=== PATIENT | female | born 1960 | race Caucasian/White ===

== ENCOUNTER 2020-01-21 14:04 | Emergency (ER) | payer SELFPAY ==
[2020-01-21 14:05] VITALS: BP 136/84; PULSE 80; RESP 18; TEMP 36.6; O2SAT 98; BMI 47.0
--- NOTE | 2020-01-21 14:27 | ED.DCSUM_ITS ---
- ER Visit Summary Date of Service: 01/21/20 Chief Complaint: Head pain History of Present Illness: The patient is a 59 F who presents with right-sided hip pain. Started 2 days ago. She states that it hurts to brush her hair and touch the right side of her head. She denies seeing any rashes. No fevers. She states that it sharp and throbbing. She took no medications for this at home. She denies any falls or trauma. Physical Examination: Vital signs reviewed. Head exam does show some tenderness of the right side of the scalp. There are no rashes seen. EENT exam unremarkable. Heart is regular rate and rhythm without murmurs. Lungs are clear to auscultation. Abdomen is soft and nontender. Extremities reveal no edema. Skin exam normal. Neurologic exam normal. Test Results: None performed Emergency Department Course and Treatment: The patient's neurologic exam is normal. Do not feel that a CT scan is necessary. I do not see any rashes that would indicate that this is shingles. He does not follow any specific dermatomal distribution. At this point I will treat her with naproxen. I will give her a primary care physician to follow-up with. She is going to monitor this area and if her rash does appear she is going to follow-up with the doctor or come back to the emergency department. Treatment Plan: [] Disposition: Discharge Impression: Cephalgia This note was generated with [employer] dictation software. It may contain incorrect words, spelling, and punctuation that were not noted in review of the chart prior to signing ED Disposition - Plan for ED Patient: Disposition: Home or Assisted Living Instructions: ED CEPHALGIA Tension Headache Referrals: NOT,DEFINED [Primary Care Provider] - Yesica Smith [NON-STAFF] -
[2020-01-21] MEDS: Naproxen 500 MG Tablet PO (14:46)
== END 2020-01-21 15:49 | disposition home or self-care (01) ==
LOC: ED 14:44
PROVIDERS: Emergency Provider Emergency Medicine
DX: R51 Headache (principal); J44.9 Chronic obstructive pulmonary disease, unspecified; Z79.51 Long term (current) use of inhaled steroids
CPT/HCPCS: 99282

== ENCOUNTER → 2020-05-06 11:27 | Outpatient (CLI) | payer SELFPAY ==
--- NOTE | 2020-05-06 11:40 | RAD_ITS ---
STUDY: X-RAY - RIGHT KNEE REASON FOR EXAM: Female, 59 years old. Pain TECHNIQUE: 4 view(s) of the knee. COMPARISON: None. FINDINGS: There is no evidence of fracture or dislocation. There are mild degenerative changes in the medial compartment. There are no radiodense foreign bodies. RAD/Knee 4 or More Views IMPRESSION: No fracture or dislocation in the right knee. Mild degenerative changes in the medial compartment. Electronically Signed: Martín Che, at 19:39 EDT Tel , Service support ,
== END ==
PROVIDERS: Referring Provider Nurse Practitioner Family; Visit Provider Nurse Practitioner Family
DX: M25.561 Pain in right knee (principal)
CPT/HCPCS: 73564

== ENCOUNTER 2020-11-25 09:44 | Emergency (ER) | payer SELFPAY ==
[2020-06-22 10:20] VITALS: BMI 47.0
[2020-11-25 09:45] VITALS: BP 157/100; PULSE 98; RESP 20; TEMP 36.3; O2SAT 95; BMI 39.9
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
[2020-11-25 10:33] VITALS: BP 148/87; PULSE 71; RESP 15; O2SAT 96
== END 2020-11-25 10:34 | disposition home or self-care (01) ==
LOC: ED 10:30
PROVIDERS: Emergency Provider Emergency Medicine
DX: S63.91XA Sprain of unspecified part of right wrist and hand, initial encounter (principal); S10.91XA Abrasion of unspecified part of neck, initial encounter; J44.9 Chronic obstructive pulmonary disease, unspecified; I10 Essential (primary) hypertension; Z87.891 Personal history of nicotine dependence; Y04.2XXA Assault by strike against or bumped into by another person, initial encounter; Y93.89 Activity, other specified; Y92.009 Unspecified place in unspecified non-institutional (private) residence as the place of occurrence of the external cause; Y99.8 Other external cause status
CPT/HCPCS: 73130; 99284

== ENCOUNTER → 2020-12-29 08:39 | Outpatient (CLI) | payer SELFPAY ==
[2020-12-29 09:33] LABS: Absolute Lymphocyte Count 1.98 X10^3/uL (0.83-4.51); Absolute Neutrophil Count 3.2 X10^3/uL (2.0-7.7); Basophil# 0.04 X10^3/uL; Basophil% 0.7 % (0-1); Eosinophil# 0.12 X10^3/uL; Eosinophils% 2.1 % (0-5); Hematocrit 45.3 % (37-47); Hemoglobin 14.5 g/dL (12.0-15.0); Lymphocyte # 1.98 X10^3/ul (4.0); Lymphocyte % 35.2 % (19-41); Mean Corpuscular Hgb 27.1 pg (27.0-32.0); Mean Corpuscular Volume 84.7 fL (81-99); Mean Platelet Vol. 10.4 fl (6.2-12.0); Monocyte% 5.3 % (0-10); NRBC Flagged by Analyzer 0 % (0-5); Neutrophil # 3.17 X10^3/uL (2.7-7.7); Neutrophil % 56.5 % (47-70); Platelet Count 234 K/mm3 (150-450); RBC Distribution Width CV 14.2 % (11.6-14.6); RBC Distribution Width SD 43.8 fl (35.1-43.9); Red Blood Count 5.35 M/mm3 (4.2-5.4); White Blood Count 5.6 K/mm3 (4.4-11.0)
[2020-12-29 10:31] LABS: Anion Gap 6 (5-15); BUN 19 mg/dL (7-18); Calcium,Total 8.9 mg/dL (8.5-10.1); Chloride 109 mmol/L (98-107); Cholesterol 181 mg/dL (200); Creatinine, Serum 0.61 mg/dL (0.55-1.02); EST Glomerular Filtration Rate 105 mL/min (>60); Est Glom Filt Rate - Afr Amer 128 mL/min (>60); Glucose 111 mg/dL (74-106); High Density Lipoprotein 57 mg/dL; Potassium 4.2 mmol/L (3.5-5.1); Sodium Level 138 mmol/L (136-145); Triglycerides 118 mg/dL; Very Low Density Lipoprotein 24 mg/dL (5-40)
== END ==
LOC: LAB 08:42
PROVIDERS: Referring Provider Family Medicine; Visit Provider Family Medicine
DX: E78.5 Hyperlipidemia, unspecified (principal)
CPT/HCPCS: 36415; 80048; 80061; 85025

== ENCOUNTER → 2021-01-14 12:24 | Outpatient (CLI) | payer OTHER, SELFPAY ==
--- NOTE | 2021-01-14 12:27 | BI_ITS ---
MAMMOGRAPHY - BILATERAL SCREENING REASON FOR EXAM: Female, 60 years old. Routine annual screening examination. PERTINENT HISTORY: Non-contributory. Prior left stereotactic breast biopsy. TECHNIQUE: Digital bilateral breast mary beth (3D mammographic acquisition) in the CC and MLO projections. 2-D mediolateral oblique (MLO) and craniocaudad (CC) views of both breasts were obtained. CAD: Full Field Digital Mammography with Computer Added Detection was performed. COMPARISON: Comparison is made with prior EXAMINATION dated 12/22/2008. FINDINGS: Breast Composition: The breasts are heterogeneously dense, which may obscure small masses. There are no dominant masses or suspicious calcifications. Tissue clip marker is seen in the upper lateral aspect of the left breast. A tissue clip marker is also seen in the anterior upper retroareolar region of the left breast as well. Stable small benign appearing bilateral axillary lymph nodes. No other significant abnormalities are identified. There has been no significant change since the prior study. BI/SCRN MAMM (CAD)W/MARY BETH BILAT IMPRESSION: Stable bilateral screening mammogram. Yearly follow-up mammogram recommended. (A) ASSESSMENT CATEGORY: BIRADS Category 2: Benign. A letter regarding these results will be sent to the patient by the facility within 30 days. Approximately 10% of breast cancers are not detected by mammography. A normal mammogram should not delay biopsy of a clinically suspicious abnormality. [id number] Electronically Signed: Geovanny Kent MD at 13:19 EDT , Service support ,
== END ==
DX: Z12.31 Encounter for screening mammogram for malignant neoplasm of breast (principal)
CPT/HCPCS: 77063; 77067

== ENCOUNTER → 2022-02-03 | Outpatient (CLI) | payer SELFPAY ==
--- NOTE | 2022-02-03 13:01 | BI_ITS ---
MAMMOGRAPHY - BILATERAL SCREENING REASON FOR EXAM: Female, 61 years old. Routine annual screening examination. PERTINENT HISTORY: Non-contributory. Remote left stereotactic breast biopsy. TECHNIQUE: Digital bilateral breast maryb eth (3D mammographic acquisition) in the CC and MLO projections. 2-D mediolateral oblique (MLO) and craniocaudad (CC) views of both breasts were obtained. CAD: Full Field Digital Mammography with Computer Added Detection was performed. COMPARISON: Comparison is made with prior study dated 01/14/2021. FINDINGS: Breast Composition: The breasts are heterogeneously dense, which may obscure small masses. There are no dominant masses or suspicious calcifications. Stable benign appearing bilateral axillary lymph nodes. A tissue clip marker is once again seen in the upper lateral aspect of the left breast as well as in the retroareolar region. No other significant abnormalities are identified. There has been no significant change since the prior study. BI/SCRN MAMM (CAD)W/MARY BETH BILAT IMPRESSION: Stable bilateral screening mammogram. Yearly follow-up mammogram recommended. (A) ASSESSMENT CATEGORY: BIRADS Category 2: Benign. A letter regarding these results will be sent to the patient by the facility within 30 days. Approximately 10% of breast cancers are not detected by mammography. A normal mammogram should not delay biopsy of a clinically suspicious abnormality. [id number] Electronically Signed: Geovanny Kent MD at 14:26 EDT ,
== END | disposition home or self-care (01) ==
LOC: OPBI 12:57
PROVIDERS: Visit Provider Nurse Practitioner Adult Health
DX: Z12.31 Encounter for screening mammogram for malignant neoplasm of breast (principal)
CPT/HCPCS: 77063; 77067

== ENCOUNTER 2022-09-07 13:01 | Inpatient (IN) | payer SELFPAY ==
[2022-09-07 13:02] VITALS: BP 132/78; PULSE 87; RESP 16; TEMP 36.6; O2SAT 96; BMI 40.1
--- NOTE | 2022-09-07 13:11 | EKG12_ITS ---
Test Reason : CP Blood Pressure : / mmHG Vent. Rate : 079 BPM Atrial Rate : 079 BPM P-R Int : 176 ms QRS Dur : 146 ms QT Int : 428 ms P-R-T Axes : 053 048 061 degrees QTc Int : 490 ms Normal sinus rhythm Right bundle branch block Abnormal ECG Confirmed by KYLAH COREY, JHOAN ([id number]), acquisition editor ALEXIS ROSS ([id number]) on 09/09/2022 10:28:31 A M Referred By: SEAN Confirmed By:ROSIBEL MONTERO MD
[2022-09-07 13:26] LABS: Absolute Lymphocyte Count 2.07 X10^3/uL (0.83-4.51); Absolute Neutrophil Count 2.7 X10^3/uL (2.0-7.7); Basophil# 0.03 X10^3/uL; Basophil% 0.6 % (0-1); Eosinophil# 0.14 X10^3/uL; Eosinophils% 2.7 % (0-5); Hematocrit 43.3 % (37-47); Hemoglobin 13.9 g/dL (12.0-15.0); Lymphocyte # 2.07 X10^3/ul (0.83-4.51); Lymphocyte % 39.4 % (19-41); Mean Corp Hgb Conc 32.1 g/dL (32-36); Mean Corpuscular Hgb 27.4 pg (27.0-32.0); Mean Corpuscular Volume 85.2 fL (81-99); Mean Platelet Vol. 10.3 fl (6.2-12.0); Monocyte# 0.29 X10^3/uL; Monocyte% 5.5 % (0-10); NRBC Flagged by Analyzer 0 % (0-5); Neutrophil % 51.4 % (47-70); Platelet Count 207 K/mm3 (150-450); RBC Distribution Width CV 13.8 % (11.6-14.6); RBC Distribution Width SD 42.9 fl (35.1-43.9); Red Blood Count 5.08 M/mm3 (4.2-5.4); White Blood Count 5.3 K/mm3 (4.4-11.0)
--- NOTE | 2022-09-07 13:50 | RAD_ITS ---
STUDY: X-RAY CHEST REASON FOR EXAM: Female, 62 years old. Chest pain TECHNIQUE: Single AP portable view of the chest. COMPARISON: None. FINDINGS: The lungs are clear and expanded. There is no demonstrated pleural abnormality. Normal size heart. Normal mediastinum and seema. Normal visualized pulmonary arteries. Normal visualized aortic arch and descending thoracic aorta. Normal visualized thoracic spine. Normal visualized ribs, clavicles, and shoulders. There is no demonstrated abnormality of the visualized soft tissue structures of the upper abdomen. RAD/Chest 1 View (Portable) IMPRESSION: Normal x-ray examination of the chest. Electronically Signed: Geovanny Kent MD at 14:12 EST ,
[2022-09-07 13:51] LABS: Anion Gap 5 (5-15); BUN 23 mg/dL (7-18); BUN/Creat Ratio 39.5 RATIO (10-20); Calcium,Total 8.8 mg/dL (8.5-10.1); Chloride 112 mmol/L (98-107); Creatinine, Serum 0.58 mg/dL (0.55-1.02); EST Glomerular Filtration Rate 111 mL/min (>60); Est Glom Filt Rate - Afr Amer 134 mL/min (>60); Estimated Creatinine Clearance 127.25 ml/min; Glucose 140 mg/dL (74-106); Potassium 3.8 mmol/L (3.5-5.1); Sodium Level 141 mmol/L (136-145); Troponin-I HS 121 pg/mL (3.0-54.0)
--- NOTE | 2022-09-07 15:00 | EDS_ITS ---
HPI History of Present Illness Chief Complaint: Nausea/Vomiting Informant: patient Narrative Narrative: 3-day history of nausea and vomiting. Initial symptoms with lightheaded symptoms prior to vomiting. She states too many to count. Nonbloody. Yesterday reported vomiting and diarrhea all day. No recent antibiotics. No abdominal pain. Reports occasional headache. Today no vomiting or diarrhea is tolerating oral fluids. Further discussion after midnight awakening with sharp chest pains left side with nausea lasted an hour. It reoccurred at 9:30 AM this morning similar presentation. No current symptoms. History of hypertension borderline diabetes hyperlipidemia. Remote tobacco history. History of COPD no home oxygen. Reports could not finish her stress test a year ago when she was referred to cardiology at [place]. No history of heart caths. Denies any allergies. Nonvaccinated for COVID. Denies myalgias. Reports had a melanoma removal 6 months ago under local analgesia left posterior shoulder. Prior similar symptoms: No PFSH PFSH Medical History COPD (chronic obstructive pulmonary disease) Diabetes GERD (gastroesophageal reflux disease) Hypertension Migraines Home Medications ergocalciferol (vitamin D2) 1,250 mcg (50,000 unit) capsule 1 cap PO FR SUPPLEMENT 01/21/20 [History Last Taken 09/02/22] lisinopril 10 mg tablet 10 mg PO DAILY 01/21/20 [History Last Taken 09/06/22] lovastatin 20 mg tablet,extended release 24 hr 20 mg PO QHS 01/21/20 [History Last Taken 09/06/22] montelukast 10 mg tablet 10 mg PO DAILY@1700 ALLERGIES 01/21/20 [History Last Taken 09/06/22 17:00] loratadine 10 mg tablet 10 mg PO DAILY@1700 ALLERGIES 06/22/20 [History Last Taken 09/06/22 17:00] ascorbic acid (vitamin C) 500 mg tablet (Vitamin C) 500 mg PO DAILY 09/07/22 [History Last Taken 09/06/22] omeprazole 40 mg capsule,delayed release 40 mg PO DAILY GERD 09/07/22 [History Last Taken 09/07/22] Allergy/AdvReac Type Severity Reaction Status Date / Time No Known Allergies Allergy Verified 09/07/22 13:04 Surgical History H/O knee surgery H/O: hysterectomy Social History Smoking Status: Former smoker alcohol intake: former substance use type: does not use ROS ROS ED Constitutional Constitutional ED: Denies chills, fever(s) or sweats Eyes Eyes: Denies change in vision ENT ENT ED: Denies dysphagia or sore throat Cardiovascular Cardiovascular: Reports chest pain; Denies leg edema, palpitations or racing heartbeat Respiratory/Chest Respiratory/Chest: Denies cough, dyspnea or dyspnea on exertion Gastrointestinal Gastrointestinal: Reports diarrhea and vomiting; Denies abdominal pain or nausea Genitourinary Genitourinary ED: Denies dysuria, hematuria or urinary frequency Musculoskeletal Musculoskeletal: Denies back pain, extremity pain or neck pain Integumentary Denies rash or wounds Neurologic Neurologic: Reports headache(s); Denies paresthesias or weakness EXAM Physical Exam Const Vital Signs: 09/07/22 13:02 09/07/22 13:12 09/07/22 14:00 Temperature 98 F Temperature Source Temporal Pulse Rate 87 Respiratory Rate 16 Respiratory Effort Normal Non-Labored Respiratory Pattern Normal Blood Pressure 132/78 H Blood Pressure Mean 96 Pulse Ox 96 Oxygen Delivery Method Room Air Room Air MDM MDM MDM Narrative Medical decision making narrative: Patient EKG new right bundle branch block compared to 2014 new T wave version V3. Currently no chest pains no abdominal pain. Moist mucosal membranes. Nursing protocol initiated work-up, 1 view chest x-ray reviewed by myself and read by radiology shows no acute process. Labs with normal creatinine 0.58. White count 5.3 hemoglobin 13.9. Troponin returned at 121. Patient meeting NSTEMI criteria 2 episodes chest pains today. She has risk factors. However was pretty atypical with sharp pains. No recent PE risk factors. She was given aspirin for her NSTEMI criteria. I spoke with covering skin care specialist Dr. Dee, no further anticoagulation at this time with atypical presentation. We will trend troponins and decide at that time. He will follow as a clinical sales consultant and decide further testing. I spoke with hospitalist Dr. Vazquez for admission to PCU. I did add a COVID testing with her vomiting and diarrhea and headaches. She is nonvaccinated for COVID. COVID returned negative. Repeat troponin down to 118. Lab Data Attestation: I reviewed the patient's lab results. Labs: Laboratory Results - last 24 hr 09/07/22 09/07/22 09/07/22 13:15 13:15 13:15 WBC 5.3 RBC 5.08 Hgb 13.9 Hct 43.3 MCV 85.2 MCH 27.4 MCHC 32.1 RDW Std Deviation 42.9 RDW Coeff of Kameron 13.8 Plt Count 207 MPV 10.3 Immature Gran % (Auto) 0.400 Neut % (Auto) 51.4 Lymph % (Auto) 39.4 [place] % (Auto) 5.5 Eos % (Auto) 2.7 Baso % (Auto) 0.6 Absolute Neuts (auto) 2.7 Absolute Lymphs (auto) 2.07 Nucleated RBC % 0 PT 13.1 INR 1.0 APTT 27.9 Sodium 141 Potassium 3.8 Chloride 112 H Carbon Dioxide 24.0 Anion Gap 5 BUN 23 H Creatinine 0.58 Estim Creat Clear Calc 127.25 Est GFR (MDRD) Af Amer 134 Est GFR (MDRD) Non-Af 111 BUN/Creatinine Ratio 39.5 H Glucose 140 H Calcium 8.8 Troponin I High Sens 121 H* 09/07/22 15:06 WBC RBC Hgb Hct MCV MCH MCHC RDW Std Deviation RDW Coeff of Kameron Plt Count MPV Immature Gran % (Auto) Neut % (Auto) Lymph % (Auto) [place] % (Auto) Eos % (Auto) Baso % (Auto) Absolute Neuts (auto) Absolute Lymphs (auto) Nucleated RBC % PT INR APTT Sodium Potassium Chloride Carbon Dioxide Anion Gap BUN Creatinine Estim Creat Clear Calc Est GFR (MDRD) Af Amer Est GFR (MDRD) Non-Af BUN/Creatinine Ratio Glucose Calcium Troponin I High Sens 118 H Radiography Diagnostic Testing: Clinical Impression(s) from Imaging Studies Chest X-Ray 09/07/22 13:50 IMPRESSION: Normal x-ray examination of the chest. Electronically Signed: Geovanny Kent MD at 14:12 EST , Critical Care Time Critical Care Time: Yes Critical care time (excluding procedures): 30-74 minutes, Discussing w/Patient &/or Family/Quick Print Operator, Discussing w/Consultants, Arranging Admission or Transfer, Performing Direct Patient Care at Bedside and - (35 minutes) Discharge Plan Dx/Rx/DC Orders Clinical Impression: Non-ST elevation MT (NSTEMI), Chest pain, Vomiting and diarrhea Disposition Disposition: Acute Care Hospital [facility] Discharge Date/Time: 09/07/22 16:05
[2022-09-07] MEDS: Aspirin 81 MG TAB.CHEW 324 MG PO (15:09)
[2022-09-07] MEDS: 0.9% Normal Saline 1,000 ML 100 ML IV (15:09)
--- NOTE | 2022-09-07 15:09 | NURSING ---
DR BLUE GLASS
--- NOTE | 2022-09-07 15:13 | HP.PCM.HOS_ITS ---
HPI - General General Date of Admission: 09/07/22 Date of Service: 09/07/22 Chief Complaint: Nausea, vomiting - a day prior Chest pain -on and off, 2 days HPI Flower SHERIDAN, is a 62 F who presents with the above. Patient has past medical history of hypertension, hyperlipidemia, GERD who started having nausea and vomiting a day prior to admission. This was associated with chest pain that came on and off. She denied any diaphoresis, palpitations but admits to dizziness. She denied eating any new food, sick contacts, fever or chills. She has not had any nausea or vomiting today because she had no eating. Patient describes the chest pain as sharp, substernal, comes on and off, lasts about an hour, not related to activity. Vitals in the ED showed BP of 132/78, heart rate 87, RR 16, temperature 98F, oxygen sat 98% on room air. CBCD and CMP is unremarkable. Troponins are 121-->118. EKG shows new RBBB. Chest x-ray is unremarkable. [facility] Medical History COPD (chronic obstructive pulmonary disease) Diabetes GERD (gastroesophageal reflux disease) Hypertension Migraines Home Medications ergocalciferol (vitamin D2) 1,250 mcg (50,000 unit) capsule 1 cap PO FR SUPPLEMENT 01/21/20 [History Last Taken 09/02/22] lisinopril 10 mg tablet 10 mg PO DAILY 01/21/20 [History Last Taken 09/06/22] lovastatin 20 mg tablet,extended release 24 hr 20 mg PO QHS 01/21/20 [History Last Taken 09/06/22] montelukast 10 mg tablet 10 mg PO DAILY@1700 ALLERGIES 01/21/20 [History Last Taken 09/06/22 17:00] loratadine 10 mg tablet 10 mg PO DAILY@1700 ALLERGIES 06/22/20 [History Last Taken 09/06/22 17:00] ascorbic acid (vitamin C) 500 mg tablet (Vitamin C) 500 mg PO DAILY 09/07/22 [History Last Taken 09/06/22] omeprazole 40 mg capsule,delayed release 40 mg PO DAILY GERD 09/07/22 [History Last Taken 09/07/22] Allergy/AdvReac Type Severity Reaction Status Date / Time No Known Allergies Allergy Verified 09/07/22 13:04 Surgical History (Updated 09/07/22 @ 17:[address] Mary Lou Vazquez MD) H/O knee surgery H/O: hysterectomy Social History (Updated 09/07/22 @ 17:[address] Mary Lou Vazquez MD) Smoking Status: Former smoker alcohol intake: former substance use type: does not use ROS ROS Narrative Constitutional: Denies: Anorexia, Chills, Fever, Night Sweats, Weight Change Eyes: Denies: Blurred vision, Cataracts, Conjunctivae Inflammation, Pain, Redness, Vision Change HEENT: Denies: Difficulty Hearing, Difficulty Swallowing, Head Aches, Hearing Changes, Sinus Congestion, Sinus Drainage Cardiovascular: See HPI Respiratory: Denies: Cough, Shortness of breath at rest, Sputum production Gastrointestinal: Denies: Abdominal Pain, Nausea, Vomiting Genitourinary: Denies: Dysuria Musculoskeletal: Denies: Joint Pain, Joint stiffness, Joint swelling, Joint Tenderness Skin: Denies: Rash, Wounds Neurological: Denies: Numbness, Tingling, Focal weakness Vital Signs Vital Signs Vital Signs: 09/07/22 13:02 09/07/22 13:12 09/07/22 14:00 Temperature 98 F Temperature Source Temporal Pulse Rate 87 Respiratory Rate 16 Respiratory Effort Normal Non-Labored Respiratory Pattern Normal Blood Pressure 132/78 H Blood Pressure Mean 96 Pulse Ox 96 Oxygen Delivery Method Room Air Room Air Weight Weight: 81.193 kg Body Mass Index (BMI) 40.1 Physical Exam Narrative Physical exam: General: Alert, Oriented x3, Cooperative HEENT: Atraumatic Oral: Moist Mucosa Neck: Supple Lungs: Diminished to auscultation, chest pain is not reproducible Cardiovascular: HS I+II, regular, no murmurs Abdomen: Bowel Sounds Present, Soft, Non Tender Extremities: No edema Skin: No rashes, No breakdown Neurological: Grossly intact Psych/Mental Status: Appropriate Results Lab / Micro Data Result Diagrams: 09/07/22 13:15 09/07/22 13:15 Labs: Laboratory Results - last 24 hr 09/07/22 13:15: WBC 5.3, RBC 5.08, Hgb 13.9, Hct 43.3, MCV 85.2, MCH 27.4, MCHC 32.1, RDW Std Deviation 42.9, RDW Coeff of Kameron 13.8, Plt Count 207, MPV 10.3, Immature Gran % (Auto) 0.400, Neut % (Auto) 51.4, Lymph % (Auto) 39.4, [place] % (Auto) 5.5, Eos % (Auto) 2.7, Baso % (Auto) 0.6, Absolute Neuts (auto) 2.7, Absolute Lymphs (auto) 2.07, Nucleated RBC % 0 09/07/22 13:15: Sodium 141, Potassium 3.8, Chloride 112 H, Carbon Dioxide 24.0, Anion Gap 5, BUN 23 H, Creatinine 0.58, Estim Creat Clear Calc 127.25, Est GFR (MDRD) Af Amer 134, Est GFR (MDRD) Non-Af 111, BUN/Creatinine Ratio 39.5 H, Glucose 140 H, Calcium 8.8, Troponin I High Sens 121 H* Radiology Impression Chest X-Ray 09/07/22 13:50 IMPRESSION: Normal x-ray examination of the chest. Electronically Signed: Geovanny Kent MD at 14:12 EST , Assessment & Plan Assessment/Plan (1) Non-ST elevation DC (NSTEMI): PLAN: Plan 1. Acute NSTEMI, unclear type for now, in a patient with cardiovascular risk factors EKG shows new right bundle branch block, Troponins are 121-->118 Admit to PCU, trend troponins, cardiology consult Continue aspirin, statin 2. Acute nausea and vomiting, appears resolved 3. Hypertension/Hyperlipidemia, stable Continue on lisinopril, lovastatin 4. GERD, continue on PPI. 5. Borderline diabetes, will continue to monitor with insulin sliding scale with blood glucose checks 6. DVT prophylaxis?Lovenox subcu Charges/Coding Visit Charges Inpatient E&M: 10025 Init Hosp L3
[2022-09-07 15:15] LABS: Prothrombin Time (Protime)PT. 13.1 SECONDS (11.7-14.9)
[2022-09-07 15:16] LABS: Partial Thromboplast Time 27.9 Seconds (24.1-36.2)
--- NOTE | 2022-09-07 15:25 | NURSING ---
[facility] NSTEMI, CHEST PAIN
[2022-09-07 15:34] LABS: Troponin-I HS 118 pg/mL (3.0-54.0)
[2022-09-07 16:20] VITALS: BP 134/79; PULSE 70; RESP 14; TEMP 36.7; O2SAT 97
[2022-09-07 16:21] VITALS: BMI 39.2
[2022-09-07 16:35] VITALS: PULSE 71
--- NOTE | 2022-09-07 16:47 | EKG12_ITS ---
Test Reason : AM EKG Blood Pressure : / mmHG Vent. Rate : 073 BPM Atrial Rate : 073 BPM P-R Int : 192 ms QRS Dur : 146 ms QT Int : 454 ms P-R-T Axes : 058 066 047 degrees QTc Int : 500 ms Normal sinus rhythm Right bundle branch block Abnormal ECG When compared with ECG of 07-SEP-2022 13:10, MANUAL COMPARISON REQUIRED, DATA IS UNCONFIRMED Confirmed by ISMAEL COREY, RIVERA ([id number]), photographic editor ALEXIS ROSS ([id number]) on 09/13/2022 11:31:40 AM Referred By: BLUE Confirmed By:RIVERA GUEVARA MD
--- NOTE | 2022-09-07 17:24 | PCM.CONS.C ---
Assessment & Plan Assessment/Plan (1) Chest pain: PLAN: She presents with chest discomfort with some features which appear to be noncardiac. Her cardiac enzymes are abnormal in the range of an non-ST elevation myocardial infarction. It appears that this does not particularly have a rise and fall. However due to her risk factors at this particular time I would suggest that we definitively exclude obstructive coronary disease by performing a left heart catheterization. Depending on the findings further recommendations will be made. The risk benefits alternatives have been explained to her she understands and agrees to proceed. HPI Consult Data Date of Consult: 09/07/22 HPI Narrative HPI Narrative: BOBBY SHERIDAN, is a 62 F who presents to the emergency room with a 3-day history of chest discomfort described as sharp but sometimes dull in the center of her chest occurring 3 days in a row. It was nonassertive persuaded by activity there was minimal radiation. She does have a history of hypertension hyperlipidemia and gastroesophageal reflux. She denies any dizziness or diaphoresis near syncope or syncope. In the emergency room she was evaluated with an EKG which demonstrated a right bundle branch block with no acute changes but cardiac enzymes were elevated. Cardiology was called for further evaluation and management. She says that she has been compliant with her medications and currently is pain-free. She has not had any previous cardiac testing. [facility] Medical History COPD (chronic obstructive pulmonary disease) Diabetes GERD (gastroesophageal reflux disease) Hypertension Migraines Home Medications ergocalciferol (vitamin D2) 1,250 mcg (50,000 unit) capsule 1 cap PO FR SUPPLEMENT 01/21/20 [History Last Taken 09/02/22] lisinopril 10 mg tablet 10 mg PO DAILY 01/21/20 [History Last Taken 09/06/22] lovastatin 20 mg tablet,extended release 24 hr 20 mg PO QHS 01/21/20 [History Last Taken 09/06/22] montelukast 10 mg tablet 10 mg PO DAILY@1700 ALLERGIES 01/21/20 [History Last Taken 09/06/22 17:00] loratadine 10 mg tablet 10 mg PO DAILY@1700 ALLERGIES 06/22/20 [History Last Taken 09/06/22 17:00] ascorbic acid (vitamin C) 500 mg tablet (Vitamin C) 500 mg PO DAILY 09/07/22 [History Last Taken 09/06/22] omeprazole 40 mg capsule,delayed release 40 mg PO DAILY GERD 09/07/22 [History Last Taken 09/07/22] Allergy/AdvReac Type Severity Reaction Status Date / Time No Known Allergies Allergy Verified 09/07/22 13:04 Surgical History H/O knee surgery H/O: hysterectomy Social History Smoking Status: Former smoker alcohol intake: former substance use type: does not use ROS Constitutional Constitutional: Denies fever(s) or weight loss Eyes Eyes: Reports systems reviewed and no addt'l complaints, except as documented ENT HEENT: Reports systems reviewed and no addt'l complaints, except as documented Cardiovascular Cardiovascular: Reports chest pain at rest and chest pain with activity; Denies dyspnea at rest, dyspnea on exertion, edema, palpitations or paroxysmal nocturnal dyspnea Respiratory/Chest Respiratory/Chest: Denies dyspnea on exertion, productive cough, shortness of breath at rest or shortness of breath with exertion Gastrointestinal Gastrointestinal: Denies change in bowel habits, nausea, vomiting or weight changes Genitourinary Genitourinary: Denies difficulty urinating Musculoskeletal Musculoskeletal: Denies joint stiffness or muscle weakness Integumentary Integumentary: Denies lesions Neurologic Neurologic: Denies dizziness or syncope Psychiatric Psychiatric: Denies anxiety Endocrine Endocrinology: Denies excessive sweating or fatigue Hematologic/Lymphatic Hematologic/Lymphatic: Denies anemia Allergic/Immunologic Allergic/Immunologic: Denies seasonal rhinorrhea Physical Exam Const alert, oriented x3 and no apparent distress General Appearance: cooperative HEENT hearing grossly normal bilaterally Head and Scalp: atraumatic Eyes EOMs intact bilaterally Neck General: normal visual inspection Chest inspection of chest normal and palpation of chest normal Resp normal respiratory effort Auscultation: clear to auscultation bilaterally Cardio regular rate, regular rhythm, S1 normal heart sound and S2 normal heart sound Jugular Venous Distention: JVD GI normal to inspection, nondistended, normoactive bowel sounds Extremity normal capillary refill and no pedal edema Peripheral Pulses: Yes pulses 2+ throughout and femoral pulses present Skin no rashes or lesions noted Neuro oriented x3 and CN's II-XII intact bilaterally Psych Appearance: grossly normal and appropriate Risk Stratification Risk Stratification Applicable: Yes Age >/= 65: No >/= 3 CAD Risk Factors (HTN, HLD, DM, family hx of CAD, or current smoker): No Aspirin Use in the Past 7 Days: No Severe Angina (>/= episodes in 24 hours): No EKG ST Changes >/= 0.5mm: No Positive Cardiac Marker: Yes MIAN Risk Stratification Score: 1 MIAN % Risk: 5% Risk Objective Data Vital Signs: Vital Signs Temp Pulse Resp BP Pulse Ox O2 Del Method 98.1 F 71 14 134/79 H 97 Room Air 09/07/22 16:20 09/07/22 16:35 09/07/22 16:20 09/07/22 16:20 09/07/22 16:20 09/07/22 16:43 Oxygen Delivery Method Room Air Weight: 174 lb 13.225 oz Body Mass Index (BMI) 39.2 Lab / Micro Data Result Diagrams: 09/07/22 13:15 09/07/22 13:15 Labs: Laboratory Results - last 24 hr 09/07/22 13:15: WBC 5.3, RBC 5.08, Hgb 13.9, Hct 43.3, MCV 85.2, MCH 27.4, MCHC 32.1, RDW Std Deviation 42.9, RDW Coeff of [place]amer[place] 13.8, Plt Count 207, MPV 10.3, Immature Gran % (Auto) 0.400, Neut % (Auto) 51.4, Lymph % (Auto) 39.4, [place] % (Auto) 5.5, Eos % (Auto) 2.7, Baso % (Auto) 0.6, Absolute Neuts (auto) 2.7, Absolute Lymphs (auto) 2.07, Nucleated RBC % 0 09/07/22 13:15: Sodium 141, Potassium 3.8, Chloride 112 H, Carbon Dioxide 24.0, Anion Gap 5, BUN 23 H, Creatinine 0.58, Estim Creat Clear Calc 127.25, Est GFR (MDRD) Af Amer 134, Est GFR (MDRD) Non-Af 111, BUN/Creatinine Ratio 39.5 H, Glucose 140 H, Calcium 8.8, Troponin I High Sens 121 H* 09/07/22 13:15: PT 13.1, INR 1.0, APTT 27.9 09/07/22 15:06: Troponin I High Sens 118 H Micro: Microbiology 09/07/22 14:59 Nasal Secretion SARS-CoV-2 Antigen (Rapid) - Final Cardiology Labs/Tests 09/07/22 13:15: WBC 5.3, RBC 5.08, Hgb 13.9, Hct 43.3, MCV 85.2, MCH 27.4, MCHC 32.1, Plt Count 207, MPV 10.3, Immature Gran % (Auto) 0.400, Neut % (Auto) 51.4, Lymph % (Auto) 39.4, [place] % (Auto) 5.5, Eos % (Auto) 2.7, Baso % (Auto) 0.6, Absolute Neuts (auto) 2.7, Nucleated RBC % 0 09/07/22 13:15: Sodium 141, Potassium 3.8, Chloride 112 H, Carbon Dioxide 24.0, Anion Gap 5, BUN 23 H, Creatinine 0.58, Est GFR (MDRD) Af Amer 134, Est GFR (MDRD) Non-Af 111, BUN/Creatinine Ratio 39.5 H, Glucose 140 H, Calcium 8.8 09/07/22 13:15: PT 13.1, INR 1.0, APTT 27.9 Rhythm: EKG: ECHO: Stress Test: Cardiac Cath: PCI: CT Surgery: Holter monitor: EPS: PPM: CXR: Chest CT Scan: Radiography Diagnostic Testing: Radiology Impression Chest X-Ray 09/07/22 13:50 IMPRESSION: Normal x-ray examination of the chest. Electronically Signed: Geovanny Kent MD at 14:12 EST ,
[2022-09-07] MEDS: Famotidine 200 MG/20 ML MDV 20 MG in 0.9% Normal Saline (Pres. free 8 ML 300 MG IV (17:27)
[2022-09-07 19:37] VITALS: PULSE 81
[2022-09-07 19:41] LABS: Troponin-I HS 120 pg/mL (3.0-54.0)
[2022-09-07 22:00] VITALS: BP 128/78; PULSE 78; RESP 16; TEMP 36.7; O2SAT 97
[2022-09-07] MEDS: Atorvastatin Calcium 10 MG Tablet PO (22:10)
[2022-09-07 22:31] LABS: Bedside Glucose 120 mg/dL (74-106)
[2022-09-08] VITALS (14 sets, daily range): BP systolic 117–146; BP diastolic 68–85; PULSE 66–84; RESP 12–16; TEMP 36.4–37; O2SAT 70–98
--- NOTE | 2022-09-08 05:55 | EKG12_ITS ---
Test Reason : cp Blood Pressure : / mmHG Vent. Rate : 065 BPM Atrial Rate : 065 BPM P-R Int : 184 ms QRS Dur : 144 ms QT Int : 456 ms P-R-T Axes : 043 060 045 degrees QTc Int : 474 ms Normal sinus rhythm Right bundle branch block Abnormal ECG When compared with ECG of 07-SEP-2022 13:10, MANUAL COMPARISON REQUIRED, DATA IS UNCONFIRMED Confirmed by ISMAEL COREY, RIVERA ([id number]), industrial editor ALEXIS ROSS ([id number]) on 09/13/2022 11:32:14 AM Referred By: Taylor Confirmed By:RIVERA GUEVARA MD
[2022-09-08 06:12] LABS: Absolute Lymphocyte Count 2.17 X10^3/uL (0.83-4.51); Absolute Neutrophil Count 2.4 X10^3/uL (2.0-7.7); Basophil# 0.02 X10^3/uL; Basophil% 0.4 % (0-1); Eosinophil# 0.15 X10^3/uL; Hematocrit 39.8 % (37-47); Hemoglobin 12.6 g/dL (12.0-15.0); Lymphocyte # 2.17 X10^3/ul (0.83-4.51); Lymphocyte % 43.1 % (19-41); Mean Corp Hgb Conc 31.7 g/dL (32-36); Mean Corpuscular Volume 85.4 fL (81-99); Mean Platelet Vol. 10.5 fl (6.2-12.0); Monocyte# 0.31 X10^3/uL; Monocyte% 6.2 % (0-10); NRBC Flagged by Analyzer 0 % (0-5); Neutrophil # 2.37 X10^3/uL (2.7-7.7); Neutrophil % 46.9 % (47-70); Platelet Count 190 K/mm3 (150-450); RBC Distribution Width CV 14.1 % (11.6-14.6); RBC Distribution Width SD 43.7 fl (35.1-43.9); Red Blood Count 4.66 M/mm3 (4.2-5.4)
[2022-09-08] MEDS: Lisinopril 10 MG Tablet PO (06:34)
[2022-09-08] MEDS: Aspirin 81 MG TAB.CHEW PO (06:34)
[2022-09-08 06:45] LABS: ALB/GLOB Ratio 1.2 RATIO (0.9-2.4); AST(SGOT) 18 U/L (15-37); Alanine Aminotransfer ALT/SGPT 30 U/L (13-56); Albumin, Serum 3.1 g/dL (3.2-5.0); Alkaline Phosphatase 67 U/L (45-117); Anion Gap 5 (5-15); BUN 21 mg/dL (7-18); BUN/Creat Ratio 45.3 RATIO (10-20); Calcium,Total 8.3 mg/dL (8.5-10.1); Chloride 112 mmol/L (98-107); Creatinine, Serum 0.46 mg/dL (0.55-1.02); EST Glomerular Filtration Rate 144 mL/min (>60); Est Glom Filt Rate - Afr Amer 175 mL/min (>60); Estimated Creatinine Clearance 163.43 ml/min; Globulin 2.5 g/dL (2.2-4.2); Glucose 113 mg/dL (74-106); Potassium 3.8 mmol/L (3.5-5.1); Protein, Total 5.6 g/dL (6.4-8.2); Sodium Level 141 mmol/L (136-145)
[2022-09-08 07:15] LABS: Bedside Glucose 112 mg/dL (74-106)
[2022-09-08] MEDS: 0.9% Normal Saline 1,000 ML 15 ML IV (07:42)
--- NOTE | 2022-09-08 09:17 | PN.HOSP_ITS ---
Subjective Subjective Doing well, denies any significant chest pain. Troponins are stabilized, no issues overnight Objective Data Objective Data Vital Signs: Vital Signs Temp Pulse Resp BP Pulse Ox O2 Del Method 98.6 F 72 16 146/75 H 97 Room Air 09/08/22 06:30 09/08/22 07:09 09/08/22 06:30 09/08/22 06:30 09/08/22 06:30 09/08/22 07:47 Oxygen Delivery Method Room Air Weight: 182 lb 5.156 oz Body Mass Index (BMI) 39.2 Intake & Output: Intake and Output for Last 24 Hours 09/07/22 09/08/22 09/09/22 03:59 03:59 03:59 Intake Total 621.67 / 621.67 763.33 / 763.33 Balance 621.67 / 621.67 763.33 / 763.33 Lab / Micro Data Result Diagrams: 09/08/22 05:47 09/08/22 05:47 Labs: Laboratory Results - last 24 hr 09/07/22 13:15: WBC 5.3, RBC 5.08, Hgb 13.9, Hct 43.3, MCV 85.2, MCH 27.4, MCHC 32.1, RDW Std Deviation 42.9, RDW Coeff of [place]amer[place] 13.8, Plt Count 207, MPV 10.3, Immature Gran % (Auto) 0.400, Neut % (Auto) 51.4, Lymph % (Auto) 39.4, [place] % (Auto) 5.5, Eos % (Auto) 2.7, Baso % (Auto) 0.6, Absolute Neuts (auto) 2.7, Absolute Lymphs (auto) 2.07, Nucleated RBC % 0 09/07/22 13:15: Sodium 141, Potassium 3.8, Chloride 112 H, Carbon Dioxide 24.0, Anion Gap 5, BUN 23 H, Creatinine 0.58, Estim Creat Clear Calc 127.25, Est GFR (MDRD) Af Amer 134, Est GFR (MDRD) Non-Af 111, BUN/Creatinine Ratio 39.5 H, Glucose 140 H, Calcium 8.8, Troponin I High Sens 121 H* 09/07/22 13:15: PT 13.1, INR 1.0, APTT 27.9 09/07/22 15:06: Troponin I High Sens 118 H 09/07/22 19:18: Troponin I High Sens 120 H 09/07/22 22:05: POC Glucose 120 H 09/08/22 05:47: WBC 5.0, RBC 4.66, Hgb 12.6, Hct 39.8, MCV 85.4, MCH 27.0, MCHC 31.7 L, RDW Std Deviation 43.7, RDW Coeff of [place]amer[place] 14.1, Plt Count 190, MPV 10.5, Immature Gran % (Auto) 0.400, Neut % (Auto) 46.9 L, Lymph % (Auto) 43.1 H, [place] % (Auto) 6.2, Eos % (Auto) 3.0, Baso % (Auto) 0.4, Absolute Neuts (auto) 2.4, Absolute Lymphs (auto) 2.17, Nucleated RBC % 0 09/08/22 05:47: Sodium 141, Potassium 3.8, Chloride 112 H, Carbon Dioxide 24.0, Anion Gap 5, BUN 21 H, Creatinine 0.46 L, Estim Creat Clear Calc 163.43, Est GFR (MDRD) Af Amer 175, Est GFR (MDRD) Non-Af 144, BUN/Creatinine Ratio 45.3 H, Gl ucose 113 H, Calcium 8.3 L, Total Bilirubin 0.40, AST 18, ALT 30, Alkaline Phosphatase 67, Total Protein 5.6 L, Albumin 3.1 L, Globulin 2.5, Albumin/Globulin Ratio 1.2 09/08/22 06:32: POC Glucose 112 H Micro: Microbiology 09/07/22 14:59 Nasal Secretion SARS-CoV-2 Antigen (Rapid) - Final Radiography Diagnostic Testing: Radiology Impression Chest X-Ray 09/07/22 13:50 IMPRESSION: Normal x-ray examination of the chest. Electronically Signed: Geovanny Kent MD at 14:12 EST , Physical Exam Narrative General: Alert, Oriented x3, Cooperative, No apparent distress HEENT: Atraumatic, PERRLA, EOMI, Normocephalic Oral: Moist Mucosa Neck: Supple, No JVD Lungs: Diminished, Normal air movement, No rhonchi, No wheeze, No rales Cardiovascular: Regular rate, Regular Rhythm, Normal S1, Normal S2, No murmurs Abdomen: Soft, Non Tender, Non-Distended, No Hepato-splenomegaly Extremities: No edema, Capillary Refill Less than 3 Seconds Skin: No rashes, No breakdown Musculoskeletal: No Tenderness to Palpation of Joints or Extremities Neurological: Cranial nerves II-XII grossly intact, Motor Exam 5/5 strength throughout, Sensory exam intact to light touch and pain Psych/Mental Status: Normal Affect, Appropriate Assessment & Plan Assessment/Plan (1) Non-ST elevation ID (NSTEMI): PLAN: Plan 1. Acute non-STEMI/HTN/HLD ? EKG with new right bundle branch block, troponins are stable at around 120 ? Appreciate cardiology's input ? Plan for heart cath today ? Continue with as aspirin and statin ? Continue with her blood pressure med 2. GERD ? Stable ? Continue with PPI DVT: Lovenox Charges/Coding Visit Charges Inpatient E&M: 72541 Subs Hosp L2
--- NOTE | 2022-09-08 09:57 | CL.D_ITS ---
Patient Name: BOBBY SHERIDAN Study Date: 09/08/2022 Performing: Jovani Dee MD Ht: 56 inches 142.24 cm : 1960 Wt: 182.32 lbs 82.7 kg Age: 62 Gender: female BSA: 1.71 PROCEDURE(S) PERFORMED DC01-(72484)LHC/COR/LV CLINICAL PROFILE AND INDICATIONS Indications: Suspected CAD Heart Failure: None Stress/Imaging Stress/Image Study Performed: No CAD Presentations: Symptom unlikely to be ischemic. CONCLUSIONS Normal coronary arteries Normal LV size, wall motion,and systolic function RECOMMENDATIONS Medical therapy DESCRIPTION OF PROCEDURE The patient arrived to the procedure lab. The risks and benefits of the procedure as well as a full description of our services here and current unavailability of surgical backup were fully explained to the patient and/or their significant other prior to the catheterization. The Timeout was completed, verifying the correct patient and procedure. The patient's procedural site was prepped and draped in the usual fashion. Local anesthetic was given subcutaneously to right radial region with Lidocaine 2%. Using a modified Seldinger technique, arterial access was obtained via the right radial artery, a 6Fr sheath was inserted. Left Coronary Artery selective angiography was performed in multiple views using a 5 Fr. 4.0 [place] catheter. Right Coronary Artery selective angiography was then performed in multiple views using a 5 Fr. 4.0 [place] catheter. Left Ventriculography was performed in ENRIQUEZ projection using a 5 Fr. Pigtail catheter. LV to AO pullback pressures were then recorded.The arterial sheath was pulled and a TR Band was applied for hemostasis CORONARY ANGIOGRAPHY DOMINANCE: Right Dominant LEFT HEART ASSESSMENT Left Ventricular Ejection Fraction: by LV Gram 60 % Normal LV wall motion Normal Left Ventricular systolic function Normal Left Ventricular systolic function LEFT MAIN: Angiographically normal LEFT ANTERIOR DESCENDING ARTERY: Angiographically normal CIRCUMFLEX ARTERY: Angiographically normal RIGHT CORONARY ARTERY: Angiographically normal COMPLICATIONS PROCEDURE MEDICATIONS Fentanyl 50 mcg IV Versed 1 mg IV Versed 1 mg IV Oxygen: 2 L/min via nasal cannula Heparin given IA 09/08/2022 09:40:17 Verapamil 2.5mg, Ntg 100mcgs, 3000 units of Heparin given IA 09/08/2022 09:40:17 SUMMARY OF HEMODYNAMIC DATA Time AIR REST ECG 09:12:54 ECG 09:13:30 AO 138/78 (104) SA 09:42:28 LV 119/14, 23 09:48:07 LV 125/12, 21 09:48:09 LV 122/16, 26 09:48:58 LVp 128/13, 26 09:49:03 AOp 132/76 (100) 09:49:08 Signed By Jovani Dee MD On 09/08/2022 09:57:04 Jovani Dee MD
--- NOTE | 2022-09-08 09:59 | PCM.PN.CARD ---
Subjective Subjective Patient seen and evaluated Objective Data Vital Signs: Vital Signs Temp Pulse Resp BP Pulse Ox O2 Del Method 98.6 F 72 16 146/75 H 97 Room Air 09/08/22 06:30 09/08/22 07:09 09/08/22 06:30 09/08/22 06:30 09/08/22 06:30 09/08/22 07:47 Oxygen Delivery Method Room Air Weight: 182 lb 5.156 oz Body Mass Index (BMI) 39.2 Intake & Output: Intake and Output for Last 24 Hours 09/06/22 09/07/22 09/08/22 23:59 23:59 23:59 Intake Total 621.67 / 621.67 763.33 / 763.33 Balance 621.67 / 621.67 763.33 / 763.33 Lab / Micro Data Result Diagrams: 09/08/22 05:47 09/08/22 05:47 Labs: Laboratory Results - last 24 hr 09/07/22 13:15: WBC 5.3, RBC 5.08, Hgb 13.9, Hct 43.3, MCV 85.2, MCH 27.4, MCHC 32.1, RDW Std Deviation 42.9, RDW Coeff of Kameron 13.8, Plt Count 207, MPV 10.3, Immature Gran % (Auto) 0.400, Neut % (Auto) 51.4, Lymph % (Auto) 39.4, [place] % (Auto) 5.5, Eos % (Auto) 2.7, Baso % (Auto) 0.6, Absolute Neuts (auto) 2.7, Absolute Lymphs (auto) 2.07, Nucleated RBC % 0 09/07/22 13:15: Sodium 141, Potassium 3.8, Chloride 112 H, Carbon Dioxide 24.0, Anion Gap 5, BUN 23 H, Creatinine 0.58, Estim Creat Clear Calc 127.25, Est GFR (MDRD) Af Amer 134, Est GFR (MDRD) Non-Af 111, BUN/Creatinine Ratio 39.5 H, Glucose 140 H, Calcium 8.8, Troponin I High Sens 121 H* 09/07/22 13:15: PT 13.1, INR 1.0, APTT 27.9 09/07/22 15:06: Troponin I High Sens 118 H 09/07/22 19:18: Troponin I High Sens 120 H 09/07/22 22:05: POC Glucose 120 H 09/08/22 05:47: WBC 5.0, RBC 4.66, Hgb 12.6, Hct 39.8, MCV 85.4, MCH 27.0, MCHC 31.7 L, RDW Std Deviation 43.7, RDW Coeff of Kameron 14.1, Plt Count 190, MPV 10.5, Immature Gran % (Auto) 0.400, Neut % (Auto) 46.9 L, Lymph % (Auto) 43.1 H, [place] % (Auto) 6.2, Eos % (Auto) 3.0, Baso % (Auto) 0.4, Absolute Neuts (auto) 2.4, Absolute Lymphs (auto) 2.17, Nucleated RBC % 0 09/08/22 05:47: Sodium 141, Potassium 3.8, Chloride 112 H, Carbon Dioxide 24.0, Anion Gap 5, BUN 21 H, Creatinine 0.46 L, Estim Creat Clear Calc 163.43, Est GFR (MDRD) Af Amer 175, Est GFR (MDRD) Non-Af 144, BUN/Creatinine Ratio 45.3 H, Glucose 113 H, Calcium 8.3 L, Total Bilirubin 0.40, AST 18, ALT 30, Alkaline Phosphatase 67, Total Protein 5.6 L, Albumin 3.1 L, Globulin 2.5, Albumin/Globulin Ratio 1.2 09/08/22 06:32: POC Glucose 112 H Micro: Microbiology 09/07/22 14:59 Nasal Secretion SARS-CoV-2 Antigen (Rapid) - Final Cardiology Labs/Tests 09/07/22 13:15: WBC 5.3, RBC 5.08, Hgb 13.9, Hct 43.3, MCV 85.2, MCH 27.4, MCHC 32.1, Plt Count 207, MPV 10.3, Immature Gran % (Auto) 0.400, Neut % (Auto) 51.4, Lymph % (Auto) 39.4, [place] % (Auto) 5.5, Eos % (Auto) 2.7, Baso % (Auto) 0.6, Absolute Neuts (auto) 2.7, Nucleated RBC % 0 09/07/22 13:15: Sodium 141, Potassium 3.8, Chloride 112 H, Carbon Dioxide 24.0, Anion Gap 5, BUN 23 H, Creatinine 0.58, Est GFR (MDRD) Af Amer 134, Est GFR (MDRD) Non-Af 111, BUN/Creatinine Ratio 39.5 H, Glucose 140 H, Calcium 8.8 09/07/22 13:15: PT 13.1, INR 1.0, APTT 27.9 09/08/22 05:47: WBC 5.0, RBC 4.66, Hgb 12.6, Hct 39.8, MCV 85.4, MCH 27.0, MCHC 31.7 L, Plt Count 190, MPV 10.5, Immature Gran % (Auto) 0.400, Neut % (Auto) 46.9 L, Lymph % (Auto) 43.1 H, [place] % (Auto) 6.2, Eos % (Auto) 3.0, Baso % (Auto) 0.4, Absolute Neuts (auto) 2.4, Nucleated RBC % 0 09/08/22 05:47: Sodium 141, Potassium 3.8, Chloride 112 H, Carbon Dioxide 24.0, Anion Gap 5, BUN 21 H, Creatinine 0.46 L, Est GFR (MDRD) Af Amer 175, Est GFR (MDRD) Non-Af 144, BUN/Creatinine Ratio 45.3 H, Glucose 113 H, Calcium 8.3 L, Total Bilirubin 0.40 Rhythm: EKG: ECHO: Stress Test: Cardiac Cath: PCI: CT Surgery: Holter monitor: EPS: PPM: CXR: Chest CT Scan: Radiography Diagnostic Testing: Radiology Impression Chest X-Ray 09/07/22 13:50 IMPRESSION: Normal x-ray examination of the chest. Electronically Signed: Geovanny Kent MD at 14:12 EST , Physical Exam Const alert, oriented x3 and no apparent distress General Appearance: cooperative HEENT hearing grossly normal bilaterally Head and Scalp: atraumatic Eyes EOMs intact bilaterally Neck General: normal visual inspection Chest inspection of chest normal and palpation of chest normal Resp normal respiratory effort Auscultation: clear to auscultation bilaterally Cardio regular rate, regular rhythm, S1 normal heart sound and S2 normal heart sound Jugular Venous Distention: JVD GI normal to inspection, nondistended, normoactive bowel sounds Extremity normal capillary refill and no pedal edema Peripheral Pulses: Yes pulses 2+ throughout and femoral pulses present Skin no rashes or lesions noted Neuro oriented x3 and CN's II-XII intact bilaterally Psych Appearance: grossly normal and appropriate Assessment & Plan Assessment/Plan (1) Chest pain: PLAN: She presents with chest discomfort with some features which appear to be noncardiac. Her cardiac enzymes are abnormal in the range of an non-ST elevation myocardial infarction. Cardiac catheterization demonstrated normal coronary arteries and preserved ejection fraction. Would discharge for outpatient follow-up.
--- NOTE | 2022-09-08 10:30 | CASEMGMT ---
RN WM Face to Face with patient for initial transition planning/care coordination assessment. RN CM introduced self and role at [facility]. Patient lying in bed, alert and oriented. Patient willing to participate in assessment and is able to answer all questions appropriately. Care providers, pharmacy, and demographics verified. Patient wishes to discharge home, denies need for home health at this time. Patient states she has no further needs or concerns at this time. CM to follow for discharge planning needs that may arise. PCP: Yesica Villa Specialists: Ryan, global expansion sales director, Roshni Preferred Pharmacy: [facility] Insurance: selfpay Prescription Benefit: none Living Will/HPOA: none LNOK: Living Arrangements: Patient lives with in a first floor apartment with no steps to enter. Patient states she is independent at home. Transportation: aunt, public DME/HHC: Patient denies DME in the home. No previous HHC or SNF. Disposition Plan: Patient to discharge home with family support and follow-up plans in place. Myrna SNEED, RN, CM
[2022-09-08] MEDS: Loratadine 10 MG Tablet PO (10:32)
[2022-09-08] MEDS: Montelukast 10 MG Tablet PO (10:32)
[2022-09-08] MEDS: Ascorbic Acid 500 MG Tablet PO (10:32)
[2022-09-08] MEDS: FLU VACC QS2022-23(6MOS UP)/PF 60 MCG/0.5 ML SYRINGE IM (10:39)
[2022-09-08] MEDS: Famotidine 200 MG/20 ML MDV 20 MG in 0.9% Normal Saline (Pres. free 8 ML 300 MG IV (10:39)
--- NOTE | 2022-09-08 11:11 | DCINST_ITS ---
Discharge Instructions Diet Discharge Diet: Low fat / Low cholesterol Activity Discharge Activity: Return to Normal Activity Dressing / Incision Call your doctor if you observe: Fever of 101 or Higher, Shortness of breath, Dizziness, Fainting spells, Swelling in the ankles, Chest pain and Increased palpitations (irregular heartbeat) Follow Up Care Test Results: Test results from this visit will be discussed in further detail at your follow- up appointment, if applicable. Discharge Plan Admission Admit Date/Time: 09/07/22 15:09 Attending Provider: Karson Lagunas [facility] Providers: Jovani Dee ; Mary Lou Vazquez Discharge Orders/Prescriptions Prescriptions: Continued loratadine 10 mg tablet 10 mg PO DAILY@1700 lisinopril 10 MG tablet 10 mg PO DAILY montelukast 10 MG tablet 10 mg PO DAILY@1700 ergocalciferol (vitamin D2) 1,250 mcg (50,000 unit) capsule 1 cap PO FR Label Comments: TAKE 1 CAPSULE EVERY WEEK lovastatin 20 MG tablet extended release 24 hr 20 mg PO QHS omeprazole 40 mg capsule,delayed release(DR/EC) 40 mg PO DAILY Label Comments: Take 1 by mouth every day ascorbic acid (vitamin C) [Vitamin C] 500 mg Tablet 500 mg PO DAILY [facility] - Within 1 Week Disposition Disposition (needs filled in before D/C Order can be placed): Home, Self Care
[2022-09-08 11:25] LABS: Bedside Glucose 80 mg/dL (74-106)
--- NOTE | 2022-09-08 11:28 | CASEMGMT ---
SW reviewed patient's chart as she is self pay. SW met with patient, introduced self and role at [facility]. Patient goes to [facility]. Patient is able to afford her medications. Patient has applied for Medicaid in the past, but she and her make too much money. Patient did not need any resources. Nikole Lindsay MSW JIM
--- NOTE | 2022-09-08 13:07 | PCM.DC.SUM ---
Providers Date of Admission: 09/07/22 Primary Care Physician: [facility] Consultations 09/07/22 16:15 Consult: Cardiology Routine Consulting Provider: Jovani Dee Reason for Consult: NSTEMI EMERGENT Consult: No MD Notified: Yes Date Notified: 09/07/22 Time Notified: 16:18 Method of Notification: Text Reason For Visit: NSTEMI Diagnosis Discharge Diagnosis (1) Chest pain: Status: Acute Code(s): R07.9 - Chest pain, unspecified Plan 1. Acute non-STEMI/HTN/HLD ? EKG with new right bundle branch block, troponins are stable at around 120 ? Appreciate cardiology's input ? Plan for heart cath today ? Continue with as aspirin and statin ? Continue with her blood pressure med 2. GERD ? Stable ? Continue with PPI DVT: Lovenox Medications at Discharge Home Medications ergocalciferol (vitamin D2) 1,250 mcg (50,000 unit) capsule 1 cap PO FR SUPPLEMENT 01/21/20 lisinopril 10 mg tablet 10 mg PO DAILY blood pressure 01/21/20 lovastatin 20 mg tablet,extended release 24 hr 20 mg PO QHS cholesterol 01/21/20 montelukast 10 mg tablet 10 mg PO DAILY@1700 ALLERGIES 01/21/20 loratadine 10 mg tablet 10 mg PO DAILY@1700 ALLERGIES 06/22/20 ascorbic acid (vitamin C) 500 mg tablet (Vitamin C) 500 mg PO DAILY vitamin 09/07/22 omeprazole 40 mg capsule,delayed release 40 mg PO DAILY GERD 09/07/22 Hospital Course Operations None Procedures Cardiac catheterization Summary of Care Provided Minutes Spent on Discharge: 40 Hospital Course: Per HPI: BOBBY SHERIDAN, is a 62 F who presents with the above. Patient has past medical history of hypertension, hyperlipidemia, GERD who started having nausea and vomiting a day prior to admission. This was associated with chest pain that came on and off.? She denied any diaphoresis, palpitations but admits to dizziness.? She denied eating any new food, sick contacts, fever or chills.? She has not had any nausea or vomiting today because she had no eating. Patient describes the chest pain as sharp, substernal, comes on and off, lasts about an hour, not related to activity. Vitals in the? ED showed BP of 132/78, heart rate 87, RR 16, temperature 98F, oxygen sat 98% on room air. CBCD and CMP is unremarkable.? Troponins are 121-->118. EKG shows new RBBB.? Chest x-ray is unremarkable. Hospital Course: 1. Acute non-STEMI/HTN/HLD?62-year-old female presented to the hospital with nausea and vomiting followed by chest pain.?Given her elevated troponin cardiology was consulted and recommended a heart cath. The heart cath was done today and the coronary arteries were completely clean. They recommended discharge home with no changes in her medications. Her chest pain has resolved today. It does appear that this is likely from her vomiting and since this is also resolved I discussed with her the plan for discharge today she expressed understanding of the risk benefits of going home and would like to go home today. I do recommend she follow-up with her PCP in 3 to 5 days. She was discharged sooner than anticipated as her heart cath was negative and her symptoms had resolved despite the elevated troponin. 2. GERD is a chronic medical condition which complicates her care. Her home medications were continued where appropriate Weight / BMI Weight Weight: 182 lb 5.156 oz Body Mass Index (BMI) 39.2 ABG / Lab / Microbiology Data Result Diagrams: 09/08/22 05:47 09/08/22 05:47 Laboratory: Laboratory Results - last 24 hr 09/07/22 13:15: WBC 5.3, RBC 5.08, Hgb 13.9, Hct 43.3, MCV 85.2, MCH 27.4, MCHC 32.1, RDW Std Deviation 42.9, RDW Coeff of Kameron 13.8, Plt Count 207, MPV 10.3, Immature Gran % (Auto) 0.400, Neut % (Auto) 51.4, Lymph % (Auto) 39.4, [place] % (Auto) 5.5, Eos % (Auto) 2.7, Baso % (Auto) 0.6, Absolute Neuts (auto) 2.7, Absolute Lymphs (auto) 2.07, Nucleated RBC % 0 09/07/22 13:15: Sodium 141, Potassium 3.8, Chloride 112 H, Carbon Dioxide 24.0, Anion Gap 5, BUN 23 H, Creatinine 0.58, Estim Creat Clear Calc 127.25, Est GFR (MDRD) Af Amer 134, Est GFR (MDRD) Non-Af 111, BUN/Creatinine Ratio 39.5 H, Glucose 140 H, Calcium 8.8, Troponin I High Sens 121 H* 09/07/22 13:15: PT 13.1, INR 1.0, APTT 27.9 09/07/22 15:06: Troponin I High Sens 118 H 09/07/22 19:18: Troponin I High Sens 120 H 09/07/22 22:05: POC Glucose 120 H 09/08/22 05:47: WBC 5.0, RBC 4.66, Hgb 12.6, Hct 39.8, MCV 85.4, MCH 27.0, MCHC 31.7 L, RDW Std Deviation 43.7, RDW Coeff of Kameron 14.1, Plt Count 190, MPV 10.5, Immature Gran % (Auto) 0.400, Neut % (Auto) 46.9 L, Lymph % (Auto) 43.1 H, [place] % (Auto) 6.2, Eos % (Auto) 3.0, Baso % (Auto) 0.4, Absolute Neuts (auto) 2.4, Absolute Lymphs (auto) 2.17, Nucleated RBC % 0 09/08/22 05:47: Sodium 141, Potassium 3.8, Chloride 112 H, Carbon Dioxide 24.0, Anion Gap 5, BUN 21 H, Creatinine 0.46 L, Estim Creat Clear Calc 163.43, Est GFR (MDRD) Af Amer 175, Est GFR (MDRD) Non-Af 144, BUN/Creatinine Ratio 45.3 H, Glucose 113 H, Calcium 8.3 L, Total Bilirubin 0.40, AST 18, ALT 30, Alkaline Phosphatase 67, Total Protein 5.6 L, Albumin 3.1 L, Globulin 2.5, Albumin/Globulin Ratio 1.2 09/08/22 06:32: POC Glucose 112 H 09/08/22 10:59: POC Glucose 80 Microbiology: Microbiology 09/07/22 14:59 Nasal Secretion SARS-CoV-2 Antigen (Rapid) - Final Radiography Diagnostic Testing: Radiology Impression Chest X-Ray 09/07/22 13:50 IMPRESSION: Normal x-ray examination of the chest. Electronically Signed: Geovanny Kent MD at 14:12 EST , D/C Instructions Discharge Diet: Low fat / Low cholesterol Call your doctor if you observe: Fever of 101 or Higher, Shortness of breath, Dizziness, Fainting spells, Swelling in the ankles, Chest pain and Increased palpitations (irregular heartbeat) Meaningful Use Info Meaningful Use Diagnoses (Choose all that apply): None applicable Discharge Plan Admission Admit Date/Time: 09/07/22 15:09 Attending Provider: Karson Lagunas [facility] Providers: Jovani Dee ; Mary Lou Vazquez Discharge Orders/Prescriptions Prescriptions: Continued loratadine 10 mg tablet 10 mg PO DAILY@1700 lisinopril 10 MG tablet 10 mg PO DAILY montelukast 10 MG tablet 10 mg PO DAILY@1700 ergocalciferol (vitamin D2) 1,250 mcg (50,000 unit) capsule 1 cap PO FR Label Comments: TAKE 1 CAPSULE EVERY WEEK lovastatin 20 MG tablet extended release 24 hr 20 mg PO QHS omeprazole 40 mg capsule,delayed release(DR/EC) 40 mg PO DAILY Label Comments: Take 1 by mouth every day ascorbic acid (vitamin C) [Vitamin C] 500 mg Tablet 500 mg PO DAILY [facility] - Within 1 Week Disposition Disposition (needs filled in before D/C Order can be placed): Home, Self Care Charges/Coding Visit Charges Inpatient E&M: [id number] Disch Hosp
== END 2022-09-08 15:42 | disposition home or self-care (01) | DRG 287 ==
LOC: ED 15:15 → PCU 15:39
PROVIDERS: Admitting Provider Internal Medicine; Emergency Provider Emergency Medicine; Visit Provider Family Medicine
DX: R07.9 Chest pain, unspecified (principal); E11.9 Type 2 diabetes mellitus without complications; J44.9 Chronic obstructive pulmonary disease, unspecified; E78.5 Hyperlipidemia, unspecified; I45.10 Unspecified right bundle-branch block; I10 Essential (primary) hypertension; R19.7 Diarrhea, unspecified; K21.9 Gastro-esophageal reflux disease without esophagitis; R11.2 Nausea with vomiting, unspecified; Z23 Encounter for immunization; Z20.822 Contact with and (suspected) exposure to COVID-19; Z28.310 Unvaccinated for COVID-19; Z87.891 Personal history of nicotine dependence
CPT/HCPCS: 36415; 71045; 80048; 80053; 82962; 84484; 85025; 85610; 85730; 87811; 93005; 93458; 99152; 99153; 99251; 99283; 99406; J7030; 90686; A4216; C1769; C1894; G0463; J3490; Q9967

== ENCOUNTER 2023-01-20 12:22 | Observation (INO) | payer SELFPAY ==
[2023-01-20 12:22] VITALS: BP 126/83; PULSE 86; RESP 16; TEMP 36; O2SAT 93; BMI 43.0
--- NOTE | 2023-01-20 12:34 | EX.ED.DYSGE1 ---
HPI History of Present Illness Chief Complaint: Dizziness Narrative Narrative: 62-year-old female here with dizziness. She also endorses chest pain. States has been feeling numbness all over. This started yesterday. Patient states this has been ongoing, constant and severe. There are no alleviating or exacerbating features. Patient further states there is no associated nausea, shortness of breath. The patient denies recent surgery in the last 4 weeks or immobilization in the last 3 days, denies previous diagnosis of DVT or PE, hemoptysis, unilateral leg swelling or malignancy with treatment the last 6 months. No estrogen use noted. She denies any palpitations. Denies any bleeding diathesis. Denies any vomiting or diarrhea. Patient denies sudden onset of pain, no tearing sensation, no migratory symptoms, weakness or loss of sensation. Patient denies family history or personal history of Marfan syndrome or Brady-Danlos [facility] Medical History (Updated 01/20/23 @ 15:[address] Michael Sanchez MD) COPD (chronic obstructive pulmonary disease) Diabetes GERD (gastroesophageal reflux disease) Hypertension Migraines Home Medications ergocalciferol (vitamin D2) 1,250 mcg (50,000 unit) capsule 1 cap PO FR SUPPLEMENT 01/21/20 [History Last Taken 09/02/22] lisinopril 10 mg tablet 10 mg PO DAILY blood pressure 01/21/20 [History Last Taken 09/06/22] lovastatin 20 mg tablet,extended release 24 hr 20 mg PO QHS cholesterol 01/21/20 [History Last Taken 09/06/22] montelukast 10 mg tablet 10 mg PO DAILY@1700 ALLERGIES 01/21/20 [History Last Taken 09/06/22 17:00] loratadine 10 mg tablet 10 mg PO DAILY@1700 ALLERGIES 06/22/20 [History Last Taken 09/06/22 17:00] ascorbic acid (vitamin C) 500 mg tablet (Vitamin C) 500 mg PO DAILY vitamin 09/07/22 [History Last Taken 09/06/22] omeprazole 40 mg capsule,delayed release 40 mg PO DAILY GERD 09/07/22 [History Last Taken 09/07/22] cyclobenzaprine 5 mg tablet 5 mg PO QHS pain 01/20/23 [History Last Taken 01/19/23] naproxen 500 mg tablet 500 mg PO BID pain 01/20/23 [History Last Taken 01/19/23] Allergy/AdvReac Type Severity Reaction Status Date / Time aspirin Allergy Vomiting Verified 01/20/23 12:25 Surgical History (Updated 01/20/23 @ 16:05 by Cheryl Tovar) H/O shoulder surgery H/O: hysterectomy History of mandibular surgery Social History Smoking Status: Former smoker alcohol intake: former substance use type: does not use ROS ROS ED ROS Narrative Constitutional: Denies fever HEENT: Denies sore throat Neck: Denies neck pain Cardiovascular: Endorses chest pain Respiratory: Denies shortness of breath GI: Denies nausea vomiting or abdominal pain : Denies changes in urinary habits Musculoskeletal: Denies muscle or joint pain Neurologic: Denies numbness weakness, endorses numbness, dizziness Skin denies rash EXAM Physical Exam Narrative Exam Narrative: Nursing triage notes reviewed, Vital signs reviewed Constitutional: please see mdm HENT: MMM Eyes: Pupils equal round and reactive to light, Extraocular muscles intact Neck: No stridor, no JVD, full neck ROM Lungs: Clear to auscultation, No wheezing or rales. No increased work of breathing, no conversational dyspnea, no accessory muscle use, no nasal flaring. No respiratory distress noted Heart: Regular rate and rhythm, No murmurs, No rubs and No gallops, 2+ distal pulses (radial, femoral, posterior tibial) in all extremities Abdomen: Soft, there is no tenderness, rigidity, rebound or guarding, no obvious peritoneal signs, no palpable pulsatile abdominal masses, no auscultated abdominal bruit : No CVAT Extremities: No edema Neuro: Alert and oriented x3, neuro exam at baseline, cranial nerves II through XII are intact. No pain with extraocular muscle movement. There is negative test of skew. Normal speech. 5 of 5 strength in upper and lower extremities in flexion extension. Intact sensation to light touch in upper and lower extremity dermatomes. No truncal or extremity ataxia. No dysdiadochokinesia. Normal gait. 2+ reflexes. No meningeal signs. Negative Babinski. NIH of 0 Skin: No rash or lesions noted Const Vital Signs: 01/20/23 12:22 01/20/23 13:02 01/20/23 14:47 Temperature 96.8 F L Temperature Source Temporal Pulse Rate 86 Respiratory Rate 16 Respiratory Effort Normal Non-Labored Respiratory Pattern Normal Blood Pressure 126/83 H 120/100 H Blood Pressure Mean 97 106 Pulse Ox 93 Oxygen Delivery Method Room Air MDM MDM MDM Narrative Medical decision making narrative: Chief Complaint: Dizziness External records reviewed: No recent advanced imaging of the brain MDM: The patient was hemodynamically stable, afebrile, nontoxic-appearing I considered the following differential diagnosis: Posterior circulation CVA, dehydration, electrolyte abnormalities, arrhythmia, anemia, myocardial ischemia I obtained a broad lab and imaging work-up to further elucidate etiology patient complaints. Labs with evidence of myocardial ischemia, EKG without evidence of STEMI. Remainder of labs showed no evidence of severe anemia, electrolyte abnormalities, hepatobiliary pathology, no evidence of UTI. Chest x-ray without evidence of pneumonia, pneumothorax. CT scan of the brain was negative. Given the patient advanced age, evidence of NSTEMI, Heart score of 5, she will need observation for serial cardiac biomarkers, telemetry monitoring, serial EKGs and possible provocative testing. Will discuss with the internal medicine physician. Factors affecting care: History of hypertension, hyperlipidemia Social determinants of health: Former smoker History obtained from others: Shared decision making: I will have a discussion with the patient and or visitors regarding risk/benefits of further testing or admission. They will be made aware of of the risk/benefits inherent in this decision they will be given the opportunity to voice understanding. Consults: Internal Medicine Lab Data Attestation: I reviewed the patient's lab results. Lab results narrative: CBC without leukocytosis, severe anemia, no thrombocytopenia. EKG with normal sinus rhythm, normal axis, prolonged QT, baseline anterior T wave inversions noted, right bundle branch block noted similar to prior EKG on September 2022, no ischemic changes, no injury pattern BMP without evidence of significant electrolyte abnormalities, no anion gap, no acute kidney injury. LFTs show no evidence of hepatobiliary pathology. Initial troponin elevated concerning for myocardial ischemia Urinalysis without evidence of infection Labs: Laboratory Results - last 24 hr 01/20/23 01/20/23 01/20/23 12:35 12:35 13:59 WBC 6.9 RBC 5.32 Hgb 14.7 Hct 45.3 MCV 85.2 MCH 27.6 MCHC 32.5 RDW Std Deviation 43.4 RDW Coeff of Kameron 14.0 Plt Count 208 MPV 10.4 Immature Gran % (Auto) 0.100 Neut % (Auto) 60.1 Lymph % (Auto) 31.1 [place] % (Auto) 5.7 Eos % (Auto) 2.3 Baso % (Auto) 0.7 Absolute Neuts (auto) 4.1 Absolute Lymphs (auto) 2.13 Nucleated RBC % 0 Sodium 139 Potassium 4.0 Chloride 109 H Carbon Dioxide 27.0 Anion Gap 3 L BUN 20 H Creatinine 0.57 Estim Creat Clear Calc 138.89 Est GFR (MDRD) Af Amer 137 Est GFR (MDRD) Non-Af 113 BUN/Creatinine Ratio 34.9 H Glucose 132 H Calcium 8.9 Phosphorus Magnesium Total Bilirubin 0.50 AST 22 ALT 37 Alkaline Phosphatase 106 Troponin I High Sens 128 H* Total Protein 6.6 Albumin 3.8 Globulin 2.8 Albumin/Globulin Ratio 1.4 Urine Color Yellow Urine Clarity Clear Urine pH 7.0 Ur Specific [place] 1.015 Urine Protein Negative Urine Glucose (UA) Normal Urine Ketones Negative Urine Occult Blood Negative Urine Nitrite Negative Urine Bilirubin Negative Urine Urobilinogen Normal Ur Leukocyte Esterase 100 H Urine RBC 0 SEEN Urine WBC 0-5 SEEN Ur Squamous Epith Cells 0 SEEN Urine Bacteria 0 SEEN Urine Mucus 0 SEEN 01/20/23 01/20/23 14:47 14:47 WBC RBC Hgb Hct MCV MCH MCHC RDW Std Deviation RDW Coeff of Kameron Plt Count MPV Immature Gran % (Auto) Neut % (Auto) Lymph % (Auto) [place] % (Auto) Eos % (Auto) Baso % (Auto) Absolute Neuts (auto) Absolute Lymphs (auto) Nucleated RBC % Sodium Potassium Chloride Carbon Dioxide Anion Gap BUN Creatinine Estim Creat Clear Calc Est GFR (MDRD) Af Amer Est GFR (MDRD) Non-Af BUN/Creatinine Ratio Glucose Calcium Phosphorus 3.2 Magnesium 2.1 Total Bilirubin AST ALT Alkaline Phosphatase Troponin I High Sens 118 H Total Protein Albumin Globulin Albumin/Globulin Ratio Urine Color Urine Clarity Urine pH Ur Specific [place] Urine Protein Urine Glucose (UA) Urine Ketones Urine Occult Blood Urine Nitrite Urine Bilirubin Urine Urobilinogen Ur Leukocyte Esterase Urine RBC Urine WBC Ur Squamous Epith Cells Urine Bacteria Urine Mucus Radiography Chest X-Ray - ED: Read by ED Physician Diagnostic Testing: Clinical Impression(s) from Imaging Studies Brain CT 01/20/23 13:02 IMPRESSION: Normal unenhanced CT scan of the brain. Electronically Signed: Geovanny Kent MD at 13:44 EDT , Chest X-Ray 01/20/23 14:10 IMPRESSION: Normal x-ray examination of the chest. Electronically Signed: Geovanny Kent MD at 14:48 EDT , I have personally reviewed the patient's chest x-ray. Chest x-ray is unremarkable for pulmonary edema, pneumothorax, pneumonia or focal cardiopulmonary abnormality. Discharge Plan Dx/Rx/DC Orders Clinical Impression: Non-ST elevation VA (NSTEMI), Dizziness Disposition Disposition: Acute Care Hospital [facility] Discharge Date/Time: 01/20/23 15:40
--- NOTE | 2023-01-20 12:53 | ED.RN ---
SHAYAN FROM RESPIRATORY NOTIFIED OF NEED FOR EKG AT THIS TIME.
--- NOTE | 2023-01-20 13:02 | CT_ITS ---
STUDY: CT BRAIN WITHOUT CONTRAST REASON FOR EXAM: Female, 62 years old. Dizziness RADIATION DOSAGE (If Supplied By Facility): CTDIvol = ( 44.99 ) mGy, DLP = ( 745.49 ) mGycm TECHNIQUE: Transaxial CT imaging of the brain was performed without administration of intravenous contrast material. Individualized dose optimization techniques were used for this CT. COMPARISON: No relevant priors. FINDINGS: Normal soft tissue structures. There is hyperostosis frontalis internus. Normal size ventricles and extra-axial spaces for the patient''s age. Normal white matter tracts of the cerebral hemispheres. Normal basal ganglia and thalami. Normal brainstem. Normal cerebellum. There is no intracranial hemorrhage. There are no findings of an acute ischemic infarction. Normal visualized paranasal sinuses. CT/Brain/Head without Contrast IMPRESSION: Normal unenhanced CT scan of the brain. Electronically Signed: Geovanny Kent MD at 13:44 EDT ,
[2023-01-20 13:11] LABS: Absolute Lymphocyte Count 2.13 X10^3/uL (0.83-4.51); Absolute Neutrophil Count 4.1 X10^3/uL (2.0-7.7); Basophil# 0.05 X10^3/uL; Basophil% 0.7 % (0-1); Eosinophil# 0.16 X10^3/uL; Eosinophils% 2.3 % (0-5); Hematocrit 45.3 % (37-47); Hemoglobin 14.7 g/dL (12.0-15.0); Lymphocyte # 2.13 X10^3/ul (0.83-4.51); Lymphocyte % 31.1 % (19-41); Mean Corp Hgb Conc 32.5 g/dL (32-36); Mean Corpuscular Hgb 27.6 pg (27.0-32.0); Mean Corpuscular Volume 85.2 fL (81-99); Mean Platelet Vol. 10.4 fl (6.2-12.0); Monocyte# 0.39 X10^3/uL; Monocyte% 5.7 % (0-10); NRBC Flagged by Analyzer 0 % (0-5); Neutrophil # 4.11 X10^3/uL (2.7-7.7); Neutrophil % 60.1 % (47-70); Platelet Count 208 K/mm3 (150-450); RBC Distribution Width SD 43.4 fl (35.1-43.9); Red Blood Count 5.32 M/mm3 (4.2-5.4); White Blood Count 6.9 K/mm3 (4.4-11.0)
[2023-01-20 13:35] LABS: ALB/GLOB Ratio 1.4 RATIO (0.9-2.4); AST(SGOT) 22 U/L (15-37); Alanine Aminotransfer ALT/SGPT 37 U/L (13-56); Albumin, Serum 3.8 g/dL (3.2-5.0); Alkaline Phosphatase 106 U/L (45-117); Anion Gap 3 (5-15); BUN 20 mg/dL (7-18); BUN/Creat Ratio 34.9 RATIO (10-20); Calcium,Total 8.9 mg/dL (8.5-10.1); Chloride 109 mmol/L (98-107); Creatinine, Serum 0.57 mg/dL (0.55-1.02); EST Glomerular Filtration Rate 113 mL/min (>60); Est Glom Filt Rate - Afr Amer 137 mL/min (>60); Estimated Creatinine Clearance 138.89 ml/min; Globulin 2.8 g/dL (2.2-4.2); Glucose 132 mg/dL (74-106); Protein, Total 6.6 g/dL (6.4-8.2); Sodium Level 139 mmol/L (136-145); Troponin-I HS 128 pg/mL (3.0-54.0)
--- NOTE | 2023-01-20 13:52 | EKG12_ITS ---
Test Reason : Blood Pressure : / mmHG Vent. Rate : 082 BPM Atrial Rate : 082 BPM P-R Int : 176 ms QRS Dur : 142 ms QT Int : 440 ms P-R-T Axes : 046 048 046 degrees QTc Int : 514 ms Sinus rhythm with occasional Premature ventricular complexes Right bundle branch block Possible Inferior infarct , age undetermined Abnormal ECG When compared with ECG of 08-SEP-2022 04:47, Premature ventricular complexes are now Present Borderline criteria for Inferior infarct are now Present Confirmed by ISMAEL COREY, RIVERA ([id number]), medical transcription editor ALEXIS ROSS ([id number]) on 01/24/2023 10:46:48 AM Referred By: RIKA Confirmed By:RIVERA GUEVARA MD
[2023-01-20 14:04] LABS: Bacteria 0 SEEN /hpf (None Seen); Mucous, Urine 0 SEEN /hpf (<or=2+); Red Blood Cells-Urine 0 SEEN /hpf (0-5); Squamous Epithelial Cells - UA 0 SEEN /hpf (5-10)
[2023-01-20 14:07] LABS: Color, Urine Yellow (Yellow); Glucose, Dipstick Normal (Normal); Ketone-Dipstick Negative (Negative); Leukocyte Esterase-Dipstick 100 /ul (Negative); Nitrite-Dipstick Negative (Negative); Occult Blood-Urine Negative /ul (Negative); Protein-Dipstick Negative (Negative); Specific Gravity, Urine 1.015 (1.002-1.030); Urine Bilirubin Dipstick Negative (Negative); Urine Clarity Clear (Clear); Urine Urobilinogen Normal (Normal)
--- NOTE | 2023-01-20 14:10 | RAD_ITS ---
STUDY: X-RAY CHEST REASON FOR EXAM: Female, 62 years old. Chest pain, elevated troponin TECHNIQUE: Single AP portable view of the chest. COMPARISON: Comparison is made with prior study dated September 07, 2022. FINDINGS: EKG electrodes are seen. The lungs are clear and expanded. There is no demonstrated pleural abnormality. Normal size heart. Normal mediastinum and seema. Normal visualized pulmonary arteries. Normal visualized aortic arch and descending thoracic aorta. There are degenerative changes of the visualized thoracic spine. Normal visualized ribs, clavicles, and shoulders. There is no demonstrated abnormality of the visualized soft tissue structures of the upper abdomen. RAD/Chest 1 View (Portable) IMPRESSION: Normal x-ray examination of the chest. Electronically Signed: Geovanny Kent MD at 14:48 EDT ,
[2023-01-20 14:13] LABS: White Blood Cells 0-5 SEEN /hpf (0-5)
[2023-01-20 14:47] VITALS: BP 120/100
--- NOTE | 2023-01-20 15:02 | HP.PCM.HOS_ITS ---
[facility] - General General Date of Admission: 01/20/23 Date of Service: 01/20/23 Chief Complaint: Dizziness started in the morning today. Had atypical chest pain, on and off HPI Narrative BOBBY SHERIDAN, is a 62 F who came to ED for dizziness. Dizziness started in the morning. She also feel whole body now that is started yesterday. It is nonfocal without associated with weakness, dysarthria or dysphagia or vision change. Her dizziness is also chronic problem on and off when she stands up suddenly or banged her head associated with mild blurry vision. She also said she had chest pain on both lower chest but predominantly left inframammary region, nonradiating, localized that lasted for 10 to 15 minutes. She had 2 episodes 1 yesterday night and 1 in the morning today. She has history of COPD and uses scheduled inhalers but denies any change in severity or characteristic of shortness of breath associated with chest pain. Social history: Started smoking in teenage, pack per day quit 22 years ago. About 25 pack years of smoking. Denies substance use. Family history: Her brother has congenital cardiac abnormality with whole and had repair. Denies NM/CAD in her mother or other siblings. Does not know medical history of her father. Vital done in the ED is normal range. Patient is comfortable. 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 Rate 82 bpm, QTc 514 ms, QRS [address]-T changes. No significant change from previous EKG of September 2022. Troponins mildly elevated. [facility] Medical History COPD (chronic obstructive pulmonary disease) Diabetes GERD (gastroesophageal reflux disease) Hypertension Migraines Home Medications ergocalciferol (vitamin D2) 1,250 mcg (50,000 unit) capsule 1 cap PO FR SUPP LEMENT 01/21/20 [History Last Taken 09/02/22] lisinopril 10 mg tablet 10 mg PO DAILY blood pressure 01/21/20 [History Last Taken 09/06/22] lovastatin 20 mg tablet,extended release 24 hr 20 mg PO QHS cholesterol 01/21/20 [History Last Taken 09/06/22] montelukast 10 mg tablet 10 mg PO DAILY@1700 ALLERGIES 04/21/20 [History Last Taken 09/06/22 17:00] loratadine 10 mg tablet 10 mg PO DAILY@1700 ALLERGIES 06/22/20 [History Last Taken 09/06/22 17:00] ascorbic acid (vitamin C) 500 mg tablet (Vitamin C) 500 mg PO DAILY vitamin 09/07/22 [History Last Taken 09/06/22] omeprazole 40 mg capsule,delayed release 40 mg PO DAILY GERD 09/07/22 [History Last Taken 09/07/22] Allergy/AdvReac Type Severity Reaction Status Date / Time aspirin Allergy Vomiting Verified 01/20/23 12:25 Surgical History H/O knee surgery H/O: hysterectomy Social History Smoking Status: Former smoker alcohol intake: former substance use type: does not use ROS ROS Narrative Constitutional: Reports chronic fatigue and weakness. No acute fever or URI or flulike symptoms. HEENT: Reports systems reviewed and no addt'l complaints, except as documented Respiratory/Chest: As described in HPI. History of COPD. Chronic wheezing. CVS: No peripheral arterial disease. Rest as described in HPI Gastrointestinal: Denies coffee ground emesis, hematemesis or vomiting Genitourinary: Denies burning urination or new urinary tract symptoms Musculoskeletal: Reports chronic joint pain and limited range of motion Neurologic: Denies seizure-like activity. No history of stroke skin: No ulcer. No rash Endocrinology: Reports systems reviewed and no addt'l complaints, except as documented Hematologic/Lymphatic: Reports systems reviewed and no addt'l complaints, except as documented Rest 14 ROS are negative except as mentioned in HPI Vital Signs Vital Signs Vital Signs: 01/20/23 12:22 01/20/23 13:02 Temperature 96.8 F L Temperature Source Temporal Pulse Rate 86 Respiratory Rate 16 Respiratory Effort Normal Non-Labored Respiratory Pattern Normal Blood Pressure 126/83 H Blood Pressure Mean 97 Pulse Ox 93 Oxygen Delivery Method Room Air Weight Weight: 192 lb Body Mass Index (BMI) 43.0 Physical Exam Narrative General: Alert, Oriented x3, Cooperative HEENT: Atraumatic, PERRLA, EOMI, Normocephalic Oral: Oral mucosa moist. No Gingival or Mucosal Lesions/ Ulcerations Neck: Supple, No JVD, Negative Carotid Bruits Lungs: Air entry diminished in bilateral lung bases. Bilateral expiratory rhonchi occasional. No tachypnea or hypoxia. Cardiovascular: Regular rate, Regular Rhythm, Normal S1, Normal S2, systolic murmur right second ICS. Abdomen: Bowel Sounds Present, Soft, Non Tender, Non-Distended : No renal angle tenderness. No suprapubic tenderness. Extremities: Mild 1+ nonpitting chronic edema, Capillary Refill Less than 3 Seconds Skin: No rashes, No breakdown Musculoskeletal: No Tenderness to Palpation of Joints or Extremities. ROM restricted. Muscle strength 4+/5 at knees and hip joints Neurological: Cranial nerves II-XII grossly intact, DTR 2+/4 and Symmetrical, gross sensation of touch and pressure symmetrical and equal on both sides. No acute focal deficit. Psych/Mental Status: Normal Affect, Appropriate. Results Lab / Micro Data Result Diagrams: 01/20/23 12:35 01/20/23 12:35 Labs: Laboratory Results - last 24 hr 01/20/23 12:35: WBC 6.9, RBC 5.32, Hgb 14.7, Hct 45.3, MCV 85.2, MCH 27.6, MCHC 32.5, RDW Std Deviation 43.4, RDW Coeff of Kamer[place] 14.0, Plt Count 208, MPV 10.4, Immature Gran % (Auto) 0.100, Neut % (Auto) 60.1, Lymph % (Auto) 31.1, [place] % (Auto) 5.7, Eos % (Auto) 2.3, Baso % (Auto) 0.7, Absolute Neuts (auto) 4.1, Absolute Lymphs (auto) 2.13, Nucleated RBC % 0 01/20/23 12:35: Sodium 139, Potassium 4.0, Chloride 109 H, Carbon Dioxide 27.0, Anion Gap 3 L, BUN 20 H, Creatinine 0.57, Estim Creat Clear Calc 138.89, Est GFR (MDRD) Af Amer 137, Est GFR (MDRD) Non-Af 113, BUN/Creatinine Ratio 34.9 H, Glucose 132 H, Calcium 8.9, Total Bilirubin 0.50, AST 22, ALT 37, Alkaline Phosphatase 106, Troponin I High Sens 128 H*, Total Protein 6.6, Albumin 3.8, Globulin 2.8, Albumin/Globulin Ratio 1.4 04/21/23 13:59: Urine Color Yellow, Urine Clarity Clear, Urine pH 7.0, Ur Specific [place] 1.015, Urine Protein Negative, Urine Glucose (UA) Normal, Urine Ketones Negative, Urine Occult Blood Negative, Urine Nitrite Negative, Urine Bilirubin Negative, Urine Urobilinogen Normal, Ur Leukocyte Esterase 100 H, Urine RBC 0 SEEN, Urine WBC 0-5 SEEN, Ur Squamous Epith Cells 0 SEEN, Urine B acteria 0 SEEN, Urine Mucus 0 SEEN Radiology Impression Brain CT 01/20/23 13:02 IMPRESSION: Normal unenhanced CT scan of the brain. Electronically Signed: Geovanny Kent MD at 13:44 EDT , Chest X-Ray 01/20/23 14:10 IMPRESSION: Normal x-ray examination of the chest. Electronically Signed: Geovanny Kent MD at 14:48 EDT , Assessment & Plan Assessment/Plan (1) Dizziness: (2) Chest pain, atypical: PLAN: Plan This is a 62-year-old female is being admitted for dizziness and atypical chest pain. 1. Atypical chest pain: Patient is being admitted in PCU. First troponin mildly elevated at 128-second 118. Downward trend. No acute change in EKG. MIAN risk score is 3. Patient was last admitted in September 2022 for similar symptoms of chest pain. At that time patient had elevated troponins and cardiac cath was done which was reported normal. I discussed with the ED physician and power electronics engineer. Third troponin ordered. Patient also had a stress test by outside power electronics engineer a year ago and was normal. Plan cycle third troponin. Str ess test not recommended as patient is physically deconditioned to walk on treadmill and Lexiscan may be relative contraindication for COPD and unnecessary in view of recent normal heart cath. 2D echo is ordered for systolic heart murmur. Repeat EKG. Patient on baby aspirin. 2. Acute on chronic intermittent dizziness nonspecific: Patient does not have vertigo. History and exam not supportive of focal neurological deficit. CT head was done which was reported normal. Symptomatic management. Orthostatic vitals. Patient not having nausea or vomiting are acutely sick. 3. Hypertension and dyslipidemia: Blood pressure is controlled. Continue home medication. Fasting profile tomorrow AM. 4. GERD: Chronic medical condition. Might be a reason for atypical chest pain. Continue PPI. Follow-up with GI as an outpatient for EGD. 5. Hyperglycemia: Patient might have prediabetes. A1c ordered for tomorrow AM. Living will/advanced directive/end of life care: Patient does not have living will or advanced directive. She does not endanger power of banking attorney for health. Next of kin is her . After discussion of benefits/risks procedures involved with full code, DNR CC arrest and DNR CC, the patient is not yet decided therefore full code. Patient does want artificial life support including intubation, tube feed, ventilator and/chest compression, central venous catheter, vasopressor and DC shock if needed Total time spent in [id number] encounter in discussion of advanced directive 17 minutes. Laboratory Results 01/20/23 12:35: WBC 6.9, RBC 5.32, Hgb 14.7, Hct 45.3, MCV 85.2, MCH 27.6, MCHC 32.5, RDW Std Deviation 43.4, RDW Coeff of Kamer[place] 14.0, Plt Count 208, MPV 10.4, Immature Gran % (Auto) 0.100, Neut % (Auto) 60.1, Lymph % (Auto) 31.1, [place] % (Auto) 5.7, Eos % (Auto) 2.3, Baso % (Auto) 0.7, Absolute Neuts (auto) 4.1, Absolute Lymphs (auto) 2.13, Nucleated RBC % 0 01/20/23 12:35: Sodium 139, Potassium 4.0, Chloride 109 H, Carbon Dioxide 27.0, Anion Gap 3 L, BUN 20 H, Creatinine 0.57, Estim Creat Clear Calc 138.89, Est GFR (MDRD) Af Amer 137, Est GFR (MDRD) Non-Af 113, BUN/Creatinine Ratio 34.9 H, Glucose 132 H, Calcium 8.9, Total Bilirubin 0.50, AST 22, ALT 37, Alkaline P hosphatase 106, Troponin I High Sens 128 H*, Total Protein 6.6, Albumin 3.8, Globulin 2.8, Albumin/Globulin Ratio 1.4 01/20/23 13:59: Urine Color Yellow, Urine Clarity Clear, Urine pH 7.0, Ur Specific [place] 1.015, Urine Protein Negative, Urine Glucose (UA) Normal, Urine Ketones Negative, Urine Occult Blood Negative, Urine Nitrite Negative, Urine Bilirubin Negative, Urine Urobilinogen Normal, Ur Leukocyte Esterase 100 H, Urine RBC 0 SEEN, Urine WBC 0-5 SEEN, Ur Squamous Epith Cells 0 SEEN, Urine Bacteria 0 SEEN, Urine Mucus 0 SEEN 01/20/23 14:47: Troponin I High Sens 118 H 01/20/23 14:47: Phosphorus Pending, Magnesium Pending Clinical Impression(s) from Imaging Studies Brain CT 01/20/23 13:02 IMPRESSION: Normal unenhanced CT scan of the brain. Chest X-Ray 01/20/23 14:10 IMPRESSION: Normal x-ray examination of the chest. Charges/Coding Visit Charges Inpatient E&M: 11409 Init Hosp L3 Procedures Hospitalists Procedures: 05778 Advncd Care Plan 30 Min
[2023-01-20 15:16] VITALS: BP 120/100; PULSE 80; RESP 18; TEMP 36.4; O2SAT 98
[2023-01-20 15:18] LABS: Troponin-I HS 118 pg/mL (3.0-54.0)
[2023-01-20] MEDS: Aspirin 325 MG Tablet PO (15:28)
[2023-01-20 15:38] LABS: Magnesium 2.1 mg/dL (1.6-2.6); Phosphorus 3.2 mg/dL (2.5-4.9)
[2023-01-20 15:53] VITALS: BMI 43.3
[2023-01-20 16:00] VITALS: BP 134/84; PULSE 75; RESP 22; TEMP 35.8; O2SAT 97; O2SAT 98
--- NOTE | 2023-01-20 16:03 | EKG12_ITS ---
Test Reason : CP ADMIT Blood Pressure : / mmHG Vent. Rate : 067 BPM Atrial Rate : 067 BPM P-R Int : 194 ms QRS Dur : 146 ms QT Int : 452 ms P-R-T Axes : 056 055 050 degrees QTc Int : 477 ms Normal sinus rhythm Right bundle branch block Possible Inferior infarct , age undetermined Abnormal ECG When compared with ECG of 20-JAN-2023 13:52, MANUAL COMPARISON REQUIRED, DATA IS UNCONFIRMED Confirmed by ISMAEL COREY, RIVERA ([id number]), videotape editor ALEXIS ROSS ([id number]) on 01/24/2023 10:30:38 AM Referred By: Confirmed By:RIVERA GUEVARA MD
--- NOTE | 2023-01-20 16:03 | ECHOCS_ITS ---
Reason For Study: Murmur Procedure This was a 2D Doppler, Color Flow transthoracic echocardiogram. The study was technically difficult. Contrast injection was performed. Exam performed portable in patient room. Left Ventricle Normal left ventricle. The estimated ejection fraction is 55-60 %. Right Ventricle Normal right ventricle. Normal systolic function. Atria Normal left atrium. Normal right atrium. Mitral Valve There is mild mitral annular calcification. Mild (1+) mitral valve insufficiency. Tricuspid Valve Normal tricuspid valve. Aortic Valve Normal aortic valve. Pulmonic Valve The pulmonic valve is not well visualized. Great Vessels Normal aortic root. Pericardium/Pleural No pericardial effusion. Medication Diluted definity 2ml given slow IV push to enhance endocardial definition. MMode/2D Measurements & Calculations LVIDd: 4.1 cm IVSd: 0.84 cm Ao root diam: 3.4 cm LVIDs: 3.1 cm LVPWd: 0.91 cm LA dimension: 3.1 cm FS: 25.6 % LAV(MOD-bp): 41.0 ml LA A4 area: 16.0 cm2 LAV(MOD-bp) Indexed: 23.1 ml/m2 LAV(MOD-sp2): 44.1 ml LAV(MOD-sp4): 37.8 ml Time Measurements MV dec time: 0.19 sec Doppler Measurements & Calculations MV E max thomas: 80.3 cm/sec Lat Peak E' Thomas: 9.4 cm/sec Med Peak E' Thomas: 7.3 cm/sec MV A max thomas: 85.7 cm/sec E/E' lat: 8.6 E/E' med: 11.1 MV E/A: 0.94 MV V2 max: 96.9 cm/sec MV P1/2t max thomas: 90.8 cm/sec Ao V2 max: 104.0 cm/sec MV max P.8 mmHg MV P1/2t: 64.4 msec Ao max P.3 mmHg MV V2 mean: 58.2 cm/sec MV dec slope: 413.2 cm/sec2 Ao V2 mean: 74.6 cm/sec MV mean P.5 mmHg Ao mean P.5 mmHg MV V2 VTI: 25.3 cm MVA(P1/2t): 3.4 cm2 Ao V2 VTI: 25.6 cm AV (velocity ratio): 0.73 LV V1 max: 82.1 cm/sec MR max thomas: 553.8 cm/sec PA V2 max: 73.9 cm/sec LV V1 max P.7 mmHg MR max P.7 mmHg LV V1 mean P.6 mmHg MR mean thomas: 430.8 cm/sec LV V1 mean: 61.6 cm/sec MR mean P.2 mmHg LV V1 VTI: 18.6 cm MR VTI: 213.4 cm TR max thomas: 257.1 cm/sec TR max P.4 mmHg ECHO/Echo Complete W/ Contrast Interpretation Summary The estimated ejection fraction is 55-60 %. Mild MR Ordering Physician: Michael Sanchez Performed By: Nito Kirkpatrick RCS
[2023-01-20] MEDS: Enoxaparin 40 MG/0.4 ML Syringe SC (18:39)
[2023-01-20] MEDS: Montelukast 10 MG Tablet PO (18:40)
[2023-01-20] MEDS: Ergocalciferol 1.25 MG (50, 000 UNIT) Capsule PO (18:40)
[2023-01-20] MEDS: Lactated Ringers 1,000 ML 100 ML IV (18:54)
[2023-01-20 19:33] VITALS: BP 127/76; PULSE 75; RESP 18; TEMP 36.4; O2SAT 95
[2023-01-20 21:22] LABS: Troponin-I HS 124 pg/mL (3.0-54.0)
[2023-01-20] MEDS: Atorvastatin Calcium 10 MG Tablet PO (21:36)
[2023-01-20 21:40] VITALS: BP 125/69; PULSE 74; RESP 16; TEMP 36.6; O2SAT 97
[2023-01-20] MEDS: Acetaminophen 325 MG Tablet 650 MG PO (21:42)
[2023-01-20] MEDS: Pantoprazole Sodium 40 MG Tablet PO (21:46)
[2023-01-21 03:55] VITALS: BP 134/88; PULSE 83; RESP 18; TEMP 36.7; O2SAT 95
[2023-01-21 06:00] VITALS: BMI 43.4
[2023-01-21] MEDS: 0.9% Saline Lock 10 ML Syringe IV (06:02)
[2023-01-21] MEDS: Acetaminophen 325 MG Tablet 650 MG PO (06:09)
[2023-01-21 06:19] LABS: Absolute Lymphocyte Count 2.18 X10^3/uL (0.83-4.51); Absolute Neutrophil Count 2.1 X10^3/uL (2.0-7.7); Basophil# 0.04 X10^3/uL; Basophil% 0.8 % (0-1); Eosinophil# 0.22 X10^3/uL; Eosinophils% 4.5 % (0-5); Hematocrit 40.2 % (37-47); Hemoglobin 12.8 g/dL (12.0-15.0); Lymphocyte # 2.18 X10^3/ul (0.83-4.51); Mean Corp Hgb Conc 31.8 g/dL (32-36); Mean Corpuscular Hgb 27.3 pg (27.0-32.0); Mean Corpuscular Volume 85.7 fL (81-99); Mean Platelet Vol. 10.6 fl (6.2-12.0); Monocyte% 6.2 % (0-10); NRBC Flagged by Analyzer 0 % (0-5); Neutrophil # 2.09 X10^3/uL (2.7-7.7); Neutrophil % 43.3 % (47-70); Platelet Count 185 K/mm3 (150-450); RBC Distribution Width CV 14.1 % (11.6-14.6); RBC Distribution Width SD 43.7 fl (35.1-43.9); Red Blood Count 4.69 M/mm3 (4.2-5.4); White Blood Count 4.8 K/mm3 (4.4-11.0)
[2023-01-21 07:03] LABS: Anion Gap 4 (5-15); BUN 19 mg/dL (7-18); BUN/Creat Ratio 35.9 RATIO (10-20); Calcium,Total 8.9 mg/dL (8.5-10.1); Chloride 110 mmol/L (98-107); Cholesterol 155 mg/dL (200); Creatinine, Serum 0.53 mg/dL (0.55-1.02); EST Glomerular Filtration Rate 124 mL/min (>60); Est Glom Filt Rate - Afr Amer 150 mL/min (>60); Estimated Creatinine Clearance 150.93 ml/min; Glucose 122 mg/dL (74-106); High Density Lipoprotein 46 mg/dL; Potassium 3.8 mmol/L (3.5-5.1); Sodium Level 139 mmol/L (136-145); Thyroid Stim Hormone (TSH) 6.81 uIU/mL (0.358-3.74); Triglycerides 213 mg/dL; Very Low Density Lipoprotein 43 mg/dL (5-40)
[2023-01-21 07:47] LABS: Hemoglobin A1c 5.8 % (3.8-5.6)
[2023-01-21 07:56] VITALS: O2SAT 94
--- NOTE | 2023-01-21 07:59 | PCM.DC ---
Discharge Instructions Diet Discharge Diet: No restrictions Activity Discharge Activity: Return to Normal Activity Weight Bearing Status: Weight bearing as tolerated Dressing / Incision Call your doctor if you observe: Fever of 101 or Higher, Coldness, Increased Pain, Numbness or Tingling, Change in Color, Inability to urinate, Inability to have a bowel movement, Using more than 1 pad per hour, Shortness of breath, Dizziness, Fainting spells, Swelling in the ankles, Chest pain, Prolonged hiccupping, Increased palpitations (irregular heartbeat) and Calf discomfort Follow Up Care When: IN 2 WEEKS Test Results: Test results from this visit will be discussed in further detail at your follow-up appointment, if applicable. Discharge Plan Admission Admit Date/Time: 01/20/23 15:02 Primary Reason for Your Visit: Atypical chest pain, noncardiac Attending Provider: Michael Sanchez Primary Care Provider: [facility] Instructions Additional Instructions / Restrictions: Patient already on antihistamine regulatory and therefore prescription for Antivert not given. Take it as needed for dizziness Discharge Orders/Prescriptions Prescriptions: New pantoprazole 40 mg Tablet,Delayed Release (Dr/Ec) 40 mg PO BID 30 Days Qty: 60 1RF Rx Instructions: 40 mg twice daily for 2 months and then once daily. atorvastatin 20 mg tablet 20 mg PO QHS Qty: 30 2RF Continued lisinopril 10 MG tablet 20 mg PO DAILY montelukast 10 MG tablet 10 mg PO DAILY@1700 ergocalciferol (vitamin D2) 1,250 mcg (50,000 unit) capsule 1 cap PO FR Label Comments: TAKE 1 CAPSULE EVERY WEEK ascorbic acid (vitamin C) [Vitamin C] 500 mg Tablet 500 mg PO DAILY cyclobenzaprine 5 mg tablet 5 mg PO QHS Label Comments: TAKE 1 TABLET BY MOUTH AT BEDTIME NEEDED for muscle pain Changed loratadine 10 mg tablet 10 mg PO DAILY@1700 PRN (Reason: allergy) 30 Days Qty: 0 0RF naproxen 500 mg tablet 500 mg PO BID PRN (Reason: arthritis pain) 30 Days Qty: 0 0RF Label Comments: TAKE 1 TABLET BY MOUTH TWICE DAILY NEEDED Discontinued lovastatin 20 MG tablet extended release 24 hr 20 mg PO QHS omeprazole 40 mg capsule,delayed release(DR/EC) 40 mg PO QHS Label Comments: Take 1 by mouth every day Referrals / Follow Up: Philip Guadarrama MD [Med Staff - Active Staff] - Within 1 Month (Possible undiagnosed COPD, PFT and sleep study. Quit smoking 22 years ago) Friend,DO Bob [Med Staff - Active Staff] - Within 1 Month (For EGD for possible GERD/PUD/atypical noncardiac chest pain) [facility] [Primary Care Provider] - Disposition Disposition (needs filled in before D/C Order can be placed): Home, Self Care
[2023-01-21] MEDS: Enoxaparin 40 MG/0.4 ML Syringe SC (09:47)
[2023-01-21] MEDS: Ascorbic Acid 500 MG Tablet PO (09:49)
[2023-01-21] MEDS: Naproxen 500 MG Tablet PO (09:49)
[2023-01-21] MEDS: Pantoprazole Sodium 40 MG Tablet PO (09:49)
[2023-01-21] MEDS: Aspirin E.C. 81 MG Tablet PO (09:49)
[2023-01-21] MEDS: cycloBENZAPRine HCl 5 MG TABLET PO (09:49)
[2023-01-21] MEDS: Lisinopril 10 MG Tablet PO (09:49)
[2023-01-21 09:52] VITALS: BP 141/76; PULSE 69; RESP 16; TEMP 36.4; O2SAT 99
[2023-01-21 09:53] VITALS: BP 141/76; BP 148/100; BP 152/82; PULSE 67; PULSE 69; PULSE 75
--- NOTE | 2023-01-21 11:28 | CASEMGMT ---
Social Work SW spoke with patient regarding self-pay status. Pt reports she and her were over income when they last applied for Medicaid approx. one year ago. Pt has not been working while ill and reports concerns for paying bills and mounting medical debts. SW assisted in filling out Medicaid application and faxed arianna to [employer] for review. Destiny Kulkarni SKINNING MACHINE FEEDER, ELEVATOR DISPATCHER
[2023-01-21 11:30] LABS: T4 Free Direct 0.89 ng/dL (0.76-1.46)
--- NOTE | 2023-01-21 13:20 | DS.PCM_ITS ---
Providers Date of Admission: 01/20/23 Date of Discharge: 01/21/23 Primary Care Physician: [facility] Reason For Visit: DIZZINESS AND CP Diagnosis Discharge Diagnosis (1) Dizziness: Status: Acute Code(s): R42 - Dizziness and giddiness (2) Chest pain, atypical: Status: Acute Code(s): R07.89 - Other chest pain Plan This is a 62-year-old female is being admitted for dizziness and atypical chest pain. 1.? Atypical chest pain noncardiac in nature: Patient is being admitted in PCU.? First troponin mildly elevated at 128-second 118 and 31 124. Flat and plateau. No acute change in EKG.? MIAN risk score is 3. ? Patient was last admitted in September 2022 for similar symptoms of chest pain.? At that time patient had elevated troponins and cardiac cath was done which was reported normal. I discus sed with the ED physician and brick unloader tender.? Patient also had a stress test by outside brick unloader tender a year ago and was normal.?? Stress test not recommended as unnecessary in view of recent normal heart cath. And patient is physically deconditioned to walk on treadmill and Lexiscan may be relative contraindication for COPD. Repeat EKG does not show acute change. 01/21 D echo was done, reported EF 55 to 60%. No RWMA. Normal RV size and systolic function. Normal right and left atria. Mild MR. Patient might have atypical chest pain from GERD/extra esophageal symptoms of GERD/PUD. Patient on naproxen 500 mg twice daily. I change it to as needed only needed for arthritis pain. Started on pantoprazole 40 mg twice daily for 2 months, prescription given. Follow-up with Dr. Dueñas for outpatient EGD in 1 to 2 months. Patient might have pleuritic chest pain with history of smoking and possible undiagnosed COPD. Follow with Dr. Guadarrama in 1 month for PFT/sleep study. 2.? Acute on chronic intermittent dizziness nonspecific: Patient does not have vertigo.? History and exam not supportive of focal neurological deficit.? CT head was done which was reported normal.? Symptomatic management.? Orthostatic vitals.? Patient not having nausea or vomiting are acutely sick. 01/21 dizziness resolved. Clinically acute stroke/TIA not concerning. 3.? Hypertension and dyslipidemia: Blood pressure is controlled.? Continue home medication.? Fasting profile tomorrow AM. 4.? GERD: Chronic medical condition.? Might be a reason for atypical chest pain.? Rest as mentioned above 5.? Hyperglycemia diagnosed prediabetes: Patient might have prediabetes.? 01/21 A1c 5.8 prediabetes range. 1800 ADA diet recommended. Living will/advanced directive/end of life care: Patient does not have living will or advanced directive.? She does not endanger power of servicer coin machines for health.? Next of kin is her .? After discussion of benefits/risks procedures involved with? full code, DNR CC arrest and DNR CC, the patient is not yet decided therefore full code. Patient? does want artificial life support including intubation, tube feed, ventilator and/chest compression, central venous catheter, vasopressor and DC shock if needed Medications at Discharge Home Medications ergocalciferol (vitamin D2) 1,250 mcg (50,000 unit) capsule 1 cap PO FR SUPPLEMENT 01/21/20 lisinopril 10 mg tablet 20 mg PO DAILY blood pressure 01/21/20 montelukast 10 mg tablet 10 mg PO DAILY@1700 ALLERGIES 01/21/20 ascorbic acid (vitamin C) 500 mg tablet (Vitamin C) 500 mg PO DAILY vitamin 09/07/22 cyclobenzaprine 5 mg tablet 5 mg PO QHS pain 01/20/23 atorvastatin 20 mg tablet 20 mg PO QHS #30 tabs 01/21/23 loratadine 10 mg tablet 10 mg PO DAILY@1700 PRN allergy 30 days #0 tabs 01/21/23 naproxen 500 mg tablet 500 mg PO BID PRN arthritis pain 30 days #0 tabs 01/21/23 pantoprazole 40 mg tablet,delayed release 40 mg PO BID 30 days #60 tabs 01/21/23 Physical Exam Narrative Seen and examined. Chest pain and dizziness has resolved. Patient on baseline. No acute symptoms. General: Alert, Oriented x3, Cooperative HEENT: Atraumatic, PERRLA, EOMI, Normocephalic Oral: Oral mucosa moist.? No Gingival or Mucosal Lesions/ Ulcerations Neck: Supple, No JVD, Negative Carotid Bruits Lungs:? Air entry diminished in bilateral lung bases.? Occasional bilateral expiratory rhonchi? No tachypnea or hypoxia. Cardiovascular: Regular rate, Regular Rhythm, Normal S1, Normal S2, systolic murmur right second ICS. Abdomen: Bowel Sounds Present, Soft, Non Tender, Non-Distended : No renal angle tenderness.? No suprapubic tenderness. Extremities: Mild 1+ nonpitting chronic edema, Capillary Refill Less than 3 Seconds Skin: No rashes, No breakdown Musculoskeletal: No Tenderness to Palpation of Joints or Extremities.? ROM restricted.? Muscle strength 4+/5 at knees and hip joints Neurological: Cranial nerves II-XII grossly intact, DTR? 2+/4 and Symmetrical, gross sensation of touch and pressure symmetrical and equal on both sides.? No acute focal deficit. Psych/Mental Status: Flat affect. Weight / BMI Weight Weight: 194 lb 0.108 oz Body Mass Index (BMI) 43.4 ABG / Lab / Microbiology Data Result Diagrams: 01/21/23 05:48 01/21/23 05:48 Laboratory: Laboratory Results - last 24 hr 01/20/23 12:35: WBC 6.9, RBC 5.32, Hgb 14.7, Hct 45.3, MCV 85.2, MCH 27.6, MCHC 32.5, RDW Std Deviation 43.4, RDW Coeff of Kamer[place] 14.0, Plt Count 208, MPV 10.4, Immature Gran % (Auto) 0.100, Neut % (Auto) 60.1, Lymph % (Auto) 31.1, Coffee % (Auto) 5.7, Eos % (Auto) 2.3, Baso % (Auto) 0.7, Absolute Neuts (auto) 4.1, A bsolute Lymphs (auto) 2.13, Nucleated RBC % 0 01/20/23 12:35: Sodium 139, Potassium 4.0, Chloride 109 H, Carbon Dioxide 27.0, Anion Gap 3 L, BUN 20 H, Creatinine 0.57, Estim Creat Clear Calc 138.89, Est GFR (MDRD) Af Amer 137, Est GFR (MDRD) Non-Af 113, BUN/Creatinine Ratio 34.9 H, Glucose 132 H, Calcium 8.9, Total Bilirubin 0.50, AST 22, ALT 37, Alkaline Phos phatase 106, Troponin I High Sens 128 H*, Total Protein 6.6, Albumin 3.8, Cher bulin 2.8, Albumin/Globulin Ratio 1.4 01/20/23 13:59: Urine Color Yellow, Urine Clarity Clear, Urine pH 7.0, Ur Specific [place] 1.015, Urine Protein Negative, Urine Glucose (UA) Normal, Urine Ketones Negative, Urine Occult Blood Negative, Urine Nitrite Negative, Urine Bilirubin Negative, Urine Urobilinogen Normal, Ur Leukocyte Esterase 100 H, Urine RBC 0 SEEN, Urine WBC 0-5 SEEN, Ur Squamous Epith Cells 0 SEEN, Urine Bacteria 0 SEEN, Urine Mucus 0 SEEN 01/20/23 14:47: Troponin I High Sens 118 H 01/20/23 14:47: Phosphorus 3.2, Magnesium 2.1 01/20/23 20:30: Troponin I High Sens 124 H* 01/21/23 05:48: WBC 4.8, RBC 4.69, Hgb 12.8, Hct 40.2, MCV 85.7, MCH 27.3, MCHC 31.8 L, RDW Std Deviation 43.7, RDW Coeff of Kamer[place] 14.1, Plt Count 185, MPV 10.6, Immature Gran % (Auto) 0.200, Neut % (Auto) 43.3 L, Lymph % (Auto) 45.0 H, Coffee % (Auto) 6.2, Eos % (Auto) 4.5, Baso % (Auto) 0.8, Absolute Neuts (auto) 2.1, Absolute Lymphs (auto) 2.18, Nucleated RBC % 0 01/21/23 05:48: Sodium 139, Potassium 3.8, Chloride 110 H, Carbon Dioxide 25.0, Anion Gap 4 L, BUN 19 H, Creatinine 0.53 L, Estim Creat Clear Calc 150.93, Est GFR (MDRD) Af Amer 150, Est GFR (MDRD) Non-Af 124, BUN/Creatinine Ratio 35.9 H, Glucose 122 H, Calcium 8.9, Triglycerides 213 H, Cholesterol 155, LDL Cholesterol 66, VLDL Cholesterol 43 H, HDL Cholesterol 46, TSH 6.81 H 01/21/23 05:48: Hemoglobin A1c 5.8 H Radiography Diagnostic Testing: Radiology Impression Brain CT 01/20/23 13:02 IMPRESSION: Normal unenhanced CT scan of the brain. Electronically Signed: Geovanny Kent MD at 13:44 EDT , Chest X-Ray 01/20/23 14:10 IMPRESSION: Normal x-ray examination of the chest. Electronically Signed: Geovanny Kent MD at 14:48 EDT , D/C Instructions Discharge Diet: No restrictions Weight Bearing Status: Weight bearing as tolerated Call your doctor if you observe: Fever of 101 or Higher, Coldness, Increased Pain, Numbness or Tingling, Change in Color, Inability to urinate, Inability to have a bowel movement, Shortness of breath, Dizziness, Fainting spells, Swelling in the ankles, Chest pain, Prolonged hiccupping, Increased palpitations (irregular heartbeat) and Calf discomfort When: IN 2 WEEKS Meaningful Use Info Meaningful Use Diagnoses (Choose all that apply): None applicable Discharge Plan Admission Admit Date/Time: 01/20/23 15:02 Primary Reason for Your Visit: Atypical chest pain, noncardiac Attending Provider: Michael Sanchez [facility] Inst[facility] Additional Instructions / Restrictions: Patient already on antihistamine regulatory and therefore prescription for Antivert not given. Take it as needed for dizziness Discharge Orders/Prescriptions Prescriptions: New pantoprazole 40 mg Tablet,Delayed Release (Dr/Ec) 40 mg PO BID 30 Days Qty: 60 1RF Rx Instructions: 40 mg twice daily for 2 months and then once daily. atorvastatin 20 mg tablet 20 mg PO QHS Qty: 30 2RF Continued lisinopril 10 MG tablet 20 mg PO DAILY montelukast 10 MG tablet 10 mg PO DAILY@1700 ergocalciferol (vitamin D2) 1,250 mcg (50,000 unit) capsule 1 cap PO FR Label Comments: TAKE 1 CAPSULE EVERY WEEK ascorbic acid (vitamin C) [Vitamin C] 500 mg Tablet 500 mg PO DAILY cyclobenzaprine 5 mg tablet 5 mg PO QHS Label Comments: TAKE 1 TABLET BY MOUTH AT BEDTIME NEEDED for muscle pain Changed loratadine 10 mg tablet 10 mg PO DAILY@1700 PRN (Reason: allergy) 30 Days Qty: 0 0RF naproxen 500 mg tablet 500 mg PO BID PRN (Reason: arthritis pain) 30 Days Qty: 0 0RF Label Comments: TAKE 1 TABLET BY MOUTH TWICE DAILY NEEDED Discontinued lovastatin 20 MG tablet extended release 24 hr 20 mg PO QHS omeprazole 40 mg capsule,delayed release(DR/EC) 40 mg PO QHS Label Comments: Take 1 by mouth every day Referrals / Follow Up: Philip Guadarrama MD [Med Staff - Active Staff] - Within 1 Month (Possible undiagnosed COPD, PFT and sleep study. Quit smoking 22 years ago) Friend,DO Bob [Med Staff - Active Staff] - Within 1 Month (For EGD for possible GERD/PUD/atypical noncardiac chest pain) [facility] [Primary Care Provider] - Disposition Disposition (needs filled in before D/C Order can be placed): Home, Self Care Charges/Coding Visit Charges Inpatient E&M: 95832 Disch Hosp >30min
== END 2023-01-21 11:03 | disposition home or self-care (01) ==
LOC: ED 13:08 → PCU 15:27
PROVIDERS: Admitting Provider Internal Medicine; Emergency Provider Emergency Medicine; Visit Provider Internal Medicine
DX: R07.89 Other chest pain (principal); J44.9 Chronic obstructive pulmonary disease, unspecified; E11.9 Type 2 diabetes mellitus without complications; R42 Dizziness and giddiness; I10 Essential (primary) hypertension; E78.5 Hyperlipidemia, unspecified; Z87.891 Personal history of nicotine dependence; I25.9 Chronic ischemic heart disease, unspecified; Z79.899 Other long term (current) drug therapy; K21.9 Gastro-esophageal reflux disease without esophagitis
CPT/HCPCS: 36415; 70450; 71045; 80048; 80053; 80061; 81001; 83036; 83735; 84100; 84439; 84443; 84484; 85025; 93005; 93306; 94668; 96361; 96365; 96372; 99221; 99252; 99285; J7040; J7120; Q9957; A4216; C8929; G0378; G0463

== ENCOUNTER → 2023-02-08 | Outpatient (CLI) | payer SELFPAY | END | disposition home or self-care (01) | LOC: PSN 12:26 | PROVIDERS: Referring Provider Nurse Practitioner Family; Visit Provider Nurse Practitioner Family | DX: R00.2 Palpitations (principal); R42 Dizziness and giddiness | CPT/HCPCS: 93225; 93226 ==

== ENCOUNTER 2023-05-13 09:43 | Emergency (ER) | payer OTHER, SELFPAY ==
[2023-05-13 09:44] VITALS: BP 118/85; PULSE 88; RESP 18; TEMP 36.6; O2SAT 96; BMI 43.0
--- NOTE | 2023-05-13 09:58 | RAD_ITS ---
STUDY: X-RAY - LEFT HAND REASON FOR EXAM: Female, 62 years old. Injury/Pain TECHNIQUE: 3 view(s) of the hand. COMPARISON: None. FINDINGS: Normal radiocarpal articulation. Normal distal radioulnar joint. Normal visualized carpal bones. Normal carpal articulations Normal carpometacarpal articulation of the thumb. Normal second through fifth carpometacarpal joints. Normal metacarpi. Normal metacarpophalangeal joint of the thumb. Normal interphalangeal joint of the thumb. Normal proximal and distal phalanges of the thumb. Normal metacarpophalangeal joints of the second through fifth fingers. Normal proximal and distal interphalangeal joints of the second through fifth fingers. Normal phalanges of the second through fifth fingers. The soft tissue structures are unremarkable. RAD/Hand Min 3 Views IMPRESSION: Normal x-ray examination of the hand. Electronically Signed: Mazin Elias MD at 10:59 EDT ,
--- NOTE | 2023-05-13 09:58 | RAD_ITS ---
STUDY: X-RAY - LEFT KNEE REASON FOR EXAM: Female, 62 years old. Injury/Pain TECHNIQUE: 4 view(s) of the knee. COMPARISON: None. FINDINGS: Normal visualized distal femur. Normal visualized proximal tibia and fibula. Normal proximal tibiofibular articulation. Normal medial femorotibial compartment. Normal lateral femorotibial compartment. Normal patellofemoral articulation. The soft tissue structures are unremarkable. RAD/Knee 4 or More Views IMPRESSION: Normal x-ray examination of the knee. Electronically Signed: Mazin Elias MD at 11:00 EDT ,
--- NOTE | 2023-05-13 09:59 | EDS_ITS ---
HPI HPI - Fall History of Present Illness Chief Complaint: Fall Detail of Chief Complaint: Fall at work injuring the left knee, hand and elbow Informant: patient Occured/Mechanism Occurred: Today and Hours Mechanism/Context: Yes same level fall Narrative: Patient was at work. She tripped. She slid and put her arms out to break her fall. Usually ambulates: Without assistance Pain/Injury Location: Left elbow, hand and knee Worsened by: Movement and palpation Relieved by: Nothing Associated Symptoms Associated Symptoms: Negative for Parasthesias, Weakness, Loss of function, Inability to ambulate, Loss of consciousness or Amnesia Narrative Narrative: Patient is a 62-year-old [id number] woman who presents because of injury that occurred at work. She fell and put her arms out. She comes planes of pain to the left hand, elbow and left knee. She denies head trauma. She states she is on an anticoagulant. Review of her list reveals no anticoagulant and she is unable to name an anticoagulant. She denies visual, ocular auditory symptoms. She denies neck pain. She denies cardiac or respiratory symptoms. She denies paresthesia, anesthesia or motor weakness upper or lower extremities. Tetanus is unknown. Tetanus Immunization: Unknown Prior similar symptoms: No Recent Illness/Hospitalization: No PFSH PFSH Medical History Chronic bronchitis COPD (chronic obstructive pulmonary disease) Diabetes GERD (gastroesophageal reflux disease) Hypertension Migraines SOURAV (obstructive sleep apnea) Home Medications ergocalciferol (vitamin D2) 1,250 mcg (50,000 unit) capsule 1 cap PO FR SUPPLEMENT 01/21/20 [History Last Taken 01/13/23] lisinopril 10 mg tablet 20 mg PO DAILY blood pressure 01/21/20 [History Last Taken 01/19/23] montelukast 10 mg tablet 10 mg PO DAILY@1700 ALLERGIES 01/21/20 [History Last Taken 01/19/23] ascorbic acid (vitamin C) 500 mg tablet (Vitamin C) 500 mg PO DAILY vitamin 09/07/22 [History Last Taken 01/19/23] cyclobenzaprine 5 mg tablet 5 mg PO QHS pain 01/20/23 [History Last Taken 01/19/23] atorvastatin 20 mg tablet 20 mg PO QHS #30 tabs 01/21/23 [Rx Last Taken Unknown] loratadine 10 mg tablet 10 mg PO DAILY@1700 PRN allergy 30 days #0 tabs 01/21/23 [Rx Last Taken 01/19/23] aspirin 81 mg tablet,delayed release 81 mg PO DAILY 03/15/23 [History Last Taken Unknown] pantoprazole 40 mg tablet,delayed release 40 mg PO QAM #90 tabs 03/15/23 [Rx Last Taken Unknown] sucralfate 1 gram tablet 1 g PO BID #60 tabs 05/09/23 [Rx Last Taken Unknown] Allergy/AdvReac Type Severity Reaction Status Date / Time aspirin Allergy Vomiting Verified 05/13/23 09:50 Surgical History H/O shoulder surgery H/O: hysterectomy History of mandibular surgery Social History Smoking Status: Former smoker alcohol intake: former substance use type: does not use ROS ROS ED Constitutional Constitutional ED: Denies chills, fever(s), subjective, sweats or weight loss Eyes Eyes: Denies blurry vision or change in vision ENT ENT ED: Denies ear pain or sore throat Cardiovascular Cardiovascular: Denies chest pain or palpitations Respiratory/Chest Respiratory/Chest: Denies cough or dyspnea Gastrointestinal Gastrointestinal: Denies nausea or vomiting Musculoskeletal Musculoskeletal: Denies back pain or neck pain Integumentary Reports other Details: Bruising to left hand, proximal left forearm/elbow, left knee and an abrasion dorsal surface left ring finger over the proximal phalanx region. Neurologic Neurologic: Denies headache(s) or paresthesias Hematologic/Lymphatic Hematologic/Lymphatic: Reports easy bruising; Denies easy bleeding EXAM Physical Exam Const Vital Signs: 05/13/23 09:44 05/13/23 10:22 Temperature 97.9 F Temperature Source Temporal Pulse Rate 88 Respiratory Rate 18 Respiratory Effort Normal Blood Pressure 118/85 H Blood Pressure Mean 96 Pulse Ox 96 Oxygen Delivery Method Room Air Positive well nourished, well developed and obese General Appearance ED: well developed and NAD Nutritional Appearance: obese HEENT Reports normocephalic and TM's normal bilaterally HEENT Narrative: There is no evidence of trauma to the nose. There is no dental trauma. atraumatic Eyes PERRL and EOMs intact bilaterally General Eye ED: Negative for pale conjunctiva or scleral icterus Neck full ROM and no lymphadenopathy Chest Wall inspection of chest normal and palpation of chest normal Resp normal respiratory effort, no retractions and clear to auscultation bilaterally Cardio regular rate, regular rhythm, S1 normal heart sound, S2 normal heart sound and no murmurs Extremity Extremity Narrative: There is Pingel patient with a lateral epicondyles olecranon process. She has pain with supination pronation but not over the radial head per se. There is no pain the patient with distal radius or ulna. There is no pain that is over the carpal bones, anatomical snuffbox or with axial loading of the thumb. There is pain to outpatient over the third, fourth and fifth metacarpal bone left hand. There is soft tissue swelling with ecchymosis noted. There is an abrasion dorsal surface of the left ring finger with pain elevation of the proximal phalanx. The extensor minimally, extensor commonness and extensor inside tendon are intact. The flexor digitorum superficialis and flexor digitorum profundus is intact for the index, long, ring and little finger. There is no subungual hematoma of the thumb or fingers. Axillary, median, radial and ulnar function intact. Radial pulses palpable. There is no pain ovation over the proximal left humerus. There is soft tissue swelling and ecchymosis noted left knee. There is pain outpatient along the left joint line. This may be due to contusion versus bony injury. The patella is not ballotable. There is swelling but no effusion appreciated. Patient able to extend to 180 degrees and flex to 90 degrees. There is no laxity varus valgus stress testing. Lynette's test was negative. Patient is able to ambulate and bear weight. She does have a slight limp. Neuro oriented x3, CN's II-XII intact bilaterally, moves all extremities, no focal motor deficits and no sensory deficits noted Eliseo Coma Scale: document GCS findings Spontaneous Obeys Commands Oriented 15 Sensorium / Orientation: alert Motor Exam: strength 5/5 throughout Psych mental status grossly normal and thought process normal Skin Skin Narrative: Contusion as previously described under the extremity portion of the EMR Lesions: no lesions Rashes: no rashes Trauma: abrasion MDM MDM MDM Narrative Medical decision making narrative: Patient received Tylenol for her pain. X-ray of the left hand, elbow and knee were obtained to evaluate for contusion versus fracture. Since there is no head trauma she has no neurologic symptoms imaging of the head was not obtained. Since there is no complaint of neck point at this point there is no indication to x-ray the neck. Radiography Chest X-Ray - ED: Read by ED Physician (Three-view x-ray of the elbow and hand and 4 view x-ray of the knee was independent reviewed interpreted by me at 1047. The elbow x-ray reveals no evidence of anterior posterior fat pad, fracture, subluxation or dislocation. The hand x-ray reveals no evidence of fracture or foreign body. The x-ra) Discharge Plan Triage Chief Complaint: Fall ED Provider: Natan Gusman Dx/Rx/DC Orders Clinical Impression: Injury due to fall, Contusion of left hand including fingers, Contusion of left elbow, initial encounter, Abrasion of left ring finger, initial encounter, Contusion of left knee, initial encounter Instructions: ED Abrasion, ED Contusion, Lower Extremity, ED Contusion, Upper Extremity Prescriptions: No Action aspirin 81 mg tablet,delayed release (DR/EC) 81 mg PO DAILY pantoprazole 40 mg tablet,delayed release (DR/EC) 40 mg PO QAM Qty: 90 3RF lisinopril 10 MG tablet 20 mg PO DAILY montelukast 10 MG tablet 10 mg PO DAILY@1700 ergocalciferol (vitamin D2) 1,250 mcg (50,000 unit) capsule 1 cap PO FR Patient Comments: TAKE 1 CAPSULE EVERY WEEK ascorbic acid (vitamin C) [Vitamin C] 500 mg Tablet 500 mg PO DAILY cyclobenzaprine 5 mg tablet 5 mg PO QHS Patient Comments: TAKE 1 TABLET BY MOUTH AT BEDTIME NEEDED for muscle pain atorvastatin 20 mg tablet 20 mg PO QHS Qty: 30 2RF loratadine 10 mg tablet 10 mg PO DAILY@1700 PRN (Reason: allergy) 30 Days Qty: 0 0RF sucralfate 1 gram tablet 1 g PO BID Qty: 60 0RF Primary Care Provider: [facility] Philip Referrals: [facility] [Group of Physicians] - [facility] - Activity Restrictions/Additional Instructions: 1. You may hurt in more places and you presently do over the next several days 2. Your pain may increase over the next 24 to 48 hours 3. Apply ice to areas of discomfort 6-10 times a day for the next 3 to 5 days 4. Follow-up with [facility] 5. You may take Tylenol every 4-6 hours for pain. Disposition Disposition: Home, Self Care
[2023-05-13] MEDS: Acetaminophen 325 MG Tablet 650 MG PO (10:13)
--- NOTE | 2023-05-13 10:20 | RAD_ITS ---
STUDY: X-RAY - LEFT ELBOW REASON FOR EXAM: Female, 62 years old. Injury/Pain TECHNIQUE: 3 view(s) of the elbow. COMPARISON: None. FINDINGS: Normal visualized humerus, radius and ulna. Normal radiocapitellar and ulnotrochlear articulations. The soft tissue structures are unremarkable. RAD/Elbow min 3 Views IMPRESSION: Normal x-ray examination of the elbow. Electronically Signed: Mazin Elias MD at 10:55 EDT ,
== END 2023-05-13 10:59 | disposition home or self-care (01) ==
PROVIDERS: Emergency Provider Emergency Medicine; Visit Provider Emergency Medicine
DX: S50.02XA Contusion of left elbow, initial encounter (principal); J44.9 Chronic obstructive pulmonary disease, unspecified; E11.9 Type 2 diabetes mellitus without complications; S80.02XA Contusion of left knee, initial encounter; S60.415A Abrasion of left ring finger, initial encounter; S60.222A Contusion of left hand, initial encounter; I10 Essential (primary) hypertension; Z87.891 Personal history of nicotine dependence; W01.0XXA Fall on same level from slipping, tripping and stumbling without subsequent striking against object, initial encounter; Y99.0 Civilian activity done for income or pay; E66.9 Obesity, unspecified
CPT/HCPCS: 73080; 73130; 73564; 99282

== ENCOUNTER 2024-04-14 16:38 | Emergency (ER) | payer OTHER, SELFPAY ==
[2024-04-14 16:39] VITALS: BP 139/88; PULSE 85; RESP 18; TEMP 36.1; O2SAT 96; BMI 41.8
--- NOTE | 2024-04-14 17:00 | EDS_ITS ---
HPI HPI - Fall History of Present Illness Chief Complaint: Fall Informant: patient Occured/Mechanism Occurred: Today Narrative Narrative: Patient presents secondary to a fall at work. 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 She does not remember if she tripped over something. She landed on her right shoulder and complains of pain to her right shoulder and right arm, right hand, bilateral knees. She reports a small laceration or abrasion to the left thumb that was cleansed by a coworker and a bandage placed. She did not strike her head or lose consciousness. She is not on blood thinners. She is right-hand dominant. [facility] Medical History SOURAV (obstructive sleep apnea) Chronic bronchitis Diabetes GERD (gastroesophageal reflux disease) COPD (chronic obstructive pulmonary disease) Hypertension Migraines Home Medications ?Medication ?Instructions ?Recorded ?Last Taken ?Type ergocalciferol (vitamin D2) 1,250 1 cap PO FR SUPPLEMENT 01/21/20 01/13/23 History mcg (50,000 unit) capsule lisinopril 10 mg tablet 20 mg PO DAILY blood pressure 01/21/20 01/19/23 History montelukast 10 mg tablet 10 mg PO DAILY@1700 ALLERGIES 01/21/20 01/19/23 History ascorbic acid (vitamin C) 500 mg 500 mg PO DAILY vitamin 09/07/22 01/19/23 History tablet (Vitamin C) cyclobenzaprine 5 mg tablet 5 mg PO QHS pain 01/20/23 01/19/23 History atorvastatin 20 mg tablet 20 mg PO QHS #30 tabs 01/21/23 Unknown Rx loratadine 10 mg tablet 10 mg PO DAILY@1700 PRN allergy 30 01/21/23 01/19/23 Rx days #0 tabs aspirin 81 mg tablet,delayed 81 mg PO DAILY 03/15/23 Unknown History release pantoprazole 40 mg tablet,delayed 40 mg PO QAM #90 tabs 03/15/23 Unknown Rx release sucralfate 1 gram tablet 1 g PO BID #60 tabs 01/29/24 Unknown Rx Allergy/AdvReac Type Severity Reaction Status Date / Time aspirin Allergy Vomiting Verified 04/14/24 16:39 Surgical History History of mandibular surgery H/O shoulder surgery H/O: hysterectomy Social History Smoking Status: Former smoker alcohol intake: former substance use type: does not use ROS ROS ED Constitutional Constitutional ED: Denies chills or fever(s) Eyes Eyes: Denies discharge from eye(s) ENT ENT ED: Denies discharge from eye(s) or rhinorrhea Cardiovascular Cardiovascular: Denies chest pain or palpitations Respiratory/Chest Respiratory/Chest: Denies cough or dyspnea Gastrointestinal Gastrointestinal: Denies abdominal pain, nausea or vomiting Genitourinary Genitourinary ED: Denies dysuria Musculoskeletal Musculoskeletal: Reports extremity pain; Denies back pain Integumentary Reports Abrasions; Denies rash Neurologic Neurologic: Reports weakness; Denies headache(s) or paresthesias Psychiatric Psychiatric: Denies anxiety or depression Allergic/Immunologic Allergic/Immunologic ED: Denies lip swelling or urticaria EXAM Physical Exam Const Vital Signs: 04/14/24 16:39 04/14/24 16:53 Temperature 97 F L Temperature Source Temporal Pulse Rate 85 Respiratory Rate 18 Respiratory Effort Normal Non-Labored Respiratory Depth Normal Respiratory Pattern Normal Blood Pressure 139/88 H Blood Pressure Mean 105 Pulse Ox 96 Oxygen Delivery Method Room Air Positive well nourished and well developed General Appearance ED: well developed HEENT Reports normocephalic Eyes EOMs intact bilaterally Neck full ROM Neck Narrative: No C-spine tenderness. Chest Wall inspection of chest normal and palpation of chest normal Resp normal respiratory effort and clear to auscultation bilaterally Cardio regular rate and regular rhythm GI non-tender Palpation: soft Extremity Extremity Narrative: Right upper extremity: Diffuse tenderness location around the right shoulder and scapula. No obvious deformity. Decreased range of motion secondary to pain. Mild tenderness over the proximal humerus. No focal tenderness at the elbow or wrist. Patient has a small area of erythema to the palm of the hand with some mild tenderness. Good cap refill distally and can wiggle fingers. Left upper extremity: Bandage on the left thumb is removed. There is a small abrasion with no active bleeding. No blood noted on the dressing. Full range of motion with no bony tenderness. Lower extremities: Mild tenderness outpatient of the anterior bilateral knees. Good range of motion. Neuro oriented x3, no focal motor deficits and no sensory deficits noted MDM MDM MDM Narrative Medical decision making narrative: X-rays of the right shoulder, right humerus, right hand, bilateral knees will be obtained to evaluate for fracture or acute bony injury. Radiography Diagnostic Testing: Clinical Impression(s) from Imaging Studies Hand X-Ray 04/14/24 17:15 IMPRESSION: Negative right hand x-rays. Electronically Signed: Jalil Humphries MD at 18:27 EDT , Humerus X-Ray 04/14/24 17:15 IMPRESSION: Negative right humerus x-rays. Electronically Signed: Jalil Humphries MD at 18:19 EDT Reading Location ID and State: [id number] / [employer] , Service support , Knee X-Ray 04/14/24 17:15 IMPRESSION: Degenerative arthrosis. Electronically Signed: Jalil Humphries MD at 18:14 EDT Reading Location ID and State: [id number] / [address] , [employer] support , Knee X-Ray 04/14/24 17:15 IMPRESSION: Negative left knee x-rays. Electronically Signed: Jalil Humphries MD at 18:24 EDT , Shoulder X-Ray 04/14/24 17:15 IMPRESSION: There are no acute findings of the shoulder. Electronically Signed: Jalil Humphries MD at 18:21 EDT , Treatment and Re-Evaluation Narrative: X-rays were all reviewed by myself. I see no obvious fracture or dislocation. Radiology interpretation is reviewed and all studies and are in agreement. Test results were discussed with the patient. We did discuss the possibility of a tendon injury in her shoulder. She was given a sling and will work on range of motion over the next several days. When she follows up with corporate care they will reevaluate her shoulder. If there is still suspicion for possible ligament or tendon injury, they can refer her for further imaging or orthopedics follow-up. Patient comfortable with the plan. Discharge Plan Triage Chief Complaint: Fall ED Provider: Dulce Izquierdo Dx/Rx/DC Orders Clinical Impression: Fall, Sprain of right shoulder, Contusion of knee Instructions: ED Contusion, Lower Extremity, ED Mechanical Fall, ED Shoulder Sprain Prescriptions: No Action aspirin 81 mg tablet,delayed release (DR/EC) 81 mg PO DAILY pantoprazole 40 mg tablet,delayed release (DR/EC) 40 mg PO QAM Qty: 90 3RF sucralfate 1 gram tablet 1 g PO BID Qty: 60 10RF lisinopril 10 MG tablet 20 mg PO DAILY montelukast 10 MG tablet 10 mg PO DAILY@1700 ergocalciferol (vitamin D2) 1,250 mcg (50,000 unit) capsule 1 cap PO FR Patient Comments: TAKE 1 CAPSULE EVERY WEEK ascorbic acid (vitamin C) [Vitamin C] 500 mg Tablet 500 mg PO DAILY cyclobenzaprine 5 mg tablet 5 mg PO QHS Patient Comments: TAKE 1 TABLET BY MOUTH AT BEDTIME NEEDED for muscle pain atorvastatin 20 mg tablet 20 mg PO QHS Qty: 30 2RF loratadine 10 mg tablet 10 mg PO DAILY@1700 PRN (Reason: allergy) 30 Days Qty: 0 0RF Stand Alone Forms: Work Status Form Primary Care Provider: [facility] Yesica Philip Referrals[facility] [Group of Physicians] - [facility] - Print Language: [place] Disposition Disposition: Home, Self Care
--- NOTE | 2024-04-14 17:15 | RAD_ITS ---
EXAM: XR RIGHT HAND COMPLETE, 3 OR MORE VIEWS CLINICAL INDICATION: injury TECHNIQUE: Frontal, lateral and oblique views of the right hand. COMPARISON: No relevant prior studies available. FINDINGS: BONES/JOINTS: Unremarkable. No acute fracture. No subluxation. Normal alignment. Preservation of the joint space. No sclerotic or destructive changes observed. SOFT TISSUES: Unremarkable. No soft tissue swelling or gas. No radiopaque foreign body. RAD/Hand Min 3 Views IMPRESSION: Negative right hand x-rays. Electronically Signed: Jalil Humphries MD at 18:27 EDT ,
--- NOTE | 2024-04-14 17:15 | RAD_ITS ---
STUDY: XR Knee Complete 4 Views or More 04/14/2024 6:13 PM REASON FOR EXAM: Female, 63 years old. injury TECHNIQUE: XR Knee Complete 4 Views or More RIGHT COMPARISON: None FINDINGS: Normal visualized distal femur. Normal visualized proximal tibia and fibula. Normal proximal tibiofibular articulation. There is mild degenerative arthrosis of the medial femorotibial compartment. There is mild degenerative arthrosis of the lateral femorotibial compartment. There is mild degenerative arthrosis of the patellofemoral articulation. The soft tissue structures are unremarkable. RAD/Knee 4 or More Views IMPRESSION: Degenerative arthrosis. Electronically Signed: Jalil Humphries MD at 18:14 EDT ,
--- NOTE | 2024-04-14 17:15 | RAD_ITS ---
STUDY: XR Shoulder Min 2 Views REASON FOR EXAM: Female, 63 years old. injury TECHNIQUE: XR Shoulder 2 Views RIGHT COMPARISON: None. FINDINGS: There is mild degenerative arthrosis of the glenohumeral articulation. There is degenerative arthrosis of the acromioclavicular joint without inferior osseous spur formation. Normal acromion. Normal humeral head and visualized proximal humerus. The soft tissue structures are unremarkable. Normal visualized pulmonary apex. RAD/Shoulder min 2 Views IMPRESSION: There are no acute findings of the shoulder. Electronically Signed: Jalil Humphries MD at 18:21 EDT ,
--- NOTE | 2024-04-14 17:15 | RAD_ITS ---
EXAM: XR RIGHT HUMERUS, 2 OR MORE VIEWS CLINICAL INDICATION: injury TECHNIQUE: Frontal and lateral views of the right humerus. COMPARISON: No relevant prior studies available. FINDINGS: BONES/JOINTS: Unremarkable. No acute fracture. No subluxation. Normal alignment. Preservation of the joint space. No sclerotic or destructive changes observed. SOFT TISSUES: Unremarkable. No soft tissue swelling or gas. No radiopaque foreign body. RAD/Humerus min 2 Views IMPRESSION: Negative right humerus x-rays. Electronically Signed: Jalil Humphries MD at 18:19 EDT ,
--- NOTE | 2024-04-14 17:15 | RAD_ITS ---
EXAM: XR LEFT KNEE COMPLETE, 4 OR MORE VIEWS CLINICAL INDICATION: injury TECHNIQUE: Four or more views of the left knee. COMPARISON: No relevant prior studies available. FINDINGS: BONES/JOINTS: Unremarkable. No acute fracture. No subluxation. Normal alignment. Preservation of the joint space. No sclerotic or destructive changes observed. SOFT TISSUES: Unremarkable. No soft tissue swelling or gas. No radiopaque foreign body. RAD/Knee 4 or More Views IMPRESSION: Negative left knee x-rays. Electronically Signed: Jalil Humphries MD at 18:24 EDT ,
== END 2024-04-14 19:32 | disposition home or self-care (01) ==
PROVIDERS: Emergency Provider Emergency Medicine; Visit Provider Emergency Medicine
DX: S43.401A Unspecified sprain of right shoulder joint, initial encounter (principal); J44.9 Chronic obstructive pulmonary disease, unspecified; E11.9 Type 2 diabetes mellitus without complications; W19.XXXA Unspecified fall, initial encounter; I10 Essential (primary) hypertension; M79.632 Pain in left forearm; M79.631 Pain in right forearm; Z87.891 Personal history of nicotine dependence; K21.9 Gastro-esophageal reflux disease without esophagitis; Y99.0 Civilian activity done for income or pay; S80.01XA Contusion of right knee, initial encounter
CPT/HCPCS: 73030; 73060; 73130; 73564; 99283

== ENCOUNTER → 2024-05-07 | Outpatient (CLI) | payer OTHER, SELFPAY ==
--- NOTE | 2024-05-07 11:33 | RAD_ITS ---
STUDY: X-RAY - RIGHT ELBOW REASON FOR EXAM: Female, 63 years old. Fall TECHNIQUE: 3 view(s) of the elbow. COMPARISON: None. FINDINGS: Normal visualized humerus, radius and ulna. Normal radiocapitellar and ulnotrochlear articulations. The soft tissue structures are unremarkable. RAD/Elbow min 3 Views IMPRESSION: Normal x-ray examination of the elbow. Electronically Signed: Geovanny Kent MD at 11:50 EDT ,
--- NOTE | 2024-05-07 11:33 | RAD_ITS ---
STUDY: X-RAY - RIGHT WRIST REASON FOR EXAM: Female, 63 years old. Wrist pain following a fall. TECHNIQUE: 3 view(s) of the wrist were obtained. COMPARISON: None. FINDINGS: Normal visualized distal radius and ulna. Normal radiocarpal articulation. Normal distal radioulnar articulation. Normal carpal bones. Normal carpal articulations. Normal carpometacarpal articulation of the thumb. Normal second through fifth carpometacarpal articulations. Normal visualized metacarpal bones. Soft tissue swelling. RAD/Wrist min 3 Views IMPRESSION: Soft tissue swelling. Electronically Signed: Geovanny Kent MD at 11:50 EDT ,
== END | disposition home or self-care (01) ==
PROVIDERS: Referring Provider Physician Assistant; Visit Provider Physician Assistant
DX: M25.531 Pain in right wrist (principal); W19.XXXA Unspecified fall, initial encounter
CPT/HCPCS: 73080; 73110

== ENCOUNTER → 2024-06-18 | Outpatient (CLI) | payer MEDICARE, SELFPAY ==
[2024-06-18 16:00] LABS: Vitamin B12 808 pg/mL (211-911); Vitamin D,25 Hydroxy 46.7 ng/mL
[2024-06-18 16:13] LABS: ALB/GLOB Ratio 1.3 RATIO (0.9-2.4); AST(SGOT) 19 U/L (15-37); Alanine Aminotransfer ALT/SGPT 32 U/L (13-56); Albumin, Serum 3.9 g/dL (3.2-5.0); Alkaline Phosphatase 113 U/L (45-117); Anion Gap 6 (5-15); BUN 23 mg/dL (7-18); BUN/Creat Ratio 48.2 RATIO (10-20); Calcium,Total 9.3 mg/dL (8.5-10.1); Chloride 109 mmol/L (98-107); Cholesterol 161 mg/dL (200); Creatinine, Serum 0.48 mg/dL (0.55-1.02); EST Glomerular Filtration Rate 139 mL/min (>60); Est Glom Filt Rate - Afr Amer 168 mL/min (>60); Glucose 94 mg/dL (74-106); High Density Lipoprotein 57 mg/dL; Protein, Total 6.9 g/dL (6.4-8.2); Sodium Level 141 mmol/L (136-145); Triglycerides 145 mg/dL; Very Low Density Lipoprotein 29 mg/dL (5-40)
[2024-06-19 08:39] LABS: Absolute Lymphocyte Count 2.13 X10^3/uL (0.83-4.51); Absolute Neutrophil Count 3.3 X10^3/uL (2.0-7.7); Basophil# 0.05 X10^3/uL; Basophil% 0.8 % (0-1); Eosinophil# 0.11 X10^3/uL; Eosinophils% 1.8 % (0-5); Hematocrit 44.7 % (37-47); Hemoglobin 14.3 g/dL (12.0-15.0); Lymphocyte # 2.13 X10^3/ul (0.83-4.51); Lymphocyte % 35.8 % (19-41); Mean Corpuscular Hgb 27.7 pg (27.0-32.0); Mean Corpuscular Volume 86.6 fL (81-99); Mean Platelet Vol. 11.2 fl (6.2-12.0); NRBC Flagged by Analyzer 0 % (0-5); Neutrophil # 3.33 X10^3/uL (2.7-7.7); Neutrophil % 56.1 % (47-70); Platelet Count 215 K/mm3 (150-450); RBC Distribution Width CV 14.3 % (11.6-14.6); RBC Distribution Width SD 45.5 fl (35.1-43.9); Red Blood Count 5.16 M/mm3 (4.2-5.4)
== END | disposition home or self-care (01) ==
LOC: LAB 14:06
PROVIDERS: Referring Provider Nurse Practitioner Family; Visit Provider Nurse Practitioner Family
DX: I10 Essential (primary) hypertension (principal); E78.5 Hyperlipidemia, unspecified; E56.9 Vitamin deficiency, unspecified; R73.03 Prediabetes
CPT/HCPCS: 36415; 80053; 80061; 82306; 82607; 83036; 84443; 85025

== ENCOUNTER 2024-07-02 14:30 | Outpatient (RCR) | payer OTHER, SELFPAY | END 2024-07-02 19:00 | disposition home or self-care (01) | LOC: PT 14:30 | PROVIDERS: Referring Provider Physician Assistant; Visit Provider Physician Assistant | DX: S46.911D Strain of unspecified muscle, fascia and tendon at shoulder and upper arm level, right arm, subsequent encounter (principal) | CPT/HCPCS: 97110; 97140; 97162 ==

== ENCOUNTER → 2025-01-14 | Outpatient (CLI) | payer MEDICARE, OTHER, SELFPAY ==
[2025-01-14 17:04] LABS: Absolute Neutrophil Count 2.9 X10^3/uL (2.0-7.7); Basophil# 0.07 X10^3/uL; Basophil% 1.2 % (0-1); Eosinophil# 0.09 X10^3/uL; Eosinophils% 1.5 % (0-5); Hematocrit 44.6 % (37-47); Hemoglobin 14.5 g/dL (12.0-15.0); Lymphocyte % 41.7 % (19-41); Mean Corp Hgb Conc 32.5 g/dL (32-36); Mean Corpuscular Hgb 27.7 pg (27.0-32.0); Mean Corpuscular Volume 85.1 fL (81-99); Mean Platelet Vol. 10.3 fl (6.2-12.0); Monocyte# 0.38 X10^3/uL; Monocyte% 6.3 % (0-10); NRBC Flagged by Analyzer 0 % (0-5); Neutrophil # 2.93 X10^3/uL (2.7-7.7); Platelet Count 224 K/mm3 (150-450); RBC Distribution Width CV 14.4 % (11.6-14.6); RBC Distribution Width SD 44.2 fl (35.1-43.9); Red Blood Count 5.24 M/mm3 (4.2-5.4)
[2025-01-14 17:27] LABS: ALB/GLOB Ratio 1.8 RATIO (0.9-2.4); AST(SGOT) 37 U/L (<=31); Alanine Aminotransfer ALT/SGPT 42 U/L (<=34); Albumin, Serum 4.6 g/dL (3.4-4.8); Alkaline Phosphatase 120 U/L (35-104); Anion Gap 13 (5-15); BUN 19 mg/dL (4-19); BUN/Creat Ratio 34.4 RATIO (10-20); Calcium,Total 9.9 mg/dL (7.6-11.0); Carbon Dioxide 23.8 mmol/L (21.0-32.0); Chloride 103 mmol/L (98-108); Creatinine, Serum 0.55 mg/dL (0.70-1.20); EST Glomerular Filtration Rate 102 (>60); Globulin 2.6 g/dL (2.2-4.2); Glucose 75 mg/dL (70-99); Protein, Total 7.2 g/dL (5.9-8.4); Sodium Level 140 mmol/L (133-145); Total Bilirubin 0.61 mg/dL (0.00-1.30)
[2025-01-14 17:28] LABS: Hemoglobin A1c 6.4 % (<=5.6)
== END | disposition home or self-care (01) ==
LOC: VSLAB 13:35
PROVIDERS: PCP Nurse Practitioner Family; Visit Provider Nurse Practitioner Family
DX: R73.03 Prediabetes (principal); I10 Essential (primary) hypertension
CPT/HCPCS: 36415; 80053; 83036; 85025

== ENCOUNTER → 2025-02-25 | Outpatient (CLI) | payer MEDICARE, SELFPAY | END | disposition home or self-care (01) | PROVIDERS: PCP Nurse Practitioner Family; Referring Provider Nurse Practitioner Family; Visit Provider Nurse Practitioner Family | DX: G47.33 Obstructive sleep apnea (adult) (pediatric) (principal) | CPT/HCPCS: 95806 ==

== ENCOUNTER → 2025-03-14 | Outpatient (CLI) | payer MEDICARE, SELFPAY ==
--- NOTE | 2025-03-14 10:56 | BI_ITS ---
EXAM: SCRN MAMM (CAD)W/MARY BETH BILAT 03/14/2025 CLINICAL HISTORY: F, Age 64 y/o , SCREENING TECHNIQUE: Bilateral screening digital breast tomosynthesis with 2D and 3D images. Computer aided detection. COMPARISON: Prior exam(s) dated 02/03/2022, 01/14/2021. FINDINGS: TISSUE DENSITY: The breast tissue is composed of scattered area of fibroglandular density. Bilateral Breast Mammographic Findings: No significant masses, calcifications or other abnormalities are identified. BI/SCRN MAMM (CAD)W/MARY BETH BILAT IMPRESSION: Right Breast: BIRADS 1 NEGATIVE. Left Breast: BIRADS 1 NEGATIVE. OVERALL FINAL ASSESSMENT: BIRADS 1 NEGATIVE. RECOMMENDATION: Routine annual follow-up in 1 Year A letter with findings and recommendations will be mailed to the patient. Reading Location: [id number]
== END | disposition home or self-care (01) ==
LOC: OPBI 10:53
PROVIDERS: PCP Nurse Practitioner Family; Referring Provider Nurse Practitioner Family; Visit Provider Nurse Practitioner Family
DX: Z12.31 Encounter for screening mammogram for malignant neoplasm of breast (principal)
CPT/HCPCS: 77063; 77067

== ENCOUNTER → 2025-03-21 | Outpatient (CLI) | payer MEDICARE, SELFPAY | END | disposition home or self-care (01) | LOC: PSN 12:43 | PROVIDERS: PCP Nurse Practitioner Family; Referring Provider Nurse Practitioner Family; Visit Provider Nurse Practitioner Family | DX: J42 Unspecified chronic bronchitis (principal) | CPT/HCPCS: 94060; 94726; 94729 ==

== ENCOUNTER → 2025-04-10 | Outpatient (CLI) | payer MEDICARE, SELFPAY ==
--- NOTE | 2025-04-10 12:52 | NM_ITS ---
PROCEDURE: GASTRIC EMPTYING STUDY 04/10/2025 REASON FOR EXAM: FREQUENT NAUSEA TECHNIQUE: The patient ingested a semi solid meal of oatmeal. There was no vomiting postprandially. Anterior and posterior planar images of the upper abdomen were obtained for 60 minutes. Regions of interest were drawn, and a geometric mean was used to calculate a [id number]. Medications taken in the past 24 hours that may affect gastric emptying: None RADIOPHARMACEUTICAL: Technetium 99 M sulfur colloid DOSE 1.0mCi orally, with the oatmeal. FINDINGS: During the time of imaging, gastroesophageal reflux was not visualized. Linear fit gastric emptying half time of 45.65 minutes. Raw data gastric emptying half-time of 44.99 minutes. Gastric emptying at 18 minutes of 19%, at 30 minutes of 37%, at 48 minutes of 50%, and at 60 minutes of 62%. NM/Gastric Emptying Study IMPRESSION: Normal semi solid phase gastric emptying. Reading Location: [address]
== END | disposition home or self-care (01) ==
LOC: NM 12:52
PROVIDERS: PCP Nurse Practitioner Family
DX: R10.13 Epigastric pain (principal); R11.0 Nausea; K21.9 Gastro-esophageal reflux disease without esophagitis
CPT/HCPCS: 78264; A9541

== ENCOUNTER 2025-04-13 11:55 | Emergency (ER) | payer MEDICARE, SELFPAY ==
[2025-04-13 11:56] VITALS: BP 142/88; PULSE 93; RESP 18; TEMP 36.9; O2SAT 97; BMI 43.4
--- NOTE | 2025-04-13 12:15 | EDS_ITS ---
HPI <JOSEPHINE Lomas - Last Filed: 04/13/25 13:36> History of Present Illness Chief Complaint: Foreign Body Narrative Narrative: Patient presenting today due to concerns for a pill being lodged in her throat. She was her daily medications this morning and took multiple pills at 1 time and felt like 1 got lodged in her throat. Her then performed the Heimlich maneuver which did not improve her symptoms. She denies any associated vomiting, difficulty swallowing, shortness of breath, or coughing. She is tolerating her secretions. PFSH <JOSEPHINE Lomas - Last Filed: 04/13/25 13:36> [facility] Medical History Right wrist sprain Contusion of right elbow Right shoulder strain Contusion of left knee Contusion of right knee SOURAV (obstructive sleep apnea) Chronic bronchitis Diabetes GERD (gastroesophageal reflux disease) COPD (chronic obstructive pulmonary disease) Hypertension Migraines Home Medications ?Medication ?Instructions ?Recorded ?Last Taken ?Type ergocalciferol (vitamin D2) 1,250 1 cap PO FR SUPPLEME NT 01/21/20 01/13/23 History mcg (50,000 unit) capsule montelukast 10 mg tablet 10 mg PO DAILY@1700 ALLERGIE S 01/21/20 01/19/23 History ascorbic acid (vitamin C) 500 mg 500 mg PO DAILY vitam in 09/07/22 01/19/23 History tablet (Vitamin C) cyclobenzaprine 5 mg tablet 5 mg PO QHS pain 01/20/23 01/19/23 History atorvastatin 20 mg tablet 20 mg PO QHS #30 tabs Unknown Rx loratadine 10 mg tablet 10 mg PO DAILY@1700 PRN berna rgy 30 01/21/23 01/19/23 Rx days #0 tabs aspirin 81 mg tablet,delayed 81 mg PO DAILY 03/15/23 U nknown History release sucralfate 1 gram tablet 1 g PO BID #60 tabs 01/29/24 Unknown Rx fluticasone fur. 100 mcg-umeclid 1 ea inhalation QDAY 02/07/25 Unknown History 62.5 mcg-vilant 25 mcg inhalat.powder (Trelegy Ellipta) fluticasone propionate 50 2 spray intranasal QHS 02/07 Unknown History mcg/actuation nasal spray,suspension ipratropium 0.5 mg-albuterol 3 mg ml inhalation Q8 PRN 02/07/25 Unknown History (2.5 mg base)/3 mL nebulization soln lisinopril 20 mg tablet 20 mg PO QDAY 02/07/25 Unkno wn History metformin 500 mg tablet,extended 500 mg PO QDAY Unknown History release 24 hr metoprolol succinate 25 mg 25 mg PO QDAY 02/07/25 Unkn own History tablet,extended release 24 hr multivitamin 1 tab PO QDAY 02/07/25 Unkno wn History nebulizers (Compact Compressor 02/07/25 Unknown Histo ry Nebulizer) triamcinolone acetonide 0.1 % applic topical BID PRN i tch 02/07/25 Unknown History topical cream famotidine 40 mg tablet 40 mg PO QHS #30 tabs Unknown Rx omeprazole 40 mg capsule,delayed 40 mg PO QDAY #30 cap s 03/25/25 Unknown Rx release ondansetron HCl 4 mg tablet 4 mg PO Q8H PRN nausea and 03/25/25 Unknown Rx vomiting #30 tabs Allergy/AdvReac Type Severity Reaction Status Date / Time latex Allergy Intermediate Other Verified 04/13/25 11:58 aspirin Allergy Vomiting Verified 04/13/25 11:58 Family History Father Diabetes Surgical History History of mandibular surgery H/O shoulder surgery H/O: hysterectomy Social History Smoking Status: Former smoker alcohol intake: former substance use type: does not use ROS <JOSEPHINE Lomas - Last Filed: 04/13/25 13:36> ROS ED Constitutional Constitutional ED: Denies chills or fever(s) Cardiovascular Cardiovascular: Denies chest pain Respiratory/Chest Respiratory/Chest: Denies dyspnea Gastrointestinal Gastrointestinal: Denies abdominal pain, nausea or vomiting Musculoskeletal Musculoskeletal: Denies arthralgias or myalgias Integumentary Denies rash Neurologic Neurologic: Denies weakness EXAM <JOSEPHINE Lomas - Last Filed: 04/13/25 13:36> Physical Exam Const Vital Signs: 04/13/25 11:56 04/13/25 12:20 04/13/25 12:56 Temperature 98.4 F 97.9 F Temperature Source Oral Pulse Rate 93 75 Respiratory Rate 18 16 Respiratory Effort Normal Non-Labored Respiratory Pattern Normal Blood Pressure 142/88 H 144/96 H Blood Pressure Mean 106 112 Pulse Ox 97 97 Oxygen Delivery Method Room Air Positive well nourished, well developed and no apparent distress General Appearance ED: well developed HEENT Reports normocephalic and head/scalp atraumatic HEENT Narrative: Posterior pharynx clear, tolerating secretions, no drooling Mouth ED: Yes moist mucous membranes normal Eyes PERRL and EOMs intact bilaterally Neck full ROM and supple Neck Narrative: No stridor Chest Wall inspection of chest normal Resp normal respiratory effort and clear to auscultation bilaterally Cardio regular rate and regular rhythm GI soft to palpation, non-tender, non-distended and no masses Back/Spine normal ROM and normal to inspection Extremity normal to inspection and full ROM Neuro oriented x3, CN's II-XII intact bilaterally, moves all extremities, no focal motor deficits and no sensory deficits noted Sensorium / Orientation: awake and alert Psych mental status grossly normal and thought process normal Skin no rashes or lesions noted and no wounds <Dr. Alfredo Owen DO - Last Filed: 04/13/25 12:40> Physical Exam Const Vital Signs: 04/13/25 11:56 04/13/25 12:20 04/13/25 12:56 Temperature 98.4 F 97.9 F Temperature Source Oral Pulse Rate 93 75 Respiratory Rate 18 16 Respiratory Effort Normal Non-Labored Respiratory Pattern Normal Blood Pressure 142/88 H 144/96 H Blood Pressure Mean 106 112 Pulse Ox 97 97 Oxygen Delivery Method Room Air MDM <Juliane Arita PA - Last Filed: 04/13/25 13:36> [facility] Narrative Medical decision making narrative: Patient presenting today due to feeling like a pill is stuck in her throat. She is tolerating p.o. fluids at the bedside, she was able to drink a can of Sprite and eat saltine crackers without difficulty. She is tolerating her secretions. She has no cough, no vomiting. She is otherwise in no acute distress. Vitals are unremarkable. After drinking the Sprite she did have some improvement of her symptoms. Suspect she could have an esophageal abrasion. She was given a GI cocktail which also improved her symptoms. Recommended she follow-up with her PCP and she will be discharged home in stable condition. <Dr. Alfredo Owen, DO - Last Filed: 04/13/25 12:40> [facility] Treatment and Re-Evaluation :: I have personally performed a face to face assessment of the patient and have reviewed the SALINA Note. I performed a substantive portion of the visit including all aspects of the following. My howard findings include: History: Patient presents with possible esophageal foreign body that occurred today. Patient states she is swallowing pills when she felt stuck. Patient is stating that her gave her a lot of the Heimlich maneuver. Patient states nothing came out. Patient patient is able to swallow liquids and crackers. Patient denies any shortness of breath. Patient denies any cough. Exam: Vital signs are stable. Patient is afebrile. Patient is in no acute distress. Oral mucosa is pink and moist. Oropharynx is clear. Airway is patent. Neck is supple. Trachea is midline. There is no JVD. Heart was regular rate and rhythm. Lungs are clear and equal bilaterally. Abdomen is soft. Bowel sounds are normal. There is no tenderness. Cranial nerves II through XII are intact. There are no focal motor or sensory deficits noted. Medical Decision Making: Patient was advised that this could be an esophageal abrasion. Since she is able to swallow liquids and crackers, I do not feel that an emergent endoscopy is necessary at this time. Patient was given a GI cocktail. Patient was instructed to follow-up with her primary care physician in 5 to 7 days. Patient was instructed to start with a soft diet and advance as tolerated. Patient understood and was agreeable with the plan. All questions were answered. Discharge Plan Triage Chief Complaint: Foreign Body ED Midlevel Provider: Juliane Arita ED Provider: Alfredo Owen Dx/Rx/DC Orders Clinical Impression: Sensation of foreign body in throat Instructions: ED Swallowed Foreign Body (Adult) Prescriptions: No Action aspirin 81 mg tablet,delayed release (DR/EC) 81 mg PO DAILY sucralfate 1 gram tablet 1 g PO BID Qty: 60 10RF fluticasone propionate 50 mcg/actuation spray,suspension 2 spray intranasal QHS lisinopril 20 mg tablet 20 mg PO QDAY metoprolol succinate 25 mg tablet extended release 24 hr 25 mg PO QDAY triamcinolone acetonide 0.1 % cream topical BID PRN (Reason: itch) Trelegy Ellipta 100-62.5-25 mcg blister with device 1 ea inhalation QDAY ipratropium-albuterol 0.5 mg-3 mg(2.5 mg base)/3 mL solution for nebulization inhalation Q8 PRN (DME) nebulizers [Compact Compressor Nebulizer] Misc See Rx Instructions .Route Rx Instructions: As directed metformin 500 mg tablet extended release 24 hr 500 mg PO QDAY multivitamin Tablet 1 tab PO QDAY omeprazole 40 mg capsule,delayed release(DR/EC) 40 mg PO QDAY Qty: 30 2RF famotidine 40 mg tablet 40 mg PO QHS Qty: 30 2RF ondansetron HCl 4 mg tablet 4 mg PO Q8H PRN (Reason: nausea and vomiting) Qty: 30 0RF montelukast 10 MG tablet 10 mg PO DAILY@1700 ergocalciferol (vitamin D2) 1,250 mcg (50,000 unit) capsule 1 cap PO FR Patient Comments: TAKE 1 CAPSULE EVERY WEEK ascorbic acid (vitamin C) [Vitamin C] 500 mg Tablet 500 mg PO DAILY cyclobenzaprine 5 mg tablet 5 mg PO QHS Patient Comments: TAKE 1 TABLET BY MOUTH AT BEDTIME NEEDED for muscle pain atorvastatin 20 mg tablet 20 mg PO QHS Qty: 30 2RF loratadine 10 mg tablet 10 mg PO DAILY@1700 PRN (Reason: allergy) 30 Days Qty: 0 0RF Primary Care Provider: Yenny Perez Referrals: Yenny Perez, [employer] [Primary Care Provider] - 5-7 Days Activity Restrictions/Additional Instructions: Follow-up with your PCP and return for any other concerns or worsening symptoms. Print Language: Serbian Disposition Disposition: Home, Self Care Discharge Date/Time: 04/13/25 13:19
[2025-04-13] MEDS: Lidocaine 2% Viscous15 ML UDC 15 ML PO (12:37)
--- OUTSIDE RECORDS SUMMARY | 2025-04-13 12:38 | XMS RPT_ITS | CCD ---
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 tabs aspirin 81 mg tablet,delayed 81 mg PO DAILY 03/15/23 03/21/25 H istory release sucralfate 1 gram tablet 1 g PO BID #60 tabs 01/29/2403/21 Rx fluticasone fur. 100 mcg-umeclid 1 ea inhalation QDAY 02/07/2503/03 History 62.5 mcg-vilant 25 mcg inhalat.powder (Trelegy Ellipta) fluticasone propionate 50 2 spray intranasal QHS 02/07/25 History mcg/actuation nasal spray,suspension ipratropium 0.5 mg-albuterol 3 mg ml inhalation Q8 PRN 02/07/25 History (2.5 mg base)/3 mL nebulization soln lisinopril 20 mg tablet 20 mg PO QDAY 02/07/25 03/21/25 Hi story metformin 500 mg tablet,extended 500 mg PO QDAY 02/07/25 03/21/25 H istory release 24 hr metoprolol succinate 25 mg 25 mg PO QDAY 02/07/25 03/21/25 Hi story tablet,extended release 24 hr multivitamin 1 tab PO QDAY 02/07/25 03/21/25 Hi story nebulizers (Compact Compressor 02/07/25 03/21/25 History Nebulizer) triamcinolone acetonide 0.1 % applic topical BID PRN itch 03/21/25 History topical cream famotidine 40 mg tablet 40 mg PO QHS #30 tabs 03/25/25 Rx omeprazole 40 mg capsule,delayed 40 mg PO QDAY #30 caps 03/25/25 Rx release ondansetron HCl 4 mg tablet 4 mg PO Q8H PRN nausea and 5 03/25/25 Rx vomiting #30 tabs Patient : No Have you fallen in the past year?: No Nurse's Note: OV 03/25/25 Pt here for a f/u. Pt reports n/v, abdominal pain, gas, bloating and difficulty swallowing. Pt reports she vomits daily. Continues taking pantoprazole and sucralfate daily. [facility] Medical History Right wrist sprain Contusion of right elbow Right shoulder strain Contusion of left knee Contusion of right knee SOURAV (obstructive sleep apnea) Chronic bronchitis Diabetes GERD (gastroesophageal reflux disease) COPD (chronic obstructive pulmonary disease) Hypertension Migraines Surgical History History of mandibular surgery H/O shoulder surgery H/O: hysterectomy Family History Father Diabetes Social History Smoking Status: Former smoker alcohol intake: former substance use type: does not use HPI HPI Details: BRANDI SAUCEDA, is a 64 F who presents to the office today for FU. *BGI established 03.15.23 with referral from pulmonology for upper abdominal/chest/epiga stric pain/burning with sensation of food sticking and morning nausea with intermittent heartburn; PPI started with resolution of emesis. No health insurance making EGD cost prohibitive. Continue protonix, start sucralfate. OV 08.07.23 PCP stopped Carafate. While taking Carafate she has a resolution of symptoms, with stop of Carafate she is now having nausea and upset stomach. PPI continues. Denies marijuana, cigarette and alcohol use. OV 01.29.24 pt reports daily N/V since her PCP took her off carafate. Pt reports that she occasionally has trouble swallowing. Pt reports that she has 3-4 formed bm per day. Pt continues taking pantoprazole.Continue pantoprazole 40 mg, ok to take it QAM to save costs, but can increase back to BID if needed. Add sucralfate bid for a month, GoodRx $15 at [facility]. f/u 2 mos 03.25.25 OV She reports being on pantoprazole daily and sucralfate but it's not working. She reports daily nausea, uses motion sickness medicine from OTC, and epigastric pain from heartburn. She denies emesis, d (more content not included)... Normal [facility] Breast imaging reportOrdered By: Fatou Deluca on 03-14-2025 Study report [facility] Imaging Services [address] [place] [address] SCRN MAMM (CAD)W/MARY BETH BILAT MR#: [id number] Acct: [id number] Name: BRANDI SAUCEDA Rep #: [id number] : 1960 F 64 From: Melissa Deluca MD PCP: Yenny Kauffman Cecil, G[employer] OR W[employer] METER INSTALLER-C Status: [facility] CLI Study:SCRN MAMM (CAD)W/MARY BETH BILAT Date of Exa m: 03/14/25 Exam# [id number] Ordering Dr: Yenny Kauffman Cecil G[employer] METER INSTALLER-C EXAM: SCRN MAMM (CAD)W/MARY BETH BILAT 03/14/2025 CLINICAL HISTORY: F, Age 64 y/o , SCREENING TECHNIQUE: Bilateral screening digital breast tomosynthesis with 2D and 3D images. Computeraided detection. COMPARISON: Prior exam(s) dated 02/03/2022, 01/14/2021. FINDINGS: TISSUE DENSITY: The breast tissue is composed of scattered area of fibroglandular density. Bilateral Breast Mammographic Findings: No significant masses, calcifications or other abnormalities are identified. BI/SCRN MAMM (CAD)W/MARY BETH BILAT IMPRESSION: Right Breast: BIRADS 1 NEGATIVE. Left Breast: BIRADS 1 NEGATIVE. OVERALL FINAL ASSESSMENT: BIRADS 1 NEGATIVE. RECOMMENDATION: Routine annual follow-up in 1 Year A letter with findings and recommendations will be mailed to the patient. Reading Location: [id number] CC: [facility] G[employer] OR WATER METER INSTALLER-C Yenny Kauffman ~ Editor Map: Signed [facility] SCRN MAMM (CAD)W/MARY BETH BILATo n 03-14-2025 SCRN MAMM (CAD)W/MARY BETH BILAT [facility] Imaging Services [address] [place] [address] SCRN MAMM (CAD)W/MARY BETH BILAT MR#: [id number] Acct: [id number] Name: BRANDI SAUCEDA Rep #: [id number] : 1960 F 64 From: Fatou Deluca MD PCP: RONEY Reyes, G[employer] W[employer] METER INSTALLER-C Status: REG CLI Study: SCRN MAMM (CAD)W/MARY BETH BILAT Date of Exam: 03/02 12/24 Exam# [id number] Ordering Dr: Yenny Kauffman G[employer] W[employer] METER INSTALLER-C EXAM: SCRN MAMM (CAD)W/MARY BETH BILAT 03/14/2025 CLINICAL HISTORY: F, Age 64 y/o , SCREENING TECHNIQUE: Bilateral screening digital breast tomosynthesis with 2D and 3D images. Computer aided detection. COMPARISON: Prior exam(s) dated 02/03/2022, 01/14/2021. FINDINGS: TISSUE DENSITY: The breast tissue is composed of scattered area of fibroglandular density. Bilateral Breast Mammographic Findings: No significant masses, calcifications or other abnormalities are identified. BI/SCRN MAMM (CAD)W/MARY BETH BILAT IMPRESSION: Right Breast: BIRADS 1 NEGATIVE. Left Breast: BIRADS 1 NEGATIVE. OVERALL FINAL ASSESSMENT: BIRADS 1 NEGATIVE. RECOMMENDATION: Routine annual follow-up in 1 Year A letter with findings and recommendations will be mailed to the patient. Reading Location: [id number] CC: [facility] GAS OR WATER METER INSTALLER-Cecil Kauffman Editor Map: Signed Normal [facility] Pulmonary Visit Reporton Pulmonary Visit Report [facility] [place] [address] [place], [place] [address] OFFICE VISIT Date of Service: 02/07/25 MR#: [id number] Acct: [id number] Name: BRANDI SAUCEDA Rep #: [id number] : 1960 Provider: Dolores Hunt NP Age/Sex: 64/F [place] [facility] [place] Status: Signed Assessment and Plan Assessment and Plan (1) Chronic bronchitis: Status: Chronic Qualifiers: Chronic bronchitis type: unspecified Qualified Code(s): J42 - Unspecified chronic bronchitis Plan: Suspect COPD, former 43-beyn-zgar smoker, quit smoking 22 years ago, verses asthma. I have recommended a PFT at this time. The patient indicates that at her PCP as previously prescribed Trelegy so a refill does not need to be sent into pharmacy today. I have recommended that she continue on this current therapy. The patient does not meet criteria for low-dose screening lung CT as she did quit smoking over 20 years ago. The patient should notify this practice if she has worsening respiratory symptoms. (2) SOURAV (obstructive sleep apnea): Status: Suspected Plan: I am suspecting obstructive sleep apnea due to patient's daytime hypersomnia and high STOP-BANG. The patient is agreeable to a home sleep study. She was not agreeable to an in lab study. I have recommended that she proceed in this direction at this time. The pathophysiology of obstructive sleep apnea was reviewed at length with patient today. The treatment for sleep apnea was also discussed. She understands that if she is found to have sleep apnea that PAP therapy is recommended. I have recommended a follow-up in 3 months for which testing will be completed and if patient is positive will have been set up on PAP therapy so that at the follow-up a compliance download can be reviewed. Orders: Orders Unattended Sleep Study Today G47.33 - Obstructive sleep apnea (adult) (pediatric) PFT Complete - DLCO, Spirometry b/a bronchodilators, lung volumes 03/21/25 J42 - Unspecified chronic bronchitis Plan Details Follow Up: 3 Months (LMR) HPI HPI Comments Details: Patient is a 64-year-old female who presents today to follow-up regarding COPD and suspected obstructive sleep apnea. She has not followed with this clinic since 2022, her PCP recommended follow-up at this time. She is ambulatory and currently on room air. At last evaluation it was recommended that she undergo a home sleep study along with a PFT. She quit smoking over 20 years ago. still smokes. She has not had respiratory illness requiring oral prednisone or antibiotics since last visit. She did use Trelegy 100, and did not have side effects to this inhaled therapy such as hoarseness or sore throat. Unfortunately she was not able to afford the inhaler so had discontinued it. She was given samples of Breztri and reports that it did not work as well as Trelegy. When she did use Trelegy she reports that there was benefit in regards to releasing mucous from her chest. She has had an insurance change and believes that Trelegy will be more affordable at this time. she also has available albuterol nebulized, for which she is using it once daily. She reports compliance with montelukast, loratadine. She denies wheezing and coughing. She reports that shortness of breath is present. She denies chest pain and chest tightness. She denies fever, chills, body aches. She is tired throughout the day. She reports that she does snore and has witnessed apnea by her . She does awaken at night gasping for air. She has hypertension present. BMI is elevated. STOP-BANG Assessment: 1. Do you snore? [Y] 2. Are you frequently tired during the day? [Y] 3. Have you been observed gasping or choking while asleep? [Y] 4. Do you have high blood pressure? [Y] 5. BMI - greater than 35kg/m2? [Y] 6. Age - over 50 years old? [Y] 7. Neck Circumference - greater than 37 cm for females or 40 cm for males? [N, 36cm] 8. Gender - male? [N] Total STOP-BANG score = [6] which indicates [high] risk for obstructive sleep apnea (yes to 3 or more questions = high risk of sleep apnea). Intake Vital Signs 05/07/24 11:08 02/07/25 08:05 Height 4 ft 8 in 4 ft 8 in Weight: 193 lb BMI 43.2 BP 145/89 H Blood Pressure Location Lt radial Position Sitting Respiration 20 H Pulse 88 Pulse Source Monitor Temp 97.3 F L Temperature Source Temporal Artery Pulse Oximetry (%) 96 Oxygen Delivery Method room air Intake Visit Reasons: Pt to follow up per PCP Vp Revenue Cycle Required: No DME Vendor: n/a Accompanied by: Self Is patient in pain?: No Allergies aspirin Allergy (Verified 02/07/25 13:54) Vomiting Medications ???Medication ???Instructions ???Recorded ???Confirmed ???Type ergocalciferol (vitamin D2) 1,250 1 cap PO FR SUPPLEMENT 01/21/20 0 02/07 (more content not included)... Normal [facility] Absolute lymphocyte countOrd ered By: [facility] Yennyjonathan Kauffman on 01-14-2025 Lymphocytes Auto (Unsp spec) [#/Vol] 2.50 10*3/uL 0.83-4.51 [facility] Absolute neutrophil countOrd ered By: [facility] Yenny Kauffman on 01-14-2025 Neutrophils (Bld) [#/Vol] 2.9 10*3/uL 2.0-7.7 [facility] Anion gap in Serum or Plasma Ordered By: [facility] Yennyjonathan Kauffman on 01-14-2025 Anion gap [Moles/Vol] 13 mmol/L 02-13 [facility] Automated lymphocyte count a s percentage of total leukocytesOrdered By: [facility] Yenny Kauffman on 01-14-2025 Lymphocytes/100 WBC Auto (Unsp spec) 41.7 % High 19-41 [facility] BUN/creatinine ratioOrdered By: [facility] Yennyjonathan Kauffman on 01-14-2025 Urea nitrogen/Creatinine [Mass ratio] 34.4 mg/mg High 10-20 [facility] Basophil percentageOrdered B y: [facility] Yenny Kauffman on 01-14-2025 Basophils/100 WBC (Bld) 1.2 % High 0-1 [facility] Bilirubin, totalOrdered By: [facility] Yenny Kauffman on 01-14-2025 Bilirubin [Mass/Vol] 0.61 mg/dL 0.00-1.30 [facility] CBC W/Diff, Automatedon 04-1 5-2025 Absolute Lymph 2.50 X10 3/uL Normal 0.83-4.51 [facility] Comment on above: Performed By: #### L 501.9985, L500.4050, L100.0100 ####[facility] [address] [place], [address] Absolute Neut 2.9 X10 3/uL Normal 2.0-7.7 [facility] Comment on above: Performed By: #### L 501.9985, L500.4050, L100.0100 ####[facility] [address] [place], [address] Basophils/100 WBC (Bld) 1.2 % High 0-1 [facility] Comment on above: Performed By: #### L 501.9985, L500.4050, L100.0100 ####[facility] [address] [place], [address] Eosinophils/100 WBC (Bld) 1.5 % Normal 0-5 [facility] Comment on above: Performed By: #### L 501.9985, L500.4050, L100.0100 ####[facility] [address] [place], [address] Erythrocyte distribution width (RBC) [Ratio] 14.4 % Normal 11.6-14.6 [facility] Comment on above: Performed By: #### L 501.9985, L500.4050, L100.0100 ####[facility] [address] [place], [address] Hematocrit (Bld) [Volume fraction] 44.6 % Normal 37-47 [facility] Comment on above: Performed By: #### L 501.9985, L500.4050, L100.0100 ####[facility] [address] [place], [address] Hemoglobin (Bld) [Mass/Vol] 14.5 g/dL Normal 12.0-15.0 [facility] Comment on above: Performed By: #### L 501.9985, L500.4050, L100.0100 ####[facility] [address] [place], [address] IG% 0.300 Normal 0.0-0.9 [facility] Comment on above: Result Comment: IG% - Immature Granulocytes (promyelocytes, myelocytes and metamyelocytes) > 1% indicates that a LEFT SHIFT is Present. Performed By: #### L 501.9985, L500.4050, L100.0100 ####[facility] [address] [place], [address] Lymphocytes/100 WBC (Bld) 41.7 % High 19-41 [facility] Comment on above: Performed By: #### L 501.9985, L500.4050, L100.0100 ####[facility] [address] [place], [address] MCH (RBC) [Entitic mass] 27.7 pg Normal 27.0-32.0 [facility] Comment on above: Performed By: #### L 501.9985, L500.4050, L100.0100 ####[facility] [address] [place], [address] MCHC (RBC) [Mass/Vol] 32.5 g/dL Normal 32-36 [facility] Comment on above: Performed By: #### L 501.9985, L500.4050, L100.0100 ####[facility] [address] [place], [address] MCV (RBC) [Entitic vol] 85.1 fL Normal 81-99 [facility] Comment on above: Performed By: #### L 501.9985, L500.4050, L100.0100 ####[facility] [address] [place], [address] Monocytes/100 WBC (Bld) 6.3 % Normal 0-10 [facility] Comment on above: Performed By: #### L 501.9985, L500.4050, L100.0100 ####[facility] [address] [place], [address] Neutrophils/100 WBC (Bld) 49.0 % Normal 47-70 [facility] Comment on above: Performed By: #### L 501.9985, L500.4050, L100.0100 ####[facility] [address] [place], [address] Nucleated RBC (Bld) [#/Vol] 0 10*3/uL Normal 0-5 [facility] Comment on above: Performed By: #### L 501.9985, L500.4050, L100.0100 ####[facility] [address] [place], [address] Platelet mean volume (Bld) [Entitic vol] 10.3 fL Normal 6.2-12.0 [facility] Comment on above: Performed By: #### L 501.9985, L500.4050, L100.0100 ####[facility] [address] [place], [address] Platelets (Bld) [#/Vol] 224 10*3/uL Normal 150-450 [facility] Comment on above: Performed By: #### L 501.9985, L500.4050, L100.0100 ####[facility] [address] [place], [address] RBC (Bld) [#/Vol] 5.24 10*6/uL Normal 4.2-5.4 [facility] Comment on above: Performed By: #### L 501.9985, L500.4050, L100.0100 ####[facility] [address] [place], [address] RDW SD 44.2 fl High 35.1-43.9 [facility] Comment on above: Performed By: #### L 501.9985, L500.4050, L100.0100 ####[facility] [address] [place], [address] WBC (Bld) [#/Vol] 6.0 10*3/uL Normal 4.4-11.0 [facility] Comment on above: Performed By: #### L 501.9985, L500.4050, L100.0100 ####[facility] [address] [place], [address] Carbon dioxide, total [Moles /volume] in Central venous bloodOrdered By: [facility] Yenny Kauffman on 01-14-2025 CO2 [Moles/Vol] 23.8 mmol/L 21.0-32.0 [facility] Chloride assayOrdered By: [facility] Yenny Kauffman on 01-14-2025 Chloride [Moles/Vol] 103 mmol/L 98-108 [facility] Comprehensive Metabolic Prof ilon 01-14-2025 Albumin [Mass/Vol] 4.6 g/dL Normal 3.4-4.8 [facility] Comment on above: Performed By: #### L 501.9985, L500.4050, L100.0100 ####[facility] [address] [place], [address] Albumin/Globulin [Mass ratio] 1.8 {ratio} Normal 0.9-2.4 [facility] Comment on above: Performed By: #### L 501.9985, L500.4050, L100.0100 ####[facility] [address] [place], [address] ALK PHOS 120 U/L High 35-104 [facility] Comment on above: Performed By: #### L 501.9985, L500.4050, L100.0100 ####[facility] [address] [place], [address] ALT [Catalytic activity/Vol] 42 U/L High <=34 [facility] Comment on above: Performed By: #### L 501.9985, L500.4050, L100.0100 ####[facility] [address] [place], [address] AST [Catalytic activity/Vol] 37 U/L High <=31 [facility] Comment on above: Performed By: #### L 501.9985, L500.4050, L100.0100 ####[facility] [address] [place], [address] Bilirubin [Mass/Vol] 0.61 mg/dL Normal 0.00-1.30 [facility] Comment on above: Performed By: #### L 501.9985, L500.4050, L100.0100 ####[facility] [address] [place], [address] BUN/CRE 34.4 RATIO High 10-20 [facility] Comment on above: Performed By: #### L 501.9985, L500.4050, L100.0100 ####[facility] [address] [place], [address] Calcium [Mass/Vol] 9.9 mg/dL Normal 7.6-11.0 [facility] Comment on above: Performed By: #### L 501.9985, L500.4050, L100.0100 ####[facility] [address] [place], [address] Chloride [Moles/Vol] 103 mmol/L Normal 98-108 [facility] Comment on above: Performed By: #### L 501.9985, L500.4050, L100.0100 ####[facility] [address] [place], [address] CO2 [Moles/Vol] 23.8 mmol/L Normal 21.0-32.0 [facility] Comment on above: Performed By: #### L 501.9985, L500.4050, L100.0100 ####[facility] [address] [place], [address] Creatinine [Mass/Vol] 0.55 mg/dL Low 0.70-1.20 [facility] Comment on above: Performed By: #### L 501.9985, L500.4050, L100.0100 ####[facility] [address] [place], [address] GAP 13 Normal 5-15 [facility] Comment on above: Performed By: #### L 501.9985, L500.4050, L100.0100 ####[facility] [address] [place], [address] GFR/1.73 sq M.predicted among non-blacks MDRD (S/P/Bld) [Vol rate/Area] 102 mL/min/{1.73_m2} Normal >60 [facility] Comment on above: Result Comment: mL/m in/1.73m2 CKD-EPI Creatinine Equation (2020) Performed By: #### L 501.9985, L500.4050, L100.0100 ####[facility] [address] [place], [address] Globulin (S) [Mass/Vol] 2.6 g/dL Normal 2.2-4.2 [facility] Comment on above: Performed By: #### L 501.9985, L500.4050, L100.0100 ####[facility] [address] [place], [address] Glucose [Mass/Vol] 75 mg/dL Normal 70-99 [facility] Comment on above: Performed By: #### L 501.9985, L500.4050, L100.0100 ####[facility] [address] [place], [address] Potassium [Moles/Vol] 4.0 mmol/L Normal 3.3-5.1 [facility] Comment on above: Performed By: #### L 501.9985, L500.4050, L100.0100 ####[facility] [address] [place], [address] Sodium [Moles/Vol] 140 mmol/L Normal 133-145 [facility] Comment on above: Performed By: #### L 501.9985, L500.4050, L100.0100 ####[facility] [address] [place], [address] T PROT 7.2 g/dL Normal 5.9-8.4 [facility] Comment on above: Performed By: #### L 501.9985, L500.4050, L100.0100 ####[facility] [address] [place], [address] Urea nitrogen [Mass/Vol] 19 mg/dL Normal 4-19 [facility] Comment on above: Performed By: #### L 501.9985, L500.4050, L100.0100 ####[facility] [address] [place], [address] Eosinophil percentageOrdered By: [facility] Yenny Kauffman on 01-14-2025 Eosinophils/100 WBC (Bld) 1.5 % 0-5 [facility] Erythrocyte distribution wid th ratioOrdered By: [facility] Yenny Kauffman on 01-14-2025 Erythrocyte distribution width (RBC) [Ratio] 14.4 % 11.6-14.6 [facility] Erythrocyte distribution wid th standard deviationOrdered By: [facility] Yenny Kauffman on 01-14-2025 Erythrocyte distribution width (RBC) [Ratio] 44.2 fl High 35.1-43.9 [facility] Glomerular filtration rate ( GFR) estimation/1.73 sq m using serum, plasma, or whole bOrdered By: [facility] Yenny Kauffman on 01-14-2025 GFR/1.73 sq M.predicted among non-blacks MDRD (S/P/Bld) [Vol rate/Area] 102 mL/min/{1.73_m2} >60 [facility] Comment on above: mL/min/1.73m2 CKD-EP I Creatinine Equation (2020) Hematocrit Auto (Bld) [Volum e fraction]Ordered By: [facility] Yenny Kauffman on 01-14-2025 Hematocrit (Bld) [Volume fraction] 44.6 % 37-47 [facility] Hemoglobin A1con 01-14-2025 HbA1c (Bld) [Mass fraction] 6.4 % High <=5.6 [facility] Comment on above: Result Comment: Norm al < 5.7 % Prediabetic 5.7 - 6.4 % Diabetic >or= 6.5 % Please note range changes. Performed By: #### L 501.9985, L500.4050, L100.0100 ####[facility] [address] [place], [address] Hemoglobin A1c percentageOrd ered By: [facility] Yenny Kauffman on 01-14-2025 HbA1c (Bld) [Mass fraction] 6.4 % High <5.7 [facility] Comment on above: Normal < 5.7 % Predi abetic 5.7 - 6.4 % Diabetic >or= 6.5 % Please note range changes. Hemoglobin measurementOrdere d By: [facility] Yenny Kauffman on 01-14-2025 Hemoglobin (Bld) [Mass/Vol] 14.5 g/dL 12.0-15.0 [facility] Immature granulocytes/100 WB C Auto (Bld)Ordered By: [facility] Yenny Kauffman on 01-14-2025 Immature granulocytes/100 WBC (Bld) 0.300 % 0.0-0.9 [facility] Comment on above: IG% - Immature Granu locytes (promyelocytes, myelocytes and metamyelocytes) > 1% indicates that a LEFT SHIFT is Present. Laboratory - Chemistry and C hemistry - challengeOrdered By: [facility] Yenny Kauffman on 01-14-2025 AST [Catalytic activity/Vol] 37 U/L High <32 [facility] MCV (mean corpuscular volume ) determinationOrdered By: [facility] Yenny Kauffman on 01-14-2025 MCV (RBC) [Entitic vol] 85.1 fL 81-99 [facility] Mean corpuscular hemoglobin (MCH) determinationOrdered By: [facility] Yenny Kauffman on 01-14-2025 MCH (RBC) [Entitic mass] 27.7 pg 27.0-32.0 [facility] Mean corpuscular hemoglobin concentration (MCHC) determinationOrdered By: [facility] Yenny Kauffman on 01-14-2025 MCHC (RBC) [Mass/Vol] 32.5 g/dL 32-36 [facility] Mean platelet volume determi nationOrdered By: [facility] Yenny Kauffman on 01-14-2025 Platelet mean volume (Bld) [Entitic vol] 10.3 fL 6.2-12.0 [facility] Monocyte percentageOrdered B y: [facility] Yenny Kauffman on 01-14-2025 Monocytes/100 WBC (Bld) 6.3 % 0-10 [facility] Neutrophil percentageOrdered By: [facility] Yenny Kauffman on 01-14-2025 Neutrophils/100 WBC (Bld) 49.0 % 47-70 [facility] Nucleated red blood cell per centageOrdered By: [facility] Yenny Kauffman on 01-14-2025 Nucleated RBC/100 WBC (Bld) [Ratio] 0 % 0-5 [facility] Platelet countOrdered By: [facility] Yenny Kauffman on 01-14-2025 Platelets (Bld) [#/Vol] 224 10*3/uL 150-450 [facility] Potassium measurement (mass/ volume)Ordered By: [facility] Yenny Kauffman on 01-14-2025 Potassium (Unsp spec) [Mass/Vol] 4.0 mmol/L 3.3-5.1 [facility] RBC Auto (Bld) [#/Vol]Ordere d By: [facility] Yenny Kauffman on 01-14-2025 RBC (Bld) [#/Vol] 5.24 10*6/uL 4.2-5.4 [facility] Serum creatinine measurement (mass/volume)Ordered By: [facility] Yenny Kauffman on 01-14-2025 Creatinine [Mass/Vol] 0.55 mg/dL Low 0.70-1.20 [facility] Serum globulin measurementOr dered By: [facility] Yenny Kauffman on 01-14-2025 Globulin (S) [Mass/Vol] 2.6 g/dL 2.2-4.2 [facility] Serum glucose measurement (m ass/volume)Ordered By: [facility] Yenny Kauffman on 01-14-2025 Glucose [Mass/Vol] 75 mg/dL 70-99 [facility] Serum or plasma alanine coto otransferase (ALT) measurementOrdered By: [facility] Yenny Kauffman on 01-14-2025 ALT [Catalytic activity/Vol] 42 U/L High <35 [facility] Serum or plasma albumin faizan urement (mass/volume)Ordered By: [facility] Yenny Kauffman on 01-14-2025 Albumin [Mass/Vol] 4.6 g/dL 3.4-4.8 [facility] Serum or plasma albumin/glob ulin mass ratioOrdered By: [facility] Yenny Kauffman on 01-14-2025 Albumin/Globulin [Mass ratio] 1.8 {ratio} 0.9-2.4 [facility] Serum or plasma alkaline hillary sphatase measurementOrdered By: [facility] Yenny Kauffman on 01-14-2025 ALP [Catalytic activity/Vol] 120 U/L High 35-104 [facility] Serum or plasma calcium faizan urement (mass/volume)Ordered By: [facility] Yenny Kauffman 01-14-2025 Calcium [Mass/Vol] 9.9 mg/dL 7.6-11.0 [facility] Serum or plasma urea nitroge n measurement (mass/volume)Ordered By: [facility] Yenny Kauffman 01-14-2025 Urea nitrogen [Mass/Vol] 19 mg/dL 4-19 [facility] Sodium levelOrdered By: [facility] Yenny Kauffman on 01-14-2025 Sodium [Moles/Vol] 140 mmol/L 133-145 [facility] Total proteinOrdered By: [facility] Yenny Kauffman 01-14-2025 Protein [Mass/Vol] 7.2 g/dL 5.9-8.4 [facility] White blood cell (WBC) count Ordered By: [facility] Yenny Jamari on 01-14-2025 WBC (Bld) [#/Vol] 6.0 10*3/uL 4.4-11.0 [facility] Urgent Care Visit Reporton 1 Urgent Care Visit Report [facility] [address], [address] [place] [address] OFFICE VISIT Date of Service: 07/03/24 MR#: [id number] Acct: [id number] Name: BRANDI SAUCEDA ASHLEY Rep #: [id number] : 1960 Provider: JOSEPHINE Solano Age/Sex: 64/F Location: [facility] Status: Signed Intake Vital Signs 05/07/24 11:08 07/03/24 13:03 Height 4 ft 8 in BP 140/78 H Blood Pressure Location Lt brachial Position Sitting Respiration 16 Pulse 85 Pulse Source NIBP Temp 98.4 F Temp Source Temporal Pulse Oximetry (%) 97 Oxygen Delivery Method room air Intake Visit Reasons: 1 M FU/WENDYS Chief Complaint: WC f/u right shoulder Vp Revenue Cycle Required: No Is patient in pain?: No Allergies aspirin Allergy (Verified 07/03/24 13:03) Vomiting Is last menstrual period known: No Post menopausal: Yes Patient : No Have you fallen in the past year?: Yes [facility] Medical History (Updated 05/07/24 @ 12:02 by Martín BURTON, PA) Right wrist sprain Contusion of right elbow Right shoulder strain Contusion of left knee Contusion of right knee SOURAV (obstructive sleep apnea) Chronic bronchitis Diabetes GERD (gastroesophageal reflux disease) COPD (chronic obstructive pulmonary disease) Hypertension Migraines Surgical History History of mandibular surgery H/O shoulder surgery H/O: hysterectomy Social History Smoking Status: Former smoker alcohol intake: former substance use type: does not use HPI HPI Chief Complaint: WC f/u right shoulder Details: BRANDI SAUCEDA, is a 64 F who presents to the office today for follow-up of work-related injury. Patient today states that her shoulder pain has nearly completely resolved other than some intermittent minor pain when she reaches above her head or when she is lifting something heavy. Patient does state that she has been completing physical therapy and states that has made quite a bit of difference however she is ready to be done with that. She denies numbness, tingling or loss range of motion to the arm or shoulder. No other associated symptoms or alleviating/aggravati ng factors. ROS Const Constitutional: No other (as above) Exam Const General: cooperative and no acute distress Neck Neck: normal visual inspection, full ROM, no lymphadenopathy, no meningeal signs and supple Neuro General: patient alert, patient awake and patient oriented x3 Extrem General: normal to inspection, full ROM and capillary refill normal Psych Appearance: grossly normal Coding Level of Care Code Off vis,est,level 3 Diagnoses Right shoulder strain S46.911A Contusion of left knee S80.02XA Contusion of right knee S80.01XA Assessment and Plan Assessment and Plan (1) Right shoulder strain: Status: Acute (2) Contusion of left knee: Status: Acute (3) Contusion of right knee: Status: Acute Plan [employer] 14 filled out releasing patient back to work work today without restrictions per her request. Patient advised to continue with stretching exercises as advised to her through physical therapy. Advised to continue with ibuprofen or Tylenol as needed for pain unless contraindicated. Patient verbalized understanding and agreement with all the above. Clinical Quality Measures Falls Risk Screening/Assistive Devices Have you fallen in the past year?: Yes 07/03/24 1622 Date Luís Samuels Signature: Date (if applicable) CC: Normal [facility] HIGH RISK HUMAN PAPILLOMA SOLE (HPV), PCR FOR DETECTION AND GENOTYPINGon 07-01-2024 HPV 16 Ag Ql (Unsp spec) Not detected Normal Not detec thiago [facility] Comment on above: Order Comment: Speci men Type: FLUID SPECIMENOrdering Facility: [facility] Address: [address] [place] [address], [place] [address] Performed By: #### L [id number], HPVHRT ####[facility] [id number] [place] [address] [place] ELISA HPV 18 Ag Ql (Unsp spec) Not detected Normal Not detec thiago [facility] Comment on above: Order Comment: Speci men Type: FLUID SPECIMENOrdering Facility: [facility] Address: [address] [place] [address] Performed By: #### L [id number], HPVHRT ####[facility] [id number] [place] [address] [place] ELISA HPV 31+33+35+39+45+51+52+56+ 58+59+66+68 DNA JIMMY+probe Ql (Cvx) Not detected Normal Not detected [facility] Comment on above: Order Comment: Speci men Type: FLUID SPECIMENOrdering Facility: [facility] Address: [address] [place] [address] Result Comment: High Risk HPV Other Type includes HPV types 31, 33, 35, 39, 45, 51, 52, 56, 58, 59, 66 and 68. Performed By: #### L [id number], HPVHRT ####[facility] [id number] [place] [address] [place] ELISA PAP TESTon 07-01-2024 ADEQUACY Normal [facility] Comment on above: Order Comment: Speci men Type: FLUID SPECIMENOrdering Facility: [facility] Address: [address] [place] [address] Result Comment: Sati sfactory for interpretation. Limited cellularity due to acellular background material Performed By: #### L [id number], HPVHRT ####[facility] [id number] [place] [address] [place] ELISA CASE REPORT Normal [facility] Comment on above: Order Comment: Speci men Type: FLUID SPECIMENOrdering Facility: [facility] Address: [address] [place] [address] Result Comment: Gyne cologic Cytology Report Case: [id number] Authorizing Provider: Yenny Kauffman NP Collected: 07/01/2024 11:30 AM Ordering Location: [facility] Received: 07/02/2024 12:50 PM [facility] First Screen: Devika, Livia, CT, ASCP Rescreen: Anila, Gabriel, CT, ASCP Specimen: Pap Test, ThinPrep, Vagina Performed By: #### L [id number], HPVHRT ####[facility] [id number] [place] [address] [place] ELISA CLINICAL HISTORY, CYTOLOGY, STORE STANDARDS ASSOCIATE Post Menopausal Normal [facility] Comment on above: Order Comment: Speci men Type: FLUID SPECIMENOrdering Facility: [facility] Address: [address] [place] [address] Result Comment: Prev ious pap: 02/15/2023 (insufficient) Hysterectomy (subtotal) Performed By: #### L [id number], HPVHRT ####[facility] [id number] [address] OF ELISA FINAL PERFORMING LAB Normal [facility] Comment on above: Order Comment: Speci men Type: FLUID SPECIMENOrdering Facility: [facility] Address: [address] [place] [address] Result Comment: Tech nical component, requirements engineer screening performed at [facility], [facility] [place] [id number] CLIA# [id number] Diagnostic interpretation performed at [facility], [address] [id number] CLIA# [id number] Coremaker Helper: Luke Gilbert M.D. Performed By: #### L [id number], HPVHRT ####[facility] [id number] [place] [address] [place] HPV REFLEX Yes HPV Normal [facility] Comment on above: Order Comment: Speci men Type: FLUID SPECIMENOrdering Facility: [facility] Address: [address] [place] [address] Performed By: #### L [id number], HPVHRT ####[facility] [id number] [place] [id number] [place] ELISA INTERPRETATION, CYTOLOGY, STORE STANDARDS ASSOCIATE Normal [facility] Comment on above: Order Comment: Speci men Type: FLUID SPECIMENOrdering Facility: [facility] Address: [address] [place] [address] Result Comment: Nega tive for intraepithelial lesion or malignancy. Performed By: #### L [id number], HPVHRT ####[facility] [id number] [place] [address] [place] PAP DISCLAIMER COMMENT The Pap Smear is a screening test for cervical cancer. False negative results occur with all screening tests, emphasizing the need for rescreening at recommended intervals, and clinical correlation. Normal [facility] Comment on above: Order Comment: Speci men Type: FLUID SPECIMENOrdering Facility: [facility] Address: [address] [place] [address] Performed By: #### L [id number], HPVHRT ####[facility] [id number] [place] [address] [place] PAP TAXONOMIST COMMENT This specimen has been analyzed by the ThinPrep Imaging System, an automated imaging and review system, which assists the laboratory in evaluating cells on ThinPrep Pap tests. Following automated imaging, selected poole from every slide are reviewed by a requirements engineer. Normal [facility] Comment on above: Order Comment: Speci men Type: FLUID SPECIMENOrdering Facility: [facility] Address: [address] [place] [address], [place] [address] Performed By: #### L [id number], HPVHRT ####[facility] [id number] [facility] [address] [address] [place] ELISA CBC W/Diff, Automatedon - Absolute Lymph 2.13 X10 3/uL Normal 0.83-4.51 [facility] Comment on above: Order Comment: ADDON PLEASE Performed By: #### L 506.1000, L503.0105, L501.9985, L500.4050, L100.0100, L500.4100, L501.9520 ####[facility] [address] [place], [address] Absolute Neut 3.3 X10 3/uL Normal 2.0-7.7 [facility] Comment on above: Order Comment: ADDON PLEASE Performed By: #### L 506.1000, L503.0105, L501.9985, L500.4050, L100.0100, L500.4100, L501.9520 ####[facility] [address] [place], [address] Basophils/100 WBC (Bld) 0.8 % Normal 0-1 [facility] Comment on above: Order Comment: ADDON PLEASE Performed By: #### L 506.1000, L503.0105, L501.9985, L500.4050, L100.0100, L500.4100, L501.9520 ####[facility] [address] [place], [address] Eosinophils/100 WBC (Bld) 1.8 % Normal 0-5 [facility] Comment on above: Order Comment: ADDON PLEASE Performed By: #### L 506.1000, L503.0105, L501.9985, L500.4050, L100.0100, L500.4100, L501.9520 ####[facility] [address] [place], [address] Erythrocyte distribution width (RBC) [Ratio] 14.3 % Normal 11.6-14.6 [facility] Comment on above: Order Comment: ADDON PLEASE Performed By: #### L 506.1000, L503.0105, L501.9985, L500.4050, L100.0100, L500.4100, L501.9520 ####[facility] [address] [place], [address] Hematocrit (Bld) [Volume fraction] 44.7 % Normal 37-47 [facility] Comment on above: Order Comment: ADDON PLEASE Performed By: #### L 506.1000, L503.0105, L501.9985, L500.4050, L100.0100, L500.4100, L501.9520 ####[facility] [address] [place], [address] Hemoglobin (Bld) [Mass/Vol] 14.3 g/dL Normal 12.0-15.0 [facility] Comment on above: Order Comment: ADDON PLEASE Performed By: #### L 506.1000, L503.0105, L501.9985, L500.4050, L100.0100, L500.4100, L501.9520 ####[facility] [address] [place], [address] IG% 0.500 Normal 0.0-0.9 [facility] Comment on above: Order Comment: ADDON PLEASE Result Comment: IG% - Immature Granulocytes (promyelocytes, myelocytes and metamyelocytes) > 1% indicates that a LEFT SHIFT is Present. Performed By: #### L 506.1000, L503.0105, L501.9985, L500.4050, L100.0100, L500.4100, L501.9520 ####[facility] [address] [place], [address] Lymphocytes/100 WBC (Bld) 35.8 % Normal 19-41 [facility] Comment on above: Order Comment: ADDON PLEASE Performed By: #### L 506.1000, L503.0105, L501.9985, L500.4050, L100.0100, L500.4100, L501.9520 ####[facility] [address] [place], [address] MCH (RBC) [Entitic mass] 27.7 pg Normal 27.0-32.0 [facility] Comment on above: Order Comment: ADDON PLEASE Performed By: #### L 506.1000, L503.0105, L501.9985, L500.4050, L100.0100, L500.4100, L501.9520 ####[facility] [address] [place], [address] MCHC (RBC) [Mass/Vol] 32.0 g/dL Normal 32-36 [facility] Comment on above: Order Comment: ADDON PLEASE Performed By: #### L 506.1000, L503.0105, L501.9985, L500.4050, L100.0100, L500.4100, L501.9520 ####[facility] [address] [place], [address] MCV (RBC) [Entitic vol] 86.6 fL Normal 81-99 [facility] Comment on above: Order Comment: ADDON PLEASE Performed By: #### L 506.1000, L503.0105, L501.9985, L500.4050, L100.0100, L500.4100, L501.9520 ####[facility] [address] [place], [address] Monocytes/100 WBC (Bld) 5.0 % Normal 0-10 [facility] Comment on above: Order Comment: ADDON PLEASE Performed By: #### L 506.1000, L503.0105, L501.9985, L500.4050, L100.0100, L500.4100, L501.9520 ####[facility] [address] [place], [address] Neutrophils/100 WBC (Bld) 56.1 % Normal 47-70 [facility] Comment on above: Order Comment: ADDON PLEASE Performed By: #### L 506.1000, L503.0105, L501.9985, L500.4050, L100.0100, L500.4100, L501.9520 ####[facility] [address] [place], [address] Nucleated RBC (Bld) [#/Vol] 0 10*3/uL Normal 0-5 [facility] Comment on above: Order Comment: ADDON PLEASE Performed By: #### L 506.1000, L503.0105, L501.9985, L500.4050, L100.0100, L500.4100, L501.9520 ####[facility] [address] [place], [address] Platelet mean volume (Bld) [Entitic vol] 11.2 fL Normal 6.2-12.0 [facility] Comment on above: Order Comment: ADDON PLEASE Performed By: #### L 506.1000, L503.0105, L501.9985, L500.4050, L100.0100, L500.4100, L501.9520 ####[facility] [address] [place], [address] Platelets (Bld) [#/Vol] 215 10*3/uL Normal 150-450 [facility] Comment on above: Order Comment: ADDON PLEASE Performed By: #### L 506.1000, L503.0105, L501.9985, L500.4050, L100.0100, L500.4100, L501.9520 ####[facility] [address] [place], [address] RBC (Bld) [#/Vol] 5.16 10*6/uL Normal 4.2-5.4 [facility] Comment on above: Order Comment: ADDON PLEASE Performed By: #### L 506.1000, L503.0105, L501.9985, L500.4050, L100.0100, L500.4100, L501.9520 ####[facility] [address] [place], [address] RDW SD 45.5 fl High 35.1-43.9 [facility] Comment on above: Order Comment: ADDON PLEASE Performed By: #### L 506.1000, L503.0105, L501.9985, L500.4050, L100.0100, L500.4100, L501.9520 ####[facility] [address] [place], [address] WBC (Bld) [#/Vol] 6.0 10*3/uL Normal 4.4-11.0 [facility] Comment on above: Order Comment: ADDON PLEASE Performed By: #### L 506.1000, L503.0105, L501.9985, L500.4050, L100.0100, L500.4100, L501.9520 ####[facility] [address] [place], [address] Comprehensive Metabolic Prof ilon 06-18-2024 Albumin [Mass/Vol] 3.9 g/dL Normal 3.2-5.0 [facility] Comment on above: Order Comment: CBCD Performed By: #### L 506.1000, L503.0105, L501.9985, L500.4050, L100.0100, L500.4100, L501.9520 #### [facility] [address] [place], [address] Albumin/Globulin [Mass ratio] 1.3 {ratio} Normal 0.9-2.4 [facility] Comment on above: Order Comment: CBCD Performed By: #### L 506.1000, L503.0105, L501.9985, L500.4050, L100.0100, L500.4100, L501.9520 #### [facility] [address] [place], [address] ALK P 113 U/L Normal 45-117 [facility] Comment on above: Order Comment: CBCD Performed By: #### L 506.1000, L503.0105, L501.9985, L500.4050, L100.0100, L500.4100, L501.9520 #### [facility] [address] [place], [address] ALT [Catalytic activity/Vol] 32 U/L Normal 13-56 [facility] Comment on above: Order Comment: CBCD Performed By: #### L 506.1000, L503.0105, L501.9985, L500.4050, L100.0100, L500.4100, L501.9520 #### [facility] [address] [place], [address] AST [Catalytic activity/Vol] 19 U/L Normal 15-37 [facility] Comment on above: Order Comment: CBCD Performed By: #### L 506.1000, L503.0105, L501.9985, L500.4050, L100.0100, L500.4100, L501.9520 #### [facility] [address] [place], [address] Bilirubin [Mass/Vol] 0.80 mg/dL Normal 0.20-1.00 [facility] Comment on above: Order Comment: CBCD Result Comment: For patients on eltrombopag therapy, use of Dimension [place] TBIL is not recommended. Performed By: #### L 506.1000, L503.0105, L501.9985, L500.4050, L100.0100, L500.4100, L501.9520 #### [facility] [address] [place], [address] BUN/CRE 48.2 RATIO High 10-20 [facility] Comment on above: Order Comment: CBCD Performed By: #### L 506.1000, L503.0105, L501.9985, L500.4050, L100.0100, L500.4100, L501.9520 #### [facility] [address] [place], [address] CA,Total 9.3 mg/dL Normal 8.5-10.1 [facility] Comment on above: Order Comment: CBCD Performed By: #### L 506.1000, L503.0105, L501.9985, L500.4050, L100.0100, L500.4100, L501.9520 #### [facility] [address] [place], [address] Chloride [Moles/Vol] 109 mmol/L High 98-107 [facility] Comment on above: Order Comment: CBCD Performed By: #### L 506.1000, L503.0105, L501.9985, L500.4050, L100.0100, L500.4100, L501.9520 #### [facility] [address] [place], [address] CO2 [Moles/Vol] 26.0 mmol/L Normal 21.0-32.0 [facility] Comment on above: Order Comment: CBCD Performed By: #### L 506.1000, L503.0105, L501.9985, L500.4050, L100.0100, L500.4100, L501.9520 #### [facility] [address] [place], [address] Creatinine [Mass/Vol] 0.48 mg/dL Low 0.55-1.02 [facility] Comment on above: Order Comment: CBCD Result Comment: The validity of the calculated GFR GFRAA in patients over 70 years has not been determined. Clinical correlation is essential. Performed By: #### L 506.1000, L503.0105, L501.9985, L500.4050, L100.0100, L500.4100, L501.9520 #### [facility] [address] [place], [place], [phone] (657) EST GFR - AA 168 mL/min Normal >60 [facility] Comment on above: Order Comment: CBCD Result Comment: Afri can Brazilian GFR Calc Performed By: #### L 506.1000, L503.0105, L501.9985, L500.4050, L100.0100, L500.4100, L501.9520 #### [facility] [address] [place], [place], [id number] GAP 6 Normal 5-15 [facility] Comment on above: Order Comment: CBCD Performed By: #### L 506.1000, L503.0105, L501.9985, L500.4050, L100.0100, L500.4100, L501.9520 #### [facility] [address] [place], [place], [phone] GFR/1.73 sq M.predicted among non-blacks MDRD (S/P/Bld) [Vol rate/Area] 139 mL/min/{1.73_m2} Normal >60 [facility] Comment on above: Order Comment: CBCD Result Comment: Non- GFR Calc Performed By: #### L 506.1000, L503.0105, L501.9985, L500.4050, L100.0100, L500.4100, L501.9520 #### [facility] [address] [place], [place], [phone] Globulin (S) [Mass/Vol] 3.0 g/dL Normal 2.2-4.2 [facility] Comment on above: Order Comment: CBCD Performed By: #### L 506.1000, L503.0105, L501.9985, L500.4050, L100.0100, L500.4100, L501.9520 #### [facility] [address] [place], [address] Glucose [Mass/Vol] 94 mg/dL Normal 74-106 [facility] Comment on above: Order Comment: CBCD Performed By: #### L 506.1000, L503.0105, L501.9985, L500.4050, L100.0100, L500.4100, L501.9520 #### [facility] [address] [place], [address] Potassium [Moles/Vol] 4.0 mmol/L Normal 3.5-5.1 [facility] Comment on above: Order Comment: CBCD Performed By: #### L 506.1000, L503.0105, L501.9985, L500.4050, L100.0100, L500.4100, L501.9520 #### [facility] [address] [place], [address] Sodium [Moles/Vol] 141 mmol/L Normal 136-145 [facility] Comment on above: Order Comment: CBCD Performed By: #### L 506.1000, L503.0105, L501.9985, L500.4050, L100.0100, L500.4100, L501.9520 #### [facility] [address] [place], [address] T PROT 6.9 g/dL Normal 6.4-8.2 [facility] Comment on above: Order Comment: CBCD Performed By: #### L 506.1000, L503.0105, L501.9985, L500.4050, L100.0100, L500.4100, L501.9520 #### [facility] [address] [place], [address] Urea nitrogen [Mass/Vol] 23 mg/dL High 7-18 [facility] Comment on above: Order Comment: CBCD Performed By: #### L 506.1000, L503.0105, L501.9985, L500.4050, L100.0100, L500.4100, L501.9520 #### [facility] [address] [place], [address] Hemoglobin A1con 06-18-2024 HbA1c (Bld) [Mass fraction] 6.0 % High 3.8-5.6 [facility] Comment on above: Result Comment: Norm al < 5.7 % Prediabetic 5.7 - 6.4 % Diabetic >or= 6.5 % Please note range changes. Performed By: #### L 506.1000, L503.0105, L501.9985, L500.4050, L100.0100, L500.4100, L501.9520 #### [facility] [address] [place], [address] Lipid Profileon 06-18-2024 Cholesterol [Mass/Vol] 161 mg/dL Normal 200 [facility] Comment on above: Order Comment: CBCD Result Comment: <200 mg/dL Desirable 200-240 mg/dL Borderline >240 mg/dL High Risk Performed By: #### L 506.1000, L503.0105, L501.9985, L500.4050, L100.0100, L500.4100, L501.9520 #### [facility] [address] [place], [address] Cholesterol in HDL [Mass/Vol] 57 mg/dL Normal [facility] Comment on above: Order Comment: CBCD Result Comment: The drugs N-Acetylcysteine and Metamizole may falsely depress this assay. Reference Range HDL <40 mg/dL Low HDL Cholesterol HDL >or= 60 mg/dL High HDL Cholesterol Performed By: #### L 506.1000, L503.0105, L501.9985, L500.4050, L100.0100, L500.4100, L501.9520 #### [facility] [address] [place], [address] Cholesterol in LDL [Mass/Vol] 75 mg/dL Normal 0-130 [facility] Comment on above: Order Comment: CBCD Performed By: #### L 506.1000, L503.0105, L501.9985, L500.4050, L100.0100, L500.4100, L501.9520 #### [facility] [address] [place], [address] Cholesterol in VLDL [Mass/Vol] 29 mg/dL Normal 5-40 [facility] Comment on above: Order Comment: CBCD Performed By: #### L 506.1000, L503.0105, L501.9985, L500.4050, L100.0100, L500.4100, L501.9520 #### [facility] [address] [facility] [address] [place], [place], [phone] Triglyceride [Mass/Vol] 145 mg/dL Normal [facility] Comment on above: Order Comment: CBCD Result Comment: The drugs N-Acetylcysteine and Metamizole may falsely depress this assay. Serum Triglycerides Reference Interval Normal <150 mg/dL Borderline high 150 - 199 mg/dL High 200 - 499 mg/dL Very High > or = 500 mg/dL Performed By: #### L 506.1000, L503.0105, L501.9985, L500.4050, L100.0100, L500.4100, L501.9520 #### [facility] [address] [place], [address] Thyroid Stim Hormone (TSH)on 06-18-2024 TSH 2.370 uIU/mL Normal 0.358-3.740 [facility] Comment on above: Order Comment: CBCD Performed By: #### L 506.1000, L503.0105, L501.9985, L500.4050, L100.0100, L500.4100, L501.9520 #### [facility] [address] [place], [place], [address] Vitamin B12on 06-18-2024 Cobalamin (Vitamin B12) [Mass/Vol] 808 pg/mL Normal 211-911 [facility] Comment on above: Performed By: #### L 506.1000, L503.0105, L501.9985, L500.4050, L100.0100, L500.4100, L501.9520 #### [facility] [address] [place], [place], [phone] Vitamin D,25 Hydroxyon 06-18 Vitamin D 25-OH 46.7 ng/mL Normal [facility] Comment on above: Result Comment: Lynda min D 25(OH) Status Range Deficiency <20 ng/mL (50nmol/L) Insufficiency 20 - 30 ng/mL (50 - 75 nmol/L) Sufficiency 30 - 100 ng/mL (75 - 250 nmol/L) Toxicity >100 ng/mL (>250 nmol/L) Performed By: #### L 506.1000, L503.0105, L501.9985, L500.4050, L100.0100, L500.4100, L501.9520 #### [facility] [address] [place], [place], [address] Urgent Care Visit Reporton 0 06-05-2024 Urgent Care Visit Report [facility] [address], [address] [place], [place] [address] OFFICE VISIT Date of Service: 06/05/24 MR#: [id number] Acct: [id number] Name: BRANDI SAUCEDA ASHLEY Rep #: [id number] : 1960 Provider: JOSEPHINE Issa Age/Sex: 64/F Location: [facility] Status: Signed Intake Vital Signs 05/07/24 11:08 06/05/24 13:12 Height 4 ft 8 in BP 138/82 H Blood Pressure Location Lt brachial Position Sitting Respiration 17 Pulse 88 Pulse Source NIBP Temp 98.4 F Temp Source Temporal Pulse Oximetry (%) 96 Oxygen Delivery Method room air Intake Visit Reasons: 2 W FU/WENDYS Chief Complaint: WC f/u right shoulder Vp Revenue Cycle Required: No Is patient in pain?: Yes Allergies aspirin Allergy (Verified 06/05/24 13:13) Vomiting Is last menstrual period known: No Post menopausal: Yes Patient : No Have you fallen in the past year?: Yes [facility] Medical History (Updated 05/07/24 @ 12:02 by Martín Webb PA, PA) Right wrist sprain Contusion of right elbow Right shoulder strain Contusion of left knee Contusion of right knee SOURAV (obstructive sleep apnea) Chronic bronchitis Diabetes GERD (gastroesophageal reflux disease) COPD (chronic obstructive pulmonary disease) Hypertension Migraines Surgical History History of mandibular surgery H/O shoulder surgery H/O: hysterectomy Social History Smoking Status: Former smoker alcohol intake: former substance use type: does not use HPI HPI Chief Complaint: WC f/u right shoulder Details: BRANDI SAUCEDA, is a 64 F who presents to the office today for follow-up status post work-related injury suffered on 04/14/2024. Patient states on date of injury while at work losing footing tripping falling landing on both knees and RUE. She reported [facility] ED same day where she was treated and released with diagnosis of right shoulder strain and bilateral knee contusions. Since her last evaluation here 1 wk ago, she persistent right shoulder pain which is improving, and right elbow (lateral epicondyle) tenderness nearly resolved - and still has no cervical complaints or upper extremity radicular complaints. She notes both knees and right wrist symptoms have resolved. She notes right shoulder is still aggravated to touch and with range of motion, alleviated with rest and isolation. She notes no longer working as she has retired effective 2024. PMH NC. Lkoqt-biei-xdnfvepk. No exta-dwp-rbjaqqo products taken with assist. No other associated symptoms and no other alleviating/aggravati ng factors. ROS Const Constitutional: No other (as above) Exam Const General: cooperative, healthy appearing and no acute distress Orientation: alert and awake HENMT Head: normal to inspection Ears: hearing grossly normal bilaterally and external ears normal Nose: external nose normal Eyes General: appearance normal, both eyes and all related structures Neck Neck: normal visual inspection, full ROM, no lymphadenopathy, no meningeal signs and supple Resp Effort Inspection: normal respiratory effort and able to speak in complete sentences Cardio Rate: regular rate Pulses: radial pulses present GI Inspection: normal to inspection Skin General: no rashes or lesions noted Neuro General: patient alert, patient awake and patient oriented x3 Cognition: normal cognition Speech: speech normal Extrem General: normal to inspection, capillary refill normal and normal exam except as noted (see Other) Other: Left knee and right knee: Unguarded FAROM with unguarded ambulation appreciated. Right shoulder: Limited range of motion though improved to all (w/ trace tender to palpation anterior/ACJ/posterio r shoulder. Right elbow/ wrist: minimally Guarded FAROM Psych Appearance: grossly normal Mental Status: mental status grossly normal Mood: congruent mood Affect: normal affect Speech and Movement: speech and movement normal Attitude: cooperative Diagnoses Contusion of right knee S80.01XA Contusion of left knee S80.02XA Right shoulder strain S46.911A Assessment and Plan Assessment and Plan (1) Contusion of right knee: Status: Acute (2) Contusion of left knee: Status: Acute (3) Right shoulder strain: Status: Acute Plan: See unchanged work restrictions, limiting work to 4 hours/day / 20 hours/week as noted on today's [employer] (machine today she plans on retiring effective 2024). Reinforce supportive measures including acetaminophen and NSAIDs as tolerated along with passive range of motion exercises as discussed again today. Continue physical therapy to evaluate and treat. [facility] in approximately 4 wee (more content not included)... Normal [facility] Inital Evaluation (1) - PTon 05-30-2024 Inital Evaluation (1) - PT [facility] Physical Therapy [facility] [place] [address] / REHABILITATION SERVICES INITIAL EVALUATION MR#: [id number] Acct: [id number] Name: BRANDI SAUCEDA Rep #: [id number] : 1960 63 From: Poncho Salgado PT, Cert. T, OCS Referring Dr.: JOSEPHINE Issa Status: REG R CR Insurance: SELF INS [facility] [employer] SELF PAY INSURANCE Patient's Visit Information Visit Information Visit Information: BRANDI SAUCEDA is a 63 year old F referred to Physical Therapy by JOSEPHINE Issa with a diagnosis of STRAIN OF UNSPECIFIED MUSCLE ,FASCIA AND TENDON AT SHOULDER. Date of Evaluation: 05/30/24 Physical Therapist: Poncho Salgado, PT, Cert MDT, OCS Visit Plan Frequency: 2x /Week Duration: 4 Weeks Plan: POSSIBLE RTC TEAR PT INTERVENTIONS GRADED RTC STRENGTHENING ,SCAPULAR STRENGTHENING ,POSTURAL EX'S , ROM AND MODALITIES FOR PAIN Subjective Subjective: This 63 y/o female presents to physical therapy with right shoulder pain. Patient injury shoulder fell forward at work April 14. Patient went to ER at [facility] x-rays -.Recommended anibal seen [facility] who recommended PT x-rays-. Patient is on light duty with 4 hours /day. Patient pain global right shoulder . Described as sharp pain ache in lateral deltoid. Aggravating raises arm OH and lifting affects job demands and housework. Alleviating factors rest. Patient pain affects sleeping wakes patient up . Denies parestehesia/tingling -. Patient condition affects QOL and job demands/housework tasks. Patient goals to get stronger and no pain right shoulder. 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 Pain Right Shoulder: Pain Intensity (Out of 10): 8 Pain Intensity Range: 10 Objective Objective: POSTURE: mild forward posture PALPATION: tender AC NEURO: denies paresthesia/tingling AROM: shoulder flexion 110 degrees pain ,abduction 110 degrees pain ,ER 80 degrees ,IR S1 MMT: ( peak force) infraspinatus 3.9 weak ,supraspinatus 4.9 ,deltoid 4.3 ,subscapularis 12.2 Special Tests R Shoulder External Rotation Lag Test - RC Tear: Positive R Shoulder Drop Sign - IS Test: Negative R Shoulder Empty Can - SS: Positive R Shoulder Belly Press - SupScap: Negative R Shoulder Neer - Impingement: Positive R Shoulder Jalloh Dominguez - Impingement: Positive R Shoulder O'Briens - SLAP/A-C: Positive Balance/Special Test Scores Quick DASH Score: 61.3625 Goals Goal 1:: Patient to be I with HEP for shoulder Goal Time Frame: 4-6 Weeks Goal 2:: Patient to demonstrate 50% improvement with improve ROM and strength with less pain Goal Time Frame: 4-6 Weeks Goal 3:: Patient to improve peak force RTC and deltoid by 5-10# strength to improve function Goal Time Frame: 4-6 Weeks Goal 4:: Patient to improve AROM shoulder flexion/abduction by130 degrees to reach in cupboard Goal Time Frame: 4-6 Weeks Goal 5:: Patient to improve quick dash by 5 points to improve QOL Goal Time Frame: 4-6 Weeks Rehabilitation Potential Physical Therapy Diagnosis: This patient has right shoulder pain with possible tear of infraspinatus due to weakness and pain with ROM and weakness affecting OH activity and ADLS thus benefit from skilled PT Rehabilitation Potential: Good Anticipated Interventions Patient/Client Instruction: Educate patient on: Condition and Plan of Care For the Purpose of:: To decrease pain, To increase ROM, To improve muscle performance and motor function, To improve ability to perform ADL's, To increase tolerance to activity/condition/po sition, To improve ability of physical actions for home/community/work/l eisure, To improve health of tissue, To decrease soft tissue restriction, To increase flexibility/ROM, To reduce risk of recurrence, To prevent re-injury and To improve tolerance to ADL's Therapeutic Exercise to Include: Strength training, Postural training, Flexibilty training, Active ROM and Scapular Strength/Stabilizatio n Comment: RTC For the Purpose of:: To decrease pain, To increase ROM, To improve muscle performance and motor function, To improve ability to perform ADL's, To increase tolerance to activity/condition/po sition, To improve ability of physical actions for home/community/work/l eisure, To decrease soft tissue restriction, To prevent re-injury and To improve tolerance to ADL's TENS: Yes IF ES: Yes Cryotherapy (ice pack, ice massage): Yes Thermo therapy (hot pack): Yes Ultrasound (thermal/non thermal): Yes For the Purpose of:: To decrease pain, To increase ROM, To improve nutrient delivery to tissue, To increase oxygenation perfusion, To improve health of tissue and To decrease soft tissue restriction Text: Thank you for the opportunity to evaluate your patient. For Medicare and Medicare HMO plans, please review the plan of care and approve it. It will need to be FAXED BACK to us at [phone] (more content not included)... Normal [facility] Urgent Care Visit Reporton 0 05-21-2024 Urgent Care Visit Report [facility] [address], [address] [place], [place] [address] OFFICE VISIT Date of Service: 05/21/24 MR#: [id number] Acct: [id number] Name: BRANDI SAUCEDA Rep #: [id number] : 1960 Provider: JOSEPHINE Issa Age/Sex: 63/F Location: [facility] Status: Signed Intake Vital Signs 05/07/24 11:08 05/21/24 09:59 Height 4 ft 8 in Weight: 191 lb BMI 42.8 BP 132/92 H 138/90 H Blood Pressure Location Lt brachial Lt brachial Position Sitting Sitting Respiration 16 18 Pulse 87 82 Pulse Source Monitor NIBP Temp 98.2 F 98.4 F Temp Source Temporal Temporal Pulse Oximetry (%) 91 96 Oxygen Delivery Method room air room air Intake Visit Reasons: 2 W FU / WENDYS Chief Complaint: WC f/u right shoulder Vp Revenue Cycle Required: No Is patient in pain?: Yes Allergies aspirin Allergy (Verified 05/21/24 10:00) Vomiting Is last menstrual period known: No Post menopausal: Yes Patient : No Have you fallen in the past year?: Yes [facility] Medical History (Updated 05/07/24 @ 12:02 by Martín BURTON, PA) Right wrist sprain Contusion of right elbow Right shoulder strain Contusion of left knee Contusion of right knee SOURAV (obstructive sleep apnea) Chronic bronchitis Diabetes GERD (gastroesophageal reflux disease) COPD (chronic obstructive pulmonary disease) Hypertension Migraines Surgical History History of mandibular surgery H/O shoulder surgery H/O: hysterectomy Social History Smoking Status: Former smoker alcohol intake: former substance use type: does not use HPI HPI Chief Complaint: WC f/u right shoulder Details: BRANDI SAUCEDA, is a 63 F who presents to the office today for follow-up status post work-related injury suffered on 04/14/2024. Patient states on date of injury while at work losing footing tripping falling landing on both knees and RUE. She reported [facility] ED same day where she was treated and released with diagnosis of right shoulder strain and bilateral knee contusions. Since her last evaluation here 1 wk ago, she persistent right shoulder and right elbow (lateral epicondyle) tenderness persists though still has no cervical complaints or upper extremity radicular complaints. She notes both knees and right wrist symptoms have resolved. She notes right shoulder/elbow are still aggravated to touch and with range of motion (the ROM to both improving she admits), alleviated with minimally with rest and isolation. She notes working within the work restrictions without difficulty, noting the reduced hours has definitely helped. PMH NC. [place]-gvlu-xegxvrrm. No gvyg-qzf-mnrmnha products taken with assist. No other associated symptoms and no other alleviating/aggravati ng factors. ROS Const Constitutional: No other (as above) Exam Const General: cooperative, healthy appearing and no acute distress Orientation: alert and awake HENMT Head: normal to inspection Ears: hearing grossly normal bilaterally and external ears normal Nose: external nose normal Eyes General: appearance normal, both eyes and all related structures Neck Neck: normal visual inspection, full ROM, no lymphadenopathy, no meningeal signs and supple Resp Effort Inspection: normal respiratory effort and able to speak in complete sentences Cardio Rate: regular rate Pulses: radial pulses present GI Inspection: normal to inspection Skin General: no rashes or lesions noted Neuro General: patient alert, patient awake and patient oriented x3 Cognition: normal cognition Speech: speech normal Extrem General: normal to inspection, capillary refill normal and normal exam except as noted (see Other) Other: Left knee and right knee: Unguarded FAROM with unguarded ambulation appreciated. Right shoulder: Limited range of motion though improved to all (w/ tender to palpation anterior/ACJ/posterio r shoulder. Right elbow: Guarded limited range of motion with mild tender to palpation lateral epicondyle with right elbow pain exacerbated with elbow flexion and wrist pronation/supination. Right wrist: Guarded FAROM of the same with guarded 4+/5 mercury cell cleaner strength due to discomfort Psych Appearance: grossly normal Mental Status: mental status grossly normal Mood: congruent mood Affect: normal affect Speech and Movement: speech and movement normal Attitude: cooperative Coding Level of Care Code Off vis,new,level 4 Diagnoses Contusion of right knee S80.01XA Contusion of left knee S80.02XA Right shoulder strain S46.911A Assessment and Plan Assessment and Plan (1) Contusion of right knee: Status: Acute (2) Contusion of left knee: Status: Acute (3) Right shoulder (more content not included)... Normal [facility] Elbow min 3 Viewson 05-07-20 24 Elbow min 3 Views [facility] Imaging Services [address] [place] [address] Elbow min 3 Views MR#: [id number] Acct: [id number] Name: BRANDI SAUCEDA Rep #: [id number] : 1960 F 63 From: Geovanny mackenzie MD PCP: [facility] Status: REG CLI Study: Elbow min 3 Views Date of Exam: 05/07/24 Exam# [id number] Ordering Dr: Martín Webb [id number] STUDY: X-RAY - RIGHT ELBOW REASON FOR EXAM: Female, 63 years old. Fall TECHNIQUE: 3 view(s) of the elbow. COMPARISON: None. FINDINGS: Normal visualized humerus, radius and ulna. Normal radiocapitellar and ulnotrochlear articulations. The soft tissue structures are unremarkable. RAD/Elbow min 3 Views IMPRESSION: Normal x-ray examination of the elbow. Electronically Signed: Geovanny Kent MD at 11:50 EDT , CC: JOSEPHINE Issa; [facility] Editor Map: Signed Normal [facility] Urgent Care Visit Reporton 0 05-07-2024 Urgent Care Visit Report [facility] [address], [address] [place] [address] OFFICE VISIT Date of Service: 05/07/24 MR#: [id number] Acct: [id number] Name: BRANDI SAUCEDA Rep #: [id number] : 1960 Provider: JOSEPHINE Issa Age/Sex: 63/F Location: [facility] Status: Signed Intake Vital Signs 04/14/24 16:39 05/07/24 11:08 Height 4 ft 8 in 4 ft 8 in Weight: 191 lb BMI 42.8 BP 132/92 H Blood Pressure Location Lt brachial Position Sitting Respiration 16 Pulse 87 Pulse Source Monitor Temp 98.2 F Temp Source Temporal Pulse Oximetry (%) 91 Oxygen Delivery Method room air Intake Visit Reasons: ED follow up/ WENDYS Chief Complaint: C ED F/U Vp Revenue Cycle Required: No Accompanied by: Self Is patient in pain?: Yes Allergies aspirin Allergy (Verified 05/07/24 11:09) Vomiting Medications ???Medication ???Instructions ???Recorded ???Confirmed ???Type ergocalciferol (vitamin D2) 1,250 1 cap PO FR SUPPLEMENT 01/21/20 05/07/24 History mcg (50,000 unit) capsule lisinopril 10 mg tablet 20 mg PO DAILY blood pressure 01/21/20 05/07/24 History montelukast 10 mg tablet 10 mg PO DAILY@1700 ALLERGIES 01/21/20 05/07/24 History ascorbic acid (vitamin C) 500 mg 500 mg PO DAILY vitamin 09/07/22 05/07/24 History tablet (Vitamin C) cyclobenzaprine 5 mg tablet 5 mg PO QHS pain 01/20/23 05/07/24 History atorvastatin 20 mg tablet 20 mg PO QHS #30 tabs 01/21/23 05/07/24 Rx loratadine 10 mg tablet 10 mg PO DAILY@1700 PRN allergy 30 01/21/23 05/07/24 Rx days #0 tabs aspirin 81 mg tablet,delayed 81 mg PO DAILY 03/15/23 05/07/24 History release pantoprazole 40 mg tablet,delayed 40 mg PO QAM #90 tabs 03/15/23 05/07/24 Rx release sucralfate 1 gram tablet 1 g PO BID #60 tabs 01/29/24 05/07/24 Rx [facility] Medical History (Updated 05/07/24 @ 12:02 by Martín BURTON, PA) Right wrist sprain Contusion of right elbow Right shoulder strain Contusion of left knee Contusion of right knee SOURAV (obstructive sleep apnea) Chronic bronchitis Diabetes GERD (gastroesophageal reflux disease) COPD (chronic obstructive pulmonary disease) Hypertension Migraines Surgical History History of mandibular surgery H/O shoulder surgery H/O: hysterectomy Social History Smoking Status: Former smoker alcohol intake: former substance use type: does not use HPI HPI Chief Complaint: [facility] ED F/U Details: BRANDI SAUECDA, is a 63 F who presents to the office today for follow-up status post work-related injury suffered on 04/14/2024. Patient states on date of injury while at work losing footing tripping falling landing on both knees and RUE. She reported [facility] ED same day where she was treated and released with diagnosis of right shoulder strain and bilateral knee contusions, though admits her right elbow/wrist aggravates her symptoms as well. She has no cervical complaints or upper extremity radicular complaints. She notes both knees symptoms have essentially resolved. She notes right shoulder and elbow and wrist are aggravated to touch and with range of motion, alleviated with minimally with rest and isolation. Since the date of injury she been working without restrictions though appreciates at the end of each shift that her right wrist/elbow/shoulder are all aggravated with a trace amount of swelling appreciated throughout the right upper extremity as she describes. PMH NC. Veann-zbny-rokutiqd. No ufke-hma-arjkqta products taken with assist. No other associated symptoms and no other alleviating/aggravati ng factors. ROS Const Constitutional: No other (as above) Exam Const General: cooperative, healthy appearing and no acute distress Orientation: alert and awake [facility] Head: normal to inspection Ears: hearing grossly normal bilaterally and external ears normal Nose: external nose normal Eyes General: appearance normal, both eyes and all related structures Neck Neck: normal visual inspection, full ROM, no lymphadenopathy, no meningeal signs and supple Resp Effort Inspection: normal respiratory effort and able to speak in complete sentences Cardio Rate: regular rate Pulses: radial pulses present GI Inspection: normal to inspection Skin General: no rashes or lesions noted Neuro General: patient alert, patient awake and patient oriented x3 Cognition: normal cognition Speech: speech normal Extrem General: normal to inspection, capillary refill normal and normal exam except as noted (see Other) Other: Left knee and right knee: Unguarded FAROM with unguarded ambulation appreciated. Right shoulder: Limited range of motion to all with positive empty can and tende (more content not included)... Normal [facility] Wrist min 3 Viewson 05-07-20 Wrist min 3 Views [facility] Imaging Services [address] [place] [address] Wrist min 3 Views MR#: [id number] Acct: [id number] Name: BRANDI SAUCEDA Rep #: [id number] : 1960 F 63 From: Geovanny mackenzie MD PCP: [facility] Status: REG CLI Study: Wrist min 3 Views Date of Exam: 05/07/24 Exam# [id number] Ordering Dr: Martín Webb [id number] STUDY: X-RAY - RIGHT WRIST REASON FOR EXAM: Female, 63 years old. Wrist pain following a fall. TECHNIQUE: 3 view(s) of the wrist were obtained. COMPARISON: None. FINDINGS: Normal visualized distal radius and ulna. Normal radiocarpal articulation. Normal distal radioulnar articulation. Normal carpal bones. Normal carpal articulations. Normal carpometacarpal articulation of the thumb. Normal second through fifth carpometacarpal articulations. Normal visualized metacarpal bones. Soft tissue swelling. RAD/Wrist min 3 Views IMPRESSION: Soft tissue swelling. Electronically Signed: Geovanny Kent MD at 11:50 EDT , CC: JOSEPHINE Issa; [facility] Editor Map: Signed Normal [facility] Emergency Department Summary on 04-14-2024 Emergency Department Summary [facility] Medical Records Department [address] [place] [address] Emergency Department Summary 04/14/24 MR#: [id number] Acct: [id number] Name: BRANDI SAUCEDA Rep #: [id number] : 1960 63 From: Dulce Izquierdo MD PCP: [facility] Status:DEP ER Location: ED HPI HPI - Fall History of Present Illness Chief Complaint: Fall Informant: patient Occured/Mechanism Occurred: Today Narrative Narrative: Patient presents secondary to a fall at work. 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 She does not remember if she tripped over something. She landed on her right shoulder and complains of pain to her right shoulder and right arm, right hand, bilateral knees. She reports a small laceration or abrasion to the left thumb that was cleansed by a coworker and a bandage placed. She did not strike her head or lose consciousness. She is not on blood thinners. She is right-hand dominant. [facility] Medical History SOURAV (obstructive sleep apnea) Chronic bronchitis Diabetes GERD (gastroesophageal reflux disease) COPD (chronic obstructive pulmonary disease) Hypertension Migraines Home Medications ???Medication ???Instructions ???Recorded ???Last Taken ???Type ergocalciferol (vitamin D2) 1,250 1 cap PO FR SUPPLEMENT 01/21/20 01/13/23 History mcg (50,000 unit) capsule lisinopril 10 mg tablet 20 mg PO DAILY blood pressure 01/21/20 01/19/23 History montelukast 10 mg tablet 10 mg PO DAILY@1700 ALLERGIES 01/21/20 01/19/23 History ascorbic acid (vitamin C) 500 mg 500 mg PO DAILY vitamin 09/07/22 01/19/23 History tablet (Vitamin C) cyclobenzaprine 5 mg tablet 5 mg PO QHS pain 01/20/23 01/19/23 History atorvastatin 20 mg tablet 20 mg PO QHS #30 tabs 01/21/23 Unknown Rx loratadine 10 mg tablet 10 mg PO DAILY@1700 PRN allergy 30 01/21/23 01/19/23 Rx days #0 tabs aspirin 81 mg tablet,delayed 81 mg PO DAILY 03/15/23 Unknown History release pantoprazole 40 mg tablet,delayed 40 mg PO QAM #90 tabs 03/15/23 Unknown Rx release sucralfate 1 gram tablet 1 g PO BID #60 tabs 01/29/24 Unknown Rx Allergy/AdvReac Type Severity Reaction Status Date / Time aspirin Allergy Vomiting Verified 04/14/24 16:39 Surgical History History of mandibular surgery H/O shoulder surgery H/O: hysterectomy Social History Smoking Status: Former smoker alcohol intake: former substance use type: does not use ROS ROS ED Constitutional Constitutional ED: Denies chills or fever(s) Eyes Eyes: Denies discharge from eye(s) ENT ENT ED: Denies discharge from eye(s) or rhinorrhea Cardiovascular Cardiovascular: Denies chest pain or palpitations Respiratory/Chest Respiratory/Chest: Denies cough or dyspnea Gastrointestinal Gastrointestinal: Denies abdominal pain, nausea or vomiting Genitourinary Genitourinary ED: Denies dysuria Musculoskeletal Musculoskeletal: Reports extremity pain; Denies back pain Integumentary Reports Abrasions; Denies rash Neurologic Neurologic: Reports weakness; Denies headache(s) or paresthesias Psychiatric Psychiatric: Denies anxiety or depression Allergic/Immunologic Allergic/Immunologic ED: Denies lip swelling or urticaria EXAM Physical Exam Const Vital Signs: 04/14/24 16:39 04/14/24 16:53 Temperature 97 F L Temperature Source Temporal Pulse Rate 85 Respiratory Rate 18 Respiratory Effort Normal Non-Labored Respiratory Depth Normal Respiratory Pattern Normal Blood Pressure 139/88 H Blood Pressure Mean 105 Pulse Ox 96 Oxygen Delivery Method Room Air Positive well nourished and well developed General Appearance ED: well developed HEENT Reports normocephalic Eyes EOMs intact bilaterally Neck full ROM Neck Narrative: No C-spine tenderness. Chest Wall inspection of chest normal and palpation of chest normal Resp normal respiratory effort and clear to auscultation bilaterally Cardio regular rate and regular rhythm GI non-tender Palpation: soft Extremity Extremity Narrative: Right upper extremity: Diffuse tenderness location around the right shoulder and scapula. No obvious deformity. Decreased range of motion secondary to pain. Mild tenderness over the proximal humerus. No focal tenderness at the elbow or wrist. Patient has a small area of erythema to the palm of the hand with some mild tenderness. Good cap refill distally and can wiggle fingers. Left upper extremity: Bandage on the left thumb is removed. There is a small abrasion with no active bleeding. No blood noted on the d (more content not included)... Normal [facility] Hand Min 3 Viewson 4 Hand Min 3 Views [facility] Imaging Services [address] [place] [address] Hand Min 3 Views MR#: [id number] Acct: [id number] Name: BRANDI SAUCEDA Rep #: [id number] : 1960 F 63 From: Jalil Langston PCP: [facility] Status: REG ER Study: Hand Min 3 Views Date of Exam: 04/14/24 Exam# [id number] Ordering Dr: Dulce Izquierdo MD [id number] EXAM: XR RIGHT HAND COMPLETE, 3 OR MORE VIEWS CLINICAL INDICATION: injury TECHNIQUE: Frontal, lateral and oblique views of the right hand. COMPARISON: No relevant prior studies available. FINDINGS: BONES/JOINTS: Unremarkable. No acute fracture. No subluxation. Normal alignment. Preservation of the joint space. No sclerotic or destructive changes observed. SOFT TISSUES: Unremarkable. No soft tissue swelling or gas. No radiopaque foreign body. RAD/Hand Min 3 Views IMPRESSION: Negative right hand x-rays. Electronically Signed: Jalil Humphries MD at 18:27 EDT , CC: Dr. Dulce Izquierdo MD; [facility] Editor Map: Signed Normal [facility] Humerus min 2 Viewson 2023 Humerus min 2 Views [facility] Imaging Services [address] [place] [place] [address] Humerus min 2 Views MR#: [id number] Acct: [id number] Name: BRANDI SAUCEDA ASHLEY Rep #: [id number] : 1960 63 From: Jalil Langston PCP: [facility] Status: REG ER Study: Humerus min 2 Views Date of Exam: 04/14/24 Exam# [id number] Ordering Dr: Dulce Izquierdo MD [id number] EXAM: XR RIGHT HUMERUS, 2 OR MORE VIEWS CLINICAL INDICATION: injury TECHNIQUE: Frontal and lateral views of the right humerus. COMPARISON: No relevant prior studies available. FINDINGS: BONES/JOINTS: Unremarkable. No acute fracture. No subluxation. Normal alignment. Preservation of the joint space. No sclerotic or destructive changes observed. SOFT TISSUES: Unremarkable. No soft tissue swelling or gas. No radiopaque foreign body. RAD/Humerus min 2 Views IMPRESSION: Negative right humerus x-rays. Electronically Signed: Jalil Humphries MD at 18:19 EDT Reading Location ID and State: [facility] / [place] , Service support , CC: Dr. Dulce Izquierdo MD; [facility] Editor Map: Signed Normal [facility] Knee 4 or More Viewson 04-14 Knee 4 or More Views [facility] Imaging Services [address] [place] [address] Knee 4 or More Views MR#: [id number] Acct: [id number] Name: BRANDI SAUCEDA ASHLEY Rep #: [id number] : 1960 F 63 From: Jalil Langston PCP: [facility] Status: REG ER Study: Knee 4 or More Views Date of Exam: 04/14/24 Exam# [id number] Ordering Dr: Dulce Izquierdo MD [id number] EXAM: XR LEFT KNEE COMPLETE, 4 OR MORE VIEWS CLINICAL INDICATION: injury TECHNIQUE: Four or more views of the left knee. COMPARISON: No relevant prior studies available. FINDINGS: BONES/JOINTS: Unremarkable. No acute fracture. No subluxation. Normal alignment. Preservation of the joint space. No sclerotic or destructive changes observed. SOFT TISSUES: Unremarkable. No soft tissue swelling or gas. No radiopaque foreign body. RAD/Knee 4 or More Views IMPRESSION: Negative left knee x-rays. Electronically Signed: Jalil Humphries MD at 18:24 EDT Reading Location ID and State: [facility] / [place] , Service support , CC: Dr. Dulce Izquierdo MD; [facility] Editor Map: Signed Normal [facility] Knee 4 or More Views [facility] Imaging Services [address] [place], [place] [address] Knee 4 or More Views MR#: [id number] Acct: [id number] Name: BRANDI SAUCEDA Rep #: [id number] : 1960 F 63 From: Jalil Langston PCP: [facility] Status: REG ER Study: Knee 4 or More Views Date of Exam: 04/14/24 Exam# [id number] Ordering Dr: Dulce Izquierdo MD [id number] STUDY: XR Knee Complete 4 Views or More 04/14/2024 6:13 PM REASON FOR EXAM: Female, 63 years old. injury TECHNIQUE: XR Knee Complete 4 Views or More RIGHT COMPARISON: None FINDINGS: Normal visualized distal femur. Normal visualized proximal tibia and fibula. Normal proximal tibiofibular articulation. There is mild degenerative arthrosis of the medial femorotibial compartment. There is mild degenerative arthrosis of the lateral femorotibial compartment. There is mild degenerative arthrosis of the patellofemoral articulation. The soft tissue structures are unremarkable. RAD/Knee 4 or More Views IMPRESSION: Degenerative arthrosis. Electronically Signed: Jalil Humphries MD at 18:14 EDT , CC: Dr. Dulce Izquierdo MD; [facility] Editor Map: Signed Normal [facility] Shoulder min 2 Viewson 04-14 Shoulder min 2 Views [facility] Imaging Services [address] [place] [address] Shoulder min 2 Views MR#: [id number] Acct: [id number] Name: BRANDI SAUCEDA ASHLEY Rep #: [id number] : 1960 F 63 From: Jalil Langston PCP: [facility] Status: REG ER Study: Shoulder min 2 Views Date of Exam: 04/14/24 Exam# [id number] Ordering Dr: Dulce Izquierdo MD [id number] STUDY: XR Shoulder Min 2 Views REASON FOR EXAM: Female, 63 years old. injury TECHNIQUE: XR Shoulder 2 Views RIGHT COMPARISON: None. FINDINGS: There is mild degenerative arthrosis of the glenohumeral articulation. There is degenerative arthrosis of the acromioclavicular joint without inferior osseous spur formation. Normal acromion. Normal humeral head and visualized proximal humerus. The soft tissue structures are unremarkable. Normal visualized pulmonary apex. RAD/Shoulder min 2 Views IMPRESSION: There are no acute findings of the shoulder. Electronically Signed: Jalil Humphries MD at 18:21 EDT , CC: Dr. Dulce Izquierdo MD; [facility] Editor Map: Signed Normal [facility] CBC panel Auto (Bld)on 03-26 Erythrocyte distribution width (RBC) [Ratio] 13.9 % Normal 11.5-15.0 [facility] Comment on above: Order Comment: Speci men Type: BLOOD SPECIMENOrdering Facility: [facility] Address: [address] [place] [address] Performed By: #### 5 8410-2 ####[facility] [id number] [place] [address] [place] ELISA Hematocrit (Bld) [Volume fraction] 45.3 % Normal 36.0-46.0 [facility] Comment on above: Order Comment: Ryleei omar Type: BLOOD SPECIMENOrdering Facility: [facility] Address: [address] [place] [address] Performed By: #### 5 8410-2 ####[facility] [id number] [place] [address] [place] Hemoglobin (Bld) [Mass/Vol] 14.5 g/dL Normal 11.5-15.5 [facility] Comment on above: Order Comment: Speci men Type: BLOOD SPECIMENOrdering Facility: [facility] Address: [address] [place] [address] Performed By: #### 5 8410-2 ####[facility] [id number] [address] STATES OF [facility] MCH (RBC) [Entitic mass] 27.6 pg Normal 26.0-34.0 [facility] Comment on above: Order Comment: Speci men Type: BLOOD SPECIMENOrdering Facility: [facility] Address: [address] [place] [address] Performed By: #### 5 8410-2 ####[facility] [id number] [address] [facility] MCHC (RBC) [Mass/Vol] 32.0 g/dL Normal 30.5-36.0 [facility] Comment on above: Order Comment: Speci men Type: BLOOD SPECIMENOrdering Facility: [facility] Address: [address] [place] [address] Performed By: #### 5 8410-2 ####[facility] [id number] [address] [facility] MCV (RBC) [Entitic vol] 86.3 fL Normal 80.0-100.[address] [facility] Comment on above: Order Comment: Speci men Type: BLOOD SPECIMENOrdering Facility: [facility] Address: [address] [place] [address] Performed By: #### 5 8410-2 ####[facility] [id number] [address] STATES [place] ELISA Nucleated RBC (Bld) [#/Vol] 10*3/uL Normal <0.01 [facility] Comment on above: Order Comment: Speci men Type: BLOOD SPECIMENOrdering Facility: [facility] Address: [address] [place] [address] Performed By: #### 5 8410-2 ####[facility] [id number] [address] STATES OF ELISA Platelet mean volume (Bld) [Entitic vol] 11.0 fL Normal 9.0-12.7 [facility] Comment on above: Order Comment: Speci men Type: BLOOD SPECIMENOrdering Facility: [facility] Address: [address] [place] [address] Performed By: #### 5 8410-2 ####[facility] [id number] [place] [address] [place] Platelets (Bld) [#/Vol] 232 10*3/uL Normal 150-400 [facility] Comment on above: Order Comment: Speci men Type: BLOOD SPECIMENOrdering Facility: [facility] Address: [address] [place] [address] Performed By: #### 5 8410-2 ####[facility] [id number] [place] [address] [place] RBC (Bld) [#/Vol] 5.25 10*6/uL High 3.90-5.20 [facility] Comment on above: Order Comment: Speci men Type: BLOOD SPECIMENOrdering Facility: [facility] Address: [address] [place] [address] Performed By: #### 5 8410-2 ####[facility] [id number] [place] [address] [place] WBC (Bld) [#/Vol] 5.74 10*3/uL Normal 3.70-11.00 [facility] Comment on above: Order Comment: Speci men Type: BLOOD SPECIMENOrdering Facility: [facility] Address: [address] [place] [address] Performed By: #### 5 8410-2 ####[facility] [id number] [place] [id number] [place] ELISA Comprehensive metabolic 2000 panelon 03-26-2024 Albumin [Mass/Vol] 4.5 g/dL Normal 3.9-4.9 [facility] Comment on above: Order Comment: Speci men Type: BLOOD SPECIMENOrdering Facility: [facility] Address: [address], [place] [address] Performed By: #### 2 4323-8, 78329-8 ####[facility] [id number] [place] [id number] [place] ELISA ALP [Catalytic activity/Vol] 115 U/L Normal 34-123 [facility] Comment on above: Order Comment: Speci men Type: BLOOD SPECIMENOrdering Facility: [facility] Address: [address] [facility], [place] [address] Performed By: #### 2 4323-8, 30327-8 ####[facility] [id number] [place] [address] [place] ALT [Catalytic activity/Vol] 29 U/L Normal 7-38 [facility] Comment on above: Order Comment: Speci men Type: BLOOD SPECIMENOrdering Facility: [facility] Address: [address] [facility], [place] [address] Performed By: #### 2 4323-8, 86349-9 ####[facility] [id number] [place] [address] [place] Anion gap [Moles/Vol] 12 mmol/L Normal 8-15 [facility] Comment on above: Order Comment: Speci men Type: BLOOD SPECIMENOrdering Facility: [facility] Address: [address], [place] [address] Performed By: #### 2 4323-8, 65886-5 ####[facility] [id number] [place] [id number] [place] ELISA AST [Catalytic activity/Vol] 29 U/L Normal 13-35 [facility] Comment on above: Order Comment: Speci men Type: BLOOD SPECIMENOrdering Facility: [facility] Address: [address] [facility], [place] [address] Performed By: #### 2 4323-8, 62685-1 ####[facility] [id number] [facility] [place] [address] [place] Bilirubin [Mass/Vol] 0.5 mg/dL Normal 0.2-1.3 [facility] Comment on above: Order Comment: Speci men Type: BLOOD SPECIMENOrdering Facility: [facility] Address: [address] [place] [address], [place] [address] Performed By: #### 2 4323-8, 15099-1 ####[facility] [id number] [place] [address] [place] Calcium [Mass/Vol] 9.6 mg/dL Normal 8.5-10.2 [facility] Comment on above: Order Comment: Speci men Type: BLOOD SPECIMENOrdering Facility: [facility] Address: [address] [place] [address], [place] [address] Performed By: #### 2 432-8, 83799-2 ####[facility] [id number] [place] [address] [place] Chloride [Moles/Vol] 105 mmol/L Normal 98-107 [facility] Comment on above: Order Comment: Speci men Type: BLOOD SPECIMENOrdering Facility: [facility] Address: [address] [place] [address], [place] [address] Performed By: #### 2 43238, ####[facility] [id number] [facility] [place] [id number] [place] ELISA CO2 [Moles/Vol] 23 mmol/L Normal 22-30 [facility] Comment on above: Order Comment: Speci men Type: BLOOD SPECIMENOrdering Facility: [facility] Address: [address] [place] [address], [place] [address] Performed By: #### 2 4323-8, 32202-5 ####[facility] [id number] [place] [id number] [place] ELISA Creatinine [Mass/Vol] 0.48 mg/dL Low 0.58-0.96 [facility] Comment on above: Order Comment: Barbara nelson Type: BLOOD SPECIMENOrdering Facility: [facility] Address: [address] [place] [address], [place] [address] Performed By: #### 2 4323-8, 64269-9 ####[facility] [id number] [address] Creatinine and Glomerular filtration rate.predicted panel (S/P/Bld) 106 mL/min/1.73m??? Normal >=60 [facility] Comment on above: Order Comment: Barbara nelson Type: BLOOD SPECIMENOrdering Facility: [facility] Address: [address] [place] [address], [place] [address] Result Comment: Daisy mated Glomerular Filtration Rate (eGFR) is calculated using the 2020 CKD-EPI creatinine equation. This equation utilizes serum creatinine, sex, and age as parameters. The creatinine assay has traceable calibration to isotope dilution-mass spectrometry. Refer to KDIGO guidelines for clinical interpretation. In patients with unstable renal function, e.g. those with acute kidney injury, the eGFR may not accurately reflect actual GFR. Performed By: #### 2 4323-8, 51860-4 ####[facility] [id number] [place] [id number] [place] ELISA Glucose [Mass/Vol] 100 mg/dL High 74-99 [facility] Comment on above: Order Comment: Barbara nelson Type: BLOOD SPECIMENOrdering Facility: [facility] Address: [address] [place] [address], [place] [address] Result Comment: The [place] Diabetes Association (ADA) provides guidance for cutoff values for fasting glucose and random glucose. The ADA defines fasting as no caloric intake for at least 8 hours. Fasting plasma glucose results between 100 to 125 mg/dL indicate increased risk for diabetes (prediabetes). Fasting plasma glucose results greater than or equal to 126 mg/dL meet the criteria for diagnosis of diabetes. In the absence of unequivocal hyperglycemia, results should be confirmed by repeat testing. In a patient with classic symptoms of hyperglycemia or hyperglycemic crisis, random plasma glucose results greater than or equal to 200 mg/dL meet the criteria for diagnosis of diabetes. Reference: Standards of Medical Care in Diabetes 2016, [place] Diabetes Association. Diabetes Care. 2016.39(Suppl 1). Performed By: #### 2 4323-8, 14358-0 ####[facility] [id number] [address] [address] [place] ELISA Potassium [Moles/Vol] 4.5 mmol/L Normal 3.7-5.1 [facility] Comment on above: Order Comment: Speci men Type: BLOOD SPECIMENOrdering Facility: [facility] Address: [address] [place] [address], [place] [address] Performed By: #### 2 4328, ####[facility] [id number] [place] [address] [place] ELISA Protein [Mass/Vol] 5.9 g/dL Low 6.3-8.0 [facility] Comment on above: Order Comment: Ryleei omar Type: BLOOD SPECIMENOrdering Facility: [facility] Address: [address] [place] [address], [place] [address] Performed By: #### 2 4328, ####[facility] [id number] [place] [id number] [place] ELISA Sodium [Moles/Vol] 140 mmol/L Normal 136-144 [facility] Comment on above: Order Comment: Speci men Type: BLOOD SPECIMENOrdering Facility: [facility] Address: [address] [place] [address], [place] [address] Performed By: #### 2 4328, ####[facility] [id number] [address] [address] [place] ELISA Urea nitrogen [Mass/Vol] 20 mg/dL Normal 7-21 [facility] Comment on above: Order Comment: Speci omar Type: BLOOD SPECIMENOrdering Facility: [facility] Address: [address] [place] [address], [place] [address] Performed By: #### 2 4323-8, 42068-3 ####[facility] [id number] [address] OF ELISA HbA1c (Bld)on 03-26-2024 Average glucose Estimated from glycated hemoglobin (Bld) [Mass/Vol] 123 mg/dL Normal [facility] Comment on above: Order Comment: Ryleecamille nelson Type: BLOOD SPECIMENOrdering Facility: [facility] Address: [address] [place] [address], [place] [address] Result Comment: eAG: (Estimated average glucose) is a calculated value from HgbA1c and is electroplating sales representative of the average blood glucose level in the last 2-3 month period. Performed By: #### 5 5454-3 ####[facility] [id number] [address] STATES OF [facility] HbA1c (Bld) [Mass fraction] 5.9 % High 4.3-5.6 [facility] Comment on above: Order Comment: Ryleecamille nelson Type: BLOOD SPECIMENOrdering Facility: [facility] Address: [address] [place] [address] Result Comment: [place] Diabetes Association guidelines indicate that patients with HgbA1c in the range 5.7-6.4% are at increased risk for development of diabetes, and intervention by lifestyle modification may be beneficial. HgbA1c greater or equal to 6.5% is considered diagnostic of diabetes. Performed By: #### 5 5454-3 ####[facility] [id number] [place] [address] [place] ELISA Lipid 1996 panelon Cholesterol [Mass/Vol] 162 mg/dL Normal <200 [facility] Comment on above: Order Comment: Barbara nelson Type: BLOOD SPECIMENOrdering Facility: [facility] Address: [address] [place] [address], [place] [address] Result Comment: <200 mg/dL, Desirable 200-239 mg/dL, Borderline high >239 mg/dL, High Performed By: #### 2 4323-8, 32631-6 ####[facility] [id number] [address] [address] [place] ELISA Cholesterol in HDL [Mass/Vol] 48 mg/dL Normal >39 [facility] Comment on above: Order Comment: Speci men Type: BLOOD SPECIMENOrdering Facility: [facility] Address: [address] [place] [address], [place] [address] Result Comment: 40-5 9 mg/dL, Acceptable >59 mg/dL, High: Negative risk factor for coronary heart disease <40 mg/dL, Low: Positive risk factor for coronary heart disease Performed By: #### 2 4323-8, 77176-2 ####[facility] [id number] [place] [address] [place] ELISA Cholesterol in LDL [Mass/Vol] 87 mg/dL Normal <100 [facility] Comment on above: Order Comment: Ryleei omar Type: BLOOD SPECIMENOrdering Facility: [facility] Address: [address] [place] [address], [place] [address] Result Comment: <100 mg/dL, Optimal 100-129 mg/dL, Near optimal/above optimal 130-159 mg/dL, Borderline high 160-189 mg/dL, High >189 mg/dL, Very high Secondary prevention optimal LDL Cholesterol levels are recommended to be < 70 mg/dL Performed By: #### 2 4323-8, 24872-7 ####[facility] [id number] [address] [address] [place] ELISA Cholesterol in LDL/Cholesterol in HDL [Mass ratio] 1.81 {ratio} Normal <2.54 [facility] Comment on above: Order Comment: Barbara men Type: BLOOD SPECIMENOrdering Facility: [facility] Address: [address] [place] [address], [place] [address] Result Comment: Refe paoce: 1. National Cholesterol Education Program ATP III Guideline At-A-Glance Quick Desk Reference: National Heart, Lung, and Blood [place]. National Institutes of Health. 2001: NIH Publication No. 01-3305. 2. An International Atherosclerosis Society position paper: global recommendations for the management of dyslipidemia: executive summary, Atherosclerosis. 2014: 232(2):410-413. Performed By: #### 2 4323-8, 20087-5 ####[facility] [id number] [place] [address] [place] ELISA Cholesterol in VLDL [Mass/Vol] 27 mg/dL Normal <30 [facility] Comment on above: Order Comment: Speci men Type: BLOOD SPECIMENOrdering Facility: [facility] Address: [address] [place] [address] Performed By: #### 2 4328, ####[facility] [id number] [address] STATES OF ELISA Cholesterol non HDL [Mass/Vol] 114 mg/dL Normal <130 [facility] Comment on above: Order Comment: Speci men Type: BLOOD SPECIMENOrdering Facility: [facility] Address: [address] [place] [address] Result Comment: <130 mg/dL, Optimal 130-159 mg/dL, Near optimal/above optimal 160-189 mg/dL, Borderline high 190-219 mg/dL, High >219 mg/dL, Very high Secondary prevention optimal non HDL Cholesterol levels are recommended to be <100 mg/dL Performed By: #### 2 4323-05, ####[facility] [id number] [address] STATES OF ELISA Cholesterol.total/Choles terol in HDL [Mass ratio] 3.38 {ratio} Normal <5.10 [facility] Comment on above: Order Comment: Speci men Type: BLOOD SPECIMENOrdering Facility: [facility] Address: [address] [place] [address], [place] [address] Performed By: #### 2 4328, 41667-9 ####[facility] [id number] [place] [address] [place] ELISA FASTING TIME UNKNOWN Normal [facility] Comment on above: Order Comment: Speci men Type: BLOOD SPECIMENOrdering Facility: [facility] Address: [address] [place] [address] Performed By: #### 2 4323-8, 10761-5 ####[facility] [id number] [place] [address] [place] ELISA Triglyceride [Mass/Vol] 135 mg/dL Normal <[address] [facility] Comment on above: Order Comment: Speci men Type: BLOOD SPECIMENOrdering Facility: [facility] Address: [address] [place] [address] Result Comment: <150 mg/dL, Normal 150-199 mg/dL, Borderline high 200-499 mg/dL, High >499 mg/dL, Very high Performed By: #### 2 4323-8, 74627-5 ####[facility] [id number] [place] [address] [place] ELISA MA MAMMOGRAM SCREENING BILAT ERAL W/TOMOon 03-12-2024 MA MAMMOGRAM SCREENING BILATERAL W/MARY BETH ORIGINAL FROM: [place] [address] PROCEDURE FOR: BRANDI SAUCEDA [address] [place] [address] Home: PID#: [id number] Exam#: [id number] : 1960 Age: 63 TO: YENNY KAUFFMAN NP [place] [address] Fax: NO FAX EXAMINATION: SCREENING DIGITAL BILATERAL MAMMOGRAM WITH TOMOSYNTHESIS, 03/12/2024 11:23 am TECHNIQUE: Screening mammography of the bilateral breasts was performed with tomosynthesis. 2D standard and 3D tomosynthesis combination imaging performed through both breasts in the MLO and CC projection. Computer aided detection was utilized in the interpretation of this exam. COMPARISON: March 08, 2023, September 04, 2017, April 22, 2016 HISTORY: Breast cancer screening. FINDINGS: BREAST DENSITY: Scattered fibroglandular tissue There left biopsy marker clips. Bilateral benign-type calcifications are noted. There is no significant mass, architectural distortion or microcalcification. Fibroglandular pattern is stable. IMPRESSION: No mammographic evidence of malignancy. Continued screening with annual mammograms is recommended. Vipul Pennington risk calculations, generated with the history provided, report this patient's 10 year risk and lifetime risk for developing breast cancer at 2.8% and 6%, respectively. Based on this assessment tool, if the patient's calculated lifetime risk is below 20%, then the patient is considered at average risk for developing breast cancer. If the patient's calculated lifetime risk is at or above 20%, then the patient is considered high risk for developing breast cancer and may be a candidate for supplemental breast MRI screening in addition to annual mammographic screening per the [place] Cancer Society. BIRADS: MAMMOGRAM BI-RADS: 2: Benign finding RECALL: 1 year screening RECALL TYPE: mammo LETTER SENT: Normal BI-RADS 1 and 2 Interpreted by: Kitty Cruz Preliminary Report By: Kitty Cruz Electronically signed By Kitty Cruz Dictated Date: 03/12/2024 3:25:08 PM Prelim Date: 03/12/2024 3:40:01 PM Sign Date: 03/12/2024 3:40:01 PM Ordering Provider: YENNY KAUFFMAN Master Machinist: WILFREDO MARCELO(R) RDMS letter sent: Normal BI-RADS 1 and 2 Mammogram BI-RADS: 2 Benign Normal [facility] ([place]) CNOVon 12-22-2023 CNOV Office Visit (PODIWS ) BRANDI SAUCEDA ([id number]) 1960 F Date Time Provider Department 12/22/23 10:45 AM [facility] P[facility] During your visit today, we recorded the following information about you: Juany Day RN 12/22/2023 11:06 AM Signed AMB ROOMING INTAKE FLOWSHEET DATA Pain Pain Level: 6 Pain Location: Other: See Comment (bilateral foot toes) Description: Aching, Throbbing Duration Amount of Time: 2 Duration Units: Weeks Frequency: Intermittent Intervention/Comfort measure: Relaxation Patient presents with: Left Foot - Established Patient, Follow Up, Post Op Right Foot - Established Patient, Follow Up, Post Op Patient presents for follow up of matrixectomy to bilateral toenails 1-5. Procedure was done 12/08/23. States still some tenderness. Has been soaking them. Corby Power 12/22/2023 11:06 AM Signed FOLLOW UP PODIATRIC OFFICE VISIT Chief Complaint: This 63 year old who presents for follow up:nail matrixectomy, toes 1-5 b/l feet Patient presents to clinic for follow-up matrixectomy of toes 1-5 b/l Patient denies drainage Reports some discomfort but improving Overall doing well PAIN EVALUATION 12/22/2023 1043 Pain Level: 6 Pain Location: Other: See Comment bilateral foot toes Description: Aching;Throbbing Duration Amount of Time: 2 Duration Units: Weeks Frequency: Intermittent Intervention/Comfort measure: Relaxation Hemoglobin A1C Date Value Ref Range Status 01/17/2023 5.8 (H) 4.3 - 5.6 % Final Comment: [place] Diabetes Association guidelines indicate that patients with HgbA1c in the range 5.7-6.4% are at increased risk for development of diabetes, and intervention by lifestyle modification may be beneficial. HgbA1c greater or equal to 6.5% is considered diagnostic of diabetes. PCP: Yenny Kauffman NP PAST MEDICAL HISTORY Diagnosis Date Chronic bronchitis with COPD (chronic obstructive pulmonary disease) (HCC) GERD (gastroesophageal reflux disease) HTN (hypertension) Mixed hyperlipidemia Osteoarthritis Osteoporosis Sciatica Valvular heart disease Current Outpatient Medications Medication Sig Lactobacillus acidophilus (PROBIOTIC ORAL) Take 1 capsule by mouth once daily. MULTIVITAMIN ORAL Take 1 tablet by mouth once daily. pantoprazole DR (PROTONIX) 40 mg tablet Take 1 tablet by mouth once daily. aspirin, enteric coated (ASPIRIN, ENTERIC COATED) 81 mg EC tablet Take 81 mg by mouth once daily. Ascorbic Acid (VITAMIN C) 1,000 mg tablet Take 1,000 mg by mouth once daily. sucralfate (CARAFATE) 1 gram tablet Take 1 tablet by mouth every 12 hours. triamcinolone acetonide (KENALOG) 0.1 % cream Apply 1 application twice daily at shoulder excision scar as needed for sting/itch. metoprolol succinate ER (TOPROL XL) 25 mg 24 hr tablet Take 1 tablet by mouth every afternoon. ergocalciferol 50,000 unit capsule (VITAMIN D2, DRISDOL) Take 1 capsule by mouth one time a week. fluticasone (FLONASE) 50 mcg/actuation nasal spray Inhale 2 sprays in each nostril at night atorvastatin (LIPITOR) 20 mg tablet Take 20 mg by mouth once daily. cyclobenzaprine (FLEXERIL) 5 mg tablet Take 5 mg by mouth daily at bedtime. lisinopril (ZESTRIL, PRINIVIL) 10 mg tablet Take 20 mg by mouth once daily. loratadine (CLARITIN) 10 mg tablet Take 10 mg by mouth once daily. montelukast (SINGULAIR) 10 mg tablet Take 10 mg by mouth once daily. No current facility-administered medications for this visit. ALLERGIES Allergen Reactions Aspirin GI Upset vomitting and stomach pains Codeine GI Upset PAST SURGICAL HISTORY Procedure Laterality Date APPENDECTOMY BX BREAST PERC VACUUM/ROTN Left 01/19/2009 VAGINAL HYSTERECTOMY UTERUS 250 GM/< 1982 Hysterectomy, vaginal Physical Exam: OBJECTIVE: Constitutional: Pt is a well developed 63 year old female who is alert, oriented, cooperative and in no apparent distress. Eyes: Following during examination. No redness or drainage. Respiratory: RR normal and nonlabored. Even breathing. No evidence of distress. Psychology: Patient is engaged during conversation. Normal affect and mood. Does not appear depressed or anxious. NVSI unchanged from previous visit. Dermatological: Toes 1-5 b/l have nails removed. Nail beds appear to be healing without infection ASSESSMENT: (S99.109A) Open wound of toe, initial encounter (primary encounter diagnosis) PLAN: Patient is s/p total nail matrixectomy 1-5 b/l Toes appear to be healing without infection Continue with local wound care until all healing has achieved Patient is very pleased with outcome KATIE Dc Matthew 12/22/2023 11:04 AM Signed Your wound appears to be healing nicely Continue with soaking of the toes daily for the next 2-3 weeks or however long it takes for the toe to be completely healed Continue with topical antibiot (more content not included)... Normal [facility] CNPNon 12-11-2023 CNPN Telephone (PODIWS) BRANDI SAUCEDA ([id number]) 1960 F Date Time Provider Department 12/11/23 [facility] PODIWS During your visit today, we recorded the following information about you: Jeovanny Powell MA 12/11/2023 12:15 PM Signed Pt calling to see when she can return to work. She is scheduled Monday. She works at [employer] and is on her feet the whole time. She was unsure of her restrictions. If she is able to return, she will need a note. Please review and advise. WILLIAM Antoine Amelia, MINESH 12/11/2023 1:41 PM Signed Corby Power [facility] [place] 38 minutes ago (1:01 PM) I called patient. She is doing well. She is ok to return to work as scheduled Continue with local wound care Corby Power DPM Allergies As of Date: 12/11/2023 Noted Allergy Reaction ASPIRIN 01/15/2009 8 - GI Upset Comments: vomitting and stomach pains CODEINE 01/15/2009 8 - GI Upset Date Reviewed: 12/08/2023 Reviewed by: Renetta Miranda, RN - Fully Assessed Reason for Visit: Patient Question [1117] Prescriptions as of 12/11/2023 - Lactobacillus acidophilus (PROBIOTIC ORAL) Take 1 capsule by mouth once daily. - MULTIVITAMIN ORAL Take 1 tablet by mouth once daily. - pantoprazole DR (PROTONIX) 40 mg tablet Take 1 tablet by mouth once daily. - aspirin, enteric coated (ASPIRIN, ENTERIC COATED) 81 mg EC tablet Take 81 mg by mouth once daily. - Ascorbic Acid (VITAMIN C) 1,000 mg tablet Take 1,000 mg by mouth once daily. - sucralfate (CARAFATE) 1 gram tablet Take 1 tablet by mouth every 12 hours. - triamcinolone acetonide (KENALOG) 0.1 % cream Apply 1 application twice daily at shoulder excision scar as needed for sting/itch. - metoprolol succinate ER (TOPROL XL) 25 mg 24 hr tablet Take 1 tablet by mouth every afternoon. - ergocalciferol 50,000 unit capsule (VITAMIN D2, DRISDOL) Take 1 capsule by mouth one time a week. - fluticasone (FLONASE) 50 mcg/actuation nasal spray Inhale 2 sprays in each nostril at night - atorvastatin (LIPITOR) 20 mg tablet Take 20 mg by mouth once daily. - cyclobenzaprine (FLEXERIL) 5 mg tablet Take 5 mg by mouth daily at bedtime. - lisinopril (ZESTRIL, PRINIVIL) 10 mg tablet Take 20 mg by mouth once daily. - loratadine (CLARITIN) 10 mg tablet Take 10 mg by mouth once daily. - montelukast (SINGULAIR) 10 mg tablet Take 10 mg by mouth once daily. Meds Comments as of 09/03/2021: Vit c/d Problem List As Of Date 12/11/2023 Noted Resolved UNSP ABNORMAL MAMMOGRAM [R92.8] 01/15/2009 HTN (hypertension) [I10] Mixed hyperlipidemia [E78.2] Valvular heart disease [I38] Chronic bronchitis with COPD (chronic obstructi* Fatty liver [K76.0] GERD (gastroesophageal reflux disease) [K21.9] Morbidly obese (HCC) [E66.01] Chronic obstructive pulmonary disease (COPD) (H*12/08/2023 Encounter Status:Closed by JEOVANNY POWELL on 12/11/23 Normal [facility] ANES POSTPROC EVALon 024 ANES POSTPROC EVAL HNO ID: [id number] Author: DARRICK MENDEZ MD Service: ? Author Type: Anesthesiologist Type: Anesthesia Postprocedure Evaluation Filed: 12/08/2023 12:01 Note Text: POST ANESTHESIA EVALUATION NOTE : 1960 Procedure Summary Date: 12/08/23 Room / Location: PR OR02 / ME OR Anesthesia Start: 832 Anesthesia Stop: 999 Procedure: EXCISION OF NAIL AND MATRIX FOR PERMANENT REMOVAL (Bilateral) Diagnosis: Onychomycosis (Onychomycosis [B35.1]) Surgeons: Corby Power Responsible Provider: Darrick Mendez MD Anesthesia Type: MAC ASA Status: 3 Anesthesia Type: MAC Last Vitals Vitals Value Taken Time BP 147/79 12/08/23 1015 Temp 36.2 ?C (97.2 ?F) 12/08/23 1001 Pulse 65 12/08/23 1024 Resp 34 12/08/23 1024 SpO2 98 % 12/08/23 1024 Vitals shown include unfiled device data. Post Anesthesia Patient Status Patient Evaluation: bedside. Anticipated Disposition: phase 2 then home. Neurological Status: aware and responsive. Pulmonary Status: breathing comfortably on room air Airway Control: returned to baseline unsupported. Cardiovascular Status: stable. Pain Management: clinically adequate Postoperative Hydration: acceptable. Intraoperative Events: no significant anesthesia events Post Operative Nausea/Vomiting Status: no significant post operative nausea or vomiting Recommendation: continue current plan of care. Anesthesia Observations No Documentation SIGNATURE: Darrick Mendez MD PATIENT NAME: Brandi Sauceda DATE: December 08, 2023 TIME: 12:00 PM CSN: [id number] [facility] ANES PRE-OPon 12-08-2023 ANES PRE-OP HNO ID: [id number] Author: DARRICK MENDEZ MD Service: ? Author Type: Anesthesiologist Type: Anesthesia Preprocedure Evaluation Filed: 12/08/2023 08:04 Note Text: ANESTHESIOLOGY DAY OF SURGERY NOTE : 1960 Procedure Information Date/Time: 12/08/23826 Procedure: EXCISION OF NAIL AND MATRIX FOR PERMANENT REMOVAL (Bilateral) Location: [facility] OR02 / PR OR Surgeons: Corby Power Estimated body mass index is 42.82 kg/m? as calculated from the following: Height as of this encounter: 142.2 cm (4' 8). Weight as of this encounter: 86.6 kg (191 lb). Most recent hematocrit and potassium results: Hematocrit 44.5 01/17/2023 Potassium 4.3 01/17/2023 Relevant Problems ANESTHESIA (-) At risk for hemorrhage associated with anticoagulation therapy (-) Delayed emergence from anesthesia CARDIO (+) HTN (hypertension) (-) Angina at rest (HCC) (-) Angina of effort (HCC) GI (+) GERD (gastroesophageal reflux disease) -RENAL (+) Fatty liver PULMONARY (+) Chronic obstructive pulmonary disease (COPD) (HCC) I - PHYSICAL EVALUATION AIRWAY Patient intubated: No. Tracheostomy tube not present Mallampati: II. TM distance: >3 FB. Neck ROM: full ROM without neurological symptoms. Mouth opening: adequate. Short neck: no. Thick neck: yes Donnelly present: no DENTAL Dental findings: edentulous. II - ANESTHESIA PLAN ASA Score: 3 Anesthetic Plan: MAC The patient is not a current smoker. NPO Status: adequate Beta Kadie Monitoring Plan Post Procedure Analgesic Plan Postoperative analgesic plan: multimodal analgesia. Informed Consent Anesthetic risks, benefits, alternatives, personnel and consent discussed: yes. Patient / Responsible Alliance Party agrees to proceed: yes Patient / Surrogate agrees to blood products: Yes DNR status not reviewed with patient and/or family prior to surgery. Significant changes in the patient condition since the History and Physical, not otherwise documented in primary service progress note: no. Potential Anesthesia issues that may suggest increased risk of complications or contraindication to planned procedure: none. Vitals Value Taken Time BP 125/72 12/08/23 0731 Pulse 70 12/08/23 0731 Resp 20 12/08/23 0731 Temp 36.2 ?C (97.2 ?F) 12/08/23 0731 SpO2 97 % 12/08/23 0731 Facility-Administered Medications as of 12/08/2023 Medication Dose Route Frequency - lidocaine (PF) 10 mg/mL (1 %) 1-2 mg injection (XYLOCAINE) 0.1-0.2 mL INTRADERMAL PRN - lactated ringers iv infusion 5-30 mL/hr INTRAVENOUS CONTINUOUS - NaCl 0.9% iv flush bag 20 mL INTRAVENOUS PRN Outpatient Medications as of 12/08/2023 Medication Sig - pantoprazole DR (PROTONIX) 40 mg tablet Take 1 tablet by mouth once daily. - Ascorbic Acid (VITAMIN C) 1,000 mg tablet Take 1,000 mg by mouth once daily. - metoprolol succinate ER (TOPROL XL) 25 mg 24 hr tablet Take 1 tablet by mouth every afternoon. - ergocalciferol 50,000 unit capsule (VITAMIN D2, DRISDOL) Take 1 capsule by mouth one time a week. - atorvastatin (LIPITOR) 20 mg tablet Take 20 mg by mouth once daily. - lisinopril (ZESTRIL, PRINIVIL) 10 mg tablet Take 20 mg by mouth once daily. - loratadine (CLARITIN) 10 mg tablet Take 10 mg by mouth once daily. - montelukast (SINGULAIR) 10 mg tablet Take 10 mg by mouth once daily. - aspirin, enteric coated (ASPIRIN, ENTERIC COATED) 81 mg EC tablet Take 81 mg by mouth once daily. - sucralfate (CARAFATE) 1 gram tablet Take 1 tablet by mouth every 12 hours. - triamcinolone acetonide (KENALOG) 0.1 % cream Apply 1 application twice daily at shoulder excision scar as needed for sting/itch. - fluticasone (FLONASE) 50 mcg/actuation nasal spray Inhale 2 sprays in each nostril at night - cyclobenzaprine (FLEXERIL) 5 mg tablet Take 5 mg by mouth daily at bedtime. I have interviewed and examined the patient. I have reviewed the medical record and/or the pre-anesthesia evaluation, pertinent labs, and test results. This contains updated information obtained within 48 hours of Surgery/Procedure. SIGNATURE: Darrick Mendez MD PATIENT NAME: Brandi Sauceda DATE: December 08, 2023 TIME: 8:02 AM CSN: [id number] [facility] BRIEF OP NOTon 12-08-2023 BRIEF OP NOT HNO ID: [id number] Author: CORBY POWER, ? Service: ? Author Type: Physician Type: Brief Op Note Filed: 12/08/2023 09:57 Note Text: BRIEF OPERATIVE / PROCEDURE NOTE LOG ID: [id number] SURGERY/PROCEDURE DATE: 12/08/2023 INCISION/PROCEDURE START TIME: 8:45 AM INCISION CLOSE/PROCEDURE END TIME: 9:49 AM SURGEON(S)/PROCEDURAL IST(S) AND SPACE AND MISSILE OPERATIONS(S): Surgeon(s) and Role: * Corby Power - Primary No Additional Staff SURGERY/PROCEDURE(S): chemical matrixectomy, toenails 1,2,3,4,5 right. Chemical matrixectomy, toenails 1,2,3,4,5 left ANESTHESIA: Monitored Anesthesia Care FINDINGS: severe dystrophic toenails, b/l feet ESTIMATED BLOOD LOSS: 1 mls SPECIMENS: None COMPLICATIONS: None CLOSURE TECHNIQUE: Non-primary PRE-OP/PRE-PROCEDURE DIAGNOSIS: onychodystrophy, b/l toes 1,2,3,4,5 POST-OP/POST-PROCEDUR E DIAGNOSIS: Same as Preop SIGNATURE: Corby Power DPM PATIENT NAME: Brandi Sauceda DATE: December 08, 2023 TIME: 9:56 AM [facility] HISTORY PHYSICALon HISTORY PHYSICAL HNO ID: [id number] Author: CORBY POWER, ? Service: ? Author Type: Physician Type: H&P Filed: 12/08/2023 08:18 Note Text: UPDATED HISTORY AND PHYSICAL EXAMINATION SERVICE DATE: 12/08/2023 SERVICE TIME: 8:16 PHYSICAL EXAM MUST BE COMPLETED ON ADMISSION The History and Physical (completed in the past 30 days) has been reviewed and the patient has been examined. The contents accurately reflect the patient's condition with the following additions or revisions since the HANDP was completed. Examination indicates no changes. This HANDP can be found in the Electronic Medical Record Physical exam: Lungs are clear. No wheezing Heart: regular rate and rhythm. Vascular: DP and PT pulses are palpable. CFT is brisk. Skin temperature is warm. Pvr is normal Derm: toenails 1-5 b/l are dystrophic. Assessment: onychodystrophy 1-5 b/l Plan: will proceed with phenol matrixectomy toes 1-5 b/l . Reviewed pvr . Circulation appears normal. Reviewed past A1c from December 2022. 5.8. offered repeat. She declined. She chose to proceed with procedure today. All r/b/a discussed. Consent is signed for phenol matrixectomy toes 1-5 b/l. SIGNATURE: Corby Power DPM PATIENT NAME: Brandi Sauceda DATE: December 08, 2023 TIME: 8:16 AM [facility] OPERATIVE NOon 12-08-2023 OPERATIVE NO HNO ID: [id number] Author: CORBY POWER, ? Service: ? Author Type: Physician Type: Operative Report Filed: 12/09/2023 06:21 Note Text: OPERATIVE/PROCEDURE REPORT LOG ID: [id number] SURGERY/PROCEDURE DATE: 12/08/2023 INCISION/PROCEDURE START TIME: 8:45 AM INCISION CLOSE/PROCEDURE END TIME: 9:49 AM SURGEON(S)/PROCEDURAL IST(S) AND SPACE AND MISSILE OPERATIONS(S): Surgeon(s) and Role: * Corby Power - Primary No Additional Staff SURGERY/PROCEDURE(S): ,chemical matrixectomy, toenails 1,2,3,4,5 bilateral hallux ANESTHESIA: Monitored Anesthesia Care SURGERY/PROCEDURE DETAILS: patient is a pleasant 63 year old female who complains of thickening of her toenails of both feet. She states the nails are thick, deformed, difficult to maintain and cause her pain. She is interested in total nail removal and attempted chemical matrixectomy. I discussed risks of the procedure not limited to infection, pain, swelling, bleeding, slow wound healing, recurrent nail formation, loss of toe, blistering from chemical. I discussed history of border line diabetes. I reviewed A1c from 2021 and 2022. I offered repeat A1c. She elected to proceed without further testing. I did obtain pvr prior to procedure and she does have adequate perfusion. I informed her of the anticipated recovery and the need for local wound care. She understands all that is being done. She provides consent to proceed with chemical matrixectomy, toenails 1,2,3,4,5 of b/l feet. Patient was transferred to the operating room and placed on the operating room table in the supine position. She was identified by name and procedure. She was placed under sedation and the bilateral lower extremity was prepped and draped in the usual aseptic technique. Time out was performed noting the procedure planned. Attention was then directed to both feet. A total of 22 cc of 1% lidocaine plain was injected to b/l feet. (8 cc on right, 14 cc on left). Attention was first directed to the right foot. A saida drain was applied to the right 1st and 2nd toe. Using an elevator, the first and 2nd toenail was freed and removed. A curette was used to assure no remaining nail debris. All nonviable tissue including keratosis was debrided with tissue nippers. Three applications of phenol was then applied to the nail bed x 30 seconds each application. The saida drain was the removed. Hemostasis was aschieved. A saida drain was then applied to the right 3rd and 4th toe. Using an elevator, the 3rd and 4th toenail was freed and removed. A curette was used to assure no remaining nail debris. All nonviable tissue including keratosis was debrided with tissue nippers. Three applications of phenol was then applied to the nail bed x 30 seconds each application. The saida drain was the removed. Hemostasis was aschieved. A saida drain was then applied to the right 5th toe. Using an elevator, the fifth toenail was freed and removed. A curette was used to assure no remaining nail debris. All nonviable tissue including keratosis was debrided with tissue nippers. Three applications of phenol was then applied to the nail bed x 30 seconds each application. The saida drain was the removed. Hemostasis was aschieved. Attention was then directed to the left foot. A saida drain was applied to the left 1st and 2nd toe. Using an elevator, the first and 2nd toenail was freed and removed. A curette was used to assure no remaining nail debris. All nonviable tissue including keratosis was debrided with tissue nippers. Three applications of phenol was then applied to the nail bed x 30 seconds each application. The saida drain was the removed. Hemostasis was aschieved. A saida drain was then applied to the left 3rd and 4th toe. Using an elevator, the 3rd and 4th toenail was freed and removed. A curette was used to assure no remaining nail debris. All nonviable tissue including keratosis was debrided with tissue nippers. Three applications of phenol was then applied to the nail bed x 30 seconds each application. The saida drain was the removed. Hemostasis was aschieved. A saida drain was then applied to the left 5th toe. Using an elevator, the fifth toenail was freed and removed. A curette was used to assure no remaining nail debris. All nonviable tissue including keratosis was debrided with tissue nippers. Three applications of phenol was then applied to the nail bed x 30 seconds each application. The saida drain was the removed. Hemostasis was aschieved. All toes were then irrigated with alcohol followed by saline. The toes were then dressed with silvadene cream, adaptic, guaze and lightly applied oc. She was awakened and found to be in stable condition. She was transferred to the pacu in stable condition. She will perform local wound care on the toes daily. PRE-OP/PRE-PROCEDURE DIAGNOSIS: onychomycosis, toes 1-5 b/l POST-OP/POST-PROCEDUR E DIAGNOSIS: Same as (more content not included)... Normal [facility] HISTORY PHYSICALon HISTORY PHYSICAL HNO ID: [id number] Author: RAMON MURGUIA APRN.KINDERGARTEN TUTOR Service: ? Author Type: Nurse Practitioner Type: H&P Filed: 12/04/2023 14:55 Note Text: HISTORY AND PHYSICAL EXAMINATION SERVICE DATE: 12/04/2023 SERVICE TIME: 2:07 PM PRIMARY CARE PHYSICIAN: Yenny Kauffman NP Assessment Patient has the following medical conditions which may affect vicenta-operative course: Chronic bronchitis with COPD (chronic obstructive pulmonary disease) (HCC) Assessment: Patient quit smoking about 20 years ago. She has chronic, stable dyspnea with stairs but does OK walking on flat ground. She was prescribed inhalers but cannot afford them as she does not have health insurance. Fatty liver Assessment: Noted on 2020 ultrasound, LFTs WNL 12/2022. GERD (gastroesophageal reflux disease) Assessment: Symptoms currently stable on Rx. Does have some nausea if she doesn't take her meds. Valvular heart disease Assessment: Echo 2020 with mild MR and TR. Has occasional palpitations, lightheaded and dizziness. Denies syncope. Previously saw Dr. Davis in cardiology and recommended to follow up as needed. HTN (hypertension) Assessment: Compliant with Rx. Last 2 Encounter BP Readings: Date: BP: 12/04/2023 122/64 09/03/2021 112/80 Mixed hyperlipidemia Assessment: Compliant with Rx, following with PCP. Morbidly obese (HCC) Assessment: Body mass index is 42.82 kg/m?. Camacho Activity Status Index: METS: Walk a block or two on level ground (2.75 METs) Cannot do moderate work around the house, such as vacuuming, sweeping floors, or carrying in groceries Cannot climb a flight of stairs or walk up a hill DASI Score: 2.75 Patient denies any chest pain or undue shortness of breath with the above physical activity. Clinical Frailty Scale: 3. Well, with treated comorbid disease STOP-Bang Score: Snores loudly Often feels tired, fatigued, or sleepy during the daytime Has been observed to stop breathing or choking/gasping during sleep Has or is being treated for high blood pressure BMI greater than 35 kg/m2 Patient over 50 years old Does not have a large neck Non-male patient STOP-Bang Score: 6 ANESTHESIA FINDINGS: Intubation History: No history of difficult intubation. No abnormal airway history Significant Anesthesia Considerations: none Airway History: No history of difficult airway No abnormal airway history I - PHYSICAL EVALUATION AIRWAY Patient intubated: No. Tracheostomy tube not present Mallampati: I. TM distance: >3 FB. Neck ROM: full ROM without neurological symptoms. Mouth opening: adequate. Short neck: yes. Thick neck: no Donnelly present: no Upper lip bite test: ROCAEL. Microretrognathia/Hero ronagthia/Recessed Chin: No DENTAL Dental findings: edentulous. II - ANESTHESIA PLAN Beta Kadie Monitoring Plan Post Procedure Analgesic Plan Prepared for Surgery: optimally prepared for surgery. CONSULTS: Patient does not require consults for optimization at this time Planned Anesthetic: anesthesia choice The Following Tests/Procedures Have Been Initiated: Orders Placed This Encounter Lactobacillus acidophilus (PROBIOTIC ORAL) Sig: Take 1 capsule by mouth once daily. MULTIVITAMIN ORAL Sig: Take 1 tablet by mouth once daily. REASON FOR VISIT: Brandi Sauceda is a 63 year old female who is scheduled for EXCISION OF NAIL AND MATRIX FOR PERMANENT REMOVAL at the request of Dr. Corby Power for consultation. My final recommendation will be communicated back to the requesting physician by way of shared medical record or letter. Subjective The patient has the following: ACTIVE PROBLEM LIST Abnormal Mammogram, Unspecified Htn (Hypertension) Mixed Hyperlipidemia Valvular Heart Disease Chronic Bronchitis With Copd (Chronic Obstructive Pulmonary Disease) (Hcc) Fatty Liver Gerd (Gastroesophageal Reflux Disease) Morbidly Obese (Hcc) COVID-19 Immunization Status Overdue - Covid-19 Vaccine (1) Never done No completion, postpone, frequency change, or communication history exists for this topic. CHIEF COMPLAINT: Anesthesia Consult HPI: 63 year old female presents with onychomycosis. Patient states she has tried oral medication and soaking her feet in vinegar previously for treatment without significant improvement. She stands on her feet for long periods of time for work and her feet get very sore. She will usually wear a couple of pairs of socks so that the toes don't rub against her shoes. REVIEW OF SYSTEMS: General: No weight loss, malaise or fevers. Neurological: Positive for: headaches and impaired sensorium. Negative for: multiple sclerosis, Parkinson's disease, seizures, TIA and strokes. Respiratory: Positive for: COPD, current cough and dyspnea. Negative for: asthma, bronchitis, home oxygen, orthopnea, pneumonia within 6 weeks, tobacco use and obstructive sleep apnea. Cardiovascular: Positive for: hyperlipidemia, hyperten (more content not included)... Normal [facility] CNCOon 11-24-2023 CNCO Letter Text Normal [facility] CNOVon 11-13-2023 CNOV Office Visit (PODIWS ) BRANDI SAUCEDA ([id number]) 1960 F Date Time Provider Department 11/13/23 9:15 AM CORBY POWER PODIWS During your visit today, we recorded the following information about you: Juany Day, RN 11/13/2023 9:26 AM Signed Patient presents with: Left Foot - Established Patient, Follow Up, Nail Check Right Foot - Established Patient, Follow Up, Nail Check Patient presents for thick toenails. States that she was coming in to have all of them removed. Patient had recent PVR that showed good circulation. Nails are thick and discolored. Informed patient that we do not normally remove all the nails in office. Corby Power 11/13/2023 9:26 AM Signed FOLLOW UP PODIATRIC OFFICE VISIT Chief Complaint: This 63 year old who presents for follow up:toenail deformity Patient presents to clinic for followup dystrophic toenails Is here to discuss options for removal. PAIN EVALUATION No data found in the last 1 encounters. Hemoglobin A1C Date Value Ref Range Status 01/17/2023 5.8 (H) 4.3 - 5.6 % Final Comment: [place] [employer] guidelines indicate that patients with HgbA1c in the range 5.7-6.4% are at increased risk for development of diabetes, and intervention by lifestyle modification may be beneficial. HgbA1c greater or equal to 6.5% is considered diagnostic of diabetes. PCP: Cayla Chowdhury CNP PAST MEDICAL HISTORY Diagnosis Date Chronic bronchitis with COPD (chronic obstructive pulmonary disease) HTN (hypertension) Mixed hyperlipidemia Osteoarthritis Osteoporosis Sciatica Valvular heart disease Current Outpatient Medications Medication Sig pantoprazole DR (PROTONIX) 40 mg tablet Take 1 tablet by mouth once daily. aspirin, enteric coated (ASPIRIN, ENTERIC COATED) 81 mg EC tablet Take 81 mg by mouth once daily. Ascorbic Acid (VITAMIN C) 1,000 mg tablet Take 1,000 mg by mouth once daily. sucralfate (CARAFATE) 1 gram tablet Take 1 tablet by mouth every 12 hours. triamcinolone acetonide (KENALOG) 0.1 % cream Apply 1 application twice daily at shoulder excision scar as needed for sting/itch. metoprolol succinate ER (TOPROL XL) 25 mg 24 hr tablet Take 1 tablet by mouth every afternoon. ergocalciferol 50,000 unit capsule (VITAMIN D2, DRISDOL) Take 1 capsule by mouth one time a week. fluticasone (FLONASE) 50 mcg/actuation nasal spray Inhale 2 sprays in each nostril at night atorvastatin (LIPITOR) 20 mg tablet Take 20 mg by mouth daily at bedtime. cyclobenzaprine (FLEXERIL) 5 mg tablet Take 5 mg by mouth daily at bedtime. lisinopril (ZESTRIL, PRINIVIL) 10 mg tablet Take 20 mg by mouth once daily. loratadine (CLARITIN) 10 mg tablet Take 10 mg by mouth once daily. montelukast (SINGULAIR) 10 mg tablet Take 10 mg by mouth once daily. omeprazole (PRILOSEC) 20 mg capsule Take 20 mg by mouth once daily. (Patient not taking: Reported on 08/15/2023) naproxen (NAPROSYN) 500 mg tablet Take 500 mg by mouth twice daily as needed. (Patient not taking: Reported on 08/15/2023) lovastatin (MEVACOR) 20 mg tablet Take 20 mg by mouth daily at bedtime. (Patient not taking: Reported on 11/13/2023) alendronate sodium(FOSAMAX 70 MG TAB) Take once per week in the morning with a full glass of water, on an empty stomach, and do not take anything else by mouth or lie down for the next 30 minutes. (Patient not taking: No sig reported) No current facility-administered medications for this visit. ALLERGIES Allergen Reactions Aspirin GI Upset vomitting and stomach pains Codeine PAST SURGICAL HISTORY Procedure Laterality Date APPENDECTOMY BX BREAST PERC VACUUM/ROTN Left VAGINAL HYSTERECTOMY UTERUS 250 GM/< 1982 Hysterectomy, vaginal Physical Exam: OBJECTIVE: Constitutional: Pt is a well developed 63 year old female who is alert, oriented, cooperative and in no apparent distress. Eyes: Following during examination. No redness or drainage. Respiratory: RR normal and nonlabored. Even breathing. No evidence of distress. Psychology: Patient is engaged during conversation. Normal affect and mood. Does not appear depressed or anxious. NVSI unchanged from previous visit. Non-Invasive Vascular Laboratory [facility] Lower Extremity Arterial Physiology Study Bilateral/Complete Date of service/time: 09/08/2023 12:22:58 PM Name: MRS. BRANDI SAUCEDA Date of : 1960 Age: 63 years Gender: F Clinical Indication Decreased pulses. TECHNIQUE -------- An arterial physiological examination was performed, including measurement of blood pressures using continuous wave Doppler and recording of plethysmographic with or without Doppler waveforms at the below-mentioned limb segments. FINDINGS -------- RIGHT SIDE AT REST Right Doppler Waveforms Dors (more content not included)... Normal [facility] 11-13-2023 [facility] Telephone (PODIWS) BRANDI SAUCEDA ([id number]) 1960 F Date Time Provider Department 11/13/23 CORBY POWER During your visit today, we recorded the following information about you: Corby Power 11/13/2023 9:27 AM Signed Patient name: Brandi Sauceda* Type of surgery:chemical matrixectomy, toes 1-5 b/l CPT code:85540 Diagnosis: onychomycosis* Length of surgery:120 min Change Management Consultant needed: none* Anesthesia: mac Special equipment: 30 phenol sticks Myrtle Villa RN 11/14/2023 4:09 PM Signed Patient called in stating that financial assistance said they would help with cost of surgery. She was told a fax was being sent to the office. DONATO Amin Amelia, LPN 11/24/2023 2:57 PM Signed Patient presented to office on 11/13/2023 to discuss surgery and sign consent. Patient elected to schedule surgery for chemical matrixectomy, toes 1-5 b/l on 12/08/2023 at [facility]. Patient was provided with surgical packet including electronic and paper copy of surgical confirmation letter, and instruction on where to go at [facility] All post op were scheduled with in office as well. Patient verbalized understanding of all instructions. Surgery scheduled in [facility]. Indigo Smith LPN Allergies As of Date: 11/13/2023 Noted Allergy Reaction ASPIRIN 01/15/2009 8 - GI Upset Comments: vomitting and stomach pains CODEINE 01/15/2009 Date Reviewed: 11/13/2023 Reviewed by: Juany Day RN - Fully Assessed Reason for Visit: Patient Update [1234] Prescriptions as of 12/08/2023 - Lactobacillus acidophilus (PROBIOTIC ORAL) Take 1 capsule by mouth once daily. - MULTIVITAMIN ORAL Take 1 tablet by mouth once daily. - pantoprazole DR (PROTONIX) 40 mg tablet Take 1 tablet by mouth once daily. - aspirin, enteric coated (ASPIRIN, ENTERIC COATED) 81 mg EC tablet Take 81 mg by mouth once daily. - Ascorbic Acid (VITAMIN C) 1,000 mg tablet Take 1,000 mg by mouth once daily. - sucralfate (CARAFATE) 1 gram tablet Take 1 tablet by mouth every 12 hours. - triamcinolone acetonide (KENALOG) 0.1 % cream Apply 1 application twice daily at shoulder excision scar as needed for sting/itch. - metoprolol succinate ER (TOPROL XL) 25 mg 24 hr tablet Take 1 tablet by mouth every afternoon. - ergocalciferol 50,000 unit capsule (VITAMIN D2, DRISDOL) Take 1 capsule by mouth one time a week. - fluticasone (FLONASE) 50 mcg/actuation nasal spray Inhale 2 sprays in each nostril at night - atorvastatin (LIPITOR) 20 mg tablet Take 20 mg by mouth once daily. - cyclobenzaprine (FLEXERIL) 5 mg tablet Take 5 mg by mouth daily at bedtime. - lisinopril (ZESTRIL, PRINIVIL) 10 mg tablet Take 20 mg by mouth once daily. - loratadine (CLARITIN) 10 mg tablet Take 10 mg by mouth once daily. - montelukast (SINGULAIR) 10 mg tablet Take 10 mg by mouth once daily. Meds Comments as of 09/03/2021: Vit c/d Problem List As Of Date 11/13/2023 Noted Resolved UNSP ABNORMAL MAMMOGRAM [R92.8] 01/15/2009 HTN (hypertension) [I10] Mixed hyperlipidemia [E78.2] Valvular heart disease [I38] Encounter Status:Closed by INDIGO SMITH on 12/08/23 Normal [facility] PVR ANK PRESS [facility]TAN [facility]AS LABon 09-08-2023 PVR ANK PRESS [facility] LAB Non-Invasive Vascular Laboratory [facility] Lower Extremity Arterial Physiology Study Bilateral/Complete Date of service/time: 09/08/2023 12:22:58 PM Name: MRS. BRANDI SAUCEDA Date of : 1960 Age: 63 years Gender: F Clinical Indication Decreased pulses. TECHNIQUE -------- An arterial physiological examination was performed, including measurement of blood pressures using continuous wave Doppler and recording of plethysmographic with or without Doppler waveforms at the below-mentioned limb segments. FINDINGS -------- RIGHT SIDE AT REST Right Doppler Waveforms Dorsalis pedis: Multiphasic. Post tibial: Multiphasic. Right Pressures Brachial: 120 mmHg Ankle dorsalis pedis: 144 mmHg AKI: 1.20 Ankle posterior tibial: 150 mmHg AKI: 1.25 Digit: 121 mmHg Right PVR Waveforms Ankle: Normal. Digit: Normal. LEFT SIDE AT REST Left Doppler Waveforms Dorsalis pedis: Multiphasic. Post tibial: Multiphasic. Left Pressures Brachial: 120 mmHg Ankle dorsalis pedis: 141 mmHg AKI: 1.18 Ankle posterior tibial: 144 mmHg AKI: 1.20 Digit: 125 mmHg Left PVR Waveforms Ankle: Normal. Digit: Normal. IMPRESSION RIGHT SIDE Resting right ankle brachial index: 1.25 Right toe brachial index: 1.01 Normal ankle brachial index at rest in the right leg. Normal toe brachial index at rest in the right leg. Right ankle: Normal at rest. LEFT SIDE Resting left ankle brachial index: 1.20 Left toe brachial index: 1.04 Normal ankle brachial index at rest in the left leg. Normal toe brachial index at rest in the left leg. Left ankle: Normal at rest. Technologist: Fariha Cunningham RVT [facility] Ordering physician: CORBY POWER Interpreting physician: MILLY Mckinney DO Final CC [employer] [facility] Image : [id number] See Link below for Image Normal [facility] CNOVon 08-15-2023 CNOV Office Visit (PODIWS ) BRANDI SAUCEDA ([id number]) 1960 F Date Time Provider Department 08/15/23 3:45 PM CORBY POWER During your visit today, we recorded the following information about you: Juany Day RN 08/15/2023 9:03 PM Signed AMB ROOMING INTAKE FLOWSHEET DATA Risk Screening Do you have concerns about personal safety or safety in the home?: No Pain Pain Level: 8 Pain Location: Other: See Comment (Bilateral feet) Frequency: Intermittent Intervention/Comfort measure: Relaxation, Reposition Patient presents with: Left Foot - New, Pain Right Foot - New, Pain Patient presents as referral from Yesica Smith. States that she has corn to the bottom of her left foot. States that she has pain to toes on both feet. States that nails are thick and discolored. Corby Power 08/15/2023 9:03 PM Signed Initial Podiatric Office Visit: Chief Complaint: This 63 year old female who presents with chief complaint:painful toenails of b/l feet HPI Patient presents to clinic as part of referral for painful toenails. Patient states the toenails are thick and discolored and painful. Patient also complains of painful corn to left foot PAIN EVALUATION 08/15/2023 1550 Pain Level: 8 Pain Location: Other: See Comment Bilateral feet Frequency: Intermittent Intervention/Comfort measure: Relaxation;Reposition Hemoglobin A1C (%) Date Value 01/17/2023 5.8 09/15/2022 5.8 PCP: Cayla Chowdhury CNP PAST MEDICAL HISTORY Diagnosis Date Chronic bronchitis with COPD (chronic obstructive pulmonary disease) HTN (hypertension) Mixed hyperlipidemia Osteoarthritis Osteoporosis Sciatica Valvular heart disease Current Outpatient Medications Medication Sig sucralfate (CARAFATE) 1 gram tablet Take 1 tablet by mouth every 12 hours. triamcinolone acetonide (KENALOG) 0.1 % cream Apply 1 application twice daily at shoulder excision scar as needed for sting/itch. metoprolol succinate ER (TOPROL XL) 25 mg 24 hr tablet Take 1 tablet by mouth every afternoon. ergocalciferol 50,000 unit capsule (VITAMIN D2, DRISDOL) Take 1 capsule by mouth one time a week. fluticasone (FLONASE) 50 mcg/actuation nasal spray Inhale 2 sprays in each nostril at night atorvastatin (LIPITOR) 20 mg tablet Take 20 mg by mouth daily at bedtime. cyclobenzaprine (FLEXERIL) 5 mg tablet Take 5 mg by mouth daily at bedtime. loratadine (CLARITIN) 10 mg tablet Take 10 mg by mouth once daily. montelukast (SINGULAIR) 10 mg tablet Take 10 mg by mouth once daily. lovastatin (MEVACOR) 20 mg tablet Take 20 mg by mouth daily at bedtime. lisinopril (ZESTRIL, PRINIVIL) 10 mg tablet Take 10 mg by mouth once daily. (Patient not taking: Reported on 08/15/2023) omeprazole (PRILOSEC) 20 mg capsule Take 20 mg by mouth once daily. (Patient not taking: Reported on 08/15/2023) naproxen (NAPROSYN) 500 mg tablet Take 500 mg by mouth twice daily as needed. (Patient not taking: Reported on 08/15/2023) alendronate sodium(FOSAMAX 70 MG TAB) Take once per week in the morning with a full glass of water, on an empty stomach, and do not take anything else by mouth or lie down for the next 30 minutes. (Patient not taking: No sig reported) No current facility-administered medications for this visit. ALLERGIES Allergen Reactions Aspirin GI Upset vomitting and stomach pains Codeine PAST SURGICAL HISTORY Procedure Laterality Date APPENDECTOMY BX BREAST PERC VACUUM/ROTN Left VAGINAL HYSTERECTOMY UTERUS 250 GM/< 1982 Hysterectomy, vaginal FAMILY HISTORY Problem Relation Age of Onset Alcohol/Drug Father Diabetes Father Allergies Mother Cancer Paternal Grandfather Stroke Paternal Grandmother Social History Tobacco Use Smoking status: Never Smokeless tobacco: Never Vaping Use Vaping Use: Never used Substance Use Topics Alcohol use: No Drug use: No REVIEW OF SYSTEMS GENERAL: Negative for Malaise, significant weight loss, fever RESPIRATORY: Negative for cough, wheezing and shortness of breath CARDIOVASCULAR: Negative for chest pain, leg swelling and palpitations GI: Negative for abdominal discomfort, blood in stools or black stools and change in bowel habits : Negative for dysuria, frequency and incontinence MUSCULOSKELETAL: Negative for joint pain or swelling, back pain, and muscle pain. SKIN: Negative for lesions, rash, and itching. HEMATOLOGY/LYMPHOLOGY Negative for prolonged bleeding, bruising easily, and swollen nodes. ENDOCRINE: Negative for cold or heat intolerance, polyuria, polydipsia and goiter. NEURO: negative Physical Exam: Constitutional: Pt is a well developed 63 year old female who is alert, oriented and cooperative Eyes: Following during examination. No redness or drainage. Respiratory: RR normal and nonlabored. Even breathing. No evidence of distress or (more content not included)... Normal [facility] Absolute lymphocyte countOrd ered By: Dr. Sanchez on 01-21-2023 Lymphocytes Auto (Unsp spec) [#/Vol] 2.18 10*3/uL 0.83-4.51 [facility] Basophil percentageOrdered B y: Dr. Sanchez on 01-21-2023 Basophils/100 WBC (Bld) 0.8 % 0-1 [facility] Chloride [Moles/Vol] 110 mmol/L 98-107 [facility] Cholesterol [Mass/Vol] 155 mg/dL <200 [facility] Comment on above: <200 mg/dL Desirable 200-240 mg/dL Borderline >240 mg/dL High Risk Eosinophils/100 WBC (Bld) 4.5 % 0-5 [facility] Glucose [Mass/Vol] 122 mg/dL 74-106 [facility] Comment on above: Fasting Glucose resu lt from 100 to 125 mg/dL suggests IMPAIRED HOMEOSTASIS per A.D.A. criteria. Neutrophils (Bld) [#/Vol] 2.1 10*3/uL 2.0-7.7 [facility] Neutrophils/100 WBC (Bld) 43.3 % 47-70 [facility] Potassium [Moles/Vol] 3.8 mmol/L 3.5-5.1 [facility] Sodium [Moles/Vol] 139 mmol/L 136-145 [facility] Triglyceride [Mass/Vol] 213 mg/dL <199 [facility] Comment on above: The drugs N-Acetylcy steine and Metamizole may falsely depress this assay.Serum Triglycerides Reference Interval Normal <150 mg/dL Borderline high 150 - 199 mg/dL High 200 - 499 mg/dL Very High > or = 500 mg/dL WBC (Bld) [#/Vol] 4.8 10*3/uL 4.4-11.0 [facility] Blood erythrocytes count (nu mber/volume)Ordered By: Dr. Sanchez on 01-21-2023 RBC (Bld) [#/Vol] 4.69 10*6/uL 4.2-5.4 [facility] Blood hemoglobin measurement (mass/volume)Ordered By: Dr. Sanchez on 01-21-2023 Hemoglobin (Bld) [Mass/Vol] 12.8 g/dL 12.0-15.0 [facility] Blood lymphocytes/100 leukoc ytesOrdered By: Dr. Sanchez on 01-21-2023 Lymphocytes/100 WBC (Bld) 45.0 % 19-41 [facility] Blood monocytes/100 leukocyt esOrdered By: Dr. Sanchez on 01-21-2023 Monocytes/100 WBC (Bld) 6.2 % 0-10 [facility] Blood platelet mean volumeOr dered By: Dr. Sanchez on 01-21-2023 Platelet mean volume (Bld) [Entitic vol] 10.6 fL 6.2-12.0 [facility] Determination of erythrocyte mean corpuscular volume (MCV)Ordered By: Dr. Sanchez on 01-21-2023 MCV (RBC) [Entitic vol] 85.7 fL 81-99 [facility] Hematocrit Auto (Bld) [Volum e fraction]Ordered By: Dr. Sanchez on 01-21-2023 Hematocrit (Bld) [Volume fraction] 40.2 % 37-47 [facility] Laboratory - Chemistry and C hemistry - challengeOrdered By: Dr. Sanchez on 01-21-2023 CO2 [Moles/Vol] 25.0 mmol/L 21.0-32.0 [facility] Free T4 [Mass/Vol] 0.89 ng/dL 0.76-1.46 [facility] Urea nitrogen/Creatinine [Mass ratio] 35.9 mg/mg 10-20 [facility] Laboratory - Hematology and Cell countsOrdered By: Dr. Snachez on 01-21-2023 Erythrocyte distribution width (RBC) [Entitic vol] 43.7 fL 35.1-43.9 [facility] Erythrocyte distribution width (RBC) [Ratio] 14.1 % 11.6-14.6 [facility] Immature granulocytes/100 WBC (Bld) 0.200 % 0.0-0.9 [facility] Comment on above: IG% - Immature Granu locytes (promyelocytes, myelocytes and metamyelocytes) > 1% indicates that a LEFT SHIFT is Present. MCH (RBC) [Entitic mass] 27.3 pg 27.0-32.0 [facility] Nucleated RBC/100 WBC (Bld) [Ratio] 0 % 0-5 [facility] MCHC Auto (RBC) [Mass/Vol]Or dered By: Dr. Sanchez on 01-21-2023 MCHC (RBC) [Mass/Vol] 31.8 g/dL 32-36 [facility] No Panel InformationOrdered By: Dr. Sanchez on 01-21-2023 Estimated Creatinine Clearance Calc 150.93 ml/min [facility] Estimated GFR (MDRD) Amer 150 mL/min >60 [facility] Comment on above: GFR Calc Estimated GFR (MDRD) Non-Af Amer 124 mL/min >60 [facility] Comment on above: Non- GFR Calc Thyroid Stimulating Hormone (TSH) 6.81 uIU/mL 0.358-3.74 [facility] Platelets bldOrdered By: Dr. Sanchez on 01-21-2023 Platelets (Bld) [#/Vol] 185 10*3/uL 150-450 [facility] Serum or plasma calcium faizan urement (mass/volume)Ordered By: Dr. Sanchez on 01-21-2023 Calcium [Mass/Vol] 8.9 mg/dL 8.5-10.1 [facility] Serum or plasma cholesterol in HDL measurement (mass/volume)Ordered By: Dr. Sanchez on 01-21-2023 Cholesterol in HDL [Mass/Vol] 46 mg/dL >40 [facility] Comment on above: The drugs N-Acetylcy steine and Metamizole may falsely depress this assay. Reference Range HDL <40 mg/dL Low HDL Cholesterol HDL >or= 60 mg/dL High HDL Cholesterol Serum or plasma cholesterol in VLDL measurement (mass/volume)Ordered By: Dr. Sanchez on 01-21-2023 Cholesterol in VLDL [Mass/Vol] 43 mg/dL 5-40 [facility] Serum or plasma creatinine m easurement (mass/volume)Ordered By: Dr. Sanchez on 01-21-2023 Creatinine [Mass/Vol] 0.53 mg/dL 0.55-1.02 [facility] Comment on above: The validity of the calculated GFR & GFRAA in patients over 70 years has not been determined. Clinical correlation is essential. Serum or plasma low density lipoprotein (LDL) cholesterol measurement (mass/volume)Ordered By: Dr. Sanchez on 01-21-2023 Cholesterol in LDL [Mass/Vol] 66 mg/dL 0-130 [facility] Serum or plasma urea nitroge n measurement (mass/volume)Ordered By: Dr. Sanchez on 01-21-2023 Urea nitrogen [Mass/Vol] 19 mg/dL 7-18 [facility] Thin prep Papanicolaou smear with manual screeningOrdered By: Dr. Sanchez on 01-21-2023 Thin prep Papanicolaou smear with manual screening 4 5-15 [facility] Whole blood hemoglobin A1c/t otal hemoglobin ratio (mass fraction)Ordered By: Dr. Sanchez on 01-21-2023 HbA1c (Bld) [Mass fraction] 5.8 % 3.8-5.6 [facility] Comment on above: Normal < 5.7 % Predi abetic 5.7 - 6.4 % Diabetic >or= 6.5 % Please note range changes. Absolute lymphocyte countOrd ered By: Dr. Cox on 01-20-2023 Lymphocytes Auto (Unsp spec) [#/Vol] 2.13 10*3/uL 0.83-4.51 [facility] Basophil percentageOrdered B y: Dr. Sanchez on 01-20-2023 Basophil percentage 3.2 mg/dL 2.5-4.9 [facility] Basophil percentageOrdered B y: Dr. Cox on 01-20-2023 Basophil percentage 0-5 SEEN /hpf 0-5 [facility] Basophils/100 WBC (Bld) 0.7 % 0-1 [facility] Bilirubin [Mass/Vol] 0.50 mg/dL 0.20-1.00 [facility] Comment on above: For patients on eltr ombopag therapy, use of Dimension [place] TBIL is not recommended. Chloride [Moles/Vol] 109 mmol/L 98-107 [facility] Eosinophils/100 WBC (Bld) 2.3 % 0-5 [facility] Glucose [Mass/Vol] 132 mg/dL 74-106 [facility] Comment on above: Fasting Glucose resu lt greater than or equal to 126 mg/dL suggests DIABETES MELLITUS per A.D.A. criteria. Neutrophils (Bld) [#/Vol] 4.1 10*3/uL 2.0-7.7 [facility] Neutrophils/100 WBC (Bld) 60.1 % 47-70 [facility] Potassium [Moles/Vol] 4.0 mmol/L 3.5-5.1 [facility] Protein [Mass/Vol] 6.6 g/dL 6.4-8.2 [facility] Sodium [Moles/Vol] 139 mmol/L 136-145 [facility] WBC (Bld) [#/Vol] 6.9 10*3/uL 4.4-11.0 [facility] Bilirubin Test strip Ql (U)O rdered By: Dr. Cox on 01-20-2023 Bilirubin Ql (U) Negative Negative [facility] Blood erythrocytes count (nu mber/volume)Ordered By: Dr. Cox on 01-20-2023 RBC (Bld) [#/Vol] 5.32 10*6/uL 4.2-5.4 [facility] Blood hemoglobin measurement (mass/volume)Ordered By: Dr. Cox on 01-20-2023 Hemoglobin (Bld) [Mass/Vol] 14.7 g/dL 12.0-15.0 [facility] Blood lymphocytes/100 leukoc ytesOrdered By: Dr. Cox on 01-20-2023 Lymphocytes/100 WBC (Bld) 31.1 % 19-41 [facility] Blood monocytes/100 leukocyt esOrdered By: Dr. Cox on 01-20-2023 Monocytes/100 WBC (Bld) 5.7 % 0-10 [facility] Blood platelet mean volumeOr dered By: Dr. Cox on 01-20-2023 Platelet mean volume (Bld) [Entitic vol] 10.4 fL 6.2-12.0 [facility] Determination of erythrocyte mean corpuscular volume (MCV)Ordered By: Dr. Cox on 01-20-2023 MCV (RBC) [Entitic vol] 85.2 fL 81-99 [facility] Hematocrit Auto (Bld) [Volum e fraction]Ordered By: Dr. Cox on 01-20-2023 Hematocrit (Bld) [Volume fraction] 45.3 % 37-47 [facility] Ketones Test strip Ql (U)Ord ered By: Dr. Cox on 01-20-2023 Ketones Ql (U) Negative Negative [facility] Laboratory - Chemistry and C hemistry - challengeOrdered By: Dr. Sanchez on 01-20-2023 Magnesium [Mass/Vol] 2.1 mg/dL 1.6-2.6 [facility] Laboratory - Chemistry and C hemistry - challengeOrdered By: Dr. Cox on 01-20-2023 ALP [Catalytic activity/Vol] 106 U/L 45-117 [facility] ALT [Catalytic activity/Vol] 37 U/L 13-56 [facility] CO2 [Moles/Vol] 27.0 mmol/L 21.0-32.0 [facility] Globulin (S) [Mass/Vol] 2.8 g/dL 2.2-4.2 [facility] Urea nitrogen/Creatinine [Mass ratio] 34.9 mg/mg 10-20 [facility] Laboratory - Hematology and Cell countsOrdered By: Dr. Cox on 01-20-2023 Erythrocyte distribution width (RBC) [Entitic vol] 43.4 fL 35.1-43.9 [facility] Erythrocyte distribution width (RBC) [Ratio] 14.0 % 11.6-14.6 [facility] Immature granulocytes/100 WBC (Bld) 0.100 % 0.0-0.9 [facility] Comment on above: IG% - Immature Granu locytes (promyelocytes, myelocytes and metamyelocytes) > 1% indicates that a LEFT SHIFT is Present. MCH (RBC) [Entitic mass] 27.6 pg 27.0-32.0 [facility] Nucleated RBC/100 WBC (Bld) [Ratio] 0 % 0-5 [facility] MCHC Auto (RBC) [Mass/Vol]Or dered By: Dr. Cox on 01-20-2023 MCHC (RBC) [Mass/Vol] 32.5 g/dL 32-36 [facility] Mucus LM Ql (Urine sed)Order ed By: Dr. Cox on 01-20-2023 Mucus Ql (Urine sed) 0 SEEN /hpf [facility] Nitrite Test strip Ql (U)Ord ered By: Dr. Cox on 01-20-2023 Nitrite Ql (U) Negative Negative [facility] No Panel InformationOrdered By: Dr. Sanchez on 01-20-2023 Troponin I High Sensitivity 124 pg/mL 3.0-54.0 [facility] Comment on above: Critical Result(s) C alled at: 21:30:48 01/20/2023 by: Radha Gallagher. Results read back by same. Please Note: New Test Units and Gender Specific Reference Ranges. For more information see Policy Stat Procedure [place] High Sensitivity Troponin (TNIH) and attachments. No Panel InformationOrdered By: Dr. Cox on 01-20-2023 Troponin I High Sensitivity 118 pg/mL 3.0-54.0 [facility] Comment on above: Please Note: New Lorna t Units and Gender Specific Reference Ranges. For more information see Policy Stat Procedure [place] High Sensitivity Troponin (TNIH) and attachments. Estimated Creatinine Clearance Calc 138.89 ml/min [facility] Estimated GFR (MDRD) Amer 137 mL/min >60 [facility] Comment on above: GFR Calc Estimated GFR (MDRD) Non-Af Amer 113 mL/min >60 [facility] Comment on above: Non- GFR Calc Platelets bldOrdered By: Dr. Cox on 01-20-2023 Platelets (Bld) [#/Vol] 208 10*3/uL 150-450 [facility] Protein Test strip Ql (U)Ord ered By: Dr. Cox on 01-20-2023 Protein Ql (U) Negative Negative [facility] Serum or plasma albumin faizan urement (mass/volume)Ordered By: Dr. Cox on 01-20-2023 Albumin [Mass/Vol] 3.8 g/dL 3.2-5.0 [facility] Serum or plasma albumin/glob ulin mass ratioOrdered By: Dr. Cox on 01-20-2023 Albumin/Globulin [Mass ratio] 1.4 {ratio} 0.9-2.4 [facility] Serum or plasma calcium faizan urement (mass/volume)Ordered By: Dr. Cox on 01-20-2023 Calcium [Mass/Vol] 8.9 mg/dL 8.5-10.1 [facility] Serum or plasma creatinine m easurement (mass/volume)Ordered By: Dr. Cox on 01-20-2023 Creatinine [Mass/Vol] 0.57 mg/dL 0.55-1.02 [facility] Comment on above: The validity of the calculated GFR & GFRAA in patients over 70 years has not been determined. Clinical correlation is essential. Serum or plasma urea nitroge n measurement (mass/volume)Ordered By: Dr. Cox on 01-20-2023 Urea nitrogen [Mass/Vol] 20 mg/dL 7-18 [facility] Squamous epithelial cells de tection in urine sediment by light microscopyOrdered By: Dr. Cox on 01-20-2023 Epithelial cells.squamous LM Ql (Urine sed) 0 SEEN /hpf 5-10 [facility] Thin prep Papanicolaou smear with manual screeningOrdered By: Dr. Cox on 01-20-2023 Thin prep Papanicolaou smear with manual screening 22 U/L 15-37 [facility] Thin prep Papanicolaou smear with manual screening 3 5-15 [facility] Urine blood detectionOrdered By: Dr. Cox on 01-20-2023 RBC Ql (U) Negative Negative [facility] RBC Ql (U) 0 SEEN /hpf 0-5 [facility] Urine clarityOrdered By: Dr. Cox on 01-20-2023 Clarity (U) Clear Clear [facility] Urine color determinationOrd ered By: Dr. Cox on 01-20-2023 Color (U) Yellow Yellow [facility] Urine glucose detectionOrder ed By: Dr. Cox on 01-20-2023 Glucose Ql (U) Normal mg/dl Normal [facility] Urine leukocyte esterase det ection by dipstickOrdered By: Dr. Cox on 01-20-2023 Leukocyte esterase Test strip Ql (U) 100 /ul Negative [facility] Urine pHOrdered By: Dr. Marco rojas on 01-20-2023 pH (U) 7.0 [pH] 5.0 - 8.0 [facility] Urine sediment bacteria coun t by microscopy (number/high power field)Ordered By: Dr. Cox on 01-20-2023 Bacteria LM.HPF (Urine sed) [#/Area] 0 /[HPF] None Seen [facility] Urine specific gravity measu rementOrdered By: Dr. Cox on 01-20-2023 Specific gravity (U) [Rel density] 1.015 1.002-1.030 [facility] Urobilinogen Auto test strip Ql (U)Ordered By: Dr. Cox on 01-20-2023 Urobilinogen Ql (U) Normal mg/dl Normal [facility] Absolute lymphocyte counton 09-08-2022 Lymphocytes Auto (Unsp spec) [#/Vol] 2.17 10*3/uL 0.83-4.51 [facility] Work Phone: Basophil percentageon 2021 Basophils/100 WBC (Bld) 0.4 % 0-1 [facility] Work Phone: Bilirubin [Mass/Vol] 0.40 mg/dL 0.20-1.00 [facility] Work Phone: Comment on above: For patients on eltr ombopag therapy, use of Dimension [place] TBIL is not recommended. Chloride [Moles/Vol] 112 mmol/L 98-107 [facility] Work Phone: Eosinophils/100 WBC (Bld) 3.0 % 0-5 [facility] Work Phone: [phone] Glucose [Mass/Vol] 113 mg/dL 74-106 [facility] Work Phone: [phone] Comment on above: Fasting Glucose resu lt from 100 to 125 mg/dL suggests IMPAIRED HOMEOSTASIS per A.D.A. criteria. Neutrophils (Bld) [#/Vol] 2.4 10*3/uL 2.0-7.7 [facility] Work Phone: [phone] Neutrophils/100 WBC (Bld) 46.9 % 47-70 [facility] Work Phone: [phone] Potassium [Moles/Vol] 3.8 mmol/L 3.5-5.1 [facility] Work Phone: Protein [Mass/Vol] 5.6 g/dL 6.4-8.2 [facility] Work [facility]: Sodium [Moles/Vol] 141 mmol/L 136-145 [facility] Work Phone: WBC (Bld) [#/Vol] 5.0 10*3/uL 4.4-11.0 [facility] Work Phone: Blood erythrocytes count (nu mber/volume)on 09-08-2022 RBC (Bld) [#/Vol] 4.66 10*6/uL 4.2-5.[address] [address] [facility] Work Phone: Blood hemoglobin measurement (mass/volume)on 09-08-2022 Hemoglobin (Bld) [Mass/Vol] 12.6 g/dL 12.0-15.0 [facility] Work Phone: Blood lymphocytes/100 leukoc yteson 09-08-2022 Lymphocytes/100 WBC (Bld) 43.1 % 19-41 [facility] Work Phone: Blood monocytes/100 leukocyt eson 09-08-2022 Monocytes/100 WBC (Bld) 6.2 % 0-10 [facility] Work Phone: Blood platelet mean volumeon 09-08-2022 Platelet mean volume (Bld) [Entitic vol] 10.5 fL 6.2-12.0 [facility] Work Phone: Determination of erythrocyte mean corpuscular volume (MCV)on 09-08-2022 MCV (RBC) [Entitic vol] 85.4 fL 81-99 [facility] Work Phone: Glucose Glucometer (BldC) [M ass/Vol]on 09-08-2022 Glucose [Mass/Vol] 80 mg/dL 74-106 [facility] Work Phone: Comment on above: MANAGEMENT OF PATIEN T CARE PER NURSING PROTOCOL Hematocrit Auto (Bld) [Volum e fraction]on 09-08-2022 Hematocrit (Bld) [Volume fraction] 39.8 % 37-47 [facility] Work Phone: Laboratory - Chemistry and C hemistry - challengeon 09-08-2022 ALP [Catalytic activity/Vol] 67 U/L 45-117 [facility] Work Phone: ALT [Catalytic activity/Vol] 30 U/L 13-56 [facility] Work Phone: CO2 [Moles/Vol] 24.0 mmol/L 21.0-32.0 [facility] Work Phone: Globulin (S) [Mass/Vol] 2.5 g/dL 2.2-4.2 [facility] Work Phone: Urea nitrogen/Creatinine [Mass ratio] 45.3 mg/mg 10-20 [facility] Work Phone: Laboratory - Hematology and Cell countson 09-08-2022 Erythrocyte distribution width (RBC) [Entitic vol] 43.7 fL 35.1-43.9 [facility] Work Phone: Erythrocyte distribution width (RBC) [Ratio] 14.1 % 11.6-14.6 [facility] Work Phone: Immature granulocytes/100 WBC (Bld) 0.400 % 0.0-0.9 [facility] Work Phone: Comment on above: IG% - Immature Granu locytes (promyelocytes, myelocytes and metamyelocytes) > 1% indicates that a LEFT SHIFT is Present. MCH (RBC) [Entitic mass] 27.0 pg 27.0-32.0 [facility] Work Phone: Nucleated RBC/100 WBC (Bld) [Ratio] 0 % 0-5 [facility] Work Phone: MCHC Auto (RBC) [Mass/Vol]on 09-08-2022 MCHC (RBC) [Mass/Vol] 31.7 g/dL 32-36 [facility] Work Phone: No Panel Informationon 09-08 Estimated Creatinine Clearance Calc 163.43 ml/min [facility] Work Phone: Estimated GFR (MDRD) Amer 175 mL/min >60 [facility] Work Phone: Comment on above: GFR Calc Estimated GFR (MDRD) Non-Af Amer 144 mL/min >60 [facility] Work Phone: Comment on above: Non- GFR Calc Platelets bldon 09-08-2022 Platelets (Bld) [#/Vol] 190 10*3/uL 150-450 [facility] Work Phone: Serum or plasma albumin faizan urement (mass/volume)on 09-08-2022 Albumin [Mass/Vol] 3.1 g/dL 3.2-5.0 [facility] Work Phone: Serum or plasma albumin/glob ulin mass ratioon 09-08-2022 Albumin/Globulin [Mass ratio] 1.2 {ratio} 0.9-2.4 [facility] Work Phone: Serum or plasma calcium faizan urement (mass/volume)on 09-08-2022 Calcium [Mass/Vol] 8.3 mg/dL 8.5-10.1 [facility] Work Phone: Serum or plasma creatinine m easurement (mass/volume)on 09-08-2022 Creatinine [Mass/Vol] 0.46 mg/dL 0.55-1.02 [facility] Work Phone: Comment on above: The validity of the calculated GFR & GFRAA in patients over 70 years has not been determined. Clinical correlation is essential. Serum or plasma urea nitroge n measurement (mass/volume)on 09-08-2022 Urea nitrogen [Mass/Vol] 21 mg/dL 7-18 [facility] Work Phone: Thin prep Papanicolaou smear with manual screeningon 09-08-2022 Thin prep Papanicolaou smear with manual screening 18 U/L 15-37 [facility] Work Phone: Thin prep Papanicolaou smear with manual screening 5 5-15 [facility] Work Phone: [phone] Absolute lymphocyte counton 09-07-2022 Lymphocytes Auto (Unsp spec) [#/Vol] 2.07 10*3/uL 0.83-4.51 [facility] Work Phone: Basophil percentageon 2021 Basophils/100 WBC (Bld) 0.6 % 0-1 [facility] Work Phone: [phone] Chloride [Moles/Vol] 112 mmol/L 98-107 [facility] Work Phone: [phone] Eosinophils/100 WBC (Bld) 2.7 % 0-5 [facility] Work Phone: Glucose [Mass/Vol] 140 mg/dL 74-106 [facility] Work Phone: Comment on above: Fasting Glucose resu lt greater than or equal to 126 mg/dL suggests DIABETES MELLITUS per A.D.A. criteria. Neutrophils (Bld) [#/Vol] 2.7 10*3/uL 2.0-7.7 [facility] Work Phone: [phone] Neutrophils/100 WBC (Bld) 51.4 % 47-70 [facility] Work Phone: [phone] Potassium [Moles/Vol] 3.8 mmol/L 3.5-5.1 [facility] Work Phone: [phone] Sodium [Moles/Vol] 141 mmol/L 136-145 [facility] Work Phone: [phone] WBC (Bld) [#/Vol] 5.3 10*3/uL 4.4-11.0 [facility] Work Phone: Blood erythrocytes count (nu mber/volume)on 09-07-2022 RBC (Bld) [#/Vol] 5.08 10*6/uL 4.2-5.4 [facility] Work Phone: Blood hemoglobin measurement (mass/volume)on 09-07-2022 Hemoglobin (Bld) [Mass/Vol] 13.9 g/dL 12.0-15.0 [facility] Work Phone: Blood lymphocytes/100 leukoc yteson 09-07-2022 Lymphocytes/100 WBC (Bld) 39.4 % 19-41 [facility] Work Phone: Blood monocytes/100 leukocyt eson 09-07-2022 Monocytes/100 WBC (Bld) 5.5 % 0-10 [facility] Work Phone: Blood platelet mean volumeon 09-07-2022 Platelet mean volume (Bld) [Entitic vol] 10.3 fL 6.2-12.0 [facility] Work Phone: Determination of erythrocyte mean corpuscular volume (MCV)on 09-07-2022 MCV (RBC) [Entitic vol] 85.2 fL 81-99 [facility] Work Phone: Hematocrit Auto (Bld) [Volum e fraction]on 09-07-2022 Hematocrit (Bld) [Volume fraction] 43.3 % 37-47 [facility] Work Phone: INR in Blood by Coagulation assayon 09-07-2022 INR Coag (Bld) [Relative time] 1.0 {INR} [facility] Work Phone: Laboratory - Chemistry and C hemistry - challengeon 09-07-2022 CO2 [Moles/Vol] 24.0 mmol/L 21.0-32.0 [facility] Work Phone: Urea nitrogen/Creatinine [Mass ratio] 39.5 mg/mg 10-20 [facility] Work Phone: Laboratory - Coagulationon 11-08-2021 aPTT Coag (Bld) [Time] 27.9 s 24.1-36.2 [facility] Work Phone: PT Coag (PPP) [Time] 13.1 s 11.7-14.9 [facility] Work Phone: Laboratory - Hematology and Cell countson 09-07-2022 Erythrocyte distribution width (RBC) [Entitic vol] 42.9 fL 35.1-43.9 [facility] Work Phone: Erythrocyte distribution width (RBC) [Ratio] 13.8 % 11.6-14.6 [facility] Work Phone: Immature granulocytes/100 WBC (Bld) 0.400 % 0.0-0.9 [facility] Work Phone: Comment on above: IG% - Immature Granu locytes (promyelocytes, myelocytes and metamyelocytes) > 1% indicates that a LEFT SHIFT is Present. MCH (RBC) [Entitic mass] 27.4 pg 27.0-32.0 [facility] Work Phone: Nucleated RBC/100 WBC (Bld) [Ratio] 0 % 0-5 [facility] Work Phone: MCHC Auto (RBC) [Mass/Vol]on 09-07-2022 MCHC (RBC) [Mass/Vol] 32.1 g/dL 32-36 [facility] Work Phone: No Panel Informationon 09-07 Troponin I High Sensitivity 120 pg/mL 3.0-54.0 [facility] Work Phone: Comment on above: Please Note: New Lorna t Units and Gender Specific Reference Ranges. For more information see Policy Stat Procedure [place] High Sensitivity Troponin (TNIH) and attachments. Troponin I High Sensitivity 118 pg/mL 3.0-54.0 [facility] Work Phone: Comment on above: Please Note: New Lorna t Units and Gender Specific Reference Ranges. For more information see Policy Stat Procedure [place] High Sensitivity Troponin (TNIH) and attachments. Estimated Creatinine Clearance Calc 127.25 ml/min [facility] Work Phone: Estimated GFR (MDRD) Amer 134 mL/min >60 [facility] Work Phone: Comment on above: GFR Calc Estimated GFR (MDRD) Non-Af Amer 111 mL/min >60 [facility] Work Phone: Comment on above: Non- GFR Calc Platelets bldon 09-07-2022 Platelets (Bld) [#/Vol] 207 10*3/uL 150-450 [facility] Work Phone: Serum or plasma calcium faizan urement (mass/volume)on 09-07-2022 Calcium [Mass/Vol] 8.8 mg/dL 8.5-10.1 [facility] Work Phone: Serum or plasma creatinine m easurement (mass/volume)on 09-07-2022 Creatinine [Mass/Vol] 0.58 mg/dL 0.55-1.02 [facility] Work Phone: Comment on above: The validity of the calculated GFR & GFRAA in patients over 70 years has not been determined. Clinical correlation is essential. Serum or plasma urea nitroge n measurement (mass/volume)on 09-07-2022 Urea nitrogen [Mass/Vol] 23 mg/dL 7-18 [facility] Work Phone: Thin prep Papanicolaou smear with manual screeningon 09-07-2022 Thin prep Papanicolaou smear with manual screening 5 5-15 [facility] Work Phone: XR Foot - right AP and Later breanne 08-11-2021 IMPRESSION: No acute osseous abnormality identified. Editor Map: PSCB Transcribe Date/Time: Aug 11 2021 2:21P Dictated by : SUJATA MERAZ MD This examination was interpreted and the report reviewed and electronically signed by: SUJATA MERAZ MD on Aug 11 2021 2:24PM [facility] [[email or web address]] DIVISION OF RADIOLOGY * * *Final Report* * * DATE OF EXAM: Aug 11 2021 2:19PM WOX 5609 - XR FOOT 2V AP/LAT RT / PROCEDURE REASON: right foot pain * * * * Physician Interpretation * * * * Right foot radiographs HISTORY: 61 years old Clinical information: right foot pain 3-4 months ago stepped off a curb onto left heel pain in achilles area and is swollen TECHNIQUE: Images: XR FOOT 2V AP/LAT RT Comparison: None. RESULT: Findings: No fracture or dislocation. Plantar calcaneal spur. No soft tissue abnormality identified. DIVISION [facility] RADIOLOGY [facility] * * *Final Report* * * DATE OF EXAM: Aug 11 2021 2:19PM WOX 5609 - XR FOOT 2V AP/LAT RT / PROCEDURE REASON: right foot pain * * * * Physician Interpretation * * * * Right foot radiographs HISTORY: 61 years old Clinical information: right foot pain 3-4 months ago stepped off a curb onto left heel pain in achilles area and is swollen TECHNIQUE: Images: XR FOOT 2V AP/LAT RT Comparison: None. RESULT: Findings: No fracture or dislocation. Plantar calcaneal spur. No soft tissue abnormality identified. IMPRESSION IMPRESSION: No acute osseous abnormality identified. Editor Map: PSCRufino Transcribe Date/Time: Aug 11 2021 2:21P Dictated by : SUJATA MERAZ MD This examination was interpreted and the report reviewed and electronically signed by: SUJATA MERAZ MD on Aug 11 2021 2:24PM EST [facility] Radiology Study observation (narrative) [facility] XR Foot - right AP and Later alOrdered By: Cc Provider on 08-11-2021 [facility] COVID-19 virus antigen assay SARS-CoV-2 (COVID-19) Ag IA.rapid Ql (Resp) [facility] Work Phone: Vital Signs Date Time Vital Sign Value Performing Clinician Facility 03-25-2025 14:32-0400 Body height 142.24 cm Yenny Kauffman NP-C Work Phone: [facility] 02-07-2025 08:05-0400 Body height 142.24 cm Yenny Kauffman NP-C Work Phone: [facility] 02-07-2025 08:05-0400 Body mass index (BMI) [Ratio] 43.2 kg/m2 Yenny Jamari G[employer] OR W[employer] METER INSTALLER-C Work Phone: [facility] 02-07-2025 08:05-0400 Body temperature 97.3 [degF] Yenny Kauffman G[employer] W[employer] METER INSTALLER-C Work Phone: [facility] 02-07-2025 08:05-0400 Body weight 87.54 kg Yenny Kauffman G[employer] W[employer] METER INSTALLER-C Work Phone: [facility] 02-07-2025 08:05-0400 Diastolic blood pressure 89 mm[Hg] Yenny Kauffman G[employer] OR WATER METER INSTALLER-C Work Phone: [facility] 02-07-2025 08:05-0400 Heart rate 88 /min Yenny Kauffman G[employer] W[employer] METER INSTALLER-C Work Phone: [facility] 02-07-2025 08:05-0400 Respiratory rate 20 /min Yenny Kauffman G[employer] OR WATER METER INSTALLER-C Work Phone: [facility] 02-07-2025 08:05-0400 SaO2% (BldA) [Mass fraction] 96 % Yenny Kauffman G[employer] WATER METER INSTALLER-C Work Phone: [facility] 02-07-2025 08:05-0400 Systolic blood pressure 145 mm[Hg] Yenny Kauffman G[employer] WATER METER INSTALLER-C Work Phone: [facility] 12-04-2023 14:05-0500 Body height 142.2 cm Pacc 1 Work Phone: [facility] 12-04-2023 14:05-0500 Body temperature 97.11 [degF] Pacc 1 Work Phone: [facility] 12-04-2023 14:05-0500 Body weight 86.64 kg Pacc 1 Work Phone: [facility] 12-04-2023 14:05-0500 Diastolic blood pressure 64 mm[Hg] Pacc 1 Work Phone: [facility] 12-04-2023 14:05-0500 Heart rate 84 /min Pacc 1 Work Phone: [facility] 12-04-2023 14:05-0500 Respiratory rate 16 /min Pacc 1 Work Phone: [facility] 12-04-2023 14:05-0500 SaO2% (BldA) [Mass fraction] 96 % Pacc 1 Work Phone: [facility] 12-04-2023 14:05-0500 Systolic blood pressure 122 mm[Hg] Pacc 1 Work Phone: [facility] 05-13-2023 09:44-0400 Body height 142.24 cm [facility] Work Phone: 9(903)199-465692 [place] [address] 05-13-2023 09:44-0400 Body mass index (BMI) [Ratio] 43 kg/m2 [facility] Work Phone: 9(708)887-470692 [place] [address] 05-13-2023 09:44-0400 Body temperature 97.9 [degF] [facility] Work Phone: 6(995)983-595392 [place] [address] 05-13-2023 09:44-0400 Body weight 87.08 kg [facility] Work Phone: 0(997)821-116892 [place] [address] 05-13-2023 09:44-0400 Diastolic blood pressure 85 mm[Hg] [facility] Work Phone: 1(291)394-138692 [place] [address] 05-13-2023 09:44-0400 Heart rate 88 /min [facility] Work Phone: 6(971)012-278992 [place] [address] 05-13-2023 09:44-0400 Respiratory rate 18 /min [facility] Work Phone: 2(619)701-122592 [place] [address] 05-13-2023 09:44-0400 SaO2% (BldA) [Mass fraction] 96 % [facility] Work Phone: 9(620)114-807992 [place] [address] 05-13-2023 09:44-0400 Systolic blood pressure 118 mm[Hg] [facility] Work Phone: 7(164)298-739592 [place] [address] 03-15-2023 15:06-0400 Body mass index (BMI) [Ratio] 42.8 kg/m2 [facility] Work Phone: 6(981)720-189692 [place] [address] 03-15-2023 15:06-0400 Body weight 86.63 kg [facility] Work Phone: 7(867)315-873492 [place] [address] 03-15-2023 15:06-0400 Diastolic blood pressure 76 mm[Hg] [facility] Work Phone: 8(104)297-366092 [place] [address] 03-15-2023 15:06-0400 Heart rate 63 /min [facility] Work Phone: 4(736)657-007692 [place] [address] 03-15-2023 15:06-0400 SaO2% (BldA) [Mass fraction] 96 % [facility] Work Phone: 0(224)916-127592 [place] [address] 03-15-2023 15:06-0400 Systolic blood pressure 112 mm[Hg] [facility] Work Phone: 1(180)474-790692 [place] [address] 02-07-2023 09:38-0400 Body height 142.24 cm [facility] Work Phone: 4(989)051-121392 [place] [address] 02-07-2023 09:38-0400 Body mass index (BMI) [Ratio] 42.3 kg/m2 [facility] Work Phone: 7(813)494-081992 [place] [address] 02-07-2023 09:38-0400 Body temperature 97.6 [degF] [facility] Work Phone: 1(954)551-437392 [place] [address] 02-07-2023 09:38-0400 Body weight 85.72 kg [facility] Work Phone: 2(138)564-053792 [place] [address] 02-07-2023 09:38-0400 Diastolic blood pressure 74 mm[Hg] [facility] Work Phone: 3(266)590-610492 [place] [address] 02-07-2023 09:38-0400 Heart rate 79 /min [facility] Work Phone: 7(493)196-428292 [place] [address] 02-07-2023 09:38-0400 Respiratory rate 18 /min [facility] Work Phone: 0(476)200-953692 [place] [address] 02-07-2023 09:38-0400 SaO2% (BldA) [Mass fraction] 96 % [facility] Work Phone: 6(203)661-270992 [place] [address] 02-07-2023 09:38-0400 Systolic blood pressure 111 mm[Hg] [facility] Work Phone: 4(264)538-563092 [place] [address] 01-21-2023 09:53-0400 Diastolic blood pressure 100 mm[Hg] [facility] Work Phone: 0(561)485-758992 [place] [address] 01-21-2023 09:53-0400 Heart rate 75 /min [facility] Work Phone: 8(085)192-468192 [place] [address] 01-21-2023 09:53-0400 Systolic blood pressure 148 mm[Hg] [facility] Work Phone: 1(579)110-026392 [place] [address] 01-21-2023 09:52-0400 Body temperature 97.6 [degF] [facility] Work Phone: 8(369)117-235292 [place] [address] 01-21-2023 09:52-0400 Respiratory rate 16 /min [facility] Work Phone: 7(873)228-820992 [place] [address] 01-21-2023 09:52-0400 SaO2% (BldA) [Mass fraction] 99 % [facility] Work Phone: 8(122)453-006992 [place] [address] 01-21-2023 06:00-0400 Body mass index (BMI) [Ratio] 43.4 kg/m2 [facility] Work Phone: 4(006)938-108792 [place] [address] 01-21-2023 06:00-0400 Body weight 88 kg [facility] Work Phone: 3(646)120-460192 [place] [address] 01-20-2023 15:53-0400 Body height 142.24 cm [facility] Work Phone: 2(254)117-906992 [place] [address] 01-20-2023 15:16-0400 Body temperature 97.6 [degF] [facility] 01-20-2023 15:16-0400 Diastolic blood pressure 100 mm[Hg] [facility] 01-20-2023 15:16-0400 Heart rate 80 /min [facility] 01-20-2023 15:16-0400 Respiratory rate 18 /min [facility] 01-20-2023 15:16-0400 SaO2% (BldA) [Mass fraction] 98 % [facility] 01-20-2023 15:16-0400 Systolic blood pressure 120 mm[Hg] [facility] 01-20-2023 12:22-0400 Body height 142.24 cm [facility] 01-20-2023 12:22-0400 Body mass index (BMI) [Ratio] 43 kg/m2 [facility] 01-20-2023 12:220400 Body weight 87.08 kg [facility] 09-08-2022 12:19-0500 Body temperature 98.5 [degF] [facility] Work Phone: [facility] Work Phone: 09-08-2022 12:19-0500 Diastolic blood pressure 78 mm[Hg] [facility] Work Phone: [facility] Work Phone: 09-08-2022 12:19-0500 Heart rate 84 /min [facility] Work Phone: [facility] Work Phone: 09-08-2022 12:19-0500 Respiratory rate 14 /min [facility] Work Phone: [facility] Work Phone: 09-08-2022 12:19-0500 SaO2% (BldA) [Mass fraction] 97 % [facility] Work Phone: [facility] Work Phone: 09-08-2022 12:19-0500 Systolic blood pressure 137 mm[Hg] [facility] Work Phone: [facility] Work Phone: 09-08-2022 06:00-0500 Body weight 82.7 kg [facility] Work Phone: [facility] Work Phone: 09-07-2022 16:21-0500 Body height 142.24 cm [facility] Work Phone: [facility] Work Phone: 09-07-2022 16:21-0500 Body mass index (BMI) [Ratio] 39.2 kg/m2 [facility] Work Phone: [facility] Work Phone: 09-07-2022 13:02-0500 Body height 142.24 cm [facility] Work Phone: 09-07-2022 13:02-0500 Body mass index (BMI) [Ratio] 40.1 kg/m2 [facility] Work Phone: 09-07-2022 13:02-0500 Body temperature 98 [degF] [facility] Work Phone: 09-07-2022 13:02-0500 Body weight 81.19 kg [facility] Work Phone: 09-07-2022 13:02-0500 Diastolic blood pressure 78 mm[Hg] [facility] Work Phone: 09-07-2022 13:02-0500 Heart rate 87 /min [facility] Work Phone: 09-07-2022 13:02-0500 Respiratory rate 16 /min [facility] Work Phone: 09-07-2022 13:02-0500 SaO2% (BldA) [Mass fraction] 96 % [facility] Work Phone: 09-07-2022 13:02-0500 Systolic blood pressure 132 mm[Hg] [facility] Work Phone: Encounters Encounter Date Encounter Type Care Provider Facility Start: 05-13-2025 ambulatory Bob Dueñas Facility :[facility] Start: 04-10-2025 ambulatory Jennie Gutierrez Facility: [facility] Start: 03-25-2025 End: 03-25-2025 Patient encounter procedure Jennie CLAYTON -[facility] Work Phone: Start: 03-25-2025 End: 03-25-2025 ambulatory Yenny CLAYTON Work Phone: [facility] Work Phone: Start: 03-21-2025 End: 03-21-2025 ambulatory Yenny Kauffman G[employer]ER INSTALLER-C Work Phone: -Pulmonary Services/Neurology Start: 03-21-2025 End: 03-21-2025 Patient encounter procedure VADIM Hunt -Pulmonary Services/Neurology Work Phone: Start: 03-21-2025 End: 03-21-2025 ambulatory Dolores Hunt Facility:[facility] Start: 03-14-2025 End: 03-14-2025 ambulatory Yenny Kauffman G[employer] W[employer] MET[employer] INSTALLER-C Work Phone: [facility] Work Phone: Start: 03-14-2025 End: 03-14-2025 Patient encounter procedure [facility] Yenny Kauffman G[employer] OR WATER METER INSTALLER-C -Outpatient Breast Imaging Work Phone: Start: 03-14-2025 End: 03-14-2025 ambulatory [facility] Yenny Kauffman Facility:[facility] Start: 02-25-2025 End: 02-25-2025 ambulatory Yenyn Kauffman G[employer] W[employer] MET[employer] INSTALLER-C Work Phone: [facility] Work Phone: Start: 02-25-2025 End: 02-25-2025 Patient encounter procedure VADIM Hunt -Sleep Lab Work Phone: Start: 02-25-2025 End: 02-25-2025 ambulatory Dolores Hunt Facility:[facility] Start: 02-07-2025 End: 02-07-2025 Patient encounter procedure VADIM Hunt -[facility] Work Phone: Start: 02-07-2025 End: 02-07-2025 ambulatory Dolores Hunt [facility] Start: 01-14-2025 End: 01-14-2025 Patient encounter procedure [facility] Yenny Kauffman G[employer] W[employer] METER INSTALLER-C -Laboratory Yesica Smith Start: 01-14-2025 End: 01-14-2025 ambulatory [facility] Yenny Kauffman Facility:[facility] Start: 07-03-2024 End: 07-03-2024 ambulatory Luís BURTON Facility:[facility] Start: 07-02-2024 End: 07-02-2024 ambulatory Martín BURTON Facility:[facility] Start: 06-18-2024 End: 06-18-2024 ambulatory [facility] Yenny Jamari Facility:[facility] Start: 06-05-2024 End: 06-05-2024 ambulatory [facility] Facility[facility] Start: 05-21-2024 End: 05-21-2024 ambulatory [facility] Facility[facility] Start: 05-07-2024 End: 05-07-2024 ambulatory [facility] Facility[facility] Start: 05-07-2024 End: 05-07-2024 ambulatory [facility] Facility:[facility] Start: 04-14-2024 End: 04-14-2024 Emergency department patient visit [facility] Facility:[facility] Start: 03-12-2024 End: 03-12-2024 ambulatory YENNY KAUFFMAN TAKE OUT WAITER-KINDERGARTEN TUTOR Facility:[facility] Start: 03-12-2024 End: 03-12-2024 Patient encounter procedure YENNYJONATHAN KAUFFMAN TAKE OUT WAITER-KINDERGARTEN TUTOR [facility] Start: 12-22-2023 End: 12-22-2023 ambulatory YENNY KAUFFMAN Facility:[facility] Start: 12-22-2023 End: 12-22-2023 Patient encounter procedure Corby Power Work Phone: Podiatry Comment on above: Open wound of toe, i nitial encounter (Primary Dx) Start: 12-11-2023 Telephone encounter Corby Escobar Work Phone: Podiatry Comment on above: Patient Question Start: 12-08-2023 End: 12-08-2023 ambulatory CAYLA CHOWDHURY Facility:[facility] Start: 12-04-2023 End: 12-04-2023 Admission to [facility] Pac [facility] 1 Work Phone: CC SIMONE Start: 12-04-2023 End: 12-04-2023 ambulatory Pac Simone 1 Work Phone: Pre Anesthesia Comment on above: Preoperative examina tion (Primary Dx); Chronic bronchitis with COPD (chronic obstructive pulmonary disease) (HCC); Fatty liver; Gastroesophageal reflux disease, unspecified whether esophagitis present; Valvular heart disease; Primary hypertension; Mixed hyperlipidemia; Morbidly obese (HCC) Start: 12-04-2023 End: 12-04-2023 Preprocedural examination done [place] [address] Work Phone: [facility] Work Phone: Start: 11-14-2023 End: 11-14-2023 ambulatory [facility] Facility:[facility] Start: 11-13-2023 Telephone encounter Corby Escobar Work Phone: Podiatry Comment on above: Patient Update Start: 11-13-2023 End: 11-13-2023 ambulatory [facility] Facility:[facility] Start: 11-13-2023 End: 11-13-2023 Patient encounter procedure Corby Power Work Phone: Podiatry Comment on above: Onychomycosis (Prima ry Dx) Start: 09-08-2023 End: 09-08-2023 ambulatory [facility] Facility:[facility] Start: 08-15-2023 End: 08-15-2023 ambulatory [facility] Facility:[facility] Start: 08-15-2023 End: 08-15-2023 Patient encounter procedure Corby Power Work Phone: Podiatry Comment on above: Onychomycosis (Prima ry Dx); Diminished pulses in lower extremity; Pain in toe of left foot; Pain in toe of right foot Start: 05-13-2023 End: 05-13-2023 Emergency department patient visit [facility] Start: 03-15-2023 End: 03-15-2023 Patient encounter procedure [facility] Work Phone: [facility] Work Phone: Start: 03-08-2023 End: 03-08-2023 Patient encounter procedure [facility] Start: 02-08-2023 End: 02-08-2023 ambulatory [facility] Work Phone: [facility] Work Phone: Start: 02-08-2023 End: 02-08-2023 Patient encounter procedure [facility] Work Phone: [facility]-Pulmonary Services/Neurology Start: 02-07-2023 End: 02-07-2023 Patient encounter procedure [facility] Work Phone: [facility]-Pulmonary Medicine [facility] Start: 01-21-2023 Non-patient / Non-visit [facility] Work Phone: [facility] Inpatient Physicians Start: 01-21-2023 Non-patient / Non-visit [facility] Work Phone: [facility] Start: 01-20-2023 End: 01-20-2023 Non-patient / Non-visit [facility] Work Phone: [facility] Start: 01-20-2023 End: 01-21-2023 Evaluation and management of inpatient [facility]-Progressive Care Unit Start: 01-20-2023 End: 01-21-2023 observation encounter [facility] Work Phone: [facility] Work Phone: Start: 09-08-2022 Non-patient / Non-visit [facility] Work Phone: [facility] [facility] Start: 09-07-2022 Non-patient / Non-visit [facility] Work Phone: [facility] Start: 09-07-2022 Non-patient / Non-visit [facility] Work Phone: [facility] Start: 09-07-2022 End: 09-08-2022 Evaluation and management of inpatient [facility] Start: 02-03-2022 End: 02-03-2022 Patient encounter procedure [facility] Start: 08-11-2021 End: 08-11-2021 Subsequent hospital visit by physician [facility] Work Phone: Radiology Procedures Date Procedure Procedure Detail Performing Clinician Start: 03-14-2025 Screening mammography Blaine CLAYTON Work Phone: Start: 03-26-2024 Lipid 1996 panel - S williams or Plasma [facility] Work Phone: Start: 05-13-2023 Plain x-ray of elbow [facility] Work Phone: Start: 01-20-2023 Plain chest X-ray Start: 01-20-2023 CT of head without contrast Start: 01-17-2023 Lipid 1996 panel - S williams or Plasma Corby Power Work Phone: Start: 09-07-2022 Plain chest X-ray Start: 02-03-2022 Screening mammography Start: 08-11-2021 Radiologic examinati on foot 2 views [facility] Provider Start: 04-18-1982 Hysterectomy TED VALENCIA CNP H/O: hysterectomy H/O: hysterectomy [facility] Work Phone: Viral antigen assay Plan of Treatment Date Care Activity Detail Author Start: 03-26-2029 Lipid panel Lipid Screening [facility] Start: 02-14-2028 HPV Testing HPV Testing [facility] Start: 02-14-2028 Pap Testing Pap Testing [facility] Start: 02-14-2028 Screening for malign ant neoplasm of cervix [facility] Start: 01-18-2028 Lipid 1996 panel - S williams or Plasma Lipid Screening [facility] Start: 01-18-2028 Lipid panel Lipid Screening [facility] Start: 03-26-2027 Diabetes Screening Diabetes Screenin g [facility] Start: 01-17-2026 Diabetes Screening Diabetes Screenin g [facility] Start: 03-21-2025 Measurement of respiratory function [facility] Start: 12-03-2024 BP Controlled (<130/80) BP Controlle d (<130/80) [facility] Start: 06-02-2024 Covid-19 Vaccine ( season) Covid-19 Vaccine ( season) [facility] Start: 06-02-2024 Influenza vaccination Influenza Vacc ine (#1) [facility] Start: 2024 Advance Directive Discussion Advance Directive Discussion [facility] Start: 2024 Screening for osteoporosis Bone Density Screening [facility] Start: 02-26-2024 Urine microalbumin profile DTaP,Tdap,Td Vaccine (2 - Td or Tdap) [facility] Start: 10-02-2023 Depression Assessment Depression Ass essment [facility] Start: 06-02-2023 Covid-19 Vaccine ( season) Covid-19 Vaccine () [facility] Start: 06-02-2023 Influenza vaccination Influenza Vacc ine (#1) [facility] Start: 05-13-2023 Plain x-ray of hand Hand Min 3 Views [facility] Start: 05-13-2023 Radiologic examinati on of knee Knee 4 or More Views [facility] Start: 05-13-2023 XR Hand GE 3 Views [facility] Start: 05-13-2023 XR Knee GE 4 Views [facility] Start: 01-21-2023 Patient discharge [facility] Start: 01-20-2023 [facility] Start: 01-20-2023 Assessment of risk o f venous thromboembolism [facility] Start: 01-20-2023 Incentive spirometry [facility] Start: 01-20-2023 Insertion of cathete r into peripheral vein [facility] Start: 01-20-2023 Measuring intake and output [facility] Start: 01-20-2023 Oxygen therapy [facility] Start: 01-20-2023 Providing care accor ding to standard [facility] Start: 01-20-2023 Tobacco use cessatio n education [facility] Start: 01-20-2023 [facility] Start: 01-20-2023 Following clinical pathway protocol [facility] Start: 01-20-2023 Verification routine [facility] Start: 01-20-2023 Admission procedure [facility] Start: 01-20-2023 Troponin I measurement [facility] Start: 10-02-2022 Depression Assessment Depression Ass [facility] Start: 09-08-2022 Patient discharge [facility] Work Phone: Start: 09-08-2022 Notification of physician [facility] Work Phone: Start: 09-08-2022 Patient education [facility] Work Phone: Start: 09-08-2022 Pulse taking [facility] Work Phone: Start: 09-08-2022 Taking patient vital signs [facility] Work Phone: Start: 09-08-2022 Wound care [facility] Work Phone: Start: 09-08-2022 [facility] Work Phone: Start: 09-07-2022 Catheterization of vein [facility] Work Phone: Start: 09-07-2022 Medication not administered [facility] Work Phone: Start: 09-07-2022 [facility] Work Phone: Start: 09-07-2022 Care regimes management [facility] Work Phone: Start: 09-07-2022 Notification of physician [facility] Work Phone: Start: 09-07-2022 Assessment of risk o f venous thromboembolism [facility] Work Phone: Start: 09-07-2022 Catheterization of vein [facility] Work Phone: Start: 09-07-2022 Incentive spirometry [facility] Work Phone: Start: 09-07-2022 Insertion of cathete r into peripheral vein [facility] Work Phone: Start: 09-07-2022 Measuring intake and output [facility] Work Phone: Start: 09-07-2022 Providing care accor ding to standard [facility] Work Phone: Start: 09-07-2022 Provision of activit y privileges [facility] Work Phone: Start: 09-07-2022 Referral to spinner frame [facility] Work Phone: Start: 09-07-2022 End: 09-07-2022 [facility] Work Phone: Start: 09-07-2022 End: 09-07-2022 Following clinical pathway protocol [facility] Work Phone: Start: 09-07-2022 Admission procedure [facility] Work Phone: Start: 09-07-2022 [facility] Work Phone: Start: 09-07-2022 [facility] Work Phone: Start: 2019 RSV Vaccine (1 - 1-d ose 60+ series) RSV Vaccine (1 - 1-dose 60+ series) [facility] Start: 2019 RSV Vaccine (1 - Ris k 60-74 years 1-dose series) RSV Vaccine (1 - Risk 60-74 years 1-dose series) [facility] Start: 04-23-2016 Pneumococcal vaccination Pneum ococcal Vaccine (2 of 2 - PCV) [facility] Start: 04-23-2016 Pneumococcal Vaccine : 65+ (2 of 2 - PCV) Pneumococcal Vaccine: 65+ (2 of 2 - PCV) [facility] Start: 2009 Shingrix Vaccine (1 of 2) Kirk grix Vaccine (1 of 2) [facility] Start: 2004 Cologuard (FIT-DNA) Cologuard (FIT-D NA) [facility] Start: 2004 Colonoscopy Colonoscopy [facility] Start: 2004 Colorectal Cancer Screening Colorectal Cancer Screening [facility] Start: [address] Colonography [facility] Start: 2004 Fecal Occult Blood Fecal Occult Bloo d [facility] Start: 2004 Screening for malign ant neoplasm of colon [facility] Start: 2004 Sigmoidoscopy Sigmoidoscopy [facility] Start: 1999 Mammography Mammogram Screening [facility] Start: 1999 Screening for malign ant neoplasm of breast Mammogram Screening [facility] Start: 1989 Zoledronic acid therapy Alpha- 1 Antitrypsin Deficiency Screening [facility] Start: 1977 Annual PCP Team Stock Selector rosalba Disease Visit Annual PCP Team Chronic Disease Visit [facility] Start: 1977 Anxiety Screening Anxiety Screening [facility] Start: 1977 BP Controlled (<130/80) BP Controlle d (<130/80) [facility] Start: 1977 Depression Screening Depression Scre ening [facility] Start: 1977 Hepatitis C Screening Hepatitis C [facility] Start: 1977 Hepatitis C screening Hepatitis C [facility] Start: 1977 HIV Screening HIV Screening [facility] Start: 1977 HIV screening HIV Screening [facility] Start: 1977 Spirometry Spirometry [facility] Start: 1959 Covid-19 Vaccine (#1) Covid-19 Vacci ne (#1) [facility] Measurement of respiratory function [facility] Patient Education ED Abrasion ED Contusion, Lower Extremity ED Contusion, Upper Extremity [facility] Work Phone: Patient referral [facility] Work Phone: Polysomnography [facility] End: 08-15-2024 PVR ANK [facility] Vascular Lab Routine Diminished pulses in lower extremity Onychomycosis 1 Occurrences starting 08/15/2023 until 08/15/2024 [facility] Work Phone: Comment on above: 1 Occurrences starti ng 08/15/2023 until 08/15/2024 Radionuclide gastric emptying study [facility] [place] Immunizations Immunization Date Immunization Notes Care Provider Iwona nguyen 09-08-2022 influenza, injectabl e, quadrivalent, preservative free Yenny Kauffman [employer] Work Phone: [facility] 09-08-2022 influenza, seasonal, injectable [facility] Work Phone: [facility] 09-08-2022 influenza virus vaccine, unspecified formulation Corby Power Work Phone: [facility] Payers Date Payer Category Payer Self-pay [id number] 2025 Self-pay [id number] 2024 Unknown [id number] 2024 Unknown [id number] 2024 Unknown [id number] 2024 Self-pay [id number] 2024 Unknown [id number] 2014 Medicaid [id number] 1960 Unknown [id number] 2.16.8 [id number] Unknown [id number] Unknown [id number] 2.16.8 [id number] Unknown [id number] 2.16.8 [id number] Unknown [id number] 2.16.8 [id number] Unknown [id number] 2.16.8 [id number] Unknown [id number] 2.16.8 [id number] Unknown [id number] 2.16.8 [id number] Unknown [id number] 2.16.8 [id number] Unknown [id number] 2.16.8 [id number] Unknown [id number] 2.16.8 [id number] Unknown [id number] 2.16.8 [id number] Unknown [id number] 2.16.8 [id number] Unknown [id number] 2.16.8 [id number] Unknown [id number] 2.16.8 [id number] Unknown [id number] 2.16.8 [id number] Unknown [id number] 2.16.8 [id number] Unknown [id number] 2.16.8 [id number] Social History Date Type Detail Facility Start: 11-25-2020 End: 05-13-2023 Tobacco smoking status NHIS Unknown if ever smoked [facility] Start: 11-25-2020 None [facility] Start: 11-25-2020 Spouse/ Signif icant Other [facility] Start: 1960 Sex Assigned At Female W [facility] Start: 12-04-2023 End: 03-26-2025 Tobacco smoking status Ex-smoker (finding) [facility] Start: 09-03-2021 Tobacco smoking status NHIS Never smoked tobacco [facility] Work Phone: Start: 09-03-2021 End: 12-04-2023 Tobacco use and exposure Smokeless tobacco non-user [facility] Work Phone: Start: 01-25-2009 End: 08-15-2023 Alcohol intake Current non-drinker of alcohol (finding) [facility] Start: 06-02-2021 End: 08-15-2023 History of Social function [facility] Start: 06-02-2021 End: 08-15-2023 Tobacco use panel [facility] National Score (1-100), lower number is lower risk 91 [facility] Start: 1960 Sex Assigned At Not on file [facility] Start: 1975 End: 10-02-2003 History of tobacco use Current smoker [facility] Work Phone: Start: 1975 End: 10-02-2003 History of tobacco use Cigarette Smoker [facility] Work Phone: Goals Date Patient Goal Desired Activity /State Functional Status Date Assessment Result Facility 01-21-2023 Functional status Ambulates;Up ad adrianne [facility] Work Phone: 09-08-2022 Functional status [facility]: 09-08-2022 Functional status None [facility] Work Phone: Mental Status Date Assessment Result Facility 01-21-2023 Cognitive function Voice/Name [facility] Work Phone: 01-20-2023 Cognitive function Level Of Cons ciousness Awake;Alert;Appropriate;Follow s Commands [facility] Work Phone: 09-08-2022 Cognitive function Voice/Name [facility] Work Phone: 09-07-2022 Cognitive function Level Of Cons ciousness Awake;Alert;Appropriate [facility] Work Phone: Clinical Notes 08-11-2021 to 02-07-2025 Note Date & Type Note Facility 02-07-2025 Evaluation note Diagnosis Onset Date Resolution Chronic bronchitis chronic January 92024 1:46pm SOURAV (obstructive sleep apnea) suspected February 07, 2025 1: 46pm [facility] Work Phone: [phone] Evaluation note* Diagnosis Onset Date Resolution Status Admit Date Chronic bronchitis chronic January 1:46pm SOURAV (obstructive sleep apnea) suspec thiago February 07, 2025 1:46pm Nausea acute March 25 2:10pm Epigastric pain chronic March 2:10pm GERD (gastroesophageal reflu x disease) chronic March 25, 2025 2:10pm [facility] Work Phone: [phone] Note ORIGINAL FROM: [address] [address] PROCEDURE FOR: BRANDI SAUCEDA [address] [place] [id number] Home: PID#: [id number] Exam#: [id number] : 1960 Age: 63 TO: YENNY KAUFFMAN [facility] [address] [address] Fax: NO FAX EXAMINATION: SCREENING DIGITAL BILATERAL MAMMOGRAM WITH TOMOSYNTHESIS, 03/12/2024 11:23 am TECHNIQUE: Screening mammography of the bilateral breasts was performed with tomosynthesis. 2D standard and 3D tomosynthesis combination imaging performed through both breasts in the MLO and CC projection. Computer aided detection was utilized in the interpretation of this exam. COMPARISON: March 08, 2023, September 04, 2017, April 22, 2016 HISTORY: Breast cancer screening. FINDINGS: BREAST DENSITY: Scattered fibroglandular tissue There left biopsy marker clips. Bilateral benign-type calcifications are noted. There is no significant mass, architectural distortion or microcalcification. Fibroglandular pattern is stable. IMPRESSION: No mammographic evidence of malignancy. Continued screening with annual mammograms is recommended. Vipul Warezick risk calculations, generated with the history provided, report this patient's 10 year risk and lifetime risk for developing breast cancer at 2.8% and 6%, respectively. Based on this assessment tool, if the patient's calculated lifetime risk is below 20%, then the patient is considered at average risk for developing breast cancer. If the patient's calculated lifetime risk is at or above 20%, then the patient is considered high risk for developing breast cancer and may be a candidate for supplemental breast MRI screening in addition to annual mammographic screening per the [place] [employer]. BIRADS: MAMMOGRAM BI-RADS: 2: Benign finding RECALL: 1 year screening RECALL TYPE: mammo LETTER SENT: Normal BI-RADS 1 and 2 Interpreted by: Kitty Cruz Preliminary Report By: Kitty Cruz Electronically signed By Kitty Cruz Dictated Date: 03/12/2024 3:25:08 PM Prelim Date: 03/12/2024 3:40:01 PM Sign Date: 03/12/2024 3:40:01 PM Ordering Provider: YENNY KAUFFMAN Master Machinist: WILFREDO ADAMS RT(R) RDMS letter sent: Normal BI-RADS 1 and 2 Mammogram BI-RADS: 2 [facility]03-22-2024 Instructions* Patient Instructions* Corby Power - 12/22/2023 11:04 AM EDT Your wound appears to be healing nicely Continue with soaking of the toes daily for the next 2-3 weeks or however long it takes for the toeto be completely healed Continue with topical antibiotic Corby Power DPM [facility] NoteHNO ID: [id number] Author: CORBY POWER, ? Service: ? Author Type: Physician Type: Progress Notes Filed: 12/22/2023 11:06 Note Text: FOLLOW UP PODIATRIC OFFICE VISIT Chief Complaint: This 63 year old who presents for follow up:nail matrixectomy, toes 1-5 b/l feet Patient presents to clinic for follow-up matrixectomy of toes 1-5 b/l Patient denies drainage Reports some discomfort but improving Overall doing well PAIN EVALUATION 12/22/2023 1043 Pain Level: 6 Pain Location: Other: See Comment bilateral foot toes Description: Aching;Throbbing Duration Amount of Time: 2 Duration Units: Weeks Frequency: Intermittent Intervention/Comfort measure: Relaxation Hemoglobin A1C Date Value Ref Range Status 01/17/2023 5.8 (H) 4.3 - 5.6 % Final Comment: [place] [employer] guidelines indicate that patients with HgbA1c in the range 5.7-6.4% are at increased risk for development of diabetes, and intervention by lifestyle modification may be beneficial. HgbA1c greater or equal to 6.5% is considered diagnostic of diabetes. PCP: Yenny Kauffman NP PAST MEDICAL HISTORY Diagnosis Date Chronic bronchitis with COPD (chronic obstructive pulmonary disease) (HCC) GERD (gastroesophageal reflux disease) HTN (hypertension) Mixed hyperlipidemia Osteoarthritis Osteoporosis Sciatica Valvular heart disease Current Outpatient Medications Medication Sig Lactobacillus acidophilus (PROBIOTIC ORAL) Take 1 capsule by mouth once daily. MULTIVITAMIN ORAL Take 1 tablet by mouth once daily. pantoprazole DR (PROTONIX) 40 mg tablet Take 1 tablet by mouth once daily. aspirin, enteric coated (ASPIRIN, ENTERIC COATED) 81 mg EC tablet Take 81 mg by mouth once daily. Ascorbic Acid (VITAMIN C) 1,000 mg tablet Take 1,000 mg by mouth once daily. sucralfate (CARAFATE) 1 gram tablet Take 1 tablet by mouth every 12 hours. triamcinolone acetonide (KENALOG) 0.1 % cream Apply 1 application twice daily at shoulder excision scar as needed for sting/itch. metoprolol succinate ER (TOPROL XL) 25 mg 24 hr tablet Take 1 tablet by mouth every afternoon. ergocalciferol 50,000 unit capsule (VITAMIN D2, DRISDOL) Take 1 capsule by mouth one time a week. fluticasone (FLONASE) 50 mcg/actuation nasal spray Inhale 2 sprays in each nostril at night atorvastatin (LIPITOR) 20 mg tablet Take 20 mg by mouth once daily. cyclobenzaprine (FLEXERIL) 5 mg tablet Take 5 mg by mouth daily at bedtime. lisinopril (ZESTRIL, PRINIVIL) 10 mg tablet Take 20 mg by mouth once daily. loratadine (CLARITIN) 10 mg tablet Take 10 mg by mouth once daily. montelukast (SINGULAIR) 10 mg tablet Take 10 mg by mouth once daily. No current facility-administered medications for this visit. ALLERGIES Allergen Reactions Aspirin GI Upset vomitting and stomach pains Codeine GI Upset PAST SURGICAL HISTORY Procedure Laterality Date APPENDECTOMY BX BREAST PERC VACUUM/ROTN Left 01/19/2009 VAGINAL HYSTERECTOMY UTERUS 250 GM/< 1982 Hysterectomy, vaginal Physical Exam: OBJECTIVE: Constitutional: Pt is a well developed 63 year old female who is alert, oriented, cooperative and in no apparent distress. Eyes: Following during examination. No redness or drainage. Respiratory: RR normal and nonlabored. Even breathing. No evidence of distress. Psychology: Patient is engaged during conversation. Normal affect and mood. Does not appear depressed or anxious. NVSI unchanged from previous visit. Dermatological: Toes 1-5 b/l have nails removed. Nail beds appear to be healing without infection ASSESSMENT: (S91.109A) Open wound of toe, initial encounter (primary encounter diagnosis) PLAN: Patient is s/p total nail matrixectomy 1-5 b/l Toes appear to be healing without infection Continue with local wound care until all healing has achieved Patient is very pleased with outcome Corby Power [facility]03-22-2024 History of Present illness Narrative* Corby Power - 12/22/2023 11:01 AM EDT Images from the original note were not included. FOLLOW UP PODIATRIC OFFICE VISIT Chief Complaint: This 63 year old who presents for follow up:nail matrixectomy, toes 1-5 b/l feet Patient presents to clinic for follow-up matrixectomy of toes 1-5 b/l Patient denies drainage Reports some discomfort but improving Overall doing well PAIN EVALUATION 12/22/2023 1043 Pain Level: 6 Pain Location: Other: See Comment bilateral foot toes Description: Aching;Throbbing Duration Amount of Time: 2 Duration Units: Weeks Frequency: Intermittent Intervention/Comfort measure: Relaxation Hemoglobin A1C Date Value Ref Range Status 01/17/2023 5.8 (H) 4.3 - 5.6 % Final Comment: [place] [employer] guidelines indicate that patients with HgbA1c in the range 5.7-6.4% are at increased risk for development of diabetes, and intervention by lifestyle modification may be beneficial. HgbA1c greater or equal to 6.5% is considered diagnostic of diabetes. PCP: Yenny Kauffman NP PAST MEDICAL HISTORY Diagnosis Date Chronic bronchitis with COPD (chronic obstructive pulmonary disease) (HCC) GERD (gastroesophageal reflux disease) HTN (hypertension) Mixed hyperlipidemia Osteoarthritis Osteoporosis Sciatica Valvular heart disease Current Outpatient Medications Medication Sig Lactobacillus acidophilus (PROBIOTIC ORAL) Take 1 capsule by mouth once daily. MULTIVITAMIN ORAL Take 1 tablet by mouth once daily. pantoprazole DR (PROTONIX) 40 mg tablet Take 1 tablet by mouth once daily. aspirin, enteric coated (ASPIRIN, ENTERIC COATED) 81 mg EC tablet Take 81 mg by mouth once daily. Ascorbic Acid (VITAMIN C) 1,000 mg tablet Take 1,000 mg by mouth once daily. sucralfate (CARAFATE) 1 gram tablet Take 1 tablet by mouth every 12 hours. triamcinolone acetonide (KENALOG) 0.1 % cream Apply 1 application twice daily at shoulder excision scar as needed for sting/itch. metoprolol succinate ER (TOPROL XL) 25 mg 24 hr tablet Take 1 tablet by mouth every afternoon. ergocalciferol 50,000 unit capsule (VITAMIN D2, DRISDOL) Take 1 capsule by mouth one time a week. fluticasone (FLONASE) 50 mcg/actuation nasal spray Inhale 2 sprays in each nostril at night atorvastatin (LIPITOR) 20 mg tablet Take 20 mg by mouth once daily. cyclobenzaprine (FLEXERIL) 5 mg tablet Take 5 mg by mouth daily at bedtime. lisinopril (ZESTRIL, PRINIVIL) 10 mg tablet Take 20 mg by mouth once daily. loratadine (CLARITIN) 10 mg tablet Take 10 mg by mouth once daily. montelukast (SINGULAIR) 10 mg tablet Take 10 mg by mouth once daily. No current facility-administered medications for this visit. ALLERGIES Allergen Reactions Aspirin GI Upset vomitting and stomach pains Codeine GI Upset PAST SURGICAL HISTORY Procedure Laterality Date APPENDECTOMY BX BREAST PERC VACUUM/ROTN Left 01/19/2009 VAGINAL HYSTERECTOMY UTERUS 250 GM/< 1982 Hysterectomy, vaginal Physical Exam: OBJECTIVE: Constitutional: Pt is a well developed 63 year old female who is alert, oriented, cooperative and in no apparent distress. Eyes: Following during examination. No redness or drainage. Respiratory: RR normal and nonlabored. Even breathing. No evidence of distress. Psychology: Patient is engaged during conversation. Normal affect and mood. Does not appear depressed or anxious. NVSI unchanged from previous visit. Dermatological: Toes 1-5 b/l have nails removed. Nail beds appear to be healing without infection ASSESSMENT: (S91.109A) Open wound of toe, initial encounter (primary encounter diagnosis) PLAN: Patient is s/p total nail matrixectomy 1-5 b/l Toes appear to be healing without infection Continue with local wound care until all healing has achieved Patient is very pleased with outcome Corby Power DPM * Juany Day RN - 12/22/2023 10:41 AM EDT AMB ROOMING INTAKE FLOWSHEET DATA Pain Pain Level: 6 Pain Location: Other: See Comment (bilateral foot toes) Description: Aching, Throbbing Duration Amount of Time: 2 Duration Units: Weeks Frequency: Intermittent Intervention/Comfort measure: Relaxation Patient presents with: Left Foot - Established Patient, Follow Up, Post Op Right Foot - Established Patient, Follow Up, Post Op Patient presents for follow up of matrixectomy to bilateral toenails 1-5. Procedure was done 12/08/23. States still some tenderness. Has been soaking them. documented in this encounterMer[facility]24 NoteHNO ID: [id number] Author: JUANY DAY RN Service: ? Author Type: Registered Nurse Type: Progress Notes Filed: 12/22/2023 11:06 Note Text: AMB ROOMING INTAKE FLOWSHEET DATA Pain Pain Level: 6 Pain Location: Other: See Comment (bilateral foot toes) Description: Aching, Throbbing Duration Amount of Time: 2 Duration Units: Weeks Frequency: Intermittent Intervention/Comfort measure: Relaxation Patient presents with: Left Foot - Established Patient, Follow Up, Post Op Right Foot - Established Patient, Follow Up, Post Op Patient presents for follow up of matrixectomy to bilateral toenails 1-5. Procedure was done 12/08/23. States still some tenderness. Has been soaking them. [facility]03-11-2024 Miscellaneous Notes* Telephone Encounter - Indigo Smith LPN - 12/11/2023 1:40 PM EDT Images from the original note were not included. Corby Power [facility] Pod[facility] Pool 38 minutes ago (1:01 PM) I called patient. She is doing well. She is ok to return to work as scheduled Continue with local wound care Corby Power DPM * Telephone Encounter - Jeovanny Powell MA - 12/11/2023 12:13 PM EDT Pt calling to see when she can return to work. She is scheduled Monday. She works at [employer] and is on her feet the whole time. She was unsure of her restrictions. If she is able to return, she will need a note. Please review and advise. Jeovanny Powell MA documented in this encounterMer[facility]03-04-2024 Instructions* Patient Instructions* Ramon Murguia APRN.KINDERGARTEN TUTOR - 12/04/2023 2:14 PM EST PATIENT PREOPERATIVE INSTRUCTIONS Corby Power DPM has scheduled you for your procedure at this surgery center: [facility]: [phone] -- [address] [address]. Please read below carefully for your personalized instructions. Arrival Time for Surgery: - The Surgery Center or hospital where you are having surgery will call the afternoon before surgery (or Monday for Monday surgery) with a scheduled arrival time. - If you have not heard by 4 pm, please contact the surgery center above. Please be aware that emergency situations arise, which may delay or change your surgical time. If this happens, we will notify you as soon as possible and regret any inconvenience. Dietary Restrictions: - No solid food after midnight. - You may have 12 ounces of clear liquids (water, clear juices such as apple juice or gatorade, carbonated beverages (sprite/samm leonila), clear tea, black coffee, jello) until 2 hours before scheduled arrival at facility. - Do not drink any alcohol after midnight the night before your surgery. Medications: Unless instructed differently below, stay on all of your medications until your surgery. Pre-Surgery Med Instructions Medication Instructions Lactobacillus acidophilus (PROBIOTIC ORAL) Do not take the day of surgery pantoprazole DR (PROTONIX) 40 mg tablet Take the day of surgery with a small sip of water sucralfate (CARAFATE) 1 gram tablet Do not take the day of surgery metoprolol succinate ER (TOPROL XL) 25 mg 24 hr tablet Take the day of surgery with a small sip of water fluticasone (FLONASE) 50 mcg/actuation nasal spray Use day of surgery if needed atorvastatin (LIPITOR) 20 mg tablet Take the day of surgery with a small sip of water cyclobenzaprine (FLEXERIL) 5 mg tablet Do not take the day of surgery lisinopril (ZESTRIL, PRINIVIL) 10 mg tablet Do not take the day of or evening before surgery loratadine (CLARITIN) 10 mg tablet Take the day of surgery with a small sip of water montelukast (SINGULAIR) 10 mg tablet Take the day of surgery with a small sip of water If you start any new medications after today's visit, please contact the surgeon's office. Blood Thinning Medications: - Stop NSAIDS (Ibuprofen, Advil, Aleve, Motrin, Celebrex, Mobic, etc.) 7 days before surgery, as directed by your surgeon. - Stop Aspirin 7 days before surgery, as directed by your surgeon. - Stop Vitamin E, ALL multi-vitamins, herbals and dietary supplements 14 days before surgery. - You may take Tylenol (Acetaminophen) or any of your pain medications that do not contain aspirin or NSAIDS as needed. Important Reminders: - Candy, mints, and tobacco products are NOT permitted the morning of surgery. - Hearing aids, dentures and glasses may be worn the morning of surgery. - NO jewelry, body piercings, makeup, hairpins or contacts are to be worn the day of surgery. If you develop symptoms such as a fever, cold, or flu, or have other changes to your health within TWO DAYS of scheduled surgery or the morning of surgery, please contact the surgery center above. Personal Belongings: -Please have photo ID and insurance cards. -If you do not have a copy of advance directives on file with us, please bring a copy with you on the day of surgery. - Leave ALL valuables and money at home or with family members. For Outpatient Procedures: - YOU MUST HAVE A RESPONSIBLE FACETER TAKE YOU HOME. A CLOTH HANDLER OR DRAFTER TOPOGRAPHICAL CANNOT BE MADE A RESPONSIBLE FACETER. - We recommend that a responsible person stays with you overnight to take care of you. - You cannot stay in a hotel alone after outpatient surgery. You will not be permitted to have yoursurgery, if you do not have someone to take care of you. If you already have an Advance Directive, please fax a copy to [phone] or email to for it to be added to your chart. If you do not have an Advance Directive, you can find the appropriate form and more information at [email or web address]. We recommend that youcomplete the Advance Directive form found on the website and bring it with you the day of your surgery. It can be witnessed and scanned into your chart that day. Ramon Murguia APRN.CNP documented in this encounterMer[facility]03-04-[facility]24 History and physical note * Ramon Murguia APRN.CNP - 12/04/2023 2:07 PM EST HISTORY AND PHYSICAL EXAMINATION SERVICE DATE: 12/04/2023 SERVICE TIME: 2:07 PM PRIMARY CARE PHYSICIAN: Yenny Kauffman NP Assessment Patient has the following medical conditions which may affect vicenta-operative course: Chronic bronchitis with COPD (chronic obstructive pulmonary disease) (HCC) Assessment: Patient quit smoking about 20 years ago. She has chronic, stable dyspnea with stairs but does OK walking on flat ground. She was prescribed inhalers but cannot afford them as she does nothave health insurance. Fatty liver Assessment: Noted on 2020 ultrasound, LFTs WNL 12/2022. GERD (gastroesophageal reflux disease) Assessment: Symptoms currently stable on Rx. Does have some nausea if she doesn't take her meds. Valvular heart disease Assessment: Echo 2020 with mild MR and TR. Has occasional palpitations, lightheaded and dizziness. Denies syncope. Previously saw Dr. Davis in cardiology and recommended to follow up as needed. HTN (hypertension) Assessment: Compliant with Rx. Last 2 Encounter BP Readings: Date: BP: 12/04/2023 122/64 09/03/2021 112/80 Mixed hyperlipidemia Assessment: Compliant with Rx, following with PCP. Morbidly obese (HCC) Assessment: Body mass index is 42.82 kg/m . Camacho Activity Status Index: METS: Walk a block or two on level ground (2.75 METs) Cannot do moderate work around the house, such as vacuuming, sweeping floors, or carrying in groceries Cannot climb a flight of stairs or walk up a hill DASI Score: 2.75 Patient denies any chest pain or undue shortness of breath with the above physical activity. Clinical Frailty Scale: 3. Well, with treated comorbid disease STOP-Bang Score: Snores loudly Often feels tired, fatigued, or sleepy during the daytime Has been observed to stop breathing or choking/gasping during sleep Has or is being treated for high blood pressure BMI greater than 35 kg/m^2 Patient over 50 years old Does not have a large neck Non-male patient STOP-Bang Score: 6 ANESTHESIA FINDINGS: Intubation History: No history of difficult intubation. No abnormal airway history Significant Anesthesia Considerations: none Airway History: No history of difficult airway No abnormal airway history I - PHYSICAL EVALUATION AIRWAY Patient intubated: No. Tracheostomy tube not present Mallampati: I. TM distance: >3 FB. Neck ROM: full ROM without neurological symptoms. Mouth opening: adequate. Short neck: yes. Thick neck: no Donnelly present: no Upper lip bite test: ROCAEL. Microretrognathia/Micronagthia/Recessed Chin: No DENTAL Dental findings: edentulous. II - ANESTHESIA PLAN Beta Kadie Monitoring Plan Post Procedure Analgesic Plan Prepared for Surgery: optimally prepared for surgery. CONSULTS: Patient does not require consults for optimization at this time Planned Anesthetic: anesthesia choice The Following Tests/Procedures Have Been Initiated: Orders Placed This Encounter Lactobacillus acidophilus (PROBIOTIC ORAL) Sig: Take 1 capsule by mouth once daily. MULTIVITAMIN ORAL Sig: Take 1 tablet by mouth once daily. REASON FOR VISIT: Brandi Sauceda is a 63 year old female who is scheduled for EXCISION OF NAIL & MATRIX FOR PERMANENT REMOVAL at the request of Dr. Corby Power for consultation. My finalrecommendation will be communicated back to the requesting physician by way of shared medical record or letter. Subjective The patient has the following: ACTIVE PROBLEM LIST Abnormal Mammogram, Unspecified Htn (Hypertension) Mixed Hyperlipidemia Valvular Heart Disease Chronic Bronchitis With Copd (Chronic Obstructive Pulmonary Disease) (Hcc) Fatty Liver Gerd (Gastroesophageal Reflux Disease) Morbidly Obese (Hcc) COVID-19 Immunization Status Overdue - Covid-19 Vaccine (1) Never done No completion, postpone, frequency change, or communication history exists for this topic. CHIEF COMPLAINT: Anesthesia Consult HPI: 63 year old female presents with onychomycosis. Patient states she has tried oral medication and soaking her feet in vinegar previously for treatment without significant improvement. She stands on her feet for long periods of time for work and her feet get very sore. She will usually wear a couple of pairs of socks so that the toes don't rub against her shoes. REVIEW OF SYSTEMS: General: No weight loss, malaise or fevers. Neurological: Positive for: headaches and impaired sensorium. Negative for: multiple sclerosis, Parkinson's disease, seizures, TIA and strokes. Respiratory: Positive for: COPD, current cough and dyspnea. Negative for: asthma, bronchitis, home oxygen, orthopnea, pneumonia within 6 weeks, tobacco use andobstructive sleep apnea. Cardiovascular: Positive for: hyperlipidemia, hypertension and murmur/valvular heart disease Negative for: arrhythmia, atrial fibrillation, CAD, chest pain, CHF, DVT/PE and recent RI. GI: Positive for: GERD and liver disease Negative for: abdominal pain, dysphagia, diverticulitis, GI bleed <30 days, heartburn, hepatitis, irritable bowel syndrome, inflammatory bowel disease, nausea, vomiting and ETOH >2 drinks/day. : Negative for: dysuria, hematuria, nephrolithiasis and renal failure. 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 Endocrine: No history of diabetes. Has not taken steroids within the past 30 days. No history of endocrinological symptoms or problems. Hematology: Positive for: bruises/bleeds easily and chronic anti-coagulation/platelet meds (ASA). Negative for: anemia, factor V Leiden, thrombocytopenia and von Willebrand disease. Oncology: No history of CA metastasis, chemo within 30 days, or radiotherapy within 90 days. No history of oncological symptoms or problems. Psych: No history of psychiatric symptoms or problems. Musculoskeletal: Negative for joint pain or swelling, back pain or muscle pain. Positive for: joint pain (Shoulder, knees). Negative for: swelling. Skin: Negative for lesions, rash and itching. PAST MEDICAL HISTORY Diagnosis Date Chronic bronchitis with COPD (chronic obstructive pulmonary disease) (HCC) GERD (gastroesophageal reflux disease) HTN (hypertension) Mixed hyperlipidemia Osteoarthritis Osteoporosis Sciatica Valvular heart disease PAST SURGICAL HISTORY Procedure Laterality Date APPENDECTOMY BX BREAST PERC VACUUM/ROTN Left 01/19/2009 VAGINAL HYSTERECTOMY UTERUS 250 GM/< 1982 Hysterectomy, vaginal FAMILY HISTORY Problem Relation Age of Onset Allergies Mother Alcohol/Drug Father Diabetes Father Stroke Paternal Grandmother Cancer Paternal Grandfather Anesthesia Problems No Family History Social History Tobacco Use Smoking status: Former Packs/day: 0.25 Years: 30.00 Additional pack years: 0.00 Total pack years: 7.50 Types: Cigarettes Start date: 1975 Quit date: 2003 Years since quittin.1 Smokeless tobacco: Never Vaping Use Vaping Use: Never used Substance Use Topics Alcohol use: No Drug use: No Prior to Admission medications as of 12/04/23 1422 Medication Sig Last Dose Taking Lactobacillus acidophilus (PROBIOTIC ORAL) Take 1 capsule by mouth once daily. Taking Yes pantoprazole DR (PROTONIX) 40 mg tablet Take 1 tablet by mouth once daily. Taking Yes sucralfate (CARAFATE) 1 gram tablet Take 1 tablet by mouth every 12 hours. Taking Yes metoprolol succinate ER (TOPROL XL) 25 mg 24 hr tablet Take 1 tablet by mouth every afternoon. Taking Yes fluticasone (FLONASE) 50 mcg/actuation nasal spray Inhale 2 sprays in each nostril at night Taking Yes atorvastatin (LIPITOR) 20 mg tablet Take 20 mg by mouth once daily. Taking Yes cyclobenzaprine (FLEXERIL) 5 mg tablet Take 5 mg by mouth daily at bedtime. Taking Yes lisinopril (ZESTRIL, PRINIVIL) 10 mg tablet Take 20 mg by mouth once daily. Taking Yes loratadine (CLARITIN) 10 mg tablet Take 10 mg by mouth once daily. Taking Yes montelukast (SINGULAIR) 10 mg tablet Take 10 mg by mouth once daily. Taking Yes MULTIVITAMIN ORAL Take 1 tablet by mouth once daily. aspirin, enteric coated (ASPIRIN, ENTERIC COATED) 81 mg EC tablet Take 81 mg by mouth once daily. Ascorbic Acid (VITAMIN C) 1,000 mg tablet Take 1,000 mg by mouth once daily. triamcinolone acetonide (KENALOG) 0.1 % cream Apply 1 application twice daily at shoulder excision scar as needed for sting/itch. ergocalciferol 50,000 unit capsule (VITAMIN D2, DRISDOL) Take 1 capsule by mouth one time a week. Medication Comments documented by Bri Gutierrez Ma on 09/03/2021 at 1308. Vit c/d ALLERGIES Allergen Reactions Aspirin GI Upset vomitting and stomach pains Codeine Objective PHYSICAL EXAM: General: alert and oriented and morbidly obese. Pertinent negatives noted - not distressed. Skin: normal color, no rash or lesions. HEENT: pupils equal round and pupils reactive to light. Pertinent negatives noted - no carotid bruit. Cardiovascular: regular rate and rhythm, normal S1 and S2, no rub, murmurs, or gallop. Respiratory: normal breath sounds, no wheezes or crackles. No chest wall deformity or tenderness. Abdomen: soft. Pertinent negatives noted - no hernia, no mass, not rigid and not tender. Extremities: no deformity, no edema or tenderness, no joint swelling or clubbing. Neurological: normal cognition and motor skills. Gait normal. No weakness or sensory deficit. PAIN ASSESSMENT: Pain Pain Level: 10 Pain Location: Foot-Left (bilateral) Description: Sharp Duration Amount of Time: 1 Duration Units: Years Frequency: Continuous Intervention/Comfort measure: Medication VITALS: BP 122/64 Pulse 84 Temp (Src) 97.1 (Temporal) Resp 16 Ht 4' 8 (1.42m) Wt 191 lb (86.6kg) SpO2 96% BMI 42.85 kg/(m^2). Diagnostic tests reviewed for today's visit: Lab Value Units Date High Low HB No results within date range. HCT No results within date range. WBC No results within date range. PLT No results within date range. NA No results within date range. K No results within date range. GLUC No results within date range. BUN No results within date range. CREAT No results within date range. PTSEC No results within date range. INR No results within date range. APTT No results within date range. ALT No results within date range. AST No results within date range. TBILI No results within date range. TSH No results within date range. Lab Value Units Date High Low HCGQT No results within date range. UHCG No results within date range. HCG, BODY* No results within date range. Lab Value Units Date High Low ABORHD No results within date range. ABSCREEN No results within date range. Hemoglobin A1C (%) Date Value 01/17/2023 5.8 09/15/2022 5.8 No results found for this or any previous visit (from the past 8760 hour(s)). No results found for this or any previous visit (from the past 36240 hour(s)). Instructions Given to Patient: Instructions located in the after visit summary. Patient given verbal and written preop instructions and voices comprehension and compliance. SIGNATURE: Ramon Murguia APRN.CNP PATIENT NAME: Brandi Sauceda DATE: December 04, 2023 TIME: 2:07 PM PAGER/CONTACT #: documented in this encounterMercy [facility]02-23-2024 Miscellaneous Notes* Telephone Encounter - Indigo Smith LPN - 11/24/2023 2:55 PM EST Patient presented to office on 11/13/2023 to discuss surgery and sign consent. Patient elected to schedule surgery for chemical matrixectomy, toes 1-5 b/l on 12/08/2023 at [facility]. Patient was provided with surgical packet including electronic and paper copy of surgical confirmation letter, and instruction on where to go at [facility] All post op were scheduled with in office as well. Patient verbalized understanding of all instructions. Surgery scheduled in [facility]. Indigo Smith LPN * Telephone Encounter - Myrtle Villa RN - 11/14/2023 4:06 PM EST Patient called in stating that financial assistance said they would help with cost of surgery. She was told a fax was being sent to the office. Myrtle iVlla RN * Telephone Encounter - Corby Power - 11/13/2023 9:26 AM EST Patient name: Brandi Sauceda* Type of surgery:chemical matrixectomy, toes 1-5 b/l CPT code:87588 Diagnosis: onychomycosis* Length of surgery:120 min Change Management Consultant needed: none* Anesthesia: mac Special equipment: 30 phenol sticks documented in this encounterMercy Health [facility]02-12-2024 NoteHNO ID: [id number] Author: CORBY POWER, ? Service: ? Author Type: Physician Type: Progress Notes Filed: 11/13/2023 09:26 Note Text: FOLLOW UP PODIATRIC OFFICE VISIT Chief Complaint: This 63 year old who presents for follow up:toenail deformity Patient presents to clinic for followup dystrophic toenails Is here to discuss options for removal. PAIN EVALUATION No data found in the last 1 encounters. Hemoglobin A1C Date Value Ref Range Status 01/17/2023 5.8 (H) 4.3 - 5.6 % Final Comment: [place] [employer] guidelines indicate that patients with HgbA1c in the range 5.7-6.4% are at increased risk for development of diabetes, and intervention by lifestyle modification may be beneficial. HgbA1c greater or equal to 6.5% is considered diagnostic of diabetes. PCP: Cayla Chowdhury CNP PAST MEDICAL HISTORY Diagnosis Date Chronic bronchitis with COPD (chronic obstructive pulmonary disease) HTN (hypertension) Mixed hyperlipidemia Osteoarthritis Osteoporosis Sciatica Valvular heart disease Current Outpatient Medications Medication Sig pantoprazole DR (PROTONIX) 40 mg tablet Take 1 tablet by mouth once daily. aspirin, enteric coated (ASPIRIN, ENTERIC COATED) 81 mg EC tablet Take 81 mg by mouth once daily. Ascorbic Acid (VITAMIN C) 1,000 mg tablet Take 1,000 mg by mouth once daily. sucralfate (CARAFATE) 1 gram tablet Take 1 tablet by mouth every 12 hours. triamcinolone acetonide (KENALOG) 0.1 % cream Apply 1 application twice daily at shoulder excision scar as needed for sting/itch. metoprolol succinate ER (TOPROL XL) 25 mg 24 hr tablet Take 1 tablet by mouth every afternoon. ergocalciferol 50,000 unit capsule (VITAMIN D2, DRISDOL) Take 1 capsule by mouth one time a week. fluticasone (FLONASE) 50 mcg/actuation nasal spray Inhale 2 sprays in each nostril at night atorvastatin (LIPITOR) 20 mg tablet Take 20 mg by mouth daily at bedtime. cyclobenzaprine (FLEXERIL) 5 mg tablet Take 5 mg by mouth daily at bedtime. lisinopril (ZESTRIL, PRINIVIL) 10 mg tablet Take 20 mg by mouth once daily. loratadine (CLARITIN) 10 mg tablet Take 10 mg by mouth once daily. montelukast (SINGULAIR) 10 mg tablet Take 10 mg by mouth once daily. omeprazole (PRILOSEC) 20 mg capsule Take 20 mg by mouth once daily. (Patient not taking: Reported on 08/15/2023) naproxen (NAPROSYN) 500 mg tablet Take 500 mg by mouth twice daily as needed. (Patient not taking: Reported on 08/15/2023) lovastatin (MEVACOR) 20 mg tablet Take 20 mg by mouth daily at bedtime. (Patient not taking: Reported on 11/13/2023) alendronate sodium(FOSAMAX 70 MG TAB) Take once per week in the morning with a full glass of water, on an empty stomach, and do not take anything else by mouth or lie down for the next 30 minutes. (Patient not taking: No sig reported) No current facility-administered medications for this visit. ALLERGIES Allergen Reactions Aspirin GI Upset vomitting and stomach pains Codeine PAST SURGICAL HISTORY Procedure Laterality Date APPENDECTOMY BX BREAST PERC VACUUM/ROTN Left VAGINAL HYSTERECTOMY UTERUS 250 GM/< 1982 Hysterectomy, vaginal Physical Exam: OBJECTIVE: Constitutional: Pt is a well developed 63 year old female who is alert, oriented, cooperative and in no apparent distress. Eyes: Following during examination. No redness or drainage. Respiratory: RR normal and nonlabored. Even breathing. No evidence of distress. Psychology: Patient is engaged during conversation. Normal affect and mood. Does not appear depressed or anxious. NVSI unchanged from previous visit. Non-Invasive Vascular Laboratory [facility] Lower Extremity Arterial Physiology Study Bilateral/Complete Date of service/time: 09/08/2023 12:22:58 PM Name: MRS. BRANDI SAUCEDA Date of : 1960 Age: 63 years Gender: F Clinical Indication Decreased pulses. TECHNIQUE -------- An arterial physiological examination was performed, including measurement of blood pressures using continuous wave Doppler and recording of plethysmographic with or without Doppler waveforms at the below-mentioned limb segments. FINDINGS -------- RIGHT SIDE AT REST Right Doppler Waveforms Dorsalis pedis: Multiphasic. Post tibial: Multiphasic. Right Pressures Brachial: 120 mmHg Ankle dorsalis pedis: 144 mmHg AKI: 1.20 Ankle posterior tibial: 150 mmHg AKI: 1.25 Digit: 121 mmHg Right PVR Waveforms Ankle: Normal. Digit: Normal. LEFT SIDE AT REST Left Doppler Waveforms Dorsalis pedis: Multiphasic. Post tibial: Multiphasic. Left Pressures Brachial: 120 mmHg Ankle dorsalis pedis: 141 mmHg AKI: 1.18 Ankle posterior tibial: 144 mmHg AKI: 1.20 Digit: 125 mmHg Left PVR Waveforms Ankle: Normal. Digit: Normal. IMPRESSION RIGHT SIDE Resting right ankle brachial index: 1.25 Right (more content not included)...[facility]02-12-2024 History of Present illness Narrative* Corby Power - 11/13/2023 9:21 AM EST FOLLOW UP PODIATRIC OFFICE VISIT Chief Complaint: This 63 year old who presents for follow up:toenail deformity Patient presents to clinic for followup dystrophic toenails Is here to discuss options for removal. PAIN EVALUATION No data found in the last 1 encounters. Hemoglobin A1C Date Value Ref Range Status 01/17/2023 5.8 (H) 4.3 - 5.6 % Final Comment: [place] [employer] guidelines indicate that patients with HgbA1c in the range 5.7-6.4% are at increased risk for development of diabetes, and intervention by lifestyle modification may be beneficial. HgbA1c greater or equal to 6.5% is considered diagnostic of diabetes. PCP: Cayla Chowdhury CNP PAST MEDICAL HISTORY Diagnosis Date Chronic bronchitis with COPD (chronic obstructive pulmonary disease) HTN (hypertension) Mixed hyperlipidemia Osteoarthritis Osteoporosis Sciatica Valvular heart disease Current Outpatient Medications Medication Sig pantoprazole DR (PROTONIX) 40 mg tablet Take 1 tablet by mouth once daily. aspirin, enteric coated (ASPIRIN, ENTERIC COATED) 81 mg EC tablet Take 81 mg by mouth once daily. Ascorbic Acid (VITAMIN C) 1,000 mg tablet Take 1,000 mg by mouth once daily. sucralfate (CARAFATE) 1 gram tablet Take 1 tablet by mouth every 12 hours. triamcinolone acetonide (KENALOG) 0.1 % cream Apply 1 application twice daily at shoulder excision scar as needed for sting/itch. metoprolol succinate ER (TOPROL XL) 25 mg 24 hr tablet Take 1 tablet by mouth every afternoon. ergocalciferol 50,000 unit capsule (VITAMIN D2, DRISDOL) Take 1 capsule by mouth one time a week. fluticasone (FLONASE) 50 mcg/actuation nasal spray Inhale 2 sprays in each nostril at night atorvastatin (LIPITOR) 20 mg tablet Take 20 mg by mouth daily at bedtime. cyclobenzaprine (FLEXERIL) 5 mg tablet Take 5 mg by mouth daily at bedtime. lisinopril (ZESTRIL, PRINIVIL) 10 mg tablet Take 20 mg by mouth once daily. loratadine (CLARITIN) 10 mg tablet Take 10 mg by mouth once daily. montelukast (SINGULAIR) 10 mg tablet Take 10 mg by mouth once daily. omeprazole (PRILOSEC) 20 mg capsule Take 20 mg by mouth once daily. (Patient not taking: Reported on 08/15/2023) naproxen (NAPROSYN) 500 mg tablet Take 500 mg by mouth twice daily as needed. (Patient not taking: Reported on 08/15/2023) lovastatin (MEVACOR) 20 mg tablet Take 20 mg by mouth daily at bedtime. (Patient not taking: Reported on 11/13/2023) alendronate sodium(FOSAMAX 70 MG TAB) Take once per week in the morning with a full glass of water,on an empty stomach, and do not take anything else by mouth or lie down for the next 30 minutes. (Patient not taking: No sig reported) No current facility-administered medications for this visit. ALLERGIES Allergen Reactions Aspirin GI Upset vomitting and stomach pains Codeine PAST SURGICAL HISTORY Procedure Laterality Date APPENDECTOMY BX BREAST PERC VACUUM/ROTN Left VAGINAL HYSTERECTOMY UTERUS 250 GM/< 1982 Hysterectomy, vaginal Physical Exam: OBJECTIVE: Constitutional: Pt is a well developed 63 year old female who is alert, oriented, cooperative and in no apparent distress. Eyes: Following during examination. No redness or drainage. Respiratory: RR normal and nonlabored. Even breathing. No evidence of distress. Psychology: Patient is engaged during conversation. Normal affect and mood. Does not appear depressed or anxious. NVSI unchanged from previous visit. Non-Invasive Vascular Laboratory [facility] Lower Extremity Arterial Physiology Study Bilateral/Complete Date of service/time: 09/08/2023 12:22:58 PM Name: MRS. BRANDI SAUCEDA Date of : 1960 Age: 63 years Gender: F Clinical Indication Decreased pulses. TECHNIQUE -------- An arterial physiological examination was performed, including measurement of blood pressures using continuous wave Doppler and recording of plethysmographic with or without Doppler waveforms at the below-mentioned limb segments. FINDINGS -------- RIGHT SIDE AT REST Right Doppler Waveforms Dorsalis pedis: Multiphasic. Post tibial: Multiphasic. Right Pressures Brachial: 120 mmHg Ankle dorsalis pedis: 144 mmHg AKI: 1.20 Ankle posterior tibial: 150 mmHg AKI: 1.25 Digit: 121 mmHg Right PVR Waveforms Ankle: Normal. Digit: Normal. LEFT SIDE AT REST Left Doppler Waveforms Dorsalis pedis: Multiphasic. Post tibial: Multiphasic. Left Pressures Brachial: 120 mmHg Ankle dorsalis pedis: 141 mmHg AKI: 1.18 Ankle posterior tibial: 144 mmHg AKI: 1.20 Digit: 125 mmHg Left PVR Waveforms Ankle: Normal. Digit: Normal. IMPRESSION RIGHT SIDE Resting right ankle brachial index: 1.25 Right toe brachial index: 1.01 Normal ankle brachial index at rest in the right leg. Normal toe brachial index at rest in the right leg. Right ankle: Normal at rest. LEFT SIDE Resting left ankle brachial index: 1.20 Left toe brachial index: 1.04 Normal ankle brachial index at rest in the left leg. Normal toe brachial index at rest in the left leg. Left ankle: Normal at rest. Technologist: Fariha Cunningham RVT, [facility] Ordering physician: CORBY POWER Interpreting physician: MILLY Mckinney DO Dermatological: Nails 1-5 b/l are normal in length but are dystrophic. Webspaces clean and dry 1-4 b/l. Skin appears well hydrated and supple. good color, texture, turgor. No open lesions present. Callus present to b/l hallux ASSESSMENT: (B35.1) Onychomycosis (primary encounter diagnosis) PLAN: We discussed the possible etiologies of discolored, dystrophic, and thickened nails including fungus, yeast, mold as well as in some instances, prior trauma, or mechanical causes such as repetitive microtrauma in shoe gear. We discussed topical medication for discolored toenails which has very low success but no major side effects. We discussed oral medication. Patient will need hepatic testing prior to use. Patient informed of risks associated with Lamisil. We discussed removal of toenails. Patient would like to proceed with removal of toenails 1-5 b/l in the operating room. Callus reduced to b/l hallux with boyd Power DPM * Juany Day RN - 11/13/2023 8:54 AM EST Patient presents with: Left Foot - Established Patient, Follow Up, Nail Check Right Foot - Established Patient, Follow Up, Nail Check Patient presents for thick toenails. States that she was coming in to have all of them removed. Patient had recent PVR that showed good circulation. Nails are thick and discolored. Informed patient that we do not normally remove all the nails in office. [facility] NoteHNO ID: [id number] Author: JUANY DAY RN Service: ? Author Type: Registered Nurse Type: Progress Notes Filed: 11/13/2023 09:26 Note Text: Patient presents with: Left Foot - Established Patient, Follow Up, Nail Check Right Foot - Established Patient, Follow Up, Nail Check Patient presents for thick toenails. States that she was coming in to have all of them removed. Patient had recent PVR that showed good circulation. Nails are thick and discolored. Informed patient that we do not normally remove all the nails in office.[facility]11-14-2023 Instructions* Patient Instructions* Corby Power - 08/15/2023 4:19 PM EST Powerstep Original Full length. Can purchase at [employer] here in [place], [employer] in [place] or [place]. Also can find in [employer] in [facility]. Powersteps can also be purchased online, starting around $45.00 If you have a metatarsal or dancer pad for your feet apply the pad directly to the insole so you can interchange between your shoes. Find a shoe with a removable insole and take this out and replace with your powerstep insole. Always bring powersteps with you when shopping for shoes so that you can make sure that everything fits well together documented in this encounterMer[facility]11-14-2023 NoteHNO ID: [id number] Author: Corby Power Service: ? Author Type: Physician Type: Progress Notes Filed: 08/15/2023 9:03 PM Note Text: Initial Podiatric Office Visit: Chief Complaint: This 63 year old female who presents with chief complaint:painful toenails of b/l feet HPI Patient presents to clinic as part of referral for painful toenails. Patient states the toenails are thick and discolored and painful. Patient also complains of painful corn to left foot PAIN EVALUATION 08/15/2023 1550 Pain Level: 8 Pain Location: Other: See Comment Bilateral feet Frequency: Intermittent Intervention/Comfort measure: Relaxation;Reposition Hemoglobin A1C (%) Date Value 01/17/2023 5.8 09/15/2022 5.8 PCP: Cayla Chowdhury CNP PAST MEDICAL HISTORY Diagnosis Date Chronic bronchitis with COPD (chronic obstructive pulmonary disease) HTN (hypertension) Mixed hyperlipidemia Osteoarthritis Osteoporosis Sciatica Valvular heart disease Current Outpatient Medications Medication Sig sucralfate (CARAFATE) 1 gram tablet Take 1 tablet by mouth every 12 hours. triamcinolone acetonide (KENALOG) 0.1 % cream Apply 1 application twice daily at shoulder excision scar as needed for sting/itch. metoprolol succinate ER (TOPROL XL) 25 mg 24 hr tablet Take 1 tablet by mouth every afternoon. ergocalciferol 50,000 unit capsule (VITAMIN D2, DRISDOL) Take 1 capsule by mouth one time a week. fluticasone (FLONASE) 50 mcg/actuation nasal spray Inhale 2 sprays in each nostril at night atorvastatin (LIPITOR) 20 mg tablet Take 20 mg by mouth daily at bedtime. cyclobenzaprine (FLEXERIL) 5 mg tablet Take 5 mg by mouth daily at bedtime. loratadine (CLARITIN) 10 mg tablet Take 10 mg by mouth once daily. montelukast (SINGULAIR) 10 mg tablet Take 10 mg by mouth once daily. lovastatin (MEVACOR) 20 mg tablet Take 20 mg by mouth daily at bedtime. lisinopril (ZESTRIL, PRINIVIL) 10 mg tablet Take 10 mg by mouth once daily. (Patient not taking: Reported on 08/15/2023) omeprazole (PRILOSEC) 20 mg capsule Take 20 mg by mouth once daily. (Patient not taking: Reported on 08/15/2023) naproxen (NAPROSYN) 500 mg tablet Take 500 mg by mouth twice daily as needed. (Patient not taking: Reported on 08/15/2023) alendronate sodium(FOSAMAX 70 MG TAB) Take once per week in the morning with a full glass of water, on an empty stomach, and do not take anything else by mouth or lie down for the next 30 minutes. (Patient not taking: No sig reported) No current facility-administered medications for this visit. ALLERGIES Allergen Reactions Aspirin GI Upset vomitting and stomach pains Codeine PAST SURGICAL HISTORY Procedure Laterality Date APPENDECTOMY BX BREAST PERC VACUUM/ROTN Left VAGINAL HYSTERECTOMY UTERUS 250 GM/< 1982 Hysterectomy, vaginal FAMILY HISTORY Problem Relation Age of Onset Alcohol/Drug Father Diabetes Father Allergies Mother Cancer Paternal Grandfather Stroke Paternal Grandmother Social History Tobacco Use Smoking status: Never Smokeless tobacco: Never Vaping Use Vaping Use: Never used Substance Use Topics Alcohol use: No Drug use: No REVIEW OF SYSTEMS GENERAL: Negative for Malaise, significant weight loss, fever RESPIRATORY: Negative for cough, wheezing and shortness of breath CARDIOVASCULAR: Negative for chest pain, leg swelling and palpitations GI: Negative for abdominal discomfort, blood in stools or black stools and change in bowel habits : Negative for dysuria, frequency and incontinence MUSCULOSKELETAL: Negative for joint pain or swelling, back pain, and muscle pain. SKIN: Negative for lesions, rash, and itching. HEMATOLOGY/LYMPHOLOGY Negative for prolonged bleeding, bruising easily, and swollen nodes. ENDOCRINE: Negative for cold or heat intolerance, polyuria, polydipsia and goiter. NEURO: negative Physical Exam: Constitutional: Pt is a well developed 63 year old female who is alert, oriented and cooperative Eyes: Following during examination. No redness or drainage. Respiratory: RR normal and nonlabored. Even breathing. No evidence of distress or shortness of breath. Psychology: Patient is engaged during conversation. Normal affect and mood. Does not appear depressed or anxious during encounter. Vascular: Dorsalis pedis and posterior tibial pulses faintly palpable as b/l Capillary Fill time < 5 seconds to digits 1-5 b/l Skin temperature warm to cool proximal to distal b/l Hair growth absent to digits Neurological: intact light touch/epicritic sensation b/l intact protective sensation no significant neurological deficits Dermatological: Nails 1-5 b/l appear dystrophic, painful. Webspaces clean and dry 1-4 b/l. Skin appears well hydrated and supple. good color, texture, turgor. No open lesions present. Callus to b/l hallux reduced with dremmel Radiographs: n/a ASSESSMENT: (B35.1) Onychomycosis (prima (more content not included)...[facility]11-14-2023 History of Present illness Narrative* Chloeherman Corby - 08/15/2023 4:04 PM EST Images from the original note were not included. Initial Podiatric Office Visit: Chief Complaint: This 63 year old female who presents with chief complaint:painful toenails of b/l feet HPI Patient presents to clinic as part of referral for painful toenails. Patient states the toenails are thick and discolored and painful. Patient also complains of painful corn to left foot PAIN EVALUATION 08/15/2023 1550 Pain Level: 8 Pain Location: Other: See Comment Bilateral feet Frequency: Intermittent Intervention/Comfort measure: Relaxation;Reposition Hemoglobin A1C (%) Date Value 01/17/2023 5.8 09/15/2022 5.8 PCP: Cayla Chowdhury CNP PAST MEDICAL HISTORY Diagnosis Date Chronic bronchitis with COPD (chronic obstructive pulmonary disease) HTN (hypertension) Mixed hyperlipidemia Osteoarthritis Osteoporosis Sciatica Valvular heart disease Current Outpatient Medications Medication Sig sucralfate (CARAFATE) 1 gram tablet Take 1 tablet by mouth every 12 hours. triamcinolone acetonide (KENALOG) 0.1 % cream Apply 1 application twice daily at shoulder excision scar as needed for sting/itch. metoprolol succinate ER (TOPROL XL) 25 mg 24 hr tablet Take 1 tablet by mouth every afternoon. ergocalciferol 50,000 unit capsule (VITAMIN D2, DRISDOL) Take 1 capsule by mouth one time a week. fluticasone (FLONASE) 50 mcg/actuation nasal spray Inhale 2 sprays in each nostril at night atorvastatin (LIPITOR) 20 mg tablet Take 20 mg by mouth daily at bedtime. cyclobenzaprine (FLEXERIL) 5 mg tablet Take 5 mg by mouth daily at bedtime. loratadine (CLARITIN) 10 mg tablet Take 10 mg by mouth once daily. montelukast (SINGULAIR) 10 mg tablet Take 10 mg by mouth once daily. lovastatin (MEVACOR) 20 mg tablet Take 20 mg by mouth daily at bedtime. lisinopril (ZESTRIL, PRINIVIL) 10 mg tablet Take 10 mg by mouth once daily. (Patient not taking: Reported on 08/15/2023) omeprazole (PRILOSEC) 20 mg capsule Take 20 mg by mouth once daily. (Patient not taking: Reported on 08/15/2023) naproxen (NAPROSYN) 500 mg tablet Take 500 mg by mouth twice daily as needed. (Patient not taking: Reported on 08/15/2023) alendronate sodium(FOSAMAX 70 MG TAB) Take once per week in the morning with a full glass of water,on an empty stomach, and do not take anything else by mouth or lie down for the next 30 minutes. (Patient not taking: No sig reported) No current facility-administered medications for this visit. ALLERGIES Allergen Reactions Aspirin GI Upset vomitting and stomach pains Codeine PAST SURGICAL HISTORY Procedure Laterality Date APPENDECTOMY BX BREAST PERC VACUUM/ROTN Left VAGINAL HYSTERECTOMY UTERUS 250 GM/< 1982 Hysterectomy, vaginal FAMILY HISTORY Problem Relation Age of Onset Alcohol/Drug Father Diabetes Father Allergies Mother Cancer Paternal Grandfather Stroke Paternal Grandmother Social History Tobacco Use Smoking status: Never Smokeless tobacco: Never Vaping Use Vaping Use: Never used Substance Use Topics Alcohol use: No Drug use: No REVIEW OF SYSTEMS GENERAL: Negative for Malaise, significant weight loss, fever RESPIRATORY: Negative for cough, wheezing and shortness of breath CARDIOVASCULAR: Negative for chest pain, leg swelling and palpitations GI: Negative for abdominal discomfort, blood in stools or black stools and change in bowel habits : Negative for dysuria, frequency and incontinence MUSCULOSKELETAL: Negative for joint pain or swelling, back pain, and muscle pain. SKIN: Negative for lesions, rash, and itching. HEMATOLOGY/LYMPHOLOGY Negative for prolonged bleeding, bruising easily, and swollen nodes. ENDOCRINE: Negative for cold or heat intolerance, polyuria, polydipsia and goiter. NEURO: negative Physical Exam: Constitutional: Pt is a well developed 63 year old female who is alert, oriented and cooperative Eyes: Following during examination. No redness or drainage. Respiratory: RR normal and nonlabored. Even breathing. No evidence of distress or shortness of breath. Psychology: Patient is engaged during conversation. Normal affect and mood. Does not appear depressed or anxious during encounter. Vascular: Dorsalis pedis and posterior tibial pulses faintly palpable as b/l Capillary Fill time < 5 seconds to digits 1-5 b/l Skin temperature warm to cool proximal to distal b/l Hair growth absent to digits Neurological: intact light touch/epicritic sensation b/l intact protective sensation no significant neurological deficits Dermatological: Nails 1-5 b/l appear dystrophic, painful. Webspaces clean and dry 1-4 b/l. Skin appears well hydrated and supple. good color, texture, turgor. No open lesions present. Callus to b/l hallux reduced with dremmel Radiographs: n/a ASSESSMENT: (B35.1) Onychomycosis (primary encounter diagnosis) (R09.89) Diminished pulses in lower extremity (M79.675) Pain in toe of left foot (M79.674) Pain in toe of right foot PLAN: A review of the patient's PMH and Podiatric physical exam was completed. We discussed the possible etiologies of discolored, dystrophic, and thickened nails including fungus, yeast, mold as well as in some instances, prior trauma, or mechanical causes such as repetitive microtrauma in shoe gear. Wediscussed topical medication for discolored toenails which has very low success but no major side effects. We discussed oral medication. Patient will need hepatic testing prior to use. Patient informed of risks associated with Lamisil. We discussed removal of toenails. Patient would like to proceedwith possible removal pending pvr. Toenails 1-5 b/l debrided in length and thickness Callus to b/l hallux reduced with dremmel Recommend use of lotion Recommend use of gel inserts. . Corby Power DPM Podiatry [address] [facility] [address] Dept: [phone] Dept * Juany Day RN - 08/15/2023 3:50 PM EST AMB ROOMING INTAKE FLOWSHEET DATA Risk Screening Do you have concerns about personal safety or safety in the home?: No Pain Pain Level: 8 Pain Location: Other: See Comment (Bilateral feet) Frequency: Intermittent Intervention/Comfort measure: Relaxation, Reposition Patient presents with: Left Foot - New, Pain Right Foot - New, Pain Patient presents as referral from Yesica Smith. States that she has corn to the bottom of her left foot. States that she has pain to toes on both feet. States that nails are thick and discolored. [facility]23 NoteHNO ID: [id number] Author: Juany Day RN Service: ? Author Type: Registered Nurse Type: Progress Notes Filed: 08/15/2023 9:03 PM Note Text: AMB ROOMING INTAKE FLOWSHEET DATA Risk Screening Do you have concerns about personal safety or safety in the home?: No Pain Pain Level: 8 Pain Location: Other: See Comment (Bilateral feet) Frequency: Intermittent Intervention/Comfort measure: Relaxation, Reposition Patient presents with: Left Foot - New, Pain Right Foot - New, Pain Patient presents as referral from Yesica Smith. States that she has corn to the bottom of her left foot. States that she has pain to toes on both feet. States that nails are thick and discolored.[facility] 05-13-2023 Hospital Discharge instructions Additional Instructions 1. You may hurt in more places and you presently do over the next several days 2. Your pain may increase over the next 24 to 48 hours 3. Apply ice to areas of discomfort 6-10 times a day for the next 3 to 5 days 4. Follow-up with corporate care 5. You may take Tylenol every 4-6 hours for pain.[facility] Work Phone: 1(600) 512-864004-22-[address] Sanchez [facility] January 21, 2023 1:18pm Note Date/Time January 21, 2023 8:0 0am [facility] Medical Records Department [address] [place] [id number] Instructions for Home/Discharge Instructions 01/21/23 0759 MR#: [id number] Acct: [id number] Name: BRANDI SAUCEDA ASHLEY Rep #:[id number] : 1960 62 From: Michael Langston PCP: [facility] St atus:ADM LAWANDA Discharge Instructions Diet Discharge Diet: No restrictions Activity Discharge Activity: Return to Normal Activity Weight Bearing Status: Weight bearing as tolerated Dressing / Incision Call your doctor if you observe: Fever of 101 or Higher, Coldness, Increased Pain, Numbness or Tingling, Change in Color, Inability to urinate, Inability to have a bowel movement, Using more than 1 pad per hour, Shortness of breath, Dizziness, Fainting spells, Swelling in the ankles, Chest pain, Prolonged hiccupping, Increased palpitations (irregular heartbeat) and Calf discomfort Follow Up Care When: IN 2 WEEKS Test Results: Test results from this visit will be discussed in further detail at your follow- up appointment, if applicable. Discharge Plan Admission Admit Date/Time: 01/20/23 15:02 Primary Reason for Your Visit: Atypical chest pain, noncardiac Attending Provider: Michael Sanchez Primary Care Provider: [facility] Sarah Instructions Additional Instructions / Restrictions: Patient already on antihistamine regulatory and therefore prescription for Antivert not given. Take it as needed for dizziness Discharge Orders/Prescriptions Prescriptions: New pantoprazole 40 mg Tablet,Delayed Release (Dr/Ec) 40 mg PO BID 30 Days Qty: 60 1RF Rx Instructions: 40 mg twice daily for 2 months and then once daily. atorvastatin 20 mg tablet 20 mg PO QHS Qty: 30 2RF Continued lisinopril 10 MG tablet 20 mg PO DAILY montelukast 10 MG tablet 10 mg PO DAILY@1700 ergocalciferol (vitamin D2) 1,250 mcg (50,000 unit) capsule 1 cap PO FR Label Comments: TAKE 1 CAPSULE EVERY WEEK ascorbic acid (vitamin C) [Vitamin C] 500 mg Tablet 500 mg PO DAILY cyclobenzaprine 5 mg tablet 5 mg PO QHS Label Comments: TAKE 1 TABLET BY MOUTH AT BEDTIME NEEDED for muscle pain Changed loratadine 10 mg tablet 10 mg PO DAILY@1700 PRN (Reason: allergy) 30 Days Qty: 0 0RF naproxen 500 mg tablet 500 mg PO BID PRN (Reason: arthritis pain) 30 Days Qty: 0 0RF Label Comments: TAKE 1 TABLET BY MOUTH TWICE DAILY NEEDED Discontinued lovastatin 20 MG tablet extended release 24 hr 20 mg PO QHS omeprazole 40 mg capsule,delayed release(DR/EC) 40 mg PO QHS Label Comments: Take 1 by mouth every day Referrals / Follow Up: Philip Guadarrama MD [Med Staff - Active Staff] - Within 1 Month (Possible undiagnosed COPD, PFT and sleep study. Quit smoking 22 years ago) Friend,DO Bob [Med Staff - Active Staff] - Within 1 Month (For EGD for possible GERD/PUD/atypical noncardiac chest pain) [facility] - Disposition Disposition (needs filled in before D/C Order can be placed): Home, Self Care 01/21/23 6509<Electronically signed by Michael Sanchez MD>Michael Sanchez MD CC: [facility] ~ Signed [facility] Work Phone: 1(356) 131-478804-22-[address] Sanchez [facility] January 21, 2023 1:20pm Note Date/Time January 21, 2023 8:0 0am [facility] Medical Records Department [address] [place] [address] Discharge Summary 01/21/23 1320 MR#: [id number] Acct: [id number] Name: BRANDI SAUCEDA Rep #:[id number] : 1960 62 From: Michael Langston PCP: [facility] St atus:ADM LAWANDA Location: [place] [address] Providers Date of Admission: 01/20/23 Date of Discharge: 01/21/23 Primary Care Physician: [facility] Reason For Visit: DIZZINESS AND CP Diagnosis Discharge Diagnosis (1) Dizziness: Status: Acute Code(s): R42 - Dizziness and giddiness (2) Chest pain, atypical: Status: Acute Code(s): R07.89 - Other chest pain Plan This is a 62-year-old female is being admitted for dizziness and atypical chest pain. 1.? Atypical chest pain noncardiac in nature: Patient is being admitted in PCU.?First troponin mildly elevated at 128-second 118 and 31 124. Flat and plateau. No acute change in EKG.? MIAN risk score is 3. ? Patient was last admitted in September 2022 for similar symptoms of chest pain.? At that time patient had elevated troponins and cardiac cath was done which was reported normal. I discussed with the ED physician and spinner frame.? Patient also had a stress test by outside spinner frame a year ago and was normal.?? Stress test not recommended as unnecessary in view of recent normal heart cath. And patient is physically deconditioned to walk on treadmill and Lexiscan may be relative contraindication for COPD. Repeat EKG does not show acute change. 01/21 D echo was done, reported EF 55 to 60%. No RWMA. Normal RV size and systolic function. Normal right and left atria. Mild MR. Patient might have atypical chest pain from GERD/extra esophageal symptoms of GERD/PUD. Patient onnaproxen 500 mg twice daily. I change it to as needed only needed for arthritispain. Started on pantoprazole 40 mg twice daily for 2 months, prescription given. Follow-up with Dr. Dueñas for outpatient EGD in 1 to 2 months. Patient might have pleuritic chest pain with history of smoking and possible undiagnosedCOPD. Follow with Dr. Guadarrama in 1 month for PFT/sleep study. 2.? Acute on chronic intermittent dizziness nonspecific: Patient does not have vertigo.? History and exam not supportive of focal neurological deficit.? CT head was done which was reported normal.? Symptomatic management.? Orthostatic vitals.? Patient not having nausea or vomiting are acutely sick. 01/21 dizziness resolved. Clinically acute stroke/TIA not concerning. 3.? Hypertension and dyslipidemia: Blood pressure is controlled.? Continue home medication.? Fasting profile tomorrow AM. 4.? GERD: Chronic medical condition.? Might be a reason for atypical chest pain.? Rest as mentioned above 5.? Hyperglycemia diagnosed prediabetes: Patient might have prediabetes.? 01/21 A1c 5.8 prediabetes range. 1800 ADA diet recommended. Living will/advanced directive/end of life care: Patient does not have living will or advanced directive.? She does not endanger power of attorney general for health.? Next of kin is her .? After discussion of benefits/risks procedures involved with? full code, DNR CC arrest and DNR CC, the patient is not yet decided therefore full code. Patient? does want artificial life support including intubation, tube feed, ventilator and/chest compression, central venous catheter, vasopressor and DC shock if needed Medications at Discharge Home Medications ergocalciferol (vitamin D2) 1,250 mcg (50,000 unit) capsule 1 cap PO FR SUPPLEMENT 01/21/20 lisinopril 10 mg tablet 20 mg PO DAILY blood pressure 01/21/20 montelukast 10 mg tablet 10 mg PO DAILY@1700 ALLERGIES 01/21/20 ascorbic acid (vitamin C) 500 mg tablet (Vitamin C) 500 mg PO DAILY vitamin 09/07/22 cyclobenzaprine 5 mg tablet 5 mg PO QHS pain 01/20/23 atorvastatin 20 mg tablet 20 mg PO QHS #30 tabs 01/21/23 loratadine 10 mg tablet 10 mg PO DAILY@1700 PRN allergy 30 days #0 tabs 01/21/23 naproxen 500 mg tablet 500 mg PO BID PRN arthritis pain 30 days #0 tabs 01/21/23 pantoprazole 40 mg tablet,delayed release 40 mg PO BID 30 days #60 tabs 01/21/23 Physical Exam Narrative Seen and examined. Chest pain and dizziness has resolved. Patient on baseline. No acute symptoms. General: Alert, Oriented x3, Cooperative HEENT: Atraumatic, PERRLA, EOMI, Normocephalic Oral: Oral mucosa moist.? No Gingival or Mucosal Lesions/ Ulcerations Neck: Supple, No JVD, Negative Carotid Bruits Lungs:? Air entry diminished in bilateral lung bases.? Occasional bilateral expiratory rhonchi? No tachypnea or hypoxia. Cardiovascular: Regular rate, Regular Rhythm, Normal S1, Normal S2, systolic murmur right second ICS. Abdomen: Bowel Sounds Present, Soft, Non Tender, Non-Distended : No renal angle tenderness.? No suprapubic tenderness. Extremities: Mild 1+ nonpitting chronic edema, Capillary Refill Less than 3 Seconds Skin: No rashes, No breakdown Musculoskeletal: No Tenderness to Palpation of Joints or Extremities.? ROM restricted.? Muscle strength 4+/5 at knees and hip joints Neurological: Cranial nerves II-XII grossly intact, DTR? 2+/4 and Symmetrical, gross sensation of touch and pressure symmetrical and equal on both sides.? No acute focal deficit. Psych/Mental Status: Flat affect. Weight / BMI Weight Weight: 194 lb 0.108 oz Body Mass Index (BMI) 43.4 ABG / Lab / Microbiology Data Result Diagrams: 01/21/23 05:48 01/21/23 05:48 Laboratory: Laboratory Results - last 24 hr 01/20/23 12:35: WBC 6.9, RBC 5.32, Hgb 14.7, Hct 45.3, MCV 85.2, MCH 27.6, MCHC 32.5, RDW Std Deviation 43.4, RDW Coeff of Kameron 14.0, Plt Count 208, MPV 10.4, Immature Gran % (Auto) 0.100, Neut % (Auto) 60.1, Lymph % (Auto) 31.1, Surry % (Auto) 5.7, Eos % (Auto) 2.3, Baso % (Auto) 0.7, Absolute Neuts (auto) 4.1, Absolute Lymphs (auto) 2.13, Nucleated RBC % 0 01/20/23 12:35: Sodium 139, Potassium 4.0, Chloride 109 H, Carbon Dioxide 27.0, Anion Gap 3 L, BUN 20 H, Creatinine 0.57, Estim Creat Clear Calc 138.89, Est GFR(MDRD) Af Amer 137, Est GFR (MDRD) Non-Af 113, BUN/Creatinine Ratio 34.9 H, Glucose 132 H, Calcium 8.9, Total Bilirubin 0.50, AST 22, ALT 37, Alkaline Phosphatase 106, Troponin I High Sens 128 H*, Total Protein 6.6, Albumin 3.8, Globulin 2.8, Albumin/Globulin Ratio 1.4 01/20/23 13:59: Urine Color Yellow, Urine Clarity Clear, Urine pH 7.0, Ur Specific [place] 1.015, Urine Protein Negative, Urine Glucose (UA) Normal, UrineKetones Negative, Urine Occult Blood Negative, Urine Nitrite Negative, Urine Bilirubin Negative, Urine Urobilinogen Normal, Ur Leukocyte Esterase 100 H, UrineRBC 0 SEEN, Urine WBC 0-5 SEEN, Ur Squamous Epith Cells 0 SEEN, Urine Bacteria 0SEEN, Urine Mucus 0 SEEN 01/20/23 14:47: Troponin I High Sens 118 H 01/20/23 14:47: Phosphorus 3.2, Magnesium 2.1 01/20/23 20:30: Troponin I High Sens 124 H* 01/21/23 05:48: WBC 4.8, RBC 4.69, Hgb 12.8, Hct 40.2, MCV 85.7, MCH 27.3, MCHC 31.8 L, RDW Std Deviation 43.7, RDW Coeff of Kameron 14.1, Plt Count 185, MPV 10.6, Immature Gran % (Auto) 0.200, Neut % (Auto) 43.3 L, Lymph % (Auto) 45.0 H, Surry % (Auto) 6.2, Eos % (Auto) 4.5, Baso % (Auto) 0.8, Absolute Neuts (auto) 2.1, Absolute Lymphs (auto) 2.18, Nucleated RBC % 0 01/21/23 05:48: Sodium 139, Potassium 3.8, Chloride 110 H, Carbon Dioxide 25.0, Anion Gap 4 L, BUN 19 H, Creatinine 0.53 L, Estim Creat Clear Calc 150.93, Est GFR (MDRD) Af Amer 150, Est GFR (MDRD) Non-Af 124, BUN/Creatinine Ratio 35.9 H, Glucose 122 H, Calcium 8.9, Triglycerides 213 H, Cholesterol 155, LDL Cholesterol 66, VLDL Cholesterol 43 H, HDL Cholesterol 46, TSH 6.81 H 01/21/23 05:48: Hemoglobin A1c 5.8 H Radiography Diagnostic Testing: Radiology Impression Brain CT 01/20/23 13:02 IMPRESSION: Normal unenhanced CT scan of the brain. Electronically Signed: Geovanny Kent MD at 13:44 EDT , Chest X-Ray 01/20/23 14:10 IMPRESSION: Normal x-ray examination of the chest. Electronically Signed: Geovanny Kent MD at 14:48 EDT , D/C Instructions Discharge Diet: No restrictions Weight Bearing Status: Weight bearing as tolerated Call your doctor if you observe: Fever of 101 or Higher, Coldness, Increased Pain, Numbness or Tingling, Change in Color, Inability to urinate, Inability to have a bowel movement, Shortness of breath, Dizziness, Fainting spells, Swellingin the ankles, Chest pain, Prolonged hiccupping, Increased palpitations (irregular heartbeat) and Calf discomfort When: IN 2 WEEKS Meaningful Use Info Meaningful Use Diagnoses (Choose all that apply): None applicable Discharge Plan Admission Admit Date/Time: 01/20/23 15:02 Primary Reason for Your Visit: Atypical chest pain, noncardiac Attending Provider: Michael Sanchez [facility] Additional Instructions / Restrictions: Patient already on antihistamine regulatory and therefore prescription for Antivert not given. Take it as needed for dizziness Discharge Orders/Prescriptions Prescriptions: New pantoprazole 40 mg Tablet,Delayed Release (Dr/Ec) 40 mg PO BID 30 Days Qty: 60 1RF Rx Instructions: 40 mg twice daily for 2 months and then once daily. atorvastatin 20 mg tablet 20 mg PO QHS Qty: 30 2RF Continued lisinopril 10 MG tablet 20 mg PO DAILY montelukast 10 MG tablet 10 mg PO DAILY@1700 ergocalciferol (vitamin D2) 1,250 mcg (50,000 unit) capsule 1 cap PO FR Label Comments: TAKE 1 CAPSULE EVERY WEEK ascorbic acid (vitamin C) [Vitamin C] 500 mg Tablet 500 mg PO DAILY cyclobenzaprine 5 mg tablet 5 mg PO QHS Label Comments: TAKE 1 TABLET BY MOUTH AT BEDTIME NEEDED for muscle pain Changed loratadine 10 mg tablet 10 mg PO DAILY@1700 PRN (Reason: allergy) 30 Days Qty: 0 0RF naproxen 500 mg tablet 500 mg PO BID PRN (Reason: arthritis pain) 30 Days Qty: 0 0RF Label Comments: TAKE 1 TABLET BY MOUTH TWICE DAILY NEEDED Discontinued lovastatin 20 MG tablet extended release 24 hr 20 mg PO QHS omeprazole 40 mg capsule,delayed release(DR/EC) 40 mg PO QHS Label Comments: Take 1 by mouth every day Referrals / Follow Up: Philip Guadarrama MD [Med Staff - Active Staff] - Within 1 Month (Possible undiagnosed COPD, PFT and sleep study. Quit smoking 22 years ago) Friend,DO Bob [Med Staff - Active Staff] - Within 1 Month (For EGD for possible GERD/PUD/atypical noncardiac chest pain) [facility] [Primary Care Provider] - Disposition Disposition (needs filled in before D/C Order can be placed): Home, Self Care Charges/Coding Visit Charges Inpatient E&M: 24981 Disch Hosp >30min 01/21/23 1320 <Electronically signed by Michael Sanchez MD> Cosigner Signature (if applicable): CC: Dr. Michael Sanchez MD; [facility]~ Signed [facility] Work Phone: 1(291) 975-249304-21-[address] Cox [facility] January 20, 2023 4:38pm Note Date/Time January 20, 2023 12: 36pm [facility] Medical Records Department [address] [place] [address] Emergency Department Summary 01/20/23 MR#: [id number] Acct: [id number] Name: BRANDI SAUCEDA Rep #:[id number] : 1960 62 From: Ag Pollock PCP: [facility] atus:ADM LAWANDA Location: [place] [address] HPI History of Present Illness Chief Complaint: Dizziness Narrative Narrative: 62-year-old female here with dizziness. She also endorses chest pain. States has been feeling numbness all over. This started yesterday. Patient states this has been ongoing, constant and severe. There are no alleviating or exacerbating features. Patient further states there is no associated nausea, shortness of breath. The patient denies recent surgery in the last 4 weeks or immobilization in the last 3 days, denies previous diagnosis of DVT or PE, hemoptysis, unilateral leg swelling or malignancy with treatment the last 6 months. No estrogen use noted. She denies any palpitations. Denies any bleeding diathesis. Denies any vomiting or diarrhea. Patient denies sudden onset of pain, no tearing sensation, no migratory symptoms, weakness or loss ofsensation. Patient denies family history or personal history of Marfan syndromeor Brady-Danlos [facility] Medical History (Updated 01/20/23 @ 15:[address] Michael Sanchez MD) COPD (chronic obstructive pulmonary disease) Diabetes GERD (gastroesophageal reflux disease) Hypertension Migraines Home Medications ergocalciferol (vitamin D2) 1,250 mcg (50,000 unit) capsule 1 cap PO FR SUPPLEMENT 01/21/20 [History Last Taken 09/02/22] lisinopril 10 mg tablet 10 mg PO DAILY blood pressure 01/21/20 [History Last Taken 09/06/22] lovastatin 20 mg tablet,extended release 24 hr 20 mg PO QHS cholesterol 01/21/20[History Last Taken 09/06/22] montelukast 10 mg tablet 10 mg PO DAILY@1700 ALLERGIES 01/21/20 [History Last Taken 09/06/22 17:00] loratadine 10 mg tablet 10 mg PO DAILY@1700 ALLERGIES 06/22/20 [History Last Taken 09/06/22 17:00] ascorbic acid (vitamin C) 500 mg tablet (Vitamin C) 500 mg PO DAILY vitamin 09/07/22 [History Last Taken 09/06/22] omeprazole 40 mg capsule,delayed release 40 mg PO DAILY GERD 09/07/22 [History Last Taken 09/07/22] cyclobenzaprine 5 mg tablet 5 mg PO QHS pain 01/20/23 [History Last Taken 01/19/23] naproxen 500 mg tablet 500 mg PO BID pain 01/20/23 [History Last Taken 01/19/23] Allergy/AdvReac Type Severity Reaction Status Date / Time aspirin Allergy Vomiting Verified 01/20/23 12:25 Surgical History (Updated 01/20/23 @ 16:05 by Cheryl Tovar) H/O shoulder surgery H/O: hysterectomy History of mandibular surgery Social History Smoking Status: Former smoker alcohol intake: former substance use type: does not use ROS ROS ED ROS Narrative Constitutional: Denies fever HEENT: Denies sore throat Neck: Denies neck pain Cardiovascular: Endorses chest pain Respiratory: Denies shortness of breath GI: Denies nausea vomiting or abdominal pain : Denies changes in urinary habits Musculoskeletal: Denies muscle or joint pain Neurologic: Denies numbness weakness, endorses numbness, dizziness Skin denies rash EXAM Physical Exam Narrative Exam Narrative: Nursing triage notes reviewed, Vital signs reviewed Constitutional: please see mdm HENT: MMM Eyes: Pupils equal round and reactive to light, Extraocular muscles intact Neck: No stridor, no JVD, full neck ROM Lungs: Clear to auscultation, No wheezing or rales. No increased work of breathing, no conversational dyspnea, no accessory muscle use, no nasal flaring. No respiratory distress noted Heart: Regular rate and rhythm, No murmurs, No rubs and No gallops, 2+ distal pulses (radial, femoral, posterior tibial) in all extremities Abdomen: Soft, there is no tenderness, rigidity, rebound or guarding, no obviousperitoneal signs, no palpable pulsatile abdominal masses, no auscultated abdominal bruit : No CVAT Extremities: No edema Neuro: Alert and oriented x3, neuro exam at baseline, cranial nerves II through XII are intact. No pain with extraocular muscle movement. There is negative test of skew. Normal speech. 5 of 5 strength in upper and lower extremities inflexion extension. Intact sensation to light touch in upper and lower extremitydermatomes. No truncal or extremity ataxia. No dysdiadochokinesia. Normal gait. 2+ reflexes. No meningeal signs. Negative Babinski. NIH of 0 Skin: No rash or lesions noted Const Vital Signs: 01/20/23 12:22 01/20/23 13:02 01/20/23 14:47 Temperature 96.8 F L Temperature Source Temporal Pulse Rate 86 Respiratory Rate 16 Respiratory Effort Normal Non-Labored Respiratory Pattern Normal Blood Pressure 126/83 H 120/100 H Blood Pressure Mean 97 106 Pulse Ox 93 Oxygen Delivery Method Room Air MDM MDM MDM Narrative Medical decision making narrative: Chief Complaint: Dizziness External records reviewed: No recent advanced imaging of the brain MDM: The patient was hemodynamically stable, afebrile, nontoxic-appearing I considered the following differential diagnosis: Posterior circulation CVA, dehydration, electrolyte abnormalities, arrhythmia, anemia, myocardial ischemia I obtained a broad lab and imaging work-up to further elucidate etiology patientcomplaints. Labs with evidence of myocardial ischemia, EKG without evidence of STEMI. Remainder of labs showed no evidence of severe anemia, electrolyte abnormalities, hepatobiliary pathology, no evidence of UTI. Chest x-ray withoutevidence of pneumonia, pneumothorax. CT scan of the brain was negative. Given the patient advanced age, evidence of NSTEMI, Heart score of 5, she will need observation for serial cardiac biomarkers, telemetry monitoring, serial EKGs andpossible provocative testing. Will discuss with the internal medicine physician. Factors affecting care: History of hypertension, hyperlipidemia Social determinants of health: Former smoker History obtained from others: Shared decision making: I will have a discussion with the patient and or visitors regarding risk/benefits of further testing or admission. They will be made aware of of the risk/benefits inherent in this decision they will be given the opportunity to voice understanding. Consults: Internal Medicine Lab Data Attestation: I reviewed the patient's lab results. Lab results narrative: CBC without leukocytosis, severe anemia, no thrombocytopenia. EKG with normal sinus rhythm, normal axis, prolonged QT, baseline anterior T wave inversions noted, right bundle branch block noted similar to prior EKG on September 2022, no ischemic changes, no injury pattern BMP without evidence of significant electrolyte abnormalities, no anion gap, no acute kidney injury. LFTs show no evidence of hepatobiliary pathology. Initial troponin elevated concerning for myocardial ischemia Urinalysis without evidence of infection Labs: Laboratory Results - last 24 hr 01/20/23 01/20/23 01/20/23 12:35 12:35 13:59 WBC 6.9 RBC 5.32 Hgb 14.7 Hct 45.3 MCV 85.2 MCH 27.6 MCHC 32.5 RDW Std Deviation 43.4 RDW Coeff of Kameron 14.0 Plt Count 208 MPV 10.4 Immature Gran % (Auto) 0.100 Neut % (Auto) 60.1 Lymph % (Auto) 31.1 Surry % (Auto) 5.7 Eos % (Auto) 2.3 Baso % (Auto) 0.7 Absolute Neuts (auto) 4.1 Absolute Lymphs (auto) 2.13 Nucleated RBC % 0 Sodium 139 Potassium 4.0 Chloride 109 H Carbon Dioxide 27.0 Anion Gap 3 L BUN 20 H Creatinine 0.57 Estim Creat Clear Calc 138.89 Est GFR (MDRD) Af Amer 137 Est GFR (MDRD) Non-Af 113 BUN/Creatinine Ratio 34.9 H Glucose 132 H Calcium 8.9 Phosphorus Magnesium Total Bilirubin 0.50 AST 22 ALT 37 Alkaline Phosphatase 106 Troponin I High Sens 128 H* Total Protein 6.6 Albumin 3.8 Globulin 2.8 Albumin/Globulin Ratio 1.4 Urine Color Yellow Urine Clarity Clear Urine pH 7.0 Ur Specific [place] 1.015 Urine Protein Negative Urine Glucose (UA) Normal Urine Ketones Negative Urine Occult Blood Negative Urine Nitrite Negative Urine Bilirubin Negative Urine Urobilinogen Normal Ur Leukocyte Esterase 100 H Urine RBC 0 SEEN Urine WBC 0-5 SEEN Ur Squamous Epith Cells 0 SEEN Urine Bacteria 0 SEEN Urine Mucus 0 SEEN 01/20/23 01/20/23 14:47 14:47 WBC RBC Hgb Hct MCV MCH MCHC RDW Std Deviation RDW Coeff of Kameron Plt Count MPV Immature Gran % (Auto) Neut % (Auto) Lymph % (Auto) [place] % (Auto) Eos % (Auto) Baso % (Auto) Absolute Neuts (auto) Absolute Lymphs (auto) Nucleated RBC % Sodium Potassium Chloride Carbon Dioxide Anion Gap BUN Creatinine Estim Creat Clear Calc Est GFR (MDRD) Af Amer Est GFR (MDRD) Non-Af BUN/Creatinine Ratio Glucose Calcium Phosphorus 3.2 Magnesium 2.1 Total Bilirubin AST ALT Alkaline Phosphatase Troponin I High Sens 118 H Total Protein Albumin Globulin Albumin/Globulin Ratio Urine Color Urine Clarity Urine pH Ur Specific [place] Urine Protein Urine Glucose (UA) Urine Ketones Urine Occult Blood Urine Nitrite Urine Bilirubin Urine Urobilinogen Ur Leukocyte Esterase Urine RBC Urine WBC Ur Squamous Epith Cells Urine Bacteria Urine Mucus Radiography Chest X-Ray - ED: Read by ED Physician Diagnostic Testing: Clinical Impression(s) from Imaging Studies Brain CT 01/20/23 13:02 IMPRESSION: Normal unenhanced CT scan of the brain. Electronically Signed: Geovanny Kent MD at 13:44 EDT , Chest X-Ray 01/20/23 14:10 IMPRESSION: Normal x-ray examination of the chest. Electronically Signed: Geovanny Kent MD at 14:48 EDT , I have personally reviewed the patient's chest x-ray. Chest x-ray is unremarkable for pulmonary edema, pneumothorax, pneumonia or focal cardiopulmonary abnormality. Discharge Plan Dx/Rx/DC Orders Clinical Impression: Non-ST elevation RI (NSTEMI), Dizziness Disposition Disposition: Acute Care Hospital [facility] Discharge Date/Time: 01/20/23 15:40 What to do if you have Problems For any increased pain, shortness of breath, bleeding, nausea or vomiting, chestpain, or any unexpected problems, contact your Primary Care Provider. Call [facility] ([phone]) or report to the closest Emergency Room. Call 911 if necessary. 01/20/23 1638 <Electronically signed by Ag Cox DO> Cosigner Signature (if applicable): CC: [facility] ~ Signed [facility] Work Phone: 1(153) 775-174704-21-2023 History and physical note Author Dr. Sanchez [facility] January 20, 2023 4:00pm Note Date/Time January 20, 2023 4:0 0pm [facility] Medical Records Department [address] [place] [address] H&P Exam - Hospitalist 01/20/23 1502 MR#: [id number] Acct: [id number] Name: BRANDI SAUCEDA Rep #:[id number] : 1960 62 From: Michael Langston PCP: [facility] atus:ADM LAWANDA Location: [address] HPI - General General Date of Admission: 01/20/23 Date of Service: 01/20/23 Chief Complaint: Dizziness started in the morning today. Had atypical chest pain, on and off HPI Narrative BRANDI SAUCEDA, is a 62 F who came to ED for dizziness. Dizziness started in the morning. She also feel whole body now that is started yesterday. It is nonfocal without associated with weakness, dysarthria or dysphagia or vision change. Her dizziness is also chronic problem on and off when she stands up suddenly or banged her head associated with mild blurry vision. She also said she had chest pain on both lower chest but predominantly left inframammary region, nonradiating, localized that lasted for 10 to 15 minutes. She had 2 episodes 1 yesterday night and 1 in the morning today. She has history of COPD and uses scheduled inhalers but denies any change in severity or characteristic of shortness of breath associated with chest pain. Social history: Started smoking in teenage, pack per day quit 22 years ago. About 25 pack years of smoking. Denies substance use. Family history: Her brother has congenital cardiac abnormality with whole and had repair. Denies RI/CAD in her mother or other siblings. Does not know medical history of her father. Vital done in the ED is normal range. Patient is comfortable. 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 Rate 82 bpm, QTc 514 ms, QRS [address]-T changes. No significant change from previous EKG of September 2022. Troponins mildly elevated. [facility] Medical History COPD (chronic obstructive pulmonary disease) Diabetes GERD (gastroesophageal reflux disease) Hypertension Migraines Home Medications ergocalciferol (vitamin D2) 1,250 mcg (50,000 unit) capsule 1 cap PO FR SUPPLEMENT 01/21/20 [History Last Taken 09/02/22] lisinopril 10 mg tablet 10 mg PO DAILY blood pressure 01/21/20 [History Last Taken 09/06/22] lovastatin 20 mg tablet,extended release 24 hr 20 mg PO QHS cholesterol 01/21/20[History Last Taken 09/06/22] montelukast 10 mg tablet 10 mg PO DAILY@1700 ALLERGIES 01/21/20 [History Last Taken 09/06/22 17:00] loratadine 10 mg tablet 10 mg PO DAILY@1700 ALLERGIES 06/22/20 [History Last Taken 09/06/22 17:00] ascorbic acid (vitamin C) 500 mg tablet (Vitamin C) 500 mg PO DAILY vitamin 09/07/22 [History Last Taken 09/06/22] omeprazole 40 mg capsule,delayed release 40 mg PO DAILY GERD 09/07/22 [History Last Taken 09/07/22] Allergy/AdvReac Type Severity Reaction Status Date / Time aspirin Allergy Vomiting Verified 01/20/23 12:25 Surgical History H/O knee surgery H/O: hysterectomy Social History Smoking Status: Former smoker alcohol intake: former substance use type: does not use ROS ROS Narrative Constitutional: Reports chronic fatigue and weakness. No acute fever or URI or flulike symptoms. HEENT: Reports systems reviewed and no addt'l complaints, except as documented Respiratory/Chest: As described in HPI. History of COPD. Chronic wheezing. CVS: No peripheral arterial disease. Rest as described in HPI Gastrointestinal: Denies coffee ground emesis, hematemesis or vomiting Genitourinary: Denies burning urination or new urinary tract symptoms Musculoskeletal: Reports chronic joint pain and limited range of motion Neurologic: Denies seizure-like activity. No history of stroke skin: No ulcer. No rash Endocrinology: Reports systems reviewed and no addt'l complaints, except as documented Hematologic/Lymphatic: Reports systems reviewed and no addt'l complaints, exceptas documented Rest 14 ROS are negative except as mentioned in HPI Vital Signs Vital Signs Vital Signs: 01/20/23 12:22 01/20/23 13:02 Temperature 96.8 F L Temperature Source Temporal Pulse Rate 86 Respiratory Rate 16 Respiratory Effort Normal Non-Labored Respiratory Pattern Normal Blood Pressure 126/83 H Blood Pressure Mean 97 Pulse Ox 93 Oxygen Delivery Method Room Air Weight Weight: 192 lb Body Mass Index (BMI) 43.0 Physical Exam Narrative General: Alert, Oriented x3, Cooperative HEENT: Atraumatic, PERRLA, EOMI, Normocephalic Oral: Oral mucosa moist. No Gingival or Mucosal Lesions/ Ulcerations Neck: Supple, No JVD, Negative Carotid Bruits Lungs: Air entry diminished in bilateral lung bases. Bilateral expiratory rhonchi occasional. No tachypnea or hypoxia. Cardiovascular: Regular rate, Regular Rhythm, Normal S1, Normal S2, systolic murmur right second ICS. Abdomen: Bowel Sounds Present, Soft, Non Tender, Non-Distended : No renal angle tenderness. No suprapubic tenderness. Extremities: Mild 1+ nonpitting chronic edema, Capillary Refill Less than 3 Seconds Skin: No rashes, No breakdown Musculoskeletal: No Tenderness to Palpation of Joints or Extremities. ROM restricted. Muscle strength 4+/5 at knees and hip joints Neurological: Cranial nerves II-XII grossly intact, DTR 2+/4 and Symmetrical, gross sensation of touch and pressure symmetrical and equal on both sides. No acute focal deficit. Psych/Mental Status: Normal Affect, Appropriate. Results Lab / Micro Data Result Diagrams: 01/20/23 12:35 01/20/23 12:35 Labs: Laboratory Results - last 24 hr 01/20/23 12:35: WBC 6.9, RBC 5.32, Hgb 14.7, Hct 45.3, MCV 85.2, MCH 27.6, MCHC 32.5, RDW Std Deviation 43.4, RDW Coeff of Kameron 14.0, Plt Count 208, MPV 10.4, Immature Gran % (Auto) 0.100, Neut % (Auto) 60.1, Lymph % (Auto) 31.1, Surry % (Auto) 5.7, Eos % (Auto) 2.3, Baso % (Auto) 0.7, Absolute Neuts (auto) 4.1, Absolute Lymphs (auto) 2.13, Nucleated RBC % 0 01/20/23 12:35: Sodium 139, Potassium 4.0, Chloride 109 H, Carbon Dioxide 27.0, Anion Gap 3 L, BUN 20 H, Creatinine 0.57, Estim Creat Clear Calc 138.89, Est GFR(MDRD) Af Amer 137, Est GFR (MDRD) Non-Af 113, BUN/Creatinine Ratio 34.9 H, Glucose 132 H, Calcium 8.9, Total Bilirubin 0.50, AST 22, ALT 37, Alkaline Phosphatase 106, Troponin I High Sens 128 H*, Total Protein 6.6, Albumin 3.8, Globulin 2.8, Albumin/Globulin Ratio 1.4 01/20/23 13:59: Urine Color Yellow, Urine Clarity Clear, Urine pH 7.0, Ur Specific [place] 1.015, Urine Protein Negative, Urine Glucose (UA) Normal, UrineKetones Negative, Urine Occult Blood Negative, Urine Nitrite Negative, Urine Bilirubin Negative, Urine Urobilinogen Normal, Ur Leukocyte Esterase 100 H, Urine RBC 0 SEEN, Urine WBC 0-5 SEEN, Ur Squamous Epith Cells 0 SEEN, Urine Bacteria 0 SEEN, Urine Mucus 0 SEEN Radiology Impression Brain CT 01/20/23 13:02 IMPRESSION: Normal unenhanced CT scan of the brain. Electronically Signed: Geovanny Kent MD at 13:44 EDT , Chest X-Ray 01/20/23 14:10 IMPRESSION: Normal x-ray examination of the chest. Electronically Signed: Geovanny Kent MD at 14:48 EDT , Assessment & Plan Assessment/Plan (1) Dizziness: (2) Chest pain, atypical: PLAN: Plan This is a 62-year-old female is being admitted for dizziness and atypical chest pain. 1. Atypical chest pain: Patient is being admitted in PCU. First troponin mildly elevated at 128-second 118. Downward trend. No acute change in EKG. MIAN risk score is 3. Patient was last admitted in September 2022 for similar symptoms of chest pain. At that time patient had elevated troponins and cardiaccath was done which was reported normal. I discussed with the ED physician and spinner frame. Third troponin ordered. Patient also had a stress test by outside spinner frame a year ago and was normal. Plan cycle third troponin. Stress test not recommended as patient is physically deconditioned to walk on treadmill and Lexiscan may be relative contraindication for COPD and unnecessaryin view of recent normal heart cath. 2D echo is ordered for systolic heart murmur. Repeat EKG. Patient on baby aspirin. 2. Acute on chronic intermittent dizziness nonspecific: Patient does not have vertigo. History and exam not supportive of focal neurological deficit. CT head was done which was reported normal. Symptomatic management. Orthostatic vitals. Patient not having nausea or vomiting are acutely sick. 3. Hypertension and dyslipidemia: Blood pressure is controlled. Continue home medication. Fasting profile tomorrow AM. 4. GERD: Chronic medical condition. Might be a reason for atypical chest pain. Continue PPI. Follow-up with GI as an outpatient for EGD. 5. Hyperglycemia: Patient might have prediabetes. A1c ordered for tomorrow AM. Living will/advanced directive/end of life care: Patient does not have living will or advanced directive. She does not endanger power of attorney general for health. Next of kin is her . After discussion of benefits/risks procedures involved with full code, DNR CC arrest and DNR CC, the patient is not yet decided therefore full code. Patient does want artificial life support including intubation, tube feed, ventilator and/chest compression, central venous catheter, vasopressor and DC shock if needed Total time spent in [id number] encounter in discussion of advanced directive 17 minutes. Laboratory Results 01/20/23 12:35: WBC 6.9, RBC 5.32, Hgb 14.7, Hct 45.3, MCV 85.2, MCH 27.6, MCHC 32.5, RDW Std Deviation 43.4, RDW Coeff of Kameron 14.0, Plt Count 208, MPV 10.4, Immature Gran % (Auto) 0.100, Neut % (Auto) 60.1, Lymph % (Auto) 31.1, Surry % (Auto) 5.7, Eos % (Auto) 2.3, Baso % (Auto) 0.7, Absolute Neuts (auto) 4.1, Absolute Lymphs (auto) 2.13, Nucleated RBC % 0 01/20/23 12:35: Sodium 139, Potassium 4.0, Chloride 109 H, Carbon Dioxide 27.0, Anion Gap 3 L, BUN 20 H, Creatinine 0.57, Estim Creat Clear Calc 138.89, Est GFR(MDRD) Af Amer 137, Est GFR (MDRD) Non-Af 113, BUN/Creatinine Ratio 34.9 H, Glucose 132 H, Calcium 8.9, Total Bilirubin 0.50, AST 22, ALT 37, Alkaline Phosphatase 106, Troponin I High Sens 128 H*, Total Protein 6.6, Albumin 3.8, Globulin 2.8, Albumin/Globulin Ratio 1.4 01/20/23 13:59: Urine Color Yellow, Urine Clarity Clear, Urine pH 7.0, Ur Specific [place] 1.015, Urine Protein Negative, Urine Glucose (UA) Normal, UrineKetones Negative, Urine Occult Blood Negative, Urine Nitrite Negative, Urine Bilirubin Negative, Urine Urobilinogen Normal, Ur Leukocyte Esterase 100 H, Urine RBC 0 SEEN, Urine WBC 0-5 SEEN, Ur Squamous Epith Cells 0 SEEN, Urine Bacteria 0 SEEN, Urine Mucus 0 SEEN 01/20/23 14:47: Troponin I High Sens 118 H 01/20/23 14:47: Phosphorus Pending, Magnesium Pending Clinical Impression(s) from Imaging Studies Brain CT 01/20/23 13:02 IMPRESSION: Normal unenhanced CT scan of the brain. Chest X-Ray 01/20/23 14:10 IMPRESSION: Normal x-ray examination of the chest. Charges/Coding Visit Charges Inpatient E&M: 95645 Init Hosp L3 Procedures Hospitalists Procedures: 53524 Advncd Care Plan 30 Min 01/20/23 1600 <Electronically signed by Michael Sanchez MD> Cosigner Signature (if applicable): CC: Dr. Michael Sanchez MD; [facility]~ Signed [facility] Work Phone: [phone]) 163-303311-10-2021 History of Present illness Narrative* Dixie Hansen, RT(R) - 08/11/2021 1:50 PM EST Radiology Service Progress Note PATIENT NAME: Brandi Sauceda DATE OF SERVICE: August 11, 2021 TIME: 2:08 PM PATIENT IDENTITY VERIFICATION COMPLETED USING TWO (2) IDENTIFIERS: Name and Date of confirmedby patient verbally. FALL SCREENING: Has the patient had 2 falls in the last year or 1 fall with injury or currently using an Ambulatory Assistive Device (Walker, Cane, Wheelchair, Crutches, etc.)? No PATIENT GENDER DATA: Female. status: : No status: NO. PATIENT RELEVANT IMPLANT DATA REVIEWED: Not Applicable RADIOLOGY DEPARTMENT: General X-ray: Exam(s) Completed: Lower Extremity X- Ray(s): Foot, Right and Wt. Bearing PERIPHERAL IV DATA: Not applicable SIGNED BY: RT Chin(R) August 11, 2021 2:08 PM documented in this encounterMer[facility] HospitalDischar summary Author Natan Gusman [facility] May 13, 2023 10:51am Note Date/Time May 13, 2023 10 :05am [facility] Medical Records Department [address] [place] [address] Emergency Department Summary 05/13/23 MR#: [id number] Acct: [id number] Name: BRANDI SAUCEDA Rep #:[id number] : 1960 62 From: Natan Gusman MD PCP: [facility] St atus:REG ER Location: ED HPI HPI - Fall History of Present Illness Chief Complaint: Fall Detail of Chief Complaint: Fall at work injuring the left knee, hand and elbow Informant: patient Occured/Mechanism Occurred: Today and Hours Mechanism/Context: Yes same level fall Narrative: Patient was at work. She tripped. She slid and put her arms out to break her fall. Usually ambulates: Without assistance Pain/Injury Location: Left elbow, hand and knee Worsened by: Movement and palpation Relieved by: Nothing Associated Symptoms Associated Symptoms: Negative for Parasthesias, Weakness, Loss of function, Inability to ambulate, Loss of consciousness or Amnesia Narrative Narrative: Patient is a 62-year-old mtopn-sitb-[id number] woman who presents because of injury that occurred at work. She fell and put her arms out. She comes planes of pain to the left hand, elbow and left knee. She denies head trauma. She states she is on an anticoagulant. Review of her list reveals no anticoagulant and she is unable to name an anticoagulant. She denies visual, ocular auditory symptoms. She denies neck pain. She denies cardiac or respiratory symptoms. She denies paresthesia, anesthesia or motor weakness upper or lower extremities. Tetanus is unknown. Tetanus Immunization: Unknown Prior similar symptoms: No Recent Illness/Hospitalization: No PFSH PFSH Medical History Chronic bronchitis COPD (chronic obstructive pulmonary disease) Diabetes GERD (gastroesophageal reflux disease) Hypertension Migraines SOURAV (obstructive sleep apnea) Home Medications ergocalciferol (vitamin D2) 1,250 mcg (50,000 unit) capsule 1 cap PO FR SUPPLEMENT 01/21/20 [History Last Taken 01/13/23] lisinopril 10 mg tablet 20 mg PO DAILY blood pressure 01/21/20 [History Last Taken 01/19/23] montelukast 10 mg tablet 10 mg PO DAILY@1700 ALLERGIES 01/21/20 [History Last Taken 01/19/23] ascorbic acid (vitamin C) 500 mg tablet (Vitamin C) 500 mg PO DAILY vitamin 09/07/22 [History Last Taken 01/19/23] cyclobenzaprine 5 mg tablet 5 mg PO QHS pain 01/20/23 [History Last Taken 01/19/23] atorvastatin 20 mg tablet 20 mg PO QHS #30 tabs 01/21/23 [Rx Last Taken Unknown] loratadine 10 mg tablet 10 mg PO DAILY@1700 PRN allergy 30 days #0 tabs 01/21/23[Rx Last Taken 01/19/23] aspirin 81 mg tablet,delayed release 81 mg PO DAILY 03/15/23 [History Last Taken Unknown] pantoprazole 40 mg tablet,delayed release 40 mg PO QAM #90 tabs 03/15/23 [Rx Last Taken Unknown] sucralfate 1 gram tablet 1 g PO BID #60 tabs 05/09/23 [Rx Last Taken Unknown] Allergy/AdvReac Type Severity Reaction Status Date / Time aspirin Allergy Vomiting Verified 05/13/23 09:50 Surgical History H/O shoulder surgery H/O: hysterectomy History of mandibular surgery Social History Smoking Status: Former smoker alcohol intake: former substance use type: does not use ROS ROS ED Constitutional Constitutional ED: Denies chills, fever(s), subjective, sweats or weight loss Eyes Eyes: Denies blurry vision or change in vision ENT ENT ED: Denies ear pain or sore throat Cardiovascular Cardiovascular: Denies chest pain or palpitations Respiratory/Chest Respiratory/Chest: Denies cough or dyspnea Gastrointestinal Gastrointestinal: Denies nausea or vomiting Musculoskeletal Musculoskeletal: Denies back pain or neck pain Integumentary Reports other Details: Bruising to left hand, proximal left forearm/elbow, left knee and an abrasion dorsal surface left ring finger over the proximal phalanx region. Neurologic Neurologic: Denies headache(s) or paresthesias Hematologic/Lymphatic Hematologic/Lymphatic: Reports easy bruising; Denies easy bleeding EXAM Physical Exam Const Vital Signs: 05/13/23 09:44 05/13/23 10:22 Temperature 97.9 F Temperature Source Temporal Pulse Rate 88 Respiratory Rate 18 Respiratory Effort Normal Blood Pressure 118/85 H Blood Pressure Mean 96 Pulse Ox 96 Oxygen Delivery Method Room Air Positive well nourished, well developed and obese General Appearance ED: well developed and NAD Nutritional Appearance: obese HEENT Reports normocephalic and TM's normal bilaterally HEENT Narrative: There is no evidence of trauma to the nose. There is no dental trauma. atraumatic Eyes PERRL and EOMs intact bilaterally General Eye ED: Negative for pale conjunctiva or scleral icterus Neck full ROM and no lymphadenopathy Chest Wall inspection of chest normal and palpation of chest normal Resp normal respiratory effort, no retractions and clear to auscultation bilaterally Cardio regular rate, regular rhythm, S1 normal heart sound, S2 normal heart sound and no murmurs Extremity Extremity Narrative: There is Pingel patient with a lateral epicondyles olecranon process. She has pain with supination pronation but not over the radial head per se. There is nopain the patient with distal radius or ulna. There is no pain that is over the carpal bones, anatomical snuffbox or with axial loading of the thumb. There is pain to outpatient over the third, fourth and fifth metacarpal bone left hand. There is soft tissue swelling with ecchymosis noted. There is an abrasion dorsal surface of the left ring finger with pain elevation of the proximal phalanx. The extensor minimally, extensor commonness and extensor inside tendonare intact. The flexor digitorum superficialis and flexor digitorum profundus is intact for the index, long, ring and little finger. There is no subungual hematoma of the thumb or fingers. Axillary, median, radial and ulnar function intact. Radial pulses palpable. There is no pain ovation over the proximal left humerus. There is soft tissue swelling and ecchymosis noted left knee. There is pain outpatient along the left joint line. This may be due to contusion versus bony injury. The patella is not ballotable. There is swelling but no effusion appreciated. Patient able to extend to 180 degrees and flex to 90 degrees. There is no laxity varus valgus stress testing. Lynette's test was negative. Patient is able to ambulate and bear weight. She does have a slight limp. Neuro oriented x3, CN's II-XII intact bilaterally, moves all extremities, no focal motor deficits and no sensory deficits noted [place] Coma Scale: document GCS findings Spontaneous Obeys Commands Oriented 15 Sensorium / Orientation: alert Motor Exam: strength 5/5 throughout Psych mental status grossly normal and thought process normal Skin Skin Narrative: Contusion as previously described under the extremity portion of the EMR Lesions: no lesions Rashes: no rashes Trauma: abrasion MDM MDM MDM Narrative Medical decision making narrative: Patient received Tylenol for her pain. X-ray of the left hand, elbow and knee were obtained to evaluate for contusion versus fracture. Since there is no headtrauma she has no neurologic symptoms imaging of the head was not obtained. Since there is no complaint of neck point at this point there is no indication to x-ray the neck. Radiography Chest X-Ray - ED: Read by ED Physician (Three-view x-ray of the elbow and hand and 4 view x-ray of the knee was independent reviewed interpreted by me at 1047. The elbow x-ray reveals no evidence of anterior posterior fat pad, fracture, subluxation or dislocation. The hand x-ray reveals no evidence of fracture or foreign body. The x-ra) Discharge Plan Triage Chief Complaint: Fall ED Provider: Natan Gusman Dx/Rx/DC Orders Clinical Impression: Injury due to fall, Contusion of left hand including fingers, Contusion of leftelbow, initial encounter, Abrasion of left ring finger, initial encounter, Contusion of left knee, initial encounter Instructions: ED Abrasion, ED Contusion, Lower Extremity, ED Contusion, Upper Extremity Prescriptions: No Action aspirin 81 mg tablet,delayed release (DR/EC) 81 mg PO DAILY pantoprazole 40 mg tablet,delayed release (DR/EC) 40 mg PO QAM Qty: 90 3RF lisinopril 10 MG tablet 20 mg PO DAILY montelukast 10 MG tablet 10 mg PO DAILY@1700 ergocalciferol (vitamin D2) 1,250 mcg (50,000 unit) capsule 1 cap PO FR Patient Comments: TAKE 1 CAPSULE EVERY WEEK ascorbic acid (vitamin C) [Vitamin C] 500 mg Tablet 500 mg PO DAILY cyclobenzaprine 5 mg tablet 5 mg PO QHS Patient Comments: TAKE 1 TABLET BY MOUTH AT BEDTIME NEEDED for muscle pain atorvastatin 20 mg tablet 20 mg PO QHS Qty: 30 2RF loratadine 10 mg tablet 10 mg PO DAILY@1700 PRN (Reason: allergy) 30 Days Qty: 0 0RF sucralfate 1 gram tablet 1 g PO BID Qty: 60 0RF [facility]errals: [facility] [Group of Physicians] - 3-5 Days [facility] [Primary Care Provider] - Activity Restrictions/Additional Instructions: 1. You may hurt in more places and you presently do over the next several days 2. Your pain may increase over the next 24 to 48 hours 3. Apply ice to areas of discomfort 6-10 times a day for the next 3 to 5 days 4. Follow-up with [facility] 5. You may take Tylenol every 4-6 hours for pain. Disposition Disposition: Home, Self Care What to do if you have Problems For any increased pain, shortness of breath, bleeding, nausea or vomiting, chestpain, or any unexpected problems, contact your Primary Care Provider. Call [facility] ([phone]) or report to the closest Emergency Room. Call 911 if necessary. 05/13/23 1051 <Electronically signed by Natan Gusman MD> Cosigner Signature (if applicable): CC: [facility] ~ Signed [facility] Work Phone: Evaluation + Plan note No data available for this section [facility] evaluation noteNo assessment information available [facility] Work Phone: evaluation note* Diagnosis Onset Date Resolution Status Chest pain acute Non-ST elevation RI (NSTEMI) acute Vomiting and diarrhea acute [facility] Work Phone: Evaluation note* Diagnosis Onset Date Resolution Status Dizziness acute Non-ST elevation RI (NSTEMI) acute [facility] Work Phone: Evaluation note* Diagnosis Onset Date Resolution Status Chest pain, atypical acute Dizziness acute Non-ST elevation RI (NSTEMI) [facility] Work Phone: Evaluation note* Diagnosis Onset Date Resolution Status Chest pain, atypical resolve d Dizziness resolved SOURAV (obstructive sleep apnea) acute Chronic bronchitis chronic [facility] Work Phone: evaluation note* Diagnosis Onset Date Resolution Status Chest pain, atypical resolve d Dizziness resolved SOURAV (obstructive sleep apnea) acute Chronic bronchitis chronic Atypical chest pain chronic Epigastric pain chronic GERD (gastroesophageal reflux disease) chronic [facility] Work Phone: evaluation note* Diagnosis Onychomycosis- Primary Dermatophytosis of nail Diminished pulses in lower extremity Other symptoms involving cardiovascular system Pain in toe of left foot Pain in limb Pain in toe of right foot Pain in limb documented in this encounter [facility] note* Diagnosis Onychomycosis- Primary Dermatophytosis of nail documented in this encounter [facility] note* Diagnosis Preoperative examination- Primary Preoperative examination, unspecified Chronic bronchitis with COPD (chronic obstructive pulmonary disease) (HCC) Obstructive chronic bronchitis without exacerbation Fatty liver Other chronic nonalcoholic liver disease Gastroesophageal reflux disease, unspecified whether esophagitis present Valvular heart disease Endocarditis, valve unspecified, unspecified cause Primary hypertension Unspecified essential hypertension Mixed hyperlipidemia Morbidly obese (HCC) Morbid obesity Onychomycosis Dermatophytosis of nail documented in this encounter [facility] note* Diagnosis Open wound of toe, initial encounter- Primary [facility] No data available for this section [facility] Progress note No data available for this section [facility] Reason for referral (narrative)* Outpatient Procedure (Routine) - Pending Review Specialty Diagnoses / Procedures Referred By Johnnie t Referred To [facility] Diagnoses Diminished pulses in lower extremity Onychomycosis Procedures PVR ANK PRESS CHETAN VAS LAB NON-INVAS PHYSIOLOGIC STD EXTREMITY ART 2 LEVEL [employer] [address] [place] [address] [facility] [place] [address] [place] [address] Referral ID Status Reason Start Date Expiration Date Visits Requested Visits Authorized [id number] Pending Review Auto-Generat ed Referral 3 08/14/2024 1 1 [facility] for referral (narrative)No reason for referral information availableWSumma Health Work Phone: Chief Complaint and Reason for Visit Chief Complaint SCREENING Chief Complaint NSTEMI Reason for Visit Chest pain Non-ST elevation RI (NSTEMI) Vomiting and diarrhea Chief Complaint NSTEMI NSTEMI NSTEMI NSTEMI NSTEMI Reason for Visit Chest pain Non-ST elevation RI (NSTEMI) Vomiting and diarrhea Chief Complaint DIZZINESS AND CP Reason for Visit Dizziness Non-ST elevation RI (NSTEMI) Chief Complaint DIZZINESS AND CP DIZZINESS AND CP Reason for Visit Chest pain, atypical Dizziness Non-ST elevation RI (NSTEMI) Chief Complaint DIZZINESS AND CP CP ADMIT DIZZINESS AND CP Hospital FU PALPITATIONS, DIZZINESS Reason for Visit Chest pain, atypical Dizziness SOURAV (obstructive sleep apnea) Chronic bronchitis Chief Complaint DIZZINESS AND CP CP ADMIT DIZZINESS AND CP Hospital FU PALPITATIONS, DIZZINESS ER FU FALL Reason for Visit Chest pain, atypical Dizziness SOURAV (obstructive sleep apnea) Chronic bronchitis Atypical chest pain Epigastric pain GERD (gastroesophageal reflux disease) Chief Complaint Admit Date Pt to follow up per PCP February 07, 2025 1: 46pm G47.33 - Obstructive sleep apnea (adult) (pediatri February 25, 2025 1:00pm Reason for Visit Admit Date Chronic bronchitis February 07, 2025 1:46pm SOURAV (obstructive sleep apnea) February 07, 2 025 1:46pm Chief Complaint Admit Date Pt to follow up per PCP February 07, 2025 1: 46pm G47.33 - Obstructive sleep apnea (adult) (pediatri February 25, 2025 1:00pm SCREENING March 14, 2025 10:5 3am Chief Complaint Admit Date Pt to follow up per PCP February 07, 2025 1: 46pm G47.33 - Obstructive sleep apnea (adult) (pediatri February 25, 2025 1:00pm SCREENING March 14, 2025 10:5 3am J42 - Unspecified chronic bronchitis [place] 2024 12:38pm Gastroesophageal reflux disease [facility]GERD) [facility] 2:10[facility] Reason for Visit Admit Date Chronic bronchitis February 07, 2025 1:46pm SOURAV (obstructive sleep apnea) February 07, 2 025 1:46pm Nausea March 25, 2025 2:10 pm Epigastric pain March 25, 2025 2:10 pm GERD (gastroesophageal reflux disease) [facility] 20[facility] 2:10pm Advance Directives No Advanced Directives Records Found Advance Directive Response Recorded Date/ Time Living Will No November 25 021 10:51am Power of Traveling Construction Superintendent No November 25, 2020 10:51am Advance Directive Response Recorded Date/ Time Living Will No September 07 3:40pm Power of Traveling Construction Superintendent No September 07, 2022 3:40pm Advance Directive Response Recorded Date/ Time Living Will No January 20, 2023 12:58pm Power of Traveling Construction Superintendent No January 20 12:58pm Advance Directive Response Recorded Date/ Time Living Will No January 20, 2023 3:51pm Power of Traveling Construction Superintendent No January 20 3:51pm Advance Directive Response Recorded Date/ Time Living Will No May 13 10:22am Power of Traveling Construction Superintendent No May 13 023 10:22am Advance Directive Response Recorded Date/ Time Living Will No April 14, 2024 4:53pm Do you have a Healthcare Power of Traveling Construction Superintendent? No April 14, 2024 4:53pm Summary Purpose Family History No Family History Records Found Relationship Condition Age at Onset Recorded Date/T madhav father Diabetes mellitus Unknown Additional Source Comments Goals (unrecognized section and content) Goals may be documented in a n alternate sectionGoals may be documented in an alternate sectionGoals may be documented in an alternate section No data available for this section No data available for this sectionGoals may be documented in an alternate sectionGoals may be documented in an alternate sectionGoals may be documented in an alternate sectionGoals may be documented in an alternate section Care Teams (unrecognized sec tion and content) Team Status: Active Member Role Status Dates Jaye Sterling Family Provider Active [facility] Primary Care Provider A ctive Team Status: Active Member Role Status Dates [facility] Primary Care Provider A ctive Dr. Ag Cox DO Emergency Provider Active Dr. Michael Sanchez MD Admit Provider, Attending Provi janey Active Team Status: Active Member Role Status Dates [facility] Primary Care Provider A ctive Dr. Kary Ca MD Attending Provider Active Team Status: Active Member Role Status Dates [facility] Primary Care Provider A ctive Dr. Ag Cox DO Emergency Provider Active Dr. Michael Sanchez MD Admit Provider, A ttending Provider, Other Provider Active Team Status: Inactive Member Role Status Dates [facility] Primary Care Provider A ctive Dr. Ag Cox DO Emergency Provider Active Dr. Michael Sanchez MD Admit Provider, Attending Provi janey Active Team Status: Inactive Member Role Status Dates [facility] Primary Care Provider, Referring Provider Active Dr. Philip Guadarrama MD Attending Provider Active Team Status: Active Member Role Status Dates [facility] Primary Care Provider A ctive Dr. Jovani Dee MD Attending Provider, Referring Pro vider Active Team Status: Inactive Member Role Status Dates [facility] Primary Care Provider A ctive Yenny Kauffman GAS OR WATER METER INSTALLER, GAS OR WATER METER INSTALLER-C Attending Provider, Referrin g Provider Active Team Status: Inactive Member Role Status Dates [facility] Primary Care Provider, Referring Provider Active Bri Lindsey GAS OR WATER METER INSTALLER, GAS OR WATER METER INSTALLER-C Attending Provider Active Team Status: Inactive Member Role Status Dates [facility] Primary Care Provider A ctive Dr. Natan Gusman MD Emergency Provider Active Cable Way Operator Relationship Specialty Start Date End Date Cayla Chowdhury CNP [address] [place] [address] PCP - General Internal Medicine 09/03/21 Russell Fiore [address] [place] [address] Referring Dermatology 04/24/[address] Relationship Specialty Start Date End Date Cayla Chowdhury CNP [address] [place] [address] PCP - General Internal Medicine 09/03/21 Russell Fiore [address] [place] [address] Referring Dermatology 04/24/23 Yenny Kauffman NP [address] [place] [address] Referring Family Medicine 10/16/[address] Relationship Specialty Start Date End Date Yenny Kauffman NP [address] [place] [phone] PCP - General Family Medicine 11/29/23 Russell Fiore [address] [place] [address] Referring Dermatology 04/24/23 Yenny Kauffman NP [address] [place] [phone] Referring Family Medicine 10/16/[address] Relationship Specialty Start Date End Date Cayla Chowdhury CNP [address] [place] [address] PCP - General Internal Medicine 09/03/21 11/28/23 Yenny Kauffman NP [address] [place] [phone] PCP - General Family Medicine 11/29/23 Russell Fiore [address] [place] [address] Referring Dermatology 04/24/23 Yenny Kauffman NP [address] [place] [phone] Referring Family Medicine 10/16/[address] Relationship Specialty Start Date End Date Yenny Kauffman NP [address] [place] [phone] PCP - General Family Medicine 11/29/23 Russell Fiore [address] [place] [address] Referring Dermatology 04/24/23 Yenny Kauffman NP [address] [place] [address] Referring Family Medicine 10/16/[address] Relationship Specialty Start Date End Date Yenny Kauffman NP [address] [place] [address] PCP - General Family Medicine 11/29/23 Russell Fiore [address] [place] [address] Referring Dermatology 04/24/23 Yenny Kauffman NP [address] [place] [phone] Referring Family Medicine 10/16/[address] Relationship Specialty Start Date End Date Jaye Sterling, KINDERGARTEN TUTOR [address] [place] [address] PCP - General Family Medicine 12/01/16 09/02/21 Cayla Chowdhury, KINDER[employer] TUTOR [address] [place] [address] Referring Internal Medicine 05/28/21 09/02/21 Team Status: Active Member Role Status Dates Yenny SIM, GAS OR WATER METER INSTALLER-C Primary Care Provider Activ e Team Status: Inactive Member Role Status Dates Yenny SIM, GAS OR WATER METER INSTALLER-C Primary Care Provider Activ e Start: January 14, 2025 End: January 14, 2025 Yenny SIM, GAS OR WATER METER INSTALLER-C Attending Provider Active Start: January 14, 2025 End: January 14, 2025 Team Status: Inactive Member Role Status Dates Yenny SIM, GAS OR WATER METER INSTALLER-C Primary Care Provider Activ e Start: February 07, 2025 End: February 07, 2025 Yenny SIM, GAS OR WATER METER INSTALLER-C Referring Provider Active Start: February 07, 2025 End: February 07, 2025 Dolores Hunt GAS OR WATER METER INSTALLER-C Attending Provider Active Start: February 07, 2025 End: February 07, 2025 Team Status: Inactive Member Role Status Dates Yenny SIM, GAS OR WATER METER INSTALLER-C Primary Care Provider Activ e Start: February 25, 2025 End: February 25, 2025 Dolores Hunt GAS OR WATER METER INSTALLER-C Attending Provider Active Start: February 25, 2025 End: February 25, 2025 Dolores Hunt NP-C Referring Provider Active Start: February 25, 2025 End: February 25, 2025 Team Status: Inactive Member Role Status Dates Yenny SIM, GAS OR WATER METER INSTALLER-C Primary Care Provider Activ e Start: March 14, 2025 End: March 14, 2025 Yenny SIM, GAS OR WATER METER INSTALLER-C Attending Provider Active Start: March 14, 2025 End: March 14, 2025 Yenny JULESCecil, GAS OR WATER METER INSTALLER-C Referring Provider Active Start: March 14, 2025 End: March 14, 2025 Team Status: Active Member Role Status Dates Yenny JULESC, GAS OR WATER METER INSTALLER-C Primary Care Provider Activ e Start: March 21, 2025 Dolores Hunt GAS OR WATER METER INSTALLER-C Attending Provider Active Start: March 21, 2025 Dolores Hunt GAS OR WATER METER INSTALLER-C Referring Provider Active Start: March 21, 2025 Team Status: Inactive Member Role Status Dates Yenny JULESC, GAS OR WATER METER INSTALLER-C Primary Care Provider Activ e Start: March 25, 2025 End: March 25, 2025 Yenny JULESC, GAS OR WATER METER INSTALLER-C Referring Provider Active Start: March 25, 2025 End: March 25, 2025 Jennie Gutierrez GAS OR WATER METER INSTALLER-C Attending Provider Active S tart: March 25, 2025 End: March 25, 2025 Team Status: Active Member Role/Relationship Status Dates Yenny JULESC, GAS OR WATER METER INSTALLER-C Primary Care Provider Activ e Team Status: Inactive Member Role/Relationship Status Dates Yenny Kauffman VSC, GAS OR WATER METER INSTALLER-C Primary Care Provider Activ e Start: January 14, 2025 End: January 14, 2025 Yennyjorge luis JULESC, GAS OR WATER METER INSTALLER-C Attending Provider Active Start: January 14, 2025 End: January 14, 2025 Team Status: Inactive Member Role/Relationship Status Dates Yenny Kauffman VSC, GAS OR WATER METER INSTALLER-C Primary Care Provider Activ e Start: February 07, 2025 End: February 07, 2025 Yenny Jamari JULESC, GAS OR WATER METER INSTALLER-C Referring Provider Active Start: February 07, 2025 End: February 07, 2025 Dolores Hunt GAS OR WATER METER INSTALLER-C Attending Provider Active Start: February 07, 2025 End: February 07, 2025 Team Status: Inactive Member Role/Relationship Status Dates Yenny JULESC, GAS OR WATER METER INSTALLER-C Primary Care Provider Activ e Start: February 25, 2025 End: February 25, 2025 Dolores Hunt GAS OR WATER METER INSTALLER-C Attending Provider Active Start: February 25, 2025 End: February 25, 2025 Dolores Hunt GAS OR WATER METER INSTALLER-C Referring Provider Active Start: February 25, 2025 End: February 25, 2025 Team Status: Inactive Member Role/Relationship Status Dates Yenny JULESC, GAS OR WATER METER INSTALLER-C Primary Care Provider Activ e Start: March 14, 2025 End: March 14, 2025 Yenny JULESC, GAS OR WATER METER INSTALLER-C Attending Provider Active Start: March 14, 2025 End: March 14, 2025 Yenny Kauffman VSC, GAS OR WATER METER INSTALLER-C Referring Provider Active Start: March 14, 2025 End: March 14, 2025 Team Status: Inactive Member Role/Relationship Status Dates Yenny JULESC, GAS OR WATER METER INSTALLER-C Primary Care Provider Activ e Start: March 21, 2025 End: March 21, 2025 Dolores Hunt GAS OR WATER METER INSTALLER-C Attending Provider Active Start: March 21, 2025 End: March 21, 2025 Dolores Hunt GAS OR WATER METER INSTALLER-C Referring Provider Active Start: March 21, 2025 End: March 21, 2025 Team Status: Inactive Member Role/Relationship Status Dates Yenny JULESC, GAS OR WATER METER INSTALLER-C Primary Care Provider Activ e Start: March 25, 2025 End: March 25, 2025 Yenny JULESC, GAS OR WATER METER INSTALLER-C Referring Provider Active Start: March 25, 2025 End: March 25, 2025 Jennie Gutierrez GAS OR WATER METER INSTALLER-C Attending Provider Active S tart: March 25, 2025 End: March 25, 2025 Source Comments (unrecognize d section and content) In the event this informatio n is protected by the Federal Confidentiality of Alcohol and Drug Abuse Patient Records regulations: The Federal rules restrict any use of the information to criminally investigate or prosecute any alcohol or drug abuse patient.[facility] the event this information is protected by the Federal Confidentiality of Alcohol and Drug Abuse Patient Records regulations: The Federal rules restrict any use of the information to criminally investigate or prosecute any alcohol or drug abuse patient.[facility] the event this information is protected by the Federal Confidentiality of Alcohol and Drug Abuse Patient Records regulations: The Federal rules restrict any use of the information to criminally investigate or prosecute any alcohol or drug abuse patient.[facility] the event this information is protected by the Federal Confidentiality of Alcohol and Drug Abuse Patient Records regulations: The Federal rules restrict any use of the information to criminally investigate or prosecute any alcohol or drug abuse patient.[facility] the event this information is protected by the Federal Confidentiality of Alcohol and Drug Abuse Patient Records regulations: The Federal rules restrict any use of the information to criminally investigate or prosecute any alcohol or drug abuse patient.[facility] the event this information is protected by the Federal Confidentiality of Alcohol and Drug Abuse Patient Records regulations: The Federal rules restrict any use of the information to criminally investigate or prosecute any alcohol or drug abuse patient.[facility] the event this information is protected by the Federal Confidentiality of Alcohol and Drug Abuse Patient Records regulations: The Federal rules restrict any use of the information to criminally investigate or prosecute any alcohol or drug abuse patient.[facility] Reason for Visit (unrecogniz ed section and content) Reason Comments Established Patient Follow Up Post Op Specialty Diagnoses / Procedures Referred By Contact Referred To Contact Podiatry / [facility] Diagnoses Toenail deformity Procedures Needs HCAP renewal Yenny Kauffman, VADIM [address] [place] [address] [facility] [address] [place] [address] Referral ID Status Reason Start Date Expiration Date Visits Requested Visits Authorized [id number] Authorized Patient Cleared - Qualified HCAP/501/FA 10/23/2023 01/21/2024 99 99 Reason Comments New Pain Specialty Diagnoses / Procedures Referred By Contac t Referred To Contact [facility] Diagnoses medically necessary Procedures medically necessary Self [facility] [place] [address] Referral ID Status Reason Start Date Expiration Date Visits Requested Visits Authorized [id number] Authorized Financial Clearance Required - Self Pay Patient Cleared - Qualified HCAP/501/FA 3 10/23/2023 99 99 Reason Comments Established Patient Follow Up Nail Check Reason Comments Consult Reason Comments Patient Update Reason Comments Patient Question Specialty Diagnoses / Procedures Referred By Contac t Referred To Contact Radiology / [facility] Diagnoses xray ml Procedures XR GENERAL 7 Cayla Chowdhury, [employer] TUTOR [address] [place] [address] [facility] [address] [place] [address] Referral ID Status Reason Start Date Expiration Date V isits Requested Visits Authorized [id number] Closed Patient Cleared - Qualified 100% FAS 08/11/2021 11/09/2021 99 99 INFORMATION SOURCE (unrecogn ized section and content) DATE CREATED AUTHOR 12/09/2023 [facility] DATE CREATED AUTHOR AUTHOR'S ORGANIZ ATION 03/13/2024 [facility] ([place]) DATE CREATED AUTHOR AUTHOR'S ORGANIZ ATION 07/05/2024 [facility] DATE CREATED AUTHOR AUTHOR'S ORGANIZ ATION 04/13/2025 [facility] FOR RECORDS PERTAINING TO PATIENTS WHO ARE OR HAVE BEEN ENROLLED IN A CHEMICAL DEPENDENCY/SUBSTANCEABUSE PROGRAM, SOME INFORMATION MAY BE OMITTED. This clinical summary was aggregated from multiple sources. Caution should be exercised in using it in the provision of clinical care. This summary normalizes information from multiple sources, and as a consequence, information in this document may materially change the coding, format and clinical context of patient data. In addition, data may be omitted in some cases. CLINICAL DECISIONS SHOULD BE BASED ON THE PRIMARY CLINICAL RECORDS. [employer] provides no warranty or guarantee of the accuracy or completeness of information in this document.
[2025-04-13 12:56] VITALS: BP 144/96; PULSE 75; RESP 16; TEMP 36.6; O2SAT 97
--- NOTE | 2025-04-13 13:05 | CM.ED ---
Social Work Date of referral: 04/13/25 Reason for referral: Patient requesting information on Advanced Care Planning/Directives Referred by: ED nurse Patient provided consent to Social Work visit. Homogenizer Operator provided patient with a handout from [facility] where patient is able to call and make an appointment and get assistance with completion of Advanced Care Directives which patient took and expressed appreciation for. Homogenizer Operator asked patient if she would also like a hard copy of all of the paperwork for her to fill out at home which patient declined. Dulce Banks, INSTRUMENT SPECIALIST, NUCLEAR PHYSICIAN
== END 2025-04-13 13:19 | disposition home or self-care (01) ==
PROVIDERS: Emergency Provider Emergency Medicine; PCP Nurse Practitioner Family; Visit Provider Emergency Medicine
DX: R09.A2 Foreign body sensation, throat (principal); J44.9 Chronic obstructive pulmonary disease, unspecified; E11.9 Type 2 diabetes mellitus without complications; Z87.891 Personal history of nicotine dependence; I10 Essential (primary) hypertension; K21.9 Gastro-esophageal reflux disease without esophagitis; Z79.899 Other long term (current) drug therapy
CPT/HCPCS: 99283

== ENCOUNTER → 2025-04-15 | Outpatient (CLI) | payer MEDICARE, SELFPAY ==
[2025-04-15 16:37] LABS: Hematocrit 44.4 % (37-47); Hemoglobin 14.7 g/dL (12.0-15.0); Immature Granulocytes Count 0.020 X10^3/uL (0.0-0.0); Mean Corp Hgb Conc 33.1 g/dL (32-36); Mean Corpuscular Volume 85.1 fL (81-99); Mean Platelet Vol. 10.6 fl (6.2-12.0); NRBC Flagged by Analyzer 0 % (0-5); Platelet Count 241 K/mm3 (150-450); RBC Distribution Width CV 13.9 % (11.6-14.6); RBC Distribution Width SD 43.0 fl (35.1-43.9); Red Blood Count 5.22 M/mm3 (4.2-5.4); White Blood Count 7.0 K/mm3 (4.4-11.0)
[2025-04-15 16:48] LABS: D-Dimer Quantitative (DVT/PE) 0.27 FEU/ug/m (0.27-0.49)
[2025-04-15 17:52] LABS: AST(SGOT) 50 U/L (<=31); Alanine Aminotransfer ALT/SGPT 46 U/L (<=34); Albumin, Serum 4.7 g/dL (3.4-4.8); Alkaline Phosphatase 117 U/L (35-104); Anion Gap 14 (5-15); BUN 17 mg/dL (4-19); BUN/Creat Ratio 27.8 RATIO (10-20); Calcium,Total 9.6 mg/dL (7.6-11.0); Carbon Dioxide 20.4 mmol/L (21.0-32.0); Chloride 104 mmol/L (98-108); Globulin 2.4 g/dL (2.2-4.2); Glucose 135 mg/dL (70-99); Potassium 4.2 mmol/L (3.3-5.1); Pro- Brain NATRIURETIC PEPTIDE 45 pg/mL (<=900)
== END | disposition home or self-care (01) ==
LOC: VSLAB 13:42
PROVIDERS: PCP Nurse Practitioner Family; Visit Provider Nurse Practitioner Family
DX: R60.0 Localized edema (principal); M79.662 Pain in left lower leg
CPT/HCPCS: 36415; 80053; 83880; 84443; 85025; 85379

== ENCOUNTER → 2025-05-02 | Outpatient (CLI) | payer MEDICARE, SELFPAY ==
--- NOTE | 2025-05-02 12:54 | VDLE_ITS ---
Reason For Study Reason For Study: Bilateral leg pain RIGHT LEFT GSV is normal. GSV is normal. CFV is compressible, spontaneous, phasic, competent CFV is compressible, spontaneous, phasic, competent, and demonstrates normal augmentation. and demonstrates normal augmentation. FV is compressible, spontaneous, phasic, competent FV is compressible, spontaneous, phasic, competent and demonstrates normal augmentation. and demonstrates normal augmentation. POP V is compressible, spontaneous, phasic, competent POP V is compressible, spontaneous, phasic, competent and demonstrates normal augmentation. and demonstrates normal augmentation. T/P Trunk is compressible. T/P Trunk is compressible. PTV is compressible. PTV is compressible. RT PerV is compressible. LT PerV is compressible. Procedure This is a venous duplex using B-mode, color flow and spectral Doppler. Exam performed in department. A preliminary report was called and/or faxed to Chris CLAYTON. VL/Venous Duplex US - Mines[facility] Extrem Interpretation Summary Deep veins of the lower extremities are bilaterally patent and compressible seg mentally. There is no evidence of deep vein thrombosis on either side. Valvular competence appears intact within the p roximal deep venous systems bilaterally. The great saphenous veins appear bilaterally patent and compressible segmentall y. Ordering Physician: Yenny Perez Referring Physician: Yenny Perez Performed By: Myrna Felder RVT
== END | disposition home or self-care (01) ==
LOC: CVS 12:52
PROVIDERS: PCP Nurse Practitioner Family; Referring Provider Nurse Practitioner Family; Visit Provider Nurse Practitioner Family
DX: M79.661 Pain in right lower leg (principal); M79.662 Pain in left lower leg; R60.0 Localized edema
CPT/HCPCS: 93970

== ENCOUNTER 2025-05-13 13:16 | Day surgery (SDC) | payer MEDICARE, SELFPAY ==
--- NOTE | 2025-05-08 13:23 | PAT.ANESEVAL ---
Pre-Assessment Diagnosis/Proposed Procedure Planned Operative Procedure(s): Colonoscopy,EGD Anesthesia History Anesthesia History - de ionizer operator: Anesthesia History - de ionizer operator Hx Hospitalization No 05/08/25 12:16 Any Problems With Anesthesia No 05/08/25 12:16 Cholinesterase deficiency No 05/08/25 12:16 You/Your Family Experience No 05/08/25 12:16 fever (hyperthermia) with Relationship Recent Exposure to Contagious Disease Does patient have nerve No 05/08/25 12:16 stimulator Patient instructed to have device shut off --Does patient have Pacemaker or ICD? When Was Last Pacemaker Check QUESTION #4 FULL TEXT: You/Your Family Experience fever (hyperthermia) with Anesthesia Last Oral Intake Last Oral intake: Last Oral Intake NPO since Meds taken in AM with sips of water? Meds patient instructed to take am of surgery PONV PONV - de ionizer operator: PONV - de ionizer operator Female Yes 05/08/25 12:16 HX of Motion Sickness Yes 05/08/25 12:16 HX of N/V After Surgery Yes 05/08/25 12:16 Non-Smoker Yes 05/08/25 12:16 Duration of Surgery greater No 05/08/25 12:16 than 60 minutes Number of Risk Factors 4 05/08/25 12:16 PONV Score Severe Risk 05/08/25 12:16 Height & Weight Height & Weight: Anesthesia: Height & Weight Height 4 ft 8 in 03/25/25 14:32 Respiratory Assessment Respiratory Assessment - de ionizer operator: Respiratory Tract Infection Hx - de ionizer operator Hx Respiratory Tract Infection No 05/08/25 12:16 STOP Sleep Apnea STOP Sleep Apnea - de ionizer operator: STOP Sleep Apnea - de ionizer operator Hx Hypertension Yes: ON MEDS 05/08/25 12:16 Hx Sleep Apnea Yes 05/08/25 12:16 CPAP No 05/08/25 12:16 BIPAP No 05/08/25 12:16 Do you snore loudly (louder than talking or can be heard Do you often feel tired/ fatigued/ sleepy during daytime? Has anyone observed you stop breathing during sleep? STOP Results Positive 05/08/25 12:16 QUESTION #5 FULL TEXT : Do you snore loudly (louder than talking or can be heard through closed doors)? 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 Specify any problems Hx of Preganancy in last 3 No 05/08/25 12:16 Months Nurse Filling Out Transfusion JZOLLINGE 05/08/25 12:16 & Questions: Date: 05/08/25 05/08/25 12:16 Time: 12:17 05/08/25 12:16 Patient unable to answer at this time (ie. confused, unrespo /Reproduction History /Reproductive History - de ionizer operator: /Reproductive Hx- de ionizer operator Hx Now No 05/08/25 12:16 Gestational Age (in weeks): EDC: Hx Hx Para Hx Section SAB No 05/08/25 12:16 [facility] Medical History (Updated 05/08/25 @ 12:16 by Robyn Freire) Edentulism, complete Dietary restriction Non-smoker Right wrist sprain Contusion of right elbow Right shoulder strain Contusion of left knee Contusion of right knee SOURAV (obstructive sleep apnea) Chronic bronchitis Diabetes GERD (gastroesophageal reflux disease) COPD (chronic obstructive pulmonary disease) Hypertension Migraines Home Medications ?Medication ?Instructions ?Recorded ?Last Taken ?Type ergocalciferol (vitamin D2) 1,250 1 cap PO FR SUPPLEMENT 01/21/20 01/13/23 History mcg (50,000 unit) capsule montelukast 10 mg tablet 10 mg PO DAILY@1700 ALLERGIES 01/21/20 01/19/23 History ascorbic acid (vitamin C) 500 mg 500 mg PO DAILY vitamin 09/07/22 01/19/23 History tablet (Vitamin C) cyclobenzaprine 5 mg tablet 5 mg PO QHS pain 01/20/23 01/19/23 History atorvastatin 20 mg tablet 20 mg PO QHS #30 tabs 01/21/23 Unknown Rx loratadine 10 mg tablet 10 mg PO DAILY@1700 PRN allergy 30 01/21/23 01/19/23 Rx days #0 tabs aspirin 81 mg tablet,delayed 81 mg PO DAILY 03/15/23 Unknown History release sucralfate 1 gram tablet 1 g PO BID #60 tabs 01/29/24 Unknown Rx fluticasone fur. 100 mcg-umeclid 1 ea inhalation QDAY 02/07/25 Unknown History 62.5 mcg-vilant 25 mcg inhalat.powder (Trelegy Ellipta) fluticasone propionate 50 2 spray intranasal QHS 02/07/25 Unknown History mcg/actuation nasal spray,suspension ipratropium 0.5 mg-albuterol 3 mg 3 ml inhalation Q8 PRN wheezing 02/07/25 Unknown History (2.5 mg base)/3 mL nebulization soln lisinopril 20 mg tablet 20 mg PO QDAY 02/07/25 Unknown History metformin 500 mg tablet,extended 500 mg PO QDAY 02/07/25 Unknown History release 24 hr metoprolol succinate 25 mg 25 mg PO QDAY 02/07/25 Unknown History tablet,extended release 24 hr multivitamin 1 tab PO QDAY 02/07/25 Unknown History nebulizers (Compact Compressor 02/07/25 Unknown History Nebulizer) triamcinolone acetonide 0.1 % 1 applic topical BID PRN itch 02/07/25 Unknown History topical cream famotidine 40 mg tablet 40 mg PO QHS #30 tabs 03/25/25 Unknown Rx omeprazole 40 mg capsule,delayed 40 mg PO QDAY #30 caps 03/25/25 Unknown Rx release ondansetron HCl 4 mg tablet 4 mg PO Q8H PRN nausea and 03/25/25 Unknown Rx vomiting #30 tabs Allergy/AdvReac Type Severity Reaction Status Date / Time latex Allergy Intermediate Other Verified 05/08/25 12:04 aspirin Allergy Vomiting Verified 05/08/25 12:04 Family History Father Diabetes Surgical History History of mandibular surgery H/O shoulder surgery H/O: hysterectomy Social History Smoking Status: Former smoker alcohol intake: former substance use type: does not use Audit: Pertinent Findings Pertinent Findings EKG Perinent findings: Normal sinus rhythm Right bundle branch block Possible Inferior infarct , age undetermined Abnormal ECG Echo (EF%) pertinent findings: Interpretation Summary The estimated ejection fraction is 55-60 %. Mild MR Heart catheterization pertinent findings: Normal coronary arteries Normal LV size, wall motion,and systolic function Recommendation Anesthesia Recommendation Anesthesia recommendation: OPTIMIZED for anesthesia
[2025-05-13] VITALS (9 sets, daily range): BP systolic 99–144; BP diastolic 67–106; PULSE 71–94; RESP 16–18; TEMP 36.6; O2SAT 96–97
--- NOTE | 2025-05-13 13:49 | PCM.HP.STD ---
HPI - General General Date of Admission: 05/13/25 Date of Service: 05/13/25 Chief Complaint: abdominal/chest/epigastric pain HPI Narrative BOBBY SHERIDAN, is a 64 F who presents from pulmonology for upper abdominal/chest/epigastric pain/burning with sensation of food sticking and morning nausea with intermittent heartburn; PPI started with resolution of emesis. No health insurance making EGD cost prohibitive. Continue protonix, start sucralfate. OV 11.6.23 PCP stopped Carafate. While taking Carafate she has a resolution of symptoms, with stop of Carafate she is now having nausea and upset stomach. PPI continues. Denies marijuana, cigarette and alcohol use. OV 4.29.24 pt reports daily N/V since her PCP took her off carafate. Pt reports that she occasionally has trouble swallowing. Pt reports that she has 3-4 formed bm per day. Pt continues taking pantoprazole.Continue pantoprazole 40 mg, ok to take it QAM to save costs, but can increase back to BID if needed. Add sucralfate bid for a month, GoodRx $15 at [facility]. f/u 2 mos 03.25.25 OV She reports being on pantoprazole daily and sucralfate but it's not working. She reports daily nausea, uses motion sickness medicine from OTC, and epigastric pain from heartburn. She denies emesis, difficulty swallowing, reflux, excess gas, constipation, diarrhea, hematochezia, and melena. She has difficulty chewing due to being edentulous. She states that she had seen a doctor at [facility] that recommended she have both an EGD and colonoscopy competed this year. [facility] Medical History Edentulism, complete Dietary restriction Non-smoker Right wrist sprain Contusion of right elbow Right shoulder strain Contusion of left knee Contusion of right knee SOURAV (obstructive sleep apnea) Chronic bronchitis Diabetes GERD (gastroesophageal reflux disease) COPD (chronic obstructive pulmonary disease) Hypertension Migraines Home Medications ?Medication ?Instructions ?Recorded ?Last Taken ?Type ergocalciferol (vitamin D2) 1,250 1 cap PO FR SUPPLEMENT 01/21/20 01/13/23 History mcg (50,000 unit) capsule montelukast 10 mg tablet 10 mg PO DAILY@1700 ALLERGIES 01/21/20 05/12/25 History ascorbic acid (vitamin C) 500 mg 500 mg PO DAILY vitamin 09/07/22 01/19/23 History tablet (Vitamin C) cyclobenzaprine 5 mg tablet 5 mg PO QHS pain 01/20/23 01/19/23 History atorvastatin 20 mg tablet 20 mg PO QHS #30 tabs 01/21/23 Unknown Rx loratadine 10 mg tablet 10 mg PO DAILY@1700 PRN allergy 30 01/21/23 05/12/25 Rx days #0 tabs aspirin 81 mg tablet,delayed 81 mg PO DAILY 03/15/23 Unknown History release sucralfate 1 gram tablet 1 g PO BID #60 tabs 01/29/24 05/12/25 Rx fluticasone fur. 100 mcg-umeclid 1 ea inhalation QDAY 02/07/25 Unknown History 62.5 mcg-vilant 25 mcg inhalat.powder (Trelegy Ellipta) fluticasone propionate 50 2 spray intranasal QHS 02/07/25 05/12/25 History mcg/actuation nasal spray,suspension ipratropium 0.5 mg-albuterol 3 mg 3 ml inhalation Q8 PRN wheezing 02/07/25 05/12/25 History (2.5 mg base)/3 mL nebulization soln lisinopril 20 mg tablet 20 mg PO QDAY 02/07/25 05/13/25 09:00 History metformin 500 mg tablet,extended 500 mg PO QDAY 02/07/25 05/12/25 History release 24 hr metoprolol succinate 25 mg 25 mg PO QDAY 02/07/25 05/12/25 History tablet,extended release 24 hr multivitamin 1 tab PO QDAY 02/07/25 05/12/25 History nebulizers (Compact Compressor 02/07/25 Unknown History Nebulizer) triamcinolone acetonide 0.1 % 1 applic topical BID PRN itch 02/07/25 Unknown History topical cream famotidine 40 mg tablet 40 mg PO QHS #30 tabs 03/25/25 Unknown Rx omeprazole 40 mg capsule,delayed 40 mg PO QDAY #30 caps 03/25/25 05/12/25 Rx release ondansetron HCl 4 mg tablet 4 mg PO Q8H PRN nausea and 03/25/25 05/12/25 Rx vomiting #30 tabs Allergy/AdvReac Type Severity Reaction Status Date / Time latex Allergy Intermediate Other Verified 05/09/25 13:03 aspirin Allergy Vomiting Verified 05/09/25 13:03 Family History Father Diabetes Surgical History History of mandibular surgery H/O shoulder surgery H/O: hysterectomy Social History Smoking Status: Former smoker how long ago did patient quit smokin second hand exposure: Yes alcohol intake: former substance use type: does not use ROS Constitutional Constitutional: Denies fatigue, fever(s), poor appetite, weight gain or weight loss Gastrointestinal Gastrointestinal: Denies belching, bloating, change in bowel habits, change in stool character, chewing difficulty, coffee ground emesis, constipation, cramping, diarrhea, dyspepsia, dysphagia, early satiety, excessive flatus, fecal incontinence, heartburn, hematemesis, hematochezia, hemorrhoids, loose stools, melena, nausea, odynophagia, rectal bleeding, tenesmus, vomiting or weight changes Vital Signs Vital Signs Vital Signs: 05/13/25 13:44 05/13/25 13:44 Temperature 98 F Temperature Source Temporal Pulse Rate 94 Respiratory Rate 16 Respiratory Pattern Normal Blood Pressure 144/95 H Blood Pressure Mean 111 Blood Pressure Source Monitor Blood Pressure Position Sitting Blood Pressure Location Right Arm Pulse Ox 96 Oxygen Delivery Method Room Air Weight Weight: 191 lb 12.835 oz Physical Exam Const alert, oriented x3, no apparent distress and healthy appearing General Appearance: cooperative GI normal to inspection, nondistended, normoactive bowel sounds, soft to palpation, non-tender and non-distended Percussion: normal to percussion Rectal Exam: deferred Assessment & Plan Assessment/Plan (1) Nausea: (2) Epigastric pain: (3) GERD (gastroesophageal reflux disease): QUALIFIERS: Esophagitis presence: without esophagitis Qualified Code(s): K21.9 - Gastro-esophageal reflux disease without esophagitis PLAN: Assessment and Plan Assessment and Plan (1) GERD (gastroesophageal reflux disease): Status: Chronic Qualifiers: Esophagitis presence: without esophagitis Qualified Code(s): K21.9 - Gastro-esophageal reflux disease without esophagitis (2) Epigastric pain: Status: Chronic (3) Nausea: Status: Acute Orders: Orders Gastric Emptying Study 03/25/25 K21.9 - Gastro-esophageal reflux disease without esophagitis, R10.13 - Epigastric pain, R11.0 - Nausea Medications: New omeprazole 40 mg PO QDAY 30 caps 2RF famotidine 40 mg PO QHS 30 tabs 2RF ondansetron HCl 4 mg PO Q8H PRN 30 tabs 0RF nausea and vomiting Discontinued pantoprazole Discontinued Reason: Order Changed 40 mg PO QAM 90 tabs 3RF Plan BOBBY KLINEHART, is a 64 F who presents to the office today for FU. She denies having emptying studies in the past. stop pantoprazole change to omeprazole 40mg PO daily add famotidine 40mg PO QHS ondansetron 4mg PO Q8h PRN nausea, after using new PPI+H2a for 1wk GET 1hr schedule bidirectional endoscopies office FU 2wks after endoscopies
[2025-05-13] MEDS: Lactated Ringers 1,000 ML 15 ML IV (13:50)
--- NOTE | 2025-05-13 13:59 | PCM.PRE.AN2 ---
ASA Classification* ASA Classification ASA Classification: 3 Assessment & Plan Anesthesia* Anesthesia Assessment Anesthesia Assessment: Discussed sedation and/or anesthesia options, risks, benefits, and alternatives with patient/parents/legal guardian/POA. Questions invited. The patient/parents/legal guardian/POA seems to understand and agrees to proceed with anesthesia plan. Reviewed the physical assessment, medical history, allergy history and patient home medications list prior to surgery/procedure/anesthetic and documented any changes. Performed airway and anesthesia risk assessments. Anesthesia Type Anesthesia Type: MAC History Source History Obtained from:: Patient and Chart Anesthesia Focused Assessment* Temperature: 98 F Pulse Rate: 94 Blood Pressure: 144/95 Respiratory Rate: 16 Pulse Ox: 96 Oxygen Delivery Method: Room Air Airway Assessment Mouth opens: >3 cm Mallampati Score: I Teeth Condition: Missing (Patient is edentulous.) Neck Range of motion (ROM): Limited ROM (Slight Decrease) Labs Anesthesia Preop lab: CBC WBC 7.0 K/mm3 (4.4-11.0) 04/15/25 13:42 04/15/25 RBC 5.22 M/mm3 (4.2-5.4) 04/15/25 13:42 04/15/25 Hgb 14.7 g/dL (12.0-15.0) 04/15/25 13:42 04/15/25 Hct 44.4 % (37-47) 04/15/25 13:42 04/15/25 Plt Count 241 K/mm3 (150-450) 04/15/25 13:42 04/15/25 CHEMISTRY Potassium 4.2 mmol/L (3.3-5.1) 04/15/25 13:42 04/15/25 Sodium 138 mmol/L (133-145) 04/15/25 13:42 04/15/25 Magnesium 2.1 mg/dL (1.6-2.6) 01/20/23 14:47 01/20/23 Phosphorus 3.2 mg/dL (2.5-4.9) 01/20/23 14:47 01/20/23 BUN 17 mg/dL (4-19) 04/15/25 13:42 04/15/25 Creatinine 0.60 mg/dL (0.70-1.20) L 04/15/25 13:42 04/15/25 Glucose 135 mg/dL (70-99) H 04/15/25 13:42 04/15/25 POC Glucose 80 mg/dL (74-106) 09/08/22 10:59 09/08/22 TSH 2.550 uIU/mL (0.300-4.200) 04/15/25 13:42 04/15/25 COAG PT 13.1 SECONDS (11.7-14.9) 09/07/22 13:15 09/07/22 Pre-Assessment Diagnosis/Proposed Procedure Planned Operative Procedure(s): Colonoscopy,EGD Anesthesia History 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 When Was Last Pacemaker Check QUESTION #4 FULL TEXT: You/Your Family Experience fever (hyperthermia) with Anesthesia Last Oral Intake Last Oral intake: Last Oral Intake NPO since Meds taken in AM with sips of Yes 05/13/25 13:44 water? Meds patient instructed to 0900 lisinopril 05/13/25 13:44 take am of surgery Any additional information?: Yes NPO since: 10:30 (Patient finished prep at 10:30 AM) Meds taken in AM with sips of water?: Yes PONV PONV - motion study technician: PONV - motion study technician Female Yes 05/08/25 12:16 HX of Motion Sickness Yes 05/08/25 12:16 HX of N/V After Surgery Yes 05/08/25 12:16 Non-Smoker Yes 05/08/25 12:16 Duration of Surgery greater No 05/08/25 12:16 than 60 minutes Number of Risk Factors 4 05/08/25 12:16 PONV Score Severe Risk 05/08/25 12:16 Height & Weight Height & Weight: Anesthesia: Height & Weight Height 4 ft 8 in 05/09/25 09:50 Weight: 87 kg 05/13/25 13:44 Respiratory Assessment Respiratory Assessment - motion study technician: Respiratory Tract Infection Hx - motion study technician Hx Respiratory Tract Infection No 05/08/25 12:16 STOP Sleep Apnea STOP Sleep Apnea - motion study technician: STOP Sleep Apnea - motion study technician Hx Hypertension Yes: ON MEDS 05/08/25 12:16 Hx Sleep Apnea Yes 05/08/25 12:16 CPAP No 05/08/25 12:16 BIPAP No 05/08/25 12:16 Do you snore loudly (louder than talking or can be heard Do you often feel tired/ fatigued/ sleepy during daytime? Has anyone observed you stop breathing during sleep? STOP Results Positive 05/08/25 12:16 QUESTION #5 FULL TEXT : Do you snore loudly (louder than talking or can be heard through closed doors)? 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 Specify any problems Hx of Preganancy in last 3 No 05/08/25 12:16 Months Nurse Filling Out Transfusion BlaineZOZARINA 05/08/25 12:16 & Questions: Date: 05/08/25 05/08/25 12:16 Time: 12:17 05/08/25 12:16 Patient unable to answer at this time (ie. confused, unrespo /Reproduction History /Reproductive History - motion study technician: /Reproductive Hx- motion study technician Hx Now No 05/08/25 12:16 Gestational Age (in weeks): EDC: Hx Hx Para Hx Section SAB No 05/08/25 12:16 Active Medications Active Medications: Current Medications Generic Name Dose Route Start Last Admin Trade Name Freq PRN Reason Stop Dose Admin Lactated Ringer's 1,000 mls @ 15 mls/hr 05/13/25 13:30 05/13/25 13:50 IV 15 mls/hr .Q48H DARY Administration PFSH Medical History Edentulism, complete Dietary restriction Non-smoker Right wrist sprain Contusion of right elbow Right shoulder strain Contusion of left knee Contusion of right knee SOURAV (obstructive sleep apnea) Chronic bronchitis Diabetes GERD (gastroesophageal reflux disease) COPD (chronic obstructive pulmonary disease) Hypertension Migraines Home Medications ?Medication ?Instructions ?Recorded ?Last Taken ?Type ergocalciferol (vitamin D2) 1,250 1 cap PO FR SUPPLEMENT 01/21/20 01/13/23 History mcg (50,000 unit) capsule montelukast 10 mg tablet 10 mg PO DAILY@1700 ALLERGIES 01/21/20 05/12/25 History ascorbic acid (vitamin C) 500 mg 500 mg PO DAILY vitamin 09/07/22 01/19/23 History tablet (Vitamin C) cyclobenzaprine 5 mg tablet 5 mg PO QHS pain 01/20/23 01/19/23 History atorvastatin 20 mg tablet 20 mg PO QHS #30 tabs 01/21/23 Unknown Rx loratadine 10 mg tablet 10 mg PO DAILY@1700 PRN allergy 30 01/21/23 05/12/25 Rx days #0 tabs aspirin 81 mg tablet,delayed 81 mg PO DAILY 03/15/23 Unknown History release sucralfate 1 gram tablet 1 g PO BID #60 tabs 01/29/24 05/12/25 Rx fluticasone fur. 100 mcg-umeclid 1 ea inhalation QDAY 02/07/25 Unknown History 62.5 mcg-vilant 25 mcg inhalat.powder (Trelegy Ellipta) fluticasone propionate 50 2 spray intranasal QHS 02/07/25 05/12/25 History mcg/actuation nasal spray,suspension ipratropium 0.5 mg-albuterol 3 mg 3 ml inhalation Q8 PRN wheezing 02/07/25 05/12/25 History (2.5 mg base)/3 mL nebulization soln lisinopril 20 mg tablet 20 mg PO QDAY 02/07/25 05/13/25 09:00 History metformin 500 mg tablet,extended 500 mg PO QDAY 02/07/25 05/12/25 History release 24 hr metoprolol succinate 25 mg 25 mg PO QDAY 02/07/25 05/12/25 History tablet,extended release 24 hr multivitamin 1 tab PO QDAY 02/07/25 05/12/25 History nebulizers (Compact Compressor 02/07/25 Unknown History Nebulizer) triamcinolone acetonide 0.1 % 1 applic topical BID PRN itch 02/07/25 Unknown History topical cream famotidine 40 mg tablet 40 mg PO QHS #30 tabs 03/25/25 Unknown Rx omeprazole 40 mg capsule,delayed 40 mg PO QDAY #30 caps 03/25/25 05/12/25 Rx release ondansetron HCl 4 mg tablet 4 mg PO Q8H PRN nausea and 03/25/25 05/12/25 Rx vomiting #30 tabs Allergy/AdvReac Type Severity Reaction Status Date / Time latex Allergy Intermediate Other Verified 05/09/25 13:03 aspirin Allergy Vomiting Verified 05/09/25 13:03 Family History Father Diabetes Surgical History History of mandibular surgery H/O shoulder surgery H/O: hysterectomy Social History Smoking Status: Former smoker how long ago did patient quit smokin second hand exposure: Yes alcohol intake: former substance use type: does not use Review of Systems (Anesthesia) ROS Narrative System reviewed and no additional complaints, except as documented.
--- NOTE | 2025-05-13 14:30 | EGD_PTH ---
PATIENT: BOBBY SHERIDAN LOC: EN U#:[id number] AGE/SX: 64/F ROOM: RE05/13/[address]: Dr. Bob Dueñas DO : 1960 BED: DIS: 05/13/2025 SPEC #: [id number] RECD: 05/14/25 07:34 STATUS: SILVINA REKirstin #: [id number] DORA: 05/13/25 14:[address]: Bob Dueñas DEPT: SURGICAL PATHOLOGY RECD BY: Elder Stratton ENTERED: 05/14/25 10:32 SP TYPE: EGD BIOPSY OT DR: Yenny Perez, [facility], MOLYBDENUM STEAMER OPERATOR-C Tissues: A - Duodenum, NOS B - Esophagus, NOS C - Ileum, NOS D - COLON BIOPSY Procedures: Surgery Specimen Level IV HEADER OPERATION: Colonoscopy, EGD, biopsy PRE-OP DIAGNOSIS: GERD, epigastric pain, nausea TISSUE SUBMITTED: A- Duodenum biopsy, B- Distal esophagus biopsy, C- Terminal ileum biopsy, D- Random colonic biopsy MICROSCOPIC DIAGNOSIS A. Duodenum, biopsy: - No specific pathologic change. - Negative for increased intraepithelial lymphocytes. B. Distal esophagus, biopsy: - Squamocolumnar mucosa negative for goblet cell metaplasia. C. Terminal ileum, biopsy: - Normal villous architecture with prominent mucosal lymphoid tissue, favor reactive - see note. Note: If there is clinical concern for a lymphoproliferative disorder, please contact the laboratory to request additional evaluation. D. Colon, random, biopsy: - No specific pathologic change. - The histologic features of microscopic colitis are not demonstrated. MICROSCOPIC DESCRIPTION Slides are reviewed. GROSS DESCRIPTION A. Received in fixative is one container labeled with the patient's name and designated Duodenum biopsy. The specimen consists of two irregular fragments of light friedman soft tissue that measure 0.2 and 0.4 cm. The specimen is totally submitted in one cassette. B. Received in fixative is one container labeled with the patient's name and designated Distal esophagus biopsy. The specimen consists of one irregular fragment of light friedman soft tissue that measures 0.4 cm. The specimen is totally submitted in one cassette. C. Received in fixative is one container labeled with the patient's name and designated Terminal ileum biopsy. The specimen consists of four irregular fragments of light friedman soft tissue that measure 0.1 to 0.5 cm. The specimen is totally submitted in one cassette. D. Received in fixative is one container labeled with the patient's name and designated Random colonic biopsy. The specimen consists of multiple irregular fragments of light friedman soft tissue that in aggregate measure 1.9 x 0.6 x 0.1 cm. The specimen is totally submitted in one cassette. [place] 05/14/2025 CPT:38781n6
--- NOTE | 2025-05-13 14:37 | PCM.POST.ANE ---
Anesthesia: Postop Eval I Current Vital Signs Temperature: 97.8 F Pulse Rate: 77 Blood Pressure: 104/72 Respiratory Rate: 18 Pulse Ox: 97 Oxygen Delivery Method: Room Air Assessment Airway patent: Yes Spontaneous unlabored respirations: Yes Mental status: Asleep nausea: No Vomiting: No Anesthesia Complication: No Fluid Hydration Crystalloid volume administer (ml): 600 Total IV fluid infused: 600 Progress Note Anesthesia document: Postop Eval 1 completed: Yes
--- NOTE | 2025-05-13 14:41 | OP.PROVAT_ITS ---
05/13/2025 Yenny Perez [facility], Senior Bookkeeper-c Re : Upper GI endoscopy procedure for Brandi Sauceda Dear Chris This procedure was performed on Tuesday, May 13, 2025. My impressions and recommendations are as follows: Impressions : - Abnormal esophageal motility. - Medium-sized hiatal hernia. - LA Grade A reflux esophagitis with no bleeding. Biopsied. - No gross lesions in the entire stomach. - Erythematous duodenopathy. Biopsied. Recommendations : - Discharge patient to home. - Resume previous diet. - Continue present medications. - Await pathology results. My findings are described in the full procedure note, which is enclosed. If I can be of further assistance, please feel free to contact me at . Sincerely, Bob Dueñas, 05/13/2025 2:40:43 PM This report has been signed electronically.
--- NOTE | 2025-05-13 14:41 | OP.EGD_ITS ---
Patient Name: Brandi Sauceda Procedure Date: 05/13/2025 1:58 PM Date of : 1960 Age: 64 Procedure: Upper GI endoscopy Indications: Epigastric abdominal pain, Functional Dyspepsia, Dysphagia, Heartburn, Failure to respond to medical treatment Providers: Bob Dueñas DO Referring MD: Yenny Perez [facility], Track Moving Machine Operator-c Medicines: Monitored Anesthesia Care Patient Profile: This is a 64 year old female. Refer to note in patient chart for documentation of history and physical. Patient has symptoms. Complications: No immediate complications. Procedure: Pre-Anesthesia Assessment: - Prior to the procedure, a History and Physical was performed, and patient medications and allergies were reviewed. The patient is competent. The risks and benefits of the procedure and the sedation options and risks were discussed with the patient. All questions were answered and informed consent was obtained. Patient identification and proposed procedure were verified by the physician in the pre-procedure area. Mental Status Examination: alert and oriented. Airway Examination: normal oropharyngeal airway and neck mobility. Respiratory Examination: clear to auscultation. CV Examination: normal. Prophylactic Antibiotics: The patient does not require prophylactic antibiotics. Prior Anticoagulants: The patient has taken no anticoagulant or antiplatelet agents. ASA Grade Assessment: II - A patient with mild systemic disease. After reviewing the risks and benefits, the patient was deemed in satisfactory condition to undergo the procedure. The anesthesia plan was to use monitored anesthesia care (MAC). Immediately prior to administration of medications, the patient was re-assessed for adequacy to receive sedatives. The heart rate, respiratory rate, oxygen saturations, blood pressure, adequacy of pulmonary ventilation, and response to care were monitored throughout the procedure. The physical status of the patient was re-assessed after the procedure. After obtaining informed consent, the endoscope was passed under direct vision. Throughout the procedure, the patient's blood pressure, pulse, and oxygen saturations were monitored continuously. The Colonoscope was introduced through the mouth, and advanced to the third part of the duodenum. Small bowel enteroscopy was deemed necessary. The upper GI endoscopy was accomplished without difficulty. The patient tolerated the procedure well. Scope In: 2:13:32 PM Scope Out: 2:16:46 PM Total Procedure Duration Time 0 hours 3 minutes 14 seconds Findings: Abnormal motility was noted in the esophagus. The cricopharyngeus was abnormal. There are extra peristaltic waves in the esophageal body. The distal esophagus/lower esophageal sphincter is spastic, but gives up passage to the endoscope. A medium-sized hiatal hernia was present. LA Grade A (one or more mucosal breaks less than 5 mm, not extending between tops of 2 mucosal folds) esophagitis with no bleeding was found 37 to 39 cm from the incisors. Biopsies were taken with a cold forceps for histology. Verification of patient identification for the specimen was done. Estimated blood loss was minimal. No gross lesions were noted in the entire examined stomach. Patchy mildly erythematous mucosa without active bleeding and with no stigmata of bleeding was found in the entire duodenum. Biopsies were taken with a cold forceps for histology. Verification of patient identification for the specimen was done. Estimated blood loss was minimal. Impression: - Abnormal esophageal motility. - Medium-sized hiatal hernia. - LA Grade A reflux esophagitis with no bleeding. Biopsied. - No gross lesions in the entire stomach. - Erythematous duodenopathy. Biopsied. Recommendation: - Discharge patient to home. - Resume previous diet. - Continue present medications. - Await pathology results. Procedure Code(s): --- Professional --- 94223, Small intestinal endoscopy, enteroscopy beyond second portion of duodenum, not including ileum; with biopsy, single or multiple CPT copyright 2021 [employer]. All rights reserved. The codes documented in this report are preliminary and upon curtain worker review may be revised to meet current compliance requirements. Bob Dueñas DO 05/13/2025 2:40:43 PM This report has been signed electronically. Number of Addenda: 0 Note Initiated On: 05/13/2025 1:58 PM
--- NOTE | 2025-05-13 14:45 | OP.COLON_ITS ---
Patient Name: Brandi Sauceda Procedure Date: 05/13/2025 2:16 PM Date of : 1960 Age: 64 Procedure: Colonoscopy Indications: Abdominal pain in the left lower quadrant, Clinically significant diarrhea of unexplained origin Providers: Bob Dueñas DO Referring MD: Yenny Perez [facility], [facility] Medicines: Monitored Anesthesia Care Patient Profile: This is a 64 year old female. Refer to note in patient chart for documentation of history and physical. Patient has symptoms. Last Colonoscopy: several years ago. Complications: No immediate complications. Procedure: Pre-Anesthesia Assessment: - Prior to the procedure, a History and Physical was performed, and patient medications and allergies were reviewed. The patient is competent. The risks and benefits of the procedure and the sedation options and risks were discussed with the patient. All questions were answered and informed consent was obtained. Patient identification and proposed procedure were verified by the physician in the pre-procedure area. Mental Status Examination: alert and oriented. Airway Examination: normal oropharyngeal airway and neck mobility. Respiratory Examination: clear to auscultation. CV Examination: normal. Prophylactic Antibiotics: The patient does not require prophylactic antibiotics. Prior Anticoagulants: The patient has taken no anticoagulant or antiplatelet agents. ASA Grade Assessment: II - A patient with mild systemic disease. After reviewing the risks and benefits, the patient was deemed in satisfactory condition to undergo the procedure. The anesthesia plan was to use monitored anesthesia care (MAC). Immediately prior to administration of medications, the patient was re-assessed for adequacy to receive sedatives. The heart rate, respiratory rate, oxygen saturations, blood pressure, adequacy of pulmonary ventilation, and response to care were monitored throughout the procedure. The physical status of the patient was re-assessed after the procedure. After I obtained informed consent, the scope was passed under direct vision. Throughout the procedure, the patient's blood pressure, pulse, and oxygen saturations were monitored continuously. The Colonoscope was introduced through the anus and advanced to the terminal ileum. The colonoscopy was performed without difficulty. The patient tolerated the procedure well. The quality of the bowel preparation was adequate. The terminal ileum, ileocecal valve, appendiceal orifice, and rectum were photographed. Scope In: 2:17:55 PM Scope Withdrawal Time 0 hours 7 minutes 25 seconds Scope Out: 2:28:07 PM Total Procedure Duration Time 0 hours 10 minutes 12 seconds Findings: The perianal and digital rectal examinations were normal. Multiple small and large-mouthed diverticula were found in the recto-sigmoid colon, sigmoid colon and hepatic flexure. An area of mildly congested mucosa was found in the entire colon. Biopsies were taken with a cold forceps for histology. Verification of patient identification for the specimen was done. Estimated blood loss was minimal. A patchy area of the terminal ileum was congested. Biopsies were taken with a cold forceps for histology. Verification of patient identification for the specimen was done. Estimated blood loss was minimal. Impression: - Diverticulosis in the recto-sigmoid colon, in the sigmoid colon and at the hepatic flexure. - Congested mucosa in the entire examined colon. Biopsied. - Congested mucosa in the terminal ileum. Biopsied. Recommendation: - Discharge patient to home. - Resume previous diet. - Continue present medications. - Await pathology results. - Repeat colonoscopy in 5 years for surveillance. Procedure Code(s): --- Professional --- 33870, Colonoscopy, flexible; with biopsy, single or multiple CPT copyright 2021 [employer]. All rights reserved. The codes documented in this report are preliminary and upon bacteriology professor review may be revised to meet current compliance requirements. Bob Dueñas DO 05/13/2025 2:44:52 PM This report has been signed electronically. Number of Addenda: 0 Note Initiated On: 05/13/2025 2:16 PM
--- NOTE | 2025-05-13 14:45 | OP.PROVAT_ITS ---
05/13/2025 Yenny Perez [facility] [place] Re : Colonoscopy procedure for Brandi Sauceda Dear Chris This procedure was performed on Tuesday, May 13, 2025. My impressions and recommendations are as follows: Impressions : - Diverticulosis in the recto-sigmoid colon, in the sigmoid colon and at the hepatic flexure. - Congested mucosa in the entire examined colon. Biopsied. - Congested mucosa in the terminal ileum. Biopsied. Recommendations : - Discharge patient to home. - Resume previous diet. - Continue present medications. - Await pathology results. - Repeat colonoscopy in 5 years for surveillance. My findings are described in the full procedure note, which is enclosed. If I can be of further assistance, please feel free to contact me at . Sincerely, Bob Dueñas, 05/13/2025 2:44:52 PM This report has been signed electronically.
--- NOTE | 2025-05-13 15:20 | PCM.POSTANE2 ---
Anesthesia Postop Eval I Sum Postop Eval Completion status Anesthesia document: Postop Eval 1 completed: Yes Anesthesia Postop Eval I Summary Anesthesia Postop Eval I Summary: Anesthesia Postop Eval I: Assessment Summary Airway patent Yes 05/13/25 14:37 [email or web address] Spontaneous unlabored Yes 05/13/25 14:37 [email or web address] respirations Mental status Asleep 05/13/25 14:37 [email or web address] nausea No 05/13/25 14:37 [email or web address] Vomiting No 05/13/25 14:37 [email or web address] Anesthesia Postop Eval I: Fluid Summary Crystalloid volume administer 600 05/13/25 14:37 [email or web address] (ml) Colloids volume administered ( ml) Blood Product volume administered (ml) Total IV fluid infused 600 05/13/25 14:37 [email or web address] Anesthesia Postop Eval I: Summary Notes Anesthesia Complication No 05/13/25 14:37 [email or web address] Anesthesia Complication Comment: Post-operative progress note Anesthesia: Postop Eval II Evaluation Mental status: Awake and Calm Pain Level: 0 nausea: No Vomiting: No Complications Anesthesia Complication: No
== END 2025-05-13 15:23 | disposition home or self-care (01) ==
LOC: EN 13:21 → AC 13:23
PROVIDERS: PCP Nurse Practitioner Family; Referring Provider Nurse Practitioner Family; Visit Provider Internal Medicine Gastroenterology
PROC: 0DJD8ZZ Inspection of Lower Intestinal Tract, Via Natural or Artificial Opening Endoscopic (ICD-10-PCS; CPT 45378; principal; 2025-05-13 14:25)
DX: R10.13 Epigastric pain (principal); J44.9 Chronic obstructive pulmonary disease, unspecified; E11.9 Type 2 diabetes mellitus without complications; K21.00 Gastro-esophageal reflux disease with esophagitis, without bleeding; K57.30 Diverticulosis of large intestine without perforation or abscess without bleeding; Z87.891 Personal history of nicotine dependence; K44.9 Diaphragmatic hernia without obstruction or gangrene; I10 Essential (primary) hypertension; Z79.899 Other long term (current) drug therapy; Z79.84 Long term (current) use of oral hypoglycemic drugs
CPT/HCPCS: 45380; 44361; 82962; 88305; J2405

== ENCOUNTER 2025-07-16 17:42 | Emergency (ER) | payer MEDICARE, SELFPAY ==
[2025-07-16 17:43] VITALS: BP 142/90; PULSE 103; RESP 20; TEMP 37; O2SAT 99; BMI 39.6
--- OUTSIDE RECORDS SUMMARY | 2025-07-16 18:10 | XMS RPT_ITS | CCD ---
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 [place] [address] EGD Report MR#: [id number] Acct: [id number] Name: BRANDI SAUCEDA ASHLEY Rep #: [id number] : 1960 64 From: Bob Dueñas DO PCP: RONEY Reyes, PARKING METER ATTENDANT-C Status:[place] [facility] Name: Brandi Sauceda Procedure Date: 05/13/2025 1:58 PM Date of : 1960 Age: 64 Procedure: Upper GI endoscopy Indications: Epigastric abdominal pain, Functional Dyspepsia, Dysphagia, Heartburn, Failure to respond to medical treatment Providers: Bob Dueñas DO Referring MD: Yenny Kauffman [facility], Nursing Department Chairperson-c Medicines: Monitored Anesthesia Care Patient Profile: This is a 64 year old female. Refer to note in patient chart for documentation of history and physical. Patient has symptoms. Complications: No immediate complications. Procedure: Pre-Anesthesia Assessment: - Prior to the procedure, a History and Physical was performed, and patient medications and allergies were reviewed. The patient is competent. The risks and benefits of the procedure and the sedation options and risks were discussed with the patient. All questions were answered and informed consent was obtained. Patient identification and proposed procedure were verified by the physician in the pre-procedure area. Mental Status Examination: alert and oriented. Airway Examination: normal oropharyngeal airway and neck mobility. Respiratory Examination: clear to auscultation. CV Examination: normal. Prophylactic Antibiotics: The patient does not require prophylactic antibiotics. Prior Anticoagulants: The patient has taken no anticoagulant or antiplatelet agents. ASA Grade Assessment: II - A patient with mild systemic disease. After reviewing the risks and benefits, the patient was deemed in satisfactory condition to undergo the procedure. The anesthesia plan was to use monitored anesthesia care (MAC). Immediately prior to administration of medications, the patient was re-assessed for adequacy to receive sedatives. The heart rate, respiratory rate, oxygen saturations, blood pressure, adequacy of pulmonary ventilation, and response to care were monitored throughout the procedure. The physical status of the patient was re-assessed after the procedure. After obtaining informed consent, the endoscope was passed under direct vision. Throughout the procedure, the patient's blood pressure, pulse, and oxygen saturations were monitored continuously. The Colonoscope was introduced through the mouth, and advanced to the third part of the duodenum. Small bowel enteroscopy was deemed necessary. The upper GI endoscopy was accomplished without difficulty. The patient tolerated the procedure well. Scope In: 2:13:32 PM Scope Out: 2:16:46 PM Total Procedure Duration Time 0 hours 3 minutes 14 seconds Findings: Abnormal motility was noted in the esophagus. The cricopharyngeus was abnormal. There are extra peristaltic waves in the esophageal body. The distal esophagus/lower esophageal sphincter is spastic, but gives up passage to the endoscope. A medium-sized hiatal hernia was present. LA Grade A (one or more mucosal breaks less than 5 mm, not extending between tops of 2 mucosal folds) esophagitis with no bleeding was found 37 to 39 cm from the incisors. Biopsies were taken with a cold forceps for histology. Verification of patient identification for the specimen was done. Estimated blood loss was minimal. No gross lesions were noted in the entire examined stomach. Patchy mildly erythematous mucosa without active bleeding and with no stigmata of bleeding was found in the entire duodenum. Biopsies were taken with a cold forceps for histology. Verification of patient identification for the specimen was done. Estimated blood loss was minimal. Impression: - Abnormal esophageal motility. - Medium-sized hiatal hernia. - LA Grade A reflux esophagitis with no bleeding. Biopsied. - No gross lesions in the entire stomach. - Erythematous duodenopathy. Biopsied. Recommendation: - Discharge patient to home. - Resume previous diet. - Continue present medications. - Await pathology results. Procedure Code(s): --- Professional --- 56831, Small intestinal endoscopy, enteroscopy beyond second portion of duodenum, not including ileum; with biopsy, single or multiple CPT copyright 2021 [employer]. All rights reserved. The codes documented in this report are preliminary and upon braille duplicating machine operator review may be revised to meet current compliance requirements. Bob Dueñas DO 05/13/2025 2:40:43 PM This report has been signed electronically. Number of Addenda: 0 Note Initiated On: 05/13/2025 1:58 PM 05/13/25 1440 Date Bob Dueñas DO Cosigner Signature: Date (more content not included)... Normal [facility] deOrdered By: Bob Dueñas on 05-13-2025 Glucose [Mass/Vol] 103 mg/dL 74-106 [facility] Comment on above: MANAGEMENT OF PATIEN T CARE PER NURSING PROTOCOL MR/OPLarisa 05-13-2025 MR/OP.[facility] Medical Records Department [address] [place] [address] Provation Physician Letter MR#: [id number] Acct: [id number] Name: BRANDI SAUCEDA ASHLEY Rep #: [id number] : 1960 64 From: Bob Dueñas DO PCP: Yenny Kauffman Cecil, PARKING METER ATTENDANT-C Status:[place] [facility] 05/13/2025 Yenny Kauffman [facility], Nursing Department Chairperson-c Re : Colonoscopy procedure for Brandi Sauceda Dear Jamari This procedure was performed on Tuesday, May 13, 2025. My impressions and recommendations are as follows: Impressions : - Diverticulosis in the recto-sigmoid colon, in the sigmoid colon and at the hepatic flexure. - Congested mucosa in the entire examined colon. Biopsied. - Congested mucosa in the terminal ileum. Biopsied. Recommendations : - Discharge patient to home. - Resume previous diet. - Continue present medications. - Await pathology results. - Repeat colonoscopy in 5 years for surveillance. My findings are described in the full procedure note, which is enclosed. If I can be of further assistance, please feel free to contact me at . Sincerely, Bob Dueñas DO 05/13/2025 2:44:52 PM This report has been signed electronically. 05/13/25 1445 Date Bob Dueñas DO Cosigner Signature: Date (if indicated) CC: [facility] PARKING METER ATTENDANT-C Yenny Dueñas DO Date Dictated: 05/13/25 1416 Date Transcribed: Tool Repairer: BRI Signed [facility] MR/OP.[facility] Medical Records Department [address] [place] [address] Provation Physician Letter MR#: [id number] Acct: [id number] Name: BRANDI SAUCEDA ASHLEY Rep #: [id number] : 1960 64 From: Bob Dueñas DO PCP: RONEY Reyes, PARKING METER ATTENDANT-C Status:REG SDC 05/13/2025 Yenny Amanda, Nursing Department Chairperson-c Re : Upper GI endoscopy procedure for Brandi Sauceda Dear Jamari This procedure was performed on Tuesday, May 13, 2025. My impressions and recommendations are as follows: Impressions : - Abnormal esophageal motility. - Medium-sized hiatal hernia. - LA Grade A reflux esophagitis with no bleeding. Biopsied. - No gross lesions in the entire stomach. - Erythematous duodenopathy. Biopsied. Recommendations : - Discharge patient to home. - Resume previous diet. - Continue present medications. - Await pathology results. My findings are described in the full procedure note, which is enclosed. If I can be of further assistance, please feel free to contact me at . Sincerely, Bob Dueñas DO 05/13/2025 2:40:43 PM This report has been signed electronically. 05/13/25 1440 Date Bob Askew Signature: Date (if indicated) CC: RONEY PARKING METER ATTENDANT-C Yenny Dueñas DO Date Dictated: 05/13/25 1358 Date Transcribed: Tool Repairer: BRI Signed [facility] MR/POSTOP.[place] 05-13-2025 MR/POSTOP.[facility] Medical Records Department [address] [place] [address] Anesthesia Postop Eval I 05/13/25 1437 MR#: [id number] Acct: [id number] Name: BRANDI SAUCEDA Rep #: [id number] : 1960 64 From: Tevin Cisse PCP: RONEY Reyes, PARKING METER ATTENDANT-C Status:REG SDC Y Race: C Location: [place] [address] Anesthesia: Postop Eval I Current Vital Signs Temperature: 97.8 F Pulse Rate: 77 Blood Pressure: 104/72 Respiratory Rate: 18 Pulse Ox: 97 Oxygen Delivery Method: Room Air Assessment Airway patent: Yes Spontaneous unlabored respirations: Yes Mental status: Asleep nausea: No Vomiting: No Anesthesia Complication: No Fluid Hydration Crystalloid volume administer (ml): 600 Total IV fluid infused: 600 Progress Note Anesthesia document: Postop Eval 1 completed: Yes 05/13/25 1437 Date Tevin Samuels Signature: Date CC: Signed Normal [facility] MR/[id number] 05-13-2025 MR/POSTOPAN2 [facility] Medical Records Department [address] [place] [address] Anesthesia Postop Eval II 05/13/25 1520 MR#: [id number] Acct: [id number] Name: BRANDI SAUCEDA ASHLEY Rep #: [id number] : 1960 64 From: Wilma Durham CRNA PCP: RONEY Reyes, PARKING METER ATTENDANT-C Status:REG SDC Y Race: C Location: [place] [address] Anesthesia Postop Eval I Sum Postop Eval Completion status Anesthesia document: Postop Eval 1 completed: Yes Anesthesia Postop Eval I Summary Anesthesia Postop Eval I Summary: Anesthesia Postop Eval I: Assessment Summary Airway patent Yes 05/13/25 14:37 [email or web address] Spontaneous unlabored Yes 05/13/25 14:37 [email or web address] respirations Mental status Asleep 05/13/25 14:37 [email or web address] nausea No 05/13/25 14:37 [email or web address] Vomiting No 05/13/25 14:37 [email or web address] Anesthesia Postop Eval I: Fluid Summary Crystalloid volume administer 600 05/13/25 14:37 [email or web address] (ml) Colloids volume administered ( ml) Blood Product volume administered (ml) Total IV fluid infused 600 05/13/25 14:37 [email or web address] Anesthesia Postop Eval I: Summary Notes Anesthesia Complication No 05/13/25 14:37 [email or web address] Anesthesia Complication Comment: Post-operative progress note Anesthesia: Postop Eval II Evaluation Mental status: Awake and Calm Pain Level: 0 nausea: No Vomiting: No Complications Anesthesia Complication: No 05/13/25 1520 Date Wilma Samuels Signature: Date CC: Signed Normal [facility] Surgery Specimen Level Carlene 05-13-2025 Surgery Specimen Level IV ---- Patient Age/Sex Location Account Attending Physician ---- BRANDI SAUCEDA 64/F EN [id number] Bob Dueñas DO ---- Specimen: [id number] Received: 05/14/25 Status: SILVINA [place] Num: [id number] Spec Type: EGD BIOPSY Subm Dr: Bob Dueñas, HEADER OPERATION: Colonoscopy, EGD, biopsy PRE-OP DIAGNOSIS: GERD, epigastric pain, nausea TISSUE SUBMITTED: A- Duodenum biopsy, B- Distal esophagus biopsy, C- Terminal ileum biopsy, D- Random colonic biopsy ---- MICROSCOPIC DIAGNOSIS A. Duodenum, biopsy: - No specific pathologic change. - Negative for increased intraepithelial lymphocytes. B. Distal esophagus, biopsy: - Squamocolumnar mucosa negative for goblet cell metaplasia. C. Terminal ileum, biopsy: - Normal villous architecture with prominent mucosal lymphoid tissue, favor reactive - see note. Note: If there is clinical concern for a lymphoproliferative disorder, please contact the laboratory to request additional evaluation. D. Colon, random, biopsy: - No specific pathologic change. - The histologic features of microscopic colitis are not demonstrated. MICROSCOPIC DESCRIPTION Slides are reviewed. GROSS DESCRIPTION A. Received in fixative is one container labeled with the patient's name and designated Duodenum biopsy. The specimen consists of two irregular fragments of light friedman soft tissue that measure 0.2 and 0.4 cm. The specimen is totally submitted in one cassette. B. Received in fixative is one container labeled with the patient's name and designated Distal esophagus biopsy. The specimen consists of one irregular fragment of light friedman soft tissue that measures 0.4 cm. The specimen is totally submitted in one cassette. C. Received in fixative is one container labeled with the patient's name and designated Terminal ileum biopsy. The specimen consists of four irregular fragments of light friedman soft tissue that measure 0.1 to 0.5 cm. The specimen is totally submitted in one cassette. D. Received in fixative is one container labeled with the patient's name and designated Random colonic biopsy. The specimen consists of multiple irregular fragments of light friedman soft tissue that in aggregate measure 1.9 x 0.6 x 0.1 cm. The specimen is totally submitted in one cassette. ---- Patient Age/Sex Location Account Attending Physician ---- BRANDI SAUCEDA 64/F EN [id number] Bob Dueñas DO ---- [place] 05/14/2025 CPT:55493d9 ---- Patient Age/Sex Location Account Attending Physician ---- BRANDI SAUCEDA 64/F EN [id number] Bob Dueñas DO ---- Signed (signature on file) Dr. Inga Georges MD 05/19/25 1641 ---- Normal [facility] Comment on above: Performed By: #### P SUJOSE ####[facility] [id number] [place], [place], [address] Pulmonary Visit Reporton Pulmonary Visit Report [facility] [place] [address] [place] [address] OFFICE VISIT Date of Service: 05/09/25 MR#: [id number] Acct: [id number] Name: BRANDI SAUCEDA Rep #: [id number] : 1960 Provider: Dolores Hunt NP Age/Sex: 64/F Location: [facility] Status: Signed Assessment and Plan Assessment and Plan (1) Chronic bronchitis: Status: Chronic Qualifiers: Chronic bronchitis type: unspecified Qualified Code(s): J42 - Unspecified chronic bronchitis Plan: The PFT is not suggestive for COPD or asthma. Chronic bronchitis could still be present as patient is receiving benefit from Trelegy. I recommend that she continue with this inhaled therapy at this time and will reassess on follow up in 6 months. She is encouraged to obtain her influenza vaccine this fall. Notify this practice if there are worsening respiratory symptoms. The patient does not meet criteria for low-dose screening lung CT as she did quit smoking over 20 years ago. The patient should notify this practice if she has worsening respiratory symptoms. (2) SOURAV (obstructive sleep apnea): Status: Suspected Plan: There is no presence of sleep apnea identified on the home sleep study. I do believe that the patient's nighttime awakenings are related to GI symptoms. There is a plan to obtain testing and follow-up with GI and she is encouraged to continue to pursue this. If insomnia persists despite GI testing and recommendations then she should consider treatment. I have recommended that she consider trial of melatonin OTC. Continue to follow with PCP Plan Details Follow Up: 6 Months (LMR) HPI HPI Comments Details: Patient is a 64-year-old female who presents today to follow-up regarding COPD and suspected obstructive sleep apnea. She has not followed with this clinic since 2022, her PCP recommended follow-up at this time. She is ambulatory and currently on room air. The patient was recently seen in the ER on April 13, 2025 because she had her pill become lodged in her throat. Her did perform the Heimlich maneuver but did not dislodge the pill. The patient was told that she had a GI abrasion with it was given a GI cocktail. At last evaluation it was recommended that she undergo a home sleep study along with a PFT. She quit smoking over 20 years ago. still smokes. She has not had respiratory illness requiring oral prednisone or antibiotics since last visit. She did use Trelegy 100, and did not have side effects to this inhaled therapy such as hoarseness or sore throat. She feels like this inhaler has helped her with her respiratory symptoms. She reports that there was benefit in regards to releasing mucous from her chest. She also has available albuterol nebulized, for which she is using it once daily. She reports compliance with montelukast, loratadine. She is also using a nasal steroid spray with good benefit. Today she reports that wheeze is present along with a cough after her nebulizer. She reports that shortness of breath is present. She will occasionally awaken at night gasping for air coughing. She denies chest pain and chest tightness. She denies fever, chills, body aches. She is planning for EGD and colonoscopy next week. She quit smoking 23 years ago in 2001. She did experience secondhand smoke from her and in childhood. She has not tried melatonin. She reports that the night before the PFT she used albuterol. Documentation reviewed with patient today includes: PFT from March 21, 2025 shows grossly normal pulmonary function study. Unattended sleep study from February 25, 2025 shows hypersomnia. GAVINO 2.9. Intake Vital Signs 02/07/25 08:05 05/09/25 09:50 Height 4 ft 8 in 4 ft 8 in Weight: 193 lb BMI 43.2 BP 126/83 H Blood Pressure Location Rt brachial Position Sitting Respiration 20 H Pulse 95 Pulse Source Monitor Temp 97.3 F L Temperature Source Temporal Artery Pulse Oximetry (%) 96 Oxygen Delivery Method room air Intake Visit Reasons: 3 M FU Delinquent Tax Collection Assistant Required: No DME Vendor: n/a Accompanied by: Self Is patient in pain?: No Allergies latex Allergy (Intermediate, Verified 05/09/25 13:03) Other aspirin Allergy (Verified 05/09/25 13:03) Vomiting Medications ???Medication ???Instructions ???Recorded ???Confirmed ???Type ergocalciferol (vitamin D2) 1,250 1 cap PO FR SUPPLEMENT 01/21/20 0 05/09/25 History mcg (50,000 unit) capsule montelukast 10 mg tablet 10 mg PO DAILY@1700 ALLERGIES /10/2105/09/25 History ascorbic acid (vitamin C) 500 mg 500 mg PO DAILY vitamin 09/07/22 0 05/09/25 History tablet (Vitamin C) cyclobenzaprine 5 mg tablet 5 mg PO QHS pain 01/20/23 05/09/25 History atorvastatin 20 mg tablet 20 mg PO QHS #30 tabs 01/21/2305/26 Rx l (more content not included)... 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 When Was Last Pacemaker Check QUESTION #4 FULL TEXT: You/Your Family Experience fever (hyperthermia) with Anesthesia Last Oral Intake Last Oral intake: Last Oral Intake NPO since Meds taken in AM with sips of water? Meds patient instructed to take am of surgery PONV PONV - curb builder: PONV - curb builder Female Yes 05/08/25 12:16 HX of Motion Sickness Yes 05/08/25 12:16 HX of N/V After Surgery Yes 05/08/25 12:16 Non-Smoker Yes 05/08/25 12:16 Duration of Surgery greater No 05/08/25 12:16 than 60 minutes Number of Risk Factors 4 05/08/25 12:16 PONV Score Severe Risk 05/08/25 12:16 Height Weight Height Weight: Anesthesia: Height Weight Height 4 ft 8 in 03/25/25 14:32 Respiratory Assessment Respiratory Assessment - curb builder: Respiratory Tract Infection Hx - curb builder Hx Respiratory Tract Infection No 05/08/25 12:16 STOP Sleep Apnea STOP Sleep Apnea - curb builder: STOP Sleep Apnea - curb builder Hx Hypertension Yes: ON MEDS 05/08/25 12:16 Hx Sleep Apnea Yes 05/08/25 12:16 CPAP No 05/08/25 12:16 BIPAP No 05/08/25 12:16 Do you snore loudly (louder than talking or can be heard Do you often feel tired/ fatigued/ sleepy during daytime? Has anyone observed you stop breathing during sleep? STOP Results Positive 05/08/25 12:16 QUESTION #5 FULL TEXT : Do you snore loudly (louder than talking or can be heard through closed doors)? 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 Specify any problems Hx of Preganancy in last 3 No 05/08/25 12:16 Months Nurse Filling Out Transfusion CHARIS 05/08/25 12:16 Questions: Date: 05/08/25 05/08/25 12:16 Time: 12:17 05/08/25 12:16 Patient unable to answer at this time (ie. confused, unrespo /Reproduction History /Reproductive History - curb builder: /Reproductive Hx- curb builder Hx Now No 05/08/25 12:16 Gestational Age (in weeks): EDC: Hx Hx Para Hx Section SAB No 05/08/25 12:16 [facility] Medical History (Updated 05/08/25 @ 12:16 by Robyn Freire) Edentulism, complete Dietary restriction Non-smoker Right wrist sprain Contusion of right elbow Right shoulder strain Contusion of left knee Contusion of right knee SOURAV (obstructive sleep apnea) Chronic bronchitis Diabetes GERD (gastroesophageal reflux disease) COPD (chronic obstructive pulmonary disease) Hypertension Migraines Home Medications ???Medication ???Instructions ???Recorded ???Last Taken ???Type ergocalciferol (vitamin D2) 1,250 1 cap PO FR SUPPLEMENT 01/21/20 0 01/13/23 History mcg (50,000 unit) capsule montelukast 10 mg tablet 10 mg PO DAILY@1700 ALLERGIES 01/0101/19/23 History ascorbic acid (vitamin C) 500 mg 500 mg PO DAILY vitamin 09/07/22 0 01/19/23 History tablet (Vitamin C) cyclobenzaprine 5 mg tablet 5 mg PO QHS pain 01/20/23 01/19/23 History atorvast (more content not included)... Normal [facility] Venous Duplex US - [facility] 05-02-2025 Venous Duplex US - [facility] [address] [place] [address] Venous Duplex US - [facility] 05/02/25 1306 MR#: [id number] Acct: [id number] Name: BRANDI SAUCEDA Rep #: [id number] : 1960 64 From: Qasim Sanders MD Attending Dr: Yenny Kauffman, RONEY, PARKING METER ATTENDANT-C Status : REG CLI Ordering Dr: Yenny Kauffman PARKING METER ATTENDANT-C Date: 05/02 Location: [facility] Sex: F C Admitted: Reason For Study Reason For Study: Bilateral leg pain RIGHT LEFT GSV is normal. GSV is normal. CFV is compressible, spontaneous, phasic, competent CFV is compressible, spontaneous, phasic, competent, and demonstrates normal augmentation. and demonstrates normal augmentation. FV is compressible, spontaneous, phasic, competent FV is compressible, spontaneous, phasic, competent and demonstrates normal augmentation. and demonstrates normal augmentation. POP V is compressible, spontaneous, phasic, competent POP V is compressible, spontaneous, phasic, competent and demonstrates normal augmentation. and demonstrates normal augmentation. T/P Trunk is compressible. T/P Trunk is compressible. PTV is compressible. PTV is compressible. RT PerV is compressible. LT PerV is compressible. Procedure This is a venous duplex using B-mode, color flow and spectral Doppler. Exam performed in department. A preliminary report was called and/or faxed to Jamari CLAYTON. VL/Venous Duplex US - Minesh Extrem Interpretation Summary Deep veins of the lower extremities are bilaterally patent and compressible segmentally. There is no evidence of deep vein thrombosis on either side. Valvular competence appears intact within the proximal deep venous systems bilaterally. The great saphenous veins appear bilaterally patent and compressible segmentally. Ordering Physician: Yenny Kauffman Referring Physician: Yenny Kauffman Performed By: Myrna Felder T 05/02/255 Date Qasim Sanders MD CC: [facility] FORREST Kauffman Date Dictated: 05/02/25 130 Date Transcribed: 05/02/252334 Tool Repairer: Signed Normal [facility] Venous duplex ultrasound rep ortOrdered By: Qasim Sanders on 05-02-2025 US Vein [facility] [address] [place] [address] Venous Duplex US - Minesh Extrem 05/02/25 1306 MR#: [id number] Acct: [id number] Name: BRANDI SAUCEDA ASHLEY Rep #:[id number] : 1960 64 From: Qasim Sanders MD Attending Dr: RONEY Reyes, PARKING METER ATTENDANT-C Status: REG CLI Ordering Dr: Yenny Kauffman PARKING METER ATTENDANT-Cecil Date: 05/02/25 Location: [facility] Sex: F C Admitted: Reason For Study Reason For Study: Bilateral leg pain RIGHT LEFT GSV is normal. GSV is normal. CFV is compressible, spontaneous, phasic, competent CFV is compressible, spontaneous, phasic, competent, and demonstrates normal augmentation. and demonstrates normal augmentation. FV is compressible, spontaneous, phasic, competent FV is compressible, spontaneous, phasic, competent and demonstrates normal augmentation. and demonstrates normal augmentation. POP V is compressible, spontaneous, phasic, competent POP V is compressible, spontaneous, phasic, competent and demonstrates normal augmentation. and demonstrates normal augmentation. T/P Trunk is compressible. T/P Trunk is compressible. PTV is compressible. PTV is compressible. RT PerV is compressible. LT PerV is compressible. Procedure This is a venous duplex using B-mode, color flow and spectral Doppler. Exam performed in department. A preliminary report was called and/or faxed to Jamari CLAYTON. VL/Venous Duplex US - Minesh Extrem Interpretation Summary Deep veins of the lower extremities are bilaterally patent and compressible segmentally. There is no evidence of deep vein thrombosis on either side. Valvular competence appears intact within the proximal deep venous systems bilaterally. The great saphenous veins appear bilaterally patent and compressible segmentally. Ordering Physician: Yenny Kauffman Referring Physician: Yenny Kauffman Performed By: Myrna Felder T 05/02/25 2824 Date _ Qasim Sanders MD CC: [facility] Kauffman ~ Date Dictated: 05/02/25 1306 Date Transcribed: 05/02/252334 Tool Repairer: Signed [facility] Other Absolute lymphocyte countOrd ered By: VSCecil Kauffman on 04-15-2025 Lymphocytes Auto (Unsp spec) [#/Vol] 2.19 10*3/uL 0.83-4.51 [facility] Absolute neutrophil countOrd ered By: [facility] Yenny Kauffman on 04-15-2025 Neutrophils (Bld) [#/Vol] 4.1 10*3/uL 2.0-7.7 [facility] Anion gap in Serum or Plasma Ordered By[facility] on 04-15-2025 Anion gap [Moles/Vol] 14 mmol/L 02-13 [facility] Automated lymphocyte count a s percentage of total leukocytesOrdered By: [facility] Jamari on 04-15-2025 Lymphocytes/100 WBC Auto (Unsp spec) 31.5 % - [facility] BUN/creatinine ratioOrdered By: [facility] K[facility]ffman on 04-15-2025 Urea nitrogen/Creatinine [Mass ratio] 27.8 mg/mg High - [facility] Basophil percentageOrdered B y: [facility] on 04-15-2025 Basophils/100 WBC (Bld) 0.9 % 0-1 [facility] Bilirubin, totalOrdered By: [facility] Kauffman on 04-15-2025 Bilirubin [Mass/Vol] 0.57 mg/dL 0.00-1.30 [facility] CBC W/Diff, Automatedon 04-01 Absolute Lymph 2.19 X10 3/uL Normal 0.83-4.51 [facility] Comment on above: Performed By: #### L 501.9520, L503.7505, L300.8000, L100.0100, L500.4050 ####[facility] [address] [place], [address] Absolute Neut 4.1 X10 3/uL Normal 2.0-7.7 [facility] Comment on above: Performed By: #### L 501.9520, L503.7505, L300.8000, L100.0100, L500.4050 ####[facility] [address] [place], [address] Basophils/100 WBC (Bld) 0.9 % Normal 0-1 [facility] Comment on above: Performed By: #### L 501.9520, L503.7505, L300.8000, L100.0100, L500.4050 ####[facility] [address] [place], [address] Eosinophils/100 WBC (Bld) 3.2 % Normal 0-5 [facility] Comment on above: Performed By: #### L 501.9520, L503.7505, L300.8000, L100.0100, L500.4050 ####[facility] [address] [place], [address] Erythrocyte distribution width (RBC) [Ratio] 13.9 % Normal 11.6-14.6 [facility] Comment on above: Performed By: #### L 501.9520, L503.7505, L300.8000, L100.0100, L500.4050 ####[facility] [address] [place], [address] Hematocrit (Bld) [Volume fraction] 44.4 % Normal 37-47 [facility] Comment on above: Performed By: #### L 501.9520, L503.7505, L300.8000, L100.0100, L500.4050 ####[facility] [address] [place], [address] Hemoglobin (Bld) [Mass/Vol] 14.7 g/dL Normal 12.0-15.0 [facility] Comment on above: Performed By: #### L 501.9520, L503.7505, L300.8000, L100.0100, L500.4050 ####[facility] [address] [place], [address] IG% 0.300 Normal 0.0-0.9 [facility] Comment on above: Result Comment: IG% - Immature Granulocytes (promyelocytes, myelocytes and metamyelocytes) > 1% indicates that a LEFT SHIFT is Present. Performed By: #### L 501.9520, L503.7505, L300.8000, L100.0100, L500.4050 ####[facility] [address] [place], [address] Lymphocytes/100 WBC (Bld) 31.5 % Normal 19-41 [facility] Comment on above: Performed By: #### L 501.9520, L503.7505, L300.8000, L100.0100, L500.4050 ####[facility] [address] [place], [address] MCH (RBC) [Entitic mass] 28.2 pg Normal 27.0-32.0 [facility] Comment on above: Performed By: #### L 501.9520, L503.7505, L300.8000, L100.0100, L500.4050 ####[facility] [address] [place], [address] MCHC (RBC) [Mass/Vol] 33.1 g/dL Normal 32-36 [facility] Comment on above: Performed By: #### L 501.9520, L503.7505, L300.8000, L100.0100, L500.4050 ####[facility] [address] [place], [address] MCV (RBC) [Entitic vol] 85.1 fL Normal 81-99 [facility] Comment on above: Performed By: #### L 501.9520, L503.7505, L300.8000, L100.0100, L500.4050 ####[facility] [address] [place], [address] Monocytes/100 WBC (Bld) 5.9 % Normal 0-10 [facility] Comment on above: Performed By: #### L 501.9520, L503.7505, L300.8000, L100.0100, L500.4050 ####[facility] [address] [place], [address] Neutrophils/100 WBC (Bld) 58.2 % Normal 47-70 [facility] Comment on above: Performed By: #### L 501.9520, L503.7505, L300.8000, L100.0100, L500.4050 ####[facility] [address] [place], [address] Nucleated RBC (Bld) [#/Vol] 0 10*3/uL Normal 0-5 [facility] Comment on above: Performed By: #### L 501.9520, L503.7505, L300.8000, L100.0100, L500.4050 ####[facility] [address] [place], [address] Platelet mean volume (Bld) [Entitic vol] 10.6 fL Normal 6.2-12.0 [facility] Comment on above: Performed By: #### L 501.9520, L503.7505, L300.8000, L100.0100, L500.4050 ####[facility] [address] [place], [address] Platelets (Bld) [#/Vol] 241 10*3/uL Normal 150-450 [facility] Comment on above: Performed By: #### L 501.9520, L503.7505, L300.8000, L100.0100, L500.4050 ####[facility] [address] [place], [address] RBC (Bld) [#/Vol] 5.22 10*6/uL Normal 4.2-5.4 [facility] Comment on above: Performed By: #### L 501.9520, L503.7505, L300.8000, L100.0100, L500.4050 ####[facility] [address] [place], [address] RDW SD 43.0 fl Normal 35.1-43.9 [facility] Comment on above: Performed By: #### L 501.9520, L503.7505, L300.8000, L100.0100, L500.4050 ####[facility] [address] [place], [address] WBC (Bld) [#/Vol] 7.0 10*3/uL Normal 4.4-11.0 [facility] Comment on above: Performed By: #### L 501.9520, L503.7505, L300.8000, L100.0100, L500.4050 ####[facility] [address] [place], [address] Carbon dioxide, total [Moles /volume] in Central venous bloodOrdered By: Cecil Kauffman on 04-15-2025 CO2 [Moles/Vol] 20.4 mmol/L Low 21.0-32.0 [facility] Chloride assayOrdered By: Cecil Kauffman on 04-15-2025 Chloride [Moles/Vol] 104 mmol/L 98-108 [facility] Comprehensive Metabolic Prof ilon 04-15-2025 Albumin [Mass/Vol] 4.7 g/dL Normal 3.4-4.8 [facility] Comment on above: Performed By: #### L 501.9520, L503.7505, L300.8000, L100.0100, L500.4050 ####[facility] [address] [place], [address] Albumin/Globulin [Mass ratio] 1.9 {ratio} Normal 0.9-2.4 [facility] Comment on above: Performed By: #### L 501.9520, L503.7505, L300.8000, L100.0100, L500.4050 ####[facility] [address] [place], [address] ALK PHOS 117 U/L High 35-104 [facility] Comment on above: Performed By: #### L 501.9520, L503.7505, L300.8000, L100.0100, L500.4050 ####[facility] [address] [place], [address] ALT [Catalytic activity/Vol] 46 U/L High <=34 [facility] Comment on above: Performed By: #### L 501.9520, L503.7505, L300.8000, L100.0100, L500.4050 ####[facility] [address] [place], [address] AST [Catalytic activity/Vol] 50 U/L High <=31 [facility] Comment on above: Performed By: #### L 501.9520, L503.7505, L300.8000, L100.0100, L500.4050 ####[facility] [address] [place], [address] Bilirubin [Mass/Vol] 0.57 mg/dL Normal 0.00-1.30 [facility] Comment on above: Performed By: #### L 501.9520, L503.7505, L300.8000, L100.0100, L500.4050 ####[facility] [address] [place], [address] BUN/CRE 27.8 RATIO High 10-20 [facility] Comment on above: Performed By: #### L 501.9520, L503.7505, L300.8000, L100.0100, L500.4050 ####[facility] [address] [place], [address] Calcium [Mass/Vol] 9.6 mg/dL Normal 7.6-11.0 [facility] Comment on above: Performed By: #### L 501.9520, L503.7505, L300.8000, L100.0100, L500.4050 ####[facility] [address] [place], [address] Chloride [Moles/Vol] 104 mmol/L Normal 98-108 [facility] Comment on above: Performed By: #### L 501.9520, L503.7505, L300.8000, L100.0100, L500.4050 ####[facility] [address] [place], [address] CO2 [Moles/Vol] 20.4 mmol/L Low 21.0-32.0 [facility] Comment on above: Performed By: #### L 501.9520, L503.7505, L300.8000, L100.0100, L500.4050 ####[facility] [address] [place], [address] Creatinine [Mass/Vol] 0.60 mg/dL Low 0.70-1.20 [facility] Comment on above: Performed By: #### L 501.9520, L503.7505, L300.8000, L100.0100, L500.4050 ####[facility] [address] [place], [address] GAP 14 Normal 5-15 [facility] Comment on above: Performed By: #### L 501.9520, L503.7505, L300.8000, L100.0100, L500.4050 ####[facility] [address] [place], [address] GFR/1.73 sq M.predicted among non-blacks MDRD (S/P/Bld) [Vol rate/Area] 100 mL/min/{1.73_m2} Normal >60 [facility] Comment on above: Result Comment: mL/m in/1.73m2 CKD-EPI Creatinine Equation (2020) Performed By: #### L 501.9520, L503.7505, L300.8000, L100.0100, L500.4050 ####[facility] [address] [place], [address] Globulin (S) [Mass/Vol] 2.4 g/dL Normal 2.2-4.2 [facility] Comment on above: Performed By: #### L 501.9520, L503.7505, L300.8000, L100.0100, L500.4050 ####[facility] [address] [place], [address] Glucose [Mass/Vol] 135 mg/dL High 70-99 [facility] Comment on above: Performed By: #### L 501.9520, L503.7505, L300.8000, L100.0100, L500.4050 ####[facility] [address] [place], [address] Potassium [Moles/Vol] 4.2 mmol/L Normal 3.3-5.1 [facility] Comment on above: Performed By: #### L 501.9520, L503.7505, L300.8000, L100.0100, L500.4050 ####[facility] [address] [place], [address] Sodium [Moles/Vol] 138 mmol/L Normal 133-145 [facility] Comment on above: Performed By: #### L 501.9520, L503.7505, L300.8000, L100.0100, L500.4050 ####[facility] [address] [place], [address] T PROT 7.0 g/dL Normal 5.9-8.4 [facility] Comment on above: Performed By: #### L 501.9520, L503.7505, L300.8000, L100.0100, L500.4050 ####[facility] [address] [place], [place], [address] Urea nitrogen [Mass/Vol] 17 mg/dL Normal 4-19 [facility] Comment on above: Performed By: #### L 501.9520, L503.7505, L300.8000, L100.0100, L500.4050 ####[facility] [address] [place], [address] D-Dimer Quantitative (DVT/PE )on 04-15-2025 D-DIMER QUANT 0.27 FEU/ug/m Normal 0.27-0.49 [facility] Comment on above: Result Comment: NORM AL D-Dimer level (<0.50) indicates no DVT or PE. Performed By: #### L 501.9520, L503.7505, L300.8000, L100.0100, L500.4050 ####[facility] [address] [place], [place], [id number] Eosinophil percentageOrdered By: [facility] Yenny Kauffman on 04-15-2025 Eosinophils/100 WBC (Bld) 3.2 % 0-5 [facility] Erythrocyte distribution wid th ratioOrdered By: [facility] Yenny Kauffman on 04-15-2025 Erythrocyte distribution width (RBC) [Ratio] 13.9 % 11.6-14.6 [facility] Erythrocyte distribution wid th standard deviationOrdered By: [facility] Yenny Kauffman on 04-15-2025 Erythrocyte distribution width (RBC) [Ratio] 43.0 fl 35.1-43.9 [facility] Glomerular filtration rate ( GFR) estimation/1.73 sq m using serum, plasma, or whole bOrdered By: [facility] Yenny Kauffman on 04-15-2025 GFR/1.73 sq M.predicted among non-blacks MDRD (S/P/Bld) [Vol rate/Area] 100 mL/min/{1.73_m2} >60 [facility] Comment on above: mL/min/1.73m2 CKD-EP I Creatinine Equation (2020) Hematocrit Auto (Bld) [Volum e fraction]Ordered By: [facility] Yenny Kauffman on 04-15-2025 Hematocrit (Bld) [Volume fraction] 44.4 % 37-47 [facility] Hemoglobin measurementOrdere d By: [facility] Yenny Kauffman on 04-15-2025 Hemoglobin (Bld) [Mass/Vol] 14.7 g/dL 12.0-15.0 [facility] Immature granulocytes/100 WB C Auto (Bld)Ordered By: [facility] Yenny Kauffman on 04-15-2025 Immature granulocytes/100 WBC (Bld) 0.300 % 0.0-0.9 [facility] Comment on above: IG% - Immature Granu locytes (promyelocytes, myelocytes and metamyelocytes) > 1% indicates that a LEFT SHIFT is Present. L503.7505on 04-15-2025 Natriuretic peptide B (Bld) [Mass/Vol] 45 pg/mL Normal <=900 [facility] Comment on above: Result Comment: Hear t Failure Unlikely: < 300 pg/mL Heart Failure Likely < 50 Years: > 450 pg/mL 50-75 Years: > 900 pg/mL >75 Years: > 1800 pg/mL Performed By: #### L 501.9520, L503.7505, L300.8000, L100.0100, L500.4050 ####[facility] [address] [place], [place], [address] Laboratory - Chemistry and C hemistry - challengeOrdered By: [facility] Yenny Kauffman on 04-15-2025 AST [Catalytic activity/Vol] 50 U/L High <32 [facility] MCV (mean corpuscular volume ) determinationOrdered By: [facility] Yenny Kauffman on 04-15-2025 MCV (RBC) [Entitic vol] 85.1 fL 81-99 [facility] Mean corpuscular hemoglobin (MCH) determinationOrdered By: [facility] Yenny Kauffman on 04-15-2025 MCH (RBC) [Entitic mass] 28.2 pg 27.0-32.0 [facility] Mean corpuscular hemoglobin concentration (MCHC) determinationOrdered By: [facility] Yenny Kauffman on 04-15-2025 MCHC (RBC) [Mass/Vol] 33.1 g/dL 32-36 [facility] Mean platelet volume determi nationOrdered By: [facility] Yenny Kauffman on 04-15-2025 Platelet mean volume (Bld) [Entitic vol] 10.6 fL 6.2-12.0 [facility] Monocyte percentageOrdered B y: [facility] Yenny Kauffman on 04-15-2025 Monocytes/100 WBC (Bld) 5.9 % 0-10 [facility] Natriuretic peptide.B prohor destin N-Terminal [Mass/volume] in Serum or PlasmaOrdered By: [facility] Yenny Kauffman on 04-15-2025 Natriuretic peptide.B prohormone N-Terminal [Mass/Vol] 45 pg/mL <900 [facility] Comment on above: Heart Failure Unlike ly: < 300 pg/mLHeart Failure Likely< 50 Years: > 450 pg/mL50-75 Years: > 900 pg/mL>75 Years: > 1800 pg/mL Neutrophil percentageOrdered By: [facility] Yenny Kauffman on 04-15-2025 Neutrophils/100 WBC (Bld) 58.2 % 47-70 [facility] Nucleated red blood cell per centageOrdered By: [facility] Yenny Kauffman on 04-15-2025 Nucleated RBC/100 WBC (Bld) [Ratio] 0 % 0-5 [facility] Platelet countOrdered By: [facility] Yenny Kauffman on 04-15-2025 Platelets (Bld) [#/Vol] 241 10*3/uL 150-450 [facility] Potassium measurement (mass/ volume)Ordered By: [facility] Yenny Kauffman on 04-15-2025 Potassium (Unsp spec) [Mass/Vol] 4.2 mmol/L 3.3-5.1 [facility] RBC Auto (Bld) [#/Vol]Ordere d By: [facility] Yenny Kauffman on 04-15-2025 RBC (Bld) [#/Vol] 5.22 10*6/uL 4.2-5.4 [facility] Serum creatinine measurement (mass/volume)Ordered By: [facility] Yenny Kauffman on 04-15-2025 Creatinine [Mass/Vol] 0.60 mg/dL Low 0.70-1.20 [facility] Serum globulin measurementOr dered By: [facility] Yenny Kauffman on 04-15-2025 Globulin (S) [Mass/Vol] 2.4 g/dL 2.2-4.2 [facility] Serum glucose measurement (m ass/volume)Ordered By: [facility] Yenny Kauffman on 04-15-2025 Glucose [Mass/Vol] 135 mg/dL High 70-99 [facility] Serum or plasma alanine coto otransferase (ALT) measurementOrdered By: [facility] Yenny Kauffman on 04-15-2025 ALT [Catalytic activity/Vol] 46 U/L High <35 [facility] Serum or plasma albumin faizan urement (mass/volume)Ordered By: [facility] Yenny Kauffman on 04-15-2025 Albumin [Mass/Vol] 4.7 g/dL 3.4-4.8 [facility] Serum or plasma albumin/glob ulin mass ratioOrdered By: [facility] Yenny Kauffman on 04-15-2025 Albumin/Globulin [Mass ratio] 1.9 {ratio} 0.9-2.4 [facility] Serum or plasma alkaline hillary sphatase measurementOrdered By: [facility] Yenny Kauffman on 04-15-2025 ALP [Catalytic activity/Vol] 117 U/L High 35-104 [facility] Serum or plasma calcium faizan urement (mass/volume)Ordered By: [facility] Yenny Kauffman on 04-15-2025 Calcium [Mass/Vol] 9.6 mg/dL 7.6-11.0 [facility] Serum or plasma urea nitroge n measurement (mass/volume)Ordered By: [facility] Yenny Kauffman on 04-15-2025 Urea nitrogen [Mass/Vol] 17 mg/dL 4-19 [facility] Sodium levelOrdered By: [facility] Yenny Kauffman on 04-15-2025 Sodium [Moles/Vol] 138 mmol/L 133-145 [facility] TSH DL <= 0.005 mIU/L QnOrde red By: [facility] Yenny Kauffman on 04-15-2025 TSH Qn 2.550 uIU/mL 0.300-4.200 [facility] Thyroid Stim Hormone (TSH)on 04-15-2025 TSH 2.550 uIU/mL Normal 0.300-4.200 [facility] Comment on above: Performed By: #### L 501.9520, L503.7505, L300.8000, L100.0100, L500.4050 ####[facility] [address] [place], [address] Total proteinOrdered By: [facility] Yenny Kauffman on 04-15-2025 Protein [Mass/Vol] 7.0 g/dL 5.9-8.4 [facility] White blood cell (WBC) count Ordered By: [facility] Yenny Kauffman on 04-15-2025 WBC (Bld) [#/Vol] 7.0 10*3/uL 4.4-11.0 [facility] Emergency Department Summary on 04-13-2025 Emergency Department Summary [facility] Medical Records Department [address] [place] [address] Emergency Department Summary 04/13/25 MR#: [id number] Acct: [id number] Name: BRANDI SAUCEDA ASHLEY Rep #: [id number] : 1960 64 From: Juliane BURTON PCP: RONEY Reyes, PARKING METER ATTENDANT-C Status:DEP ER Location: ED HPI History of Present Illness Chief Complaint: Foreign Body Narrative Narrative: Patient presenting today due to concerns for a pill being lodged in her throat. She was her daily medications this morning and took multiple pills at 1 time and felt like 1 got lodged in her throat. Her then performed the Heimlich maneuver which did not improve her symptoms. She denies any associated vomiting, difficulty swallowing, shortness of breath, or coughing. She is tolerating her secretions. [facility] Medical History Right wrist sprain Contusion of right elbow Right shoulder strain Contusion of left knee Contusion of right knee SOURAV (obstructive sleep apnea) Chronic bronchitis Diabetes GERD (gastroesophageal reflux disease) COPD (chronic obstructive pulmonary disease) Hypertension Migraines Home Medications ???Medication ???Instructions ???Recorded ???Last Taken ???Type ergocalciferol (vitamin D2) 1,250 1 cap PO FR SUPPLEMENT 01/21/20 0 01/13/23 History mcg (50,000 unit) capsule montelukast 10 mg tablet 10 mg PO DAILY@1700 ALLERGIES /10/2101/19/23 History ascorbic acid (vitamin C) 500 mg 500 mg PO DAILY vitamin 09/07/22 0 01/19/23 History tablet (Vitamin C) cyclobenzaprine 5 mg tablet 5 mg PO QHS pain 01/20/23 01/19/23 History atorvastatin 20 mg tablet 20 mg PO QHS #30 tabs 01/21/23 Unk nown Rx loratadine 10 mg tablet 10 mg PO DAILY@1700 PRN allergy 30 01/21/23 01/19/23 Rx days #0 tabs aspirin 81 mg tablet,delayed 81 mg PO DAILY 03/15/23 Unknown Hi story release sucralfate 1 gram tablet 1 g PO BID #60 tabs 01/29/24 Unkno wn Rx fluticasone fur. 100 mcg-umeclid 1 ea inhalation QDAY 02/07/25 Unkn own History 62.5 mcg-vilant 25 mcg inhalat.powder (Trelegy Ellipta) fluticasone propionate 50 2 spray intranasal QHS 02/07/25 Un known History mcg/actuation nasal spray,suspension ipratropium 0.5 mg-albuterol 3 mg ml inhalation Q8 PRN 02/07/25 Unk nown History (2.5 mg base)/3 mL nebulization soln lisinopril 20 mg tablet 20 mg PO QDAY 02/07/25 Unknown His tory metformin 500 mg tablet,extended 500 mg PO QDAY 02/07/25 Unknown Hi story release 24 hr metoprolol succinate 25 mg 25 mg PO QDAY 02/07/25 Unknown His tory tablet,extended release 24 hr multivitamin 1 tab PO QDAY 02/07/25 Unknown His tory nebulizers (Compact Compressor 02/07/25 Unknown History Nebulizer) triamcinolone acetonide 0.1 % applic topical BID PRN itch Unknown History topical cream famotidine 40 mg tablet 40 mg PO QHS #30 tabs 03/25/25 Unk nown Rx omeprazole 40 mg capsule,delayed 40 mg PO QDAY #30 caps 03/25/25 Un known Rx release ondansetron HCl 4 mg tablet 4 mg PO Q8H PRN nausea and 06/24/2 5 Unknown Rx vomiting #30 tabs Allergy/AdvReac Type Severity Reaction Status Date / Time latex Allergy Intermediate Other Verified 04/13/25 11:58 aspirin Allergy Vomiting Verified 04/13/25 11:58 Family History Father Diabetes Surgical History History of mandibular surgery H/O shoulder surgery H/O: hysterectomy Social History Smoking Status: Former smoker alcohol intake: former substance use type: does not use ROS ROS ED Constitutional Constitutional ED: Denies chills or fever(s) Cardiovascular Cardiovascular: Denies chest pain Respiratory/Chest Respiratory/Chest: Denies dyspnea Gastrointestinal Gastrointestinal: Denies abdominal pain, nausea or vomiting Musculoskeletal Musculoskeletal: Denies arthralgias or myalgias Integumentary Denies rash Neurologic Neurologic: Denies weakness EXAM Physical Exam Const Vital Signs: 04/13/25 11:56 04/13/25 12:20 04/13/25 12:56 Temperature 98.4 F 97.9 F Temperature Source Oral Pulse Rate 93 75 Respiratory Rate 18 16 Respiratory Effort Normal Non-Labored Respiratory Pattern Normal Blood Pressure 142/88 H 144/96 H Blood Pressure Mean 106 112 Pulse Ox 97 97 Oxygen Delivery Method Room Air Positive well nourished, well developed and no apparent distress General Appearance ED: well developed HEENT Reports normocephalic and head/scalp atraumatic HEENT Narrative: Posterior pharynx clear, tolerating secretions, no drool (more content not included)... Normal [facility] Gastric Emptying Studyon Gastric Emptying Study [facility] Imaging Services [address] [place] [address] Gastric Emptying Study MR#: [id number] Acct: [id number] Name: BRANDI SAUCEDA ASHLEY Rep #: [id number] : 1960 F 64 From: Syed Langston PCP: RONEY Reyes, PARKING METER ATTENDANT-C Status: REG CLI Study: Gastric Emptying Study Date of Exam: 04/10/25 Exam# [id number] Ordering Dr: Jennie Gutierrez PROCEDURE: GASTRIC EMPTYING STUDY 04/10/2025 REASON FOR EXAM: FREQUENT NAUSEA TECHNIQUE: The patient ingested a semi solid meal of oatmeal. There was no vomiting postprandially. Anterior and posterior planar images of the upper abdomen were obtained for 60 minutes. Regions of interest were drawn, and a geometric mean was used to calculate a hhdj-doagafzr-fucsf. Medications taken in the past 24 hours [...] semi solid phase gastric emptying. Reading Location: [address] CC: FORREST Gutierrez; [facility] FORREST Kauffman Tool Repairer: Signed Normal [facility] Gastroenterology Visit Repor ton 03-25-2025 Gastroenterology Visit Report [facility] Gastroenterology [address] [place] [address] OFFICE VISIT Date of Service: 03/25/25 MR#: [id number] Acct: [id number] Name: BRANDI SAUCEDA ASHLEY Rep #: [id number] : 1960 Provider: FORREST resendiz Age/Sex: 64/F [place] [facility] Status: Signed Intake Vital Signs 02/07/25 08:05 [...] mg tablet 10 mg PO DAILY@1700 ALLERGIES 01/0103/21/25 History ascorbic acid (vitamin C) 500 mg [...] tablet 20 mg PO QDAY 02/07/25 03/21/25 Electric Imp story metformin 500 mg tablet,extended 500 mg [...] daily. Continues taking pantoprazole and sucralfate daily. [facility] Medical History Right wrist sprain Contusion of [...] the office today for FU. *BGI established 6 with referral from pulmonology for upper abdominal/chest/epigas tric pain/burning with sensation of food sticking and [...] bid for a month, GoodRx $15 at [facility]. f/u 2 mos 6.24.25 OV She reports being on pantoprazole daily and sucralfate but it's not working. She reports daily nausea, uses motion sickness medicine from OTC, and epigastric pain from heartburn. She denies emesis, d (more content not included)... Normal [facility] Breast imaging reportOrdered By: Fatou Deluca on 03-14-2025 Study report [facility] Imaging Services [address] [place] [address] SCRN MAMM (CAD)W/MARY BETH BILAT MR#: [id number] Acct: [id number] Name: BRANDI SAUCEDA Rep #: [id number] : 1960 F 64 From: Melissa Deluca MD PCP: Yenny Kauffman [facility], PARKING METER ATTENDANT-C Status: REG CLI Study:SCRN MAMM (CAD)W/MARY BETH BILAT Date of Exa m: 03/14/25 Exam# [id number] Ordering Dr: Yenny Kauffman [facility] PARKING METER ATTENDANT-C EXAM: SCRN MAMM (CAD)W/MARY BETH BILAT 03/14/2025 [...] be mailed to the patient. Reading Location: [id number] CC: [facility] PARKING METER ATTENDANT-C Yenny Castañeda Tool Repairer: Signed [facility] SCRN MAMM (CAD)W/MARY BETH BILATo n 03-14-2025 SCRN MAMM (CAD)W/MARY BETH BILAT [facility] Imaging Services [address] [place] [address] SCRN MAMM (CAD)W/MARY BETH BILAT MR#: [id number] Acct: [id number] Name: BRANDI SAUCEDA Rep #: [id number] : 1960 F 64 From: Fatou Deluca MD PCP: RONEY Reyes, PARKING METER ATTENDANT-Cecil Status: REG CLI Study: SCRN MAMM (CAD)W/MARY BETH BILAT Date of Exam: 03/02 12/24 Exam# [id number] Ordering Dr: Yenny Kauffman PARKING METER ATTENDANT-C EXAM: SCRN MAMM (CAD)W/MARY BETH BILAT 03/14/2025 [...] be mailed to the patient. Reading Location: [id number] CC: [facility] PARKING METER ATTENDANT-C Yenny Kauffman Tool Repairer: Signed Normal [facility] Pulmonary Visit Reporton Pulmonary Visit Report [facility] [place] [address] [place] [address] OFFICE VISIT Date of Service: 02/07/25 MR#: [id number] Acct: [id number] Name: BRANDI SAUCEDA Rep #: [id number] : 1960 Provider: Dolores Hunt NP Age/Sex: 64/F Location[place] [facility] [place] Status: Signed Assessment and Plan Assessment and Plan (1) Chronic bronchitis: Status: Chronic Qualifiers: Chronic bronchitis type: unspecified Qualified Code(s): J42 - Unspecified chronic bronchitis Plan: Suspect COPD, former 98-[id number]-[id number] smoker, quit smoking 22 years ago, verses [...] Reasons: Pt to follow up per PCP Delinquent Tax Collection Assistant Required: No DME Vendor: n/a Accompanied by: Self Is patient in pain?: No Allergies aspirin Allergy (Verified 02/07/25 13:54) Vomiting Medications ???Medication ???Instructions ???Recorded ???Confirmed ???Type ergocalciferol (vitamin D2) 1,250 1 cap PO FR SUPPLEMENT 01/21/20 0 02/07 (more content not included)... Normal [facility] Absolute lymphocyte countOrd ered By: [facility] on 01-14-2025 Lymphocytes Auto (Unsp spec) [#/Vol] 2.50 10*3/uL 0.83-4.51 [facility] Absolute neutrophil countOrd ered By: [facility] Yennyjuan Kauffman on 01-14-2025 Neutrophils (Bld) [#/Vol] 2.9 10*3/uL 2.0-7.7 [facility] Anion gap in Serum or Plasma Ordered By: [facility] Kauffman on 01-14-2025 Anion gap [Moles/Vol] 13 mmol/L 02-13 [facility] Automated lymphocyte count a s percentage of total leukocytesOrdered By: [facility] Yennyjuan Kauffman on 01-14-2025 Lymphocytes/100 WBC Auto (Unsp spec) 41.7 % High 19-41 [facility] BUN/creatinine ratioOrdered By: [facility] Kauff[facility] on 01-14-2025 Urea nitrogen/Creatinine [Mass ratio] 34.4 mg/mg High 10-20 [facility] Basophil percentageOrdered B y: [facility] Yenny Kauffman on 01-14-2025 Basophils/100 WBC (Bld) 1.2 % High 0-1 [facility] Bilirubin, totalOrdered By: [facility] Yenny Kauffman on 01-14-2025 Bilirubin [Mass/Vol] 0.61 mg/dL 0.00-1.30 [facility] CBC W/Diff, Automatedon 12-31 Absolute Lymph 2.50 X10 3/uL Normal 0.83-4.51 [facility] Comment on above: Performed By: #### L 500.4050, L100.0100, L501.9985 ####[facility] [address] [place], [address] Absolute Neut 2.9 X10 3/uL Normal 2.0-7.7 [facility] Comment on above: Performed By: #### L 500.4050, L100.0100, L501.9985 ####[facility] [address] [place], [address] Basophils/100 WBC (Bld) 1.2 % High 0-1 [facility] Comment on above: Performed By: #### L 500.4050, L100.0100, L501.9985 ####[facility] [address] [place], [address] Eosinophils/100 WBC (Bld) 1.5 % Normal 0-5 [facility] Comment on above: Performed By: #### L 500.4050, L100.0100, L501.9985 ####[facility] [address] [place], [address] Erythrocyte distribution width (RBC) [Ratio] 14.4 % Normal 11.6-14.6 [facility] Comment on above: Performed By: #### L 500.4050, L100.0100, L501.9985 ####[facility] [address] [place], [address] Hematocrit (Bld) [Volume fraction] 44.6 % Normal 37-47 [facility] Comment on above: Performed By: #### L 500.4050, L100.0100, L501.9985 ####[facility] [address] [place], [address] Hemoglobin (Bld) [Mass/Vol] 14.5 g/dL Normal 12.0-15.0 [facility] Comment on above: Performed By: #### L 500.4050, L100.0100, L501.9985 ####[facility] [address] [place], [address] IG% 0.300 Normal 0.0-0.9 [facility] Comment on above: Result Comment: IG% - Immature Granulocytes (promyelocytes, myelocytes and metamyelocytes) > 1% indicates that a LEFT SHIFT is Present. Performed By: #### L 500.4050, L100.0100, L501.9985 ####[facility] [address] [place], [address] Lymphocytes/100 WBC (Bld) 41.7 % High 19-41 [facility] Comment on above: Performed By: #### L 500.4050, L100.0100, L501.9985 ####[facility] [address] [place], [address] MCH (RBC) [Entitic mass] 27.7 pg Normal 27.0-32.0 [facility] Comment on above: Performed By: #### L 500.4050, L100.0100, L501.9985 ####[facility] [address] [place], [address] MCHC (RBC) [Mass/Vol] 32.5 g/dL Normal 32-36 [facility] Comment on above: Performed By: #### L 500.4050, L100.0100, L501.9985 ####[facility] [address] [place], [address] MCV (RBC) [Entitic vol] 85.1 fL Normal 81-99 [facility] Comment on above: Performed By: #### L 500.4050, L100.0100, L501.9985 ####[facility] [address] [place], [address] Monocytes/100 WBC (Bld) 6.3 % Normal 0-10 [facility] Comment on above: Performed By: #### L 500.4050, L100.0100, L501.9985 ####[facility] [address] [place], [address] Neutrophils/100 WBC (Bld) 49.0 % Normal 47-70 [facility] Comment on above: Performed By: #### L 500.4050, L100.0100, L501.9985 ####[facility] [address] [place], [address] Nucleated RBC (Bld) [#/Vol] 0 10*3/uL Normal 0-5 [facility] Comment on above: Performed By: #### L 500.4050, L100.0100, L501.9985 ####[facility] [address] [place], [address] Platelet mean volume (Bld) [Entitic vol] 10.3 fL Normal 6.2-12.0 [facility] Comment on above: Performed By: #### L 500.4050, L100.0100, L501.9985 ####[facility] [address] [place], [address] Platelets (Bld) [#/Vol] 224 10*3/uL Normal 150-450 [facility] Comment on above: Performed By: #### L 500.4050, L100.0100, L501.9985 ####[facility] [address] [place], [address] RBC (Bld) [#/Vol] 5.24 10*6/uL Normal 4.2-5.4 [facility] Comment on above: Performed By: #### L 500.4050, L100.0100, L501.9985 ####[facility] [address] [place], [address] RDW SD 44.2 fl High 35.1-43.9 [facility] Comment on above: Performed By: #### L 500.4050, L100.0100, L501.9985 ####[facility] [address] [place], [address] WBC (Bld) [#/Vol] 6.0 10*3/uL Normal 4.4-11.0 [facility] Comment on above: Performed By: #### L 500.4050, L100.0100, L501.9985 ####[facility] [address] [place], [address] Carbon dioxide, total [Moles /volume] in Central venous bloodOrdered By: [facility] Yenny Kauffman on 01-14-2025 CO2 [Moles/Vol] 23.8 mmol/L 21.0-32.0 [facility] Chloride assayOrdered By: [facility] Yenny Kauffman on 01-14-2025 Chloride [Moles/Vol] 103 mmol/L 98-108 [facility] Comprehensive Metabolic Prof ilon 01-14-2025 Albumin [Mass/Vol] 4.6 g/dL Normal 3.4-4.8 [facility] Comment on above: Performed By: #### L 500.4050, L100.0100, L501.9985 ####[facility] [address] [place], [address] Albumin/Globulin [Mass ratio] 1.8 {ratio} Normal 0.9-2.4 [facility] Comment on above: Performed By: #### L 500.4050, L100.0100, L501.9985 ####[facility] [address] [place], [address] ALK PHOS 120 U/L High 35-104 [facility] Comment on above: Performed By: #### L 500.4050, L100.0100, L501.9985 ####[facility] [address] [place], [address] ALT [Catalytic activity/Vol] 42 U/L High <=34 [facility] Comment on above: Performed By: #### L 500.4050, L100.0100, L501.9985 ####[facility] [address] [place], [address] AST [Catalytic activity/Vol] 37 U/L High <=31 [facility] Comment on above: Performed By: #### L 500.4050, L100.0100, L501.9985 ####[facility] [address] [place], [address] Bilirubin [Mass/Vol] 0.61 mg/dL Normal 0.00-1.30 [facility] Comment on above: Performed By: #### L 500.4050, L100.0100, L501.9985 ####[facility] [address] [place], [address] BUN/CRE 34.4 RATIO High 10-20 [facility] Comment on above: Performed By: #### L 500.4050, L100.0100, L501.9985 ####[facility] [address] [place], [address] Calcium [Mass/Vol] 9.9 mg/dL Normal 7.6-11.0 [facility] Comment on above: Performed By: #### L 500.4050, L100.0100, L501.9985 ####[facility] [address] [place], [address] Chloride [Moles/Vol] 103 mmol/L Normal 98-108 [facility] Comment on above: Performed By: #### L 500.4050, L100.0100, L501.9985 ####[facility] [address] [place], [address] CO2 [Moles/Vol] 23.8 mmol/L Normal 21.0-32.0 [facility] Comment on above: Performed By: #### L 500.4050, L100.0100, L501.9985 ####[facility] [address] [place], [address] Creatinine [Mass/Vol] 0.55 mg/dL Low 0.70-1.20 [facility] Comment on above: Performed By: #### L 500.4050, L100.0100, L501.9985 ####[facility] [address] [place], [address] GAP 13 Normal 5-15 [facility] Comment on above: Performed By: #### L 500.4050, L100.0100, L501.9985 ####[facility] [address] [place], [address] GFR/1.73 sq M.predicted among non-blacks MDRD (S/P/Bld) [Vol rate/Area] 102 mL/min/{1.73_m2} Normal >60 [facility] Comment on above: Result Comment: mL/m in/1.73m2 CKD-EPI Creatinine Equation (2020) Performed By: #### L 500.4050, L100.0100, L501.9985 ####[facility] [address] [place], [address] Globulin (S) [Mass/Vol] 2.6 g/dL Normal 2.2-4.2 [facility] Comment on above: Performed By: #### L 500.4050, L100.0100, L501.9985 ####[facility] [address] [place], [address] Glucose [Mass/Vol] 75 mg/dL Normal 70-99 [facility] Comment on above: Performed By: #### L 500.4050, L100.0100, L501.9985 ####[facility] [address] [place], [address] Potassium [Moles/Vol] 4.0 mmol/L Normal 3.3-5.1 [facility] Comment on above: Performed By: #### L 500.4050, L100.0100, L501.9985 ####[facility] [address] [place], [address] Sodium [Moles/Vol] 140 mmol/L Normal 133-145 [facility] Comment on above: Performed By: #### L 500.4050, L100.0100, L501.9985 ####[facility] [address] [place], [address] T PROT 7.2 g/dL Normal 5.9-8.4 [facility] Comment on above: Performed By: #### L 500.4050, L100.0100, L501.9985 ####[facility] [address] [place], [address] Urea nitrogen [Mass/Vol] 19 mg/dL Normal 4-19 [facility] Comment on above: Performed By: #### L 500.4050, L100.0100, L501.9985 ####[facility] [address] [place], [address] Eosinophil percentageOrdered By: [facility] Yenny Kauffman on 01-14-2025 Eosinophils/100 WBC (Bld) 1.5 % 0-5 [facility] Erythrocyte distribution wid th ratioOrdered By: [facility] Yenny Kauffman on 01-14-2025 Erythrocyte distribution width (RBC) [Ratio] 14.4 % 11.6-14.6 [facility] Erythrocyte distribution wid th standard deviationOrdered By: [facility] Yenny Kauffman on 01-14-2025 Erythrocyte distribution width (RBC) [Ratio] 44.2 fl High 35.1-43.9 [facility] Glomerular filtration rate ( GFR) estimation/1.73 sq m using serum, plasma, or whole bOrdered By: [facility] Yenny Kauffman on 01-14-2025 GFR/1.73 sq M.predicted among non-blacks MDRD (S/P/Bld) [Vol rate/Area] 102 mL/min/{1.73_m2} >60 [facility] Comment on above: mL/min/1.73m2 CKD-EP I Creatinine Equation (2020) Hematocrit Auto (Bld) [Volum e fraction]Ordered By: [facility] Yenny Kauffman on 01-14-2025 Hematocrit (Bld) [Volume fraction] 44.6 % 37-47 [facility] Hemoglobin A1con 01-14-2025 HbA1c (Bld) [Mass fraction] 6.4 % High <=5.6 [facility] Comment on above: Result Comment: Norm al < 5.7 % Prediabetic 5.7 - 6.4 % Diabetic >or= 6.5 % Please note range changes. Performed By: #### L 500.4050, L100.0100, L501.9985 ####[facility] [address] [place], [address] Hemoglobin A1c percentageOrd ered By: [facility] Yenny Kauffman on 01-14-2025 HbA1c (Bld) [Mass fraction] 6.4 % High <5.7 [facility] Comment on above: Normal < 5.7 % Predi abetic 5.7 - 6.4 % Diabetic >or= 6.5 % Please note range changes. Hemoglobin measurementOrdere d By: [facility] Yenny Kauffman on 01-14-2025 Hemoglobin (Bld) [Mass/Vol] 14.5 g/dL 12.0-15.0 [facility] Immature granulocytes/100 WB C Auto (Bld)Ordered By: [facility] Yenny Kauffman on 01-14-2025 Immature granulocytes/100 WBC (Bld) 0.300 % 0.0-0.9 [facility] Comment on above: IG% - Immature Granu locytes (promyelocytes, myelocytes and metamyelocytes) > 1% indicates that a LEFT SHIFT is Present. Laboratory - Chemistry and C hemistry - challengeOrdered By: [facility] Yenny Kauffman on 01-14-2025 AST [Catalytic activity/Vol] 37 U/L High <32 [facility] MCV (mean corpuscular volume ) determinationOrdered By: [facility] Yenny Kauffman on 01-14-2025 MCV (RBC) [Entitic vol] 85.1 fL 81-99 [facility] Mean corpuscular hemoglobin (MCH) determinationOrdered By: [facility] Yenny Kauffman on 01-14-2025 MCH (RBC) [Entitic mass] 27.7 pg 27.0-32.0 [facility] Mean corpuscular hemoglobin concentration (MCHC) determinationOrdered By: [facility] Yenny Kauffman on 01-14-2025 MCHC (RBC) [Mass/Vol] 32.5 g/dL 32-36 [facility] Mean platelet volume determi nationOrdered By: [facility] Yenny Kauffman on 01-14-2025 Platelet mean volume (Bld) [Entitic vol] 10.3 fL 6.2-12.0 [facility] Monocyte percentageOrdered B y: RONEY Kauffman on 01-14-2025 Monocytes/100 WBC (Bld) 6.3 % 0-10 [facility] Neutrophil percentageOrdered By: [facility] Yenny Kauffman on 01-14-2025 Neutrophils/100 WBC (Bld) 49.0 % 47-70 [facility] Nucleated red blood cell per centageOrdered By: [facility] Yenny Kauffman on 01-14-2025 Nucleated RBC/100 WBC (Bld) [Ratio] 0 % 0-5 [facility] Platelet countOrdered By: [facility] Yenny Kauffman on 01-14-2025 Platelets (Bld) [#/Vol] 224 10*3/uL 150-450 [facility] Potassium measurement (mass/ volume)Ordered By: [facility] Yenny Kauffman on 01-14-2025 Potassium (Unsp spec) [Mass/Vol] 4.0 mmol/L 3.3-5.1 [facility] RBC Auto (Bld) [#/Vol]Ordere d By: [facility] Yenny Kauffman on 01-14-2025 RBC (Bld) [#/Vol] 5.24 10*6/uL 4.2-5.4 [facility] Serum creatinine measurement (mass/volume)Ordered By: Cecil Kauffman on 01-14-2025 Creatinine [Mass/Vol] 0.55 mg/dL Low 0.70-1.20 [facility] Serum globulin measurementOr dered By: [facility] Yenny Kauffman on 01-14-2025 Globulin (S) [Mass/Vol] 2.6 g/dL 2.2-4.2 [facility] Serum glucose measurement (m ass/volume)Ordered By: [facility] Yenny Kauffman on 01-14-2025 Glucose [Mass/Vol] 75 mg/dL 70-99 [facility] Serum or plasma alanine coto otransferase (ALT) measurementOrdered By: [facility] Yenny Kauffman on 01-14-2025 ALT [Catalytic activity/Vol] 42 U/L High <35 [facility] Serum or plasma albumin faizan urement (mass/volume)Ordered By: [facility] Yenny Kauffman on 01-14-2025 Albumin [Mass/Vol] 4.6 g/dL 3.4-4.8 [facility] Serum or plasma albumin/glob ulin mass ratioOrdered By: [facility] Yenny Kauffman on 01-14-2025 Albumin/Globulin [Mass ratio] 1.8 {ratio} 0.9-2.4 [facility] Serum or plasma alkaline hillary sphatase measurementOrdered By: [facility] Yenny Kauffman on 01-14-2025 ALP [Catalytic activity/Vol] 120 U/L High 35-104 [facility] Serum or plasma calcium faizan urement (mass/volume)Ordered By: [facility] Yenny Kauffman on 01-14-2025 Calcium [Mass/Vol] 9.9 mg/dL 7.6-11.0 [facility] Serum or plasma urea nitroge n measurement (mass/volume)Ordered By: [facility] Yenny Kauffman 01-14-2025 Urea nitrogen [Mass/Vol] 19 mg/dL 4-19 [facility] Sodium levelOrdered By: [facility] Yenny Kauffman on 01-14-2025 Sodium [Moles/Vol] 140 mmol/L 133-145 [facility] Total proteinOrdered By: [facility] Yenny Kauffman on 01-14-2025 Protein [Mass/Vol] 7.2 g/dL 5.9-8.4 [facility] White blood cell (WBC) count Ordered By: [facility] Yenny Kauffman on 01-14-2025 WBC (Bld) [#/Vol] 6.0 10*3/uL 4.4-11.0 [facility] Urgent Care Visit Reporton 1 Urgent Care Visit Report [facility] [address], [address] [place] [address] OFFICE VISIT Date of Service: 07/03/24 MR#: [id number] Acct: [id number] Name: BRANDI SAUCEDA Rep #: [id number] : 1960 Provider: JOSEPHINE Solano Age/Sex: 64/F Location[email or web address] Status: Signed Intake Vital Signs 05/07/24 11:08 07/03/24 13:03 Height 4 ft 8 in BP 140/78 H Blood Pressure Location Lt brachial Position Sitting Respiration 16 Pulse 85 Pulse Source NIBP Temp 98.4 F Temp Source Temporal Pulse Oximetry (%) 97 Oxygen Delivery Method room air Intake Visit Reasons: 1 M FU/WENDYS Chief Complaint: WC f/u right shoulder Delinquent Tax Collection Assistant Required: No Is patient in pain?: No Allergies aspirin Allergy (Verified 07/03/24 13:03) Vomiting Is last menstrual period known: No Post menopausal: Yes Patient : No Have you fallen in the past year?: Yes [facility] Medical History (Updated 05/07/24 @ 12:02 by [...] or shoulder. No other associated symptoms or alleviating/aggravatin g factors. ROS Const Constitutional: No other (as [...] you fallen in the past year?: Yes 07/03/242 Date Luís Samuels Signature: Date (if applicable) CC: Normal [facility] HIGH RISK HUMAN PAPILLOMA SOLE (HPV), PCR FOR DETECTION AND GENOTYPINGon 07-01-2024 HPV 16 Ag Ql (Unsp spec) Not detected Normal Not detected [facility] Comment on above: Order Comment: Speci men Type: FLUID SPECIMENOrdering Facility: [facility] Address: [address] [place] [address], [place] [address] Performed By: #### L [id number], HPVHRT ####[facility] LABCLIA [id number] [place] [address] [place] ELISA HPV 18 Ag Ql (Unsp spec) Not detected Normal Not detected [facility] Comment on above: Order Comment: Speci men Type: FLUID SPECIMENOrdering Facility: [facility] Address: [address] [place] [address] Performed By: #### L [id number], HPVHRT ####[facility] LABIA [id number] [place] [address] [place] ELISA HPV 31+33+35+39+45+51+52+56 +58+59+66+68 DNA JIMMY+probe Ql (Cvx) Not detected Normal Not detected [facility] Comment on above: Order Comment: Speci men Type: FLUID SPECIMENOrdering Facility: [facility] Address: [address] [place] [address] Result Comment: High Risk HPV Other Type includes HPV types 31, 33, 35, 39, 45, 51, 52, 56, 58, 59, 66 and 68. Performed By: #### L [id number], HPVHRT ####[facility] LABIA [id number] [place] [address] [place] ELISA PAP TESTon 07-01-2024 ADEQUACY Normal [facility] Comment on above: Order Comment: Speci men Type: FLUID SPECIMENOrdering Facility: [facility] Address: [address] [place] [address] Result Comment: Sati sfactory for interpretation. Limited cellularity due to acellular background material Performed By: #### L [id number], HPVHRT ####[facility] LABIA [id number] [place] [address] [place] ELISA CASE REPORT Normal [facility] Comment on above: Order Comment: Speci men Type: FLUID SPECIMENOrdering Facility: [facility] Address: [address] [place] [address] Result Comment: Gyne cologic Cytology Report Case: [id number] Authorizing Provider: Yenny Kauffman NP Collected: 07/01/2024 11:30 AM Ordering Location: [facility] Received: 07/02/2024 12:50 PM [facility] First Screen: Devika, Livia, CT, ASCP Rescreen: Anila, Gabriel, CT, ASCP Specimen: Pap Test, ThinPrep, Vagina Performed By: #### L [id number], HPVHRT ####[facility] LABCLIA [id number] [place] [address] [place] ELISA CLINICAL HISTORY, CYTOLOGY, ALLERGIST/MD Post Menopausal Normal [facility] Comment on above: Order Comment: Speci men Type: FLUID SPECIMENOrdering Facility: [facility] Address: [address] [place] [address] Result Comment: Prev ious pap: 02/15/2023 (insufficient) Hysterectomy (subtotal) Performed By: #### L [id number], HPVHRT ####[facility] LABCLIA [id number] [place] [address] [place] ELISA FINAL PERFORMING LAB Normal [facility] Comment on above: Order Comment: Speci men Type: FLUID SPECIMENOrdering Facility: [facility] Address: [address] [place] [address] Result Comment: Tech nical component, first sampler screening performed at [facility], [address] [place], [place] [id number] CLIA# [id number] Diagnostic interpretation performed at [facility], [address] [facility] [address] CLIA# [id number] Rn Maternal Child: Luke Gilbert M.D. Performed By: #### L [id number], HPVHRT ####[facility] LABCLIA [id number] [place] [address] [place] HPV REFLEX Yes HPV Normal [facility] Comment on above: Order Comment: Speci men Type: FLUID SPECIMENOrdering Facility: [facility] Address: [address] [place] [address], [place] [address] Performed By: #### L [id number], HPVHRT ####[facility] LABCLIA [id number] [place] [address] [place] INTERPRETATION, CYTOLOGY, ALLERGIST/MD Normal [facility] Comment on above: Order Comment: Speci men Type: FLUID SPECIMENOrdering Facility: [facility] Address: [address] [place] [address], [place] [address] Result Comment: Nega tive for intraepithelial lesion or malignancy. Performed By: #### L [id number], HPVHRT ####[facility] LABCLIA [id number] [place] [address] [place] PAP DISCLAIMER COMMENT The Pap Smear is a screening test for cervical cancer. False negative results occur with all screening tests, emphasizing the need for rescreening at recommended intervals, and clinical correlation. Normal [facility] Comment on above: Order Comment: Speci men Type: FLUID SPECIMENOrdering Facility: [facility] Address: [address] [place] [address], [place] [address] Performed By: #### L [id number], HPVHRT ####[facility] LABCLIA [id number] [place] [address] [place] PAP JEWELRY DESIGNER COMMENT This specimen has be en analyzed by the ThinPrep Imaging System, an automated imaging and review system, which assists the laboratory in evaluating cells on ThinPrep Pap tests. Following automated imaging, selected poole from every slide are reviewed by a first sampler. Normal [facility] Comment on above: Order Comment: Speci men Type: FLUID SPECIMENOrdering Facility: [facility] Address: [address] [place] [address], [place] [address] Performed By: #### L [id number], HPVHRT ####[facility] LABCLIA [id number] [place] [id number] [place] ELISA CBC W/Diff, Automatedon 09-1 -2023 Absolute Lymph 2.13 X10 3/uL Normal 0.83-4.51 [facility] Comment on above: Order Comment: ADDON PLEASE Performed By: #### L 501.9520, L506.1000, L503.0105, L501.9985, L500.4050, L100.0100, L500.4100 ####[facility] [address] [place], [address] Absolute Neut 3.3 X10 3/uL Normal 2.0-7.7 [facility] Comment on above: Order Comment: ADDON PLEASE Performed By: #### L 501.9520, L506.1000, L503.0105, L501.9985, L500.4050, L100.0100, L500.4100 ####[facility] [address] [place], [address] Basophils/100 WBC (Bld) 0.8 % Normal 0-1 [facility] Comment on above: Order Comment: ADDON PLEASE Performed By: #### L 501.9520, L506.1000, L503.0105, L501.9985, L500.4050, L100.0100, L500.4100 ####[facility] [address] [place], [address] Eosinophils/100 WBC (Bld) 1.8 % Normal 0-5 [facility] Comment on above: Order Comment: ADDON PLEASE Performed By: #### L 501.9520, L506.1000, L503.0105, L501.9985, L500.4050, L100.0100, L500.4100 ####[facility] [address] [place], [address] Erythrocyte distribution width (RBC) [Ratio] 14.3 % Normal 11.6-14.6 [facility] Comment on above: Order Comment: ADDON PLEASE Performed By: #### L 501.9520, L506.1000, L503.0105, L501.9985, L500.4050, L100.0100, L500.4100 ####[facility] [address] [place], [address] Hematocrit (Bld) [Volume fraction] 44.7 % Normal 37-47 [facility] Comment on above: Order Comment: ADDON PLEASE Performed By: #### L 501.9520, L506.1000, L503.0105, L501.9985, L500.4050, L100.0100, L500.4100 ####[facility] [address] [place], [address] Hemoglobin (Bld) [Mass/Vol] 14.3 g/dL Normal 12.0-15.0 [facility] Comment on above: Order Comment: ADDON PLEASE Performed By: #### L 501.9520, L506.1000, L503.0105, L501.9985, L500.4050, L100.0100, L500.4100 ####[facility] [address] [place], [place], [phone] IG% 0.500 Normal 0.0-0.9 [facility] Comment on above: Order Comment: ADDON PLEASE Result Comment: IG% - Immature Granulocytes (promyelocytes, myelocytes and metamyelocytes) > 1% indicates that a LEFT SHIFT is Present. Performed By: #### L 501.9520, L506.1000, L503.0105, L501.9985, L500.4050, L100.0100, L500.4100 ####[facility] [address] [place], [address] Lymphocytes/100 WBC (Bld) 35.8 % Normal 19-41 [facility] Comment on above: Order Comment: ADDON PLEASE Performed By: #### L 501.9520, L506.1000, L503.0105, L501.9985, L500.4050, L100.0100, L500.4100 ####[facility] [address] [place], [address] MCH (RBC) [Entitic mass] 27.7 pg Normal 27.0-32.0 [facility] Comment on above: Order Comment: ADDON PLEASE Performed By: #### L 501.9520, L506.1000, L503.0105, L501.9985, L500.4050, L100.0100, L500.4100 ####[facility] [address] [place], [address] MCHC (RBC) [Mass/Vol] 32.0 g/dL Normal 32-36 [facility] Comment on above: Order Comment: ADDON PLEASE Performed By: #### L 501.9520, L506.1000, L503.0105, L501.9985, L500.4050, L100.0100, L500.4100 ####[facility] [address] [place], [address] MCV (RBC) [Entitic vol] 86.6 fL Normal 81-99 [facility] Comment on above: Order Comment: ADDON PLEASE Performed By: #### L 501.9520, L506.1000, L503.0105, L501.9985, L500.4050, L100.0100, L500.4100 ####[facility] [address] [place], [address] Monocytes/100 WBC (Bld) 5.0 % Normal 0-10 [facility] Comment on above: Order Comment: ADDON PLEASE Performed By: #### L 501.9520, L506.1000, L503.0105, L501.9985, L500.4050, L100.0100, L500.4100 ####[facility] [address] [place], [address] Neutrophils/100 WBC (Bld) 56.1 % Normal 47-70 [facility] Comment on above: Order Comment: ADDON PLEASE Performed By: #### L 501.9520, L506.1000, L503.0105, L501.9985, L500.4050, L100.0100, L500.4100 ####[facility] [address] [place], [address] Nucleated RBC (Bld) [#/Vol] 0 10*3/uL Normal 0-5 [facility] Comment on above: Order Comment: ADDON PLEASE Performed By: #### L 501.9520, L506.1000, L503.0105, L501.9985, L500.4050, L100.0100, L500.4100 ####[facility] [address] [place], [address] Platelet mean volume (Bld) [Entitic vol] 11.2 fL Normal 6.2-12.0 [facility] Comment on above: Order Comment: ADDON PLEASE Performed By: #### L 501.9520, L506.1000, L503.0105, L501.9985, L500.4050, L100.0100, L500.4100 ####[facility] [address] [place], [address] Platelets (Bld) [#/Vol] 215 10*3/uL Normal 150-450 [facility] Comment on above: Order Comment: ADDON PLEASE Performed By: #### L 501.9520, L506.1000, L503.0105, L501.9985, L500.4050, L100.0100, L500.4100 ####[facility] [address] [place], [address] RBC (Bld) [#/Vol] 5.16 10*6/uL Normal 4.2-5.4 [facility] Comment on above: Order Comment: ADDON PLEASE Performed By: #### L 501.9520, L506.1000, L503.0105, L501.9985, L500.4050, L100.0100, L500.4100 ####[facility] [address] [place], [address] RDW SD 45.5 fl High 35.1-43.9 [facility] Comment on above: Order Comment: ADDON PLEASE Performed By: #### L 501.9520, L506.1000, L503.0105, L501.9985, L500.4050, L100.0100, L500.4100 ####[facility] [address] [place], [address] WBC (Bld) [#/Vol] 6.0 10*3/uL Normal 4.4-11.0 [facility] Comment on above: Order Comment: ADDON PLEASE Performed By: #### L 501.9520, L506.1000, L503.0105, L501.9985, L500.4050, L100.0100, L500.4100 ####[facility] [address] [place], [address] Comprehensive Metabolic Prof ilon 06-18-2024 Albumin [Mass/Vol] 3.9 g/dL Normal 3.2-5.0 [facility] Comment on above: Order Comment: CBCD Performed By: #### L 501.9520, L506.1000, L503.0105, L501.9985, L500.4050, L100.0100, L500.4100 ####[facility] [address] [place], [address] Albumin/Globulin [Mass ratio] 1.3 {ratio} Normal 0.9-2.4 [facility] Comment on above: Order Comment: CBCD Performed By: #### L 501.9520, L506.1000, L503.0105, L501.9985, L500.4050, L100.0100, L500.4100 ####[facility] [address] [place], [address] ALK P 113 U/L Normal 45-117 [facility] Comment on above: Order Comment: CBCD Performed By: #### L 501.9520, L506.1000, L503.0105, L501.9985, L500.4050, L100.0100, L500.4100 ####[facility] [address] [place], [address] ALT [Catalytic activity/Vol] 32 U/L Normal 13-56 [facility] Comment on above: Order Comment: CBCD Performed By: #### L 501.9520, L506.1000, L503.0105, L501.9985, L500.4050, L100.0100, L500.4100 ####[facility] [address] [place], [address] AST [Catalytic activity/Vol] 19 U/L Normal 15-37 [facility] Comment on above: Order Comment: CBCD Performed By: #### L 501.9520, L506.1000, L503.0105, L501.9985, L500.4050, L100.0100, L500.4100 ####[facility] [address] [place], [address] Bilirubin [Mass/Vol] 0.80 mg/dL Normal 0.20-1.00 [facility] Comment on above: Order Comment: CBCD Result Comment: For patients on eltrombopag therapy, use of Dimension [place] TBIL is not recommended. Performed By: #### L 501.9520, L506.1000, L503.0105, L501.9985, L500.4050, L100.0100, L500.4100 ####[facility] [address] [place], [address] BUN/CRE 48.2 RATIO High 10-20 [facility] Comment on above: Order Comment: CBCD Performed By: #### L 501.9520, L506.1000, L503.0105, L501.9985, L500.4050, L100.0100, L500.4100 ####[facility] [address] [place], [address] CA,Total 9.3 mg/dL Normal 8.5-10.1 [facility] Comment on above: Order Comment: CBCD Performed By: #### L 501.9520, L506.1000, L503.0105, L501.9985, L500.4050, L100.0100, L500.4100 ####[facility] [address] [place], [address] Chloride [Moles/Vol] 109 mmol/L High 98-107 [facility] Comment on above: Order Comment: CBCD Performed By: #### L 501.9520, L506.1000, L503.0105, L501.9985, L500.4050, L100.0100, L500.4100 ####[facility] [address] [place], [address] CO2 [Moles/Vol] 26.0 mmol/L Normal 21.0-32.0 [facility] Comment on above: Order Comment: CBCD Performed By: #### L 501.9520, L506.1000, L503.0105, L501.9985, L500.4050, L100.0100, L500.4100 ####[facility] [address] [place], [address] Creatinine [Mass/Vol] 0.48 mg/dL Low 0.55-1.02 [facility] Comment on above: Order Comment: CBCD Result Comment: The validity of the calculated GFR GFRAA in patients over 70 years has not been determined. Clinical correlation is essential. Performed By: #### L 501.9520, L506.1000, L503.0105, L501.9985, L500.4050, L100.0100, L500.4100 ####[facility] [address] [place], [address] EST GFR - AA 168 mL/min Normal >60 [facility] Comment on above: Order Comment: CBCD Result Comment: Afri can Vincentian GFR Calc Performed By: #### L 501.9520, L506.1000, L503.0105, L501.9985, L500.4050, L100.0100, L500.4100 ####[facility] [address] [place], [address] GAP 6 Normal 5-15 [facility] Comment on above: Order Comment: CBCD Performed By: #### L 501.9520, L506.1000, L503.0105, L501.9985, L500.4050, L100.0100, L500.4100 ####[facility] [address] [place], [address] GFR/1.73 sq M.predicted among non-blacks MDRD (S/P/Bld) [Vol rate/Area] 139 mL/min/{1.73_m2} Normal >60 [facility] Comment on above: Order Comment: CBCD Result Comment: Non- GFR Calc Performed By: #### L 501.9520, L506.1000, L503.0105, L501.9985, L500.4050, L100.0100, L500.4100 ####[facility] [address] [place], [address] Globulin (S) [Mass/Vol] 3.0 g/dL Normal 2.2-4.2 [facility] Comment on above: Order Comment: CBCD Performed By: #### L 501.9520, L506.1000, L503.0105, L501.9985, L500.4050, L100.0100, L500.4100 ####[facility] [address] [place], [address] Glucose [Mass/Vol] 94 mg/dL Normal 74-106 [facility] [facility] Comment on above: Order Comment: CBCD Performed By: #### L 501.9520, L506.1000, L503.0105, L501.9985, L500.4050, L100.0100, L500.4100 ####[facility] [address] [place], [address] Potassium [Moles/Vol] 4.0 mmol/L Normal 3.5-5.1 [facility] Comment on above: Order Comment: CBCD Performed By: #### L 501.9520, L506.1000, L503.0105, L501.9985, L500.4050, L100.0100, L500.4100 ####[facility] [address] [place], [address] Sodium [Moles/Vol] 141 mmol/L Normal 136-145 [facility] Comment on above: Order Comment: CBCD Performed By: #### L 501.9520, L506.1000, L503.0105, L501.9985, L500.4050, L100.0100, L500.4100 ####[facility] [address] [place], [address] T PROT 6.9 g/dL Normal 6.4-8.2 [facility] Comment on above: Order Comment: CBCD Performed By: #### L 501.9520, L506.1000, L503.0105, L501.9985, L500.4050, L100.0100, L500.4100 ####[facility] [address] [place], [address] Urea nitrogen [Mass/Vol] 23 mg/dL High 7-18 [facility] Comment on above: Order Comment: CBCD Performed By: #### L 501.9520, L506.1000, L503.0105, L501.9985, L500.4050, L100.0100, L500.4100 ####[facility] [address] [place], [address] Hemoglobin A1con 06-18-2024 HbA1c (Bld) [Mass fraction] 6.0 % High 3.8-5.6 [facility] Comment on above: Result Comment: Norm al < 5.7 % Prediabetic 5.7 - 6.4 % Diabetic >or= 6.5 % Please note range changes. Performed By: #### L 501.9520, L506.1000, L503.0105, L501.9985, L500.4050, L100.0100, L500.4100 #### [facility] [address] [place], [address] Lipid Profileon 06-18-2024 Cholesterol [Mass/Vol] 161 mg/dL Normal 200 [facility] Comment on above: Order Comment: CBCD Result Comment: <200 mg/dL Desirable 200-240 mg/dL Borderline >240 mg/dL High Risk Performed By: #### L 501.9520, L506.1000, L503.0105, L501.9985, L500.4050, L100.0100, L500.4100 ####[facility] [address] [place], [address] Cholesterol in HDL [Mass/Vol] 57 mg/dL Normal [facility] Comment on above: Order Comment: CBCD Result Comment: The drugs N-Acetylcysteine and Metamizole may falsely depress this assay. Reference Range HDL <40 mg/dL Low HDL Cholesterol HDL >or= 60 mg/dL High HDL Cholesterol Performed By: #### L 501.9520, L506.1000, L503.0105, L501.9985, L500.4050, L100.0100, L500.4100 ####[facility] [address] [place], [address] Cholesterol in LDL [Mass/Vol] 75 mg/dL Normal 0-130 [facility] Comment on above: Order Comment: CBCD Performed By: #### L 501.9520, L506.1000, L503.0105, L501.9985, L500.4050, L100.0100, L500.4100 ####[facility] [address] [place], [address] Cholesterol in VLDL [Mass/Vol] 29 mg/dL Normal 5-40 [facility] Comment on above: Order Comment: CBCD Performed By: #### L 501.9520, L506.1000, L503.0105, L501.9985, L500.4050, L100.0100, L500.4100 ####[facility] [address] [place], [address] Triglyceride [Mass/Vol] 145 mg/dL Normal W [facility] Comment on above: Order Comment: CBCD Result Comment: The drugs N-Acetylcysteine and Metamizole may falsely depress this assay. Serum Triglycerides Reference Interval Normal <150 mg/dL Borderline high 150 - 199 mg/dL High 200 - 499 mg/dL Very High > or = 500 mg/dL Performed By: #### L 501.9520, L506.1000, L503.0105, L501.9985, L500.4050, L100.0100, L500.4100 ####[facility] [address] [place], [address] Thyroid Stim Hormone (TSH)on 06-18-2024 TSH 2.370 uIU/mL Normal 0.358-3.740 [facility] Comment on above: Order Comment: CBCD Performed By: #### L 501.9520, L506.1000, L503.0105, L501.9985, L500.4050, L100.0100, L500.4100 ####[facility] [address] [place], [address] Vitamin B12on 06-18-2024 Cobalamin (Vitamin B12) [Mass/Vol] 808 pg/mL Normal 211-911 [facility] Comment on above: Performed By: #### L 501.9520, L506.1000, L503.0105, L501.9985, L500.4050, L100.0100, L500.4100 #### [facility] [address] [place], [address] Vitamin D,25 Hydroxyon 06-18 Vitamin D 25-OH 46.7 ng/mL Normal [facility] Comment on above: Result Comment: Lynda min D 25(OH) Status Range Deficiency <20 ng/mL (50nmol/L) Insufficiency 20 - 30 ng/mL (50 - 75 nmol/L) Sufficiency 30 - 100 ng/mL (75 - 250 nmol/L) Toxicity >100 ng/mL (>250 nmol/L) Performed By: #### L 501.9520, L506.1000, L503.0105, L501.9985, L500.4050, L100.0100, L500.4100 #### [facility] [address] [place], [address] CBC panel Auto (Bld)on 03-26 Erythrocyte distribution width (RBC) [Ratio] 13.9 % Normal 11.5-15.0 [facility] Comment on above: Order Comment: Speci men Type: BLOOD SPECIMENOrdering Facility: [facility] Address: [address] [place] [address] Performed By: #### 5 8410-2 ####[facility] LABCLIA [id number] [place] [address] [place] Hematocrit (Bld) [Volume fraction] 45.3 % Normal 36.0-46.0 [facility] Comment on above: Order Comment: Speci men Type: BLOOD SPECIMENOrdering Facility: [facility] Address: [address] [place] [address] Performed By: #### 5 8410-2 ####[facility] LABCLIA [id number] [address] [address] [place] ELISA Hemoglobin (Bld) [Mass/Vol] 14.5 g/dL Normal 11.5-15.5 [facility] Comment on above: Order Comment: Speci men Type: BLOOD SPECIMENOrdering Facility: [facility] Address: [address] [place] [address] Performed By: #### 5 8410-2 ####[facility] LABCLIA [id number] [place] [address] [place] MCH (RBC) [Entitic mass] 27.6 pg Normal 26.0-34.0 [facility] Comment on above: Order Comment: Speci men Type: BLOOD SPECIMENOrdering Facility: [facility] Address: [address] [place] [address] Performed By: #### 5 8410-2 ####[facility] LABCLIA [id number] [address] STATES OF ELISA MCHC (RBC) [Mass/Vol] 32.0 g/dL Normal 30.5-36.0 [facility] Comment on above: Order Comment: Speci men Type: BLOOD SPECIMENOrdering Facility: [facility] Address: [address] [place] [address] Performed By: #### 5 8410-2 ####[facility] LABCLIA [id number] [place] [address] [place] MCV (RBC) [Entitic vol] 86.3 fL Normal 80.0-100.0 [facility] Comment on above: Order Comment: Speci men Type: BLOOD SPECIMENOrdering Facility: [facility] Address: [address] [place] [address] Performed By: #### 5 8410-2 ####[facility] LABCLIA [id number] [place] [address] [place] Nucleated RBC (Bld) [#/Vol] 10*3/uL Normal <0.01 [facility] Comment on above: Order Comment: Speci men Type: BLOOD SPECIMENOrdering Facility: [facility] Address: [address] [place] [address] Performed By: #### 5 8410-2 ####[facility] LABIA [id number] [place] [address] [place] Platelet mean volume (Bld) [Entitic vol] 11.0 fL Normal 9.0-12.7 [facility] Comment on above: Order Comment: Speci men Type: BLOOD SPECIMENOrdering Facility: [facility] Address: [address] [place] [address] Performed By: #### 5 8410-2 ####[facility] LABIA [id number] [place] [address] [place] Platelets (Bld) [#/Vol] 232 10*3/uL Normal 150-400 [facility] Comment on above: Order Comment: Speci men Type: BLOOD SPECIMENOrdering Facility: [facility] Address: [address] [place] [address] Performed By: #### 5 8410-2 ####[facility] LABIA [id number] [place] [address] [place] RBC (Bld) [#/Vol] 5.25 10*6/uL High 3.90-5.20 [facility] Comment on above: Order Comment: Speci men Type: BLOOD SPECIMENOrdering Facility: [facility] Address: [address] [place] [address] Performed By: #### 5 8410-2 ####[facility] LABIA [id number] [place] [address] [place] WBC (Bld) [#/Vol] 5.74 10*3/uL Normal 3.70-11.00 [facility] Comment on above: Order Comment: Speci men Type: BLOOD SPECIMENOrdering Facility: [facility] Address: [address] [place], [place] [address] Performed By: #### 5 8410-2 ####[facility] LABCLIA [id number] [place] [id number] [place] ELISA Comprehensive metabolic 2000 panelon 03-26-2024 Albumin [Mass/Vol] 4.5 g/dL Normal 3.9-4.9 [facility] Comment on above: Order Comment: Speci men Type: BLOOD SPECIMENOrdering Facility: [facility] Address: [address] [place] [address], [place] [address] Performed By: #### 2 4323-8, 92002-0 ####[facility] LABCLIA [id number] [place] [address] [place] ALP [Catalytic activity/Vol] 115 U/L Normal 34-123 [facility] Comment on above: Order Comment: Speci men Type: BLOOD SPECIMENOrdering Facility: [facility] Address: [address] [place] [address], [place] [address] Performed By: #### 2 4323-8, 58344-2 ####[facility] LABCLIA [id number] [place] [address] [place] ALT [Catalytic activity/Vol] 29 U/L Normal 7-38 [facility] Comment on above: Order Comment: Speci men Type: BLOOD SPECIMENOrdering Facility: [facility] Address: [address] [place] [address], [place] [address] Performed By: #### 2 4323-8, 22512-8 ####[facility] LABCLIA [id number] [address] [address] [place] Anion gap [Moles/Vol] 12 mmol/L Normal 8-15 [facility] Comment on above: Order Comment: Speci men Type: BLOOD SPECIMENOrdering Facility: [facility] Address: [address] [place] [address], [place] [address] Performed By: #### 2 4323-8, 28017-4 ####[facility] LABCLIA [id number] [address] [address] [place] AST [Catalytic activity/Vol] 29 U/L Normal 13-35 [facility] Comment on above: Order Comment: Speci men Type: BLOOD SPECIMENOrdering Facility: [facility] Address: [address] [place] [address], [place] [address] Performed By: #### 2 4323-8, 68445-4 ####[facility] LABCLIA [id number] [place] [id number] [place] ELISA Bilirubin [Mass/Vol] 0.5 mg/dL Normal 0.2-1.3 [facility] Comment on above: Order Comment: Speci men Type: BLOOD SPECIMENOrdering Facility: [facility] Address: [address] [place] [address], [place] [address] Performed By: #### 2 4323-8, 37342-9 ####[facility] LABCLIA [id number] [place] [address] [place] Calcium [Mass/Vol] 9.6 mg/dL Normal 8.5-10.2 [facility] Comment on above: Order Comment: Speci men Type: BLOOD SPECIMENOrdering Facility: [facility] Address: [address] [place] [address], [place] [address] Performed By: #### 2 4323-8, 27754-5 ####[facility] LABCLIA [id number] [place] [id number] [place] Chloride [Moles/Vol] 105 mmol/L Normal 98-107 [facility] Comment on above: Order Comment: Speci men Type: BLOOD SPECIMENOrdering Facility: [facility] Address: [address] [place] [address], [place] [address] Performed By: #### 2 4323-8, 24288-1 ####[facility] LABCLIA [id number] [place] [id number] [place] CO2 [Moles/Vol] 23 mmol/L Normal 22-30 [facility] Comment on above: Order Comment: Speci men Type: BLOOD SPECIMENOrdering Facility: [facility] Address: [address] [place] [address], [place] [address] Performed By: #### 2 4323-8, 11655-8 ####[facility] LABCLIA [id number] [place] [address] [place] Creatinine [Mass/Vol] 0.48 mg/dL Low 0.58-0.96 [facility] Comment on above: Order Comment: Speci men Type: BLOOD SPECIMENOrdering Facility: [facility] Address: [address] [place] [address] Performed By: #### 2 4323-8, 47134-0 ####[facility] LABCLIA [id number] [place] [address] [place] Creatinine and Glomerular filtration rate.predicted panel (S/P/Bld) 106 mL/min/1.73m??? Normal >=60 [facility] Comment on above: Order Comment: Speci men Type: BLOOD SPECIMENOrdering Facility: [facility] Address: [address] [place] [address], [place] [address] Result Comment: Daisy mated Glomerular Filtration Rate [...] actual GFR. Performed By: #### 2 4323-8, 86257-0 ####[facility] LABCLIA [id number] [place] [address] [place] Glucose [Mass/Vol] 100 mg/dL High 74-99 [facility] Comment on above: Order Comment: Speci men Type: BLOOD SPECIMENOrdering Facility: [facility] Address: [address] [place] [address] Result Comment: The [place] Diabetes Association (ADA) provides guidance for cutoff [...] Standards of Medical Care in Diabetes 2016, [place] [employer] Association. Diabetes Care. 2016.39(Suppl 1). Performed By: #### 2 4323-8, 22206-5 ####[facility] LABCLIA [id number] [place] [address] [place] Potassium [Moles/Vol] 4.5 mmol/L Normal 3.7-5.1 [facility] Comment on above: Order Comment: Speci men Type: BLOOD SPECIMENOrdering Facility: [facility] Address: [address] [place] [address] Performed By: #### 2 4323-8, 14850-3 ####[facility] LABCLIA [id number] [place] [address] [place] Protein [Mass/Vol] 5.9 g/dL Low 6.3-8.0 [facility] Comment on above: Order Comment: Speci men Type: BLOOD SPECIMENOrdering Facility: [facility] Address: [address] [place] [address] Performed By: #### 2 4323-8, 76751-3 ####[facility] LABCLIA [id number] [address] [address] [place] ELISA Sodium [Moles/Vol] 140 mmol/L Normal 136-144 [facility] Comment on above: Order Comment: Speci men Type: BLOOD SPECIMENOrdering Facility: [facility] Address: [address] [place] [address], [place] [address] Performed By: #### 2 4323-8, 09769-8 ####[facility] LABCLIA [id number] [address] STATES OF ELISA Urea nitrogen [Mass/Vol] 20 mg/dL Normal 7-21 [facility] Comment on above: Order Comment: Speci men Type: BLOOD SPECIMENOrdering Facility: [facility] Address: [address] [place] [address] Performed By: #### 2 4323-8, 76301-5 ####[facility] LABCLIA [id number] [place] [address] [place] HbA1c (Bld)on 03-26-2024 Average glucose Estimated from glycated hemoglobin (Bld) [Mass/Vol] 123 mg/dL Normal [facility] Comment on above: Order Comment: Speci men Type: BLOOD SPECIMENOrdering Facility: [facility] Address: [address] [place] [address] Result Comment: eAG: (Estimated average glucose) is a calculated value from HgbA1c and is veterans service representative of the average blood glucose level in the last 2-3 month period. Performed By: #### 5 5454-3 ####[facility] LABCLIA [id number] [place] [address] [place] HbA1c (Bld) [Mass fraction] 5.9 % High 4.3-5.6 [facility] Comment on above: Order Comment: Speci men Type: BLOOD SPECIMENOrdering Facility: [facility] Address: [address] [place] [address] Result Comment: Amer [place] Diabetes Association guidelines indicate that patients with HgbA1c in the range 5.7-6.4% are at increased risk for development of diabetes, and intervention by lifestyle modification may be beneficial. HgbA1c greater or equal to 6.5% is considered diagnostic of diabetes. Performed By: #### 5 5454-3 ####[facility] LABCLIA [id number] [place] [address] [place] Lipid 1996 panelon 4 Cholesterol [Mass/Vol] 162 mg/dL Normal <200 [facility] [place] Comment on above: Order Comment: Speci men Type: BLOOD SPECIMENOrdering Facility: [facility] Address: [address] [place] [address], [place] [address] Result Comment: <200 mg/dL, Desirable 200-239 mg/dL, Borderline high >239 mg/dL, High Performed By: #### 2 4323-8, 70331-0 ####[facility] LABCLIA [id number] [address] STATES OF ELISA Cholesterol in HDL [Mass/Vol] 48 mg/dL Normal >39 [facility] Comment on above: Order Comment: Speci men Type: BLOOD SPECIMENOrdering Facility: [facility] Address: [address] [place] [address], [place] [address] Result Comment: 40-5 9 mg/dL, Acceptable >59 mg/dL, High: Negative risk factor for coronary heart disease <40 mg/dL, Low: Positive risk factor for coronary heart disease Performed By: #### 2 4323-8, 90163-1 ####[facility] LABCLIA [id number] [address] [place] [facility] Cholesterol in LDL [Mass/Vol] 87 mg/dL Normal <100 [facility] Comment on above: Order Comment: Speci men Type: BLOOD SPECIMENOrdering Facility: [facility] Address: [address] [place] [address], [place] [address] Result Comment: <100 mg/dL, Optimal 100-129 mg/dL, Near optimal/above optimal 130-159 mg/dL, Borderline high 160-189 mg/dL, High >189 mg/dL, Very high Secondary prevention optimal LDL Cholesterol levels are recommended to be < 70 mg/dL Performed By: #### 2 4323-8, 90863-4 ####[facility] LABCLIA [id number] [place] [address] Cholesterol in LDL/Cholesterol in HDL [Mass ratio] 1.81 {ratio} Normal <2.54 [facility] Comment on above: Order Comment: Barbara omar Type: BLOOD SPECIMENOrdering Facility: [facility] Address: [address] [place] [address] Result Comment: [place]acy [place]: 1. National Cholesterol Education Program ATP III Guideline At-A-Glance Quick Desk Reference: National Heart, Lung, and Blood [place]. National Institutes of Health. 2001: NIH Publication No. 01-3305. 2. An International Atherosclerosis Society position paper: global recommendations for the management of dyslipidemia: executive summary, Atherosclerosis. 2014: 232(2):410-413. Performed By: #### 2 4323-8, 87237-6 ####[facility] LABCLIA [id number] [address] STATES OF ELISA Cholesterol in VLDL [Mass/Vol] 27 mg/dL Normal <30 [facility] Comment on above: Order Comment: Barbara omar Type: BLOOD SPECIMENOrdering Facility: [facility] Address: [address] [place] [address], [place] [address] Performed By: #### 2 4323-8, 11764-9 ####[facility] LABCLIA [id number] [address] [facility] Cholesterol non HDL [Mass/Vol] 114 mg/dL Normal <130 [facility] Comment on above: Order Comment: Ryleecamille nelson Type: BLOOD SPECIMENOrdering Facility: [facility] Address: [address] [place] [address], [place] [address] Result Comment: <130 mg/dL, Optimal 130-159 mg/dL, Near optimal/above optimal 160-189 mg/dL, Borderline high 190-219 mg/dL, High >219 mg/dL, Very high Secondary prevention optimal non HDL Cholesterol levels are recommended to be <100 mg/dL Performed By: #### 2 4323-8, 32914-9 ####[facility] LABCLIA [id number] [place] [address] OF ELISA Cholesterol.total/Aubrie sterol in HDL [Mass ratio] 3.38 {ratio} Normal <5.10 [facility] Comment on above: Order Comment: Speci men Type: BLOOD SPECIMENOrdering Facility: [facility] Address: [address] [place] [address], [place] [address] Performed By: #### 2 4323-8, 85340-8 ####[facility] LABCLIA [id number] [address] STATES OF ELISA FASTING TIME UNKNOWN Normal [facility] Comment on above: Order Comment: Speci men Type: BLOOD SPECIMENOrdering Facility: [facility] Address: [address] [place] [address], [place] [address] Performed By: #### 2 4323-8, 61833-5 ####[facility] LABCLIA [id number] [address] STATES OF ELISA Triglyceride [Mass/Vol] 135 mg/dL Normal <150 [facility] Comment on above: Order Comment: Speci men Type: BLOOD SPECIMENOrdering Facility: [facility] Address: [address] [place] [address], [place] [address] Result Comment: <150 mg/dL, Normal 150-199 mg/dL, Borderline high 200-499 mg/dL, High >499 mg/dL, Very high Performed By: #### 2 4323-8, 85824-2 ####[facility] LABCLIA [id number] [place] [address] [place] MAMMOGRAM SCREENING BILAT ERAL W/TOMOon 03-12-2024 [place] MAMMOGRAM SCREENING BILATERAL W/MARY BETH ORIGINAL FROM: DANIELLE ALMAZAN [address] [place] [address] PROCEDURE FOR: BRANDI SAUCEDA [address] [place] [id number] Home: PID#: [id number] Exam#: [id number] : 1960 Age: 63 TO: YENNY KAUFFMAN [employer] ATTEND[employer] [facility] [address] [place], [place] [address] Fax: NO FAX EXAMINATION: SCREENING DIGITAL BILATERAL [...] screening with annual mammograms is recommended. Vipul zick risk calculations, generated with the history provided, [...] addition to annual mammographic screening per the [employer] [employer]. BIRADS: MAMMOGRAM BI-RADS: 2: Benign finding RECALL: 1 year screening RECALL TYPE: mammo LETTER SENT: Normal BI-RADS 1 and 2 Interpreted by: Kitty Cruz Preliminary Report By: Kitty Cruz Electronically signed By Kitty Cruz Dictated Date: 03/12/2024 3:25:08 PM Prelim Date: 03/12/2024 3:40:01 PM Sign Date: 03/12/2024 3:40:01 PM Ordering Provider: YENNY KAUFFMAN [employer] Feeder: WILFREDO MARCELO(R) RDMS letter sent: Normal BI-RADS 1 and 2 Mammogram BI-RADS: 2 Benign Normal [facility] ([place]) CNOVon 12-22-2023 CNOV Office Visit (PODIWS ) BRANDI SAUCEDA ([id number]) 1960 F Date Time Provider Department 12/22/23 10:45 AM [facility] PODIWS During your visit [...] (H) 4.3 - 5.6 % Final Comment: [place] Diabetes Association guidelines indicate that patients with [...] appear to be healing without infection ASSESSMENT: (S94.109A) Open wound of toe, initial encounter (primary [...] topical antibiot (more content not included)... Normal [facility] CNPNon 12-11-2023 CNPN Telephone (PODIWS) BRANDI SAUCEDA ([id number]) 1960 F Date Time Provider Department 12/11/23 [facility] During your visit today, we recorded the following information about you: Jeovanny Powell MA 12/11/2023 12:15 PM Signed Pt calling to see when she can return to work. She is scheduled Monday. She works at [employer] and is on her feet the whole time. She was unsure of her restrictions. If she is able to return, she will need a note. Please review and advise. WILLIAM Antoine Amelia, LPN 12/11/2023 1:41 PM Signed [facility] Power [facility] Pod[facility]ry Pool 38 minutes ago (1:01 PM) I called patient. She is doing well. She is ok to return to work as scheduled Continue with local wound care Corby Power DPM Allergies As of Date: 12/11/2023 Noted Allergy Reaction ASPIRIN 01/15/2009 8 - GI Upset Comments: vomitting and stomach pains CODEINE 01/15/2009 8 - GI Upset Date Reviewed: 12/08/2023 Reviewed by: Renetta Miranda RN - Fully Assessed Reason for Visit: Patient Question [7307] Prescriptions as of 12/11/2023 - Lactobacillus acidophilus [...] Encounter Status:Closed by JEOVANNY POWELL on 12/11/23 [facility] ANES POSTPROC EVALon 024 ANES POSTPROC EVAL HNO ID: [id number] Author: DARRICK MENDEZ MD Service: ? Author Type: Anesthesiologist Type: Anesthesia Postprocedure Evaluation Filed: 12/08/2023 12:01 Note Text: POST ANESTHESIA EVALUATION NOTE : 1960 Procedure Summary Date: 12/08/23 Room / Location: [place] OR02 / [place] Anesthesia Start: 832 Anesthesia Stop: 999 Procedure: EXCISION OF NAIL AND MATRIX FOR PERMANENT REMOVAL (Bilateral) Diagnosis: Onychomycosis (Onychomycosis [B35.1]) Surgeons: oCrby Power Responsible Provider: Darrick Mendez MD Anesthesia [...] December 08, 2023 TIME: 12:00 PM CSN: [id number] [facility] ANES PRE-OPon 12-08-2023 ANES PRE-OP HNO ID: [id number] Author: DARRICK MENDEZ MD Service: ? Author Type: Anesthesiologist Type: Anesthesia Preprocedure Evaluation Filed: 12/08/2023 08:04 Note Text: ANESTHESIOLOGY DAY OF SURGERY NOTE : 1960 Procedure Information Date/Time: 12/08/23826 Procedure: EXCISION OF NAIL AND MATRIX FOR PERMANENT REMOVAL (Bilateral) Location: [place] OR02 / [place] OR Surgeons: Corby Power Estimated body mass [...] and consent discussed: yes. Patient / Responsible [employer] agrees to proceed: yes Patient / [...] none. Vitals Value Taken Time BP 125/72 12/08/2331 Pulse 70 12/08/2331 Resp 20 12/08/23730 Temp 36.2 ?C (97.2 ?F) 12/08/23730 SpO2 97 % 12/08/23730 Facility-Administered Medications as of 12/08/2023 Medication Dose [...] December 08, 2023 TIME: 8:02 AM CSN: [id number] [facility] BRIEF OP NOTon 12-08-2023 BRIEF OP NOT HNO ID: [id number] Author: CORBY POWER, ? Service: ? Author Type: Physician Type: Brief Op Note Filed: 12/08/2023 09:57 Note Text: BRIEF OPERATIVE / PROCEDURE NOTE LOG ID: [id number] SURGERY/PROCEDURE DATE: 12/08/2023 INCISION/PROCEDURE START TIME: 8:45 AM INCISION CLOSE/PROCEDURE END TIME: 9:49 AM SURGEON(S)/PROCEDURALI ST(S) AND SALES LEDGER ADMINISTRATOR(S): Surgeon(s) and Role: * Corby Power - Primary No Additional Staff SURGERY/PROCEDURE(S): chemical matrixectomy, toenails 1,2,3,4,5 right. Chemical matrixectomy, toenails 1,2,3,4,5 left ANESTHESIA: Monitored Anesthesia Care FINDINGS: severe dystrophic toenails, b/l feet ESTIMATED BLOOD LOSS: 1 mls SPECIMENS: None COMPLICATIONS: None CLOSURE TECHNIQUE: Non-primary PRE-OP/PRE-PROCEDURE DIAGNOSIS: onychodystrophy, b/l toes 1,2,3,4,5 POST-OP/POST-PROCEDURE DIAGNOSIS: Same as Preop SIGNATURE: Corby Power DPM PATIENT NAME: Brandi Sauceda DATE: December 08, 2023 TIME: 9:56 AM [facility] HISTORY PHYSICALon HISTORY PHYSICAL HNO ID: [id number] Author: CORBY POWER, ? Service: ? Author [...] DATE: December 08, 2023 TIME: 8:16 AM [facility] OPERATIVE NOon 12-08-2023 OPERATIVE NO HNO ID: [id number] Author: CORBY POWER, ? Service: ? Author Type: Physician Type: Operative Report Filed: 12/09/2023 06:21 Note Text: OPERATIVE/PROCEDURE REPORT LOG ID: [id number] SURGERY/PROCEDURE DATE: 12/08/2023 INCISION/PROCEDURE START TIME: 8:45 AM INCISION CLOSE/PROCEDURE END TIME: 9:49 AM SURGEON(S)/PROCEDURALI ST(S) AND SALES LEDGER ADMINISTRATOR(S): Surgeon(s) and Role: * Corby Power - [...] daily. PRE-OP/PRE-PROCEDURE DIAGNOSIS: onychomycosis, toes 1-5 b/l POST-OP/POST-PROCEDURE DIAGNOSIS: Same as (more content not included)... Normal [facility] HISTORY PHYSICALon HISTORY PHYSICAL HNO ID: [id number] Author: RAMON MURGUIA APRN.PATIENT CARE TECHNICIAN Service: ? Author Type: Nurse Practitioner Type: [...] present: no Upper lip bite test: ROCAEL. Microretrognathia/Micr onagthia/Recessed Chin: No DENTAL Dental findings: edentulous. II [...] hyperlipidemia, hyperten (more content not included)... Normal [facility] CNCOon 11-24-2023 CNCO Letter Text Normal [facility] CNOVon 11-13-2023 CNOV Office Visit (PODIWS ) BARNDI SAUCEDA ([id number]) 1960 F Date Time Provider Department 11/13/23 9:15 AM CORBY POWERIWS During your visit today, we recorded the [...] (H) 4.3 - 5.6 % Final Comment: [place] [employer] guidelines indicate that patients with [...] unchanged from previous visit. Non-Invasive Vascular Laboratory [facility] Lower Extremity Arterial Physiology Study Bilateral/Complete Date [...] Waveforms Dors (more content not included)... Normal [facility] CNPNon 11-13-2023 CNPN Telephone (PODIWS) BRANDI SAUCEDA Blaine ([id number]) 1960 F Date Time Provider Department 11/13/23 MARYAMDEMIAN CORBY PODIWS During your visit today, we recorded the following information about you: Corby Power 11/13/2023 9:27 AM Signed Patient name: Brandi Sauceda* Type of surgery:chemical matrixectomy, toes 1-5 b/l CPT code:39549 Diagnosis: onychomycosis* Length of surgery:120 min In Flight [employer]uel[employer] Crafts[employer] needed: none* Anesthesia: mac Special equipment: 30 [...] matrixectomy, toes 1-5 b/l on 12/08/2023 at [facility]. Patient was provided with surgical packet including electronic and paper copy of surgical confirmation letter, and instruction on where to go [facility]. All post op were scheduled with in office as well. Patient verbalized understanding of all instructions. Surgery scheduled in [facility]. Indigo Smith LPN Allergies As of Date: [...] Status:Closed by INDIGO SMITH on 12/08/23 Normal [facility] PVR ANK PRESS MINESH VAS LABon 09-08-2023 PVR ANK PRESS MINESH VAS LAB Non-Invasive Vascular Laboratory [facility] Lower Extremity Arterial Physiology Study Bilateral/Complete Date [...] Normal at rest. Technologist: Fariha Cunningham RVT, [facility] Ordering physician: CORBY POWER Interpreting physician: MILLY Mckinney DO Final CC [facility] Image : [id number] See Link below for Image Normal [facility] CNOVon 08-15-2023 CNOV Office Visit (PODIWS ) BRANDI SAUCEDA ([id number]) 1960 F Date Time Provider Department 08/15/23 3:45 PM CORBY POWER PODIWS During your visit today, [...] distress or (more content not included)... Normal [facility] Absolute lymphocyte countOrd ered By: Dr. Sanchez on 01-21-2023 Lymphocytes Auto (Unsp spec) [#/Vol] 2.18 10*3/uL 0.83-4.51 [facility] Basophil percentageOrdered B y: Dr. Sanchez on 01-21-2023 Basophils/100 WBC (Bld) 0.8 % 0-1 [facility] Chloride [Moles/Vol] 110 mmol/L 98-107 [facility] Cholesterol [Mass/Vol] 155 mg/dL <200 [facility] Comment on above: <200 mg/dL Desirable 200-240 mg/dL Borderline >240 mg/dL High Risk Eosinophils/100 WBC (Bld) 4.5 % 0-5 [facility] Glucose [Mass/Vol] 122 mg/dL 74-106 [facility] Comment on above: Fasting Glucose resu lt from 100 to 125 mg/dL suggests IMPAIRED HOMEOSTASIS per A.D.A. criteria. Neutrophils (Bld) [#/Vol] 2.1 10*3/uL 2.0-7.7 [facility] Neutrophils/100 WBC (Bld) 43.3 % 47-70 [facility] Potassium [Moles/Vol] 3.8 mmol/L 3.5-5.1 [facility] Sodium [Moles/Vol] 139 mmol/L 136-145 [facility] Triglyceride [Mass/Vol] 213 mg/dL <199 [facility] Comment on above: The drugs N-Acetylcy steine and Metamizole may falsely depress this assay.Serum Triglycerides Reference Interval Normal <150 mg/dL Borderline high 150 - 199 mg/dL High 200 - 499 mg/dL Very High > or = 500 mg/dL WBC (Bld) [#/Vol] 4.8 10*3/uL 4.4-11.0 [facility] Blood erythrocytes count (nu mber/volume)Ordered By: Dr. Sanchez on 01-21-2023 RBC (Bld) [#/Vol] 4.69 10*6/uL 4.2-5.4 [facility] Blood hemoglobin measurement (mass/volume)Ordered By: Dr. Sanchez on 01-21-2023 Hemoglobin (Bld) [Mass/Vol] 12.8 g/dL 12.0-15.0 [facility] Blood lymphocytes/100 leukoc ytesOrdered By: Dr. Sanchez on 01-21-2023 Lymphocytes/100 WBC (Bld) 45.0 % 19-41 [facility] Blood monocytes/100 leukocyt esOrdered By: Dr. Sanchez on 01-21-2023 Monocytes/100 WBC (Bld) 6.2 % 0-10 [facility] Blood platelet mean volumeOr dered By: Dr. Sanchez on 01-21-2023 Platelet mean volume (Bld) [Entitic vol] 10.6 fL 6.2-12.0 [facility] Determination of erythrocyte mean corpuscular volume (MCV)Ordered By: Dr. Sanchez on 01-21-2023 MCV (RBC) [Entitic vol] 85.7 fL 81-99 [facility] Hematocrit Auto (Bld) [Volum e fraction]Ordered By: Dr. Sanchez on 01-21-2023 Hematocrit (Bld) [Volume fraction] 40.2 % 37-47 [facility] Laboratory - Chemistry and C hemistry - challengeOrdered By: Dr. Sanchez on 01-21-2023 CO2 [Moles/Vol] 25.0 mmol/L 21.0-32.0 [facility] Free T4 [Mass/Vol] 0.89 ng/dL 0.76-1.46 [facility] Urea nitrogen/Creatinine [Mass ratio] 35.9 mg/mg 10-20 [facility] Laboratory - Hematology and Cell countsOrdered By: Dr. Sanchez on 01-21-2023 Erythrocyte distribution width (RBC) [Entitic vol] 43.7 fL 35.1-43.9 [facility] Erythrocyte distribution width (RBC) [Ratio] 14.1 % 11.6-14.6 [facility] Immature granulocytes/100 WBC (Bld) 0.200 % 0.0-0.9 [facility] Comment on above: IG% - Immature Granu locytes (promyelocytes, myelocytes and metamyelocytes) > 1% indicates that a LEFT SHIFT is Present. MCH (RBC) [Entitic mass] 27.3 pg 27.0-32.0 [facility] Nucleated RBC/100 WBC (Bld) [Ratio] 0 % 0-5 [facility] MCHC Auto (RBC) [Mass/Vol]Or dered By: Dr. Sanchez on 01-21-2023 MCHC (RBC) [Mass/Vol] 31.8 g/dL 32-36 [facility] No Panel InformationOrdered By: Dr. Sanchez on 01-21-2023 Estimated Creatinine Clearance Calc 150.93 ml/min [facility] Estimated GFR (MDRD) Amer 150 mL/min >60 [facility] Comment on above: GFR Calc Estimated GFR (MDRD) Non-Af Amer 124 mL/min >60 [facility] Comment on above: Non- GFR Calc Thyroid Stimulating Hormone (TSH) 6.81 uIU/mL 0.358-3.74 [facility] Platelets bldOrdered By: Dr. Sanchez on 01-21-2023 Platelets (Bld) [#/Vol] 185 10*3/uL 150-450 [facility] Serum or plasma calcium faizan urement (mass/volume)Ordered By: Dr. Sanchez on 01-21-2023 Calcium [Mass/Vol] 8.9 mg/dL 8.5-10.1 [facility] Serum or plasma cholesterol in HDL measurement (mass/volume)Ordered By: Dr. Sanchez on 01-21-2023 Cholesterol in HDL [Mass/Vol] 46 mg/dL >40 [facility] Comment on above: The drugs N-Acetylcy steine and Metamizole may falsely depress this assay. Reference Range HDL <40 mg/dL Low HDL Cholesterol HDL >or= 60 mg/dL High HDL Cholesterol Serum or plasma cholesterol in VLDL measurement (mass/volume)Ordered By: Dr. Sanchez on 01-21-2023 Cholesterol in VLDL [Mass/Vol] 43 mg/dL 5-40 [facility] Serum or plasma creatinine m easurement (mass/volume)Ordered By: Dr. Sanchez on 01-21-2023 Creatinine [Mass/Vol] 0.53 mg/dL 0.55-1.02 [facility] Comment on above: The validity of the calculated GFR & GFRAA in patients over 70 years has not been determined. Clinical correlation is essential. Serum or plasma low density lipoprotein (LDL) cholesterol measurement (mass/volume)Ordered By: Dr. Sanchez on 01-21-2023 Cholesterol in LDL [Mass/Vol] 66 mg/dL 0-130 [facility] Serum or plasma urea nitroge n measurement (mass/volume)Ordered By: Dr. Sanchez on 01-21-2023 Urea nitrogen [Mass/Vol] 19 mg/dL 7-18 [facility] Thin prep Papanicolaou smear with manual screeningOrdered By: Dr. Sanchez on 01-21-2023 Thin prep Papanicolaou smear with manual screening 4 5-15 [facility] Whole blood hemoglobin A1c/t otal hemoglobin ratio (mass fraction)Ordered By: Dr. Sanchez on 01-21-2023 HbA1c (Bld) [Mass fraction] 5.8 % 3.8-5.6 [facility] Comment on above: Normal < 5.7 % Predi abetic 5.7 - 6.4 % Diabetic >or= 6.5 % Please note range changes. Absolute lymphocyte countOrd ered By: Dr. Cox on 01-20-2023 Lymphocytes Auto (Unsp spec) [#/Vol] 2.13 10*3/uL 0.83-4.51 [facility] Basophil percentageOrdered B y: Dr. Sanchez on 01-20-2023 Basophil percentage 3.2 mg/dL 2.5-4.9 [facility] Basophil percentageOrdered B y: Dr. Cox on 01-20-2023 Basophil percentage 0-5 SEEN /hpf 0-5 [facility] Basophils/100 WBC (Bld) 0.7 % 0-1 [facility] Bilirubin [Mass/Vol] 0.50 mg/dL 0.20-1.00 [facility] Comment on above: For patients on eltr ombopag therapy, use of Dimension [place] TBIL is not recommended. Chloride [Moles/Vol] 109 mmol/L 98-107 [facility] Eosinophils/100 WBC (Bld) 2.3 % 0-5 [facility] Glucose [Mass/Vol] 132 mg/dL 74-106 [facility] Comment on above: Fasting Glucose resu lt greater than or equal to 126 mg/dL suggests DIABETES MELLITUS per A.D.A. criteria. Neutrophils (Bld) [#/Vol] 4.1 10*3/uL 2.0-7.7 [facility] Neutrophils/100 WBC (Bld) 60.1 % 47-70 [facility] Potassium [Moles/Vol] 4.0 mmol/L 3.5-5.1 [facility] Protein [Mass/Vol] 6.6 g/dL 6.4-8.2 [facility] Sodium [Moles/Vol] 139 mmol/L 136-145 [facility] WBC (Bld) [#/Vol] 6.9 10*3/uL 4.4-11.0 [facility] Bilirubin Test strip Ql (U)O rdered By: Dr. Cox on 01-20-2023 Bilirubin Ql (U) Negative Negative [facility] Blood erythrocytes count (nu mber/volume)Ordered By: Dr. Cox on 01-20-2023 RBC (Bld) [#/Vol] 5.32 10*6/uL 4.2-5.4 [facility] Blood hemoglobin measurement (mass/volume)Ordered By: Dr. Cox on 01-20-2023 Hemoglobin (Bld) [Mass/Vol] 14.7 g/dL 12.0-15.0 [facility] Blood lymphocytes/100 leukoc ytesOrdered By: Dr. Cox on 01-20-2023 Lymphocytes/100 WBC (Bld) 31.1 % 19-41 [facility] Blood monocytes/100 leukocyt esOrdered By: Dr. Cox on 01-20-2023 Monocytes/100 WBC (Bld) 5.7 % 0-10 [facility] Blood platelet mean volumeOr dered By: Dr. Cox on 01-20-2023 Platelet mean volume (Bld) [Entitic vol] 10.4 fL 6.2-12.0 [facility] Determination of erythrocyte mean corpuscular volume (MCV)Ordered By: Dr. Cox on 01-20-2023 MCV (RBC) [Entitic vol] 85.2 fL 81-99 [facility] Hematocrit Auto (Bld) [Volum e fraction]Ordered By: Dr. Cox on 01-20-2023 Hematocrit (Bld) [Volume fraction] 45.3 % 37-47 [facility] Ketones Test strip Ql (U)Ord ered By: Dr. Cox on 01-20-2023 Ketones Ql (U) Negative Negative [facility] Laboratory - Chemistry and C hemistry - challengeOrdered By: Dr. Sanchez on 01-20-2023 Magnesium [Mass/Vol] 2.1 mg/dL 1.6-2.6 [facility] Laboratory - Chemistry and C hemistry - challengeOrdered By: Dr. Cox on 01-20-2023 ALP [Catalytic activity/Vol] 106 U/L 45-117 [facility] ALT [Catalytic activity/Vol] 37 U/L 13-56 [facility] CO2 [Moles/Vol] 27.0 mmol/L 21.0-32.0 [facility] Globulin (S) [Mass/Vol] 2.8 g/dL 2.2-4.2 [facility] Urea nitrogen/Creatinine [Mass ratio] 34.9 mg/mg 10-20 [facility] Laboratory - Hematology and Cell countsOrdered By: Dr. Cox on 01-20-2023 Erythrocyte distribution width (RBC) [Entitic vol] 43.4 fL 35.1-43.9 [facility] Erythrocyte distribution width (RBC) [Ratio] 14.0 % 11.6-14.6 [facility] Immature granulocytes/100 WBC (Bld) 0.100 % 0.0-0.9 [facility] Comment on above: IG% - Immature Granu locytes (promyelocytes, myelocytes and metamyelocytes) > 1% indicates that a LEFT SHIFT is Present. MCH (RBC) [Entitic mass] 27.6 pg 27.0-32.0 [facility] Nucleated RBC/100 WBC (Bld) [Ratio] 0 % 0-5 [facility] MCHC Auto (RBC) [Mass/Vol]Or dered By: Dr. Cox on 01-20-2023 MCHC (RBC) [Mass/Vol] 32.5 g/dL 32-36 [facility] Mucus LM Ql (Urine sed)Order ed By: Dr. Cox on 01-20-2023 Mucus Ql (Urine sed) 0 SEEN /hpf [facility] Nitrite Test strip Ql (U)Ord ered By: Dr. Cox on 01-20-2023 Nitrite Ql (U) Negative Negative [facility] No Panel InformationOrdered By: Dr. Sanchez on 01-20-2023 Troponin I High Sensitivity 124 pg/mL 3.0-54.0 [facility] Comment on above: Critical Result(s) C alled at: 21:30:48 01/20/2023 by: Radha Gallagher. Results read back by same. Please Note: New Test Units and Gender Specific Reference Ranges. For more information see Policy Stat Procedure [place] High Sensitivity Troponin (TNIH) and attachments. No Panel InformationOrdered By: Dr. Cox on 01-20-2023 Troponin I High Sensitivity 118 pg/mL 3.0-54.0 [facility] Comment on above: Please Note: New Lorna t Units and Gender Specific Reference Ranges. For more information see Policy Stat Procedure [place] High Sensitivity Troponin (TNIH) and attachments. Estimated Creatinine Clearance Calc 138.89 ml/min [facility] Estimated GFR (MDRD) Amer 137 mL/min >60 [facility] Comment on above: GFR Calc Estimated GFR (MDRD) Non-Af Amer 113 mL/min >60 [facility] Comment on above: Non- GFR Calc Platelets bldOrdered By: Dr. Cox on 01-20-2023 Platelets (Bld) [#/Vol] 208 10*3/uL 150-450 [facility] Protein Test strip Ql (U)Ord ered By: Dr. Cox on 01-20-2023 Protein Ql (U) Negative Negative [facility] Serum or plasma albumin faizan urement (mass/volume)Ordered By: Dr. Cox on 01-20-2023 Albumin [Mass/Vol] 3.8 g/dL 3.2-5.0 [facility] Serum or plasma albumin/glob ulin mass ratioOrdered By: Dr. Cox on 01-20-2023 Albumin/Globulin [Mass ratio] 1.4 {ratio} 0.9-2.4 [facility] Serum or plasma calcium faizan urement (mass/volume)Ordered By: Dr. Cox on 01-20-2023 Calcium [Mass/Vol] 8.9 mg/dL 8.5-10.1 [facility] Serum or plasma creatinine m easurement (mass/volume)Ordered By: Dr. Cox on 01-20-2023 Creatinine [Mass/Vol] 0.57 mg/dL 0.55-1.02 [facility] Comment on above: The validity of the calculated GFR & GFRAA in patients over 70 years has not been determined. Clinical correlation is essential. Serum or plasma urea nitroge n measurement (mass/volume)Ordered By: Dr. Cox on 01-20-2023 Urea nitrogen [Mass/Vol] 20 mg/dL 7-18 [facility] Squamous epithelial cells de tection in urine sediment by light microscopyOrdered By: Dr. Cox on 01-20-2023 Epithelial cells.squamous LM Ql (Urine sed) 0 SEEN /hpf 5-10 [facility] Thin prep Papanicolaou smear with manual screeningOrdered By: Dr. Cox on 01-20-2023 Thin prep Papanicolaou smear with manual screening 22 U/L 15-37 [facility] Thin prep Papanicolaou smear with manual screening 3 5-15 [facility] Urine blood detectionOrdered By: Dr. Cox on 01-20-2023 RBC Ql (U) Negative Negative [facility] RBC Ql (U) 0 SEEN /hpf 0-5 [facility] Urine clarityOrdered By: Dr. Cox on 01-20-2023 Clarity (U) Clear Clear [facility] Urine color determinationOrd ered By: Dr. Cox on 01-20-2023 Color (U) Yellow Yellow [facility] Urine glucose detectionOrder ed By: Dr. Cox on 01-20-2023 Glucose Ql (U) Normal mg/dl Normal [facility] Urine leukocyte esterase det ection by dipstickOrdered By: Dr. Cox on 01-20-2023 Leukocyte esterase Test strip Ql (U) 100 /ul Negative [facility] Urine pHOrdered By: Dr. Marco rojas on 01-20-2023 pH (U) 7.0 [pH] 5.0 - 8.0 [facility] Urine sediment bacteria coun t by microscopy (number/high power field)Ordered By: Dr. Cox on 01-20-2023 Bacteria LM.HPF (Urine sed) [#/Area] 0 /[HPF] None Seen [facility] Urine specific gravity measu rementOrdered By: Dr. Cox on 01-20-2023 Specific gravity (U) [Rel density] 1.015 1.002-1.030 [facility] Urobilinogen Auto test strip Ql (U)Ordered By: Dr. Cox on 01-20-2023 Urobilinogen Ql (U) Normal mg/dl Normal [facility] Absolute lymphocyte counton 09-08-2022 Lymphocytes Auto (Unsp spec) [#/Vol] 2.17 10*3/uL 0.83-4.51 [facility] Work Phone: Basophil percentageon 2021 Basophils/100 WBC (Bld) 0.4 % 0-1 [facility] Work Phone: Bilirubin [Mass/Vol] 0.40 mg/dL 0.20-1.00 [facility] Work Phone: Comment on above: For patients on eltr ombopag therapy, use of Dimension [place] TBIL is not recommended. Chloride [Moles/Vol] 112 mmol/L 98-107 [facility] Work Phone: Eosinophils/100 WBC (Bld) 3.0 % 0-5 [facility] Work Phone: Glucose [Mass/Vol] 113 mg/dL 74-106 [facility] Work Phone: Comment on above: Fasting Glucose resu lt from 100 to 125 mg/dL suggests IMPAIRED HOMEOSTASIS per A.D.A. criteria. Neutrophils (Bld) [#/Vol] 2.4 10*3/uL 2.0-7.7 [facility] Work Phone: Neutrophils/100 WBC (Bld) 46.9 % 47-70 [facility] Work Phone: [phone] Potassium [Moles/Vol] 3.8 mmol/L 3.5-5.1 [facility] Work Phone: [phone] Protein [Mass/Vol] 5.6 g/dL 6.4-8.2 [facility] Work Phone: [phone] Sodium [Moles/Vol] 141 mmol/L 136-145 [facility] Work Phone: [phone] WBC (Bld) [#/Vol] 5.0 10*3/uL 4.4-11.0 [facility] Work Phone: Blood erythrocytes count (nu mber/volume)on 09-08-2022 RBC (Bld) [#/Vol] 4.66 10*6/uL 4.2-5.4 [facility] Work Phone: Blood hemoglobin measurement (mass/volume)on 09-08-2022 Hemoglobin (Bld) [Mass/Vol] 12.6 g/dL 12.0-15.0 [facility] Work Phone: Blood lymphocytes/100 leukoc yteson 09-08-2022 Lymphocytes/100 WBC (Bld) 43.1 % 19-41 [facility] Work Phone: Blood monocytes/100 leukocyt eson 09-08-2022 Monocytes/100 WBC (Bld) 6.2 % 0-10 [facility] Work Phone: Blood platelet mean volumeon 09-08-2022 Platelet mean volume (Bld) [Entitic vol] 10.5 fL 6.2-12.0 [facility] Work Phone: Determination of erythrocyte mean corpuscular volume (MCV)on 09-08-2022 MCV (RBC) [Entitic vol] 85.4 fL 81-99 [facility] [facility] Work Phone: Glucose Glucometer (BldC) [M ass/Vol]on 09-08-2022 Glucose [Mass/Vol] 80 mg/dL 74-106 [facility] Work Phone: Comment on above: MANAGEMENT OF PATIEN T CARE PER NURSING PROTOCOL Hematocrit Auto (Bld) [Volum e fraction]on 09-08-2022 Hematocrit (Bld) [Volume fraction] 39.8 % 37-47 [facility] Work Phone: Laboratory - Chemistry and C hemistry - challengeon 09-08-2022 ALP [Catalytic activity/Vol] 67 U/L 45-117 [facility] Work Phone: ALT [Catalytic activity/Vol] 30 U/L 13-56 [facility] Work Phone: CO2 [Moles/Vol] 24.0 mmol/L 21.0-32.0 [facility] Work Phone: Globulin (S) [Mass/Vol] 2.5 g/dL 2.2-4.2 [facility] Work Phone: Urea nitrogen/Creatinine [Mass ratio] 45.3 mg/mg 10-20 [facility] Work Phone: Laboratory - Hematology and Cell countson 09-08-2022 Erythrocyte distribution width (RBC) [Entitic vol] 43.7 fL 35.1-43.9 [facility] Work Phone: Erythrocyte distribution width (RBC) [Ratio] 14.1 % 11.6-14.6 [facility] Work Phone: Immature granulocytes/100 WBC (Bld) 0.400 % 0.0-0.9 [facility] Work Phone: Comment on above: IG% - Immature Granu locytes (promyelocytes, myelocytes and metamyelocytes) > 1% indicates that a LEFT SHIFT is Present. MCH (RBC) [Entitic mass] 27.0 pg 27.0-32.0 [facility] Work Phone: Nucleated RBC/100 WBC (Bld) [Ratio] 0 % 0-5 [facility] Work Phone: MCHC Auto (RBC) [Mass/Vol]on 09-08-2022 MCHC (RBC) [Mass/Vol] 31.7 g/dL 32-36 [facility] Work Phone: No Panel Informationon 09-08 Estimated Creatinine Clearance Calc 163.43 ml/min [facility] Work Phone: Estimated GFR (MDRD) Amer 175 mL/min >60 [facility] Work Phone: Comment on above: GFR Calc Estimated GFR (MDRD) Non-Af Amer 144 mL/min >60 [facility] Work Phone: Comment on above: Non- GFR Calc Platelets bldon 09-08-2022 Platelets (Bld) [#/Vol] 190 10*3/uL 150-450 [facility] Work Phone: Serum or plasma albumin faizan urement (mass/volume)on 09-08-2022 Albumin [Mass/Vol] 3.1 g/dL 3.2-5.0 [facility] Work Phone: Serum or plasma albumin/glob ulin mass ratioon 09-08-2022 Albumin/Globulin [Mass ratio] 1.2 {ratio} 0.9-2.4 [facility] Work Phone: Serum or plasma calcium faizan urement (mass/volume)on 09-08-2022 Calcium [Mass/Vol] 8.3 mg/dL 8.5-10.1 [facility] Work Phone: Serum or plasma creatinine m easurement (mass/volume)on 09-08-2022 Creatinine [Mass/Vol] 0.46 mg/dL 0.55-1.02 [facility] Work Phone: Comment on above: The validity of the calculated GFR & GFRAA in patients over 70 years has not been determined. Clinical correlation is essential. Serum or plasma urea nitroge n measurement (mass/volume)on 09-08-2022 Urea nitrogen [Mass/Vol] 21 mg/dL 7-18 [facility] Work Phone: Thin prep Papanicolaou smear with manual screeningon 09-08-2022 Thin prep Papanicolaou smear with manual screening 18 U/L 15-37 [facility] Work Phone: Thin prep Papanicolaou smear with manual screening 5 5-15 [facility] Work Phone: Absolute lymphocyte counton 09-07-2022 Lymphocytes Auto (Unsp spec) [#/Vol] 2.07 10*3/uL 0.83-4.51 [facility] Work Phone: Basophil percentageon 2021 Basophils/100 WBC (Bld) 0.6 % 0-1 [facility] Work Phone: Chloride [Moles/Vol] 112 mmol/L 98-107 [facility] Work Phone: Eosinophils/100 WBC (Bld) 2.7 % 0-5 [facility] Work Phone: Glucose [Mass/Vol] 140 mg/dL 74-106 [facility] Work Phone: Comment on above: Fasting Glucose resu lt greater than or equal to 126 mg/dL suggests DIABETES MELLITUS per A.D.A. criteria. Neutrophils (Bld) [#/Vol] 2.7 10*3/uL 2.0-7.7 [facility] Work Phone: Neutrophils/100 WBC (Bld) 51.4 % 47-70 [facility] Work Phone: Potassium [Moles/Vol] 3.8 mmol/L 3.5-5.1 [facility] Work Phone: Sodium [Moles/Vol] 141 mmol/L 136-145 [facility] Work Phone: WBC (Bld) [#/Vol] 5.3 10*3/uL 4.4-11.0 [facility] Work Phone: Blood erythrocytes count (nu mber/volume)on 09-07-2022 RBC (Bld) [#/Vol] 5.08 10*6/uL 4.2-5.4 [facility] Work Phone: Blood hemoglobin measurement (mass/volume)on 09-07-2022 Hemoglobin (Bld) [Mass/Vol] 13.9 g/dL 12.0-15.0 [facility] Work Phone: Blood lymphocytes/100 leukoc yteson 09-07-2022 Lymphocytes/100 WBC (Bld) 39.4 % 19-41 [facility] Work Phone: Blood monocytes/100 leukocyt eson 09-07-2022 Monocytes/100 WBC (Bld) 5.5 % 0-10 [facility] Work Phone: Blood platelet mean volumeon 09-07-2022 Platelet mean volume (Bld) [Entitic vol] 10.3 fL 6.2-12.0 [facility] Work Phone: Determination of erythrocyte mean corpuscular volume (MCV)on 09-07-2022 MCV (RBC) [Entitic vol] 85.2 fL 81-99 [facility] Work Phone: Hematocrit Auto (Bld) [Volum e fraction]on 09-07-2022 Hematocrit (Bld) [Volume fraction] 43.3 % 37-47 [facility] Work Phone: INR in Blood by Coagulation assayon 09-07-2022 INR Coag (Bld) [Relative time] 1.0 {INR} [facility] Work Phone: Laboratory - Chemistry and C hemistry - challengeon 09-07-2022 CO2 [Moles/Vol] 24.0 mmol/L 21.0-32.0 [facility] Work Phone: Urea nitrogen/Creatinine [Mass ratio] 39.5 mg/mg 10-20 [facility] Work Phone: Laboratory - Coagulationon 1 11-08-2021 aPTT Coag (Bld) [Time] 27.9 s 24.1-36.2 vonnie [facility] Work Phone: PT Coag (PPP) [Time] 13.1 s 11.7-14.9 [facility] Work Phone: Laboratory - Hematology and Cell countson 09-07-2022 Erythrocyte distribution width (RBC) [Entitic vol] 42.9 fL 35.1-43.9 [facility] Work Phone: Erythrocyte distribution width (RBC) [Ratio] 13.8 % 11.6-14.6 [facility] Work Phone: Immature granulocytes/100 WBC (Bld) 0.400 % 0.0-0.9 [facility] Work Phone: Comment on above: IG% - Immature Granu locytes (promyelocytes, myelocytes and metamyelocytes) > 1% indicates that a LEFT SHIFT is Present. MCH (RBC) [Entitic mass] 27.4 pg 27.0-32.0 [facility] Work Phone: Nucleated RBC/100 WBC (Bld) [Ratio] 0 % 0-5 [facility] Work Phone: MCHC Auto (RBC) [Mass/Vol]on 09-07-2022 MCHC (RBC) [Mass/Vol] 32.1 g/dL 32-36 [facility] Work Phone: No Panel Informationon 09-07 Troponin I High Sensitivity 120 pg/mL 3.0-54.0 [facility] Work Phone: Comment on above: Please Note: New Lorna t Units and Gender Specific Reference Ranges. For more information see Policy Stat Procedure [place] High Sensitivity Troponin (TNIH) and attachments. Troponin I High Sensitivity 118 pg/mL 3.0-54.0 [facility] Work Phone: Comment on above: Please Note: New Lorna t Units and Gender Specific Reference Ranges. For more information see Policy Stat Procedure [place] High Sensitivity Troponin (TNIH) and attachments. Estimated Creatinine Clearance Calc 127.25 ml/min [facility] Work Phone: Estimated GFR (MDRD) Amer 134 mL/min >60 [facility] Work Phone: Comment on above: GFR Calc Estimated GFR (MDRD) Non-Af Amer 111 mL/min >60 [facility] Work Phone: Comment on above: Non- GFR Calc Platelets bldon 09-07-2022 Platelets (Bld) [#/Vol] 207 10*3/uL 150-450 [facility] Work Phone: Serum or plasma calcium faizan urement (mass/volume)on 09-07-2022 Calcium [Mass/Vol] 8.8 mg/dL 8.5-10.1 [facility] Work Phone: Serum or plasma creatinine m easurement (mass/volume)on 09-07-2022 Creatinine [Mass/Vol] 0.58 mg/dL 0.55-1.02 [facility] Work Phone: Comment on above: The validity of the calculated GFR & GFRAA in patients over 70 years has not been determined. Clinical correlation is essential. Serum or plasma urea nitroge n measurement (mass/volume)on 09-07-2022 Urea nitrogen [Mass/Vol] 23 mg/dL 7-18 [facility] Work Phone: Thin prep Papanicolaou smear with manual screeningon 09-07-2022 Thin prep Papanicolaou smear with manual screening 5 5-15 [facility] Work Phone: XR Foot - right AP and Later breanne 08-11-2021 IMPRESSION: No acute osseous abnormality identified. Tool Repairer: [email or web address] Transcribe Date/Time: Aug 11 2021 2:21P Dictated by : SUJATA MERAZ MD This examination was interpreted and the report reviewed and electronically signed by: SUJATA MERAZ MD on Aug 11 2021 2:24PM EST DIVISION OF RADIOLOGY * * *Final Report* [...] abnormality identified. DIVISION OF RADIOLOGY Provider, Adenike Gilbert [facility] - 08/11/2021 * * *Final Report* * [...] IMPRESSION IMPRESSION: No acute osseous abnormality identified. Tool Repairer: PSCB Transcribe Date/Time: Aug 11 2021 2:21P Dictated by : SUJATA MERAZ MD This examination was interpreted and the report reviewed and electronically signed by: SUJATA MERAZ MD on Aug 11 2021 2:24PM EST [facility] Radiology Study observation (narrative) Denise Villa XR Foot - right AP and Later alOrdered By: [facility] Provider on 08-11-2021 [facility] COVID-19 virus antigen assay SARS-CoV-2 (COVID-19) Ag IA.rapid Ql (Resp) [facility] Work Phone: Vital Signs Date Time Vital Sign Value Performing Clinician Facility 05-13-2025 14:50-0400 Body temperature 97.8 [degF] Yenny Kauffman [employer] Work Phone: 9(642)741-915395 [place] [address] 05-13-2025 14:50-0400 Diastolic blood pressure 67 mm[Hg] Yenny Kauffman [employer] Work Phone: 0(328)345-314095 [place] [address] 05-13-2025 14:50-0400 Heart rate 72 /min Yenny Kauffman [employer] Work Phone: 4(472)556-062895 [place] [address] 05-13-2025 14:50-0400 Respiratory rate 16 /min Yennyjuan Kauffman [employer] Work Phone: 5(204)972-321295 [place] [address] 05-13-2025 14:50-0400 SaO2% (BldA) [Mass fraction] 97 % Yenny Kauffman [employer] Work Phone: 1(106)396-188995 [place] [address] 05-13-2025 14:50-0400 Systolic blood pressure 112 mm[Hg] Yenny Kauffman [employer] Work Phone: 8(317)175-023795 [place] [address] 05-13-2025 13:44-0400 Body weight 87 kg Yenny Kauffman [employer] Work Phone: 3(344)421-091595 [place] [address] 05-09-2025 09:50-0400 Body mass index (BMI) [Ratio] 43.2 kg/m2 Yenny Kauffman [employer] Work Phone: 6(580)408-292095 [place] [address] 05-09-2025 09:50-0400 Body temperature 97.3 [degF] Yenny Kauffman [employer] Work Phone: 3(672)216-407895 [place] [address] 05-09-2025 09:50-0400 Body weight 87.54 kg Yenny Kauffman [employer] Work Phone: 0(749)007-107895 [place] [address] 05-09-2025 09:50-0400 Diastolic blood pressure 83 mm[Hg] Yenny Kauffman [employer] Work Phone: 4(899)002-210295 [place] [address] 05-09-2025 09:50-0400 Heart rate 95 /min Yenny Kauffman [employer] Work Phone: 2(339)215-222095 [place] [address] 05-09-2025 09:50-0400 Respiratory rate 20 /min Yenny Kauffman [employer] Work Phone: 1(421)158-506222 [place] [address] 05-09-2025 09:50-0400 SaO2% (BldA) [Mass fraction] 96 % Yennyjorge luis aKuffman [employer] Work Phone: 9(858)900-665895 [place] [address] 05-09-2025 09:50-0400 Systolic blood pressure 126 mm[Hg] Yenny Kauffman [employer] Work Phone: 2(428)201-054695 [place] [address] 04-13-2025 12:56-0400 Body temperature 97.9 [degF] Yenny Kauffman [employer] Work Phone: 7(591)654-256195 [place] [address] 04-13-2025 12:56-0400 Diastolic blood pressure 96 mm[Hg] Yenny Kauffman [employer] Work Phone: 7(758)144-080095 [place] [address] 04-13-2025 12:56-0400 Heart rate 75 /min Yenny Kauffman [employer] Work Phone: 3(485)493-282795 [place] [address] 04-13-2025 12:56-0400 Respiratory rate 16 /min Yennyjuan Kauffman [employer] Work Phone: 4(807)961-058895 [place] [address] 04-13-2025 12:56-0400 SaO2% (BldA) [Mass fraction] 97 % Yennyjuan Kauffman [employer] Work Phone: 4(250)137-055995 [place] [address] 04-13-2025 12:56-0400 Systolic blood pressure 144 mm[Hg] Yenny Kauffman [employer] Work Phone: 4(232)574-350395 [place] [address] 04-13-2025 11:56-0400 Body height 142.24 cm Yenny Kauffman [employer] Work Phone: 7(842)543-833795 [place] [address] 04-13-2025 11:56-0400 Body mass index (BMI) [Ratio] 43.4 kg/m2 Yenny Kauffman [employer] Work Phone: 7(053)052-850795 [place] [address] 04-13-2025 11:56-0400 Body weight 87.99 kg Yenny Kauffman [employer] Work Phone: 5(447)319-845695 [place] [address] 03-25-2025 14:32-0400 Body height 142.24 cm Yenny Kauffman [employer] Work Phone: 7(620)333-629922 [place] [address] 02-07-2025 08:05-0400 Body height 142.24 cm Yenny Kauffman [employer] Work Phone: 6(634)921-835195 [place] [address] 02-07-2025 08:05-0400 Body mass index (BMI) [Ratio] 43.2 kg/m2 Yenny Kauffman [employer] Work Phone: 5(710)675-714895 [place] [address] 02-07-2025 08:05-0400 Body temperature 97.3 [degF] Yenny Kauffman [employer] Work Phone: 1(993)712-205295 [place] [address] 02-07-2025 08:05-0400 Body weight 87.54 kg Yenny Kauffman [employer] Work Phone: 6(542)199-433995 [place] [address] 02-07-2025 08:05-0400 Diastolic blood pressure 89 mm[Hg] Yenny Kauffman [employer] Work Phone: 3(466)091-439195 [place] [address] 02-07-2025 08:05-0400 Heart rate 88 /min Yenny Kauffman [employer] Work Phone: 7(336)784-304695 [place] [address] 02-07-2025 08:05-0400 Respiratory rate 20 /min Yenny Kauffman [employer] Work Phone: 9(127)242-456195 [place] [address] 02-07-2025 08:05-0400 SaO2% (BldA) [Mass fraction] 96 % Yenny Kauffman [employer] Work Phone: 3(823)844-242895 [place] [address] 02-07-2025 08:05-0400 Systolic blood pressure 145 mm[Hg] Yenny Kauffman [employer] Work Phone: 8(252)645-849495 [place] [address] 12-04-2023 14:05-0500 Body height 142.2 cm Pacc 1 Work Phone: [facility] 12-04-2023 14:05-0500 Body temperature 97.11 [degF] Pacc 1 Work Phone: [facility] 12-04-2023 14:05-0500 Body weight 86.64 kg Pacc 1 Work Phone: [facility] 12-04-2023 14:05-0500 Diastolic blood pressure 64 mm[Hg] Pacc 1 Work Phone: [facility] 12-04-2023 14:05-0500 Heart rate 84 /min Pacc 1 Work Phone: [facility] 12-04-2023 14:05-0500 Respiratory rate 16 /min Pacc 1 Work Phone: [facility] 12-04-2023 14:05-0500 SaO2% (BldA) [Mass fraction] 96 % Pacc 1 Work Phone: [facility] 12-04-2023 14:05-0500 Systolic blood pressure 122 mm[Hg] Pacc 1 Work Phone: [facility] 05-13-2023 09:44-0400 Body height 142.24 cm [facility] Work Phone: 1(294)410-160095 [place] [address] 05-13-2023 09:44-0400 Body mass index (BMI) [Ratio] 43 kg/m2 [facility] Work Phone: 9(918)374-244495 [place] [address] 05-13-2023 09:44-0400 Body temperature 97.9 [degF] [facility] Work Phone: 8(388)613-440295 [place] [address] 05-13-2023 09:44-0400 Body weight 87.08 kg [facility] Work Phone: 9(802)218-731495 [place] [address] 05-13-2023 09:44-0400 Diastolic blood pressure 85 mm[Hg] [facility] Work Phone: 0(271)444-402795 [place] [address] 05-13-2023 09:44-0400 Heart rate 88 /min [facility] Work Phone: 3(431)438-776195 [place] [address] 05-13-2023 09:44-0400 Respiratory rate 18 /min [facility] Work Phone: 4(950)567-453295 [place] [address] 05-13-2023 09:44-0400 SaO2% (BldA) [Mass fraction] 96 % [facility] Work Phone: 5(599)707-786395 [place] [address] 05-13-2023 09:44-0400 Systolic blood pressure 118 mm[Hg] [facility] Work Phone: 6(027)769-286695 [place] [address] 03-15-2023 15:06-0400 Body mass index (BMI) [Ratio] 42.8 kg/m2 [facility] Work Phone: 8(165)028-166495 [place] [address] 03-15-2023 15:06-0400 Body weight 86.[address] [facility] Work Phone: 3(709)488-442495 [place] [address] 03-15-2023 15:06-0400 Diastolic blood pressure 76 mm[Hg] [facility] Work Phone: 8(508)809-258395 [place] [address] 03-15-2023 15:06-0400 Heart rate 63 /min [facility] Work Phone: 6(884)409-940795 [place] [address] 03-15-2023 15:06-0400 SaO2% (BldA) [Mass fraction] 96 % [facility] Work Phone: 9(424)735-991195 [place] [address] 03-15-2023 15:06-0400 Systolic blood pressure 112 mm[Hg] [facility] Work Phone: 6(967)940-336695 [place] [address] 02-07-2023 09:38-0400 Body height 142.24 cm [facility] Work Phone: 7(859)485-314295 [place] [address] 02-07-2023 09:38-0400 Body mass index (BMI) [Ratio] 42.3 kg/m2 [facility] Work Phone: 7(932)768-511895 [place] [address] 02-07-2023 09:38-0400 Body temperature 97.6 [degF] [facility] Work Phone: 7(448)209-051995 [place] [address] 02-07-2023 09:38-0400 Body weight 85.72 kg [facility] Work Phone: 4(875)167-865595 [place] [address] 02-07-2023 09:38-0400 Diastolic blood pressure 74 mm[Hg] [facility] Work Phone: 1(009)355-300595 [place] [address] 02-07-2023 09:38-0400 Heart rate 79 /min [facility] Work Phone: 6(025)607-615995 [place] [address] 02-07-2023 09:38-0400 Respiratory rate 18 /min [facility] Work Phone: 7(127)863-601695 [place] [address] 02-07-2023 09:38-0400 SaO2% (BldA) [Mass fraction] 96 % [facility] Work Phone: 0(753)689-548095 [place] [address] 02-07-2023 09:38-0400 Systolic blood pressure 111 mm[Hg] [facility] Work Phone: 0(332)326-167095 [place] [address] 01-21-2023 09:53-0400 Diastolic blood pressure 100 mm[Hg] [facility] Work Phone: 2(390)904-826795 [place] [address] 01-21-2023 09:53-0400 Heart rate 75 /min [facility] Work Phone: 5(254)806-544395 [place] [address] 01-21-2023 09:53-0400 Systolic blood pressure 148 mm[Hg] [facility] Work Phone: 3(076)978-350795 [place] [address] 01-21-2023 09:52-0400 Body temperature 97.6 [degF] [facility] Work Phone: 6(187)332-969595 [place] [address] 01-21-2023 09:52-0400 Respiratory rate 16 /min [facility] Work Phone: 0(132)397-314695 [place] [address] 01-21-2023 09:52-0400 SaO2% (BldA) [Mass fraction] 99 % [facility] Work Phone: 4(390)695-330795 [place] [address] 01-21-2023 06:00-0400 Body mass index (BMI) [Ratio] 43.4 kg/m2 [facility] Work Phone: 5(123)284-937895 [place] [address] 01-21-2023 06:00-0400 Body weight 88 kg [facility] Work Phone: 8(808)352-985895 [place] [address] 01-20-2023 15:53-0400 Body height 142.24 cm [facility] Work Phone: 7(145)139-537895 [place] [address] 01-20-2023 15:16-0400 Body temperature 97.6 [degF] [facility] 01-20-2023 15:16-0400 Diastolic blood pressure 100 mm[Hg] [facility] 01-20-2023 15:16-0400 Heart rate 80 /min [facility] 01-20-2023 15:16-0400 Respiratory rate 18 /min [facility] 01-20-2023 15:16-0400 SaO2% (BldA) [Mass fraction] 98 % [facility] 01-20-2023 15:16-0400 Systolic blood pressure 120 mm[Hg] [facility] 01-20-2023 12:22-0400 Body height 142.24 cm [facility] 01-20-2023 12:22-0400 Body mass index (BMI) [Ratio] 43 kg/m2 [facility] 01-20-2023 12:22-0400 Body weight 87.08 kg [facility] 09-08-2022 12:19-0500 Body temperature 98.5 [degF] [facility] Work Phone: [facility] Work Phone: 09-08-2022 12:19-0500 Diastolic blood pressure 78 mm[Hg] [facility] Work Phone: [facility] Work Phone: 09-08-2022 12:19-0500 Heart rate 84 /min [facility] Work Phone: [facility] Work Phone: 09-08-2022 12:19-0500 Respiratory rate 14 /min [facility] Work Phone: [facility] Work Phone: 09-08-2022 12:19-0500 SaO2% (BldA) [Mass fraction] 97 % [facility] Work Phone: [facility] Work Phone: 09-08-2022 12:19-0500 Systolic blood pressure 137 mm[Hg] [facility] Work Phone: [facility] Work Phone: 09-08-2022 06:00-0500 Body weight 82.7 kg [facility] Work Phone: [facility] Work Phone: 09-07-2022 16:21-0500 Body height 142.24 cm [facility] Work Phone: [facility] Work Phone: 09-07-2022 16:21-0500 Body mass index (BMI) [Ratio] 39.2 kg/m2 [facility] Work Phone: [facility] Work Phone: 09-07-2022 13:02-0500 Body height 142.24 cm [facility] Work Phone: 09-07-2022 13:02-0500 Body mass index (BMI) [Ratio] 40.1 kg/m2 [facility] Work Phone: 09-07-2022 13:02-0500 Body temperature 98 [degF] [facility] Work Phone: 09-07-2022 13:02-0500 Body weight 81.19 kg [facility] Work Phone: 09-07-2022 13:02-0500 Diastolic blood pressure 78 mm[Hg] [facility] Work Phone: 09-07-2022 13:02-0500 Heart rate 87 /min [facility] Work Phone: 09-07-2022 13:02-0500 Respiratory rate 16 /min [facility] Work Phone: 09-07-2022 13:02-0500 SaO2% (BldA) [Mass fraction] 96 % [facility] Work Phone: 09-07-2022 13:02-0500 Systolic blood pressure 132 mm[Hg] [facility] Work Phone: Encounters Encounter Date Encounter Type Care Provider Facility Start: 05-29-2025 End: 05-29-2025 Patient encounter procedure Hermila BURTON -[facility] Work Phone: Start: 05-29-2025 End: 05-29-2025 ambulatory Yennyjuan Kauffman PARKING METER ATTENDANT-C Work Phone: -[facility] Start: 05-13-2025 Non-patient / Non-visit Bob Mcdowell nd DO -[facility] Start: 05-13-2025 End: 05-13-2025 Admission to same day surgery center Bob Dueñas DO -Endoscopy Work Phone: Start: 05-13-2025 End: 05-13-2025 ambulatory Yenny Jamari PARKING METER ATTENDANT-C Work Phone: -Endoscopy Start: 05-09-2025 End: 05-09-2025 Patient encounter procedure PARKING METER ATTENDANT Dolores Hunt -[facility] Work Phone: Start: 05-09-2025 End: 05-09-2025 ambulatory Yenny Kauffman PARKING METER ATTENDANT-C Work Phone: -[facility] Start: 05-02-2025 End: 05-02-2025 ambulatory Yennyjuan Kauffman PARKING METER ATTENDANT-C Work Phone: -Cardiovascular Services Start: 05-02-2025 End: 05-02-2025 Patient encounter procedure VSC Yenny Kauffman PARKING METER ATTENDANT-C -Cardiovascular Services Work Phone: Start: 05-02-2025 End: 05-02-2025 ambulatory Yenny Kauffman VSC Facility:[facility] Start: 04-15-2025 End: 04-15-2025 ambulatory Yenny Kauffman PARKING METER ATTENDANT-C Work Phone: -Laboratory Yes[facility] Smith Start: 04-15-2025 End: 04-15-2025 Patient encounter procedure VSC Yennyjuan Kauffman PARKING METER ATTENDANT-C -Laboratory [facility] Start: 04-15-2025 End: 04-15-2025 ambulatory Yenny Kauffman VSC Facility:[facility] Start: 04-13-2025 End: 04-13-2025 Emergency department patient visit Yennyjuan Kauffman PARKING METER ATTENDANT-C Work Phone: -Emergency Department Work Phone: Start: 04-10-2025 End: 04-10-2025 ambulatory Yenny Jamari PARKING METER ATTENDANT-C Work Phone: -Nuclear Medicine [facility] Start: 04-10-2025 End: 04-10-2025 Patient encounter procedure Jennie Gutierrez PARKING METER ATTENDANT-C -Nuclear Medicine [facility] Work Phone: Start: 04-10-2025 End: 04-10-2025 ambulatory Yenny Jamari [facility] Facility:[facility] Start: 03-25-2025 End: 03-25-2025 Patient encounter procedure Jennie Gutierrez PARKING METER ATTENDANT-C -[facility] Work Phone: Start: 03-25-2025 End: 03-25-2025 ambulatory Yenny Jamari PARKING METER ATTENDANT-C Work Phone: [facility] Work Phone: Start: 03-21-2025 End: 03-21-2025 ambulatory Yenny Jamari PARKING METER ATTENDANT-C Work Phone: -Pulmonary Services/Neurology Start: 03-21-2025 End: 03-21-2025 Patient encounter procedure VADIM Hunt -Pulmonary Services/Neurology Work Phone: Start: 03-21-2025 End: 03-21-2025 ambulatory Dolores Hunt Facility:[facility] Start: 03-14-2025 End: 03-14-2025 ambulatory Yenny Jamari PARKING METER ATTENDANT-C Work Phone: [facility] Work Phone: Start: 03-14-2025 End: 03-14-2025 Patient encounter procedure [facility] Yenny Jamari PARKING METER ATTENDANT-C -Outpatient Breast Imaging Work Phone: Start: 03-14-2025 End: 03-14-2025 ambulatory Yenny Kauffman C Facility:[facility] Start: 02-25-2025 End: 02-25-2025 ambulatory Yenny Jamari PARKING METER ATTENDANT-C Work Phone: [facility] Work Phone: Start: 02-25-2025 End: 02-25-2025 Patient encounter procedure VADIM Hunt -Sleep Lab Work Phone: Start: 02-25-2025 End: 02-25-2025 ambulatory Dolores Hunt Facility:[facility] Start: 02-07-2025 End: 02-07-2025 Patient encounter procedure PARKING METER ATTENDANT Dolores Hunt -[facility] Work Phone: Start: 02-07-2025 End: 02-07-2025 ambulatory Dolores Hunt Facility:[facility] Start: 01-14-2025 End: 01-14-2025 Patient encounter procedure [facility] Yenny Kauffman PARKING METER ATTENDANT-C -Laboratory Yesica Smith Start: 01-14-2025 End: 01-14-2025 ambulatory Yenny Kauffman [facility] Facility:[facility] Start: 07-03-2024 End: 07-03-2024 ambulatory Luís BURTON Facility[facility] Start: 07-02-2024 End: 07-02-2024 ambulatory Martín BURTON Facility:[facility] Start: 06-18-2024 End: 06-18-2024 [facility] Start: 03-12-2024 End: 03-12-[address] INTERPRETER-PATIENT CARE TECHNICIAN Facility:[facility] Start: 03-12-2024 End: 03-12-2024 Patient encounter procedure YENNY KAUFFMAN APRN-PATIENT CARE TECHNICIAN [facility] Start: 12-22-2023 End: 12-22-2023 ambulatory YENNY KAUFFMAN Facility:[facility] Start: 12-22-2023 End: 12-22-2023 Patient encounter procedure Corby Power Work Phone: Podiatry Comment on above: Open wound of toe, i nitial encounter (Primary Dx) Start: 12-11-2023 Telephone encounter Corby Escobar Work Phone: Podiatry Comment on above: Patient Question Start: 12-08-2023 End: 12-08-2023 ambulatory CAYLA CHOWDHURY Facility:[facility] Start: 12-04-2023 End: 12-04-2023 Admission to establishment [facility] [place] [facility] Work Phone: [facility] Start: 12-04-2023 End: 12-04-2023 ambulatory [facility] [place] [facility] Work Phone: Pre Anesthesia Comment on above: Preoperative examina tion (Primary Dx); Chronic bronchitis with COPD (chronic obstructive pulmonary disease) (HCC); Fatty liver; Gastroesophageal reflux disease, unspecified whether esophagitis present; Valvular heart disease; Primary hypertension; Mixed hyperlipidemia; Morbidly obese (HCC) Start: 12-04-2023 End: 12-04-2023 Preprocedural examination done [facility] [place] [facility] Work Phone: [facility] Work Phone: Start: 11-14-2023 End: 11-14-2023 ambulatory [facility] Facility:[facility] Start: 11-13-2023 Telephone encounter Corby Escobar Work Phone: Podiatry Comment on above: Patient Update Start: 11-13-2023 End: 11-13-2023 ambulatory [facility] Facility:[facility] Start: 11-13-2023 End: 11-13-2023 Patient encounter procedure Corby Power Work Phone: Podiatry Comment on above: Onychomycosis (Prima ry Dx) Start: 09-08-2023 End: 09-08-2023 ambulatory [facility] Facility:[facility] Start: 08-15-2023 End: 08-15-2023 ambulatory [facility] Facility:[facility] Start: 08-15-2023 End: 08-15-2023 Patient encounter procedure Corby Power Work Phone: Podiatry Comment on above: Onychomycosis (Prima ry Dx); Diminished pulses in lower extremity; Pain in toe of left foot; Pain in toe of right foot Start: 05-13-2023 End: 05-13-2023 Emergency department patient visit [facility] Work Phone: [facility]-Emergency Department Work Phone: Start: 03-15-2023 End: 03-15-2023 Patient encounter procedure [facility] Work Phone: [facility] Work Phone: Start: 03-08-2023 End: 03-08-2023 Patient encounter procedure TED KIM PATIENT CARE TECHNICIAN [facility] Start: 02-08-2023 End: 02-08-2023 ambulatory [facility] Work Phone: [facility] Work Phone: Start: 02-08-2023 End: 02-08-2023 Patient encounter procedure [facility] Work Phone: [facility]-Pulmonary Services/Neurology Start: 02-07-2023 End: 02-07-2023 Patient encounter procedure [facility] Work Phone: [facility]-Pulmonary Medicine [facility] Start: 01-21-2023 Non-patient / Non-visit [facility] Work Phone: [facility] Inpatient Physicians Start: 01-21-2023 Non-patient / Non-visit [facility] Work Phone: [facility] Start: 01-20-2023 End: 01-20-2023 Non-patient / Non-visit [facility] Work Phone: [facility] Heart Group Start: 01-20-2023 End: 01-21-2023 Evaluation and management of inpatient [facility]-Progressive Care Unit Start: 01-20-2023 End: 01-21-2023 observation encounter [facility] Work Phone: [facility] Work Phone: Start: 09-08-2022 Non-patient / Non-visit [facility] Work Phone: [facility] Start: 09-07-2022 Non-patient / Non-visit [facility] Work Phone: [facility] Start: 09-07-2022 Non-patient / Non-visit [facility] Work Phone: [facility] Inpatient Physicians Start: 09-07-2022 End: 09-08-2022 Evaluation and management of inpatient [facility]-Progressive Care Unit Start: 02-03-2022 End: 02-03-2022 Patient encounter procedure [facility]-Outpatient Breast Imaging Start: 08-11-2021 End: 08-11-2021 Subsequent hospital visit by physician [facility] Work Phone: Radiology Procedures Date Procedure Procedure Detail Performing Clinician Start: 05-13-2025 Colonoscopy Yenny de anda NP-C Work Phone: Start: 04-15-2025 D-dimer assay, quantitative Yenny Kauffman NP-C Work Phone: Comment on above: NORMAL D-Dimer level (<0.50) indicates no DVT or PE. Start: 04-10-2025 Radionuclide gastric emptying study Yenny Kauffman NP-C Work Phone: Start: 03-14-2025 Screening mammography Blaine Kauffman NP-C Work Phone: Start: 03-26-2024 Lipid 1996 panel - S williams or Plasma [facility] [place] Work Phone: Start: 05-13-2023 Plain x-ray of elbow [facility] Work Phone: Start: 01-20-2023 Plain chest X-ray Start: 01-20-2023 CT of head without contrast Start: 01-17-2023 Lipid 1996 panel - S williams or Plasma Corby Power Work Phone: Start: 09-07-2022 Plain chest X-ray Start: 02-03-2022 Screening mammography Start: 08-11-2021 Radiologic examinati on foot 2 views [facility] Provider Start: 04-18-1982 Hysterectomy TED VALENCIA CNP H/O: hysterectomy H/O: hysterectomy [facility] Work Phone: Viral antigen assay Plan of Treatment Date Care Activity Detail Author Start: 03-26-2029 Lipid panel Lipid Screening [facility] Start: 02-14-2028 HPV Testing HPV Testing [facility] Start: 02-14-2028 Pap Testing Pap Testing [facility] Start: 02-14-2028 Screening for malign ant neoplasm of cervix [facility] Start: 01-18-2028 Lipid 1996 panel - S williams or Plasma Lipid Screening [facility] Start: 01-18-2028 Lipid panel Lipid Screening [facility] Start: 03-26-2027 Diabetes Screening Diabetes Screenin g [facility] Start: 01-17-2026 Diabetes Screening Diabetes Screenin g [facility] Start: 05-13-2025 Colonoscopy w/biopsy single/multiple COLONOSCOPY AND BIOPSY [facility] Start: 05-13-2025 Endoscopy upper smal l intestine w/biopsy SMALL BOWEL ENDOSCOPY/BIOPSY [facility] Start: 05-13-2025 Patient discharge [facility] Start: 04-13-2025 End: 04-13-2025 [facility] Start: 03-21-2025 Measurement of respiratory function [facility] Start: 12-03-2024 BP Controlled (<130/80) BP Controlle d (<130/80) [facility] Start: 06-02-2024 Covid-19 Vaccine () Covid-19 Vaccine () [facility] Start: 06-02-2024 Influenza vaccination Influenza Vacc ine (#1) [facility] Start: 2024 Advance Directive Discussion Advance Directive Discussion [facility] Start: 2024 Screening for osteoporosis Bone Density Screening [facility] Start: 02-26-2024 Urine microalbumin profile DTaP,Tdap,Td Vaccine (2 - Td or Tdap) [facility] Start: 10-02-2023 Depression Assessment Depression Ass essment [facility] Start: 06-02-2023 Covid-19 Vaccine ( season) Covid-19 Vaccine () [facility] Start: 06-02-2023 Influenza vaccination Influenza Vacc ine (#1) [facility] Start: 05-13-2023 Plain x-ray of hand Hand Min 3 Views [facility] Start: 05-13-2023 Radiologic examinati on of knee Knee 4 or More Views [facility] Start: 05-13-2023 XR Hand GE 3 Views [facility] Start: 05-13-2023 XR Knee GE 4 Views [facility] Start: 01-21-2023 Patient discharge [facility] Start: 01-20-2023 [facility] Start: 01-20-2023 Assessment of risk o f venous thromboembolism [facility] Start: 01-20-2023 Incentive spirometry [facility] Start: 01-20-2023 Insertion of cathete r into peripheral vein [facility] Start: 01-20-2023 Measuring intake and output [facility] Start: 01-20-2023 Oxygen therapy [facility] Start: 01-20-2023 Providing care accor ding to standard [facility] Start: 01-20-2023 Tobacco use cessatio n education [facility] Start: 01-20-2023 [facility] Start: 01-20-2023 Following clinical pathway protocol [facility] Start: 01-20-2023 Verification routine [facility] Start: 01-20-2023 Admission procedure [facility] Start: 01-20-2023 Troponin I measurement [facility] Start: 10-02-2022 Depression Assessment Depression [facility] Start: 09-08-2022 Patient discharge [facility] Work Phone: Start: 09-08-2022 Notification of physician [facility] Work Phone: Start: 09-08-2022 Patient education [facility] Work Phone: Start: 09-08-2022 Pulse taking [facility] Work Phone: Start: 09-08-2022 Taking patient vital signs [facility] Work Phone: Start: 09-08-2022 Wound care [facility] Work Phone: Start: 09-08-2022 [facility] Work Phone: Start: 09-07-2022 Catheterization of vein [facility] Work Phone: Start: 09-07-2022 Medication not administered [facility] Work Phone: Start: 09-07-2022 [facility] Work Phone: Start: 09-07-2022 Care regimes management [facility] Work Phone: Start: 09-07-2022 Notification of physician [facility] Work Phone: Start: 09-07-2022 Assessment of risk o f venous thromboembolism [facility] Work Phone: Start: 09-07-2022 Catheterization of vein [facility] Work Phone: Start: 09-07-2022 Incentive spirometry [facility] Work Phone: Start: 09-07-2022 Insertion of cathete r into peripheral vein [facility] Work Phone: Start: 09-07-2022 Measuring intake and output [facility] Work Phone: Start: 09-07-2022 Providing care accor ding to standard [facility] Work Phone: Start: 09-07-2022 Provision of activit y privileges [facility] Work Phone: Start: 09-07-2022 Referral to professor of kinesiology [facility] Work Phone: Start: 09-07-2022 End: 09-07-2022 [facility] Work Phone: Start: 09-07-2022 End: 09-07-2022 Following clinical pathway protocol [facility] Work Phone: Start: 09-07-2022 Admission procedure [facility] Work Phone: Start: 09-07-2022 [facility] Work Phone: Start: 09-07-2022 [facility] Work Phone: Start: 2019 RSV Vaccine (1 - 1-d ose 60+ series) RSV Vaccine (1 - 1-dose 60+ series) [facility] Start: 2019 RSV Vaccine (1 - Ris k 60-74 years 1-dose series) RSV Vaccine (1 - Risk 60-74 years 1-dose series) [facility] Start: 04-23-2016 Pneumococcal vaccination Pneum ococcal Vaccine (2 of 2 - PCV) [facility] Start: 04-23-2016 Pneumococcal Vaccine : 65+ (2 of 2 - PCV) Pneumococcal Vaccine: 65+ (2 of 2 - PCV) [facility] Start: 2009 Shingrix Vaccine (1 of 2) Kirk grix Vaccine (1 of 2) [facility] Start: 2004 Cologuard (FIT-DNA) Cologuard (FIT-D NA) [facility] Start: 2004 Colonoscopy Colonoscopy [facility] Start: 2004 Colorectal Cancer Screening Colorectal Cancer Screening [facility] Start: [address] Colonography [facility] Start: 2004 Fecal Occult Blood Fecal Occult Bloo d [facility] Start: 2004 Screening for malign ant neoplasm of colon [facility] Start: 2004 Sigmoidoscopy Sigmoidoscopy [facility] Start: 1999 Mammography Mammogram Screening [facility] Start: 1999 Screening for malign ant neoplasm of breast Mammogram Screening [facility] Start: 1989 Zoledronic acid therapy Alpha- 1 Antitrypsin Deficiency Screening [facility] Start: 1977 Annual PCP Team [employer] rosalba Disease Visit Annual PCP Team Chronic Disease Visit [facility] Start: 1977 Anxiety Screening Anxiety Screening [facility] Start: 1977 BP Controlled (<130/80) BP Controlle d (<130/80) [facility] Start: 1977 Depression Screening Depression Scre ening [facility] Start: 1977 Hepatitis C Screening Hepatitis C [facility] Start: 1977 Hepatitis C screening Hepatitis C [facility] Start: 1977 HIV Screening HIV Screening [facility] Start: 1977 HIV screening HIV Screening [facility] Start: 1977 Spirometry Spirometry [facility] Start: 1959 Covid-19 Vaccine (#1) Covid-19 Vacci ne (#1) [facility] Measurement of respiratory function [facility] Patient Education [facility] Work Phone: Patient referral [facility] Work Phone: Polysomnography [facility] End: 08-15-2024 PVR [facility] Vascular Lab Routine Diminished pulses in lower extremity Onychomycosis 1 Occurrences starting 08/15/2023 until 08/15/2024 [facility] Work Phone: Comment on above: 1 Occurrences starti ng 08/15/2023 until 08/15/2024 Radionuclide gastric emptying study [facility] [place] Immunizations Immunization Date Immunization Notes Care Provider Fa wendy 09-08-2022 influenza, injectabl e, quadrivalent, preservative free Yenny Kauffman PARKING METER ATTENDANT-C Work Phone: [facility] 09-08-2022 influenza, seasonal, injectable [facility] Work Phone: [facility] 09-08-2022 influenza virus vaccine, unspecified formulation Corby Power Work Phone: [facility] Payers Date Payer Category Payer Self-pay [id number] 2025 Self-pay [id number] 2025 Self-pay [id number] 2024 Unknown [id number] 2024 Unknown [id number] 2024 Self-pay [id number] 2024 Unknown [id number] 2014 Medicaid [id number] 1959 Unknown [id number] 2.16.8 [id number] Unknown [id number] Unknown [id number] 2.16.8 [id number] Unknown [id number] 2.16.8 [id number] Unknown [id number] 2.16.8 [id number] Unknown [id number] 2.16.8 [id number] Unknown [id number] 2.16.8 [id number] Unknown [id number] 2.16.8 [id number] Unknown [id number] 2.16.8 [id number] Unknown [id number] 2.16.8 [id number] Unknown [id number] 2.16.8 [id number] Unknown [id number] 2.16.8 [id number] Unknown [id number] 2.16.8 [id number] Unknown [id number] 2.16.8 [id number] Unknown [id number] 2.16.8 [id number] Unknown [id number] 2.16.8 [id number] Unknown [id number] 2.16.8 [id number] Unknown [id number] 2.16.8 [id number] Unknown [id number] 2.16.8 [id number] Unknown [id number] 2.16.8 [id number] Social History Date Type Detail Facility Start: 11-25-2020 End: 05-13-2023 Tobacco smoking status NJIS Unknown if ever smoked [facility] Start: 11-25-2020 None [facility] Start: 11-25-2020 Spouse/ Signif icant Other [facility] Start: 1960 Sex Assigned At Female W [facility] Start: 12-04-2023 End: 05-09-2025 Tobacco smoking status Ex-smoker (finding) [facility] Start: 09-03-2021 Tobacco smoking status NHIS Never smoked tobacco [facility] Work Phone: Start: 09-03-2021 End: 12-04-2023 Tobacco use and exposure Smokeless tobacco non-user [facility] Work Phone: Start: 01-25-2009 End: 08-15-2023 Alcohol intake Current non-drinker of alcohol (finding) [facility] Start: 06-02-2021 End: 08-15-2023 History of Social function [facility] Start: 06-02-2021 End: 08-15-2023 Tobacco use panel [facility] National Score (1-100), lower number is lower risk 91 [facility] Start: 1960 Sex Assigned At Not on file C [facility] Start: 1975 End: 10-02-2003 History of tobacco use Current smoker [facility] Work Phone: Start: 1975 End: 10-02-2003 History of tobacco use Cigarette Smoker [facility] Work Phone: Goals Date Patient Goal Desired Activity /State Functional Status Date Assessment Result Facility 01-21-2023 Functional status Ambulates;Up ad adrianne Min ster [facility] Work Phone: 09-08-2022 Functional status Ambulates;Bedrest [place] [facility] Work Phone: 09-08-2022 Functional status None [facility] Work Phone: Mental Status Date Assessment Result Facility 05-13-2025 Cognitive function Touch/Shaking [facility] Work Phone: 04-13-2025 Cognitive function Level Of Cons ciousness Awake;Alert;Appropriate;Follow s Commands [facility] Work Phone: 01-21-2023 Cognitive function Voice/Name [facility] Work Phone: 01-20-2023 Cognitive function Level Of Cons ciousness Awake;Alert;Appropriate;Follow s Commands [facility] Work Phone: 09-08-2022 Cognitive function Voice/Name [facility] Work Phone: 09-07-2022 Cognitive function Level Of Cons ciousness Awake;Alert;Appropriate [facility] Work Phone: Clinical Notes 08-11-2021 to 05-13-2025 Note Date & Type Note Facility 05-13-2025 Consult note [facility] [facility] 05[facility]25 Procedure note [facility] 05-13-2025 Procedure note [facility] 05-13-2025 Procedure note [facility] 05-13-2025 Procedure note [facility] 05-13-2025 Consult note [facility] 05-13-2025 Consult note [facility] 05-13-2025 History and physi aidee note [facility] 05-13-2025 Note [facility] Medical Records Department [address] [place] [address] History Physical Exam 05/13/25 1349 MR#: [id number] Acct: [id number] Name: BRANDI SAUCEDA Rep #: [id number] : 1960 64 From: Bob Dueñas DO PCP: Yenny Kauffman, [facility], PARKING METER ATTENDANT-C Status:[facility] [place]14-1 HPI - General General Date of Admission: 05/13/25 Date of Service: 05/13/25 Chief Complaint: abdominal/chest/epigastric pain HPI Narrative BRANDI SAUCEDA, is a 64 F who presents from pulmonology for upper abdominal/chest/epigastric pain/burning with sensation of food sticking and morning nausea with intermittent heartburn; PPI started with resolution of emesis. No health insurance making EGD cost prohibitive. Continue protonix, start sucralfate. OV 11.. PCP stopped Carafate. While taking Carafate she has a resolution of symptoms, with stop of Carafate she is now having nausea and upset stomach. PPI continues. Denies marijuana, cigarette and alcohol use. OV 4..24 pt reports daily N/V since her PCP took her off carafate. Pt reports that she occasionally has trouble swallowing. Pt reports that she has 3-4 formed bm per day. Pt continues taking pantoprazole.Continue pantoprazole 40 mg, ok to take it QAM to save costs, but can increase back to BID if needed. Add sucralfate bid for a month, GoodRx $15 at [facility]. f/u 2 mos 03.25. OV She reports being on pantoprazole daily and sucralfate but it's not working. She reports daily nausea, uses motion sickness medicine from OTC, and epigastric pain from heartburn. She denies emesis, difficulty swallowing, reflux, excess gas, constipation, diarrhea, hematochezia, and melena. She has difficulty chewing due to being edentulous. She states that she had seen a doctor at [facility] that recommended she have both an EGD and colonoscopy competed this year. [facility] Medical History Edentulism, complete Dietary restriction Non-smoker Right wrist sprain Contusion of right elbow Right shoulder strain Contusion of left knee Contusion of right knee SOURAV (obstructive sleep apnea) Chronic bronchitis Diabetes GERD (gastroesophageal reflux disease) COPD (chronic obstructive pulmonary disease) Hypertension Migraines Home Medications ???Medication ???Instructions ???Recorded ???Last Taken ???Type ergocalciferol (vitamin D2) 1,250 1 cap PO FR SUPPLEMENT 01/21/20 0 01/13/23 History mcg (50,000 unit) capsule montelukast 10 mg tablet 10 mg PO DAILY@1700 ALLERGIES /10/2105/12/25 History ascorbic acid (vitamin C) 500 mg 500 mg PO DAILY vitamin 09/07/22 0 01/19/23 History tablet (Vitamin C) cyclobenzaprine 5 mg tablet 5 mg PO QHS pain 01/20/23 01/19/23 History atorvastatin 20 mg tablet 20 mg PO QHS #30 tabs 01/21/23 Unk nown Rx loratadine 10 mg tablet 10 mg PO DAILY@1700 PRN allergy 30 01/21/23 05/12/25 Rx days #0 tabs aspirin 81 mg tablet,delayed 81 mg PO DAILY 03/15/23 Unknown Hi story release sucralfate 1 gram tablet 1 g PO BID #60 tabs 01/29/2405/12 Rx fluticasone fur. 100 mcg-umeclid 1 ea inhalation QDAY 02/07/25 Unkn own History 62.5 mcg-vilant 25 mcg inhalat.powder (Trelegy Ellipta) fluticasone propionate 50 2 spray intranasal QHS 02/07/25 History mcg/actuation nasal spray,suspension ipratropium 0.5 mg-albuterol 3 mg 3 ml inhalation Q8 PRN wheezing 0 02/07/25 05/12/25 History (2.5 mg base)/3 mL nebulization soln lisinopril 20 mg tablet 20 mg PO QDAY 02/07/25 05/13/25 09 :00 History metformin 500 mg tablet,extended 500 mg PO QDAY 02/07/25 05/12/25 H istory release 24 hr metoprolol succinate 25 mg 25 mg PO QDAY 02/07/25 05/12/25 Hi story tablet,extended release 24 hr multivitamin 1 tab PO QDAY 02/07/25 05/12/25 Hi story nebulizers (Compact Compressor 02/07/25 Unknown History Nebulizer) triamcinolone acetonide 0.1 % 1 applic topical BID PRN itch 06/26 Unknown History topical cream famotidine 40 mg tablet 40 mg PO QHS #30 tabs 03/25/25 Unk nown Rx omeprazole 40 mg capsule,delayed 40 mg PO QDAY #30 caps 03/25/25 Rx release ondansetron HCl 4 mg tablet 4 mg PO Q8H PRN nausea and 5 05/12/25 Rx vomiting #30 tabs Allergy/AdvReac Type Severity Reaction Status Date / Time latex Allergy Intermediate Other Verified 05/09/25 13:03 aspirin Allergy Vomiting Verified 05/09/25 13:03 Family History Father Diabetes Surgical History History of mandibular surgery H/O shoulder surgery H/O: hysterectomy Social History Smoking Status: Former (more content not included)... [facility] 04-10-2025 Nuclear medicine Diagnostic study note [facility] Imaging Services [address] [place] [address] [id number] Gastric Emptying Study MR#: [id number] Acct: [id number] Name: BRANDI SAUCEDA ASHLEY Rep #: [id number] : 1960 F 64 From: Miguel Angel Lorenzo MD PCP: RONEY Reyes, PARKING METER ATTENDANT-C Status: REG CLI Study:Gastric Emptying Study Date of Exam: 04/10/25 Exam# [id number] Ordering Dr: Andre Gutierrez PARKING METER ATTENDANT-Cecil PROCEDURE: GASTRIC EMPTYING STUDY 04/10/2025 REASON FOR EXAM: FREQUENT NAUSEA TECHNIQUE: The patient ingested a semi solid meal of oatmeal. There was no vomiting postprandially. Anterior and posterior planar images of the upper abdomen were obtained for 60 minutes. Regions of interest were drawn, and a geometric mean was used to calculate a [id number]-hmrtf. Medications taken in the past 24 hours that may affect gastric emptying: None RADIOPHARMACEUTICAL: Technetium 99 M sulfur colloid DOSE 1.0mCi orally, with theoatmeal. FINDINGS: During the time of imaging, gastroesophageal reflux was not visualized. Linear fit gastric emptying half time of 45.65 minutes. Raw data gastric emptying half-time of 44.99 minutes. Gastric emptying at 18 minutes of 19%, at 30 minutes of 37%, at 48 minutes of 50%, and at 60 minutes of 62%. NM/Gastric Emptying Study IMPRESSION: Normal semi solid phase gastric emptying. Reading Location: [address] CC: FORREST Gutierrez; [facility] FORREST Kauffman ~ Tool Repairer: Signed [facility] 02-07-2025 Evaluation note Diagnosis Onset Date Resolution Chronic bronchitis chronic January 1:46pm SOURAV (obstructive sleep apnea) suspected February 07, 2025 1: 46pm [facility] Work Phone: 1(438) 602-290805-09-2025 Evaluation note* Diagnosis Onset Date Resolution Status Admit Date Chronic bronchitis chronic January 1:46pm SOURAV (obstructive sleep apnea) sus[facility] thiago February 07, 2025 1:46pm Nausea acute March 25 2:10pm Epigastric pain chronic March 2:10pm GERD (gastroesophageal reflu x disease) chronic March 25, 2025 2:10pm [facility] Work Phone: 1(594) 470-434405-09-2025 Evaluation note* Diagnosis Onset Date Resolution Status Admit Date Chronic bronchitis chronic January 1:46pm SOURAV (obstructive sleep apnea) sus[place] thiago February 07, 2025 1:46pm Nausea acute March 25 2:10pm Epigastric pain chronic March 2:10pm GERD (gastroesophageal reflu x disease) chronic March 25, 2025 2:10pm Chronic bronchitis chronic May 09, 2025 1:01pm SOURAV (obstructive sleep apnea) [facility] May 09, 2025 1:01pm [employer] [facility] Work Phone: 1(264) 725-640805-09-2025 Evaluation note* Diagnosis Onset Date Resolution Status Admit Date Chronic bronchitis chronic January 1:46pm SOURAV (obstructive sleep apnea) sus[place] thiago February 07, 2025 1:46pm Nausea acute [address], [address] 5 2:10pm Epigastric pain chronic March 2:10pm GERD (gastroesophageal reflu x disease) chronic March 25, 2025 2:10pm Chronic bronchitis chronic May 09, 2025 1:01pm SOURAV (obstructive sleep apnea) [facility] thiago May 09, 2025 1:01pm Nausea acute May 13, 2 025 1:16pm Epigastric pain chronic May 132024 1:16pm GERD (gastroesophageal reflu x disease) chronic May 13 1:16pm [facility] Work Phone: 1(879) 999-933306-11-2024 Note ORIGINAL FROM: [place] [address] [place] [id number] PROCEDURE FOR: BRANDI SAUCEDA [address] [place] [id number] Home: PID#: [id number] Exam#: [id number] : 1960 Age: 63 TO: YENNY KAUFFMAN [facility] [address] [phone] Fax: NO FAX EXAMINATION: SCREENING DIGITAL BILATERAL [...] addition to annual mammographic screening per the [employer]. BIRADS: MAMMOGRAM BI-RADS: 2: Benign finding RECALL: 1 year screening RECALL TYPE: mammo LETTER SENT: Normal BI-RADS 1 and 2 Interpreted by: Kitty Cruz Preliminary Report By: Kitty Cruz Electronically signed By Kitty Cruz Dictated Date: 03/12/2024 3:25:08 PM Prelim Date: 03/12/2024 3:40:01 PM Sign Date: 03/12/2024 3:40:01 PM Ordering Provider: YENNY KAUFFMAN Cylinder Press Feeder: WILFREDO ADAMS RT(R) RDMS letter sent: Normal BI-RADS 1 and 2 Mammogram BI-RADS: 2 [facility]03-22-2024 Instructions* Patient Instructions* Corby Power - 12/22/2023 11:04 AM EDT Your wound appears to be healing nicely Continue with soaking of the toes daily for the next 2-3 weeks or however long it takes for the toeto be completely healed Continue with topical antibiotic Corby Power DPM documented in [facility]Paul[facility]03-22-2024 NoteHNO ID: [id number] Author: CORBY POWER, ? Service: ? Author [...] (H) 4.3 - 5.6 % Final Comment: [employer] guidelines indicate that patients with [...] is very pleased with outcome Corby Power [facility]03-22-2024 History of Present illness Narrative* Corby [...] (H) 4.3 - 5.6 % Final Comment: [employer] guidelines indicate that patients with [...] with outcome Corby Power DPM * Juany Day, DONATO - 12/22/2023 10:41 AM EDT AMB ROOMING [...] Has been soaking them. documented in this encounterPaulding [facility] Hospital03-22-2024 NoteHNO ID: [id number] Author: JUANY DAY RN Service: ? Author [...] still some tenderness. Has been soaking them. [facility]03-11-2024 Miscellaneous Notes* Telephone Encounter - Indigo Smith LPN - 12/11/2023 1:40 PM EDT Images from the original note were not included. Corby Power [facility] Podiatry Pool 38 minutes ago (1:01 PM) I called patient. She is doing well. She is ok to return to work as scheduled Continue with local wound care Corby Power DPM * Telephone Encounter - Jeovanny Powell MA - 12/11/2023 12:13 PM EDT Pt calling to see when she can return to work. She is scheduled Monday. She works at [employer] and is on her feet the whole time. She was unsure of her restrictions. If she is able to return, she will need a note. Please review and advise. Jeovanny Powell MA documented in this encounterPaulding County Hospital03-04-2024 Instructions* Patient Instructions* Ramon Murguia APRN.PATIENT CARE TECHNICIAN - 12/04/2023 2:14 PM EST PATIENT PREOPERATIVE INSTRUCTIONS Corby Power DPM has scheduled you for your procedure at this surgery center: [facility]: [phone] -- [address] [facility] [address]. Please read below carefully for your personalized [...] Procedures: - YOU MUST HAVE A RESPONSIBLE TELECOM COORDINATOR TAKE YOU HOME. A WEB COMMUNICATIONS SPECIALIST OR MOUNTED POLICE CANNOT BE MADE A RESPONSIBLE TELECOM COORDINATOR. - We recommend that a responsible person stays with you overnight to take care of you. - You cannot stay in a hotel alone after outpatient surgery. You will not be permitted to have yoursurgery, if you do not have someone to take care of you. If you already have an Advance Directive, please fax a copy to [phone] or email to for it to be [...] day. Ramon Murguia APRN.CNP documented in this encounterPaulding County Hospital03-04-2024 History and physical note * Ramon [...] CAD, chest pain, CHF, DVT/PE and recent TX. GI: Positive for: GERD and liver disease Negative for: abdominal pain, dysphagia, diverticulitis, GI bleed <30 days, heartburn, hepatitis, irritable bowel syndrome, inflammatory bowel disease, nausea, vomiting and ETOH >2 drinks/day. : Negative for: dysuria, hematuria, nephrolithiasis and renal failure. ALLERGIST/MD: Negative for abnormal vaginal bleeding, abnormal vaginal [...] or any previous visit (from the past 13371 hour(s)). Instructions Given to Patient: Instructions located in the after visit summary. Patient given verbal and written preop instructions and voices comprehension and compliance. SIGNATURE: Ramon Murguia APRN.CNP PATIENT NAME: Brandi Sauceda DATE: December 04, 2023 TIME: 2:07 PM PAGER/CONTACT #: documented in this encounterPaulding County Hospital02-23-2024 Miscellaneous Notes* Telephone Encounter - Indigo Smith LPN - 11/24/2023 2:55 PM EST Patient presented to office on 11/13/2023 to discuss surgery and sign consent. Patient elected to schedule surgery for chemical matrixectomy, toes 1-5 b/l on 12/08/2023 at [facility]. Patient was provided with surgical packet including electronic and paper copy of surgical confirmation letter, and instruction on where to go at [facility]. All post op were scheduled with in office as well. Patient verbalized understanding of all instructions. Surgery scheduled in [facility]. Indigo Smith LPN * Telephone Encounter - Myrtle Villa RN - 11/14/2023 4:06 PM EST Patient called in stating that financial assistance said they would help with cost of surgery. She was told a fax was being sent to the office. Myrtle Villa RN * Telephone Encounter - Corby Power - 11/13/2023 9:26 AM EST Patient name: Brandi Sauceda* Type of surgery:chemical matrixectomy, toes 1-5 b/l CPT code:90801 Diagnosis: onychomycosis* Length of surgery:120 min In Flight Refueling Craftsman needed: none* Anesthesia: mac Special equipment: 30 phenol sticks documented in this encounterPaulding County Hospital02-12-2024 NoteHNO ID: [id number] Author: CORBY POWER, ? Service: ? Author [...] (H) 4.3 - 5.6 % Final Comment: [employer] guidelines indicate that patients with [...] unchanged from previous visit. Non-Invasive Vascular Laboratory [facility] Lower Extremity Arterial Physiology Study Bilateral/Complete Date [...] brachial index: 1.25 Right (more content not included)...[facility]02-12-2024 History of Present illness Narrative* Corby Power [...] (H) 4.3 - 5.6 % Final Comment: [employer] guidelines indicate that patients with [...] unchanged from previous visit. Non-Invasive Vascular Laboratory [facility] Lower Extremity Arterial Physiology Study Bilateral/Complete Date of service/time: 09/08/2023 12:22:58 PM Name: MRS. BRANDI SAUCDEA Date of : 1960 Age: 63 years [...] Normal at rest. Technologist: Fariha Cunningham [facility] Ordering physician: CORBY POWER Interpreting physician: MILLY [...] the nails in office. documented in this encounterPaulding County Hospital02-12-2024 NoteHNO ID: [id number] Author: JUANY DAY RN Service: ? Author [...] not normally remove all the nails in office.[facility]11-14-2023 Instructions* Patient Instructions* Corby Power - 08/15/2023 4:19 PM EST Powerstep Original Full length. Can purchase at [employer] here in [place], [employer] in [place] or [place]. Also can find in [employer] in [facility]. Powersteps can also be purchased online, [...] everything fits well together documented in this encounterPaulding County Hospital11-14-2023 NoteHNO ID: [id number] Author: Corby Power Service: ? Author Type: [...] ASSESSMENT: (B35.1) Onychomycosis (prima (more content not included)...[facility]11-14-2023 History of Present illness Narrative* Corby Power - 08/15/2023 4:04 PM EST Images from [...] . Corby Power DPM Podiatry [address] [facility] [address] Dept: [phone] Dept * Juany Day RN - 08/15/2023 [...] are thick and discolored. documented in this encounterPaulding County Hospital11-14-2023 NoteHNO ID: [id number] Author: Juany Day RN Service: ? Author [...] feet. States that nails are thick and discolored.[facility] 05-13-2023 Hospital Discharge instructions Additional Instructions 1. [...] may take Tylenol every 4-6 hours for pain.[facility] Work Phone: 1(500) 239-885404-22-[address] Sanchez [facility] January 21, 2023 1:18pm Note Date/Time January 21, 2023 8:0 0am [facility] Medical Records Department [address] [place] [address] Instructions for Home/Discharge Instructions 01/21/23 0759 MR#: [id number] Acct: [id number] Name: LILLY SAUCEDASanto RAMIREZ Rep #:[id number] : 1960 62 From: Michael Langston PCP: [facility] St atus:ADM LAWANDA Discharge Instructions Diet [...] Attending Provider: Michael Sanchez [facility] Instructions Additional Instructions / Restrictions: Patient [...] EGD for possible GERD/PUD/atypical noncardiac chest pain) [facility] - Disposition Disposition (needs filled in before D/C Order can be placed): Home, Self Care 01/21/23 4270<Electronically signed by Michael Sanchez MD>Michael Sanchez MD CC: [facility] ~ Signed [facility] Work Phone: 1(276) 906-403704-22-[address] Sanchez [facility] January 21, 2023 1:20pm Note Date/Time January 21, 2023 8:0 0am [facility] Medical Records Department [address] [place] [address] Discharge Summary 01/21/23 1320 MR#: [id number] Acct: [id number] Name: BRANDI SAUCEDA Rep #:[id number] : 1960 62 From: Micahel Langston PCP: [facility] St atus:ADM LAWANDA Location: [facility] [place] [address] Providers Date of Admission: 01/20/23 Date of Discharge: 01/21/23 Primary Care Physician: [facility] Reason For Visit: DIZZINESS AND CP Diagnosis [...] I discussed with the ED physician and professor of kinesiology.? Patient also had a stress test by outside professor of kinesiology a year ago and was normal.?? Stress [...] directive.? She does not endanger power of trial attorney for health.? Next of kin is her [...] % (Auto) 60.1, Lymph % (Auto) 31.1, Hooker % (Auto) 5.7, Eos % (Auto) 2.3, [...] Clarity Clear, Urine pH 7.0, Ur Specific [place] 1.015, Urine Protein Negative, Urine Glucose (UA) [...] 43.3 L, Lymph % (Auto) 45.0 H, Hooker % (Auto) 6.2, Eos % (Auto) 4.5, [...] Attending Provider: Michael Sanchez [facility] Instructions Additional Instructions / Restrictions: Patient [...] for possible GERD/PUD/atypical noncardiac chest pain) [facility] [place] [Primary Care Provider] - Disposition Disposition (needs filled in before D/C Order can be placed): Home, Self Care Charges/Coding Visit Charges Inpatient E&M: 29262 Disch Hosp >30min 01/21/23 1320 <Electronically signed by Michael Sanchez MD> Cosigner Signature (if applicable): CC: Dr. Michael Sanchez MD; [facility]~ Signed [facility] Work Phone: 1(129) 143-288304-21-[address] Cox [facility] January 20, 2023 4:38pm Note Date/Time January 20, 2023 12: 36pm [facility] Medical Records Department [address] [place] [address] Emergency Department Summary 01/20/23 MR#: [id number] Acct: [id number] Name: BRANDI SAUCEDA Rep #:[id number] : 1960 62 From: Ag Pollock [facility] atus:ADM LAWANDA Location: [address] History of Present Illness Chief Complaint: Dizziness [...] or personal history of Marfan syndromeor Brady-Danlos [facility] Medical History (Updated 01/20/23 @ [...] % (Auto) 60.1 Lymph % (Auto) 31.1 Hooker % (Auto) 5.7 Eos % (Auto) 2.3 [...] Clarity Clear Urine pH 7.0 Ur Specific [place] 1.015 Urine Protein Negative Urine Glucose (UA) [...] (Auto) Neut % (Auto) Lymph % (Auto) Hooker % (Auto) Eos % (Auto) Baso % [...] Color Urine Clarity Urine pH Ur Specific [place] Urine Protein Urine Glucose (UA) Urine Ketones [...] Plan Dx/Rx/DC Orders Clinical Impression: Non-ST elevation TX (NSTEMI), Dizziness Disposition Disposition: Acute Care Hospital [facility] Discharge Date/Time: 01/20/23 15:40 What to do if you have Problems For any increased pain, shortness of breath, bleeding, nausea or vomiting, chestpain, or any unexpected problems, contact your Primary Care Provider. Call [facility] ([phone]) or report to the closest Emergency Room. Call 911 if necessary. 01/20/23 1638 <Electronically signed by Ag Cox DO> Cosigner Signature (if applicable): CC: [facility] ~ Signed [facility] Work Phone: 1(119) 630-514304-21-2023 History and physical note Author Dr. Sanchez [facility] January 20, 2023 4:00pm Note Date/Time January 20, 2023 4:0 0pm [facility] Medical Records Department [address] [place] [address] H&P Exam - Hospitalist 01/20/23 1502 MR#: [id number] Acct: [id number] Name: BRANDI SAUCEDA Rep #:[id number] : 1960 62 From: Michael Langston [facility] St atus:ADM LAWANDA Location: [place] [address] HPI - General General Date of Admission: [...] abnormality with whole and had repair. Denies TX/CAD in her mother or other siblings. Does not know medical history of her father. Vital done in the ED is normal range. Patient is comfortable. 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 Rate 82 bpm, QTc 514 ms, QRS [address]-T changes. No significant change from previous EKG of September 2022. Troponins mildly elevated. [facility] Medical History COPD (chronic obstructive pulmonary disease) [...] % (Auto) 60.1, Lymph % (Auto) 31.1, Hooker % (Auto) 5.7, Eos % (Auto) 2.3, [...] Clarity Clear, Urine pH 7.0, Ur Specific [place] 1.015, Urine Protein Negative, Urine Glucose (UA) [...] I discussed with the ED physician and professor of kinesiology. Third troponin ordered. Patient also had a stress test by outside professor of kinesiology a year ago and was normal. Plan [...] directive. She does not endanger power of trial attorney for health. Next of kin is her . After discussion of benefits/risks procedures involved with full code, DNR CC arrest and DNR CC, the patient is not yet decided therefore full code. Patient does want artificial life support including intubation, tube feed, ventilator and/chest compression, central venous catheter, vasopressor and DC shock if needed Total time spent in [id number] encounter in discussion of advanced directive 17 minutes. Laboratory Results 01/20/23 12:35: WBC 6.9, RBC 5.32, Hgb 14.7, Hct 45.3, MCV 85.2, MCH 27.6, MCHC 32.5, RDW Std Deviation 43.4, RDW Coeff of Kameron 14.0, Plt Count 208, MPV 10.4, Immature Gran % (Auto) 0.100, Neut % (Auto) 60.1, Lymph % (Auto) 31.1, Hooker % (Auto) 5.7, Eos % (Auto) 2.3, [...] Clarity Clear, Urine pH 7.0, Ur Specific [place] 1.015, Urine Protein Negative, Urine Glucose (UA) [...] the chest. Charges/Coding Visit Charges Inpatient E&M: 71069 Init Hosp L3 Procedures Hospitalists Procedures: 91410 Advncd Care Plan 30 Min 01/20/23 1600 <Electronically signed by Michael Sanchez MD> Cosigner Signature (if applicable): CC: Dr. Michael Sanchez MD; [facility]~ Signed [facility] Work Phone: [phone] 607-536311-10-2021 History of Present illness Narrative* Dixie Hansen, [...] IV DATA: Not applicable SIGNED BY: RT Chni(R) August 11, 2021 2:08 PM [facility] Author Dylan Hensley [facility] Note Date/Time May 13, 2025 2: 05pm [facility] Medical Records Department [address] [place] [id number] Pre-Anesthesia Evaluation 05/13/25 1359 MR#: [id number] Acct: [id number] Name: BRANDI SAUCEDA Rep #:[id number] : 1960 64 From: Dylan Hensley MD PCP: RONEY Reyes, PARKING METER ATTENDANT-C Statu s[place] [place] Race: C Location: [place] [address] ASA Classification* ASA Classification ASA Classification: 3 Assessment & Plan Anesthesia* Anesthesia Assessment Anesthesia Assessment: Discussed sedation and/or anesthesia options, risks, benefits, and alternatives with patient/parents/legal guardian/POA. Questions invited. The patient/parents/legal guardian/POA seems to understand and agrees to proceedwith anesthesia plan. Reviewed the physical assessment, medical history, allergy history and patient home medications list prior to surgery/procedure/anesthetic and documented any changes. Performed airway and anesthesia risk assessments. Anesthesia Type Anesthesia Type: MAC History Source History Obtained from:: Patient and Chart Anesthesia Focused Assessment* Temperature: 98 F Pulse Rate: 94 Blood Pressure: 144/95 Respiratory Rate: 16 Pulse Ox: 96 Oxygen Delivery Method: Room Air Airway Assessment Mouth opens: >3 cm Mallampati Score: I Teeth Condition: Missing (Patient is edentulous.) Neck Range of motion (ROM): Limited ROM (Slight Decrease) Labs Anesthesia Preop lab: CBC WBC 7.0 K/mm3 (4.4-11.0) 04/15/25 13:42 04/15/25 RBC 5.22 M/mm3 (4.2-5.4) 04/15/25 13:42 04/15/25 Hgb 14.7 g/dL (12.0-15.0) 04/15/25 13:42 04/15/25 Hct 44.4 % (37-47) 04/15/25 13:42 04/15/25 Plt Count 241 K/mm3 (150-450) 04/15/25 13:42 04/15/25 CHEMISTRY Potassium 4.2 mmol/L (3.3-5.1) 04/15/25 13:42 04/15/25 Sodium 138 mmol/L (133-145) 04/15/25 13:42 04/15/25 Magnesium 2.1 mg/dL (1.6-2.6) 01/20/23 14:47 01/20/23 Phosphorus 3.2 mg/dL (2.5-4.9) 01/20/23 14:47 01/20/23 BUN 17 mg/dL (4-19) 04/15/25 13:42 04/15/25 Creatinine 0.60 mg/dL (0.70-1.20) L 04/15/25 13:42 Glucose 135 mg/dL (70-99) H 04/15/25 13:42 04/15/25 POC Glucose 80 mg/dL (74-106) 09/08/22 10:59 09/08/22 TSH 2.550 uIU/mL (0.300-4.200) 04/15/25 13:42 04/01 02/23 COAG PT 13.1 SECONDS (11.7-14.9) 09/07/22 13:15 Pre-Assessment Diagnosis/Proposed Procedure Planned Operative Procedure(s): Colonoscopy,EGD Anesthesia History 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 When Was Last Pacemaker Check QUESTION #4 FULL TEXT: You/Your Family Experience fever (hyperthermia) with Anesthesia Last Oral Intake Last Oral intake: Last Oral Intake NPO since Meds taken in AM with sips of Yes 05/13/25 13:44 water? Meds patient instructed to 0900 lisinopril 05/13/25 13:44 take am of surgery Any additional information?: Yes NPO since: 10:30 (Patient finished prep at 10:30 AM) Meds taken in AM with sips of water?: Yes PONV PONV - curb builder: PONV - curb builder Female Yes 05/08/25 12:16 HX of Motion Sickness Yes 05/08/25 12:16 HX of N/V After Surgery Yes 05/08/25 12:16 Non-Smoker Yes 05/08/25 12:16 Duration of Surgery greater No 05/08/25 12:16 than 60 minutes Number of Risk Factors 4 05/08/25 12:16 PONV Score Severe Risk 05/08/25 12:16 Height & Weight Height & Weight: Anesthesia: Height & Weight Height 4 ft 8 in 05/09/25 09:50 Weight: 87 kg 05/13/25 13:44 Respiratory Assessment Respiratory Assessment - curb builder: Respiratory Tract Infection Hx - curb builder Hx Respiratory Tract Infection No 05/08/25 12:16 STOP Sleep Apnea STOP Sleep Apnea - curb builder: STOP Sleep Apnea - curb builder Hx Hypertension Yes: ON MEDS 05/08/25 12:16 Hx Sleep Apnea Yes 05/08/25 12:16 CPAP No 05/08/25 12:16 BIPAP No 05/08/25 12:16 Do you snore loudly (louder than talking or can be heard Do you often feel tired/ fatigued/ sleepy during daytime? Has anyone observed you stop breathing during sleep? STOP Results Positive 05/08/25 12:16 QUESTION #5 FULL TEXT : Do you snore loudly (louder than talking or can be heard through closed doors)? 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 Specify any problems Hx of Preganancy in last 3 No 05/08/25 12:16 Months Nurse Filling Out Transfusion JZOLLINGE 05/08/25 12:16 & Questions: Date: 05/08/25 05/08/25 12:16 Time: 12:17 05/08/25 12:16 Patient unable to answer at this time (ie. confused, unrespo /Reproduction History /Reproductive History - curb builder: /Reproductive Hx- curb builder Hx Now No 05/08/25 12:16 Gestational Age (in weeks): EDC: Hx Hx Para Hx Section SAB No 05/08/25 12:16 Active Medications Active Medications: Current Medications Generic Name Dose Route Start Last Admin Trade Name Freq PRN Reason Stop Dose Admin Lactated Ringer's 1,000 mls @ 15 mls/hr 05/13/25 13:30 05/13/25 13:50 IV 15 mls/hr .Q48H DARY Administration PFSH Medical History Edentulism, complete Dietary restriction Non-smoker Right wrist sprain Contusion of right elbow Right shoulder strain Contusion of left knee Contusion of right knee SOURAV (obstructive sleep apnea) Chronic bronchitis Diabetes GERD (gastroesophageal reflux disease) COPD (chronic obstructive pulmonary disease) Hypertension Migraines Home Medications ?Medication ?Instructions ?Recorded ?Last Taken ?Type ergocalciferol (vitamin D2) 1,250 1 cap PO FR SUPPLEME NT 01/21/20 01/13/23 History mcg (50,000 unit) capsule montelukast 10 mg tablet 10 mg PO DAILY@1700 ALLERGIE S 01/21/20 05/12/25 History ascorbic acid (vitamin C) 500 mg 500 mg PO DAILY vitam in 09/07/22 01/19/23 History tablet (Vitamin C) cyclobenzaprine 5 mg tablet 5 mg PO QHS pain 01/20/23 01/19/23 History atorvastatin 20 mg tablet 20 mg PO QHS #30 tabs Unknown Rx loratadine 10 mg tablet 10 mg PO DAILY@1700 PRN berna rgy 30 01/21/23 05/12/25 Rx days #0 tabs aspirin 81 mg tablet,delayed 81 mg PO DAILY 03/15/23 U nknown History release sucralfate 1 gram tablet 1 g PO BID #60 tabs 01/29/24 05/12/25 Rx fluticasone fur. 100 mcg-umeclid 1 ea inhalation QDAY 02/07/25 Unknown History 62.5 mcg-vilant 25 mcg inhalat.powder (Trelegy Ellipta) fluticasone propionate 50 2 spray intranasal QHS 02/0705/12/25 History mcg/actuation nasal spray,suspension ipratropium 0.5 mg-albuterol 3 mg 3 ml inhalation Q8 P RN wheezing 02/07/25 05/12/25 History (2.5 mg base)/3 mL nebulization soln lisinopril 20 mg tablet 20 mg PO QDAY 02/07/2505/13 09:00 History metformin 500 mg tablet,extended 500 mg PO QDAY 05/12/25 History release 24 hr metoprolol succinate 25 mg 25 mg PO QDAY 02/07/2505/02 History tablet,extended release 24 hr multivitamin 1 tab PO QDAY 02/07/2505/12 History nebulizers (Compact Compressor 02/07/25 Unknown Histo ry Nebulizer) triamcinolone acetonide 0.1 % 1 applic topical BID PRN itch 02/07/25 Unknown History topical cream famotidine 40 mg tablet 40 mg PO QHS #30 tabs Unknown Rx omeprazole 40 mg capsule,delayed 40 mg PO QDAY #30 cap s 03/25/25 05/12/25 Rx release ondansetron HCl 4 mg tablet 4 mg PO Q8H PRN nausea and 03/25/25 05/12/25 Rx vomiting #30 tabs Allergy/AdvReac Type Severity Reaction Status Date / Time latex Allergy Intermediate Other Verified 05/09/25 13:03 aspirin Allergy Vomiting Verified 05/09/25 13:03 Family History Father Diabetes Surgical History History of mandibular surgery H/O shoulder surgery H/O: hysterectomy Social History Smoking Status: Former smoker how long ago did patient quit smokin second hand exposure: Yes alcohol intake: former substance use type: does not use Review of Systems (Anesthesia) ROS Narrative System reviewed and no additional complaints, except as documented. 05/13/25 1405 <Electronically signed by Dylan graves MD> Date _ Dylan Hensley MD Cosigner Signature: Date CC: ~ Signed [facility] Work Phone: Consult note Author Tevin Cisse [facility] Note Date/Time May 13, 2025 2: 37pm [facility] Medical Records Department [address] [place] [address] Anesthesia Postop Eval I 05/13/25 1437 MR#: [id number] Acct: [id number] Name: BRANDI SAUCEDA Rep #:[id number] : 1960 64 From: Tevin Cisse PCP: RONEY Reyes NP-C Statu s:REG MICHAEL Y Race: C Location: [place] [address] Anesthesia: Postop Eval I Current Vital Signs Temperature: 97.8 F Pulse Rate: 77 Blood Pressure: 104/72 Respiratory Rate: 18 Pulse Ox: 97 Oxygen Delivery Method: Room Air Assessment Airway patent: Yes Spontaneous unlabored respirations: Yes Mental status: Asleep nausea: No Vomiting: No Anesthesia Complication: No Fluid Hydration Crystalloid volume administer (ml): 600 Total IV fluid infused: 600 Progress Note Anesthesia document: Postop Eval 1 completed: Yes 05/13/25 2357 <Electronically signed by Tevin Cisse > Date _ Tevin Thompsonigner Signature: Date CC: ~ Signed [facility] Work Phone: Consult note Author Wilma Durham [facility] Note Date/Time May 13, 2025 3: 23pm [facility] Medical Records Department [address] [place] [address] Anesthesia Postop Eval II 05/13/25 1520 MR#: [id number] Acct: [id number] Name: BRANDI SAUCEDA ASHLEY Rep #:[id number] : 1960 64 From: Wilma pierre CRNA PCP: RONEY Reyes, LYDIAC Statu s:REG SHIVAC Y Race: C Location: [place] [address] Anesthesia Postop Eval I Sum Postop Eval Completion status Anesthesia document: Postop Eval 1 completed: Yes Anesthesia Postop Eval I Summary Anesthesia Postop Eval I Summary: Anesthesia Postop Eval I: Assessment Summary Airway patent Yes 05/13/25 14:37 [email or web address] Spontaneous unlabored Yes 05/13/25 14:37 [email or web address] respirations Mental status Asleep 05/13/25 14:37 [email or web address] nausea No 05/13/25 14:37 [email or web address] Vomiting No 05/13/25 14:37 [email or web address] Anesthesia Postop Eval I: Fluid Summary Crystalloid volume administer 600 05/13/25 14:37 [email or web address] (ml) Colloids volume administered ( ml) Blood Product volume administered (ml) Total IV fluid infused 600 05/13/25 14:37 [email or web address] Anesthesia Postop Eval I: Summary Notes Anesthesia Complication No 05/13/25 14:37 [email or web address] Anesthesia Complication Comment: Post-operative progress note Anesthesia: Postop Eval II Evaluation Mental status: Awake and Calm Pain Level: 0 nausea: No Vomiting: No Complications Anesthesia Complication: No 05/13/25 1520 <Electronically signed by Wilma mcclain CRNA> Date _ Wilma Durham CRNA Cosigner Signature: Date CC: ~ Signed [facility] Work Phone: Discharge summary Author Natan Gusman [facility] May 13, 2023 10:51am Note Date/Time May 13, 2023 10 :05am [facility] Medical Records Department [address] [place] [address] Emergency Department Summary 05/13/23 MR#: [id number] Acct: [id number] Name: LILLY SAUCEDASanto RAMIREZ Rep #:[id number] : 1960 62 From: Natan Gusman MD PCP: [facility] St atus:REG ER Location: ED HPI [...] Amnesia Narrative Narrative: Patient is a 62-year-old eyoxi-fyhp-ewmcumgm woman who presents because of injury that [...] similar symptoms: No Recent Illness/Hospitalization: No PFSH PFS Medical History Chronic bronchitis COPD (chronic obstructive [...] motor deficits and no sensory deficits noted Eliseo Coma Scale: document GCS findings Spontaneous Obeys [...] BID Qty: 60 0RF Primary Care Provider: [facility] Yesica Philip Referrals: [facility] - Activity Restrictions/Additional Instructions: 1. You may hurt in more places and you presently do over the next several days 2. Your pain may increase over the next 24 to 48 hours 3. Apply ice to areas of discomfort 6-10 times a day for the next 3 to 5 days [facility]. [facility] 5. You may take Tylenol every 4-6 hours for pain. Disposition Disposition: Home, Self Care What to do if you have Problems For any increased pain, shortness of breath, bleeding, nausea or vomiting, chestpain, or any unexpected problems, contact your Primary Care Provider. Call [facility] ([phone]) or report to the closest Emergency Room. Call 911 if necessary. 05/13/23 1051 <Electronically signed by Natan Gusman MD> Cosigner Signature (if applicable): CC: [facility] ~ Signed [facility] Work Phone: Evaluation + Plan note No data available for this section [facility] Evalumqfzf noteNo assessment information available [facility] Work Phone: Evaluation note* Diagnosis Onset Date Resolution Status Chest pain acute Non-ST elevation TX (NSTEMI) acute Vomiting and diarrhea acute [facility] Work Phone: Evaluation note* Diagnosis Onset Date Resolution Status Dizziness acute Non-ST elevation TX (NSTEMI) acute [facility] Work Phone: Evaluation note* Diagnosis Onset Date Resolution Status Chest pain, atypical acute Dizziness acute Non-ST elevation TX (NSTEMI) acute [facility] Work Phone: Evaluation note* Diagnosis Onset Date Resolution Status Chest pain, atypical resolve d Dizziness resolved SOURAV (obstructive sleep apnea) acute Chronic bronchitis chronic [facility] Work Phone: Evaluation note* Diagnosis Onset Date Resolution Status Chest pain, atypical resolve d Dizziness resolved SOURAV (obstructive sleep apnea) acute Chronic bronchitis chronic Atypical chest pain chronic Epigastric pain chronic GERD (gastroesophageal reflux disease) chronic [facility] Work Phone: Evaluation note* Diagnosis Onychomycosis- Primary Dermatophytosis of nail Diminished pulses in lower extremity Other symptoms involving cardiovascular system Pain in toe of left foot Pain in limb Pain in toe of right foot Pain in limb [facility] Onych[facility]osis- Primary Dermatophytosis of nail [facility] Preoperative examination- Primary Preoperative examination, [...] Dermatophytosis of nail [facility] Diagnosis Open wound of toe, initial encounter- Primary [facility] Bob Dueñas [facility] Note Date/Time May 13, 2025 1: 52pm [facility] Medical Records Department [address] [place] [address] History & Physical Exam 05/13/25 1349 MR#: [id number] Acct: [id number] Name: BRANDI SAUCEDA ASHLEY Rep #:[id number] : 1960 64 From: Bob Dueñas DO PCP: Yenny Kauffman, Cecil, PARKING METER ATTENDANT-C Statu [place] [address] HPI - General General Date of Admission: 05/13/25 Date of Service: 05/13/25 Chief Complaint: abdominal/chest/epigastric pain HPI Narrative BRANDI SAUCEDA, is a 64 F who presents from pulmonology for upper abdominal/chest/epigastric pain/burning with sensation of food sticking and morning nausea with intermittent heartburn; PPI started with resolution of emesis. No health insurance making EGD cost prohibitive. Continue protonix, start sucralfate. OV 11.6.23 PCP stopped Carafate. While taking Carafate she has a resolution of symptoms, with stop of Carafate she is now having nausea and upset stomach. PPI continues. Denies marijuana, cigarette and alcohol use. OV 4.29.24 pt reports daily N/V since her PCP took her off carafate. Pt reports that she occasionally has trouble swallowing. Pt reports that she has 3-4 formedbm per day. Pt continues taking pantoprazole.Continue pantoprazole 40 mg, ok to take it QAM to save costs, but can increase back to BID if needed. Add sucralfate bid for a month, GoodRx $15 at [facility]. f/u 2 mos 6.25 OV She reports being on pantoprazole daily and sucralfate but it's not working. She reports daily nausea, uses motion sickness medicine from OTC, and epigastric pain from heartburn. She denies emesis, difficulty swallowing, reflux, excess gas, constipation, diarrhea, hematochezia, and melena. She has difficulty chewing due to being edentulous. She states that she had seen a doctor at [facility] that recommended she have both an EGD and colonoscopy competed this year. [facility] Medical History Edentulism, complete Dietary restriction Non-smoker Right wrist sprain Contusion of right elbow Right shoulder strain Contusion of left knee Contusion of right knee SOURAV (obstructive sleep apnea) Chronic bronchitis Diabetes GERD (gastroesophageal reflux disease) COPD (chronic obstructive pulmonary disease) Hypertension Migraines Home Medications ?Medication ?Instructions ?Recorded ?Last Taken ?Type ergocalciferol (vitamin D2) 1,250 1 cap PO FR SUPPLEME NT 01/21/20 01/13/23 History mcg (50,000 unit) capsule montelukast 10 mg tablet 10 mg PO DAILY@1700 ALLERGIE S 01/21/20 05/12/25 History ascorbic acid (vitamin C) 500 mg 500 mg PO DAILY vitam in 09/07/22 01/19/23 History tablet (Vitamin C) cyclobenzaprine 5 mg tablet 5 mg PO QHS pain 01/20/23 01/19/23 History atorvastatin 20 mg tablet 20 mg PO QHS #30 tabs Unknown Rx loratadine 10 mg tablet 10 mg PO DAILY@1700 PRN berna rgy 30 01/21/23 05/12/25 Rx days #0 tabs aspirin 81 mg tablet,delayed 81 mg PO DAILY 03/15/23 U nknown History release sucralfate 1 gram tablet 1 g PO BID #60 tabs 01/29/24 05/12/25 Rx fluticasone fur. 100 mcg-umeclid 1 ea inhalation QDAY 02/07/25 Unknown History 62.5 mcg-vilant 25 mcg inhalat.powder (Trelegy Ellipta) fluticasone propionate 50 2 spray intranasal QHS 02/0705/12/25 History mcg/actuation nasal spray,suspension ipratropium 0.5 mg-albuterol 3 mg 3 ml inhalation Q8 P RN wheezing 02/07/25 05/12/25 History (2.5 mg base)/3 mL nebulization soln lisinopril 20 mg tablet 20 mg PO QDAY 02/07/2505/13 09:00 History metformin 500 mg tablet,extended 500 mg PO QDAY 05/12/25 History release 24 hr metoprolol succinate 25 mg 25 mg PO QDAY 02/07/2505/02 History tablet,extended release 24 hr multivitamin 1 tab PO QDAY 02/07/2505/12 History nebulizers (Compact Compressor 02/07/25 Unknown Histo ry Nebulizer) triamcinolone acetonide 0.1 % 1 applic topical BID PRN itch 02/07/25 Unknown History topical cream famotidine 40 mg tablet 40 mg PO QHS #30 tabs Unknown Rx omeprazole 40 mg capsule,delayed 40 mg PO QDAY #30 cap s 03/25/25 05/12/25 Rx release ondansetron HCl 4 mg tablet 4 mg PO Q8H PRN nausea and 03/25/25 05/12/25 Rx vomiting #30 tabs Allergy/AdvReac Type Severity Reaction Status Date / Time latex Allergy Intermediate Other Verified 05/09/25 13:03 aspirin Allergy Vomiting Verified 05/09/25 13:03 Family History Father Diabetes Surgical History History of mandibular surgery H/O shoulder surgery H/O: hysterectomy Social History Smoking Status: Former smoker how long ago did patient quit smokin second hand exposure: Yes alcohol intake: former substance use type: does not use ROS Constitutional Constitutional: Denies fatigue, fever(s), poor appetite, weight gain or weight loss Gastrointestinal Gastrointestinal: Denies belching, bloating, change in bowel habits, change in stool character, chewing difficulty, coffee ground emesis, constipation, cramping, diarrhea, dyspepsia, dysphagia, early satiety, excessive flatus, fecalincontinence, heartburn, hematemesis, hematochezia, hemorrhoids, loose stools, melena, nausea, odynophagia, rectal bleeding, tenesmus, vomiting or weight changes Vital Signs Vital Signs Vital Signs: 05/13/25 13:44 05/13/25 13:44 Temperature 98 F Temperature Source Temporal Pulse Rate 94 Respiratory Rate 16 Respiratory Pattern Normal Blood Pressure 144/95 H Blood Pressure Mean 111 Blood Pressure Source Monitor Blood Pressure Position Sitting Blood Pressure Location Right Arm Pulse Ox 96 Oxygen Delivery Method Room Air Weight Weight: 191 lb 12.835 oz Physical Exam Const alert, oriented x3, no apparent distress and healthy appearing General Appearance: cooperative GI normal to inspection, nondistended, normoactive bowel sounds, soft to palpation,non-tender and non-distended Percussion: normal to percussion Rectal Exam: deferred Assessment & Plan Assessment/Plan (1) Nausea: (2) Epigastric pain: (3) GERD (gastroesophageal reflux disease): QUALIFIERS: Esophagitis presence: without esophagitis Qualified Code(s): K21.9 - Gastro-esophageal reflux disease without esophagitis PLAN: Assessment and Plan Assessment and Plan (1) GERD (gastroesophageal reflux disease): Status: Chronic Qualifiers: Esophagitis presence: without esophagitis Qualified Code(s): K21.9 - Gastro-esophageal reflux disease without esophagitis (2) Epigastric pain: Status: Chronic (3) Nausea: Status: Acute Orders: Orders Gastric Emptying Study 03/25/25 K21.9 - Gastro-esophageal reflux disease without esophagitis, R10.13 - Epigastric pain, R11.0 - Nausea Medications: New omeprazole 40 mg PO QDAY 30 caps 2RF famotidine 40 mg PO QHS 30 tabs 2RF ondansetron HCl 4 mg PO Q8H PRN 30 tabs 0RF nausea and vomiting Discontinued pantoprazole Discontinued Reason: Order Changed 40 mg PO QAM 90 tabs 3RF Plan BRANDI SAUCEDA, is a 64 F who presents to the office today for FU. She denies having emptying studies in the past. * stop pantoprazole * change to omeprazole 40mg PO daily * add famotidine 40mg PO QHS * ondansetron 4mg PO Q8h PRN nausea, after using new PPI+H2a for 1wk * GET 1hr * schedule bidirectional endoscopies * office FU 2wks after endoscopies 05/13/25 1352 <Electronically signed by Bob Dueñas DO> Cosigner Signature (if applicable): CC: C PARKING METER ATTENDANT-C Yenny Kauffman; Bob Dueñas, ~ Signed [facility] Work Phone: Hospital Discharge instructions No data available for this section [facility] Hospital Discharge instructionsAdditional Instructions Follow-up with your PCP and return for any other concerns or worsening symptoms. [facility] Work Phone: Progress note No data available for this section [facility] Reason for referral (narrative)* Outpatient Procedure (Routine) - Pending Review Specialty Diagnoses / Procedures Referred By Johnnie pulido [facility] Diagnoses Diminished pulses in lower extremity Onychomycosis Procedures PVR ANK PRESS [facility] NON-INVAS PHYSIOLOGIC STD EXTREMITY ART 2 LEVEL [place] [employer] 721 E VEE [place] [address] [facility] [address] [place] [id number] Referral ID Status Reason Start Date Expiration Date Visits Requested Visits Authorized [id number] Pending Review Auto-Generat ed Referral 3 08/14/2024 1 1 [facility] for referral (narrative)No reason for referral information availableWTriHealth [facility] Work Phone: Chief Complaint and Reason for Visit Chief Complaint SCREENING Chief Complaint NSTEMI Reason for Visit Chest pain Non-ST elevation TX (NSTEMI) Vomiting and diarrhea Chief Complaint NSTEMI NSTEMI NSTEMI NSTEMI NSTEMI Reason for Visit Chest pain Non-ST elevation TX (NSTEMI) Vomiting and diarrhea Chief Complaint DIZZINESS AND CP Reason for Visit Dizziness Non-ST elevation TX (NSTEMI) Chief Complaint DIZZINESS AND CP DIZZINESS AND CP Reason for Visit Chest pain, atypical Dizziness Non-ST elevation TX (NSTEMI) Chief Complaint DIZZINESS AND CP CP [...] 10:5 3am J42 - Unspecified chronic bronchitis Mar 12:38pm Gastroesophageal reflux disease (GERD) J [facility] 2024 2:10pm Reason for Visit Admit Date Chronic bronchitis February 07, 2025 1:46pm SOURAV (obstructive sleep apnea) February 07, 2 025 1:46pm Nausea March 25, 2025 2:10 pm Epigastric pain March 25, 2025 2:10 pm GERD (gastroesophageal reflux disease) J [facility] 2024 2:10pm Chief Complaint Admit Date Pt to follow up per PCP February 07, 2025 1: 46pm G47.33 - Obstructive sleep apnea (adult) (pediatri February 25, 2025 1:00pm SCREENING March 14, 2025 10:5 3am J42 - Unspecified chronic bronchitis Mar 12:38pm Gastroesophageal reflux disease (GERD) J [facility] 2024 2:10pm GERD April 10, 2025 12:4 1pm Foreign body April 13, 2025 11:5 5am Chief Complaint Admit Date Pt to follow up per PCP February 07, 2025 1: 46pm G47.33 - Obstructive sleep apnea (adult) (pediatri February 25, 2025 1:00pm SCREENING March 14, 2025 10:5 3am J42 - Unspecified chronic bronchitis Mar 12:38pm Gastroesophageal reflux disease (GERD) J [facility] 2024 2:10pm GERD April 10, 2025 12:4 1pm Foreign body April 13, 2025 11:5 5am localized edema May 02, 2025 12: 46pm Chief Complaint Admit Date Pt to follow up per PCP February 07, 2025 1: 46pm G47.33 - Obstructive sleep apnea (adult) (pediatri February 25, 2025 1:00pm SCREENING March 14, 2025 10:5 3am J42 - Unspecified chronic bronchitis Mar 12:38pm Gastroesophageal reflux disease (GERD) J [facility] 2024 2:10pm GERD April 10, 2025 12:4 1pm Foreign body April 13, 2025 11:5 5am localized edema May 02, 2025 12: 46pm 3 M FU May 09, 2025 1:0 1pm Reason for Visit Admit Date Chronic bronchitis February 07, 2025 1:46pm SOURAV (obstructive sleep apnea) February 07, 2 025 1:46pm Nausea March 25, 2025 2:10 pm Epigastric pain March 25, 2025 2:10 pm GERD (gastroesophageal reflux disease) J [facility] 2024 2:10pm Chronic bronchitis May 09, 2025 1:0 1pm SOURAV (obstructive sleep apnea) May 1:01pm Reason for Visit Admit Date Chronic bronchitis February 07, 2025 1:46pm SOURAV (obstructive sleep apnea) February 07, 2 025 1:46pm Nausea March 25, 2025 2:10 pm Epigastric pain March 25, 2025 2:10 pm GERD (gastroesophageal reflux disease) J [facility] 2024 2:10pm Chronic bronchitis May 09, 2025 1:0 1pm SOURAV (obstructive sleep apnea) May 1:01pm Nausea May 13, 2025 1: 16pm Epigastric pain May 13, 2025 1: 16pm GERD (gastroesophageal reflux disease) A [facility] 2024 1:16pm Chief Complaint Admit Date Pt to follow up per PCP February 07, 2025 1: 46pm G47.33 - Obstructive sleep apnea (adult) (pediatri February 25, 2025 1:00pm SCREENING March 14, 2025 10:5 3am J42 - Unspecified chronic bronchitis [place] 2024 12:38pm Gastroesophageal reflux disease (GERD) J une 2024 2:10pm GERD April 10, 2025 12:4 1pm Foreign body April 13, 2025 11:5 5am localized edema May 02, 2025 12: 46pm 3 M FU May 09, 2025 1:0 1pm Test Result May 29, 2025 1: 16pm Advance Directives No Advanced Directives Records Found Advance Directive Response Recorded Date/ Time Living Will No November 25 021 10:51am Power of Sql Report Analyst No November 25, 2020 10:51am Advance Directive Response Recorded Date/ Time Living Will No September 07 3:40pm Power of Sql Report Analyst No September 07, 2022 3:40pm Advance Directive Response Recorded Date/ Time Living Will No January 20, 2023 12:58pm Power of Sql Report Analyst No January 20 12:58pm Advance Directive Response Recorded Date/ Time Living Will No January 20, 2023 3:51pm Power of Sql Report Analyst No January 20 3:51pm Advance Directive Response Recorded Date/ Time Living Will No May 13 10:22am Power of Sql Report Analyst No May 13 023 10:22am Advance Directive Response Recorded Date/ Time Living Will No April 14, 2024 4:53pm Do you have a Healthcare Power of Sql Report Analyst? No April 14, 2024 4:53pm Advance Directive Response Recorded Date/ Time Living Will No April 14, 2024 4:53pm Do you have a Healthcare Power of Sql Report Analyst? No April 14, 2024 4:53pm Do you have a Healthcare Power of Sql Report Analyst? No April 13, 2025 12:19pm Advance Directive Response Recorded Date/ Time Do you have a Healthcare Power of Sql Report Analyst? No May 08, 2025 12:16pm Living Will No April 14, 2024 4:53pm Do you have a Healthcare Power of Sql Report Analyst? No April 14, 2024 4:53pm Do you have a Healthcare Power of Sql Report Analyst? No April 13, 2025 12:19pm Summary Purpose Family History No Family History [...] Status Dates Jaye Sterling Family Provider Active [facility] Primary Care Provider A ctive Team Status: Active Member Role Status Dates [facility] Primary Care Provider A ctive Dr. Ag Cox DO Emergency Provider Active Dr. Michael Sanchez MD Admit Provider, Attending Provi janey Active Team Status: Active Member Role Status Dates [facility] Primary Care Provider A ctive Dr. Kary Ca MD Attending Provider Active Team Status: Active Member Role Status Dates [facility] Primary Care Provider A ctive Dr. Ag Cox DO Emergency Provider Active Dr. Michael Sanchez MD Admit Provider, A ttending Provider, Other Provider Active Team Status: Inactive Member Role Status Dates [facility] Primary Care Provider A ctive Dr. Ag Cox DO Emergency Provider Active Dr. iMchael Sanchez MD Admit Provider, Attending Provi janey Active Team Status: Inactive Member Role Status Dates [facility] Primary Care Provider, Referring Provider Active Dr. Philip Guadarrama MD Attending Provider Active Team Status: Active Member Role Status Dates [facility] Primary Care Provider A ctive Dr. Jovani Dee MD Attending Provider, Referring Pro vider Active Team Status: Inactive Member Role Status Dates [facility] Primary Care Provider A ctive Yenny Kauffman PARKING METER ATTENDANT, PARKING METER ATTENDANT-C Attending Provider, Carmen joe Provider Active Team Status: Inactive Member Role Status Dates [facility] Primary Care Provider, Referring Provider Active Bri Lindsey PARKING METER ATTENDANT, PARKING METER ATTENDANT-C Attending Provider Active Team Status: Inactive Member Role Status Dates [facility] Primary Care Provider A ctive Dr. Natan Gusman MD Emergency Provider Active [employer] Relationship Specialty Start Date End Date Cayla Chowdhury CNP [address] [facility] [place] [address] PCP - General Internal Medicine 09/03/21 Russell Fiore [facility] [place] [address] Referring Dermatology 04/24/23 Rn Oncology Research Relationship Specialty Start Date End Date Cayla Chowdhury CNP [facility] [place] [address] PCP - General Internal Medicine 09/03/21 Russell Fiore [facility] [place] [address] Referring Dermatology 04/24/23 Yenny Kauffman NP [address] [place] [phone] Referring Family Medicine 10/16/23 Rn Oncology Research Relationship Specialty Start Date End Date Yenny Kauffman NP [address] [place] [phone] PCP - General Family Medicine 11/29/23 Russell Fiore [address] [place] [address] Referring Dermatology 04/24/23 Yenny Kauffman NP [address] [place] [place] [phone] Referring Family Medicine 10/16/23 Rn Oncology Research Relationship Specialty Start Date End Date Cayla Chowdhury CNP [address] [facility] [place] [address] PCP - General Internal Medicine 09/03/21 11/28/23 Yenny Kauffman NP [address] [facility] [place] [phone] PCP - General Family Medicine 11/29/23 Russell Fiore [address] [facility], [place] [id number] Referring Dermatology 04/24/23 Yenny Kauffman NP [address] [facility] [place] [phone] Referring Family Medicine 10/16/23 Rn Oncology Research Relationship Specialty Start Date End Date Yenny Kauffman NP [address] [place] [phone] PCP - General Family Medicine 11/29/23 Russell Fiore [address] [facility] [place] [address] Referring Dermatology 04/24/23 Yenny Kauffman NP [address] [place] [phone] Referring Family Medicine 10/16/23 Rn Oncology Research Relationship Specialty Start Date End Date Yenny Kauffman NP [address] [place] [phone] PCP - General Family Medicine 11/29/23 Russell Fiore [address] [place] [address] Referring Dermatology 04/24/23 Yenny Kauffman NP [facility] [place] [phone] Referring Family Medicine 10/16/23 Rn Oncology Research Relationship Specialty Start Date End Date Jaye Sterling, PATIENT CARE TECHNICIAN [address] [place] [id number] PCP - General Family Medicine 12/01/16 09/02/21 Cayla Chowdhury CNP [facility] [place] [address] Referring Internal Medicine 05/28/21 09/02/21 Team Status: Active Member Role Status Dates Yenny AMANDA, PARKING METER ATTENDANT-C Primary Care Provider Activ e Team Status: Inactive Member Role Status Dates Yenny AMANDA, PARKING METER ATTENDANT-C Primary Care Provider Activ e Start: January 14, 2025 End: January 14, 2025 Yenny AMANDA PARKING METER ATTENDANT-C Attending Provider Active Start: January 14, 2025 End: January 14, 2025 Team Status: Inactive Member Role Status Dates Yenny AMANDA, PARKING METER ATTENDANT-C Primary Care Provider Activ e Start: February 07, 2025 End: February 07, 2025 Yenny AMANDA, PARKING METER ATTENDANT-C Referring Provider Active Start: February 07, 2025 End: February 07, 2025 Dolores Hunt NP-C Attending Provider Active Start: February 07, 2025 End: February 07, 2025 Team Status: Inactive Member Role Status Dates Yenny AMANDA, PARKING METER ATTENDANT-C Primary Care Provider Activ e Start: February 25, 2025 End: February 25, 2025 Dolores Hunt PARKING METER ATTENDANT-C Attending Provider Active Start: February 25, 2025 End: February 25, 2025 Dolores Hunt PARKING METER ATTENDANT-C Referring Provider Active Start: February 25, 2025 End: February 25, 2025 Team Status: Inactive Member Role Status Dates Yenny Jamari VSC, PARKING METER ATTENDANT-C Primary Care Provider Activ e Start: March 14, 2025 End: March 14, 2025 Yenny JULESC, PARKING METER ATTENDANT-C Attending Provider Active Start: March 14, 2025 End: March 14, 2025 Yenny Kauffman VSC, PARKING METER ATTENDANT-C Referring Provider Active Start: March 14, 2025 End: March 14, 2025 Team Status: Active Member Role Status Dates Yenny Jamari JULESC, PARKING METER ATTENDANT-C Primary Care Provider Activ e Start: March 21, 2025 Dolores Hunt PARKING METER ATTENDANT-C Attending Provider Active Start: March 21, 2025 Dolores Hunt PARKING METER ATTENDANT-C Referring Provider Active Start: March 21, 2025 Team Status: Inactive Member Role Status Dates Yenny Jamari VSC, PARKING METER ATTENDANT-C Primary Care Provider Activ e Start: March 25, 2025 End: March 25, 2025 Yenny JULESC, PARKING METER ATTENDANT-C Referring Provider Active Start: March 25, 2025 End: March 25, 2025 Jennie Gutierrez PARKING METER ATTENDANT-C Attending Provider Active S tart: March 25, 2025 End: March 25, 2025 Team Status: Active Member Role/Relationship Status Dates Yenny Jamari VSC, PARKING METER ATTENDANT-C Primary Care Provider Activ e Team Status: Inactive Member Role/Relationship Status Dates Yenny Jamari VSC, PARKING METER ATTENDANT-C Primary Care Provider Activ e Start: January 14, 2025 End: January 14, 2025 Yenny JULESC, PARKING METER ATTENDANT-C Attending Provider Active Start: January 14, 2025 End: January 14, 2025 Team Status: Inactive Member Role/Relationship Status Dates Yenny Jamari VSC, PARKING METER ATTENDANT-C Primary Care Provider Activ e Start: February 07, 2025 End: February 07, 2025 Yenny Kauffman VSC, PARKING METER ATTENDANT-C Referring Provider Active Start: February 07, 2025 End: February 07, 2025 Dolores M Rufener , PARKING METER ATTENDANT-C Attending Provider Active Start: February 07, 2025 End: February 07, 2025 Team Status: Inactive Member Role/Relationship Status Dates Yenny JULESCecil, PARKING METER ATTENDANT-C Primary Care Provider Activ e Start: February 25, 2025 End: February 25, 2025 Dolores Hunt PARKING METER ATTENDANT-C Attending Provider Active Start: February 25, 2025 End: February 25, 2025 Dolores Hunt PARKING METER ATTENDANT-C Referring Provider Active Start: February 25, 2025 End: February 25, 2025 Team Status: Inactive Member Role/Relationship Status Dates Yenny Jamari JULESC, PARKING METER ATTENDANT-C Primary Care Provider Activ e Start: March 14, 2025 End: March 14, 2025 Yenny JULESC, PARKING METER ATTENDANT-C Attending Provider Active Start: March 14, 2025 End: March 14, 2025 Yenny JULESC, PARKING METER ATTENDANT-C Referring Provider Active Start: March 14, 2025 End: March 14, 2025 Team Status: Inactive Member Role/Relationship Status Dates Yenny Kauffman DHARAC, PARKING METER ATTENDANT-C Primary Care Provider Activ e Start: March 21, 2025 End: March 21, 2025 Dolores Hunt PARKING METER ATTENDANT-C Attending Provider Active Start: March 21, 2025 End: March 21, 2025 Dolores Hunt PARKING METER ATTENDANT-C Referring Provider Active Start: March 21, 2025 End: March 21, 2025 Team Status: Inactive Member Role/Relationship Status Dates Yenny Jamari DHARACecil, PARKING METER ATTENDANT-C Primary Care Provider Activ e Start: March 25, 2025 End: March 25, 2025 Yenny AMANDA, PARKING METER ATTENDANT-C Referring Provider Active Start: March 25, 2025 End: March 25, 2025 Jennie Gutierrez PARKING METER ATTENDANT-C Attending Provider Active S tart: March 25, 2025 End: March 25, 2025 Team Status: Active Member Role/Relationship Status Dates Yenny Jamari AMANDA, PARKING METER ATTENDANT-C Primary Care Provider Activ e Start: April 10, 2025 Jennie Gutierrez PARKING METER ATTENDANT-C Attending Provider Active S tart: April 10, 2025 Jennie Gutierrez PARKING METER ATTENDANT-C Referring Provider Active S tart: April 10, 2025 Team Status: Inactive Member Role/Relationship Status Dates Yenny Jamari VSC, PARKING METER ATTENDANT-C Primary Care Provider Activ e Start: April 13, 2025 End: April 13, 2025 Dr. Alfredo Owen , Emergency Provider Active Start: April 13, 2025 End: April 13, 2025 Team Status: Inactive Member Role/Relationship Status Dates Yenny JULESC, PARKING METER ATTENDANT-C Primary Care Provider Activ e Start: April 10, 2025 End: April 10, 2025 Jennie Gutierrez PARKING METER ATTENDANT-C Attending Provider Active S tart: April 10, 2025 End: April 10, 2025 Jennie Gutierrez PARKING METER ATTENDANT-C Referring Provider Active S tart: April 10, 2025 End: April 10, 2025 Team Status: Inactive Member Role/Relationship Status Dates Yenny Kauffman VSC, PARKING METER ATTENDANT-C Primary Care Provider Activ e Start: April 13, 2025 End: April 13, 2025 Dr. Alfredo Owen , Attending Provider Active Start: April 13, 2025 End: April 13, 2025 Dr. Alfredo Owne , Emergency Provider Active Start: April 13, 2025 End: April 13, 2025 Team Status: Active Member Role/Relationship Status Dates Yenny Kauffman VSC, PARKING METER ATTENDANT-C Primary Care Provider Activ e Start: April 15, 2025 Yenny Kauffman VSC, PARKING METER ATTENDANT-C Attending Provider Active Start: April 15, 2025 Team Status: Inactive Member Role/Relationship Status Dates Yenny Kauffman VSC, PARKING METER ATTENDANT-C Primary Care Provider Activ e Start: April 15, 2025 End: April 15, 2025 Yenny Kauffman VSC, PARKING METER ATTENDANT-C Attending Provider Active Start: April 15, 2025 End: April 15, 2025 Team Status: Inactive Member Role/Relationship Status Dates Yennyjuan Kauffman VSC, PARKING METER ATTENDANT-C Primary Care Provider Activ e Start: May 02, 2025 End: May 02, 2025 Yenny Kauffman VSC, PARKING METER ATTENDANT-C Attending Provider Active Start: May 02, 2025 End: May 02, 2025 Yenny Kauffman VSC, PARKING METER ATTENDANT-C Referring Provider Active Start: May 02, 2025 End: May 02, 2025 Team Status: Inactive Member Role/Relationship Status Dates Yenny Kauffman VSC, PARKING METER ATTENDANT-C Primary Care Provider Activ e Start: May 09, 2025 End: May 09, 2025 Yenny Kauffman VSC, PARKING METER ATTENDANT-C Referring Provider Active Start: May 09, 2025 End: May 09, 2025 Dolores Hunt NP-C Attending Provider Active Start: May 09, 2025 End: May 09, 2025 Team Status: Inactive Member Role/Relationship Status Dates Yenny Jamari JULESC, PARKING METER ATTENDANT-C Primary Care Provider Activ e Start: May 13, 2025 End: May 13, 2025 Yenny Kauffman VSC, PARKING METER ATTENDANT-C Referring Provider Active Start: May 13, 2025 End: May 13, 2025 Dr. Bob Dueñas , Attending Provider Active Start: May 13, 2025 End: May 13, 2025 Team Status: Active Member Role/Relationship Status Dates Yenny Kauffman VSC, PARKING METER ATTENDANT-C Primary Care Provider Activ e Start: May 13, 2025 Yenny Kauffman VSC, PARKING METER ATTENDANT-C Referring Provider Active Start: May 13, 2025 Dr. Bob Dueñas DO Attending Provider Active Start: May 13, 2025 Dr. Bob Dueñas DO Other Provider Active St art: May 13, 2025 Team Status: Inactive Member Role/Relationship Status Dates Yennyjuan Kauffman VSC, PARKING METER ATTENDANT-C Primary Care Provider Activ e Start: February 07, 2025 End: February 07, 2025 Yenny Kauffman VSC, PARKING METER ATTENDANT-C Referring Provider Active Start: February 07, 2025 End: February 07, 2025 Dolores Hunt NP-C Attending Provider Active Start: February 07, 2025 End: February 07, 2025 Team Status: Inactive Member Role/Relationship Status Dates Yenny Jamari JULESC, PARKING METER ATTENDANT-C Primary Care Provider Activ e Start: February 25, 2025 End: February 25, 2025 Dolores Hunt PARKING METER ATTENDANT-C Attending Provider Active Start: February 25, 2025 End: February 25, 2025 Dolores Hunt PARKING METER ATTENDANT-C Referring Provider Active Start: February 25, 2025 End: February 25, 2025 Team Status: Inactive Member Role/Relationship Status Dates Yenny Jamari VSC, PARKING METER ATTENDANT-C Primary Care Provider Activ e Start: March 14, 2025 End: March 14, 2025 Yenny Kauffman VSC, PARKING METER ATTENDANT-C Attending Provider Active Start: March 14, 2025 End: March 14, 2025 Yenny Kauffman VSC, PARKING METER ATTENDANT-C Referring Provider Active Start: March 14, 2025 End: March 14, 2025 Team Status: Inactive Member Role/Relationship Status Dates Yenny JULESCecil, PARKING METER ATTENDANT-C Primary Care Provider Activ e Start: March 21, 2025 End: March 21, 2025 Dolores Hunt , PARKING METER ATTENDANT-C Attending Provider Active Start: March 21, 2025 End: March 21, 2025 Dolores Hunt PARKING METER ATTENDANT-C Referring Provider Active Start: March 21, 2025 End: March 21, 2025 Team Status: Inactive Member Role/Relationship Status Dates Yenny JULESC, PARKING METER ATTENDANT-C Primary Care Provider Activ e Start: March 25, 2025 End: March 25, 2025 Yennyjorge luis Kauffman DHARAC, PARKING METER ATTENDANT-C Referring Provider Active Start: March 25, 2025 End: March 25, 2025 Jennie Gutierrez PARKING METER ATTENDANT-C Attending Provider Active S tart: March 25, 2025 End: March 25, 2025 Team Status: Inactive Member Role/Relationship Status Dates Yenny JULESCecil, PARKING METER ATTENDANT-C Primary Care Provider Activ e Start: April 10, 2025 End: April 10, 2025 Jennie Gutierrez PARKING METER ATTENDANT-C Attending Provider Active S tart: April 10, 2025 End: April 10, 2025 Jennie Gutierrez PARKING METER ATTENDANT-C Referring Provider Active S tart: April 10, 2025 End: April 10, 2025 Team Status: Inactive Member Role/Relationship Status Dates Yenny JULESCecil, PARKING METER ATTENDANT-C Primary Care Provider Activ e Start: April 13, 2025 End: April 13, 2025 Dr. Alfredo Owen DO Attending Provider Active Start: April 13, 2025 End: April 13, 2025 Dr. Alfredo Owen , Emergency Provider Active Start: April 13, 2025 End: April 13, 2025 Team Status: Inactive Member Role/Relationship Status Dates Yenny Jamari DHARAC, PARKING METER ATTENDANT-C Primary Care Provider Activ e Start: April 15, 2025 End: April 15, 2025 Yenny Jamari JULESC, PARKING METER ATTENDANT-C Attending Provider Active Start: April 15, 2025 End: April 15, 2025 Team Status: Inactive Member Role/Relationship Status Dates Yenny Jamari DHARAC, PARKING METER ATTENDANT-C Primary Care Provider Activ e Start: May 02, 2025 End: May 02, 2025 Yenny Kauffman VSC, PARKING METER ATTENDANT-C Attending Provider Active Start: May 02, 2025 End: May 02, 2025 Yenny Kauffman VSC, PARKING METER ATTENDANT-C Referring Provider Active Start: May 02, 2025 End: May 02, 2025 Team Status: Inactive Member Role/Relationship Status Dates Yenny Kauffman VSC, PARKING METER ATTENDANT-C Primary Care Provider Activ e Start: May 09, 2025 End: May 09, 2025 Yenny Jamari VSC, PARKING METER ATTENDANT-C Referring Provider Active Start: May 09, 2025 End: May 09, 2025 Dolores Hunt , PARKING METER ATTENDANT-C Attending Provider Active Start: May 09, 2025 End: May 09, 2025 Team Status: Inactive Member Role/Relationship Status Dates Yenny Kauffman VSC, PARKING METER ATTENDANT-C Primary Care Provider Activ e Start: May 13, 2025 End: May 13, 2025 Yenny Jamari VSC, PARKING METER ATTENDANT-C Referring Provider Active Start: May 13, 2025 End: May 13, 2025 Dr. Bob Dueñas DO Attending Provider Active Start: May 13, 2025 End: May 13, 2025 Team Status: Active Member Role/Relationship Status Dates Yenny Kauffman VSC, PARKING METER ATTENDANT-C Primary Care Provider Activ e Start: May 13, 2025 Yenny Jamari VSC, PARKING METER ATTENDANT-C Referring Provider Active Start: May 13, 2025 Dr. Bob Dueñas DO Attending Provider Active Start: May 13, 2025 Dr. Bob Dueñas DO Other Provider Active St art: May 13, 2025 Team Status: Inactive Member Role/Relationship Status Dates Yenny Kauffman VSC, PARKING METER ATTENDANT-C Primary Care Provider Activ e Start: May 29, 2025 End: May 29, 2025 Yenny Kauffman VSC, PARKING METER ATTENDANT-C Referring Provider Active Start: May 29, 2025 End: May 29, 2025 JOSEPHINE Lemos Attending Provider Active Start: May 29, 2025 End: May 29, 2025 Source Comments (unrecognize d section and content) In the event this informatio n is protected by the Federal Confidentiality of Alcohol and Drug Abuse Patient Records regulations: The Federal rules restrict any use of the information to criminally investigate or prosecute any alcohol or drug abuse patient.[facility] the event this information is protected by the Federal Confidentiality of Alcohol and Drug Abuse Patient Records regulations: The Federal rules restrict any use of the information to criminally investigate or prosecute any alcohol or drug abuse patient.[facility] the event this information is protected by the Federal Confidentiality of Alcohol and Drug Abuse Patient Records regulations: The Federal rules restrict any use of the information to criminally investigate or prosecute any alcohol or drug abuse patient.[facility] the event this information is protected by the Federal Confidentiality of Alcohol and Drug Abuse Patient Records regulations: The Federal rules restrict any use of the information to criminally investigate or prosecute any alcohol or drug abuse patient.[facility] the event this information is protected by the Federal Confidentiality of Alcohol and Drug Abuse Patient Records regulations: The Federal rules restrict any use of the information to criminally investigate or prosecute any alcohol or drug abuse patient.[facility]In the event this information is protected by the Federal Confidentiality of Alcohol and Drug Abuse Patient Records regulations: The Federal rules restrict any use of the information to criminally investigate or prosecute any alcohol or drug abuse patient.[facility] the event this information is protected by the Federal Confidentiality of Alcohol and Drug Abuse Patient Records regulations: The Federal rules restrict any use of the information to criminally investigate or prosecute any alcohol or drug abuse patient.[facility] Reason for Visit (unrecogniz ed section and content) Reason Comments Established Patient Follow Up Post Op Specialty Diagnoses / Procedures Referred By Contact Referred To Contact Podiatry / [facility] Diagnoses Toenail deformity Procedures Needs HCAP renewal Yenny Kauffman, VADIM [address] [place] [address] [facility] [address] [place] [address] Referral ID Status Reason Start Date Expiration Date Visits Requested Visits Authorized [id number] Authorized Patient Cleared - Qualified HCAP/501/FA 10/23/2023 01/21/2024 99 99 Reason Comments New Pain Specialty Diagnoses / Procedures Referred By Contac t Referred To Contact [facility] Diagnoses medically necessary Procedures medically necessary [place] [facility] [place] [address] Referral ID Status Reason Start Date Expiration Date Visits Requested Visits Authorized [id number] Authorized Financial Clearance Required - Self Pay Patient Cleared - Qualified HCAP/501/FA 3 10/23/2023 99 99 Reason Comments Established Patient Follow Up Nail Check Reason Comments Consult Reason Comments Patient Update Reason Comments Patient Question Specialty Diagnoses / Procedures Referred By Contac t Referred To Contact Radiology / [facility] Diagnoses xray ml Procedures XR GENERAL [address] Cayla Chowdhury, PATIENT CARE TECHNICIAN [address] [place] [address] Radio General [facility] [address] [place] [address] Referral ID Status Reason Start Date Expiration Date V isits Requested Visits Authorized [id number] Closed Patient Cleared - Qualified 100% FAS 08/11/2021 11/09/2021 99 99 INFORMATION SOURCE (unrecogn ized section and content) DATE CREATED AUTHOR 12/09/2023 [facility] DATE CREATED AUTHOR AUTHOR'S ORGANIZ ATION 03/13/2024 [facility]) DATE CREATED AUTHOR AUTHOR'S ORGANIZ ATION 07/05/2024 [facility] DATE CREATED AUTHOR AUTHOR'S ORGANIZ ATION 06/10/2025 [facility] FOR RECORDS PERTAINING TO PATIENTS WHO [...] BE BASED ON THE PRIMARY CLINICAL RECORDS. [employer] provides no warranty or guarantee of the accuracy or completeness of information in this document.
--- NOTE | 2025-07-16 18:26 | ED.VIS.GI ---
HPI HPI - GI History of Present Illness Chief Complaint: GI Bleed Narrative Narrative: 65-year-old female presents with bright red blood per rectum that began early this morning. She states yesterday evening started having nausea and vomiting. She denies any hematemesis. She then started having bowel movements and bright red blood per rectum. She does not take any blood thinners. She is prediabetic. She does not take aspirin or ibuprofen/NSAIDs. She complains of abdominal pain in the bilateral lower quadrants as well. No exacerbating or alleviating factors. She was concerned because of the bright red blood per rectum especially with bowel movements. She denies any exacerbating or alleviating factors. She does state that she had colonoscopy within the last [address] Dueñas, and he did not find any diverticuli or abnormalities. [facility] Medical History Edentulism, complete Dietary restriction Non-smoker Right wrist sprain Contusion of right elbow Right shoulder strain Contusion of left knee Contusion of right knee SOURAV (obstructive sleep apnea) Chronic bronchitis Diabetes GERD (gastroesophageal reflux disease) COPD (chronic obstructive pulmonary disease) Hypertension Migraines Home Medications ?Medication ?Instructions ?Recorded ?Last Taken ?Type ergocalciferol (vitamin D2) 1,250 1 cap PO FR SUPPLEMENT 01/21/20 01/13/23 History mcg (50,000 unit) capsule montelukast 10 mg tablet 10 mg PO DAILY@1700 ALLERGIES 01/21/20 05/12/25 History ascorbic acid (vitamin C) 500 mg 500 mg PO DAILY vitamin 09/07/22 01/19/23 History tablet (Vitamin C) cyclobenzaprine 5 mg tablet 5 mg PO QHS pain 01/20/23 01/19/23 History atorvastatin 20 mg tablet 20 mg PO QHS #30 tabs 01/21/23 Unknown Rx loratadine 10 mg tablet 10 mg PO DAILY@1700 PRN allergy 30 01/21/23 05/12/25 Rx days #0 tabs aspirin 81 mg tablet,delayed 81 mg PO DAILY 03/15/23 Unknown History release sucralfate 1 gram tablet 1 g PO BID #60 tabs 01/29/24 05/12/25 Rx fluticasone fur. 100 mcg-umeclid 1 ea inhalation QDAY 02/07/25 Unknown History 62.5 mcg-vilant 25 mcg inhalat.powder (Trelegy Ellipta) fluticasone propionate 50 2 spray intranasal QHS 02/07/25 05/12/25 History mcg/actuation nasal spray,suspension ipratropium 0.5 mg-albuterol 3 mg 3 ml inhalation Q8 PRN wheezing 02/07/25 05/12/25 History (2.5 mg base)/3 mL nebulization soln lisinopril 20 mg tablet 20 mg PO QDAY 02/07/25 05/13/25 09:00 History metformin 500 mg tablet,extended 500 mg PO QDAY 02/07/25 05/12/25 History release 24 hr metoprolol succinate 25 mg 25 mg PO QDAY 02/07/25 05/12/25 History tablet,extended release 24 hr multivitamin 1 tab PO QDAY 02/07/25 05/12/25 History nebulizers (Compact Compressor 02/07/25 Unknown History Nebulizer) triamcinolone acetonide 0.1 % 1 applic topical BID PRN itch 02/07/25 Unknown History topical cream ondansetron HCl 4 mg tablet 4 mg PO Q8H PRN nausea and 03/25/25 05/12/25 Rx vomiting #30 tabs omeprazole 40 mg capsule,delayed 40 mg PO BID #90 caps 05/29/25 Unknown Rx release famotidine 40 mg tablet 40 mg PO QHS #30 tabs 06/17/25 Unknown Rx ciprofloxacin HCl 500 mg tablet 500 mg PO BID #14 tabs 07/16/25 Unknown Rx (Cipro) hydrocortisone acetate 25 mg 25 mg [place] BID #12 ea 07/16/25 Unknown Rx rectal suppository (Anusol-HC) metronidazole 500 mg tablet 500 mg PO TID #21 tabs 07/16/25 Unknown Rx Allergy/AdvReac Type Severity Reaction Status Date / Time latex Allergy Intermediate Other Verified 07/16/25 17:43 aspirin Allergy Vomiting Verified 07/16/25 17:43 Family History Father Diabetes Surgical History History of mandibular surgery H/O shoulder surgery H/O: hysterectomy Social History Smoking Status: Former smoker how long ago did patient quit smokin second hand exposure: Yes alcohol intake: former substance use type: does not use ROS ROS ED ROS Narrative Review of systems positive for nausea and vomiting-resolved. Positive bright red blood per rectum. No chest pain or shortness of breath, no lightheadedness or syncope. Does not take blood thinners. EXAM Physical Exam Narrative Exam Narrative: Afebrile. Vital signs noted. Nontoxic-appearing. Cardiovascular examination reveals intermittent tachycardia that is regular. Lungs are clear to auscultation bilaterally. The abdomen is soft with minimal tenderness to palpation to the bilateral lower quadrants, no guarding or rebound, positive bowel sounds. Neurological examination nonfocal, nonlateralizing. No pallor of skin noted. Const Vital Signs: 07/16/25 17:43 07/16/25 19:42 07/16/25 19:56 Temperature 98.6 F Temperature Source Oral Pulse Rate 103 H 86 Pulse Rate [Lying] 84 Pulse Rate [Sitting (for 1 minute prior to obtaining)] 91 Pulse Rate [Standing (for 1 minute prior to obtaining)] 95 Respiratory Rate 20 H 16 Blood Pressure 142/90 H 150/102 H Blood Pressure [Lying] 137/80 H Blood Pressure [Sitting (for 1 minute prior to obtaining)] 143/88 H Blood Pressure [Standing (for 1 minute prior to obtaining)] 150/102 H Blood Pressure Mean 107 118 Blood Pressure Mean [Lying] 99 Blood Pressure Mean [Sitting (for 1 minute prior to obtaining)] 106 Blood Pressure Mean [Standing (for 1 minute prior to obtaining)] 118 Pulse Ox 99 98 Oxygen Delivery Method Room Air Room Air MDM MDM MDM Narrative Medical decision making narrative: The differential diagnosis includes but not limited to diverticular bleed versus AV malformation versus internal hemorrhoid. History and physical does not support brisk upper GI bleeding. She is not having hematemesis. She does not have history of ulcerative colitis or Crohn disease. Comprehensive workup was pursued. I do feel CT imaging is indicated. Anoscopy will also be performed. I will check her hemoglobin to see if she has anemia requiring transfusion but clinically she does not look tolerated. There is no central cyanosis. Orthostatics are negative. I reviewed her laboratory work and she has normal white count at 9.6, hemoglobin 14.2, hematocrit 43.6, platelet count normal at 218. CMP is remarkable for creatinine low at 0.61 with BUN of 14, glucose elevated at 157 but normal anion gap of 13. Normal sodium and potassium. LFTs slightly elevated at AST of 49 and ALT of 57 which I think is nonspecific, alk phos 113. Lipase normal at 25. Chaperoned anoscopy was performed and there is evidence of internal hemorrhoid with previous excoriation and bleeding. I do feel that this was probably the cause of her bright red blood per rectum. However, in review of the CT scan there is distal transverse colon and descending colon inflammation consistent with colitis. There was no blood above the anoscope. As she has no active bleeding and a normal hemoglobin with negative orthostatics, I do not feel that she requires admission. I will write her a prescription for Anusol HC suppositories. I will discuss patient with Dr. Dueñas her stator plate washer to see if she needs to be started on antibiotics. I discussed patient with Dr. Dueñas who agrees with Buster and Rosy for the next 7 days. She should follow-up with him in the next 5 to 7 days. She will return with fever, increased pain, increased rectal bleeding, new or worsening symptoms. Disposition is discharged home in stable condition. History & Record Review Discussion w/independent historian: Patient Additional record(s) reviewed:: Prior ED visit (Noncontributory to current chief complaint) Lab Data Attestation: I reviewed the patient's lab results. Labs: Laboratory Results - last 24 hr 07/16/25 18:39 WBC 9.6 RBC 5.14 Hgb 14.2 Hct 43.6 MCV 84.8 MCH 27.6 MCHC 32.6 RDW Std Deviation 43.8 RDW Coeff of K[place] 14.2 Plt Count 218 MPV 10.7 Immature Gran % (Auto) 0.200 Neut % (Auto) 74.7 H Lymph % (Auto) 17.9 L [place] % (Auto) 6.1 Eos % (Auto) 0.6 Baso % (Auto) 0.5 Absolute Neuts (auto) 7.2 Absolute Lymphs (auto) 1.71 Nucleated RBC % 0 Sodium 141 Potassium 4.1 Chloride 103 Carbon Dioxide 25.2 Anion Gap 13 BUN 14 Creatinine 0.61 L Estim Creat Clear Calc 68.73 Est GFR (MDRD) Non-Af 98 BUN/Creatinine Ratio 23.5 H Glucose 157 H Calcium 9.8 Total Bilirubin 0.54 AST 49 H ALT 57 H Alkaline Phosphatase 113 H Total Protein 6.8 Albumin 4.4 Globulin 2.4 Albumin/Globulin Ratio 1.9 Lipase 25 Radiography Diagnostic Testing: Clinical Impression(s) from Imaging Studies Abdomen/Pelvis CT 07/16/25 19:37 IMPRESSION: Long-segment wall thickening and mild adjacent fat stranding of the distal transverse and descending colon, consistent with nonspecific colitis. Correlate clinically and consider follow-up imaging if symptoms persist or worsen. Colonic diverticulosis without evidence of diverticulitis. Hepatic steatosis. No evidence of perforation, abscess, or bowel obstruction. Reading Location: [address] Management Discussion w/another healthcare provider: Environmental Services Specialist (Dr. Dueñas, gastroenterology) Discharge Plan Triage Chief Complaint: GI Bleed ED Provider: Jeffery Whittaker Dx/Rx/DC Orders Clinical Impression: Colitis, Rectal bleeding, Internal hemorrhoid, bleeding Instructions: ED Understanding Colitis, ED Hemorrhoids Prescriptions: New ciprofloxacin HCl [Cipro] 500 mg tablet 500 mg PO BID Qty: 14 0RF metronidazole 500 mg tablet 500 mg PO TID Qty: 21 0RF hydrocortisone acetate [Anusol-HC] 25 mg suppository 25 mg [place] BID Qty: 12 0RF No Action aspirin 81 mg tablet,delayed release (DR/EC) 81 mg PO DAILY sucralfate 1 gram tablet 1 g PO BID Qty: 60 10RF fluticasone propionate 50 mcg/actuation spray,suspension 2 spray intranasal QHS lisinopril 20 mg tablet 20 mg PO QDAY metoprolol succinate 25 mg tablet extended release 24 hr 25 mg PO QDAY triamcinolone acetonide 0.1 % cream 1 applic topical BID PRN (Reason: itch) Trelegy Ellipta 100-62.5-25 mcg blister with device 1 ea inhalation QDAY ipratropium-albuterol 0.5 mg-3 mg(2.5 mg base)/3 mL solution for nebulization 3 ml inhalation Q8 PRN (Reason: wheezing) (DME) nebulizers [Compact Compressor Nebulizer] Misc See Rx Instructions .Route Rx Instructions: As directed metformin 500 mg tablet extended release 24 hr 500 mg PO QDAY multivitamin Tablet 1 tab PO QDAY ondansetron HCl 4 mg tablet 4 mg PO Q8H PRN (Reason: nausea and vomiting) Qty: 30 0RF omeprazole 40 mg capsule,delayed release(DR/EC) 40 mg PO BID Qty: 90 2RF montelukast 10 MG tablet 10 mg PO DAILY@1700 ergocalciferol (vitamin D2) 1,250 mcg (50,000 unit) capsule 1 cap PO FR Patient Comments: TAKE 1 CAPSULE EVERY WEEK ascorbic acid (vitamin C) [Vitamin C] 500 mg Tablet 500 mg PO DAILY cyclobenzaprine 5 mg tablet 5 mg PO QHS Patient Comments: TAKE 1 TABLET BY MOUTH AT BEDTIME NEEDED for muscle pain atorvastatin 20 mg tablet 20 mg PO QHS Qty: 30 2RF loratadine 10 mg tablet 10 mg PO DAILY@1700 PRN (Reason: allergy) 30 Days Qty: 0 0RF famotidine 40 mg tablet 40 mg PO QHS Qty: 30 2RF Primary Care Provider: Yenny Perez Referrals: Bob Dueñas DO [Med Staff - Active Staff, Gastroenterology] - 5-7 Days Yenny Perez, UNDERTAKER ASSISTANT-C [Primary Care Provider, Family Practice] Activity Restrictions/Additional Instructions: Take all the antibiotics as directed for the next week. Anusol suppositories twice a day. Follow-up with gastroenterology. Return to the emergency department with increased bleeding, fever, increased abdominal pain, new or worsening symptoms. Print Language: [place] Disposition Disposition: Home, Self Care
[2025-07-16] MEDS: 0.9% Normal Saline (1000mL) 1,000 ML 999 ML IV (18:35)
[2025-07-16 18:58] LABS: Hematocrit 43.6 % (37-47); Hemoglobin 14.2 g/dL (12.0-15.0); Immature Granulocytes Count 0.020 X10^3/uL (0.0-0.0); Mean Corp Hgb Conc 32.6 g/dL (32-36); Mean Corpuscular Volume 84.8 fL (81-99); Mean Platelet Vol. 10.7 fl (6.2-12.0); NRBC Flagged by Analyzer 0 % (0-5); Platelet Count 218 K/mm3 (150-450); RBC Distribution Width CV 14.2 % (11.6-14.6); RBC Distribution Width SD 43.8 fl (35.1-43.9); Red Blood Count 5.14 M/mm3 (4.2-5.4); White Blood Count 9.6 K/mm3 (4.4-11.0)
[2025-07-16 19:18] LABS: AST(SGOT) 49 U/L (<=31); Alanine Aminotransfer ALT/SGPT 57 U/L (<=34); Albumin, Serum 4.4 g/dL (3.4-4.8); Alkaline Phosphatase 113 U/L (35-104); Anion Gap 13 (5-15); BUN 14 mg/dL (4-19); BUN/Creat Ratio 23.5 RATIO (10-20); Calcium,Total 9.8 mg/dL (7.6-11.0); Carbon Dioxide 25.2 mmol/L (21.0-32.0); Chloride 103 mmol/L (98-108); Estimated Creatinine Clearance 68.73 ml/min (50-250); Globulin 2.4 g/dL (2.2-4.2); Glucose 157 mg/dL (70-99); Lipase 25 U/L (13-75); Potassium 4.1 mmol/L (3.3-5.1)
--- NOTE | 2025-07-16 19:37 | CT_ITS ---
PROCEDURE: ABDOMEN/PELVIS W IV CONT ONLY 07/16/2025 REASON FOR EXAM: PAIN TECHNIQUE: Procedure Code: [id number] Modality: CT Procedure: ABDOMEN/PELVIS W IV CONT ONLY Coronal and Sagittal reconstruction series were provided. One or more dose reduction techniques were used (e.g., Automated exposure control, adjustment of the mA and/or kV according to patient size, use of iterative reconstruction technique. FINDINGS: The lung bases are clear. The peripheral soft tissues unremarkable. No acute osseous abnormalities. Mild atherosclerosis. Normal caliber abdominal aorta. Hypodense liver suspicious for steatosis. The gallbladder is unremarkable. The pancreas, spleen, and adrenals are unremarkable. Symmetric enhancement of the bilateral kidneys. Urinary bladder is unremarkable. Colonic diverticulosis. Long segment wall thickening of the distal transverse and descending colon with mild adjacent fat stranding suspicious for nonspecific colitis. CT/Abdomen/Pelvis W IV Cont ONLY IMPRESSION: Long-segment wall thickening and mild adjacent fat stranding of the distal merrill sverse and descending colon, consistent with nonspecific colitis. Correlate clinically and consider follow-up imaging if sym ptoms persist or worsen. Colonic diverticulosis without evidence of diverticulitis. Hepatic steatosis. No evidence of perforation, abscess, or bowel obstruction. Reading Location: [id number]
[2025-07-16 19:42] VITALS: BP 150/102; PULSE 86; RESP 16; O2SAT 98
[2025-07-16 19:56] VITALS: BP 137/80; BP 143/88; BP 150/102; PULSE 84; PULSE 91; PULSE 95
[2025-07-16 21:51] VITALS: BP 152/82; PULSE 85; RESP 18; O2SAT 99
[2025-07-16 21:56] VITALS: BP 152/82; PULSE 85; RESP 18; TEMP 36.6; O2SAT 99
== END 2025-07-16 21:59 | disposition home or self-care (01) ==
PROVIDERS: Emergency Provider Emergency Medicine; PCP Nurse Practitioner Family; Visit Provider Emergency Medicine
DX: K52.9 Noninfective gastroenteritis and colitis, unspecified (principal); J44.9 Chronic obstructive pulmonary disease, unspecified; E11.65 Type 2 diabetes mellitus with hyperglycemia; Z87.891 Personal history of nicotine dependence; I10 Essential (primary) hypertension; K21.9 Gastro-esophageal reflux disease without esophagitis; K64.8 Other hemorrhoids
CPT/HCPCS: 46600; 74177; 80053; 83690; 85025; 96360; 96361; 99285; Q9967

== ENCOUNTER → 2025-08-26 | Outpatient (CLI) | payer MEDICARE, SELFPAY ==
[2025-08-26 17:08] LABS: Hematocrit 45.0 % (37-47); Hemoglobin 14.3 g/dL (12.0-15.0); Immature Granulocytes Count 0.030 X10^3/uL (0.0-0.0); Mean Corp Hgb Conc 31.8 g/dL (32-36); Mean Corpuscular Volume 86.9 fL (81-99); Mean Platelet Vol. 11.4 fl (6.2-12.0); NRBC Flagged by Analyzer 0 % (0-5); Platelet Count 263 K/mm3 (150-450); RBC Distribution Width CV 14.7 % (11.6-14.6); RBC Distribution Width SD 47.0 fl (35.1-43.9); Red Blood Count 5.18 M/mm3 (4.2-5.4); White Blood Count 7.8 K/mm3 (4.4-11.0)
[2025-08-26 17:44] LABS: AST(SGOT) 62 U/L (<=31); Alanine Aminotransfer ALT/SGPT 60 U/L (<=34); Albumin, Serum 4.6 g/dL (3.4-4.8); Alkaline Phosphatase 115 U/L (35-104); Anion Gap 15 (5-15); BUN 19 mg/dL (4-19); BUN/Creat Ratio 29.6 RATIO (10-20); Calcium,Total 9.8 mg/dL (7.6-11.0); Carbon Dioxide 21.6 mmol/L (21.0-32.0); Chloride 102 mmol/L (98-108); Globulin 2.5 g/dL (2.2-4.2); Glucose 159 mg/dL (70-99); Potassium 4.2 mmol/L (3.3-5.1)
--- OUTSIDE RECORDS SUMMARY | 2025-08-26 18:24 | XMS RPT_ITS | CCD ---
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 L501.2450 ####[facility] [address] [place], [address] GAP 13 Normal 5-15 [facility] Comment on above: Performed By: #### L 100.0100, L500.4050, L501.2450 ####[facility] [address] [place], [address] GFR/1.73 sq M.predicted among non-blacks MDRD (S/P/Bld) [Vol rate/Area] 98 mL/min/{1.73_m2} Normal >60 [facility] Comment on above: Result Comment: mL/m in/1.73m2 CKD-EPI Creatinine Equation (2020) Performed By: #### L 100.0100, L500.4050, L501.2450 ####[facility] [address] [place], [address] Globulin (S) [Mass/Vol] 2.4 g/dL Normal 2.2-4.2 [facility] Comment on above: Performed By: #### L 100.0100, L500.4050, L501.2450 ####[facility] [address] [place], [address] Glucose [Mass/Vol] 157 mg/dL High 70-99 [facility] Comment on above: Performed By: #### L 100.0100, L500.4050, L501.2450 ####[facility] [address] [place], [address] Potassium [Moles/Vol] 4.1 mmol/L Normal 3.3-5.1 [facility] Comment on above: Performed By: #### L 100.0100, L500.4050, L501.2450 ####[facility] [address] [place], [address] Sodium [Moles/Vol] 141 mmol/L Normal 133-145 [facility] Comment on above: Performed By: #### L 100.0100, L500.4050, L501.2450 ####[facility] [address] [place], [address] T PROT 6.8 g/dL Normal 5.9-8.4 [facility] Comment on above: Performed By: #### L 100.0100, L500.4050, L501.2450 ####[facility] [address] [place], [address] Urea nitrogen [Mass/Vol] 14 mg/dL Normal 4-19 [facility] Comment on above: Performed By: #### L 100.0100, L500.4050, L501.2450 ####[facility] [address] [place], [address] Emergency Department Summary on 07-16-2025 Emergency Department Summary [facility] Medical Records Department [address] [place] [address] Emergency Department Summary 07/16/25 MR#: [id number] Acct: [id number] Name: BRANDI SAUCEDA ASHLEY Rep #: [id number] : 1960 65 From: Jeffery Whittaker MD PCP: RONEY Reyes, DULITE MACHINE BLUER-C Status:REG ER Location: ED HPI HPI - GI History of Present Illness Chief Complaint: GI Bleed Narrative Narrative: 65-year-old female presents with bright red blood per rectum that began early this morning. She states yesterday evening started having nausea and vomiting. She denies any hematemesis. She then started having bowel movements and bright red blood per rectum. She does not take any blood thinners. She is prediabetic. She does not take aspirin or ibuprofen/NSAIDs. She complains of abdominal pain in the bilateral lower quadrants as well. No exacerbating or alleviating factors. She was concerned because of the bright red blood per rectum especially with bowel movements. She denies any exacerbating or alleviating factors. She does state that she had colonoscopy within the last [address] Dueñas, and he did not find any diverticuli or abnormalities. [facility] Medical History Edentulism, complete Dietary restriction Non-smoker [...] mg tablet 10 mg PO DAILY@1700 ALLERGIES 01/0105/12/25 History ascorbic acid (vitamin C) 500 mg [...] PRN itch 06/26 Unknown History topical cream ondansetron HCl 4 mg tablet 4 mg PO Q8H PRN nausea and 03/25/2 5 05/12/25 Rx vomiting #30 tabs omeprazole 40 mg capsule,delayed 40 mg PO BID #90 caps 05/29/25 Unk nown Rx release famotidine 40 mg tablet 40 mg PO QHS #30 tabs 06/17/25 Unk nown Rx ciprofloxacin HCl 500 mg tablet 500 mg PO BID #14 tabs 07/16/25 Un known Rx (Cipro) hydrocortisone acetate 25 mg 25 mg [place] BID #12 ea 07/16/25 Unkno wn Rx rectal suppository (Anusol-HC) metronidazole 500 mg tablet 500 mg PO TID #21 tabs 07/16/25 Un known Rx Allergy/AdvReac Type Severity Reaction Status Date / Time latex Allergy Intermediate Other Verified 07/16/25 17:43 aspirin Allergy Vomiting Verified 07/16/25 17:43 Family History Father Diabetes Surgical History History of mandibular surgery H/O shoulder surgery H/O: hysterectomy Social History Smoking Status: Former smoker how long ago did patient quit smokin second hand exposure: Yes alcohol intake: former substance use type: does not use ROS ROS ED ROS Narrative Review of systems positive for nausea and vomiting-resolved. Positive bright red blood per rectum. No chest pain or shortness of breath, no lightheadedness or syncope. Does not take blood thinners. EXAM Physical Exam Narrative Exam Narrative: Afebrile. Vital signs noted. Non (more content not included)... Normal [facility] Eosinophil percentageOrdered By: Jeffery Whittaker on 07-16-2025 Eosinophils/100 WBC (Bld) 0.6 % 0-5 [facility] Erythrocyte distribution wid th ratioOrdered By: Jeffery Whittaker on 07-16-2025 Erythrocyte distribution width (RBC) [Ratio] 14.2 % 11.6-14.6 [facility] Erythrocyte distribution wid th standard deviationOrdered By: Jeffery Whittaker on 07-16-2025 Erythrocyte distribution width (RBC) [Ratio] 43.8 fl 35.1-43.9 [facility] Glomerular filtration rate ( GFR) estimation/1.73 sq m using serum, plasma, or whole bOrdered By: Jeffery Whittaker on 07-16-2025 GFR/1.73 sq M.predicted among non-blacks MDRD (S/P/Bld) [Vol rate/Area] 98 mL/min/{1.73_m2} >60 [facility] Comment on above: mL/min/1.73m2 CKD-EP I Creatinine Equation (2020) Hematocrit Auto (Bld) [Volum e fraction]Ordered By: Jeffery Whittaker on 07-16-2025 Hematocrit (Bld) [Volume fraction] 43.6 % 37-47 [facility] Hemoglobin measurementOrdere d By: Jeffery Whittaker on 07-16-2025 Hemoglobin (Bld) [Mass/Vol] 14.2 g/dL 12.0-15.0 [facility] Immature granulocytes/100 WB C Auto (Bld)Ordered By: Jeffery Whittaker on 07-16-2025 Immature granulocytes/100 WBC (Bld) 0.200 % 0.0-0.9 [facility] Comment on above: IG% - Immature Granu locytes (promyelocytes, myelocytes and metamyelocytes) > 1% indicates that a LEFT SHIFT is Present. Laboratory - Chemistry and C hemistry - challengeOrdered By: Jeffery Whittaker on 07-16-2025 AST [Catalytic activity/Vol] 49 U/L High <32 [facility] Lipaseon 07-16-2025 Lipase [Catalytic activity/Vol] 25 U/L Normal 13-75 [facility] Comment on above: Result Comment: Plea note: LIPASE revised reference range effective 23. New Lipase methodology. Expected to produce lower values than the previous assay method. NEW Reference Range: 13 - 75 U/L Performed By: #### L 100.0100, L500.4050, L501.2450 ####[facility] [address] [place], [address] Lipase measurementOrdered By : Jeffery Whittaker on 07-16-2025 Lipase [Catalytic activity/Vol] 25 U/L 13-75 [facility] Comment on above: Please note:LIPASE r evised reference range effective 23. New Lipase methodology. Expected to produce lower values than the previous assay method. NEW Reference Range: 13 - 75 U/L MCV (mean corpuscular volume ) determinationOrdered By: Jeffery Whittaker on 07-16-2025 MCV (RBC) [Entitic vol] 84.8 fL 81-99 [facility] Mean corpuscular hemoglobin (MCH) determinationOrdered By: Jeffery Whittaker on 07-16-2025 MCH (RBC) [Entitic mass] 27.6 pg 27.0-32.0 [facility] Mean corpuscular hemoglobin concentration (MCHC) determinationOrdered By: Jeffery Whittaker on 07-16-2025 MCHC (RBC) [Mass/Vol] 32.6 g/dL 32-36 [facility] Mean platelet volume determi nationOrdered By: Jeffery Whittaker on 07-16-2025 Platelet mean volume (Bld) [Entitic vol] 10.7 fL 6.2-12.0 [facility] Monocyte percentageOrdered B y: Jeffery Whittaker on 07-16-2025 Monocytes/100 WBC (Bld) 6.1 % 0-10 [facility] Neutrophil percentageOrdered By: Jeffery Whittaker on 07-16-2025 Neutrophils/100 WBC (Bld) 74.7 % High 47-70 [facility] Nucleated red blood cell per centageOrdered By: Jeffery Whittaker on 07-16-2025 Nucleated RBC/100 WBC (Bld) [Ratio] 0 % 0-5 [facility] Platelet countOrdered By: Lance Whittaker on 07-16-2025 Platelets (Bld) [#/Vol] 218 10*3/uL 150-450 [facility] Potassium measurement (mass/ volume)Ordered By: Jeffery Whittaker on 07-16-2025 Potassium (Unsp spec) [Mass/Vol] 4.1 mmol/L 3.3-5.1 [facility] RBC Auto (Bld) [#/Vol]Ordere d By: Jeffery Whittaker on 07-16-2025 RBC (Bld) [#/Vol] 5.14 10*6/uL 4.2-5.4 [facility] Serum creatinine measurement (mass/volume)Ordered By: Jeffery Whittaker on 07-16-2025 Creatinine [Mass/Vol] 0.61 mg/dL Low 0.70-1.20 [facility] Serum globulin measurementOr dered By: Jeffery Whittaker on 07-16-2025 Globulin (S) [Mass/Vol] 2.4 g/dL 2.2-4.2 [facility] Serum glucose measurement (m ass/volume)Ordered By: Jeffery Whittaker on 07-16-2025 Glucose [Mass/Vol] 157 mg/dL High 70-99 [facility] Serum or plasma alanine coto otransferase (ALT) measurementOrdered By: Jeffery Whittaker on 07-16-2025 ALT [Catalytic activity/Vol] 57 U/L High <35 [facility] Serum or plasma albumin faizan urement (mass/volume)Ordered By: Jeffery Whittaker on 07-16-2025 Albumin [Mass/Vol] 4.4 g/dL 3.4-4.8 [facility] Serum or plasma albumin/glob ulin mass ratioOrdered By: Jeffery Whittaker on 07-16-2025 Albumin/Globulin [Mass ratio] 1.9 {ratio} 0.9-2.4 [facility] Serum or plasma alkaline hillary sphatase measurementOrdered By: Jeffery Whittaker on 07-16-2025 ALP [Catalytic activity/Vol] 113 U/L High 35-104 [facility] Serum or plasma calcium faizan urement (mass/volume)Ordered By: Jeffery Whittaker on 07-16-2025 Calcium [Mass/Vol] 9.8 mg/dL 7.6-11.0 [facility] Serum or plasma urea nitroge n measurement (mass/volume)Ordered By: Jeffery Whittaker on 07-16-2025 Urea nitrogen [Mass/Vol] 14 mg/dL 4-19 [facility] Sodium levelOrdered By: Jeffery Whittaker on 07-16-2025 Sodium [Moles/Vol] 141 mmol/L 133-145 [facility] Total proteinOrdered By: Leonila Whittaker on 07-16-2025 Protein [Mass/Vol] 6.8 g/dL 5.9-8.4 [facility] White blood cell (WBC) count Ordered By: Jeffery Whittaker on 07-16-2025 WBC (Bld) [#/Vol] 9.6 10*3/uL 4.4-11.0 [facility] Gastroenterology Visit Repor ton 05-29-2025 Gastroenterology Visit Report [facility] Gastroenterology [address] [place] [address] OFFICE VISIT Date of Service: 05/29/25 MR#: [id number] Acct: [id number] Name: BRANDI SAUCEDA ASHLEY Rep #: [id number] : 1960 Provider: JOSEPHINE Lemos Age/Sex: 64/F Location: [facility] Status: Signed Intake Vital Signs 03/25/25 14:32 [...] % 1 applic topical BID PRN itch 05/0 06/2605/29/25 History topical cream famotidine 40 mg tablet 40 mg PO QHS #30 tabs 03/25/25 Rx ondansetron HCl 4 mg tablet 4 mg PO Q8H PRN nausea and 5 05/29/25 Rx vomiting #30 tabs omeprazole 40 mg capsule,delayed 40 mg PO BID #90 caps 05/29/25 Rx release Have you fallen in the past year?: No PFSH Medical History Edentulism, complete Dietary restriction [...] the office today for follow-up. *BGI established 6 with referral from pulmonology for upper abdominal/chest/epigas tric pain/burning with sensation of food sticking and morning nausea with intermittent heartburn; PPI started with resolution of emesis. No health insurance making EGD cost prohibitive. Continue protonix, start sucralfate. OV 11. PCP stopped Carafate. While taking Carafate she has a resolution of symptoms, with stop of Carafate she is now having nausea and upset stomach. PPI continues. Denies marijuana, cigarette and alcohol use. OV 4.24 pt reports daily N/V since her PCP took her off carafate. Pt reports that she occasionally has trouble swallowing. Pt reports that she has 3-4 formed bm per day. Pt continues taking pantoprazole.Continue pantoprazole 40 mg, ok to take it QAM to save costs, but can increase back to BID if needed. Add sucralfate bid for a month, [facility] f/u 2 mos 6.24.25 OV She reports being on pantoprazole daily and sucralfate but it's not working. She reports daily nausea, uses motion sickness medicine from OTC, and epigastric pain from heartburn. She denies emesis, difficulty swallowing, reflux, excess gas, constipation, diarrhea, hematochezia, an (more content not included)... Normal [facility] Bedside Glucoseon 05-13-2025 FINGERSTICK GLU 103 mg/dL Normal 74-106 [facility] Comment on above: Result Comment: LAURA HAYNES OF PATIENT CARE PER NURSING PROTOCOL Performed By: #### L 501.080 ####[facility] [address] [place], [address] Colonoscopy Reporton 025 Colonoscopy Report [facility] Medical Records Department [address] [facility] [place] [address] Colonoscopy Report MR#: [id number] Acct: [id number] Name: BRANDI SAUCEDA ASHLEY Rep #: [id number] : 1960 64 From: Bob Dueñas DO PCP: RONEY Reyes, DULITE MACHINE BLUER-C Status:REG [facility] Patient Name: Brandi Sauceda Procedure Date: 05/13/2025 2:16 PM Date of : 1960 Age: 64 Procedure: Colonoscopy Indications: Abdominal pain in the left lower quadrant, Clinically significant diarrhea of unexplained origin Providers: Bob Dueñas DO Referring MD: Yenny Amanda, Cabinet And Trim Installer-c Medicines: Monitored Anesthesia Care Patient Profile: This [...] for surveillance. Procedure Code(s): --- Professional --- 13450, Colonoscopy, flexible; with biopsy, single or multiple CPT copyright 2021 [employer]. All rights reserved. The codes documented in this report are preliminary and upon composition roll maker and cutter review may be revised to meet current compliance requirements. Bob Dueñas DO 05/13/2025 2:44:52 PM This report has been signed electronically. Number of Addenda: 0 Note Initiated On: 05/13/2025 2:16 PM 05/13/25 1445 Date Bob Dueñas DO Cosigner Signature: Date (if indicated) CC: RONEY DULITE MACHINE BLUER-C Yenny Kauffman; Bob Dueñas DO Date Dictated: 05/13/25 1416 Date Transcribed: Radio Frequency Design Engineer: BRI Signed Normal [facility] EGD Reporton 05-13-2025 EGD Report [facility] Medical Records Department [address] [place] [address] EGD Report MR#: [id number] Acct: [id number] Name: BRANDI SAUCEDA ASHLEY Rep #: [id number] : 1960 64 From: Bob Dueñas DO PCP: RONEY Reyes, DULITE MACHINE BLUER-C Status:REG [facility] Patient Name: Brandi Sauceda Procedure Date: 05/13/2025 1:58 PM Date of : 1960 Age: 64 Procedure: Upper GI endoscopy Indications: Epigastric abdominal pain, Functional Dyspepsia, Dysphagia, Heartburn, Failure to respond to medical treatment Providers: Bob Dueñas DO Referring MD: Yenny Amanda, Cabinet And Trim Installer-c Medicines: Monitored Anesthesia Care Patient Profile: This [...] pathology results. Procedure Code(s): --- Professional --- 73776, Small intestinal endoscopy, enteroscopy beyond second portion of duodenum, not including ileum; with biopsy, single or multiple CPT copyright 2021 [employer]. All rights reserved. The codes documented in this report are preliminary and upon composition roll maker and cutter review may be revised to meet current compliance requirements. Bob Dueñas DO 05/13/2025 2:40:43 PM This report has been signed electronically. Number of Addenda: 0 Note Initiated On: 05/13/2025 1:58 PM 05/13/25 1440 Date Bob Dueñas DO Cosigner Signature: Date (more content not included)... Normal [facility] deOrdered By: Bob Dueñas on 05-13-2025 Glucose [Mass/Vol] 103 mg/dL 74-106 [facility] Comment on above: MANAGEMENT OF PATIEN T CARE PER NURSING PROTOCOL MR/OP.Annelise 05-13-2025 MR/OP.[facility] Medical Records Department [address] [place] [address] Provation Physician Letter MR#: [id number] Acct: [id number] Name: BRANDI SAUCEDA ASHLEY Rep #: [id number] : 1960 64 From: Bob Dueñas DO PCP: RONEY Reyes, DULITE MACHINE BLUER-C Status:REG [facility] 05/13/2025 Yenny Amanda, Cabinet And Trim Installer-c Re : Colonoscopy procedure for Brandi Komal Kauffman This procedure was performed on Tuesday, May [...] DO Cosigner Signature: Date (if indicated) CC: Cecil DULITE MACHINE BLUER-C Yenny Kauffman; Bob Dueñas DO Date Dictated: 05/13/25 1416 Date Transcribed: Radio Frequency Design Engineer: BRI Signed [facility] MR/OP.[facility] Medical Records Department [address] [place] [address] [facility] MR#: [id number] Acct: [id number] Name: BRANDI SAUCEDA ASHLEY Rep #: [id number] : 1960 64 From: Bob Dueñas DO PCP: ORNEY Reyes, DULITE MACHINE BLUER-C Status:REG [facility] 05/13/2025 Yenny Amanda, Cabinet And Trim Installer-c Re : Upper GI endoscopy procedure for Brandi Kauffman This procedure was performed on Tuesday, May [...] been signed electronically. 05/13/25 1440 Date Bob Dueñas DO Cosigner Signature: Date (if indicated) CC: RONEY DULITE MACHINE BLUER-C Yenny Dueñas DO Date Dictated: 05/13/25 1358 Date Transcribed: Radio Frequency Design Engineer: BRI Signed [facility] MR/POSTOP.[facility] 05-13-2025 MR/POSTOP.[facility] Medical Records Department [address] [place] [address] Anesthesia Postop Eval I 05/13/25 1437 MR#: [id number] Acct: [id number] Name: BRANDI SAUCEDA ASHLEY Rep #: [id number] : 1960 64 From: Tevin Cisse PCP: RONEY Reyes, DULITE MACHINE BLUER-C Status:REG SDC Y Race: C Location: [place] [address] Anesthesia: Postop Eval I Current Vital Signs [...] Tevin Samuels Signature: Date CC: Signed Normal [facility] MR/[id number] 05-13-2025 MR/POSTOPAN2 [facility] Medical Records Department [address] [place] [address] Anesthesia Postop Eval II 05/13/25 1520 MR#: [id number] Acct: [id number] Name: KOMALBRANDI Rep #: [id number] : 1960 64 From: Wilma Durham CRNA PCP: RONEY Reyes, DULITE MACHINE BLUER-C Status:REG SDC Y Race: C Location: [place] [address] Anesthesia Postop Eval I Sum Postop Eval [...] Wilma Samuels Signature: Date CC: Signed Normal [facility] Surgery Specimen Level Carlene 05-13-2025 Surgery Specimen Level IV ---- Patient Age/Sex Location Account Attending Physician ---- BRANDI SAUCEDA 64/F EN [id number] Bob Dueñas DO ---- Specimen: [id number] Received: 05/14/25 Status: SILVINA [place] Num: [id number] Spec Type: EGD BIOPSY Subm Dr: Bob [...] Attending Physician ---- BRANDI SAUCEDA 64/F EN [id number] Bob Dueñas DO ---- TOD 05/14/2025 CPT:74704r5 ---- Patient Age/Sex Location Account Attending Physician ---- BRANDI SAUCEDA 64/F EN [id number] Bobomer Dueñas DO ---- Signed (signature on file) Dr. Inga Georges MD 05/19/25 1641 ---- Normal [facility] Comment on above: Performed By: #### P SUIV ####[facility] [address] [place] [address], [address] Pulmonary Visit Reporton Pulmonary Visit Report [facility] of [address] [place] [address] OFFICE VISIT Date of Service: 05/09/25 MR#: [id number] Acct: [id number] Name: BRANDI SAUCEDA Rep #: [id number] : 1960 Provider: Dolores Hunt NP Age/Sex: 64/F Location: [facility] Status: Signed Assessment and Plan Assessment and [...] air Intake Visit Reasons: 3 M FU Lithostripper Required: No DME Vendor: n/a Accompanied by: [...] Rx l (more content not included)... Normal [facility] MR/PAT.[facility] 05-08-2025 MR/PAT.TAB [facility] Medical Records Department [address] [place] [address] PAT - Anesthesia 05/08/25 1323 MR#: [id number] Acct: [id number] Name: BRANDI SAUCEDA Rep #: [id number] : 1960 64 From: Alfredo Ye MD PCP: Yenny Kauffman, C, DULITE MACHINE BLUER-C Status:PRE SDC Y Race: C Location: EN Pre-Assessment Diagnosis/Proposed Procedure Planned Operative Procedure(s): Colonoscopy,EGD Anesthesia History Anesthesia History - billet header: Anesthesia History - billet header Hx Hospitalization No 05/08/25 12:16 Any Problems [...] take am of surgery PONV PONV - billet header: PONV - billet header Female Yes 05/08/25 12:16 HX of Motion [...] 03/25/25 14:32 Respiratory Assessment Respiratory Assessment - billet header: Respiratory Tract Infection Hx - billet header Hx Respiratory Tract Infection No 05/08/25 12:16 STOP Sleep Apnea STOP Sleep Apnea - billet header: STOP Sleep Apnea - billet header Hx Hypertension Yes: ON MEDS 05/08/25 12:16 [...] Tobacco Use History Tobacco Use History - billet header: Tobacco Use History - billet header Tobacco Use Smoking Status Former smoker 05/08/25 12:16 Hx Tobacco Use No 05/08/25 12:16 Years Smoking Packs Smoked per Day Smoking Cessation Date was No - quit smoking greater 05/08/25 12:16 within the last 15 years than 15 years ago Hx Smoking Cessation Date 10/02/07 05/08/25 12:16 Hx Smoking Cessation No 05/08/25 12:16 Counseling Hematologic Medial History Hematologic Hx - billet header: 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 Specify any problems Hx of Preganancy in last 3 No 05/08/25 12:16 Months Nurse Filling Out Transfusion JZOLLCHRISTIANO 05/08/25 12:16 Questions: Date: 05/08/25 05/08/25 12:16 Time: 12:17 05/08/25 12:16 Patient unable to answer at this time (ie. confused, unrespo /Reproduction History /Reproductive History - billet header: /Reproductive Hx- billet header Hx Now No 05/08/25 12:16 Gestational Age (in weeks): EDC: Hx Hx Para Hx Section SAB No 05/08/25 12:16 [facility] Medical History (Updated 05/08/25 @ 12:16 by [...] History atorvast (more content not included)... Normal [facility] Venous Duplex US - Minesh Extre [facility] 05-02-2025 Venous Duplex US - Minesh Extrem [facility] Services [address] [place] [address] Venous Duplex US - Minesh Extrem 05/02/25 1306 MR#: [id number] Acct: [id number] Name: BRANDI SAUCEDA Rep #: [id number] : 1960 64 From: Qasim Sanders MD Attending Dr: Yenny Kauffman, RONEY, DULITE MACHINE BLUER-C Status : REG CLI Ordering Dr: Yenny Kauffman Cecil D[employer] MACHINE BLUER-C Date: 05/02 Location: [facility] Sex: F C [...] report was called and/or faxed to Jamari DULITE MACHINE BLUER-C. VL/Venous Duplex US - Minesh Extrem Interpretation Summary Deep veins of the lower extremities are bilaterally patent and compressible segmentally. There is no evidence of deep vein thrombosis on either side. Valvular competence appears intact within the proximal deep venous systems bilaterally. The great saphenous veins appear bilaterally patent and compressible segmentally. Ordering Physician: Yenny Kauffman Referring Physician: Yenyn Kauffman Performed By: Myrna Felder, RVT 05/02/25 2335 Date Qasim Sanders MD CC: [facility] DULITE MACHINE BLUER-C Yenny Kauffman Date Dictated: 05/02/25 1306 Date Transcribed: 05/02/252334 Radio Frequency Design Engineer: Signed Normal [facility] Venous duplex ultrasound rep ortOrdered By: Qasim Sanders on 05-02-2025 US Ve[facility] Cardi[facility] Services [address] [place] [address] Venous Duplex US - Minesh Extrem 05/02/25 1306 MR#: [id number] Acct: [id number] Name: BRANDI SAUCEDA ASHLEY Rep #:[id number] : 1960 64 From: Qasim Sanders MD Attending Dr: RONEY Reyes, DULITE MACHINE BLUER-C Status: REG CLI Ordering Dr: Yenny Kauffman DULITE MACHINE BLUER-C Date: 05/02/25 Location: [facility] Sex: F C [...] Physician: Yenny Kauffman Performed By: Myrna Felder RVT 05/02/25 3421 Date _ Qasim Sanders MD CC: [facility] FORREST Kauffman ~ Date Dictated: 05/02/25 1306 Date Transcribed: 05/02/252334 Radio Frequency Design Engineer: Signed [facility] Other Absolute lymphocyte countOrd ered By: RNOEY Kauffman on 04-15-2025 Lymphocytes Auto (Unsp spec) [#/Vol] 2.19 10*3/uL 0.83-4.51 [facility] Absolute neutrophil countOrd ered By: [facility] Yenny Kauffman on 04-15-2025 Neutrophils (Bld) [#/Vol] 4.1 10*3/uL 2.0-7.7 [facility] Anion gap in Serum or Plasma Ordered By: [facility] Yenny Kauffman on 04-15-2025 Anion gap [Moles/Vol] 14 mmol/L 02-13 [facility] Automated lymphocyte count a s percentage of total leukocytesOrdered By: [facility] Yenny Kauffman on 04-15-2025 Lymphocytes/100 WBC Auto (Unsp spec) 31.5 % [facility] BUN/creatinine ratioOrdered By: [facility] Yenny Kauffman on 04-15-2025 Urea nitrogen/Creatinine [Mass ratio] 27.8 mg/mg High 07-21 [facility] Basophil percentageOrdered B y: [facility] Yenny Kauffman on 04-15-2025 Basophils/100 WBC (Bld) 0.9 % 0-1 [facility] Bilirubin, totalOrdered By: [facility] Yenny Kauffman on 04-15-2025 Bilirubin [Mass/Vol] 0.57 mg/dL 0.00-1.30 [facility] CBC W/Diff, Automatedon 04-01 Absolute Lymph 2.19 X10 3/uL Normal 0.83-4.51 [facility] Comment on above: Performed By: #### L 501.9520, L503.7505, L300.8000, L100.0100, L500.4050 #### [facility] Laboratory [address] [place], [address] Absolute Neut 4.1 X10 3/uL Normal 2.0-7.7 [facility] Comment on above: Performed By: #### L 501.9520, L503.7505, L300.8000, L100.0100, L500.4050 #### [facility] Laboratory [address] [place], [address] Basophils/100 WBC (Bld) 0.9 % Normal 0-1 [facility] Comment on above: Performed By: #### L 501.9520, L503.7505, L300.8000, L100.0100, L500.4050 #### [facility] Laboratory [address] [place], [address] Eosinophils/100 WBC (Bld) 3.2 % Normal 0-5 [facility] Comment on above: Performed By: #### L 501.9520, L503.7505, L300.8000, L100.0100, L500.4050 #### [facility] Laboratory [address] [place], [address] Erythrocyte distribution width (RBC) [Ratio] 13.9 % Normal 11.6-14.6 [facility] Comment on above: Performed By: #### L 501.9520, L503.7505, L300.8000, L100.0100, L500.4050 #### [facility] [address] [place], [address] Hematocrit (Bld) [Volume fraction] 44.4 % Normal 37-47 [facility] Comment on above: Performed By: #### L 501.9520, L503.7505, L300.8000, L100.0100, L500.4050 #### [facility] Laboratory [address] [place], [address] Hemoglobin (Bld) [Mass/Vol] 14.7 g/dL Normal 12.0-15.0 [facility] Comment on above: Performed By: #### L 501.9520, L503.7505, L300.8000, L100.0100, L500.4050 #### [facility] Laboratory [address] [place], [address] IG% 0.300 Normal 0.0-0.9 [facility] Comment on above: Result Comment: IG% - Immature Granulocytes (promyelocytes, myelocytes and metamyelocytes) > 1% indicates that a LEFT SHIFT is Present. Performed By: #### L 501.9520, L503.7505, L300.8000, L100.0100, L500.4050 #### [facility] Laboratory [address] [place], [address] Lymphocytes/100 WBC (Bld) 31.5 % Normal 19-41 [facility] Comment on above: Performed By: #### L 501.9520, L503.7505, L300.8000, L100.0100, L500.4050 #### [facility] Laboratory [address] [place], [address] MCH (RBC) [Entitic mass] 28.2 pg Normal 27.0-32.0 [facility] Comment on above: Performed By: #### L 501.9520, L503.7505, L300.8000, L100.0100, L500.4050 #### [facility] Laboratory [address] [place], [address] MCHC (RBC) [Mass/Vol] 33.1 g/dL Normal 32-36 [facility] Comment on above: Performed By: #### L 501.9520, L503.7505, L300.8000, L100.0100, L500.4050 #### [facility] Laboratory [address] [place], [address] MCV (RBC) [Entitic vol] 85.1 fL Normal 81-99 [facility] Comment on above: Performed By: #### L 501.9520, L503.7505, L300.8000, L100.0100, L500.4050 #### [facility] Laboratory [address] [place], [address] Monocytes/100 WBC (Bld) 5.9 % Normal 0-10 [facility] Comment on above: Performed By: #### L 501.9520, L503.7505, L300.8000, L100.0100, L500.4050 #### [facility] [address] [place], [address] Neutrophils/100 WBC (Bld) 58.2 % Normal 47-70 [facility] Comment on above: Performed By: #### L 501.9520, L503.7505, L300.8000, L100.0100, L500.4050 #### [facility] Laboratory [address] [place], [address] Nucleated RBC (Bld) [#/Vol] 0 10*3/uL Normal 0-5 [facility] Comment on above: Performed By: #### L 501.9520, L503.7505, L300.8000, L100.0100, L500.4050 #### [facility] Laboratory [address] [place], [address] Platelet mean volume (Bld) [Entitic vol] 10.6 fL Normal 6.2-12.0 [facility] Comment on above: Performed By: #### L 501.9520, L503.7505, L300.8000, L100.0100, L500.4050 #### [facility] Laboratory [address] [place], [address] Platelets (Bld) [#/Vol] 241 10*3/uL Normal 150-450 [facility] Comment on above: Performed By: #### L 501.9520, L503.7505, L300.8000, L100.0100, L500.4050 #### [facility] Laboratory [address] [place], [address] RBC (Bld) [#/Vol] 5.22 10*6/uL Normal 4.2-5.4 [facility] Comment on above: Performed By: #### L 501.9520, L503.7505, L300.8000, L100.0100, L500.4050 #### [facility] Laboratory [address] [place], [address] RDW SD 43.0 fl Normal 35.1-43.9 [facility] Comment on above: Performed By: #### L 501.9520, L503.7505, L300.8000, L100.0100, L500.4050 #### [facility] Laboratory [address] [place], [address] WBC (Bld) [#/Vol] 7.0 10*3/uL Normal 4.4-11.0 [facility] Comment on above: Performed By: #### L 501.9520, L503.7505, L300.8000, L100.0100, L500.4050 #### [facility] Laboratory [address] [place], [address] Carbon dioxide, total [Moles /volume] in Central venous bloodOrdered By: [facility] Yenny Kauffman on 04-15-2025 CO2 [Moles/Vol] 20.4 mmol/L Low 21.0-32.0 [facility] Chloride assayOrdered By: [facility] Yenny Kauffman on 04-15-2025 Chloride [Moles/Vol] 104 mmol/L 98-108 [facility] Comprehensive Metabolic Prof ilon 04-15-2025 Albumin [Mass/Vol] 4.7 g/dL Normal 3.4-4.8 [facility] Comment on above: Performed By: #### L 501.9520, L503.7505, L300.8000, L100.0100, L500.4050 #### [facility] Laboratory [address] [place], [address] Albumin/Globulin [Mass ratio] 1.9 {ratio} Normal 0.9-2.4 [facility] Comment on above: Performed By: #### L 501.9520, L503.7505, L300.8000, L100.0100, L500.4050 #### [facility] [address] [place], [address] ALK PHOS 117 U/L High 35-104 [facility] Comment on above: Performed By: #### L 501.9520, L503.7505, L300.8000, L100.0100, L500.4050 #### [facility] [address] [place], [address] ALT [Catalytic activity/Vol] 46 U/L High <=34 [facility] Comment on above: Performed By: #### L 501.9520, L503.7505, L300.8000, L100.0100, L500.4050 #### [facility] [address] [place], [address] AST [Catalytic activity/Vol] 50 U/L High <=31 [facility] Comment on above: Performed By: #### L 501.9520, L503.7505, L300.8000, L100.0100, L500.4050 #### [facility] [address] [place], [address] Bilirubin [Mass/Vol] 0.57 mg/dL Normal 0.00-1.30 [facility] Comment on above: Performed By: #### L 501.9520, L503.7505, L300.8000, L100.0100, L500.4050 #### [facility] [address] [place], [address] BUN/CRE 27.8 RATIO High 10-20 [facility] Comment on above: Performed By: #### L 501.9520, L503.7505, L300.8000, L100.0100, L500.4050 #### [facility] [address] [place], [address] Calcium [Mass/Vol] 9.6 mg/dL Normal 7.6-11.0 [facility] Comment on above: Performed By: #### L 501.9520, L503.7505, L300.8000, L100.0100, L500.4050 #### [facility] Laboratory [address] [place], [address] Chloride [Moles/Vol] 104 mmol/L Normal 98-108 [facility] Comment on above: Performed By: #### L 501.9520, L503.7505, L300.8000, L100.0100, L500.4050 #### [facility] [address] [place], [address] CO2 [Moles/Vol] 20.4 mmol/L Low 21.0-32.0 [facility] Comment on above: Performed By: #### L 501.9520, L503.7505, L300.8000, L100.0100, L500.4050 #### [facility] [address] [place], [address] Creatinine [Mass/Vol] 0.60 mg/dL Low 0.70-1.20 [facility] Comment on above: Performed By: #### L 501.9520, L503.7505, L300.8000, L100.0100, L500.4050 #### [facility] [address] [place], [address] GAP 14 Normal 5-15 [facility] Comment on above: Performed By: #### L 501.9520, L503.7505, L300.8000, L100.0100, L500.4050 #### [facility] Laboratory [address] [place], [address] GFR/1.73 sq M.predicted among non-blacks MDRD (S/P/Bld) [Vol rate/Area] 100 mL/min/{1.73_m2} Normal >60 [facility] Comment on above: Result Comment: mL/m in/1.73m2 CKD-EPI Creatinine Equation (2020) Performed By: #### L 501.9520, L503.7505, L300.8000, L100.0100, L500.4050 #### [facility] [address] [place], [address] Globulin (S) [Mass/Vol] 2.4 g/dL Normal 2.2-4.2 [facility] Comment on above: Performed By: #### L 501.9520, L503.7505, L300.8000, L100.0100, L500.4050 #### [facility] [address] [place], [address] Glucose [Mass/Vol] 135 mg/dL High 70-99 [facility] Comment on above: Performed By: #### L 501.9520, L503.7505, L300.8000, L100.0100, L500.4050 #### [facility] [address] [place], [address] Potassium [Moles/Vol] 4.2 mmol/L Normal 3.3-5.1 [facility] Comment on above: Performed By: #### L 501.9520, L503.7505, L300.8000, L100.0100, L500.4050 #### [facility] [address] [place], [address] Sodium [Moles/Vol] 138 mmol/L Normal 133-145 [facility] Comment on above: Performed By: #### L 501.9520, L503.7505, L300.8000, L100.0100, L500.4050 #### [facility] [address] [place], [address] T PROT 7.0 g/dL Normal 5.9-8.4 [facility] Comment on above: Performed By: #### L 501.9520, L503.7505, L300.8000, L100.0100, L500.4050 #### [facility] [address] [place], [address] Urea nitrogen [Mass/Vol] 17 mg/dL Normal 4-19 [facility] Comment on above: Performed By: #### L 501.9520, L503.7505, L300.8000, L100.0100, L500.4050 #### [facility] [address] [place], [address] D-Dimer Quantitative (DVT/PE )on 04-15-2025 D-DIMER QUANT 0.27 FEU/ug/m Normal 0.27-0.49 [facility] Comment on above: Result Comment: NORM AL D-Dimer level (<0.50) indicates no DVT or PE. Performed By: #### L 501.9520, L503.7505, L300.8000, L100.0100, L500.4050 #### [facility] Laboratory [address] [place], [place], [address] Eosinophil percentageOrdered By: [facility] Yenny Kauffman on 04-15-2025 Eosinophils/100 WBC (Bld) 3.2 % 0-5 [facility] Erythrocyte distribution wid th ratioOrdered By: [facility] Yenny Kauffman on 04-15-2025 Erythrocyte distribution width (RBC) [Ratio] 13.9 % 11.6-14.6 [facility] Erythrocyte distribution wid th standard deviationOrdered By: [facility] Yenny Kauffman on 04-15-2025 Erythrocyte distribution width (RBC) [Ratio] 43.0 fl 35.1-43.9 [facility] Glomerular filtration rate ( GFR) estimation/1.73 sq m using serum, plasma, or whole bOrdered By: [facility] Yenny Kauffman on 04-15-2025 GFR/1.73 sq M.predicted among non-blacks MDRD (S/P/Bld) [Vol rate/Area] 100 mL/min/{1.73_m2} >60 [facility] Comment on above: mL/min/1.73m2 CKD-EP I Creatinine Equation (2020) Hematocrit Auto (Bld) [Volum e fraction]Ordered By: [facility] Yenny Kauffman on 04-15-2025 Hematocrit (Bld) [Volume fraction] 44.4 % 37-47 [facility] Hemoglobin measurementOrdere d By: [facility] Yenny Kauffman on 04-15-2025 Hemoglobin (Bld) [Mass/Vol] 14.7 g/dL 12.0-15.0 [facility] Immature granulocytes/100 WB C Auto (Bld)Ordered By: [facility] Yenny Kauffman on 04-15-2025 Immature granulocytes/100 WBC (Bld) 0.300 % 0.0-0.9 [facility] Comment on above: IG% - Immature Granu locytes (promyelocytes, myelocytes and metamyelocytes) > 1% indicates that a LEFT SHIFT is Present. L503.7505on 04-15-2025 Natriuretic peptide B (Bld) [Mass/Vol] 45 pg/mL Normal <=900 [facility] Comment on above: Result Comment: Hear t Failure Unlikely: < 300 pg/mL Heart Failure Likely < 50 Years: > 450 pg/mL 50-75 Years: > 900 pg/mL >75 Years: > 1800 pg/mL Performed By: #### L 501.9520, L503.7505, L300.8000, L100.0100, L500.4050 ####[facility] [id number] [place], [address] Laboratory - Chemistry and C hemistry - challengeOrdered By: [facility] Yenny Kauffman on 04-15-2025 AST [Catalytic activity/Vol] 50 U/L High <32 [facility] MCV (mean corpuscular volume ) determinationOrdered By: [facility] Yenny Kauffman on 04-15-2025 MCV (RBC) [Entitic vol] 85.1 fL 81-99 [facility] Mean corpuscular hemoglobin (MCH) determinationOrdered By: [facility] Yenny Kauffman on 04-15-2025 MCH (RBC) [Entitic mass] 28.2 pg 27.0-32.0 [facility] Mean corpuscular hemoglobin concentration (MCHC) determinationOrdered By: [facility] Yenny Kauffman on 04-15-2025 MCHC (RBC) [Mass/Vol] 33.1 g/dL 32-36 [facility] Mean platelet volume determi nationOrdered By: [facility] Yenny Kauffman on 04-15-2025 Platelet mean volume (Bld) [Entitic vol] 10.6 fL 6.2-12.0 [facility] Monocyte percentageOrdered B y: [facility] Yenny Kauffman on 04-15-2025 Monocytes/100 WBC (Bld) 5.9 % 0-10 [facility] Natriuretic peptide.B prohor destin N-Terminal [Mass/volume] in Serum or PlasmaOrdered By: [facility] Yenny Kauffman on 04-15-2025 Natriuretic peptide.B prohormone N-Terminal [Mass/Vol] 45 pg/mL <900 [facility] Comment on above: Heart Failure Unlike ly: < 300 pg/mLHeart Failure Likely< 50 Years: > 450 pg/mL50-75 Years: > 900 pg/mL>75 Years: > 1800 pg/mL Neutrophil percentageOrdered By: [facility] Yenny Kauffman on 04-15-2025 Neutrophils/100 WBC (Bld) 58.2 % 47-70 [facility] Nucleated red blood cell per centageOrdered By: [facility] Yenny Kauffman on 04-15-2025 Nucleated RBC/100 WBC (Bld) [Ratio] 0 % 0-5 [facility] Platelet countOrdered By: [facility] Yenny Kauffman on 04-15-2025 Platelets (Bld) [#/Vol] 241 10*3/uL 150-450 [facility] Potassium measurement (mass/ volume)Ordered By: [facility] Yenny Kauffman on 04-15-2025 Potassium (Unsp spec) [Mass/Vol] 4.2 mmol/L 3.3-5.1 [facility] RBC Auto (Bld) [#/Vol]Ordere d By: [facility] Yenny Kauffman on 04-15-2025 RBC (Bld) [#/Vol] 5.22 10*6/uL 4.2-5.4 [facility] Serum creatinine measurement (mass/volume)Ordered By: [facility] Yenny Kauffman on 04-15-2025 Creatinine [Mass/Vol] 0.60 mg/dL Low 0.70-1.20 [facility] Serum globulin measurementOr dered By: [facility] Yenny Kauffman on 04-15-2025 Globulin (S) [Mass/Vol] 2.4 g/dL 2.2-4.2 [facility] Serum glucose measurement (m ass/volume)Ordered By: [facility] Yenny Kauffman on 04-15-2025 Glucose [Mass/Vol] 135 mg/dL High 70-99 [facility] Serum or plasma alanine coto otransferase (ALT) measurementOrdered By: [facility] Yenny Kauffman on 04-15-2025 ALT [Catalytic activity/Vol] 46 U/L High <35 [facility] Serum or plasma albumin faizan urement (mass/volume)Ordered By: [facility] Yenny Kauffman on 04-15-2025 Albumin [Mass/Vol] 4.7 g/dL 3.4-4.8 [facility] Serum or plasma albumin/glob ulin mass ratioOrdered By: [facility] on 04-15-2025 Albumin/Globulin [Mass ratio] 1.9 {ratio} 0.9-2.4 [facility] Serum or plasma alkaline hillary sphatase measurementOrdered By: [facility] Yenny Kauffman on 04-15-2025 ALP [Catalytic activity/Vol] 117 U/L High 35-104 [facility] Serum or plasma calcium faizan urement (mass/volume)Ordered By: [facility] Yenny Kauffman on 04-15-2025 Calcium [Mass/Vol] 9.6 mg/dL 7.6-11.0 [facility] Serum or plasma urea nitroge n measurement (mass/volume)Ordered By: [facility] Yenny Kauffman on 04-15-2025 Urea nitrogen [Mass/Vol] 17 mg/dL 4-19 [facility] Sodium levelOrdered By: [facility] Yenny Kauffman on 04-15-2025 Sodium [Moles/Vol] 138 mmol/L 133-145 [facility] TSH DL <= 0.005 mIU/L QnOrde red By: [facility] Yenny Kauffman on 04-15-2025 TSH Qn 2.550 uIU/mL 0.300-4.200 [facility] Thyroid Stim Hormone (TSH)on 04-15-2025 TSH 2.550 uIU/mL Normal 0.300-4.200 [facility] Comment on above: Performed By: #### L 501.6278, L503.3565, L300.8000, L100.0100, L500.4050 ####[facility] [id number] [place], [address] Total proteinOrdered By: [facility] Yenny Kauffman on 04-15-2025 Protein [Mass/Vol] 7.0 g/dL 5.9-8.4 [facility] White blood cell (WBC) count Ordered By: [facility] Yenny Kauffman on 04-15-2025 WBC (Bld) [#/Vol] 7.0 10*3/uL 4.4-11.0 [facility] Emergency Department Summary on 04-13-2025 Emergency Department Summary [facility] Medical Records Department [address] [place] [address] Emergency Department Summary 04/13/25 MR#: [id number] Acct: [id number] Name: BRANDI SAUCEDA Rep #: [id number] : 1960 64 From: Juliane BURTON PCP: RONEY Reyes, DULITE MACHINE BLUER-C Status:DEP ER Location: ED HPI History of [...] or coughing. She is tolerating her secretions. [facility] Medical History Right wrist sprain [...] mg PO Q8H PRN nausea and 5 Unknown Rx vomiting #30 tabs Allergy/AdvReac [...] no drool (more content not included)... Normal [facility] Gastric Emptying Studyon Gastric Emptying Study [facility] Imaging Services [address] [place], [place] [id number] Gastric Emptying Study MR#: [id number] Acct: [id number] Name: BRANDI SAUCEDA ASHLEY Rep #: [id number] : 1960 F 64 From: Syed Langston PCP: RONEY Reyes, DULITE MACHINE BLUER-C Status: REG CLI Study: Gastric Emptying Study Date of Exam: 04/10/25 Exam# [id number] Ordering Dr: Jennie Gutierrez [employer] MACH[employer]UER-C PROCEDURE: GASTRIC EMPTYING STUDY 04/10/2025 REASON FOR EXAM: FREQUENT NAUSEA TECHNIQUE: The patient ingested a semi solid meal of oatmeal. There was no vomiting postprandially. Anterior and posterior planar images of the upper abdomen were obtained for 60 minutes. Regions of interest were drawn, and a geometric mean was used to calculate a [id number]. Medications taken in the past 24 hours [...] semi solid phase gastric emptying. Reading Location: [address] CC: FORREST Gutierrez; [facility] FORREST Kauffman Radio Frequency Design Engineer: Signed Normal [facility] Gastroenterology Visit Repor ton 03-25-2025 Gastroenterology Visit Report [facility] Gastroenterology [address] [place] [address] OFFICE VISIT Date of Service: 03/25/25 MR#: [id number] Acct: [id number] Name: BRANDI SAUCEDA ASHLEY Rep #: [id number] : 1960 Provider: FORREST resendiz Age/Sex: 64/F Location: [facility] Status: Signed Intake Vital Signs 02/07/25 08:05 [...] mg tablet 10 mg PO DAILY@1700 ALLERGIES 04/2 10/2103/21/25 History ascorbic acid (vitamin C) 500 mg [...] 20 mg PO QDAY 02/07/25 03/21/25 [employer] metformin 500 mg tablet,extended 500 mg PO QDAY 02/07/25 03/21/25 H istory release 24 hr metoprolol succinate 25 mg 25 mg PO QDAY 02/07/25 03/21/25 [employer] tablet,extended release 24 hr multivitamin 1 tab PO QDAY 02/07/25 03/21/25 [employer] nebulizers (Compact Compressor 02/07/25 03/21/25 History Nebulizer) [...] daily. Continues taking pantoprazole and sucralfate daily. PFS Medical History Right wrist sprain Contusion of [...] bid for a month, [facility] f/u 2 mos 03.25.25 OV She reports being on pantoprazole daily and sucralfate but it's not working. She reports daily nausea, uses motion sickness medicine from OTC, and epigastric pain from heartburn. She denies emesis, d (more content not included)... Normal [facility] Breast imaging reportOrdered By: Fatou Deluca on 03-14-2025 Study report [facility] Imaging Services [address] [place], [place] [address] SCRN MAMM (CAD)W/MARY BETH BILAT MR#: [id number] Acct: [id number] Name: BRANDI SAUCEDA Rep #: [id number] : 1960 F 64 From: Melissa Deluca MD PCP: Yenny Kauffman [place], [employer]C Status: REG CLI Study:SCRN MAMM (CAD)W/MARY BETH BILAT Date of Exa m: 03/14/25 Exam# [id number] Ordering Dr: Yenny Kauffman [facility] [employer] EXAM: SCRN MAMM (CAD)W/MARY BETH BILAT 03/14/2025 [...] be mailed to the patient. Reading Location: [id number] CC: [facility] [employer] Yenny Kauffman ~ Radio Frequency Design Engineer: Signed [facility] SCRN MAMM (CAD)W/MARY BETH BILATo n 03-14-2025 SCRN MAMM (CAD)W/MARY BETH BILAT [facility] Imaging Services [address] [place] [address] SCRN MAMM (CAD)W/MARY BETH BILAT MR#: [id number] Acct: [id number] Name: BRANDI SAUCEDA ASHLEY Rep #: [id number] : 1960 F 64 From: Fatou Deluca MD PCP: Yenny Kauffman [facility], [employer] Status: REG CLI Study: SCRN MAMM (CAD)W/MARY BETH BILAT Date of Exam: 03/02 12/24 Exam# [id number] Ordering Dr: Yenny Kauffman [employer] EXAM: SCRN MAMM (CAD)W/MARY BETH BILAT 03/14/2025 [...] be mailed to the patient. Reading Location: [id number] CC: [facility] [employer] Yenny Kauffman Radio Frequency Design Engineer: Signed Normal [facility] Pulmonary Visit Reporton Pulmonary Visit Report [facility] [place] [address] [place] [address] OFFICE VISIT Date of Service: 02/07/25 MR#: [id number] Acct: [id number] Name: LILYL SAUCEDASanto RAMIREZ Rep #: [id number] : 1960 Provider: Dolores Hunt NP Age/Sex: 64/F Location: [facility].PMW Status: Signed Assessment and Plan Assessment and Plan (1) Chronic bronchitis: Status: Chronic Qualifiers: Chronic bronchitis type: unspecified Qualified Code(s): J42 - Unspecified chronic bronchitis Plan: Suspect COPD, former 38-vvgx-ekyi smoker, quit smoking 22 years ago, verses [...] Reasons: Pt to follow up per PCP Lithostripper Required: No DME Vendor: n/a Accompanied by: Self Is patient in pain?: No Allergies aspirin Allergy (Verified 02/07/25 13:54) Vomiting Medications ???Medication ???Instructions ???Recorded ???Confirmed ???Type ergocalciferol (vitamin D2) 1,250 1 cap PO FR SUPPLEMENT 01/21/20 0 02/07 (more content not included)... Normal [facility] Absolute lymphocyte countOrd ered By: [facility] Yenny Jamari on 01-14-2025 Lymphocytes Auto (Unsp spec) [#/Vol] 2.50 10*3/uL 0.83-4.51 [facility] Absolute neutrophil countOrd ered By: [facility] on 01-14-2025 Neutrophils (Bld) [#/Vol] 2.9 10*3/uL 2.0-7.7 [facility] Anion gap in Serum or Plasma Ordered By: [facility] Kauffman on 01-14-2025 Anion gap [Moles/Vol] 13 mmol/L 02-13 [facility] Automated lymphocyte count a s percentage of total leukocytesOrdered By: [facility] Kauffman on 01-14-2025 Lymphocytes/100 WBC Auto (Unsp spec) 41.7 % High 19-41 [facility] BUN/creatinine ratioOrdered By: [facility] Jamari on 01-14-2025 Urea nitrogen/Creatinine [Mass ratio] 34.4 mg/mg High 10-20 [facility] Basophil percentageOrdered B y: [facility] Jam[facility] on 01-14-2025 Basophils/100 WBC (Bld) 1.2 % High 0-1 [facility] Bilirubin, totalOrdered By: [facility] Yennyjonathan Kauffman on 01-14-2025 Bilirubin [Mass/Vol] 0.61 mg/dL 0.00-1.30 [facility] CBC W/Diff, Automatedon 12-31 Absolute Lymph 2.50 X10 3/uL Normal 0.83-4.51 [facility] Comment on above: Performed By: #### L 100.0100, L501.9985, L500.4050 ####[facility] [address] [place], [address] Absolute Neut 2.9 X10 3/uL Normal 2.0-7.7 [facility] Comment on above: Performed By: #### L 100.0100, L501.9985, L500.4050 ####[facility] [address] [place], [address] Basophils/100 WBC (Bld) 1.2 % High 0-1 [facility] Comment on above: Performed By: #### L 100.0100, L501.9985, L500.4050 ####[facility] [address] [place], [address] Eosinophils/100 WBC (Bld) 1.5 % Normal 0-5 [facility] Comment on above: Performed By: #### L 100.0100, L501.9985, L500.4050 ####[facility] [address] [place], [address] Erythrocyte distribution width (RBC) [Ratio] 14.4 % Normal 11.6-14.6 [facility] Comment on above: Performed By: #### L 100.0100, L501.9985, L500.4050 ####[facility] [address] [place], [address] Hematocrit (Bld) [Volume fraction] 44.6 % Normal 37-47 [facility] Comment on above: Performed By: #### L 100.0100, L501.9985, L500.4050 ####[facility] [address] [place], [address] Hemoglobin (Bld) [Mass/Vol] 14.5 g/dL Normal 12.0-15.0 [facility] Comment on above: Performed By: #### L 100.0100, L501.9985, L500.4050 ####[facility] [address] [place], [address] IG% 0.300 Normal 0.0-0.9 [facility] Comment on above: Result Comment: IG% - Immature Granulocytes (promyelocytes, myelocytes and metamyelocytes) > 1% indicates that a LEFT SHIFT is Present. Performed By: #### L 100.0100, L501.9985, L500.4050 ####[facility] [address] [place], [address] Lymphocytes/100 WBC (Bld) 41.7 % High 19-41 [facility] Comment on above: Performed By: #### L 100.0100, L501.9985, L500.4050 ####[facility] [address] [place], [address] MCH (RBC) [Entitic mass] 27.7 pg Normal 27.0-32.0 [facility] Comment on above: Performed By: #### L 100.0100, L501.9985, L500.4050 ####[facility] [address] [place], [address] MCHC (RBC) [Mass/Vol] 32.5 g/dL Normal 32-36 [facility] Comment on above: Performed By: #### L 100.0100, L501.9985, L500.4050 ####[facility] [address] [place], [address] MCV (RBC) [Entitic vol] 85.1 fL Normal 81-99 [facility] Comment on above: Performed By: #### L 100.0100, L501.9985, L500.4050 ####[facility] [address] [place], [address] Monocytes/100 WBC (Bld) 6.3 % Normal 0-10 [facility] Comment on above: Performed By: #### L 100.0100, L501.9985, L500.4050 ####[facility] [address] [place], [address] Neutrophils/100 WBC (Bld) 49.0 % Normal 47-70 [facility] Comment on above: Performed By: #### L 100.0100, L501.9985, L500.4050 ####[facility] [address] [place], [address] Nucleated RBC (Bld) [#/Vol] 0 10*3/uL Normal 0-5 [facility] Comment on above: Performed By: #### L 100.0100, L501.9985, L500.4050 ####[facility] [address] [place], [address] Platelet mean volume (Bld) [Entitic vol] 10.3 fL Normal 6.2-12.0 [facility] Comment on above: Performed By: #### L 100.0100, L501.9985, L500.4050 ####[facility] [address] [place], [address] Platelets (Bld) [#/Vol] 224 10*3/uL Normal 150-450 [facility] Comment on above: Performed By: #### L 100.0100, L501.9985, L500.4050 ####[facility] [address] [place], [address] RBC (Bld) [#/Vol] 5.24 10*6/uL Normal 4.2-5.4 [facility] Comment on above: Performed By: #### L 100.0100, L501.9985, L500.4050 ####[facility] [address] [place], [address] RDW SD 44.2 fl High 35.1-43.9 [facility] Comment on above: Performed By: #### L 100.0100, L501.9985, L500.4050 ####[facility] [address] [place], [address] WBC (Bld) [#/Vol] 6.0 10*3/uL Normal 4.4-11.0 [facility] Comment on above: Performed By: #### L 100.0100, L501.9985, L500.4050 ####[facility] [address] [place], [address] Carbon dioxide, total [Moles /volume] in Central venous bloodOrdered By: [facility] Yenny Kauffman on 01-14-2025 CO2 [Moles/Vol] 23.8 mmol/L 21.0-32.0 [facility] Chloride assayOrdered By: [facility] Yenny Kauffman on 01-14-2025 Chloride [Moles/Vol] 103 mmol/L 98-108 [facility] Comprehensive Metabolic Prof ilon 01-14-2025 Albumin [Mass/Vol] 4.6 g/dL Normal 3.4-4.8 [facility] Comment on above: Performed By: #### L 100.0100, L501.9985, L500.4050 ####[facility] [address] [place], [address] Albumin/Globulin [Mass ratio] 1.8 {ratio} Normal 0.9-2.4 [facility] Comment on above: Performed By: #### L 100.0100, L501.9985, L500.4050 ####[facility] [address] [place], [address] ALK PHOS 120 U/L High 35-104 [facility] Comment on above: Performed By: #### L 100.0100, L501.9985, L500.4050 ####[facility] [address] [place], [address] ALT [Catalytic activity/Vol] 42 U/L High <=34 [facility] Comment on above: Performed By: #### L 100.0100, L501.9985, L500.4050 ####[facility] [address] [place], [address] AST [Catalytic activity/Vol] 37 U/L High <=31 [facility] Comment on above: Performed By: #### L 100.0100, L501.9985, L500.4050 ####[facility] [address] [place], [address] Bilirubin [Mass/Vol] 0.61 mg/dL Normal 0.00-1.30 [facility] Comment on above: Performed By: #### L 100.0100, L501.9985, L500.4050 ####[facility] [address] [place], [address] BUN/CRE 34.4 RATIO High 10-20 [facility] Comment on above: Performed By: #### L 100.0100, L501.9985, L500.4050 ####[facility] [address] [place], [address] Calcium [Mass/Vol] 9.9 mg/dL Normal 7.6-11.0 [facility] Comment on above: Performed By: #### L 100.0100, L501.9985, L500.4050 ####[facility] [address] [place], [address] Chloride [Moles/Vol] 103 mmol/L Normal 98-108 [facility] Comment on above: Performed By: #### L 100.0100, L501.9985, L500.4050 ####[facility] [address] [place], [address] CO2 [Moles/Vol] 23.8 mmol/L Normal 21.0-32.0 [facility] Comment on above: Performed By: #### L 100.0100, L501.9985, L500.4050 ####[facility] [address] [place], [address] Creatinine [Mass/Vol] 0.55 mg/dL Low 0.70-1.20 [facility] Comment on above: Performed By: #### L 100.0100, L501.9985, L500.4050 ####[facility] [address] [place], [address] GAP 13 Normal 5-15 [facility] Comment on above: Performed By: #### L 100.0100, L501.9985, L500.4050 ####[facility] [address] [place], [address] GFR/1.73 sq M.predicted among non-blacks MDRD (S/P/Bld) [Vol rate/Area] 102 mL/min/{1.73_m2} Normal >60 [facility] Comment on above: Result Comment: mL/m in/1.73m2 CKD-EPI Creatinine Equation (2020) Performed By: #### L 100.0100, L501.9985, L500.4050 ####[facility] [address] [place], [address] Globulin (S) [Mass/Vol] 2.6 g/dL Normal 2.2-4.2 [facility] Comment on above: Performed By: #### L 100.0100, L501.9985, L500.4050 ####[facility] [address] [place], [address] Glucose [Mass/Vol] 75 mg/dL Normal 70-99 [facility] Comment on above: Performed By: #### L 100.0100, L501.9985, L500.4050 ####[facility] [address] [place], [address] Potassium [Moles/Vol] 4.0 mmol/L Normal 3.3-5.1 [facility] Comment on above: Performed By: #### L 100.0100, L501.9985, L500.4050 ####[facility] [address] [place], [address] Sodium [Moles/Vol] 140 mmol/L Normal 133-145 [facility] Comment on above: Performed By: #### L 100.0100, L501.9985, L500.4050 ####[facility] [address] [place], [address] T PROT 7.2 g/dL Normal 5.9-8.4 [facility] Comment on above: Performed By: #### L 100.0100, L501.9985, L500.4050 ####[facility] [address] [place], [address] Urea nitrogen [Mass/Vol] 19 mg/dL Normal 4-19 [facility] Comment on above: Performed By: #### L 100.0100, L501.9985, L500.4050 ####[facility] [address] [place], [address] Eosinophil percentageOrdered By: [facility] Yenny Kauffman on 01-14-2025 Eosinophils/100 WBC (Bld) 1.5 % 0-5 [facility] Erythrocyte distribution wid th ratioOrdered By: [facility] Yenny Kauffman on 01-14-2025 Erythrocyte distribution width (RBC) [Ratio] 14.4 % 11.6-14.6 [facility] Erythrocyte distribution wid th standard deviationOrdered By: [facility] Yenny Kauffman on 01-14-2025 Erythrocyte distribution width (RBC) [Ratio] 44.2 fl High 35.1-43.9 [facility] Glomerular filtration rate ( GFR) estimation/1.73 sq m using serum, plasma, or whole bOrdered By: [facility] Yenny Kauffman on 01-14-2025 GFR/1.73 sq M.predicted among non-blacks MDRD (S/P/Bld) [Vol rate/Area] 102 mL/min/{1.73_m2} >60 [facility] Comment on above: mL/min/1.73m2 CKD-EP I Creatinine Equation (2020) Hematocrit Auto (Bld) [Volum e fraction]Ordered By: [facility] Yenny Kauffman on 01-14-2025 Hematocrit (Bld) [Volume fraction] 44.6 % 37-47 [facility] Hemoglobin A1con 01-14-2025 HbA1c (Bld) [Mass fraction] 6.4 % High <=5.6 [facility] Comment on above: Result Comment: Norm al < 5.7 % Prediabetic 5.7 - 6.4 % Diabetic >or= 6.5 % Please note range changes. Performed By: #### L 100.0100, L501.9985, L500.4050 ####[facility] [address] [place], [address] Hemoglobin A1c percentageOrd ered By: [facility] Yenny Kauffman on 01-14-2025 HbA1c (Bld) [Mass fraction] 6.4 % High <5.7 [facility] Comment on above: Normal < 5.7 % Predi abetic 5.7 - 6.4 % Diabetic >or= 6.5 % Please note range changes. Hemoglobin measurementOrdere d By: [facility] Yenny Kauffman on 01-14-2025 Hemoglobin (Bld) [Mass/Vol] 14.5 g/dL 12.0-15.0 [facility] Immature granulocytes/100 WB C Auto (Bld)Ordered By: [facility] Yenny Kauffman on 01-14-2025 Immature granulocytes/100 WBC (Bld) 0.300 % 0.0-0.9 [facility] Comment on above: IG% - Immature Granu locytes (promyelocytes, myelocytes and metamyelocytes) > 1% indicates that a LEFT SHIFT is Present. Laboratory - Chemistry and C hemistry - challengeOrdered By: [facility] Yenny Kauffman on 01-14-2025 AST [Catalytic activity/Vol] 37 U/L High <32 [facility] MCV (mean corpuscular volume ) determinationOrdered By: [facility] Yenny Kauffman on 01-14-2025 MCV (RBC) [Entitic vol] 85.1 fL 81-99 [facility] Mean corpuscular hemoglobin (MCH) determinationOrdered By: [facility] Yenny Kauffman on 01-14-2025 MCH (RBC) [Entitic mass] 27.7 pg 27.0-32.0 [facility] Mean corpuscular hemoglobin concentration (MCHC) determinationOrdered By: [facility] Yenny Kauffman on 01-14-2025 MCHC (RBC) [Mass/Vol] 32.5 g/dL 32-36 [facility] Mean platelet volume determi nationOrdered By: [facility] Yenny Kauffman on 01-14-2025 Platelet mean volume (Bld) [Entitic vol] 10.3 fL 6.2-12.0 [facility] Monocyte percentageOrdered B y: [facility] Yenny Kauffman on 01-14-2025 Monocytes/100 WBC (Bld) 6.3 % 0-10 [facility] Neutrophil percentageOrdered By: [facility] Yenny Kauffman on 01-14-2025 Neutrophils/100 WBC (Bld) 49.0 % 47-70 [facility] Nucleated red blood cell per centageOrdered By: [facility] Yenny Kauffman on 01-14-2025 Nucleated RBC/100 WBC (Bld) [Ratio] 0 % 0-5 [facility] Platelet countOrdered By: [facility] Yenny Kauffman on 01-14-2025 Platelets (Bld) [#/Vol] 224 10*3/uL 150-450 [facility] Potassium measurement (mass/ volume)Ordered By: [facility] Yenny Kauffman on 01-14-2025 Potassium (Unsp spec) [Mass/Vol] 4.0 mmol/L 3.3-5.1 [facility] RBC Auto (Bld) [#/Vol]Ordere d By: [facility] Yenny Kauffman on 01-14-2025 RBC (Bld) [#/Vol] 5.24 10*6/uL 4.2-5.4 [facility] Serum creatinine measurement (mass/volume)Ordered By: [facility] Yenny Kauffman on 01-14-2025 Creatinine [Mass/Vol] 0.55 mg/dL Low 0.70-1.20 [facility] Serum globulin measurementOr dered By: RONEY Kauffman on 01-14-2025 Globulin (S) [Mass/Vol] 2.6 g/dL 2.2-4.2 [facility] Serum glucose measurement (m ass/volume)Ordered By: [facility] Yenny Kauffman on 01-14-2025 Glucose [Mass/Vol] 75 mg/dL 70-99 [facility] Serum or plasma alanine coto otransferase (ALT) measurementOrdered By: [facility] Yennyjonathan Kauffman on 01-14-2025 ALT [Catalytic activity/Vol] 42 U/L High <35 [facility] Serum or plasma albumin faizan urement (mass/volume)Ordered By: [facility] Yennyjonathan Kauffman on 01-14-2025 Albumin [Mass/Vol] 4.6 g/dL 3.4-4.8 [facility] Serum or plasma albumin/glob ulin mass ratioOrdered By: [facility] on 01-14-2025 Albumin/Globulin [Mass ratio] 1.8 {ratio} 0.9-2.4 [facility] Serum or plasma alkaline hillary sphatase measurementOrdered By: [facility] Yenny Kauffman on 01-14-2025 ALP [Catalytic activity/Vol] 120 U/L High 35-104 [facility] Serum or plasma calcium faizan urement (mass/volume)Ordered By: [facility] Yennyjonathan Kauffman on 01-14-2025 Calcium [Mass/Vol] 9.9 mg/dL 7.6-11.0 [facility] Serum or plasma urea nitroge n measurement (mass/volume)Ordered By: [facility] Yennyjonathan Kauffman on 01-14-2025 Urea nitrogen [Mass/Vol] 19 mg/dL 4-19 [facility] Sodium levelOrdered By: [facility] Yennyjonathan Kauffman on 01-14-2025 Sodium [Moles/Vol] 140 mmol/L 133-145 [facility] Total proteinOrdered By: [facility] Yennyjonathan Kauffman on 01-14-2025 Protein [Mass/Vol] 7.2 g/dL 5.9-8.4 [facility] White blood cell (WBC) count Ordered By: [facility] Yenny Kauffman on 01-14-2025 WBC (Bld) [#/Vol] 6.0 10*3/uL 4.4-11.0 [facility] HIGH RISK HUMAN PAPILLOMA SOLE (HPV), PCR FOR DETECTION AND GENOTYPINGon 07-01-2024 HPV 16 Ag Ql (Unsp spec) Not detected Normal Not detected [facility] Comment on above: Order Comment: Speci men Type: FLUID SPECIMENOrdering Facility: [facility] Address: [address] [place] [address], [place] [address] Performed By: #### L [id number], HPVHRT ####[facility] [id number] [place] [address] [place] ELISA HPV 18 Ag Ql (Unsp spec) Not detected Normal Not detected [facility] Comment on above: Order Comment: Speci men Type: FLUID SPECIMENOrdering Facility: [facility] Address: [address] [place] [address] Performed By: #### L [id number], HPVHRT ####[facility] [id number] [place] [address] [place] ELISA HPV 31+33+35+39+45+51+52+56 +58+59+66+68 DNA JIMMY+probe Ql (Cvx) Not detected Normal Not detected [facility] Comment on above: Order Comment: Speci men Type: FLUID SPECIMENOrdering Facility: [facility] Address: [address] [place] [address] Result Comment: High Risk HPV Other Type includes HPV types 31, 33, 35, 39, 45, 51, 52, 56, 58, 59, 66 and 68. Performed By: #### L [id number], HPVHRT ####[facility] [id number] [place] [address] [place] ELISA PAP TESTon 07-01-2024 ADEQUACY Normal [facility] Comment on above: Order Comment: Speci men Type: FLUID SPECIMENOrdering Facility: [facility] Address: [address] [place] [address] Result Comment: Sati sfactory for interpretation. Limited cellularity due to acellular background material Performed By: #### L [id number], HPVHRT ####[facility] [id number] [place] [address] [place] ELISA CASE REPORT Normal [facility] Comment on above: Order Comment: Speci men Type: FLUID SPECIMENOrdering Facility: [facility] Address: [address] [place] [address], [place] [address] Result Comment: Gyne cologic Cytology Report Case: [id number] Authorizing Provider: Yenny Kauffman NP Collected: 07/01/2024 11:30 AM Ordering Location: [facility] Received: 07/02/2024 12:50 PM [facility] First Screen: Livia Fortune, CT, ASCP Rescreen: Gabriel High, CT, ASCP Specimen: Pap Test, ThinPrep, Vagina Performed By: #### L [id number], HPVHRT ####[facility] [id number] [place] [address] [place] [facility] CLINICAL HISTORY, CYTOLOGY, DRY ROASTER Post Menopausal Normal [facility] Comment on above: Order Comment: Speci men Type: FLUID SPECIMENOrdering Facility: [facility] Address: [address] [place] [address], [place] [address] Result Comment: Prev ious pap: 02/15/2023 (insufficient) Hysterectomy (subtotal) Performed By: #### L [id number], HPVHRT ####[facility] [id number] [address] STATES OF [facility] FINAL PERFORMING LAB Normal [facility] Comment on above: Order Comment: Speci men Type: FLUID SPECIMENOrdering Facility: [facility] Address: [address] [place] [address], [place] [address] Result Comment: Tech nical component, residential supervisor screening performed at [facility], [facility] [address] CLIA# [id number] Diagnostic interpretation performed at [facility], [address] [id number] CLIA# [id number] Bookkeeper Receptionist: Luke Gilbert M.D. Performed By: #### L [id number], HPVHRT ####[facility] [id number] [address] [place] HPV REFLEX Yes HPV Normal [facility] Comment on above: Order Comment: Speci men Type: FLUID SPECIMENOrdering Facility: [facility] Address: [address] [place] [address] Performed By: #### L [id number], HPVHRT ####[facility] [id number] [address] [place] INTERPRETATION, CYTOLOGY, DRY ROASTER Normal [facility] Comment on above: Order Comment: Speci men Type: FLUID SPECIMENOrdering Facility: [facility] Address: [address] [place] [address] Result Comment: Nega tive for intraepithelial lesion or malignancy. Performed By: #### L [id number], HPVHRT ####[facility] [id number] [address] PAP DISCLAIMER COMMENT The Pap Smear is a screening test for cervical cancer. False negative results occur with all screening tests, emphasizing the need for rescreening at recommended intervals, and clinical correlation. Normal [facility] Comment on above: Order Comment: Speci men Type: FLUID SPECIMENOrdering Facility: [facility] Address: [address] [place] [address] Performed By: #### L [id number], HPVHRT ####[facility] [id number] [address] [place] PAP ARCHERY EQUIPMENT HAY SORTER COMMENT This specimen has be en analyzed by the ThinPrep Imaging System, an automated imaging and review system, which assists the laboratory in evaluating cells on ThinPrep Pap tests. Following automated imaging, selected poole from every slide are reviewed by a residential supervisor. Normal [facility] Comment on above: Order Comment: Speci men Type: FLUID SPECIMENOrdering Facility: [facility] Address: [address] [place] [address] Performed By: #### L [id number], HPVHRT ####[facility] [id number] [place] [address] [place] CBC panel Auto (Bld)on 03-26 Erythrocyte distribution width (RBC) [Ratio] 13.9 % Normal 11.5-15.0 [facility] Comment on above: Order Comment: Speci men Type: BLOOD SPECIMENOrdering Facility: [facility] Address: [address] [place] [address] Performed By: #### 5 8410-2 ####[facility] [id number] [place] [address] [place] Hematocrit (Bld) [Volume fraction] 45.3 % Normal 36.0-46.0 [facility] Comment on above: Order Comment: Speci men Type: BLOOD SPECIMENOrdering Facility: [facility] Address: [address] [place] [address] Performed By: #### 5 8410-2 ####[facility] [id number] [place] [address] [place] Hemoglobin (Bld) [Mass/Vol] 14.5 g/dL Normal 11.5-15.5 [facility] Comment on above: Order Comment: Speci men Type: BLOOD SPECIMENOrdering Facility: [facility] Address: [address] [place] [address] Performed By: #### 5 8410-2 ####[facility] [id number] [address] [id number] [place] MCH (RBC) [Entitic mass] 27.6 pg Normal 26.0-34.0 [facility] Comment on above: Order Comment: Speci men Type: BLOOD SPECIMENOrdering Facility: [facility] Address: [address] [place] [address] Performed By: #### 5 8410-2 ####[facility] [id number] [place] [address] [place] MCHC (RBC) [Mass/Vol] 32.0 g/dL Normal 30.5-36.0 [facility] Comment on above: Order Comment: Speci men Type: BLOOD SPECIMENOrdering Facility: [facility] Address: [address] [place] [address] Performed By: #### 5 8410-2 ####[facility] [id number] [place] [address] [place] MCV (RBC) [Entitic vol] 86.3 fL Normal 80.0-100.0 [facility] Comment on above: Order Comment: Speci men Type: BLOOD SPECIMENOrdering Facility: [facility] Address: [address] [place] [address] Performed By: #### 5 8410-2 ####[facility] [id number] [address] [place] Nucleated RBC (Bld) [#/Vol] 10*3/uL Normal <0.01 [facility] Comment on above: Order Comment: Speci men Type: BLOOD SPECIMENOrdering Facility: [facility] Address: [address] [place] [address] Performed By: #### 5 8410-2 ####[facility] [id number] [place] [address] [place] Platelet mean volume (Bld) [Entitic vol] 11.0 fL Normal 9.0-12.7 [facility] Comment on above: Order Comment: Speci men Type: BLOOD SPECIMENOrdering Facility: [facility] Address: [address] [place] [address] Performed By: #### 5 8410-2 ####[facility] [id number] [place] [address] [place] Platelets (Bld) [#/Vol] 232 10*3/uL Normal 150-400 [facility] Comment on above: Order Comment: Speci men Type: BLOOD SPECIMENOrdering Facility: [facility] Address: [address] [place] [address] Performed By: #### 5 8410-2 ####[facility] [id number] [address] [address] [place] RBC (Bld) [#/Vol] 5.25 10*6/uL High 3.90-5.20 [facility] Comment on above: Order Comment: Speci men Type: BLOOD SPECIMENOrdering Facility: [facility] Address: [address] [place] [address] Performed By: #### 5 8410-2 ####[facility] [id number] [place] [address] [place] WBC (Bld) [#/Vol] 5.74 10*3/uL Normal 3.70-11.00 [facility] Comment on above: Order Comment: Speci men Type: BLOOD SPECIMENOrdering Facility: [facility] Address: [address] [place] [address] Performed By: #### 5 8410-2 ####[facility] [id number] [address] [id number] [place] Comprehensive metabolic 2000 panelon 03-26-2024 Albumin [Mass/Vol] 4.5 g/dL Normal 3.9-4.9 [facility] Comment on above: Order Comment: Speci men Type: BLOOD SPECIMENOrdering Facility: [facility] Address: [address] [place] [address] Performed By: #### 2 4323-8, 21559-7 ####[facility] [id number] [address] [id number] [place] ALP [Catalytic activity/Vol] 115 U/L Normal 34-123 [facility] Comment on above: Order Comment: Speci men Type: BLOOD SPECIMENOrdering Facility: [facility] Address: [address], [place] [address] Performed By: #### 2 4323-8, 32044-2 ####[facility] [id number] [address] [id number] [place] ALT [Catalytic activity/Vol] 29 U/L Normal 7-38 [facility] Comment on above: Order Comment: Speci men Type: BLOOD SPECIMENOrdering Facility: [facility] Address: [address] [facility], [place] [address] Performed By: #### 2 4323-8, 29641-9 ####[facility] [id number] [place] [address] [place] Anion gap [Moles/Vol] 12 mmol/L Normal 8-15 [facility] Comment on above: Order Comment: Speci men Type: BLOOD SPECIMENOrdering Facility: [facility] Address: [address] [facility], [place] [address] Performed By: #### 2 4323-8, 24546-6 ####[facility] [id number] [place] [address] [place] AST [Catalytic activity/Vol] 29 U/L Normal 13-35 [facility] Comment on above: Order Comment: Speci men Type: BLOOD SPECIMENOrdering Facility: [facility] Address: [address] [facility], [place] [address] Performed By: #### 2 4323-8, 42963-2 ####[facility] [id number] [address] [id number] [place] Bilirubin [Mass/Vol] 0.5 mg/dL Normal 0.2-1.3 [facility] Comment on above: Order Comment: Speci men Type: BLOOD SPECIMENOrdering Facility: [facility] Address: [address] [facility], [place] [address] Performed By: #### 2 4323-8, 98926-6 ####[facility] [id number] [address] [address] [place] Calcium [Mass/Vol] 9.6 mg/dL Normal 8.5-10.2 [facility] Comment on above: Order Comment: Speci men Type: BLOOD SPECIMENOrdering Facility: [facility] Address: [address] [place] [address] RD, [place] [address] Performed By: #### 2 432-8, 11884-3 ####[facility] [id number] [place] [address] [place] Chloride [Moles/Vol] 105 mmol/L Normal 98-107 [facility] Comment on above: Order Comment: Speci men Type: BLOOD SPECIMENOrdering Facility: [facility] Address: [address] [place] [address], [place] [address] Performed By: #### 2 4328, 55054-4 ####[facility] [id number] [place] [address] [place] CO2 [Moles/Vol] 23 mmol/L Normal 22-30 [facility] Comment on above: Order Comment: Speci men Type: BLOOD SPECIMENOrdering Facility: [facility] Address: [address] [place] [address], [place] [address] Performed By: #### 2 4328, 35199-4 ####[facility] [id number] [address] [address] [place] Creatinine [Mass/Vol] 0.48 mg/dL Low 0.58-0.96 [facility] Comment on above: Order Comment: Speci men Type: BLOOD SPECIMENOrdering Facility: [facility] Address: [address] [place] [address], [place] [address] Performed By: #### 2 4323-8, 64386-5 ####[facility] [id number] [place] [address] [place] Creatinine and Glomerular filtration rate.predicted panel (S/P/Bld) 106 mL/min/1.73m??? Normal >=60 [facility] Comment on above: Order Comment: Barbara nelson Type: BLOOD SPECIMENOrdering Facility: [facility] Address: [address] [place] [address], [place] [address] Result Comment: Daisy mated Glomerular Filtration Rate [...] actual GFR. Performed By: #### 2 4323-8, 91896-6 ####[facility] [id number] [place] [address] [place] Glucose [Mass/Vol] 100 mg/dL High 74-99 [facility] Comment on above: Order Comment: Barbara nelson Type: BLOOD SPECIMENOrdering Facility: [facility] Address: [address] [place] [address], [place] [address] Result Comment: The [place] Diabetes Association (ADA) provides guidance for cutoff [...] Standards of Medical Care in Diabetes 2016, [place] Diabetes Association. Diabetes Care. 2016.39(Suppl 1). Performed By: #### 2 4323-8, 82238-4 ####[facility] [id number] [id number] [address] [place] Potassium [Moles/Vol] 4.5 mmol/L Normal 3.7-5.1 [facility] Comment on above: Order Comment: Speci men Type: BLOOD SPECIMENOrdering Facility: [facility] Address: [address] [place] [address], [place] [address] Performed By: #### 2 4323-8, 06141-1 ####[facility] [id number] [place] [address] [place] Protein [Mass/Vol] 5.9 g/dL Low 6.3-8.0 [facility] Comment on above: Order Comment: Speci men Type: BLOOD SPECIMENOrdering Facility: [facility] Address: [address] [place] [address], [place] [address] Performed By: #### 2 4323-8, 27091-4 ####[facility] [id number] [place] [address] [place] Sodium [Moles/Vol] 140 mmol/L Normal 136-144 [facility] Comment on above: Order Comment: Speci men Type: BLOOD SPECIMENOrdering Facility: [facility] Address: [address] [place] [address], [place] [address] Performed By: #### 2 4323-8, 31055-5 ####[facility] [id number] [place] [address] [place] Urea nitrogen [Mass/Vol] 20 mg/dL Normal 7-21 [facility] Comment on above: Order Comment: Speci men Type: BLOOD SPECIMENOrdering Facility: [facility] Address: [address] [place] [address], [place] [address] Performed By: #### 2 4323-8, 32395-7 ####[facility] [id number] [address] [place] [id number] [place] HbA1c (Bld)on 03-26-2024 Average glucose Estimated from glycated hemoglobin (Bld) [Mass/Vol] 123 mg/dL Normal [facility] Comment on above: Order Comment: Speci men Type: BLOOD SPECIMENOrdering Facility: [facility] Address: [address] [place] [address], [place] [address] Result Comment: eAG: (Estimated average glucose) is a calculated value from HgbA1c and is home office representative of the average blood glucose level in the last 2-3 month period. Performed By: #### 5 5454-3 ####[facility] [id number] [place] [address] [place] HbA1c (Bld) [Mass fraction] 5.9 % High 4.3-5.6 [facility] Comment on above: Order Comment: Speci men Type: BLOOD SPECIMENOrdering Facility: [facility] Address: [address] [place] [address] Result Comment: [place] Diabetes Association guidelines indicate that patients with HgbA1c in the range 5.7-6.4% are at increased risk for development of diabetes, and intervention by lifestyle modification may be beneficial. HgbA1c greater or equal to 6.5% is considered diagnostic of diabetes. Performed By: #### 5 5454-3 ####[facility] [id number] [place] [address] [place] Lipid 1996 panelon 4 Cholesterol [Mass/Vol] 162 mg/dL Normal <200 [facility] Comment on above: Order Comment: Speci men Type: BLOOD SPECIMENOrdering Facility: [facility] Address: [address] [place] [address], [place] [address] Result Comment: <200 mg/dL, Desirable 200-239 mg/dL, Borderline high >239 mg/dL, High Performed By: #### 2 4323-8, 89682-0 ####[facility] [id number] [address] [place] Cholesterol in HDL [Mass/Vol] 48 mg/dL Normal >39 [facility] Comment on above: Order Comment: Speci men Type: BLOOD SPECIMENOrdering Facility: [facility] Address: [address] [place] [address], [place] [address] Result Comment: 40-5 9 mg/dL, Acceptable >59 mg/dL, High: Negative risk factor for coronary heart disease <40 mg/dL, Low: Positive risk factor for coronary heart disease Performed By: #### 2 4323-8, 53628-5 ####[facility] [id number] [place] [address] [place] Cholesterol in LDL [Mass/Vol] 87 mg/dL Normal <100 [facility] Comment on above: Order Comment: Speci men Type: BLOOD SPECIMENOrdering Facility: [facility] Address: [address] [place] [address], [place] [address] Result Comment: <100 mg/dL, Optimal 100-129 mg/dL, Near optimal/above optimal 130-159 mg/dL, Borderline high 160-189 mg/dL, High >189 mg/dL, Very high Secondary prevention optimal LDL Cholesterol levels are recommended to be < 70 mg/dL Performed By: #### 2 4323-8, 15633-4 ####[facility] [id number] [address] [place] Cholesterol in LDL/Cholesterol in HDL [Mass ratio] 1.81 {ratio} Normal <2.54 [facility] Comment on above: Order Comment: Speci men Type: BLOOD SPECIMENOrdering Facility: [facility] Address: [address] [place] [address], [place] [address] Result Comment: Stacy cedenoce: 1. National Cholesterol Education Program ATP III Guideline At-A-Glance Quick Desk Reference: National Heart, Lung, and Blood [place]. National Institutes of Health. 2001: NIH Publication No. 01-3305. 2. An International Atherosclerosis Society position paper: global recommendations for the management of dyslipidemia: executive summary, Atherosclerosis. 2014: 232(2):410-413. Performed By: #### 2 4323-8, 01294-6 ####[facility] [id number] [address] [place] Cholesterol in VLDL [Mass/Vol] 27 mg/dL Normal <30 [facility] Comment on above: Order Comment: Speci men Type: BLOOD SPECIMENOrdering Facility: [facility] Address: [address] [place] [address], [place] [address] Performed By: #### 2 4323-8, 28912-2 ####[facility] [id number] [place] [address] [place] Cholesterol non HDL [Mass/Vol] 114 mg/dL Normal <130 [facility] Comment on above: Order Comment: Speci men Type: BLOOD SPECIMENOrdering Facility: [facility] Address: [address] [place] [address], [place] [address] Result Comment: <130 mg/dL, Optimal 130-159 mg/dL, Near optimal/above optimal 160-189 mg/dL, Borderline high 190-219 mg/dL, High >219 mg/dL, Very high Secondary prevention optimal non HDL Cholesterol levels are recommended to be <100 mg/dL Performed By: #### 2 8, 95745-1 ####[facility] [id number] [address] [place] Cholesterol.total/Aubrie sterol in HDL [Mass ratio] 3.38 {ratio} Normal <5.10 [facility] Comment on above: Order Comment: Speci men Type: BLOOD SPECIMENOrdering Facility: [facility] Address: [address] [place] [address], [place] [address] Performed By: #### 2 4328, ####[facility] [id number] [place] [address] [place] FASTING TIME UNKNOWN Normal [facility] Comment on above: Order Comment: Speci men Type: BLOOD SPECIMENOrdering Facility: [facility] Address: [address] [place] [address], [place] [address] Performed By: #### 2 432-8, 26737-1 ####[facility] [id number] [place] [id number] [place] Triglyceride [Mass/Vol] 135 mg/dL Normal <150 [facility] Comment on above: Order Comment: Speci men Type: BLOOD SPECIMENOrdering Facility: [facility] Address: [address] [place] [address], [place] [address] Result Comment: <150 mg/dL, Normal 150-199 mg/dL, Borderline high 200-499 mg/dL, High >499 mg/dL, Very high Performed By: #### 2 4323-8, 30265-1 ####[facility] [id number] [place] [address] [place] MAMMOGRAM SCREENING BILAT ERAL W/TOMOon 03-12-2024 [place] MAMMOGRAM SCREENING BILATERAL W/MARY BETH ORIGINAL FROM: [place] [address] PROCEDURE FOR: BRANDI SAUCEDA [address] [place] [address] [address] [place] [address] Home: PID#: [id number] Exam#: [id number] : 1960 Age: 63 TO: YENNY KAUFFMAN [place] [address] Fax: NO FAX EXAMINATION: SCREENING DIGITAL BILATERAL [...] Continued screening with annual mammograms is recommended. Tyrer Cuzick risk calculations, generated with the history provided, [...] addition to annual mammographic screening per the [place] [employer]. BIRADS: MAMMOGRAM BI-RADS: 2: Benign finding RECALL: 1 year screening RECALL TYPE: mammo LETTER SENT: Normal BI-RADS 1 and 2 Interpreted by: Kitty Cruz Preliminary Report By: Kitty Cruz Electronically signed By Kitty Cruz Dictated Date: 03/12/2024 3:25:08 PM Prelim Date: 03/12/2024 3:40:01 PM Sign Date: 03/12/2024 3:40:01 PM Ordering Provider: YENNY KAUFFMAN Chimney Mechanic: WILFREDO MARCELO(R) RDMS letter sent: Normal BI-RADS 1 and 2 Mammogram BI-RADS: 2 Benign Normal [facility] ([place] CNOVon 12-22-2023 CNOV Office Visit (PODIWS ) BRANDI SAUCEDA ([id number]) 1960 F Date Time Provider Department 12/22/23 10:45 AM CORBY POWER During your visit today, we recorded the following information about you: Juany Day, RN 12/22/2023 11:06 AM Signed AMB ROOMING [...] (H) 4.3 - 5.6 % Final Comment: [place] Diabetes Association guidelines indicate that patients with [...] topical antibiot (more content not included)... Normal [facility] Mahesh 12-11-2023 WILL Telephone (PODIWS) GRISEL SAUCEDAORASatno Valladares ([id number]) 1960 F Date Time Provider Department 12/11/23 CORBY POWER During your visit today, we recorded the following information about you: Jeovanny Powell MA 12/11/2023 12:15 PM Signed Pt calling to see when she can return to work. She is scheduled Monday. She works at [employer] and is on her feet the whole time. She was unsure of her restrictions. If she is able to return, she will need a note. Please review and advise. WILLIAM Antoine Amelia, LPN 12/11/2023 1:41 PM Signed Corby Power [facility] Podiatry Pool 38 minutes ago (1:01 [...] Date Reviewed: 12/08/2023 Reviewed by: Renetta Miranda, DONATO - Fully Assessed Reason for Visit: Patient Question [2507] Prescriptions as of 12/11/2023 - Lactobacillus acidophilus [...] Encounter Status:Closed by JEOVANNY POWELL on 12/11/23 [facility] ANES POSTPROC EVALon 024 ANES POSTPROC EVAL HNO ID: [id number] Author: DARRICK MENDEZ MD Service: ? Author Type: Anesthesiologist Type: Anesthesia Postprocedure Evaluation Filed: 12/08/2023 12:01 Note Text: POST ANESTHESIA EVALUATION NOTE : 1960 Procedure Summary Date: 12/08/23 Room / Location: [place] OR02 / [place] OR Anesthesia Start: 832 Anesthesia Stop: 999 [...] December 08, 2023 TIME: 12:00 PM CSN: [id number] [facility] ANES PRE-OPon 12-08-2023 ANES PRE-OP HNO ID: [id number] Author: DARRICK MENDEZ MD Service: ? Author Type: Anesthesiologist Type: Anesthesia Preprocedure Evaluation Filed: 12/08/2023 08:04 Note Text: ANESTHESIOLOGY DAY OF SURGERY NOTE : 1960 Procedure Information Date/Time: 12/08/23826 Procedure: EXCISION OF NAIL AND MATRIX FOR PERMANENT REMOVAL (Bilateral) Location: [place] OR / [place] OR Surgeons: Corby Power Estimated body mass [...] and consent discussed: yes. Patient / Responsible Libertarian agrees to proceed: yes Patient / Surrogate [...] none. Vitals Value Taken Time BP 125/72 12/08/23730 Pulse 70 12/08/23730 Resp 20 12/08/23730 Temp 36.2 ?C (97.2 ?F) 12/08/23730 SpO2 97 % 12/08/23 0731 Facility-Administered Medications [...] December 08, 2023 TIME: 8:02 AM CSN: [id number] [facility] BRIEF OP NOTon 12-08-2023 BRIEF OP NOT HNO ID: [id number] Author: CORBY POWER, ? Service: ? Author Type: Physician Type: Brief Op Note Filed: 12/08/2023 09:57 Note Text: BRIEF OPERATIVE / PROCEDURE NOTE LOG ID: [id number] SURGERY/PROCEDURE DATE: 12/08/2023 INCISION/PROCEDURE START TIME: 8:45 AM INCISION CLOSE/PROCEDURE END TIME: 9:49 AM SURGEON(S)/PROCEDURALI ST(S) AND TECHNOLOGY INSTRUCTOR(S): Surgeon(s) and Role: * Corby Power - [...] DATE: December 08, 2023 TIME: 9:56 AM [facility] HISTORY PHYSICALon HISTORY PHYSICAL HNO ID: [id number] Author: CORBY POWER, ? Service: ? Author [...] DATE: December 08, 2023 TIME: 8:16 AM [facility] OPERATIVE NOon 12-08-2023 OPERATIVE NO HNO ID: [id number] Author: CORBY POWER, ? Service: ? Author Type: Physician Type: Operative Report Filed: 12/09/2023 06:21 Note Text: OPERATIVE/PROCEDURE REPORT LOG ID: [id number] SURGERY/PROCEDURE DATE: 12/08/2023 INCISION/PROCEDURE START TIME: 8:45 AM INCISION CLOSE/PROCEDURE END TIME: 9:49 AM SURGEON(S)/PROCEDURALI ST(S) AND TECHNOLOGY INSTRUCTOR(S): Surgeon(s) and Role: * Corby Power - [...] Same as (more content not included)... Normal [facility] HISTORY PHYSICALon HISTORY PHYSICAL HNO ID: [id number] Author: RAMON MURGUIA APRN.LIZBETH Service: ? Author Type: Nurse Practitioner Type: [...] hyperlipidemia, hyperten (more content not included)... Normal [facility] CNCOon 11-24-2023 CNCO Letter Text Normal [facility] CNOVon 11-13-2023 CNOV Office Visit (PODIWS ) BRANDI SAUCEDA ([id number]) 1960 F Date Time Provider Department 11/13/23 [...] (H) 4.3 - 5.6 % Final Comment: [place] Diabetes [employer] guidelines indicate that patients with [...] unchanged from previous visit. Non-Invasive Vascular Laboratory [facility] Lower Extremity Arterial Physiology Study [...] Waveforms Dors (more content not included)... Normal [facility] CNPNon 11-13-2023 CNPN Telephone (PODIWS) BRANDI SAUCEDA ([id number]) 1960 F Date Time Provider Department 11/13/23 CORBY POWERS During your visit today, we recorded the following information about you: Corby Power 11/13/2023 9:27 AM Signed Patient name: Brandi Sauceda* Type of surgery:chemical matrixectomy, toes 1-5 b/l CPT code:99225 Diagnosis: onychomycosis* Length of surgery:120 min [employer]ine R[employer] Clerk needed: none* Anesthesia: mac Special equipment: 30 [...] matrixectomy, toes 1-5 b/l on 12/08/2023 at [facility]. Patient was provided with surgical packet including electronic and paper copy of surgical confirmation letter, and instruction on where to go at [facility]. All post op were scheduled with in office as well. Patient verbalized understanding of all instructions. Surgery scheduled in [facility]. Indigo Smith LPN Allergies As of [...] Status:Closed by INDIGO SMITH on 12/08/23 Normal [facility] PVR ANK PRESS MINESH VAS LABon 09-08-2023 PVR ANK PRESS MINESH VAS LAB Non-Invasive Vascular Laboratory [facility] Lower Extremity Arterial Physiology Study [...] Normal at rest. Technologist: Fariha Cunningham RVT [facility] Ordering physician: CORBY POWER Interpreting physician: MILLY Mckinney DO Final CC [employer] Medical Image : [id number] See Link below for Image Normal [facility] CNOVon 08-15-2023 CNOV Office Visit (PODIWS ) BRANDI SAUCEDA ([id number]) 1960 F Date Time Provider Department 08/15/23 [...] distress or (more content not included)... Normal [facility] Absolute lymphocyte countOrd ered By: Dr. Sanchez on 01-21-2023 Lymphocytes Auto (Unsp spec) [#/Vol] 2.18 10*3/uL 0.83-4.51 [facility] Basophil percentageOrdered B y: Dr. Sanchez on 01-21-2023 Basophils/100 WBC (Bld) 0.8 % 0-1 [facility] Chloride [Moles/Vol] 110 mmol/L 98-107 [facility] Cholesterol [Mass/Vol] 155 mg/dL <200 [facility] Comment on above: <200 mg/dL Desirable 200-240 mg/dL Borderline >240 mg/dL High Risk Eosinophils/100 WBC (Bld) 4.5 % 0-5 [facility] Glucose [Mass/Vol] 122 mg/dL 74-106 [facility] Comment on above: Fasting Glucose resu lt from 100 to 125 mg/dL suggests IMPAIRED HOMEOSTASIS per A.D.A. criteria. Neutrophils (Bld) [#/Vol] 2.1 10*3/uL 2.0-7.7 [facility] Neutrophils/100 WBC (Bld) 43.3 % 47-70 [facility] Potassium [Moles/Vol] 3.8 mmol/L 3.5-5.1 [facility] Sodium [Moles/Vol] 139 mmol/L 136-145 [facility] Triglyceride [Mass/Vol] 213 mg/dL <199 [facility] Comment on above: The drugs N-Acetylcy steine and Metamizole may falsely depress this assay.Serum Triglycerides Reference Interval Normal <150 mg/dL Borderline high 150 - 199 mg/dL High 200 - 499 mg/dL Very High > or = 500 mg/dL WBC (Bld) [#/Vol] 4.8 10*3/uL 4.4-11.0 [facility] Blood erythrocytes count (nu mber/volume)Ordered By: Dr. Sanchez on 01-21-2023 RBC (Bld) [#/Vol] 4.69 10*6/uL 4.2-5.4 [facility] Blood hemoglobin measurement (mass/volume)Ordered By: Dr. Sanchez on 01-21-2023 Hemoglobin (Bld) [Mass/Vol] 12.8 g/dL 12.0-15.0 [facility] Blood lymphocytes/100 leukoc ytesOrdered By: Dr. Sanchez on 01-21-2023 Lymphocytes/100 WBC (Bld) 45.0 % 19-41 [facility] Blood monocytes/100 leukocyt esOrdered By: Dr. Sanchez on 01-21-2023 Monocytes/100 WBC (Bld) 6.2 % 0-10 [facility] Blood platelet mean volumeOr dered By: Dr. Sanchez on 01-21-2023 Platelet mean volume (Bld) [Entitic vol] 10.6 fL 6.2-12.0 [facility] Determination of erythrocyte mean corpuscular volume (MCV)Ordered By: Dr. Sanchez on 01-21-2023 MCV (RBC) [Entitic vol] 85.7 fL 81-99 [facility] Hematocrit Auto (Bld) [Volum e fraction]Ordered By: Dr. Sanchez on 01-21-2023 Hematocrit (Bld) [Volume fraction] 40.2 % 37-47 [facility] Laboratory - Chemistry and C hemistry - challengeOrdered By: Dr. Sanchez on 01-21-2023 CO2 [Moles/Vol] 25.0 mmol/L 21.0-32.0 [facility] Free T4 [Mass/Vol] 0.89 ng/dL 0.76-1.46 [facility] Urea nitrogen/Creatinine [Mass ratio] 35.9 mg/mg 10-20 [facility] Laboratory - Hematology and Cell countsOrdered By: Dr. Sanchez on 01-21-2023 Erythrocyte distribution width (RBC) [Entitic vol] 43.7 fL 35.1-43.9 [facility] Erythrocyte distribution width (RBC) [Ratio] 14.1 % 11.6-14.6 [facility] Immature granulocytes/100 WBC (Bld) 0.200 % 0.0-0.9 [facility] Comment on above: IG% - Immature Granu locytes (promyelocytes, myelocytes and metamyelocytes) > 1% indicates that a LEFT SHIFT is Present. MCH (RBC) [Entitic mass] 27.3 pg 27.0-32.0 [facility] Nucleated RBC/100 WBC (Bld) [Ratio] 0 % 0-5 [facility] MCHC Auto (RBC) [Mass/Vol]Or dered By: Dr. Sanchez on 01-21-2023 MCHC (RBC) [Mass/Vol] 31.8 g/dL 32-36 [facility] No Panel InformationOrdered By: Dr. Sanchez on 01-21-2023 Estimated Creatinine Clearance Calc 150.93 ml/min [facility] Estimated GFR (MDRD) Amer 150 mL/min >60 [facility] Comment on above: GFR Calc Estimated GFR (MDRD) Non-Af Amer 124 mL/min >60 [facility] Comment on above: Non- GFR Calc Thyroid Stimulating Hormone (TSH) 6.81 uIU/mL 0.358-3.74 [facility] Platelets bldOrdered By: Dr. Sanchez on 01-21-2023 Platelets (Bld) [#/Vol] 185 10*3/uL 150-450 [facility] Serum or plasma calcium faizan urement (mass/volume)Ordered By: Dr. Sanchez on 01-21-2023 Calcium [Mass/Vol] 8.9 mg/dL 8.5-10.1 [facility] Serum or plasma cholesterol in HDL measurement (mass/volume)Ordered By: Dr. Sanchez on 01-21-2023 Cholesterol in HDL [Mass/Vol] 46 mg/dL >40 [facility] Comment on above: The drugs N-Acetylcy steine and Metamizole may falsely depress this assay. Reference Range HDL <40 mg/dL Low HDL Cholesterol HDL >or= 60 mg/dL High HDL Cholesterol Serum or plasma cholesterol in VLDL measurement (mass/volume)Ordered By: Dr. Sanchez on 01-21-2023 Cholesterol in VLDL [Mass/Vol] 43 mg/dL 5-40 [facility] Serum or plasma creatinine m easurement (mass/volume)Ordered By: Dr. Sanchez on 01-21-2023 Creatinine [Mass/Vol] 0.53 mg/dL 0.55-1.02 [facility] Comment on above: The validity of the calculated GFR & GFRAA in patients over 70 years has not been determined. Clinical correlation is essential. Serum or plasma low density lipoprotein (LDL) cholesterol measurement (mass/volume)Ordered By: Dr. Sanchez on 01-21-2023 Cholesterol in LDL [Mass/Vol] 66 mg/dL 0-130 [facility] Serum or plasma urea nitroge n measurement (mass/volume)Ordered By: Dr. Sanchez on 01-21-2023 Urea nitrogen [Mass/Vol] 19 mg/dL 7-18 [facility] Thin prep Papanicolaou smear with manual screeningOrdered By: Dr. Sanchez on 01-21-2023 Thin prep Papanicolaou smear with manual screening 4 5-15 [facility] Whole blood hemoglobin A1c/t otal hemoglobin ratio (mass fraction)Ordered By: Dr. Sanchez on 01-21-2023 HbA1c (Bld) [Mass fraction] 5.8 % 3.8-5.6 [facility] Comment on above: Normal < 5.7 % Predi abetic 5.7 - 6.4 % Diabetic >or= 6.5 % Please note range changes. Absolute lymphocyte countOrd ered By: Dr. Cox on 01-20-2023 Lymphocytes Auto (Unsp spec) [#/Vol] 2.13 10*3/uL 0.83-4.51 [facility] Basophil percentageOrdered B y: Dr. Sanchez on 01-20-2023 Basophil percentage 3.2 mg/dL 2.5-4.9 [facility] Basophil percentageOrdered B y: Dr. Cox on 01-20-2023 Basophil percentage 0-5 SEEN /hpf 0-5 [facility] Basophils/100 WBC (Bld) 0.7 % 0-1 [facility] Bilirubin [Mass/Vol] 0.50 mg/dL 0.20-1.00 [facility] Comment on above: For patients on eltr ombopag therapy, use of Dimension Dixon TBIL is not recommended. Chloride [Moles/Vol] 109 mmol/L 98-107 [facility] Eosinophils/100 WBC (Bld) 2.3 % 0-5 [facility] Glucose [Mass/Vol] 132 mg/dL 74-106 [facility] Comment on above: Fasting Glucose resu lt greater than or equal to 126 mg/dL suggests DIABETES MELLITUS per A.D.A. criteria. Neutrophils (Bld) [#/Vol] 4.1 10*3/uL 2.0-7.7 [facility] Neutrophils/100 WBC (Bld) 60.1 % 47-70 [facility] Potassium [Moles/Vol] 4.0 mmol/L 3.5-5.1 [facility] Protein [Mass/Vol] 6.6 g/dL 6.4-8.2 [facility] Sodium [Moles/Vol] 139 mmol/L 136-145 [facility] WBC (Bld) [#/Vol] 6.9 10*3/uL 4.4-11.0 [facility] Bilirubin Test strip Ql (U)O rdered By: Dr. Cox on 01-20-2023 Bilirubin Ql (U) Negative Negative [facility] Blood erythrocytes count (nu mber/volume)Ordered By: Dr. Cox on 01-20-2023 RBC (Bld) [#/Vol] 5.32 10*6/uL 4.2-5.4 [facility] Blood hemoglobin measurement (mass/volume)Ordered By: Dr. Cox on 01-20-2023 Hemoglobin (Bld) [Mass/Vol] 14.7 g/dL 12.0-15.0 [facility] Blood lymphocytes/100 leukoc ytesOrdered By: Dr. Cox on 01-20-2023 Lymphocytes/100 WBC (Bld) 31.1 % 19-41 [facility] Blood monocytes/100 leukocyt esOrdered By: Dr. Cox on 01-20-2023 Monocytes/100 WBC (Bld) 5.7 % 0-10 [facility] Blood platelet mean volumeOr dered By: Dr. Cox on 01-20-2023 Platelet mean volume (Bld) [Entitic vol] 10.4 fL 6.2-12.0 [facility] Determination of erythrocyte mean corpuscular volume (MCV)Ordered By: Dr. Cox on 01-20-2023 MCV (RBC) [Entitic vol] 85.2 fL 81-99 [facility] Hematocrit Auto (Bld) [Volum e fraction]Ordered By: Dr. Cox on 01-20-2023 Hematocrit (Bld) [Volume fraction] 45.3 % 37-47 [facility] Ketones Test strip Ql (U)Ord ered By: Dr. Cox on 01-20-2023 Ketones Ql (U) Negative Negative [facility] Laboratory - Chemistry and C hemistry - challengeOrdered By: Dr. Sanchez on 01-20-2023 Magnesium [Mass/Vol] 2.1 mg/dL 1.6-2.6 [facility] Laboratory - Chemistry and C hemistry - challengeOrdered By: Dr. Cox on 01-20-2023 ALP [Catalytic activity/Vol] 106 U/L 45-117 [facility] ALT [Catalytic activity/Vol] 37 U/L 13-56 [facility] CO2 [Moles/Vol] 27.0 mmol/L 21.0-32.0 [facility] Globulin (S) [Mass/Vol] 2.8 g/dL 2.2-4.2 [facility] Urea nitrogen/Creatinine [Mass ratio] 34.9 mg/mg 10-20 [facility] Laboratory - Hematology and Cell countsOrdered By: Dr. Cox on 01-20-2023 Erythrocyte distribution width (RBC) [Entitic vol] 43.4 fL 35.1-43.9 [facility] Erythrocyte distribution width (RBC) [Ratio] 14.0 % 11.6-14.6 [facility] Immature granulocytes/100 WBC (Bld) 0.100 % 0.0-0.9 [facility] Comment on above: IG% - Immature Granu locytes (promyelocytes, myelocytes and metamyelocytes) > 1% indicates that a LEFT SHIFT is Present. MCH (RBC) [Entitic mass] 27.6 pg 27.0-32.0 [facility] Nucleated RBC/100 WBC (Bld) [Ratio] 0 % 0-5 [facility] MCHC Auto (RBC) [Mass/Vol]Or dered By: Dr. Cox on 01-20-2023 MCHC (RBC) [Mass/Vol] 32.5 g/dL 32-36 [facility] Mucus LM Ql (Urine sed)Order ed By: Dr. Cox on 01-20-2023 Mucus Ql (Urine sed) 0 SEEN /hpf [facility] Nitrite Test strip Ql (U)Ord ered By: Dr. Cox on 01-20-2023 Nitrite Ql (U) Negative Negative [facility] No Panel InformationOrdered By: Dr. Sanchez on 01-20-2023 Troponin I High Sensitivity 124 pg/mL 3.0-54.0 [facility] Comment on above: Critical Result(s) C alled at: 21:30:48 01/20/2023 by: Radha Gallagher. Results read back by same. Please Note: New Test Units and Gender Specific Reference Ranges. For more information see Policy Stat Procedure Dixon High Sensitivity Troponin (TNIH) and attachments. No Panel InformationOrdered By: Dr. Cox on 01-20-2023 Troponin I High Sensitivity 118 pg/mL 3.0-54.0 [facility] Comment on above: Please Note: New Lorna t Units and Gender Specific Reference Ranges. For more information see Policy Stat Procedure Dixon High Sensitivity Troponin (TNIH) and attachments. Estimated Creatinine Clearance Calc 138.89 ml/min [facility] Estimated GFR (MDRD) Amer 137 mL/min >60 [facility] Comment on above: GFR Calc Estimated GFR (MDRD) Non-Af Amer 113 mL/min >60 [facility] Comment on above: Non- GFR Calc Platelets bldOrdered By: Dr. Cox on 01-20-2023 Platelets (Bld) [#/Vol] 208 10*3/uL 150-450 [facility] Protein Test strip Ql (U)Ord ered By: Dr. Cox on 01-20-2023 Protein Ql (U) Negative Negative [facility] Serum or plasma albumin faizan urement (mass/volume)Ordered By: Dr. Cox on 01-20-2023 Albumin [Mass/Vol] 3.8 g/dL 3.2-5.0 [facility] Serum or plasma albumin/glob ulin mass ratioOrdered By: Dr. Cox on 01-20-2023 Albumin/Globulin [Mass ratio] 1.4 {ratio} 0.9-2.4 [facility] Serum or plasma calcium faizan urement (mass/volume)Ordered By: Dr. Cox on 01-20-2023 Calcium [Mass/Vol] 8.9 mg/dL 8.5-10.1 [facility] Serum or plasma creatinine m easurement (mass/volume)Ordered By: Dr. Cox on 01-20-2023 Creatinine [Mass/Vol] 0.57 mg/dL 0.55-1.02 [facility] Comment on above: The validity of the calculated GFR & GFRAA in patients over 70 years has not been determined. Clinical correlation is essential. Serum or plasma urea nitroge n measurement (mass/volume)Ordered By: Dr. Cox on 01-20-2023 Urea nitrogen [Mass/Vol] 20 mg/dL 7-18 [facility] Squamous epithelial cells de tection in urine sediment by light microscopyOrdered By: Dr. Cox on 01-20-2023 Epithelial cells.squamous LM Ql (Urine sed) 0 SEEN /hpf 5-10 [facility] Thin prep Papanicolaou smear with manual screeningOrdered By: Dr. Cox on 01-20-2023 Thin prep Papanicolaou smear with manual screening 22 U/L 15-37 [facility] Thin prep Papanicolaou smear with manual screening 3 5-15 [facility] Urine blood detectionOrdered By: Dr. Cox on 01-20-2023 RBC Ql (U) Negative Negative [facility] RBC Ql (U) 0 SEEN /hpf 0-5 [facility] Urine clarityOrdered By: Dr. Cox on 01-20-2023 Clarity (U) Clear Clear [facility] Urine color determinationOrd ered By: Dr. Cox on 01-20-2023 Color (U) Yellow Yellow [facility] Urine glucose detectionOrder ed By: Dr. Cox on 01-20-2023 Glucose Ql (U) Normal mg/dl Normal [facility] Urine leukocyte esterase det ection by dipstickOrdered By: Dr. Cox on 01-20-2023 Leukocyte esterase Test strip Ql (U) 100 /ul Negative [facility] Urine pHOrdered By: Dr. Marco rojas on 01-20-2023 pH (U) 7.0 [pH] 5.0 - 8.0 [facility] Urine sediment bacteria coun t by microscopy (number/high power field)Ordered By: Dr. Cox on 01-20-2023 Bacteria LM.HPF (Urine sed) [#/Area] 0 /[HPF] None Seen [facility] Urine specific gravity measu rementOrdered By: Dr. Cox on 01-20-2023 Specific gravity (U) [Rel density] 1.015 1.002-1.030 [facility] Urobilinogen Auto test strip Ql (U)Ordered By: Dr. Cox on 01-20-2023 Urobilinogen Ql (U) Normal mg/dl Normal [facility] Absolute lymphocyte counton 09-08-2022 Lymphocytes Auto (Unsp spec) [#/Vol] 2.17 10*3/uL 0.83-4.51 [facility] Work Phone: Basophil percentageon 2021 Basophils/100 WBC (Bld) 0.4 % 0-1 [facility] Work Phone: Bilirubin [Mass/Vol] 0.40 mg/dL 0.20-1.00 [facility] Work Phone: Comment on above: For patients on eltr ombopag therapy, use of Dimension Dixon TBIL is not recommended. Chloride [Moles/Vol] 112 mmol/L 98-107 [facility] Work Phone: Eosinophils/100 WBC (Bld) 3.0 % 0-5 [facility] Work Phone: Glucose [Mass/Vol] 113 mg/dL 74-106 [facility] Work Phone: Comment on above: Fasting Glucose resu lt from 100 to 125 mg/dL suggests IMPAIRED HOMEOSTASIS per A.D.A. criteria. Neutrophils (Bld) [#/Vol] 2.4 10*3/uL 2.0-7.7 [facility] Work Phone: Neutrophils/100 WBC (Bld) 46.9 % 47-70 [facility] Work Phone: Potassium [Moles/Vol] 3.8 mmol/L 3.5-5.1 [facility] Work Phone: [phone] Protein [Mass/Vol] 5.6 g/dL 6.4-8.2 [facility] Work Phone: [phone] Sodium [Moles/Vol] 141 mmol/L 136-145 [facility] Work Phone: WBC (Bld) [#/Vol] 5.0 10*3/uL 4.4-11.0 [facility] Work Phone: Blood erythrocytes count (nu mber/volume)on 09-08-2022 RBC (Bld) [#/Vol] 4.66 10*6/uL 4.2-5.4 [facility] Work Phone: Blood hemoglobin measurement (mass/volume)on 09-08-2022 Hemoglobin (Bld) [Mass/Vol] 12.6 g/dL 12.0-15.0 [facility] Work Phone: Blood lymphocytes/100 leukoc yteson 09-08-2022 Lymphocytes/100 WBC (Bld) 43.1 % 19-41 [facility] Work Phone: Blood monocytes/100 leukocyt eson 09-08-2022 Monocytes/100 WBC (Bld) 6.2 % 0-10 [facility] Work Phone: Blood platelet mean volumeon 09-08-2022 Platelet mean volume (Bld) [Entitic vol] 10.5 fL 6.2-12.0 [facility] Work Phone: Determination of erythrocyte mean corpuscular volume (MCV)on 09-08-2022 MCV (RBC) [Entitic vol] 85.4 fL 81-99 [facility] Work Phone: Glucose Glucometer (BldC) [M ass/Vol]on 09-08-2022 Glucose [Mass/Vol] 80 mg/dL 74-106 [facility] Work Phone: Comment on above: MANAGEMENT OF PATIEN T CARE PER NURSING PROTOCOL Hematocrit Auto (Bld) [Volum e fraction]on 09-08-2022 Hematocrit (Bld) [Volume fraction] 39.8 % 37-47 [facility] Work Phone: Laboratory - Chemistry and C hemistry - challengeon 09-08-2022 ALP [Catalytic activity/Vol] 67 U/L 45-117 [facility] Work Phone: ALT [Catalytic activity/Vol] 30 U/L 13-56 [facility] Work Phone: CO2 [Moles/Vol] 24.0 mmol/L 21.0-32.0 [facility] Work Phone: Globulin (S) [Mass/Vol] 2.5 g/dL 2.2-4.2 [facility] Work Phone: Urea nitrogen/Creatinine [Mass ratio] 45.3 mg/mg 10-20 [facility] Work Phone: Laboratory - Hematology and Cell countson 09-08-2022 Erythrocyte distribution width (RBC) [Entitic vol] 43.7 fL 35.1-43.9 [facility] Work Phone: Erythrocyte distribution width (RBC) [Ratio] 14.1 % 11.6-14.6 [facility] Work Phone: Immature granulocytes/100 WBC (Bld) 0.400 % 0.0-0.9 [facility] Work Phone: Comment on above: IG% - Immature Granu locytes (promyelocytes, myelocytes and metamyelocytes) > 1% indicates that a LEFT SHIFT is Present. MCH (RBC) [Entitic mass] 27.0 pg 27.0-32.0 [facility] Work Phone: Nucleated RBC/100 WBC (Bld) [Ratio] 0 % 0-5 [facility] Work Phone: MCHC Auto (RBC) [Mass/Vol]on 09-08-2022 MCHC (RBC) [Mass/Vol] 31.7 g/dL 32-36 [facility] Work Phone: No Panel Informationon 09-08 Estimated Creatinine Clearance Calc 163.43 ml/min [facility] Work Phone: Estimated GFR (MDRD) Amer 175 mL/min >60 [facility] Work Phone: Comment on above: GFR Calc Estimated GFR (MDRD) Non-Af Amer 144 mL/min >60 [facility] Work Phone: Comment on above: Non- GFR Calc Platelets bldon 09-08-2022 Platelets (Bld) [#/Vol] 190 10*3/uL 150-450 [facility] Work Phone: Serum or plasma albumin faizan urement (mass/volume)on 09-08-2022 Albumin [Mass/Vol] 3.1 g/dL 3.2-5.0 [facility] Work Phone: Serum or plasma albumin/glob ulin mass ratioon 09-08-2022 Albumin/Globulin [Mass ratio] 1.2 {ratio} 0.9-2.4 [facility] Work Phone: Serum or plasma calcium faizan urement (mass/volume)on 09-08-2022 Calcium [Mass/Vol] 8.3 mg/dL 8.5-10.1 [facility] Work Phone: Serum or plasma creatinine m easurement (mass/volume)on 09-08-2022 Creatinine [Mass/Vol] 0.46 mg/dL 0.55-1.02 [facility] Work Phone: Comment on above: The validity of the calculated GFR & GFRAA in patients over 70 years has not been determined. Clinical correlation is essential. Serum or plasma urea nitroge n measurement (mass/volume)on 09-08-2022 Urea nitrogen [Mass/Vol] 21 mg/dL 7-18 [facility] Work Phone: Thin prep Papanicolaou smear with manual screeningon 09-08-2022 Thin prep Papanicolaou smear with manual screening 18 U/L 15-37 [facility] Work Phone: Thin prep Papanicolaou smear with manual screening 5 5-15 [facility] Work Phone: Absolute lymphocyte counton 09-07-2022 Lymphocytes Auto (Unsp spec) [#/Vol] 2.07 10*3/uL 0.83-4.51 [facility] Work Phone: Basophil percentageon 2021 Basophils/100 WBC (Bld) 0.6 % 0-1 [facility] Work Phone: Chloride [Moles/Vol] 112 mmol/L 98-107 [facility] Work Phone: Eosinophils/100 WBC (Bld) 2.7 % 0-5 [facility] Work Phone: Glucose [Mass/Vol] 140 mg/dL 74-106 [facility] Work Phone: Comment on above: Fasting Glucose resu lt greater than or equal to 126 mg/dL suggests DIABETES MELLITUS per A.D.A. criteria. Neutrophils (Bld) [#/Vol] 2.7 10*3/uL 2.0-7.7 [facility] Work Phone: Neutrophils/100 WBC (Bld) 51.4 % 47-70 [facility] Work Phone: Potassium [Moles/Vol] 3.8 mmol/L 3.5-5.1 [facility] Work Phone: Sodium [Moles/Vol] 141 mmol/L 136-145 [facility] Work Phone: WBC (Bld) [#/Vol] 5.3 10*3/uL 4.4-11.0 [facility] Work Phone: Blood erythrocytes count (nu mber/volume)on 09-07-2022 RBC (Bld) [#/Vol] 5.08 10*6/uL 4.2-5.4 [facility] Work Phone: Blood hemoglobin measurement (mass/volume)on 09-07-2022 Hemoglobin (Bld) [Mass/Vol] 13.9 g/dL 12.0-15.0 [facility] Work Phone: Blood lymphocytes/100 leukoc yteson 09-07-2022 Lymphocytes/100 WBC (Bld) 39.4 % 19-41 [facility] Work Phone: Blood monocytes/100 leukocyt eson 09-07-2022 Monocytes/100 WBC (Bld) 5.5 % 0-10 [facility] Work Phone: Blood platelet mean volumeon 09-07-2022 Platelet mean volume (Bld) [Entitic vol] 10.3 fL 6.2-12.0 [facility] Work Phone: Determination of erythrocyte mean corpuscular volume (MCV)on 09-07-2022 MCV (RBC) [Entitic vol] 85.2 fL 81-99 [facility] Work Phone: Hematocrit Auto (Bld) [Volum e fraction]on 09-07-2022 Hematocrit (Bld) [Volume fraction] 43.3 % 37-47 [facility] Work Phone: INR in Blood by Coagulation assayon 09-07-2022 INR Coag (Bld) [Relative time] 1.0 {INR} [facility] Work Phone: Laboratory - Chemistry and C hemistry - challengeon 09-07-2022 CO2 [Moles/Vol] 24.0 mmol/L 21.0-32.0 [facility] Work Phone: Urea nitrogen/Creatinine [Mass ratio] 39.5 mg/mg 10-20 [facility] Work Phone: Laboratory - Coagulationon 1 11-08-2021 aPTT Coag (Bld) [Time] 27.9 s 24.1-36.2 [facility] Work Phone: PT Coag (PPP) [Time] 13.1 s 11.7-14.9 [facility] Work Phone: Laboratory - Hematology and Cell countson 09-07-2022 Erythrocyte distribution width (RBC) [Entitic vol] 42.9 fL 35.1-43.9 [facility] Work Phone: Erythrocyte distribution width (RBC) [Ratio] 13.8 % 11.6-14.6 [facility] Work Phone: Immature granulocytes/100 WBC (Bld) 0.400 % 0.0-0.9 [facility] Work Phone: Comment on above: IG% - Immature Granu locytes (promyelocytes, myelocytes and metamyelocytes) > 1% indicates that a LEFT SHIFT is Present. MCH (RBC) [Entitic mass] 27.4 pg 27.0-32.0 [facility] Work Phone: Nucleated RBC/100 WBC (Bld) [Ratio] 0 % 0-5 [facility] Work Phone: MCHC Auto (RBC) [Mass/Vol]on 09-07-2022 MCHC (RBC) [Mass/Vol] 32.1 g/dL 32-36 [facility] Work Phone: No Panel Informationon 09-07 Troponin I High Sensitivity 120 pg/mL 3.0-54.0 [facility] Work Phone: Comment on above: Please Note: New Lorna t Units and Gender Specific Reference Ranges. For more information see Policy Stat Procedure Dixon High Sensitivity Troponin (TNIH) and attachments. Troponin I High Sensitivity 118 pg/mL 3.0-54.0 [facility] Work Phone: Comment on above: Please Note: New Lorna t Units and Gender Specific Reference Ranges. For more information see Policy Stat Procedure Dixon High Sensitivity Troponin (TNIH) and attachments. Estimated Creatinine Clearance Calc 127.25 ml/min [facility] Work Phone: Estimated GFR (MDRD) Amer 134 mL/min >60 [facility] Work Phone: Comment on above: GFR Calc Estimated GFR (MDRD) Non-Af Amer 111 mL/min >60 [facility] Work Phone: Comment on above: Non- GFR Calc Platelets bldon 09-07-2022 Platelets (Bld) [#/Vol] 207 10*3/uL 150-450 [facility] Work Phone: Serum or plasma calcium faizan urement (mass/volume)on 09-07-2022 Calcium [Mass/Vol] 8.8 mg/dL 8.5-10.1 [facility] Work Phone: Serum or plasma creatinine m easurement (mass/volume)on 09-07-2022 Creatinine [Mass/Vol] 0.58 mg/dL 0.55-1.02 [facility] Work Phone: Comment on above: The validity of the calculated GFR & GFRAA in patients over 70 years has not been determined. Clinical correlation is essential. Serum or plasma urea nitroge n measurement (mass/volume)on 09-07-2022 Urea nitrogen [Mass/Vol] 23 mg/dL 7-18 [facility] Work Phone: Thin prep Papanicolaou smear with manual screeningon 09-07-2022 Thin prep Papanicolaou smear with manual screening 5 5-15 [facility] Work Phone: XR Foot - right AP and Later breanne 08-11-2021 IMPRESSION: No acute osseous abnormality identified. 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 DIVISION OF RADIOLOGY Provider, [facility] Gilbert Soares - 08/11/2021 * * *Final Report* * [...] IMPRESSION IMPRESSION: No acute osseous abnormality identified. Radio Frequency Design Engineer: PSCB Transcribe Date/Time: Aug 11 2021 2:21P Dictated by : SUJATA MERAZ MD This examination was interpreted and the report reviewed and electronically signed by: SUJATA MERAZ MD on Aug 11 2021 2:24PM EST [facility] Radiology Study [facility] (narrative[facility] Foot - right AP and Later alOrdered By: [facility] Provider on 08-11-2021 [facility] COVID-19 virus antigen assay SARS-CoV-2 (COVID-19) Ag IA.rapid Ql (Resp) [facility] Work Phone: Vital Signs Date Time Vital Sign Value Performing Clinician Facility 07-16-2025 21:56-0400 Body temperature 97.9 [degF] Yenny Kauffman [employer] Work Phone: [facility] 07-16-2025 21:56-0400 Diastolic blood pressure 82 mm[Hg] Yenny Kauffman [employer] Work Phone: [facility] 07-16-2025 21:56-0400 Heart rate 85 /min Yenny Kauffman [employer] Work Phone: [facility] 07-16-2025 21:56-0400 Respiratory rate 18 /min Yenny Kauffman [employer] Work Phone: [facility] 07-16-2025 21:56-0400 SaO2% (BldA) [Mass fraction] 99 % Yenny Kauffman [employer] Work Phone: [facility] 07-16-2025 21:56-0400 Systolic blood pressure 152 mm[Hg] Yenny Kauffman NP-C Work Phone: 6(088)344-235216 [place] [address] 07-16-2025 17:43-0400 Body height 149.86 cm Yenny Kauffman [employer] Work Phone: 8(967)758-554616 [place] [address] 07-16-2025 17:43-0400 Body mass index (BMI) [Ratio] 39.6 kg/m2 Yenny Kauffman [employer] Work Phone: 4(611)983-638516 [place] [address] 07-16-2025 17:43-0400 Body weight 89.1 kg Yenny Kauffman [employer] Work Phone: 3(577)264-243216 [place] [address] 05-13-2025 14:50-0400 Body temperature 97.8 [degF] Yenny Kauffman [employer] Work Phone: 3(068)329-891216 [place] [address] 05-13-2025 14:50-0400 Diastolic blood pressure 67 mm[Hg] Yenny Kauffman [employer] Work Phone: 3(233)437-005716 [place] [address] 05-13-2025 14:50-0400 Heart rate 72 /min Yennyjorge luis Kauffman [employer]C Work Phone: 7(440)515-408216 [place] [address] 05-13-2025 14:50-0400 Respiratory rate 16 /min Yenny Kauffman [employer] Work Phone: 9(726)267-726216 [place] [address] 05-13-2025 14:50-0400 SaO2% (BldA) [Mass fraction] 97 % Yenny Kauffman [employer] Work Phone: 3(961)027-598216 [place] [address] 05-13-2025 14:50-0400 Systolic blood pressure 112 mm[Hg] Yenny Kauffman [employer] Work Phone: 4(430)128-743916 [place] [address] 05-13-2025 13:44-0400 Body weight 87 kg Yenny Kauffman [employer] Work Phone: 4(407)431-251016 [place] [address] 05-09-2025 09:50-0400 Body mass index (BMI) [Ratio] 43.2 kg/m2 Yenny Kauffman [employer] Work Phone: 9(442)864-408116 [place] [address] 05-09-2025 09:50-0400 Body temperature 97.3 [degF] Yenny Kauffman [employer]C Work Phone: [facility] 05-09-2025 09:50-0400 Body weight 87.54 kg Yenny Kauffman [employer] Work Phone: 4(381)926-224779 [place] [address] 05-09-2025 09:50-0400 Diastolic blood pressure 83 mm[Hg] Yenny Kauffman [employer] Work Phone: 7(080)453-152379 [place] [address] 05-09-2025 09:50-0400 Heart rate 95 /min Yenny Kauffman [employer] Work Phone: 1(323)568-147579 [place] [address] 05-09-2025 09:50-0400 Respiratory rate 20 /min Yenny Kauffman [employer] Work Phone: 5(384)369-104679 [place] [address] 05-09-2025 09:50-0400 SaO2% (BldA) [Mass fraction] 96 % Yenny Kauffman [employer] Work Phone: 5(506)959-893679 [place] [address] 05-09-2025 09:50-0400 Systolic blood pressure 126 mm[Hg] Yenny Kauffman [employer] Work Phone: 3(121)324-762479 [place] [address] 04-13-2025 12:56-0400 Body temperature 97.9 [degF] Yenny Kauffman [employer] Work Phone: 0(713)957-968679 [place] [address] 04-13-2025 12:56-0400 Diastolic blood pressure 96 mm[Hg] Yenny Kauffman [employer] Work Phone: 6(498)613-888479 [place] [address] 04-13-2025 12:56-0400 Heart rate 75 /min Yenny Kauffman [employer] Work Phone: 7(375)874-254479 [place] [address] 04-13-2025 12:56-0400 Respiratory rate 16 /min Yenny Kauffman [employer] Work Phone: 6(524)001-620079 [place] [address] 04-13-2025 12:56-0400 SaO2% (BldA) [Mass fraction] 97 % Yenny Kauffman [employer] Work Phone: 2(190)784-948079 [place] [address] 04-13-2025 12:56-0400 Systolic blood pressure 144 mm[Hg] Yenny Kauffman [employer] Work Phone: 8(054)293-947416 [place] [address] 04-13-2025 11:56-0400 Body height 142.24 cm Yenny Kauffman [employer] Work Phone: 0(881)863-307516 [place] [address] 04-13-2025 11:56-0400 Body mass index (BMI) [Ratio] 43.4 kg/m2 Yennyjonathan Kauffman [employer] Work Phone: 2(060)768-512116 [place] [address] 04-13-2025 11:56-0400 Body weight 87.99 kg Yennyjonathan Kauffman [employer] Work Phone: 5(519)688-499916 [place] [address] 03-25-2025 14:32-0400 Body height 142.24 cm Yenny Kauffman [employer] Work Phone: 3(900)403-021416 [place] [address] 02-07-2025 08:05-0400 Body height 142.24 cm Yenny Kauffman [employer] Work Phone: 0(170)172-859916 [place] [address] 02-07-2025 08:05-0400 Body mass index (BMI) [Ratio] 43.2 kg/m2 Yennyjonathan Kauffman [employer] Work Phone: 3(941)675-087016 [place] [address] 02-07-2025 08:05-0400 Body temperature 97.3 [degF] Yennyjonathan Kauffman [employer]C Work Phone: 0(567)391-414716 [place] [address] 02-07-2025 08:05-0400 Body weight 87.54 kg Yennyjonathan Kauffman [employer] Work Phone: 1(994)813-414116 [place] [address] 02-07-2025 08:05-0400 Diastolic blood pressure 89 mm[Hg] Yenny Kauffman [employer] Work Phone: 6(621)298-971916 [place] [address] 02-07-2025 08:05-0400 Heart rate 88 /min Yenny Kauffman [employer] Work Phone: 1(127)410-050516 [place] [address] 02-07-2025 08:05-0400 Respiratory rate 20 /min Yenny Kauffman [employer] Work Phone: 8(052)549-147716 [place] [address] 02-07-2025 08:05-0400 SaO2% (BldA) [Mass fraction] 96 % Yenny Kauffman [employer] Work Phone: 9(141)126-858716 [place] [address] 02-07-2025 08:05-0400 Systolic blood pressure 145 mm[Hg] Yenny CLAYTON Work Phone: [facility] 12-04-2023 14:05-0500 Body height 142.2 cm Pacc 1 Work Phone: [facility] 12-04-2023 14:05-0500 Body temperature 97.11 [degF] Pacc 1 Work Phone: [facility] 12-04-2023 14:05-0500 Body weight 86.64 kg Pacc 1 Work Phone: [facility] 12-04-2023 14:05-0500 Diastolic blood pressure 64 mm[Hg] Pacc 1 Work Phone: [facility] 12-04-2023 14:05-0500 Heart rate 84 /min Pacc 1 Work Phone: [facility] 12-04-2023 14:05-0500 Respiratory rate 16 /min Pacc 1 Work Phone: [facility] 12-04-2023 14:05-0500 SaO2% (BldA) [Mass fraction] 96 % Pacc 1 Work Phone: [facility] 12-04-2023 14:05-0500 Systolic blood pressure 122 mm[Hg] Pacc 1 Work Phone: [facility] 05-13-2023 09:44-0400 Body height 142.24 cm [facility] Work Phone: [facility] 05-13-2023 09:44-0400 Body mass index (BMI) [Ratio] 43 kg/m2 [facility] Work Phone: [facility] 05-13-2023 09:44-0400 Body temperature 97.9 [degF] [facility] Work Phone: [facility] 05-13-2023 09:44-0400 Body weight 87.08 kg [facility] Work Phone: 7(869)358-898279 [place] [address] 05-13-2023 09:44-0400 Diastolic blood pressure 85 mm[Hg] [facility] Work Phone: 6(906)846-908316 [place] [address] 05-13-2023 09:44-0400 Heart rate 88 /min [facility] Work Phone: 1(194)347-283516 [place] [address] 05-13-2023 09:44-0400 Respiratory rate 18 /min [facility] Work Phone: 8(291)543-445916 [place] [address] 05-13-2023 09:44-0400 SaO2% (BldA) [Mass fraction] 96 % [facility] Work Phone: 7(864)877-753816 [place] [address] 05-13-2023 09:44-0400 Systolic blood pressure 118 mm[Hg] [facility] Work Phone: 2(733)705-700316 [place] [address] 03-15-2023 15:06-0400 Body mass index (BMI) [Ratio] 42.8 kg/m2 [facility] Work Phone: 8(061)702-002016 [place] [address] 03-15-2023 15:06-0400 Body weight 86.63 kg [facility] Work Phone: 3(630)752-396316 [place] [address] 03-15-2023 15:06-0400 Diastolic blood pressure 76 mm[Hg] [facility] Work Phone: 7(305)409-173916 [place] [address] 03-15-2023 15:06-0400 Heart rate 63 /min [facility] Work Phone: 7(277)712-296616 [place] [address] 03-15-2023 15:06-0400 SaO2% (BldA) [Mass fraction] 96 % [facility] Work Phone: 0(192)010-468516 [place] [address] 03-15-2023 15:06-0400 Systolic blood pressure 112 mm[Hg] [facility] Work Phone: 8(889)845-331416 [place] [address] 02-07-2023 09:38-0400 Body height 142.24 cm [facility] Work Phone: 8(649)332-336516 [place] [address] 02-07-2023 09:38-0400 Body mass index (BMI) [Ratio] 42.3 kg/m2 [facility] Work Phone: 9(514)557-277516 [place] [address] 02-07-2023 09:38-0400 Body temperature 97.6 [degF] [facility] Work Phone: 8(435)965-877116 [place] [address] 02-07-2023 09:38-0400 Body weight 85.72 kg [facility] Work Phone: 1(267)506-628616 [place] [address] 02-07-2023 09:38-0400 Diastolic blood pressure 74 mm[Hg] [facility] Work Phone: 3(972)208-840616 [place] [address] 02-07-2023 09:38-0400 Heart rate 79 /min [facility] Work Phone: 3(102)981-331816 [place] [address] 02-07-2023 09:38-0400 Respiratory rate 18 /min [facility] Work Phone: 9(779)872-538316 [place] [address] 02-07-2023 09:38-0400 SaO2% (BldA) [Mass fraction] 96 % [facility] Work Phone: 9(567)251-398416 [place] [address] 02-07-2023 09:38-0400 Systolic blood pressure 111 mm[Hg] [facility] Work Phone: 1(853)832-675016 [place] [address] 01-21-2023 09:53-0400 Diastolic blood pressure 100 mm[Hg] [facility] Work Phone: 7(756)964-808616 [place] [address] 01-21-2023 09:53-0400 Heart rate 75 /min [facility] Work Phone: 2(689)377-320316 [place] [address] 01-21-2023 09:53-0400 Systolic blood pressure 148 mm[Hg] [facility] Work Phone: 0(324)289-016416 [place] [address] 01-21-2023 09:52-0400 Body temperature 97.6 [degF] [facility] Work Phone: 5(007)816-034416 [place] [address] 01-21-2023 09:52-0400 Respiratory rate 16 /min [facility] Work Phone: 8(734)672-618916 [place] [address] 01-21-2023 09:52-0400 SaO2% (BldA) [Mass fraction] 99 % [facility] Work Phone: 3(841)500-765816 [place] [address] 01-21-2023 06:00-0400 Body mass index (BMI) [Ratio] 43.4 kg/m2 [facility] Work Phone: [facility] 01-21-2023 06:00-0400 Body weight 88 kg [facility] Work Phone: [facility] 01-20-2023 15:53-0400 Body height 142.24 cm [facility] Work Phone: [facility] 01-20-2023 15:16-0400 Body temperature 97.6 [degF] [facility] 01-20-2023 15:16-0400 Diastolic blood pressure 100 mm[Hg] [facility] 01-20-2023 15:16-0400 Heart rate 80 /min [facility] 01-20-2023 15:16-0400 Respiratory rate 18 /min [facility] 01-20-2023 15:16-0400 SaO2% (BldA) [Mass fraction] 98 % [facility] 01-20-2023 15:16-0400 Systolic blood pressure 120 mm[Hg] [facility] 01-20-2023 12:22-0400 Body height 142.24 cm [facility] 01-20-2023 12:22-0400 Body mass index (BMI) [Ratio] 43 kg/m2 [facility] 01-20-2023 12:22-0400 Body weight 87.08 kg [facility] 09-08-2022 12:19-0500 Body temperature 98.5 [degF] [facility] Work Phone: [facility] Work Phone: 09-08-2022 12:19-0500 Diastolic blood pressure 78 mm[Hg] [facility] Work Phone: [facility] Work Phone: 09-08-2022 12:19-0500 Heart rate 84 /min [facility] Work Phone: [facility] Work Phone: 09-08-2022 12:19-0500 Respiratory rate 14 /min [facility] Work Phone: [facility] Work Phone: 09-08-2022 12:19-0500 SaO2% (BldA) [Mass fraction] 97 % [facility] Work Phone: [facility] Work Phone: 09-08-2022 12:19-0500 Systolic blood pressure 137 mm[Hg] [facility] Work Phone: [facility] Work Phone: 09-08-2022 06:00-0500 Body weight 82.7 kg [facility] Work Phone: [facility] Work Phone: 09-07-2022 16:21-0500 Body height 142.24 cm [facility] Work Phone: [facility] Work Phone: 09-07-2022 16:21-0500 Body mass index (BMI) [Ratio] 39.2 kg/m2 [facility] Work Phone: [facility] Work Phone: 09-07-2022 13:02-0500 Body height 142.24 cm [facility] Work Phone: 09-07-2022 13:02-0500 Body mass index (BMI) [Ratio] 40.1 kg/m2 [facility] Work Phone: 09-07-2022 13:02-0500 Body temperature 98 [degF] [facility] Work Phone: 09-07-2022 13:02-0500 Body weight 81.19 kg [facility] Work Phone: 09-07-2022 13:02-0500 Diastolic blood pressure 78 mm[Hg] [facility] Work Phone: 09-07-2022 13:02-0500 Heart rate 87 /min [facility] Work Phone: 09-07-2022 13:02-0500 Respiratory rate 16 /min [facility] Work Phone: 09-07-2022 13:02-0500 SaO2% (BldA) [Mass fraction] 96 % [facility] Work Phone: 09-07-2022 13:02-0500 Systolic blood pressure 132 mm[Hg] [facility] Work Phone: Encounters Encounter Date Encounter Type Care Provider Facility Start: 07-16-2025 End: 07-16-2025 Emergency department patient visit Yenny Kauffman Facility:[facility] Start: 05-29-2025 End: 05-29-2025 Patient encounter procedure Hermila BURTON -[facility] Work Phone: Start: 05-29-2025 End: 05-29-2025 ambulatory Yenny Kauffman [employer] Work Phone: -[facility] Start: 05-13-2025 Non-patient / Non-visit Bob Mcdowell nd, DO -[facility] Start: 05-13-2025 End: 05-13-2025 Admission to same day surgery center Bob Dueñas DO -Endoscopy Work Phone: Start: 05-13-2025 End: 05-13-2025 ambulatory Yenny Kauffman [employer] Work Phone: -Endoscopy Start: 05-09-2025 End: 05-09-2025 Patient encounter procedure [employer]ACHINE BL[employer]ER Dolores Hunt -[facility] Work Phone: Start: 05-09-2025 End: 05-09-2025 ambulatory Yenny Kauffman [employer] Work Phone: -[facility] Start: 05-02-2025 End: 05-02-2025 ambulatory Yenny Kauffman [employer] Work Phone: -Cardiovascular Services Start: 05-02-2025 End: 05-02-2025 Patient encounter procedure VSC Yenny Kauffman [employer]-C -Cardiovascular Services Work Phone: Start: 05-02-2025 End: 05-02-2025 ambulatory Yenny Kauffman Facility:[facility] Start: 04-15-2025 End: 04-15-2025 ambulatory Yenny Kauffman [employer] Work Phone: -Laboratory [facility] Start: 04-15-2025 End: 04-15-2025 Patient encounter procedure VS Yenny Kauffman [employer]C -Laboratory [facility] Start: 04-15-2025 End: 04-15-2025 ambulatory Yenny Kauffman Facility:[facility] Start: 04-13-2025 End: 04-13-2025 Emergency department patient visit Yenny Kauffman [employer] Work Phone: -Emergency Department Work Phone: Start: 04-10-2025 End: 04-10-2025 ambulatory Yenny Kauffman [employer] Work Phone: -Nuclear Medicine [facility] Start: 04-10-2025 End: 04-10-2025 Patient encounter procedure Jennie Gutierrez [employer]-C -Nuclear Medicine [facility] Work Phone: Start: 04-10-2025 End: 04-10-2025 ambulatory Yenny Kauffman Facility:[facility] Start: 03-25-2025 End: 03-25-2025 Patient encounter procedure Jennie Gutierrez [employer]-C -[facility] Work Phone: Start: 03-25-2025 End: 03-25-2025 ambulatory Yenny Kauffman [employer]C Work Phone: [facility] Work Phone: Start: 03-21-2025 End: 03-21-2025 ambulatory Yenny Kauffman [employer] Work Phone: -Pulmonary Services/Neurology Start: 03-21-2025 End: 03-21-2025 Patient encounter procedure VADIM Hunt -Pulmonary Services/Neurology Work Phone: Start: 03-21-2025 End: 03-21-2025 ambulatory Jesse Ramon Facility:[facility] Start: 03-14-2025 End: 03-14-2025 ambulatory Yenny Kauffman [employer] Work Phone: [facility] Work Phone: Start: 03-14-2025 End: 03-14-2025 Patient encounter procedure [facility] Yennyjonathan Kauffman [employer]-C -Outpatient Breast Imaging Work Phone: Start: 03-14-2025 End: 03-14-2025 ambulatory Yenny Kauffman Facility:[facility] Start: 02-25-2025 End: 02-25-2025 ambulatory Yenny Kauffman [employer] Work Phone: [facility] Work Phone: Start: 02-25-2025 End: 02-25-2025 Patient encounter procedure VADIM Hunt -Sleep Lab Work Phone: Start: 02-25-2025 End: 02-25-2025 ambulatory Yenny Kauffman Facility:[facility] Start: 02-07-2025 End: 02-07-2025 Patient encounter procedure VADIM Hunt -[facility] Work Phone: Start: 02-07-2025 End: 02-07-2025 ambulatory Yenny Kauffman Facility:[facility] Start: 01-14-2025 End: 01-14-2025 Patient encounter procedure [facility] Yennyjonathan Kauffman [employer]-C -Laboratory [facility] Start: 01-14-2025 End: 01-14-2025 ambulatory Yenny Kauffman Facility:[facility] Start: 03-12-2024 End: 03-12-2024 ambulatory YENNY KAUFFMAN [employer] Facility:B Start: 03-12-2024 End: 03-12-2024 Patient encounter procedure YENNYJONATHAN KAUFFMAN [employer] [facility] Start: 12-22-2023 End: 12-22-2023 ambulatory YENNY KAUFFMAN Facility:[facility] Start: 12-22-2023 End: 12-22-2023 Patient encounter procedure Corby Power Work Phone: Podiatry Comment on above: Open wound of toe, i nitial encounter (Primary Dx) Start: 12-11-2023 Telephone encounter Corby Te charlee Work Phone: Podiatry Comment on above: Patient Question Start: 12-08-2023 End: 12-08-2023 ambulatory CAYLA CHOWDHURY Facility:[facility] Start: 12-04-2023 End: 12-04-2023 Admission to establishment [facility] [place] 1 Work Phone: [facility] Start: 12-04-2023 End: 12-04-2023 ambulatory Pac [place] 1 Work Phone: Pre Anesthesia Comment on above: Preoperative examina tion (Primary Dx); Chronic bronchitis with COPD (chronic obstructive pulmonary disease) (HCC); Fatty liver; Gastroesophageal reflux disease, unspecified whether esophagitis present; Valvular heart disease; Primary hypertension; Mixed hyperlipidemia; Morbidly obese (HCC) Start: 12-04-2023 End: 12-04-2023 Preprocedural examination done [facility] [place] 1 Work Phone: [facility] Work Phone: Start: 11-14-2023 End: 11-14-2023 ambulatory CAYLA Burdick CHOWDHURY Facility:[facility] Start: 11-13-2023 Telephone encounter Corby Ck deshpande Work Phone: Podiatry Comment on above: Patient Update Start: 11-13-2023 End: 11-13-2023 ambulatory CAYLA Burdick CHOWDHURY [facility] [facility] Start: 11-13-2023 End: 11-13-2023 Patient encounter procedure [employer] [employer] Work Phone: Podiatry Comment on above: Onychomycosis (Prima ry Dx) Start: 09-08-2023 End: 09-08-2023 ambulatory CAYLA Burdick [place] Facility:[facility] Start: 08-15-2023 End: 08-15-2023 ambulatory CAYLA Burdick [place] Facility:[facility] Start: 08-15-2023 End: 08-15-2023 Patient encounter procedure [employer] [employer] Work Phone: Podiatry Comment on above: Onychomycosis (Prima ry Dx); Diminished pulses in lower extremity; Pain in toe of left foot; Pain in toe of right foot Start: 05-13-2023 End: 05-13-2023 Emergency department patient visit [facility] Work Phone: [facility]-Emergency Department Work Phone: Start: 03-15-2023 End: 03-15-2023 Patient encounter procedure [facility] Work Phone: [facility] Work Phone: Start: 03-08-2023 End: 03-08-2023 Patient encounter procedure [facility] Start: 02-08-2023 End: 02-08-2023 ambulatory [facility] Work Phone: [facility] Work Phone: Start: 02-08-2023 End: 02-08-2023 Patient encounter procedure [facility] Work Phone: [facility]-Pulmonary Services/Neurology Start: 02-07-2023 End: 02-07-2023 Patient encounter procedure [facility] Work Phone: [facility]-Pulmonary Medicine [facility] Start: 01-21-2023 Non-patient / Non-visit [facility] Work Phone: [facility] Start: 01-21-2023 Non-patient / Non-visit [facility] Work Phone: [facility] Start: 01-20-2023 End: 01-20-2023 Non-patient / Non-visit [facility] Work Phone: [facility] Start: 01-20-2023 End: 01-21-2023 Evaluation and management of inpatient [facility]-Progressive Care Unit Start: 01-20-2023 End: 01-21-2023 observation encounter [facility] Work Phone: [facility] Work Phone: Start: 09-08-2022 Non-patient / Non-visit [facility] Work Phone: [facility] Start: 09-07-2022 Non-patient / Non-visit [facility] Work Phone: [facility] Start: 09-07-2022 Non-patient / Non-visit [facility] Work Phone: [facility] Start: 09-07-2022 End: 09-08-2022 Evaluation and management of inpatient [facility]-Progressive Care Unit Start: 02-03-2022 End: 02-03-2022 Patient encounter procedure [facility]-Outpatient Breast Imaging Start: 08-11-2021 End: 08-11-2021 Subsequent hospital visit by physician [facility] Work Phone: Radiology Procedures Date Procedure Procedure Detail Performing Clinician Start: 07-16-2025 Ct abdomen & pelvis w/contrast material Yenny Kauffman [employer] Work Phone: Start: 07-16-2025 Estimated creatinine clearance Yenny Kauffman [employer] Work Phone: Start: 05-13-2025 Colonoscopy Yenny de anda [employer] Work Phone: Start: 04-15-2025 D-dimer assay, quantitative Yenny Kauffman [employer] Work Phone: Comment on above: NORMAL D-Dimer level (<0.50) indicates no DVT or PE. Start: 04-10-2025 Radionuclide gastric emptying study Yenny Kauffman [employer] Work Phone: Start: 03-14-2025 Screening mammography Blaine Kauffman [employer] Work Phone: Start: 03-26-2024 Lipid 1996 panel - S williams or Plasma [facility] [place] Work Phone: Start: 05-13-2023 Plain x-ray of elbow [facility] Work Phone: Start: 01-20-2023 Plain chest X-ray Start: 01-20-2023 CT of head without contrast Start: 01-17-2023 Lipid 1996 panel - S williams or Plasma Corby Tono Work Phone: Start: 09-07-2022 Plain chest X-ray Start: 02-03-2022 Screening mammography Start: 08-11-2021 Radiologic examinati on foot 2 views [facility] Provider Start: 04-18-1982 Hysterectomy TED VALENCIA DOUGH BRAKER H/O: hysterectomy H/O: hysterectomy [facility] Work Phone: Viral antigen assay Plan of Treatment Date Care Activity Detail Author Start: 03-26-2029 Lipid panel Lipid Screening [facility] Start: 02-14-2028 HPV Testing HPV Testing [facility] Start: 02-14-2028 Pap Testing Pap Testing [facility] Start: 02-14-2028 Screening for malign ant neoplasm of cervix [facility] Start: 01-18-2028 Lipid 1996 panel - S williams or Plasma Lipid Screening [facility] Start: 01-18-2028 Lipid panel Lipid Screening [facility] Start: 03-26-2027 Diabetes Screening Diabetes Screenin [facility] Start: 01-17-2026 Diabetes Screening Diabetes Screenin g [facility] Start: 07-16-2025 [facility] Start: 05-13-2025 Colonoscopy w/biopsy single/multiple COLONOSCOPY AND BIOPSY [facility] Start: 05-13-2025 Endoscopy upper smal l intestine w/biopsy SMALL BOWEL ENDOSCOPY/BIOPSY [facility] Start: 05-13-2025 Patient discharge [facility] Start: 04-13-2025 End: 04-13-2025 [facility] Start: 03-21-2025 Measurement of respiratory function [facility] Start: 12-03-2024 BP Controlled (<130/80) BP Controlle d (<130/80) [facility] Start: 06-02-2024 Covid-19 Vaccine () Covid-19 Vaccine () [facility] Start: 06-02-2024 Influenza vaccination Influenza Vacc ine (#1) [facility] Start: 2024 Advance Directive Discussion Advance Directive Discussion [facility] Start: 2024 Screening for osteoporosis Bone Density Screening [facility] Start: 02-26-2024 Urine microalbumin profile DTaP,Tdap,Td Vaccine (2 - Td or Tdap) [facility] Start: 10-02-2023 Depression Assessment Depression Ass essment [facility] Start: 06-02-2023 Covid-19 Vaccine () Covid-19 Vaccine () [facility] Start: 06-02-2023 Influenza vaccination Influenza Vacc ine (#1) [facility] Start: 05-13-2023 Plain x-ray of hand Hand Min 3 Views [facility] Start: 05-13-2023 Radiologic examinati on of knee Knee 4 or More Views [facility] Start: 05-13-2023 XR Hand GE 3 Views [facility] Start: 05-13-2023 XR Knee GE 4 Views [facility] Start: 01-21-2023 Patient discharge [facility] Start: 01-20-2023 [facility] Start: 01-20-2023 Assessment of risk o f venous thromboembolism [facility] Start: 01-20-2023 Incentive spirometry [facility] Start: 01-20-2023 Insertion of cathete r into peripheral vein [facility] Start: 01-20-2023 Measuring intake and output [facility] Start: 01-20-2023 Oxygen therapy [facility] Start: 01-20-2023 Providing care accor ding to standard [facility] Start: 01-20-2023 Tobacco use cessatio n education [facility] Start: 01-20-2023 [facility] Start: 01-20-2023 Following clinical pathway protocol [facility] Start: 01-20-2023 Verification routine [facility] Start: 01-20-2023 Admission procedure [facility] Start: 01-20-2023 Troponin I measurement [facility] Start: 10-02-2022 Depression Assessment Depression Ass essment [facility] Start: 09-08-2022 Patient discharge [facility] Work Phone: Start: 09-08-2022 Notification of physician [facility] Work Phone: Start: 09-08-2022 Patient education [facility] Work Phone: Start: 09-08-2022 Pulse taking [facility] Work Phone: Start: 09-08-2022 Taking patient vital signs [facility] Work Phone: Start: 09-08-2022 Wound care [facility] Work Phone: Start: 09-08-2022 [facility] Work Phone: Start: 09-07-2022 Catheterization of vein [facility] Work Phone: Start: 09-07-2022 Medication not administered [facility] Work Phone: Start: 09-07-2022 [facility] Work Phone: Start: 09-07-2022 Care regimes management [facility] Work Phone: Start: 09-07-2022 Notification of physician [facility] Work Phone: Start: 09-07-2022 Assessment of risk o f venous thromboembolism [facility] Work Phone: Start: 09-07-2022 Catheterization of vein [facility] Work Phone: Start: 09-07-2022 Incentive spirometry [facility] Work Phone: Start: 09-07-2022 Insertion of cathete r into peripheral vein [facility] Work Phone: Start: 09-07-2022 Measuring intake and output [facility] Work Phone: Start: 09-07-2022 Providing care accor ding to standard [facility] Work Phone: Start: 09-07-2022 Provision of activit y privileges [facility] Work Phone: Start: 09-07-2022 Referral to x ray technician [facility] Work Phone: Start: 09-07-2022 End: 09-07-2022 [facility] Work Phone: Start: 09-07-2022 End: 09-07-2022 Following clinical pathway protocol [facility] Work Phone: Start: 09-07-2022 Admission procedure [facility] Work Phone: Start: 09-07-2022 [facility] Work Phone: Start: 09-07-2022 [facility] Work Phone: Start: 2019 RSV Vaccine (1 - 1-d ose 60+ series) RSV Vaccine (1 - 1-dose 60+ series) [facility] Start: 2019 RSV Vaccine (1 - Ris k 60-74 years 1-dose series) RSV Vaccine (1 - Risk 60-74 years 1-dose series) [facility] Start: 04-23-2016 Pneumococcal vaccination Pneum ococcal Vaccine (2 of 2 - PCV) [facility] Start: 04-23-2016 Pneumococcal Vaccine : 65+ (2 of 2 - PCV) Pneumococcal Vaccine: 65+ (2 of 2 - PCV) [facility] Start: 2009 Shingrix Vaccine (1 of 2) Kirk grix Vaccine (1 of 2) [facility] Start: 2004 Cologuard (FIT-DNA) Cologuard (FIT-D NA) [facility] Start: 2004 Colonoscopy Colonoscopy [facility] Start: 2004 Colorectal Cancer Screening Colorectal Cancer Screening [facility] Start: [address] Colonography [facility] Start: 2004 Fecal Occult Blood Fecal Occult Bloo d [facility] Start: 2004 Screening for malign ant neoplasm of colon [facility] Start: 2004 Sigmoidoscopy Sigmoidoscopy [facility] Start: 1999 Mammography Mammogram Screening [facility] Start: 1999 Screening for malign ant neoplasm of breast Mammogram Screening [facility] Start: 1989 Zoledronic acid therapy Alpha- 1 Antitrypsin Deficiency Screening [facility] Start: 1977 Annual PCP Team Environmental Compliance Engineer rosalba Disease Visit Annual PCP Team Chronic Disease Visit [facility] Start: 1977 Anxiety Screening Anxiety Screening [facility] Start: 1977 BP Controlled (<130/80) BP Controlle d (<130/80) [facility] Start: 1977 Depression Screening Depression Scre ening [facility] Start: 1977 Hepatitis C Screening Hepatitis C [facility] Start: 1977 Hepatitis C screening Hepatitis C Sc [facility] Start: 1977 HIV Screening HIV Screening [facility] Start: 1977 HIV screening HIV Screening [facility] Start: 1977 Spirometry Spirometry [facility] Start: 1959 Covid-19 Vaccine (#1) Covid-19 Vacci ne (#1) [facility] Measurement of respiratory function [facility] Patient Education [facility] Work Phone: Patient referral [facility] Work Phone: Polysomnography [facility] End: 08-15-2024 PVR ANK PRESS [facility] Vascular Lab Routine Diminished pulses in lower extremity Onychomycosis 1 Occurrences starting 08/15/2023 until 08/15/2024 [facility] Work Phone: Comment on above: 1 Occurrences starti ng 08/15/2023 until 08/15/2024 Radionuclide gastric emptying study [facility] [place] Immunizations Immunization Date Immunization Notes Care Provider Iwona nguyen 09-08-2022 influenza, injectabl e, quadrivalent, preservative free Yenny FREEMANC Work Phone: [facility] 09-08-2022 influenza, seasonal, injectable [facility] Work Phone: [facility] 09-08-2022 influenza virus vaccine, unspecified formulation Corby [employer] Work Phone: [facility] Payers Date Payer Category Payer Self-pay [id number] 2025 Self-pay [id number] 2025 Self-pay [id number] 2025 Self-pay [id number] 2024 Unknown [id number] 2014 Medicaid [id number] 1959 Unknown [id number] 2.16.8 [id number] Unknown [id number] Unknown [id number] Unknown [id number] Unknown [id number] 2.16.8 [id number] Unknown [id number] 2.16.8 [id number] Unknown [id number] 2.16.8 [id number] Unknown [id number] 2.16.8 [id number] Unknown [id number] 2.16.8 [id number] Unknown [id number] 2.16.8 [id number] Unknown [id number] 2.16.8 [id number] Unknown [id number] 2.16.8 [id number] Unknown [id number] 2.16.8 [id number] Unknown [id number] 2.16.8 [id number] Unknown [id number] 2.16.8 [id number] Unknown [id number] 2.16.8 [id number] Unknown [id number] 2.16.8 [id number] Unknown [id number] 2.16.8 [id number] Unknown [id number] 2.16.8 [id number] Unknown [id number] 2.16.8 [id number] Social History Date Type Detail Facility Start: 11-25-2020 End: 05-13-2023 Tobacco smoking status IDIS Unknown if ever smoked [facility] Start: 11-25-2020 None [facility] Start: 11-25-2020 Spouse/ Signif icant Other [facility] Start: 1960 Sex Assigned At Female [facility] Start: 12-04-2023 End: 07-16-2025 Tobacco smoking status Ex-smoker (finding) [facility] Start: 09-03-2021 Tobacco smoking status NHIS Never smoked tobacco [facility] Work Phone: Start: 09-03-2021 End: 12-04-2023 Tobacco use and exposure Smokeless tobacco non-user [facility] Work Phone: Start: 01-25-2009 End: 08-15-2023 Alcohol intake Current non-drinker of alcohol (finding) [facility] Start: 06-02-2021 End: 08-15-2023 History of Social function [facility] Start: 06-02-2021 End: 08-15-2023 Tobacco use panel [facility] National Score (1-100), lower number is lower risk 91 [facility] Start: 1960 Sex Assigned At Not on file C [facility] Start: 1975 End: 10-02-2003 History of tobacco use Current smoker [facility] Work Phone: Start: 1975 End: 10-02-2003 History of tobacco use Cigarette Smoker [facility] Work Phone: Goals Date Patient Goal Desired Activity /State Functional Status Date Assessment Result Facility 01-21-2023 Functional status Ambulates;Up ad adrianne Min [facility] Work Phone: 09-08-2022 Functional status Ambulates;Bedrest [facility] Work Phone: 09-08-2022 Functional status None [facility] Work Phone: Mental Status Date Assessment Result Facility 05-13-2025 Cognitive function Touch/Shaking [facility] Work Phone: 04-13-2025 Cognitive function Level Of Cons ciousness Awake;Alert;Appropriate;Follow s Commands [facility] Work Phone: 01-21-2023 Cognitive function Voice/Name [facility] Work Phone: 01-20-2023 Cognitive function Level Of Cons ciousness Awake;Alert;Appropriate;Follow s Commands [facility] Work Phone: 09-08-2022 Cognitive function Voice/Name [facility] Work Phone: 09-07-2022 Cognitive function Level Of Cons ciousness Awake;Alert;Appropriate [facility] Work Phone: Clinical Notes 08-11-2021 to 07-16-2025 Note Date & Type Note Facility 07-16-2025 Discharge summary [facility] 07-16-2025 Radiology Diagnostic study note [facility] Imaging Services [address] [place] [address] Abdomen/Pelvis W IV Cont ONLY MR#: [id number] Acct: [id number] Name: BRANDI SAUCEDA Rep #: [id number] : 1960 F 65 From: Yuri Jc MD PCP: RONEY Reyes, FORREST Status: REG ER Study:Abdomen/Pelvis W IV Cont ONLY Date of E xam: 07/16/25 Exam# [id number] Ordering Dr: Jeffery Whittaker MD PROCEDURE: ABDOMEN/PELVIS W IV CONT ONLY 07/16/2025 REASON FOR EXAM: PAIN TECHNIQUE: Procedure Code: [id number] Modality: CT Procedure: ABDOMEN/PELVIS W IV CONT ONLY Coronal and Sagittal reconstruction series were provided. One or more dose reduction techniques were used (e.g., Automated exposure control, adjustment of the mA and/or kV according to patient size, use of iterative reconstruction technique. FINDINGS: The lung bases are clear. The peripheral soft tissues unremarkable. No acute osseous abnormalities. Mild atherosclerosis. Normal caliber abdominal aorta. Hypodense liver suspicious for steatosis. The gallbladder is unremarkable. The pancreas, spleen, and adrenals are unremarkable. Symmetric enhancement of the bilateral kidneys. Urinary bladder is unremarkable. Colonic diverticulosis. Long segment wall thickening of the distal transverse and descending colon with mild adjacent fat stranding suspicious for nonspecific colitis. CT/Abdomen/Pelvis W IV Cont ONLY IMPRESSION: Long-segment wall thickening and mild adjacent fat stranding of the distal transverse and descending colon, consistent with nonspecific colitis. Correlate clinically and consider follow-up imaging if symptoms persist or worsen. Colonic diverticulosis without evidence of diverticulitis. Hepatic steatosis. No evidence of perforation, abscess, or bowel obstruction. Reading Location: [id number] CC: RONEY [employer]ACH[employer]ER-Cecil Kauffman; Dr. Jeffery Whittaker MD ~ Radio Frequency Design Engineer: Signed [facility] 07-16-2025 Discharge summary Note Date/Time July 16, 2025 9:34pm [facility] Medical Records Department [address] [place] [id number] Emergency Department Summary 07/16/25 MR#: [id number] Acct: [id number] Name: BRANDI SAUCEDA Rep #:[id number] : [id number] 65 From: Jeffery Whittaker MD PCP: RONEY Reyes, DULITE MACHINE BLUER-C Statu s:REG ER Location: ED HPI HPI - GI History of Present Illness Chief Complaint: GI Bleed Narrative Narrative: 65-year-old female presents with bright red blood per rectum that began early this morning. She states yesterday evening started having nausea and vomiting. She denies any hematemesis. She then started having bowel movements and bright red blood per rectum. She does not take any blood thinners. She is prediabetic. She does not take aspirin or ibuprofen/NSAIDs. She complains of abdominal pain in the bilateral lower quadrants as well. No exacerbating or alleviating factors. She was concerned because of the bright red blood per rectum especially with bowel movements. She denies any exacerbating or alleviating factors. She does state that she had colonoscopy within the last [address] Dueñas, and he did not find any diverticuli or abnormalities. [facility] Medical History Edentulism, complete Dietary restriction Non-smoker [...] PRN itch 02/07/25 Unknown History topical cream ondansetron HCl 4 mg tablet 4 mg PO Q8H PRN nausea and 03/25/25 05/12/25 Rx vomiting #30 tabs omeprazole 40 mg capsule,delayed 40 mg PO BID #90 caps 05/29/25 Unknown Rx release famotidine 40 mg tablet 40 mg PO QHS #30 tabs Unknown Rx ciprofloxacin HCl 500 mg tablet 500 mg PO BID #14 tabs 07/16/25 Unknown Rx (Cipro) hydrocortisone acetate 25 mg 25 mg [place] BID #12 ea 07/16 Unknown Rx rectal suppository (Anusol-HC) metronidazole 500 mg tablet 500 mg PO TID #21 tabs Unknown Rx Allergy/AdvReac Type Severity Reaction Status Date / Time latex Allergy Intermediate Other Verified 07/16/25 17:43 aspirin Allergy Vomiting Verified 07/16/25 17:43 Family History Father Diabetes Surgical History History of mandibular surgery H/O shoulder surgery H/O: hysterectomy Social History Smoking Status: Former smoker how long ago did patient quit smokin second hand exposure: Yes alcohol intake: former substance use type: does not use ROS ROS ED ROS Narrative Review of systems positive for nausea and vomiting-resolved. Positive bright red blood per rectum. No chest pain or shortness of breath, no lightheadedness or syncope. Does not take blood thinners. EXAM Physical Exam Narrative Exam Narrative: Afebrile. Vital signs noted. Nontoxic-appearing. Cardiovascular examination reveals intermittent tachycardia that is regular. Lungs are clear to auscultation bilaterally. The abdomen is soft with minimal tenderness to palpation to the bilateral lower quadrants, no guarding or rebound, positive bowel sounds. Neurological examination nonfocal, nonlateralizing. No pallor ofskin noted. Const Vital Signs: 07/16/25 17:43 07/16/25 19:42 07/16/25 19:56 Temperature 98.6 F Temperature Source Oral Pulse Rate 103 H 86 Pulse Rate [Lying] 84 Pulse Rate [Sitting (for 1 minute prior to obtaining)] 91 Pulse Rate [Standing (for 1 minute prior to obtaining)] 95 Respiratory Rate 20 H 16 Blood Pressure 142/90 H 150/102 H Blood Pressure [Lying] 137/80 H Blood Pressure [Sitting (for 1 minute prior to obtaining)] 143/88 H Blood Pressure [Standing (for 1 minute prior to obtaining)] 150/102 H Blood Pressure Mean 107 118 Blood Pressure Mean [Lying] 99 Blood Pressure Mean [Sitting (for 1 minute prior to obtaining)] 106 Blood Pressure Mean [Standing (for 1 minute prior to obtaining)] 118 Pulse Ox 99 98 Oxygen Delivery Method Room Air Room Air MDM MDM MDM Narrative Medical decision making narrative: The differential diagnosis includes but not limited to diverticular bleed versusAV malformation versus internal hemorrhoid. History and physical does not support brisk upper GI bleeding. She is not having hematemesis. She does not have history of ulcerative colitis or Crohn disease. Comprehensive workup was pursued. I do feel CT imaging is indicated. Anoscopy will also be performed. I will check her hemoglobin to see if she has anemia requiring transfusion but clinically she does not look tolerated. There is no central cyanosis. Orthostatics are negative. I reviewed her laboratory work and she has normal white count at 9.6, hemoglobin 14.2, hematocrit 43.6, platelet count normal at 218. CMP is remarkable for creatinine low at 0.61 with BUN of 14, glucose elevated at 157 but normal anion gap of 13. Normal sodium and potassium. LFTs slightly elevated at AST of 49 and ALT of 57 which I think is nonspecific, alk phos 113. Lipase normal at 25. Chaperoned anoscopy was performed and there is evidence of internal hemorrhoid with previous excoriation and bleeding. I do feel that this was probably the cause of her bright red blood per rectum. However, in review of the CT scan there is distal transverse colon and descending colon inflammation consistent with colitis. There was no blood above the anoscope. As she has no active bleeding and a normal hemoglobin with negative orthostatics, I do not feel that she requires admission. I will write her a prescription for Anusol HC suppositories. I will discuss patient with Dr. Dueñas her bond runner tosee if she needs to be started on antibiotics. I discussed patient with Dr. Dueñas who agrees with Buster and Rosy for the next 7 days. She should follow-up with him in the next 5 to 7 days. She will return with fever, increased pain, increased rectal bleeding, new or worsening symptoms. Disposition is discharged home in stable condition. History & Record Review Discussion w/independent historian: Patient Additional record(s) reviewed:: Prior ED visit (Noncontributory to current chiefcomplaint) Lab Data Attestation: I reviewed the patient's lab results. Labs: Laboratory Results - last 24 hr 07/16/25 18:39 WBC 9.6 RBC 5.14 Hgb 14.2 Hct 43.6 MCV 84.8 MCH 27.6 MCHC 32.6 RDW Std Deviation 43.8 RDW Coeff of Kameron 14.2 Plt Count 218 MPV 10.7 Immature Gran % (Auto) 0.200 Neut % (Auto) 74.7 H Lymph % (Auto) 17.9 L Concho % (Auto) 6.1 Eos % (Auto) 0.6 Baso % (Auto) 0.5 Absolute Neuts (auto) 7.2 Absolute Lymphs (auto) 1.71 Nucleated RBC % 0 Sodium 141 Potassium 4.1 Chloride 103 Carbon Dioxide 25.2 Anion Gap 13 BUN 14 Creatinine 0.61 L Estim Creat Clear Calc 68.73 Est GFR (MDRD) Non-Af 98 BUN/Creatinine Ratio 23.5 H Glucose 157 H Calcium 9.8 Total Bilirubin 0.54 AST 49 H ALT 57 H Alkaline Phosphatase 113 H Total Protein 6.8 Albumin 4.4 Globulin 2.4 Albumin/Globulin Ratio 1.9 Lipase 25 Radiography Diagnostic Testing: Clinical Impression(s) from Imaging Studies Abdomen/Pelvis CT 07/16/25 19:37 IMPRESSION: Long-segment wall thickening and mild adjacent fat stranding of the distal transverse and descending colon, consistent with nonspecific colitis. Correlate clinically and consider follow-up imaging if symptoms persist or worsen. Colonic diverticulosis without evidence of diverticulitis. Hepatic steatosis. No evidence of perforation, abscess, or bowel obstruction. Reading Location: [address] Management Discussion w/another healthcare provider: Fire Boat Engineer (Dr. Dueñas, gastroenterology) Discharge Plan Triage Chief Complaint: GI Bleed ED Provider: Jeffery Whittaker Dx/Rx/DC Orders Clinical Impression: Colitis, Rectal bleeding, Internal hemorrhoid, bleeding Instructions: ED Understanding Colitis, ED Hemorrhoids Prescriptions: New ciprofloxacin HCl [Cipro] 500 mg tablet 500 mg PO BID Qty: 14 0RF metronidazole 500 mg tablet 500 mg PO TID Qty: 21 0RF hydrocortisone acetate [Anusol-HC] 25 mg suppository 25 mg [place] BID Qty: 12 0RF No Action aspirin 81 mg tablet,delayed release (DR/EC) 81 mg PO DAILY sucralfate 1 gram tablet 1 g PO BID Qty: 60 10RF fluticasone propionate 50 mcg/actuation spray,suspension 2 spray intranasal QHS lisinopril 20 mg tablet 20 mg PO QDAY metoprolol succinate 25 mg tablet extended release 24 hr 25 mg PO QDAY triamcinolone acetonide 0.1 % cream 1 applic topical BID PRN (Reason: itch) Trelegy Ellipta 100-62.5-25 mcg blister with device 1 ea inhalation QDAY ipratropium-albuterol 0.5 mg-3 mg(2.5 mg base)/3 mL solution for nebulization 3 ml inhalation Q8 PRN (Reason: wheezing) (DME) nebulizers [Compact Compressor Nebulizer] Misc See Rx Instructions .Route Rx Instructions: As directed metformin 500 mg tablet extended release 24 hr 500 mg PO QDAY multivitamin Tablet 1 tab PO QDAY ondansetron HCl 4 mg tablet 4 mg PO Q8H PRN (Reason: nausea and vomiting) Qty: 30 0RF omeprazole 40 mg capsule,delayed release(DR/EC) 40 mg PO BID Qty: 90 2RF montelukast 10 MG tablet 10 mg PO [...] (Reason: allergy) 30 Days Qty: 0 0RF famotidine 40 mg tablet 40 mg PO QHS Qty: 30 2RF Primary Care Provider: Yenny Kauffman Referrals: Bob Dueñas DO [Med Staff - Active Staff, Gastroenterology] - 5-7 Days Yenny Kauffman, DULITE MACHINE BLUER-C [Primary Care Provider, Family Practice] Activity Restrictions/Additional Instructions: Take all the antibiotics as directed for the next week. Anusol suppositories twice a day. Follow-up with gastroenterology. Return to the emergency department with increased bleeding, fever, increased abdominal pain, new or worsening symptoms. Print Language: Hungarian Disposition Disposition: Home, Self Care What to do if you have Problems For any increased pain, shortness of breath, bleeding, nausea or vomiting, chestpain, or any unexpected problems, contact your Primary Care Provider. Call [facility] ([phone]) or report to the closest Emergency Room. Call 911 if necessary. 07/16/252133 <Electronically signed by Jeffery Whittaker MD> Cosigner Signature (if applicable): CC: RONEY DULITE MACHINE BLUER-C Yenny Kauffman ~ Signed [facility] Work Phone: 1(200) 361-922408-12-2025 Consult note [facility] Medical Records Department [address] [place] [address] Anesthesia Postop Eval II 05/13/25 1520 MR#: [id number] Acct: [id number] Name: BRANDI SAUCEDA Rep #:[id number] : 1960 64 From: Wilma pierre CRNA PCP: Yenny Kauffman, DHARAC, DULITE MACHINE BLUER-C Statu s:REG SDC Y Race: C Location: [place] [address] Anesthesia Postop Eval I Sum Postop Eval [...] No Complications Anesthesia Complication: No 05/13/25 1520 sarahi ICHTHYOLOGIST> Date _ Wilma Durham ICHTHYOLOGIST Cosigner Signature: Date CC: ~ Signed [facility]08-12-2025 Procedure note [facility] Medical Records Department [address] [place] [address] Colonoscopy Report MR#: [id number] Acct: [id number] Name: BRANDI SAUCEDA Rep #:[id number] : 1960 64 From: Bob Dueñas DO PCP: RONEY Reyes, FORREST Statu s:REG [facility] Patient Name: Brandi Sauceda Procedure Date: 05/13/2025 2:16 PM Date of : 1960 Age: 64 Procedure: Colonoscopy Indications: Abdominal pain in the left lower quadrant, Clinically significant diarrhea of unexplained origin Providers: Bob Dueñas DO Referring MD: Yenny Amanda, Forrest Medicines: Monitored Anesthesia Care Patient Profile: This [...] for surveillance. Procedure Code(s): --- Professional --- 89380, Colonoscopy, flexible; with biopsy, single or multiple CPT copyright 2021 [employer]. All rights reserved. The codes documented in this report are preliminary and upon composition roll maker and cutter review may be revised to meet current compliance requirements. oBb Dueñas DO 05/13/2025 2:44:52 PM This report has been signed electronically. Number of Addenda: 0 Note Initiated On: 05/13/2025 2:16 PM 05/13/25 1445 Date _ Bob sAkew Signature: Date (if indicated) CC: RONEY Dueñas DO ~ Date Dictated: 05/13/251415 Date Transcribed: Radio Frequency Design Engineer: BRI Parker [facility]08-12-2025 Procedure note [facility] Medical Records Department [address] [place] [address] Provation Physician Letter MR#: [id number] Acct: [id number] Name: BRANDI SAUCEDA Rep #:[id number] : 1960 64 From: Bob Dueñas DO PCP: RONEY Reyes, FORREST Statu s:REG SDC 05/13/2025 Forrest Gregory Re : Colonoscopy procedure for Brandi Sauceda [...] has been signed electronically. 05/13/25 1445 Date _ Bob Askew Signature: Date (if indicated) CC: RONEY Dueñas DO ~ Date Dictated: 05/13/251415 Date Transcribed: Radio Frequency Design Engineer: RF Signed [facility]08-12-2025 Procedure note [facility] Medical Records Department [address] [place] [address] EGD Report MR#: [id number] Acct: [id number] Name: BRANDI SAUCEDA Rep #:[id number] : 1960 64 From: Bob Dueñas DO PCP: RONEY Reyes, DULITE MACHINE BLUERAnnaC Statu s:REG SDC Patient Name: Brandi Sauceda Procedure Date: 05/13/2025 1:58 PM Date of : 1960 Age: 64 Procedure: Upper GI endoscopy Indications: Epigastric abdominal pain, Functional Dyspepsia, Dysphagia, Heartburn, Failure to respond to medical treatment Providers: Bob Dueñas DO Referring MD: Yenny Amanda, Cabinet And Trim Installerbryan Medicines: Monitored Anesthesia Care Patient Profile: This [...] pathology results. Procedure Code(s): --- Professional --- 66279, Small intestinal endoscopy, enteroscopy beyond second portion of duodenum, not including ileum; with biopsy, single or multiple CPT copyright 2021 [employer]. All rights reserved. The codes documented in this report are preliminary and upon composition roll maker and cutter review may be revised to meet current compliance requirements. Bob Dueñas DO 05/13/2025 2:40:43 PM This report has been signed electronically. Number of Addenda: 0 Note Initiated On: 05/13/2025 1:58 PM 05/13/25 1440 Date _ Bob Askew Signature: Date (if indicated) CC: RONEY DULITE MACHINE BLUERAnnaC Yenny Kauffman; Bob Dueñas DO ~ Date Dictated: 05/13/25 1358 Date Transcribed: Radio Frequency Design Engineer: RF Signed [facility]08-12-2025 Procedure note [facility] Medical Records Department [address] [place] [address] Provation Physician Letter MR#: [id number] Acct: [id number] Name: BRANDI SAUCEDA Rep #:[id number] : 1960 64 From: Bob Dueñas DO PCP: RONEY Reyes, DULITE MACHINE BLUERBryan Statu s:REG [facility] 05/13/2025 Yenny Amanda, Cabinet And Trim Installer-c Re : Upper GI endoscopy procedure for Brandi Komal Dear Jamari This procedure was performed on [...] has been signed electronically. 05/13/25 1440 Date _ Bob Askew Signature: Date (if indicated) CC: RONEY Kauffman; DO Maddy Raygoza Date Dictated: 05/13/25 1358 Date Transcribed: Radio Frequency Design Engineer: RF Signed [facility]08-12-2025 Consult note [facility] Medical Records Department [address] [place] [address] Anesthesia Postop Eval I 05/13/25 1437 MR#: [id number] Acct: [id number] Name: BRANDI SAUCEDA Rep #: [id number] : 1960 64 From: Tevin Cisse PCP: RONEY Reyes NP-C Statu s:REG SDC Y Race: C Location: [place] [address] Anesthesia: Postop Eval I Current Vital Signs [...] Postop Eval 1 completed: Yes 05/13/25 1437 > Date _ Tevin Samuels Signature: Date CC: ~ Signed [facility]08-12-2025 Consult note [facility] Medical Records Department [address] [place] [address] Pre-Anesthesia Evaluation 05/13/25 1359 MR#: [id number] Acct: [id number] Name: BRANDI SAUCEDA Rep #:[id number] : 1960 64 From: Dylan Hensley MD PCP: Yenny Kauffman, [facility], DULITE MACHINE BLUER-C Statu s:REG SDC Y Race: C Location: [place] [address] ASA Classification* ASA Classification ASA Classification: 3 [...] Procedure(s): Colonoscopy,EGD Anesthesia History Anesthesia History - billet header: Anesthesia History - billet header Hx Hospitalization No 05/08/25 12:16 Any Problems [...] finished prep at 10:30 AM) Meds taken Bette with sips of water?: Yes PONV PONV - billet header: PONV - billet header Female Yes 05/08/25 12:16 HX of Motion [...] 05/13/25 13:44 Respiratory Assessment Respiratory Assessment - billet header: Respiratory Tract Infection Hx - billet header Hx Respiratory Tract Infection No 05/08/25 12:16 STOP Sleep Apnea STOP Sleep Apnea - billet header: STOP Sleep Apnea - billet header Hx Hypertension Yes: ON MEDS 05/08/25 12:16 [...] than talking or can be heard through closeddoors)? 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 05/13/25 1405 ely COREY> Date _ Dylan Samuels Signature: Date CC: ~ Signed [facility]08-12-2025 History and physical note [facility] Medical Records Department [address] [place] [address] History & Physical Exam 05/13/25 1349 MR#: [id number] Acct: [id number] Name: BRANDI SAUCEDA Rep #:[id number] : 1960 64 From: Bob Friend PCP: Yenny Kauffman, RONEY, DULITE MACHINE BLUER-C Statu s:REG [facility] Location: [place] [address] HPI - General General Date of Admission: 05/13/25 Date of Service: 05/13/25 Chief Complaint: abdominal/chest/epigastric pain HPI Narrative BRANDI SAUCEDA, is a 64 F who presents from pulmonology for upper abdominal/chest/epigastric pain/burning with sensation of food sticking and morning nausea with intermittent heartburn; PPI startedwith resolution of emesis. No health insurance making EGD cost prohibitive. Continue protonix, start sucralfate. OV 11. PCP stopped Carafate. While taking Carafate she has a resolution of symptoms, with stop of Carafate she is now having nausea and upset stomach. PPI continues. Denies marijuana, cigarette and alcohol use. OV 01.28.24 pt reports daily N/V since her PCP took her off carafate. Pt reports that she occasionally has trouble swallowing. Pt reports that she has 3-4 formedbm per day. Pt continues taking pantoprazole.Continue pantoprazole 40 mg, ok to take it QAM to save costs, but can increase back to BID if needed. Add sucralfate bid for a month, [facility] f/u 2 mos 6..25 OV She reports being on pantoprazole daily and sucralfate but it's not working. She reports daily nausea, uses motion sickness medicine from OTC, and epigastric pain from heartburn. She denies emesis, difficulty swallowing, reflux, excess gas, constipation, diarrhea, hematochezia, and melena. She has difficulty chewing due to being edentulous. She states that she had seen a doctor at [facility] that recommended she have both an EGD and colonoscopy competed this year. [facility] Medical History Edentulism, complete Dietary restriction Non-smoker [...] ground emesis, constipation, cramping, diarrhea, dyspepsia, dysphagia, earlysatiety, excessive flatus, fecalincontinence, heartburn, hematemesis, hematochezia, hemorrhoids, [...] presence: without esophagitis Qualified Code(s): K21.9 - Gastro- esophageal reflux disease without esophagitis (2) Epigastric pain: [...] office FU 2wks after endoscopies 05/13/25 1352 Cosigner Signature (if applicable): CC: RONEY DULITE MACHINE BLUER-C Yenny Kauffman; Bob Dueñas, ~ Signed [facility]08-12-2025 [facility] Medical Records Department [address] [place] [address] History Physical Exam 05/13/25 1349 MR#: [id number] Acct: [id number] Name: BRANDI SAUCEDA Rep #: [id number] : 1960 64 From: Bob Dueñas DO PCP: RONEY Reyes, DULITE MACHINE BLUER-C Status:REG [facility] Location: [place] [address] HPI - General General Date of Admission: 05/13/25 Date of Service: 05/13/25 Chief Complaint: abdominal/chest/epigastric pain HPI Narrative BRANDI SAUCEDA, is a 64 F who presents from pulmonology for upper abdominal/chest/epigastric pain/burning with sensation of food sticking and morning nausea with intermittent heartburn; PPI started with resolution of emesis. No health insurance making EGD cost prohibitive. Continue protonix, start sucralfate. OV 11..23 PCP stopped Carafate. While taking Carafate she [...] bid for a month, [facility] f/u 2 mos 6..25 OV She reports being on pantoprazole daily and sucralfate but it's not working. She reports daily nausea, uses motion sickness medicine from OTC, and epigastric pain from heartburn. She denies emesis, difficulty swallowing, reflux, excess gas, constipation, diarrhea, hematochezia, and melena. She has difficulty chewing due to being edentulous. She states that she had seen a doctor at [facility] that recommended she have both an EGD and colonoscopy competed this year. [facility] Medical History Edentulism, complete Dietary restriction Non-smoker [...] mg tablet 10 mg PO DAILY@1700 ALLERGIES 01/0105/12/25 History ascorbic acid (vitamin C) 500 mg [...] History Smoking Status: Former (more content not included)...[facility] 05-09-2025 Evaluation note* Diagnosis Onset Date Resolution Status Admit Date Chronic bronchitis chronic May 09, 2025 1:01pm SOURAV (obstructive sleep apnea) suspec thiago May 09, 2025 1:01pm Nausea acute May 13 025 1:16pm Epigastric pain chronic May 132024 1:16pm GERD (gastroesophageal reflu x disease) chronic May 13 1:16pm Esophageal dysmotility acute Au 2024 1:16pm Epigastric pain chronic [place] 28 th, 2025 1:16pm GERD (gastroesophageal reflu x disease) chronic May 29 1:16pm [facility] Work Phone: 1(709) 530-180707-10-2025 Nuclear medicine Diagnostic study note [facility] Imaging Services [address] [place] [address] Gastric Emptying Study MR#: [id number] Acct: [id number] Name: BRANDI SAUCEDA Rep #: [id number] : 1960 F 64 From: Miguel Angel Lorenzo MD PCP: Yenny Kauffman, RONEY, VADIM-C Status: REG CLI Study:Gastric Emptying Study Date of Exam: 04/10/25 Exam# [id number] Ordering Dr: Andre Gutierrez PROCEDURE: GASTRIC EMPTYING STUDY 04/10/2025 REASON FOR EXAM: FREQUENT NAUSEA TECHNIQUE: The patient ingested a semi solid meal of oatmeal. There was no vomiting postprandially. Anterior and posterior planar images of the upper abdomen were obtained for 60 minutes. Regions of interest were drawn, and a geometric mean was used to calculate a ggng-fheznegn-nelfo. Medications taken in the past 24 hours [...] semi solid phase gastric emptying. Reading Location: [address] CC: FORREST Gutierrez; [facility] DULITE MACHINE BLUERBryan Kauffman ~ Radio Frequency Design Engineer: Signed [facility]05-09-2025 Evaluation note* Diagnosis Onset Date Resolution Status Admit Date Chronic bronchitis chronic January 1:46pm SOURAV (obstructive sleep apnea) suspec thiago February 07, 2025 1:46pm [facility] Work Phone: 1(805) 360-243505-09-2025 Evaluation note* Diagnosis Onset Date Resolution Status Admit Date Chronic bronchitis chronic January 1:46pm SOURAV (obstructive sleep apnea) suspec thiago February 07, 2025 1:46pm Nausea acute March 25 2:10pm Epigastric pain chronic March 2:10pm GERD (gastroesophageal reflu x disease) chronic March 25, 2025 2:10pm [facility] Work Phone: 1(412) 925-146105-09-2025 Evaluation note* Diagnosis Onset Date Resolution Status Admit Date Chronic bronchitis chronic January 1:46pm SOURAV (obstructive sleep apnea) suspec [facility] February 07, 2025 1:46pm Nausea acute March 25 2:10pm Epigastric pain chronic March 2:10pm GERD (gastroesophageal reflu x disease) chronic March 25, 2025 2:10pm Chronic bronchitis chronic May 09, 2025 1:01pm SOURAV (obstructive sleep apnea) suspec [facility] May 09, 2025 1:01pm [facility] Work Phone: 1(213) 591-811305-09-2025 Evaluation note* Diagnosis Onset Date Resolution Status Admit Date Chronic bronchitis chronic January 1:46pm SOURAV (obstructive sleep apnea) suspec thiago February 07, 2025 1:46pm Nausea acute March 25 2:10pm Epigastric pain chronic March 2:10pm GERD (gastroesophageal reflu x disease) chronic March 25, 2025 2:10pm Chronic bronchitis chronic May 09, 2025 1:01pm SOURAV (obstructive sleep apnea) suspec [facility] May 09, 2025 1:01pm Nausea acute May 13, 2 025 1:16pm Epigastric pain chronic May 132024 1:16pm GERD (gastroesophageal reflu x disease) chronic May 13 1:16pm [facility] Work Phone: 1(785) 320-384706-11-2024 Note ORIGINAL FROM: DANIELLE [address] [address] PROCEDURE FOR: BRANDI SAUCEDA [address] [place] [address] Home: PID#: [id number] Exam#: [id number] : 1960 Age: 63 TO: YENNY KAUFFMAN NP [facility] [address] [place], [place] [address] Fax: NO FAX EXAMINATION: SCREENING DIGITAL BILATERAL [...] Continued screening with annual mammograms is recommended. Tyrer Cuzick risk calculations, generated with the history provided, [...] addition to annual mammographic screening per the [employer]. BIRADS: MAMMOGRAM BI-RADS: 2: Benign finding RECALL: 1 year screening RECALL TYPE: mammo LETTER SENT: Normal BI-RADS 1 and 2 Interpreted by: Kitty Cruz Preliminary Report By: Kitty Cruz Electronically signed By Kitty Cruz Dictated Date: 03/12/2024 3:25:08 PM Prelim Date: 03/12/2024 3:40:01 PM Sign Date: 03/12/2024 3:40:01 PM Ordering Provider: YENNY KAUFFMAN Chimney Mechanic: WILFREDO ADAMS RT(R) RDMS letter sent: Normal BI-RADS 1 and 2 Mammogram BI-RADS: 2 [facility]03-22-2024 Instructions* Patient Instructions* Corby Power - 12/22/2023 11:04 AM EDT Your wound appears to be healing nicely Continue with soaking of the toes daily for the next 2-3 weeks or however long it takes for the toeto be completely healed Continue with topical antibiotic Corby Power DPM [facility]2024 NoteHNO ID: [id number] Author: CORBY POWER, ? Service: ? Author [...] (H) 4.3 - 5.6 % Final Comment: [employer] guidelines indicate that patients with [...] is very pleased with outcome Corby Power [facility]03-22-2024 History of Present illness Narrative* Corby [...] (H) 4.3 - 5.6 % Final Comment: [employer] guidelines indicate that patients with [...] Has been soaking them. documented in this encounterWayne Hospital03-22-2024 NoteHNO ID: [id number] Author: JUANY DAY RN Service: ? Author [...] still some tenderness. Has been soaking them. [facility]03-11-2024 Miscellaneous Notes* Telephone Encounter - Indigo Smith LPN - 12/11/2023 1:40 PM EDT Images from the original note were not included. Corby Power [facility] Podiatry Pool 38 minutes ago (1:01 PM) I called patient. She is doing well. She is ok to return to work as scheduled Continue with local wound care Corby Power DPM * Telephone Encounter - Jeovanny Powell MA - 12/11/2023 12:13 PM EDT Pt calling to see when she can return to work. She is scheduled Monday. She works at [employer] and is on her feet the whole time. She was unsure of her restrictions. If she is able to return, she will need a note. Please review and advise. Jeovanny Powell MA documented in this [facility]Wayne [facility]03-04-2024 Instructions* Patient Instructions* Ramon Murguia APRN.DOUGH BRAKER - 12/04/2023 2:14 PM EST PATIENT PREOPERATIVE INSTRUCTIONS Corby Power DPM has scheduled you for your procedure at this surgery center: [facility]: [phone] -- [address] [facility] [address]. Please read below carefully for your personalized [...] Procedures: - YOU MUST HAVE A RESPONSIBLE BAND MANAGER TAKE YOU HOME. A JOB DEVELOPMENT SPECIALIST OR THERMAL TECHNICIAN CANNOT BE MADE A RESPONSIBLE BAND MANAGER. - We recommend that a responsible person stays with you overnight to take care of you. - You cannot stay in a hotel alone after outpatient surgery. You will not be permitted to have yoursurgery, if you do not have someone to take care of you. If you already have an Advance Directive, please fax a copy to [phone] or email to for it to be [...] day. Ramon Murguia APRN.CNP documented in this encounterWayne [facility]03-04-2024 History and physical note * Ramon [...] for: dysuria, hematuria, nephrolithiasis and renal failure. DRY ROASTER: Negative for abnormal vaginal bleeding, abnormal vaginal [...] or any previous visit (from the past 28926 hour(s)). Instructions Given to Patient: Instructions located in the after visit summary. Patient given verbal and written preop instructions and voices comprehension and compliance. SIGNATURE: Ramon Murguia APRN.CNP PATIENT NAME: Brandi Sauceda DATE: December 04, 2023 TIME: 2:07 PM PAGER/CONTACT #: documented in this encounterWayne [facility] Miscellaneous Notes* Telephone Encounter - Indigo Smith LPN - 11/24/2023 2:55 PM EST Patient presented to office on 11/13/2023 to discuss surgery and sign consent. Patient elected to schedule surgery for chemical matrixectomy, toes 1-5 b/l on 12/08/2023 at [facility]. Patient was provided with surgical packet including electronic and paper copy of surgical confirmation letter, and instruction on where to go at [facility]. All post op were scheduled with in office as well. Patient verbalized understanding of all instructions. Surgery scheduled in [facility]. Indigo Smith LPN * Telephone Encounter [...] of surgery:chemical matrixectomy, toes 1-5 b/l CPT code:15458 Diagnosis: onychomycosis* Length of surgery:120 min Limousine Rental Clerk needed: none* Anesthesia: mac Special equipment: 30 phenol sticks documented in this encounterWayne [facility]02-12-2024 NoteHNO ID: [id number] Author: CORBY POWER, ? Service: ? Author [...] (H) 4.3 - 5.6 % Final Comment: [place] [employer] guidelines indicate that patients with [...] unchanged from previous visit. Non-Invasive Vascular Laboratory [facility] Lower Extremity Arterial Physiology Study [...] brachial index: 1.25 Right (more content not included)...[facility]02-12-2024 History of Present illness Narrative* Corby Power [...] (H) 4.3 - 5.6 % Final Comment: [place] [employer] guidelines indicate that patients with [...] unchanged from previous visit. Non-Invasive Vascular Laboratory [facility] Lower Extremity Arterial Physiology Study [...] Normal at rest. Technologist: Fariha Cunningham RVT, [facility] Ordering physician: CORBY POWER Interpreting physician: MILLY [...] the nails in office. documented in this encounterWayne Hospital02-12-2024 NoteHNO ID: [id number] Author: JUANY DAY RN Service: ? Author [...] not normally remove all the nails in office.[facility]11-14-2023 Instructions* Patient Instructions* Corby Power - 08/15/2023 4:19 PM EST Powerstep Original Full length. Can purchase at [employer] Runner here in [place], [employer] in [place] or [place]. Also can find in [place] in [facility]. Powersteps can also be purchased online, starting [...] everything fits well together documented in this encounterWayne Hospital11-14-2023 NoteHNO ID: [id number] Author: Corby Power Service: ? Author Type: [...] ASSESSMENT: (B35.1) Onychomycosis (prima (more content not included)...[facility]11-14-2023 History of Present illness Narrative* Corby Power [...] . Corby Power DPM Podiatry [address] [facility] [address] Dept: [phone] Dept * Juany Day RN - 08/15/2023 [...] are thick and discolored. documented in this encounterWayne Hospital11-14-2023 NoteHNO ID: [id number] Author: Juany Day RN Service: ? Author [...] feet. States that nails are thick and discolored.[facility] 05-13-2023 Hospital Discharge instructions Additional Instructions 1. [...] may take Tylenol every 4-6 hours for pain.[facility] Work Phone: 1(717) 579-404704-22-[address] Sanchez [facility] January 21, 2023 1:18pm Note Date/Time January 21, 2023 8:0 0am [facility] Medical Records Department [address] [place] [address] Instructions for Home/Discharge Instructions 01/21/23 0759 MR#: [id number] Acct: [id number] Name: BRANDI SAUCEDA Rep #:[id number] : 1960 62 From: Michael Langston PCP: [facility] St atus:ADM LAWANDA Discharge Instructions Diet Discharge [...] Attending Provider: Michael Sanchez Primary Care Provider: [facility] Instructions Additional Instructions / Restrictions: Patient already [...] for possible GERD/PUD/atypical noncardiac chest pain) [facility] [Primary Care Provider] - Disposition Disposition (needs filled in before D/C Order can be placed): Home, Self Care 01/21/23 1318<Electronically signed by Michael Sanchez MD>Michael Sanchez MD CC: [facility] ~ Signed [facility] Work Phone: 1(628) 722-924604-22-[address] Sanchez [facility] January 21, 2023 1:20pm Note Date/Time January 21, 2023 8:0 0am [facility] Medical Records Department [address] [place] [address] Discharge Summary 01/21/23 1320 MR#: [id number] Acct: [id number] Name: BRANDI SAUCEDA Rep #:[id number] : 1960 62 From: Michael Langston PCP: [facility] St atus:ADM LAWANDA Location: [place] [address] Providers Date of Admission: 01/20/23 Date of Discharge: 01/21/23 Primary Care Physician: [facility] Reason For Visit: DIZZINESS AND CP Diagnosis [...] I discussed with the ED physician and x ray technician.? Patient also had a stress test by outside x ray technician a year ago and was normal.?? Stress [...] directive.? She does not endanger power of family law attorney for health.? Next of kin is [...] % (Auto) 60.1, Lymph % (Auto) 31.1, Concho % (Auto) 5.7, Eos % (Auto) 2.3, [...] Clarity Clear, Urine pH 7.0, Ur Specific [place] 1.015, Urine Protein Negative, Urine Glucose (UA) [...] 43.3 L, Lymph % (Auto) 45.0 H, Concho % (Auto) 6.2, Eos % (Auto) 4.5, [...] Attending Provider: Michael Sanchez [facility] Instructions Additional Instructions / Restrictions: Patient [...] for possible GERD/PUD/atypical noncardiac chest pain) [facility] [Primary Care Provider] - Disposition Disposition (needs filled in before D/C Order can be placed): Home, Self Care Charges/Coding Visit Charges Inpatient E&M: 81535 Disch Hosp >30min 01/21/23 1320 <Electronically signed by Michael Sanchez MD> Cosigner Signature (if applicable): CC: Dr. Michael Sanchez MD; [facility]~ Signed [facility] Work Phone: 1(761) 256-616104-21-[address] Cox [facility] January 20, 2023 4:38pm Note Date/Time January 20, 2023 12: 36pm [facility] Medical Records Department [address] [place] [address] Emergency Department Summary 01/20/23 MR#: [id number] Acct: [id number] Name: BRANDI SAUCEDA Rep #:[id number] : 1960 62 From: Ag Pollock PCP: [facility] St atus:ADM LAWANDA Location: [address] History of Present Illness Chief Complaint: [...] Ox 93 Oxygen Delivery Method Room Air [facility] Narrative Medical decision making narrative: Chief Complaint: [...] % (Auto) 60.1 Lymph % (Auto) 31.1 Concho % (Auto) 5.7 Eos % (Auto) 2.3 [...] Clarity Clear Urine pH 7.0 Ur Specific [place] 1.015 Urine Protein Negative Urine Glucose (UA) [...] (Auto) Neut % (Auto) Lymph % (Auto) Concho % (Auto) Eos % (Auto) Baso % [...] Color Urine Clarity Urine pH Ur Specific [place] Urine Protein Urine Glucose (UA) Urine Ketones [...] (NSTEMI), Dizziness Disposition Disposition: Acute Care Hospital [facility] Discharge Date/Time: 01/20/23 15:40 What to do if you have Problems For any increased pain, shortness of breath, bleeding, nausea or vomiting, chestpain, or any unexpected problems, contact your Primary Care Provider. Call [facility] ([phone]) or report to the closest Emergency Room. Call 911 if necessary. 01/20/23 1638 <Electronically signed by Ag Cox DO> Cosigner Signature (if applicable): CC: [facility] ~ Signed [facility] Work Phone: 1(603) 949-609404-21-2023 History and physical note Author Dr. Sanchez [facility] January 20, 2023 4:00pm Note Date/Time January 20, 2023 4:0 0pm [facility] Medical Records Department [address] [place] [address] H&P Exam - Hospitalist 01/20/23 1502 MR#: [id number] Acct: [id number] Name: BRANDI SAUCEDA ASHLEY Rep #:[id number] : 1960 62 From: Michael Langston PCP: [facility] St atus:ADM LAWANDA Location: [place] [address] HPI - General General Date of Admission: [...] EKG of September 2022. Troponins mildly elevated. [facility] Medical History COPD (chronic obstructive pulmonary disease) [...] % (Auto) 60.1, Lymph % (Auto) 31.1, Concho % (Auto) 5.7, Eos % (Auto) 2.3, [...] Clarity Clear, Urine pH 7.0, Ur Specific [place] 1.015, Urine Protein Negative, Urine Glucose (UA) [...] I discussed with the ED physician and x ray technician. Third troponin ordered. Patient also had a stress test by outside x ray technician a year ago and was normal. Plan [...] directive. She does not endanger power of family law attorney for health. Next of kin is her . After discussion of benefits/risks procedures involved with full code, DNR CC arrest and DNR CC, the patient is not yet decided therefore full code. Patient does want artificial life support including intubation, tube feed, ventilator and/chest compression, central venous catheter, vasopressor and DC shock if needed Total time spent in [id number] encounter in discussion of advanced directive 17 minutes. Laboratory Results 01/20/23 12:35: WBC 6.9, RBC 5.32, Hgb 14.7, Hct 45.3, MCV 85.2, MCH 27.6, MCHC 32.5, RDW Std Deviation 43.4, RDW Coeff of Kameron 14.0, Plt Count 208, MPV 10.4, Immature Gran % (Auto) 0.100, Neut % (Auto) 60.1, Lymph % (Auto) 31.1, Concho % (Auto) 5.7, Eos % (Auto) 2.3, [...] Clarity Clear, Urine pH 7.0, Ur Specific [place] 1.015, Urine Protein Negative, Urine Glucose (UA) [...] the chest. Charges/Coding Visit Charges Inpatient E&M: 54341 Init Hosp L3 Procedures Hospitalists Procedures: 15089 Advncd Care Plan 30 Min 01/20/23 1600 <Electronically signed by Michael Sanchez MD> Cosigner Signature (if applicable): CC: Dr. Michael Sanchez MD; [facility]~ Signed [facility] Work Phone: 1(617) 693-424711-10-2021 History of Present illness Narrative* Dixie Hansen RT(R) - 08/11/2021 1:50 PM EST Radiology [...] 11, 2021 2:08 PM [facility] Author Dylan Hensley [facility] Note Date/Time May 13, 2025 2: 05pm [facility] Medical Records Department [address] [place] [address] Pre-Anesthesia Evaluation 05/13/25 1359 MR#: [id number] Acct: [id number] Name: BRANDI SAUCEDA Rep #:[id number] : 1960 64 From: Dylan Hensley MD PCP: Yenny Kauffman, C, DULITE MACHINE BLUER-C Statu s:REG SDC Y Race: C Location: [place] [address] ASA Classification* ASA Classification ASA Classification: 3 [...] Procedure(s): Colonoscopy,EGD Anesthesia History Anesthesia History - billet header: Anesthesia History - billet header Hx Hospitalization No 05/08/25 12:16 Any Problems [...] sips of water?: Yes PONV PONV - billet header: PONV - billet header Female Yes 05/08/25 12:16 HX of Motion [...] 05/13/25 13:44 Respiratory Assessment Respiratory Assessment - billet header: Respiratory Tract Infection Hx - billet header Hx Respiratory Tract Infection No 05/08/25 12:16 STOP Sleep Apnea STOP Sleep Apnea - billet header: STOP Sleep Apnea - billet header Hx Hypertension Yes: ON MEDS 05/08/25 12:16 [...] Tobacco Use History Tobacco Use History - billet header: Tobacco Use History - billet header Tobacco Use Smoking Status Former smoker 05/09/25 13:08 Hx Tobacco Use No 05/08/25 12:16 Years Smoking Packs Smoked per Day Smoking Cessation Date was No - quit smoking greater 05/08/25 12:16 within the last 15 years than 15 years ago Hx Smoking Cessation Date 10/02/07 05/08/25 12:16 Hx Smoking Cessation No 05/08/25 12:16 Counseling Hematologic Medial History Hematologic Hx - billet header: 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 Specify any problems Hx of Preganancy in last 3 No 05/08/25 12:16 Months Nurse Filling Out Transfusion CHARIS 05/08/25 12:16 & Questions: Date: 05/08/25 05/08/25 12:16 Time: 12:17 05/08/25 12:16 Patient unable to answer at this time (ie. confused, unrespo /Reproduction History /Reproductive History - billet header: /Reproductive Hx- billet header Hx Now No 05/08/25 12:16 Gestational Age [...] MD Cosigner Signature: Date CC: ~ Signed [facility] Work Phone: Consult note Author Tevin Cisse [facility] Note Date/Time May 13, 2025 2: 37pm [facility] Medical Records Department [address] [place] [address] Anesthesia Postop Eval I 05/13/251436 MR#: [id number] Acct: [id number] Name: BRANDI SAUCEDA ASHLEY Rep #:[id number] : 1960 64 From: Tevin Cisse PCP: RONEY Reyes, DULITE MACHINE BLUER-C Statu s:REG SD Y Race: C Location: [place] [address] Anesthesia: Postop Eval I Current Vital Signs [...] Anesthesia document: Postop Eval 1 completed: Yes 05/13/251436 <Electronically signed by Tevin Cisse > Date _ Tevin Thompsonigner Signature: Date CC: ~ Signed [facility] Work Phone: Consult note Author Wilma Durham [facility] Note Date/Time May 13, 2025 3: 23pm [facility] Medical Records Department [address] [place] [address] Anesthesia Postop Eval II 05/13/25 1520 MR#: [id number] Acct: [id number] Name: BRANDI SAUCEDA ASHLEY Rep #:[id number] : 1960 64 From: Wilma pierre CRNA PCP: RONEY Reyes, DULITE MACHINE BLUER-C Statu s:REG SDC Y Race: C Location: [place] [address] Anesthesia Postop Eval I Sum Postop Eval [...] CRNA Cosigner Signature: Date CC: ~ Signed [facility] Work Phone: Discharge summary Author Natan Gusman [facility] May 13, 2023 10:51am Note Date/Time May 13, 2023 10 :05am [facility] Medical Records Department [address] [facility] [place] [address] Emergency Department Summary 05/13/23 MR#: [id number] Acct: [id number] Name: BRANDI SAUCEDA ASHLEY Rep #:[id number] : 1960 62 From: Natan Gusman MD PCP: [facility] St atus:REG ER Location: ED HPI HPI [...] Amnesia Narrative Narrative: Patient is a 62-year-old bomms-jagy-sowsckar woman who presents because of injury that [...] similar symptoms: No Recent Illness/Hospitalization: No PFSH [facility] Medical History Chronic bronchitis COPD (chronic obstructive [...] BID Qty: 60 0RF [facility]: [facility] Referrals: [facility] [Group of Physicians] - 3-5 Days [facility] - Activity Restrictions/Additional Instructions: 1. You may hurt in more places and you presently do over the next several days 2. Your pain may increase over the next 24 to 48 hours 3. Apply ice to areas of discomfort 6-10 times a day for the next 3 to 5 days 4. Follow-up with [facility] care 5. You may take Tylenol every 4-6 hours for pain. Disposition Disposition: Home, Self Care What to do if you have Problems For any increased pain, shortness of breath, bleeding, nausea or vomiting, chestpain, or any unexpected problems, contact your Primary Care Provider. Call [facility] ([phone]) or report to the closest Emergency Room. Call 911 if necessary. 05/13/23 1051 <Electronically signed by Natan Gusman MD> Cosigner Signature (if applicable): CC: [facility] ~ Signed [facility] Work Phone: Evaluation + Plan note No data available for this section [facility] Evaluation noteNo assessment information available [facility] Work Phone: evaluation note* Diagnosis Onset Date Resolution Status Chest pain acute Non-ST elevation RI (NSTEMI) acute Vomiting and diarrhea acute [facility] Work Phone: Evaluation note* Diagnosis Onset Date Resolution Status Dizziness acute Non-ST elevation RI (NSTEMI) acute [facility] Work Phone: Evaluation note* Diagnosis Onset Date Resolution Status Chest pain, atypical acute Dizziness acute Non-ST elevation RI (NSTEMI) acute [facility] Work Phone: evaluation note* Diagnosis Onset Date Resolution Status Chest pain, atypical resolve d Dizziness resolved SOURAV (obstructive sleep apnea) acute Chronic bronchitis chronic [facility] Work Phone: evaluation note* Diagnosis Onset Date Resolution Status Chest pain, atypical resolve d Dizziness resolved SOURAV (obstructive sleep apnea) acute Chronic bronchitis chronic Atypical chest pain chronic Epigastric pain chronic GERD (gastroesophageal reflux disease) chronic [facility] Work Phone: Evaluation note* Diagnosis Onychomycosis- Primary Dermatophytosis of nail Diminished pulses in lower extremity Other symptoms involving cardiovascular system Pain in toe of left foot Pain in limb Pain in toe of right foot Pain in limb [facility] Diagnosis Onychomycosis- Primary Dermatophytosis of nail [facility] Diagnosis Preoperative examination- Primary Preoperative examination, [...] Dermatophytosis of nail [facility] Diagnosis Open wound of toe, initial encounter- Primary documented in this encounter [facility] Author Bob Dueñas [facility] Note Date/Time May 13, 2025 1: 52pm [facility] Medical Records Department [address] [place] [address] [place] [address] History & Physical Exam 05/13/25 1349 MR#: [id number] Acct: [id number] Name: BRANDI SAUCEDA Rep #:[id number] : 1960 64 From: Bob Dueñas DO PCP: Yenny Kauffman, Cecil, DULITE MACHINE BLUER-C Statu s:REG [facility] Location: [place] [address] HPI - General General Date of Admission: [...] bid for a month, [facility] f/u 2 mos 6.24.25 OV She reports being on pantoprazole daily and sucralfate but it's not working. She reports daily nausea, uses motion sickness medicine from OTC, and epigastric pain from heartburn. She denies emesis, difficulty swallowing, reflux, excess gas, constipation, diarrhea, hematochezia, and melena. She has difficulty chewing due to being edentulous. She states that she had seen a doctor at [facility] that recommended she have both an EGD and colonoscopy competed this year. [facility] Medical History Edentulism, complete Dietary restriction Non-smoker [...] Dueñas DO> Cosigner Signature (if applicable): CC: [facility] DULITE MACHINE BLUER-C Yenny Kauffman; Bob Dueñas DO~ Signed [facility] Work Phone: Hospital Discharge instructions No data available for this section [facility] Hospital Discharge instructionsAdditional Instructions Follow-up with your PCP and return for any other concerns or worsening symptoms. [facility] Work Phone: Hospital Discharge instructionsAdditional Instructions Take all the antibiotics as directed for the next week. Anusol suppositories twice a day. Follow-up with gastroenterology. Return to the emergency department with increased bleeding, fever, increased abdominal pain, new or worsening symptoms.[facility] Work Phone: Progress note No data available for this section [facility] Reason for referral (narrative)* Outpatient Procedure (Routine) - Pending Review Specialty Diagnoses / Procedures Referred By Johnnie pulido [facility] Diagnoses Diminished pulses in lower extremity Onychomycosis Procedures PVR ANK PRESS MINESH VAS LAB NON-INVAS PHYSIOLOGIC STD EXTREMITY ART 2 LEVEL [employer] [address] [place] [address] [facility] [place] [address] [place] [address] Referral ID Status Reason Start Date Expiration Date Visits Requested Visits Authorized [id number] Pending Review Auto-Generat ed Referral 3 08/14/2024 1 1 [facility] (narrative)No reason for referral information availableWBrown [facility] Work Phone: Chief Complaint and Reason [...] Mar 12:38pm Gastroesophageal reflux disease (GERD) J [facility] 2024 2:10pm Reason for Visit Admit Date Chronic bronchitis February 07, 2025 1:46pm SOURAV (obstructive sleep apnea) February 07, 2 025 1:46pm Nausea March 25, 2025 2:10 pm Epigastric pain March 25, 2025 2:10 pm GERD (gastroesophageal reflux disease) J [facility] 2024 2:10pm Chief Complaint Admit Date Pt to follow up per PCP February 07, 2025 1: 46pm G47.33 - Obstructive sleep apnea (adult) (pediatri February 25, 2025 1:00pm SCREENING March 14, 2025 10:5 3am J42 - Unspecified chronic bronchitis Mar 12:38pm Gastroesophageal reflux disease (GERD) J [facility] 2024 2:10pm GERD April 10, 2025 12:4 1pm Foreign body April 13, 2025 11:5 5am Chief Complaint Admit Date Pt to follow up per PCP February 07, 2025 1: 46pm G47.33 - Obstructive sleep apnea (adult) (pediatri February 25, 2025 1:00pm SCREENING March 14, 2025 10:5 3am J42 - Unspecified chronic bronchitis Mar 12:38pm Gastroesophageal reflux disease (GERD) J [facility] 2024 2:10pm GERD April 10, 2025 12:4 [...] Mar 12:38pm Gastroesophageal reflux disease (GERD) J [facility] 2024 2:10pm GERD April 10, 2025 12:4 [...] 2:10 pm GERD (gastroesophageal reflux disease) J [facility] 2024 2:10pm Chronic bronchitis May 09, 2025 1:0 1pm SOURAV (obstructive sleep apnea) May 1:01pm Reason for Visit Admit Date Chronic bronchitis February 07, 2025 1:46pm SOURAV (obstructive sleep apnea) February 07, 2 025 1:46pm Nausea March 25, 2025 2:10 pm Epigastric pain March 25, 2025 2:10 pm GERD (gastroesophageal reflux disease) J [facility] 2024 2:10pm Chronic bronchitis May 09, 2025 [...] Mar 12:38pm Gastroesophageal reflux disease (GERD) J [facility] 2024 2:10pm GERD April 10, 2025 12:4 1pm Foreign body April 13, 2025 11:5 5am localized edema May 02, 2025 12: 46pm 3 M FU May 09, 2025 1:0 1pm Test Result May 29, 2025 1: 16pm Chief Complaint Admit Date GERD April 10, 2025 12:4 1pm Foreign body April 13, 2025 11:5 5am localized edema May 02, 2025 12: 46pm BILATERAL LEG PAIN May 02, 2025 1:0 6pm 3 M FU May 09, 2025 1:0 1pm Test Result May 29, 2025 1: 16pm GI BLEED July 16, 2025 5 :42pm Reason for Visit Admit Date Chronic bronchitis May 09, 2025 1:0 1pm SOURAV (obstructive sleep apnea) May 1:01pm Nausea May 13, 2025 1: 16pm Epigastric pain May 13, 2025 1: 16pm GERD (gastroesophageal reflux disease) A ugust 2024 1:16pm Esophageal dysmotility May 29, 2025 1:16pm Epigastric pain May 29, 2025 1: 16pm GERD (gastroesophageal reflux disease) A ugust 2024 1:16pm Advance Directives Advance Directive Response Recorded Date/ Time Living Will No November 25 021 10:51am Power of Engine House Helper No November 25, 2020 10:51am Advance Directive Response Recorded Date/ Time Living Will No September 07 3:40pm Power of Engine House Helper No September 07, 2022 3:40pm Advance Directive Response Recorded Date/ Time Living Will No January 20, 2023 12:58pm Power of Engine House Helper No January 20 12:58pm Advance Directive Response Recorded Date/ Time Living Will No January 20, 2023 3:51pm Power of Engine House Helper No January 20 3:51pm Advance Directive Response Recorded Date/ Time Living Will No May 13 10:22am Power of Engine House Helper No May 13 023 10:22am Advance Directive Response Recorded Date/ Time Living Will No April 14, 2024 4:53pm Do you have a Healthcare Power of Engine House Helper? No April 14, 2024 4:53pm Advance Directive Response Recorded Date/ Time Living Will No April 14, 2024 4:53pm Do you have a Healthcare Power of Engine House Helper? No April 14, 2024 4:53pm Do you have a Healthcare Power of Engine House Helper? No April 13, 2025 12:19pm Advance Directive Response Recorded Date/ Time Do you have a Healthcare Power of Engine House Helper? No May 08, 2025 12:16pm Living Will No April 14, 2024 4:53pm Do you have a Healthcare Power of Engine House Helper? No April 14, 2024 4:53pm Do you have a Healthcare Power of Engine House Helper? No April 13, 2025 12:19pm Advance Directive Response Recorded Date/ Time Do you have a Healthcare Power of Engine House Helper? No May 08, 2025 12:16pm Do you have a Healthcare Power of Engine House Helper? No April 13, 2025 12:19pm Do you have a Healthcare Power of Engine House Helper? No July 16, 2025 6:37pm Summary Purpose Family History Relationship Condition Age at Onset Recorded Date/T [...] Status: Active Member Role Status Dates Jaye Asher Family Provider Active [facility] Primary Care Provider A ctive Team Status: Active Member Role Status Dates [facility] Primary Care Provider A ctive Dr. Ag Cox DO Emergency Provider Active Dr. Michael Sanchez MD Admit Provider, Attending Provi janey Active Team Status: Active Member Role Status Dates [facility] Primary Care Provider A ctive Dr. Kary Ca MD Attending Provider Active Team Status: Active Member Role Status Dates [facility] Primary Care Provider A ctive Dr. Ag Cox , DO Emergency Provider Active Dr. Michael Sanchez MD Admit Provider, A ttending Provider, Other Provider Active Team Status: Inactive Member Role Status Dates [facility] Primary Care Provider A ctive Dr. Ag Cox , DO Emergency Provider Active Dr. Michael Sanchez MD Admit Provider, Attending Provi janey Active Team Status: Inactive Member Role Status Dates [facility] Primary Care Provider, Referring Provider Active Dr. Philip Guadarrama MD Attending Provider Active Team Status: Active Member Role Status Dates [facility] Primary Care Provider A ctive Dr. Jovani Dee MD Attending Provider, Referring Pro vider Active Team Status: Inactive Member Role Status Dates [facility] Primary Care Provider A ctive Yenny Kauffman DULITE MACHINE BLUER, DULITE MACHINE BLUER-C Attending Provider, Referrin g Provider Active Team Status: Inactive Member Role Status Dates [facility] Primary Care Provider, Referring Provider Active Bri Lindsey DULITE MACHINE BLUER, DULITE MACHINE BLUER-C Attending Provider Active Team Status: Inactive Member Role Status Dates [facility] Primary Care Provider A ctive Dr. Natan Gusman MD Emergency Provider Active Management Scientist Relationship Specialty Start Date End Date Cayla Chowdhury CNP [facility] [place] [address] PCP - General Internal Medicine 09/03/21 Russell Fiore [address] [place] [address] Referring Dermatology 04/24/23 Management Scientist Relationship Specialty Start Date End Date Cayla Chowdhury CNP [address] [place] [address] PCP - General Internal Medicine 09/03/21 Russell Fiore [address] [place] [address] Referring Dermatology 04/24/23 Yenny Kauffman NP [address] [place] [phone] Referring Family Medicine 10/16/23 Management Scientist Relationship Specialty Start Date End Date Yenny Kauffman NP [address] [place] [phone] PCP - General Family Medicine 11/29/23 Russell Fiore [facility] [facility] [place] [address] Referring Dermatology 04/24/23 Yenny Kauffman NP [facility] [place] [phone] Referring Family Medicine 10/16/23 Management Scientist Relationship Specialty Start Date End Date Cayla Chowdhury CNP [facility] [facility] [place] [address] PCP - General Internal Medicine 09/03/21 11/28/23 Yenny Kauffman NP [facility] [place] [phone] PCP - General Family Medicine 11/29/23 Russell Fiore [facility] [facility] [place] [address] Referring Dermatology 04/24/23 Yenny Kauffman NP [facility] [place] [phone] Referring Family Medicine 10/16/23 Management Scientist Relationship Specialty Start Date End Date Yenny Kauffman NP [address] [facility] [place] [phone] PCP - General Family Medicine 11/29/23 Russell Fiore [address] [place], [place] [phone] Referring Dermatology 04/24/23 Yenny Kauffman NP [facility] [place] [address] Referring Family Medicine 10/16/23 Management Scientist Relationship Specialty Start Date End Date Yenny Kauffman NP [facility] [place] [phone] PCP - General Family Medicine 11/29/23 Russell Fiore [facility] [place], [place] [address] Referring Dermatology 04/24/23 Yenny Kauffman NP [facility] [place] [address] Referring Family Medicine 10/16/23 Management Scientist Relationship Specialty Start Date End Date Jaye Sterling, DOUGH BRAKER [address] [place] [phone] PCP - General Family Medicine 12/01/16 09/02/21 Cayla Chowdhury, DOUGH BRAKER [facility] [place], [place] [phone] Referring Internal Medicine 05/28/21 09/02/21 Team Status: Active Member Role Status Dates Yenny AMANDA, DULITE MACHINE BLUER-C Primary Care Provider Activ e Team Status: Inactive Member Role Status Dates Yenny AMANDA, DULITE MACHINE BLUER-C Primary Care Provider Activ e Start: January 14, 2025 End: January 14, 2025 Yenny JULESC, DULITE MACHINE BLUER-C Attending Provider Active Start: January 14, 2025 End: January 14, 2025 Team Status: Inactive Member Role Status Dates Yenny JULESC, DULITE MACHINE BLUER-C Primary Care Provider Activ e Start: February 07, 2025 End: February 07, 2025 Yenny JULESC, DULITE MACHINE BLUER-C Referring Provider Active Start: February 07, 2025 End: February 07, 2025 Dolores Hunt DULITE MACHINE BLUER-C Attending Provider Active Start: February 07, 2025 End: February 07, 2025 Team Status: Inactive Member Role Status Dates Yenny Kauffman DHARAC, DULITE MACHINE BLUER-C Primary Care Provider Activ e Start: February 25, 2025 End: February 25, 2025 Dolores Hunt DULITE MACHINE BLUER-C Attending Provider Active Start: February 25, 2025 End: February 25, 2025 Dolores Hunt DULITE MACHINE BLUER-C Referring Provider Active Start: February 25, 2025 End: February 25, 2025 Team Status: Inactive Member Role Status Dates Yenny Kauffman VSC, DULITE MACHINE BLUER-C Primary Care Provider Activ e Start: March 14, 2025 End: March 14, 2025 Yenny JULESC, DULITE MACHINE BLUER-C Attending Provider Active Start: March 14, 2025 End: March 14, 2025 Yenny AMANDA, DULITE MACHINE BLUER-C Referring Provider Active Start: March 14, 2025 End: March 14, 2025 Team Status: Active Member Role Status Dates Yenny Jamari JULESC, DULITE MACHINE BLUER-C Primary Care Provider Activ e Start: March 21, 2025 Dolores Hunt DULITE MACHINE BLUER-C Attending Provider Active Start: March 21, 2025 Dolores Hunt DULITE MACHINE BLUER-C Referring Provider Active Start: March 21, 2025 Team Status: Inactive Member Role Status Dates Yenny Jamari VSC, DULITE MACHINE BLUER-C Primary Care Provider Activ e Start: March 25, 2025 End: March 25, 2025 Yenny JULESC, DULITE MACHINE BLUER-C Referring Provider Active Start: March 25, 2025 End: March 25, 2025 Jennie Gutierrez DULITE MACHINE BLUER-C Attending Provider Active S tart: March 25, 2025 End: March 25, 2025 Team Status: Active Member Role/Relationship Status Dates Yenny Kauffman VSC, DULITE MACHINE BLUER-C Primary Care Provider Activ e Team Status: Inactive Member Role/Relationship Status Dates Yenny JULESC, DULITE MACHINE BLUER-C Primary Care Provider Activ e Start: January 14, 2025 End: January 14, 2025 Yennyjorge luis Kauffman VSC, DULITE MACHINE BLUER-C Attending Provider Active Start: January 14, 2025 End: January 14, 2025 Team Status: Inactive Member Role/Relationship Status Dates Yenny JULESC, DULITE MACHINE BLUER-C Primary Care Provider Activ e Start: February 07, 2025 End: February 07, 2025 Yennyjorge luis Kauffman VSC, DULITE MACHINE BLUER-C Referring Provider Active Start: February 07, 2025 End: February 07, 2025 Dolores Hunt DULITE MACHINE BLUER-C Attending Provider Active Start: February 07, 2025 End: February 07, 2025 Team Status: Inactive Member Role/Relationship Status Dates Yenny JULESC, DULITE MACHINE BLUER-C Primary Care Provider Activ e Start: February 25, 2025 End: February 25, 2025 Dolores Hunt DULITE MACHINE BLUER-C Attending Provider Active Start: February 25, 2025 End: February 25, 2025 Dolores Hunt DULITE MACHINE BLUER-C Referring Provider Active Start: February 25, 2025 End: February 25, 2025 Team Status: Inactive Member Role/Relationship Status Dates Yenny JULESC, DULITE MACHINE BLUER-C Primary Care Provider Activ e Start: March 14, 2025 End: March 14, 2025 Yennyjorge luis Kauffman VSC, DULITE MACHINE BLUER-C Attending Provider Active Start: March 14, 2025 End: March 14, 2025 Yennyjorge luis Kauffman VSC, DULITE MACHINE BLUER-C Referring Provider Active Start: March 14, 2025 End: March 14, 2025 Team Status: Inactive Member Role/Relationship Status Dates Yenny Kauffman VSC, DULITE MACHINE BLUER-C Primary Care Provider Activ e Start: March 21, 2025 End: March 21, 2025 Dolores Hunt DULITE MACHINE BLUER-C Attending Provider Active Start: March 21, 2025 End: March 21, 2025 Dolores Hunt DULITE MACHINE BLUER-C Referring Provider Active Start: March 21, 2025 End: March 21, 2025 Team Status: Inactive Member Role/Relationship Status Dates Yenny Kauffman VSC, DULITE MACHINE BLUER-C Primary Care Provider Activ e Start: March 25, 2025 End: March 25, 2025 Yennyjorge luis AMANDA, DULITE MACHINE BLUER-C Referring Provider Active Start: March 25, 2025 End: March 25, 2025 Jennie Gutierrez DULITE MACHINE BLUER-C Attending Provider Active S tart: March 25, 2025 End: March 25, 2025 Team Status: Active Member Role/Relationship Status Dates Yenny Jamari JULESC, DULITE MACHINE BLUER-C Primary Care Provider Activ e Start: April 10, 2025 Jennie Gutierrez DULITE MACHINE BLUER-C Attending Provider Active S tart: April 10, 2025 Jennie Gutierrez DULITE MACHINE BLUER-C Referring Provider Active S tart: April 10, 2025 Team Status: Inactive Member Role/Relationship Status Dates Yenny Kauffman VSC, DULITE MACHINE BLUER-C Primary Care Provider Activ e Start: April 13, 2025 End: April 13, 2025 Dr. Alfredo Owen DO Emergency Provider Active Start: April 13, 2025 End: April 13, 2025 Team Status: Inactive Member Role/Relationship Status Dates Yenny JULESC, DULITE MACHINE BLUER-C Primary Care Provider Activ e Start: April 10, 2025 End: April 10, 2025 Jennie Gutierrez DULITE MACHINE BLUER-C Attending Provider Active S tart: April 10, 2025 End: April 10, 2025 Jennie Gutierrez DULITE MACHINE BLUER-C Referring Provider Active S tart: April 10, 2025 End: April 10, 2025 Team Status: Inactive Member Role/Relationship Status Dates Yenny JULESC, DULITE MACHINE BLUER-C Primary Care Provider Activ e Start: April 13, 2025 End: April 13, 2025 Dr. Alfredo Owen DO Attending Provider Active Start: April 13, 2025 End: April 13, 2025 Dr. Alfredo Owen DO Emergency Provider Active Start: April 13, 2025 End: April 13, 2025 Team Status: Active Member Role/Relationship Status Dates Yenny Kauffman VSC, DULITE MACHINE BLUER-C Primary Care Provider Activ e Start: April 15, 2025 Yenny JULESC, DULITE MACHINE BLUER-C Attending Provider Active Start: April 15, 2025 Team Status: Inactive Member Role/Relationship Status Dates Yenny Kauffman VSC, DULITE MACHINE BLUER-C Primary Care Provider Activ e Start: April 15, 2025 End: April 15, 2025 Yenny Kauffman VSC, DULITE MACHINE BLUER-C Attending Provider Active Start: April 15, 2025 End: April 15, 2025 Team Status: Inactive Member Role/Relationship Status Dates Yenny Jamari VSC, DULITE MACHINE BLUER-C Primary Care Provider Activ e Start: May 02, 2025 End: May 02, 2025 Yenny Jamari VSC, DULITE MACHINE BLUER-C Attending Provider Active Start: May 02, 2025 End: May 02, 2025 Yenny Jamari VSC, DULITE MACHINE BLUER-C Referring Provider Active Start: May 02, 2025 End: May 02, 2025 Team Status: Inactive Member Role/Relationship Status Dates Yenny Kauffman VSC, DULITE MACHINE BLUER-C Primary Care Provider Activ e Start: May 09, 2025 End: May 09, 2025 Yenny Jamari VSC, DULITE MACHINE BLUER-C Referring Provider Active Start: May 09, 2025 End: May 09, 2025 Dolores Hunt DULITE MACHINE BLUER-C Attending Provider Active Start: May 09, 2025 End: May 09, 2025 Team Status: Inactive Member Role/Relationship Status Dates Yenny Jamari VSC, DULITE MACHINE BLUER-C Primary Care Provider Activ e Start: May 13, 2025 End: May 13, 2025 Yenny Jamari VSC, DULITE MACHINE BLUER-C Referring Provider Active Start: May 13, 2025 End: May 13, 2025 Dr. Bob Dueñas DO Attending Provider Active Start: May 13, 2025 End: May 13, 2025 Team Status: Active Member Role/Relationship Status Dates Yenny Jamari JULESC, DULITE MACHINE BLUER-C Primary Care Provider Activ e Start: May 13, 2025 Yenny Jamari VSC, DULITE MACHINE BLUER-C Referring Provider Active Start: May 13, 2025 Dr. Bob Dueñas DO Attending Provider Active Start: May 13, 2025 Dr. Bob Dueñas DO Other Provider Active St art: May 13, 2025 Team Status: Inactive Member Role/Relationship Status Dates Yenny Jamari VSC, DULITE MACHINE BLUER-C Primary Care Provider Activ e Start: February 07, 2025 End: February 07, 2025 Yenny Jamari VSC, DULITE MACHINE BLUER-C Referring Provider Active Start: February 07, 2025 End: February 07, 2025 Dolores Hunt DULITE MACHINE BLUER-C Attending Provider Active Start: February 07, 2025 End: February 07, 2025 Team Status: Inactive Member Role/Relationship Status Dates Yenny JULESC, DULITE MACHINE BLUER-C Primary Care Provider Activ e Start: February 25, 2025 End: February 25, 2025 Dolores Hunt DULITE MACHINE BLUER-C Attending Provider Active Start: February 25, 2025 End: February 25, 2025 Dolores Hunt DULITE MACHINE BLUER-C Referring Provider Active Start: February 25, 2025 End: February 25, 2025 Team Status: Inactive Member Role/Relationship Status Dates Yenny Kauffman VSC, DULITE MACHINE BLUER-C Primary Care Provider Activ e Start: March 14, 2025 End: March 14, 2025 Yenny Jamari VSC, DULITE MACHINE BLUER-C Attending Provider Active Start: March 14, 2025 End: March 14, 2025 Yenny Jamari VSC, DULITE MACHINE BLUER-C Referring Provider Active Start: March 14, 2025 End: March 14, 2025 Team Status: Inactive Member Role/Relationship Status Dates Yenny JULESC, DULITE MACHINE BLUER-C Primary Care Provider Activ e Start: March 21, 2025 End: March 21, 2025 Dolores Hunt DULITE MACHINE BLUER-C Attending Provider Active Start: March 21, 2025 End: March 21, 2025 Dolores Hunt DULITE MACHINE BLUER-C Referring Provider Active Start: March 21, 2025 End: March 21, 2025 Team Status: Inactive Member Role/Relationship Status Dates Yenny JULESC, DULITE MACHINE BLUER-C Primary Care Provider Activ e Start: March 25, 2025 End: March 25, 2025 Yennyjorge luis Kauffman DHARAC, DULITE MACHINE BLUER-C Referring Provider Active Start: March 25, 2025 End: March 25, 2025 Jennie Gutierrez DULITE MACHINE BLUER-C Attending Provider Active S tart: March 25, 2025 End: March 25, 2025 Team Status: Inactive Member Role/Relationship Status Dates Yenny JULESC, DULITE MACHINE BLUER-C Primary Care Provider Activ e Start: April 10, 2025 End: April 10, 2025 Jennie Gutierrez NP-C Attending Provider Active S tart: April 10, 2025 End: April 10, 2025 Jennie Gutierrez DULITE MACHINE BLUER-C Referring Provider Active S tart: April 10, 2025 End: April 10, 2025 Team Status: Inactive Member Role/Relationship Status Dates Yenny JULESC, DULITE MACHINE BLUER-C Primary Care Provider Activ e Start: April 13, 2025 End: April 13, 2025 Dr. Alfredo Owen , Attending Provider Active Start: April 13, 2025 End: April 13, 2025 Dr. Alfredo Owen , Emergency Provider Active Start: April 13, 2025 End: April 13, 2025 Team Status: Inactive Member Role/Relationship Status Dates Yenny Jamari VSC, DULITE MACHINE BLUER-C Primary Care Provider Activ e Start: April 15, 2025 End: April 15, 2025 Yenny Kauffman VSC, DULITE MACHINE BLUER-C Attending Provider Active Start: April 15, 2025 End: April 15, 2025 Team Status: Inactive Member Role/Relationship Status Dates Yenny Jamari VSC, DULITE MACHINE BLUER-C Primary Care Provider Activ e Start: May 02, 2025 End: May 02, 2025 Yenny Kauffman VSC, DULITE MACHINE BLUER-C Attending Provider Active Start: May 02, 2025 End: May 02, 2025 Yenny Kauffman VSC, DULITE MACHINE BLUER-C Referring Provider Active Start: May 02, 2025 End: May 02, 2025 Team Status: Inactive Member Role/Relationship Status Dates Yenny Jamari VSC, DULITE MACHINE BLUER-C Primary Care Provider Activ e Start: May 09, 2025 End: May 09, 2025 Yenny Jamari VSC, DULITE MACHINE BLUER-C Referring Provider Active Start: May 09, 2025 End: May 09, 2025 Dolores Hunt , DULITE MACHINE BLUER-C Attending Provider Active Start: May 09, 2025 End: May 09, 2025 Team Status: Inactive Member Role/Relationship Status Dates Yenny Jamari VSC, DULITE MACHINE BLUER-C Primary Care Provider Activ e Start: May 13, 2025 End: May 13, 2025 Yenny Kauffman VSC, DULITE MACHINE BLUER-C Referring Provider Active Start: May 13, 2025 End: May 13, 2025 Dr. Bob Dueñas DO Attending Provider Active Start: May 13, 2025 End: May 13, 2025 Team Status: Active Member Role/Relationship Status Dates Yenny Jamari VSC, DULITE MACHINE BLUER-C Primary Care Provider Activ e Start: May 13, 2025 Yenny Kauffman VSC, DULITE MACHINE BLUER-C Referring Provider Active Start: May 13, 2025 Dr. Bob Dueñas DO Attending Provider Active Start: May 13, 2025 Dr. Bob Dueñas DO Other Provider Active St art: May 13, 2025 Team Status: Inactive Member Role/Relationship Status Dates Yenny AMANDA, DULITE MACHINE BLUER-C Primary Care Provider Activ e Start: May 29, 2025 End: May 29, 2025 Yenny AMANDA, DULITE MACHINE BLUER-C Referring Provider Active Start: May 29, 2025 End: May 29, 2025 JOSEPHINE Lemos Attending Provider Active Start: May 29, 2025 End: May 29, 2025 Team Status: Active Member Role/Relationship Status Dates Yenny AMANDA, DULITE MACHINE BLUER-C Primary care physician Acti ve Team Status: Inactive Member Role/Relationship Status Dates Yenny AMANDA, DULITE MACHINE BLUER-C Primary care physician Acti ve Start: April 10, 2025 End: April 10, 2025 FORREST Villafana Attending physician Active Start: April 10, 2025 End: April 10, 2025 Jennie Gutierrez NP-C Referring Provider Active S tart: April 10, 2025 End: April 10, 2025 Team Status: Inactive Member Role/Relationship Status Dates Yenny AMANDA, DULITE MACHINE BLUER-C Primary care physician Acti ve Start: April 13, 2025 End: April 13, 2025 Dr. Alfredo Owen DO Attending physician Active Start: April 13, 2025 End: April 13, 2025 Dr. Alfredo Owen DO Emergency Depart ent Physician Active Start: April 13, 2025 End: April 13, 2025 Team Status: Inactive Member Role/Relationship Status Dates Yenny AMANDA, DULITE MACHINE BLUER-C Primary care physician Acti ve Start: April 15, 2025 End: April 15, 2025 Yenny AMANDA, DULITE MACHINE BLUER-C Attending physician Active Start: April 15, 2025 End: April 15, 2025 Team Status: Inactive Member Role/Relationship Status Dates Yenny AMANDA, DULITE MACHINE BLUER-C Primary care physician Acti ve Start: May 02, 2025 End: May 02, 2025 Yenny AMANDA, DULITE MACHINE BLUER-C Attending physician Active Start: May 02, 2025 End: May 02, 2025 Yenny AMANDA, DULITE MACHINE BLUER-C Referring Provider Active Start: May 02, 2025 End: May 02, 2025 Team Status: Active Member Role/Relationship Status Dates Dr. Qasim Sanders MD Attending physician Active Start: May 02, 2025 Yenny Kauffman VSC, DULITE MACHINE BLUER-C Referring Provider Active Start: May 02, 2025 Team Status: Inactive Member Role/Relationship Status Dates Yenny JULESC, DULITE MACHINE BLUER-C Primary care physician Acti ve Start: May 09, 2025 End: May 09, 2025 Yenny Kauffman VSC, DULITE MACHINE BLUER-C Referring Provider Active Start: May 09, 2025 End: May 09, 2025 Dolores Hunt , DULITE MACHINE BLUER-C Attending physician Active Start: May 09, 2025 End: May 09, 2025 Team Status: Inactive Member Role/Relationship Status Dates Yenny Kauffman VSC, DULITE MACHINE BLUER-C Primary care physician Acti ve Start: May 13, 2025 End: May 13, 2025 Yennyjorge luis Kauffman VSC, DULITE MACHINE BLUER-C Referring Provider Active Start: May 13, 2025 End: May 13, 2025 Dr. Bob Dueñas DO Attending physician Active Start: May 13, 2025 End: May 13, 2025 Team Status: Active Member Role/Relationship Status Dates Yenny JULESC, DULITE MACHINE BLUER-C Primary care physician Acti ve Start: May 13, 2025 Yenny JULESC, DULITE MACHINE BLUER-C Referring Provider Active Start: May 13, 2025 Dr. Bob Dueñas DO Attending physician Active Start: May 13, 2025 Dr. Bob Dueñas DO Nurse Practitioner Active Start: May 13, 2025 Team Status: Inactive Member Role/Relationship Status Dates Yenny JULESC, DULITE MACHINE BLUER-C Primary care physician Acti ve Start: May 29, 2025 End: May 29, 2025 Yenny JULESC, DULITE MACHINE BLUER-C Referring Provider Active Start: May 29, 2025 End: May 29, 2025 JOSEPHINE Lemos Attending physician Active Start: May 29, 2025 End: May 29, 2025 Team Status: Inactive Member Role/Relationship Status Dates Yenny Jamari JULESC, DULITE MACHINE BLUER-C Primary care physician Acti ve Start: July 16, 2025 End: July 16, 2025 Jeffery Whittaker MD Attending physician Active Sta rt: July 16, 2025 End: July 16, 2025 Jeffery Whittaker MD Emergency Department Physician Active Start: July 16, 2025 End: July 16, 2025 Source Comments (unrecognize d section and content) In the event this informatio n is protected by the Federal Confidentiality of Alcohol and Drug Abuse Patient Records regulations: The Federal rules restrict any use of the information to criminally investigate or prosecute any alcohol or drug abuse patient.[facility] the event this information is protected by the Federal Confidentiality of Alcohol and Drug Abuse Patient Records regulations: The Federal rules restrict any use of the information to criminally investigate or prosecute any alcohol or drug abuse patient.[facility] the event this information is protected by the Federal Confidentiality of Alcohol and Drug Abuse Patient Records regulations: The Federal rules restrict any use of the information to criminally investigate or prosecute any alcohol or drug abuse patient.[facility] the event this information is protected by the Federal Confidentiality of Alcohol and Drug Abuse Patient Records regulations: The Federal rules restrict any use of the information to criminally investigate or prosecute any alcohol or drug abuse patient.[facility] HospitalIn the event this information is protected by the Federal Confidentiality of Alcohol and Drug Abuse Patient Records regulations: The Federal rules restrict any use of the information to criminally investigate or prosecute any alcohol or drug abuse patient.[facility] HospitalIn the event this information is protected by the Federal Confidentiality of Alcohol and Drug Abuse Patient Records regulations: The Federal rules restrict any use of the information to criminally investigate or prosecute any alcohol or drug abuse patient.[facility] Hospital[facility] the event this information is protected by the Federal Confidentiality of Alcohol and Drug Abuse Patient Records regulations: The Federal rules restrict any use of the information to criminally investigate or prosecute any alcohol or drug abuse patient.[facility] Reason for Visit (unrecogniz ed section and content) Reason Comments Established Patient Follow Up Post Op Specialty Diagnoses / Procedures Referred By Contact Referred To Contact Podiatry / [facility] Diagnoses Toenail deformity Procedures Needs HCAP renewal Yenny Kauffman, [facility] [address] [place] [address] [facility] [address] [place] [address] Referral ID Status Reason Start Date Expiration Date Visits Requested Visits Authorized [id number] Authorized Patient Cleared - Qualified [id number] 10/23/2023 01/21/2024 99 99 Reason Comments New Pain Specialty Diagnoses / Procedures Referred By Contac t Referred To Contact [facility] Diagnoses medically necessary Procedures medically [place] [address] Referral ID Status Reason Start Date Expiration Date Visits Requested Visits Authorized [id number] Authorized Financial Clearance Required - Self Pay Patient Cleared - Qualified HCAP/501/FA 3 10/23/2023 99 99 Reason Comments Established Patient Follow Up Nail Check Reason Comments Consult Reason Comments Patient Update Reason Comments Patient Question Specialty Diagnoses / Procedures Referred By Contac t Referred To Contact Radiology / [facility] Diagnoses xray ml Procedures XR GENERAL [address], D[employer] [address] [place] [address] Radio [facility] [address] [place] [address] Referral ID Status Reason Start Date Expiration Date V isits Requested Visits Authorized [id number] Closed Patient Cleared - Qualified 100% FAS 08/11/2021 11/09/2021 99 99 INFORMATION SOURCE (unrecogn ized section and content) DATE CREATED AUTHOR 12/09/2023 [facility] DATE CREATED AUTHOR AUTHOR'S ORGANIZ ATION 03/13/2024 [facility] DATE CREATED AUTHOR AUTHOR'S ORGANIZ ATION 07/05/2024 [facility] DATE CREATED AUTHOR AUTHOR'S ORGANIZ ATION 07/24/2025 [facility] FOR RECORDS PERTAINING TO PATIENTS WHO [...] BE BASED ON THE PRIMARY CLINICAL RECORDS. [employer] provides no warranty or guarantee of the accuracy or completeness of information in this document.
== END | disposition home or self-care (01) ==
LOC: VSLAB 14:02
PROVIDERS: PCP Nurse Practitioner Family; Referring Provider Nurse Practitioner Family; Visit Provider Nurse Practitioner Family
DX: I10 Essential (primary) hypertension (principal); R73.03 Prediabetes
CPT/HCPCS: 36415; 80053; 83036; 84443; 85025

== ENCOUNTER → 2025-08-26 | Outpatient (CLI) | payer MEDICARE, SELFPAY ==
[2025-09-02 15:08] LABS: Calprotectin, Stool 119 ug/g (0-120)
== END | disposition home or self-care (01) ==
LOC: LABSPEC 13:06
PROVIDERS: PCP Nurse Practitioner Family; Referring Provider Student in an Organized Health Care Education/Training Program; Visit Provider Student in an Organized Health Care Education/Training Program
DX: K52.9 Noninfective gastroenteritis and colitis, unspecified (principal)
CPT/HCPCS: 83993

== ENCOUNTER 2025-09-05 10:37 | Day surgery (SDC) | payer MEDICARE, SELFPAY ==
[2025-09-05] MEDS: Lidocaine Jelly 2% 20 ML Syringe (URO-JET) 1 APPLIC (10:50)
[2025-09-05 10:52] VITALS: BP 151/91; PULSE 90; RESP 16; TEMP 36.4; O2SAT 97
== END 2025-09-05 11:22 | disposition home or self-care (01) ==
PROVIDERS: PCP Nurse Practitioner Family; Referring Provider Nurse Practitioner Family; Visit Provider Internal Medicine Gastroenterology
PROC: F00ZJWZ Instrumental Swallowing and Oral Function Assessment using Swallowing Equipment (ICD-10-PCS; CPT 43235; principal; 2025-09-05 10:25)
DX: K22.4 Dyskinesia of esophagus (principal)
CPT/HCPCS: 91010